=== PATIENT | female | born 1995 | race Caucasian/White ===

== ENCOUNTER 2018-05-04 13:16 | Emergency (ER) | payer OTHER ==
[2018-05-04 14:34] LABS: Urine Blood NEGATIVE (NEG); Urine Glucose NEGATIVE (NEG); Urine Protein 1+ (NEG); Urine Specific Gravity 1.025 (1.005-1.030); Urine pH 6.5 (5.0-7.0)
[2018-05-04] MEDS ORDERED: NA CHLORIDE 0.9% 1,000 ML ONE (14:55)
[2018-05-04 14:59] LABS: Absolute Lymphocytes (CBC) 1.6 K/uL (0.7-4.9); Absolute Monocytes 0.7 K/uL (0.1-1.3); Absolute Neutrophil 9.9 K/uL (1.8-8.0); Basophils % 0.6 % (0-1.3); Eosinophils % 0.7 % (0-4.4); Hematocrit 38.4 % (36.0-45.0); Lymphocytes % 12.6 % (15.3-44.8); MCH 29.3 pg (27.0-35.0); MCV 88.1 fL (80-100); MPV 8.3 fL (7.6-11.3); Monocytes % 5.6 % (3.3-12.3); RBC Red Blood Cell Count 4.36 M/uL (3.86-4.86)
[2018-05-04 15:01] LABS: Urine Amorphous Sediment 2+ /HPF (NONE SEEN); Urine Bacteria 20-50 /HPF (<20); Urine Culture Reflex Order REFLEXED; Urine RBC NONE SEEN /HPF (NONE SEEN)
[2018-05-04 15:26] LABS: BUN Blood Urea Nitrogen 9 mg/dL (7-18); Bicarbonate 26 mmol/L (21-32); Glucose Level 94 mg/dL (74-106); Potassium 3.6 mmol/L (3.5-5.1); Sodium Level 138 mmol/L (136-145)
[2018-05-04 15:34] LABS: HCG, Quantitative 31686 mIU/mL (1-3)
--- NOTE | 2018-05-04 16:30 | ER ---
Nurse's Notes [facility] Name: Maricel Nur Age: 22 yrs Sex: Female : 1995 Arrival Date: 05/04/2018 Time: 13:19 Bed 7 Private MD: None, None Diagnosis: Near syncope;Urinary tract infection, site not specified Presentation: 05/04 14:03 Presenting complaint: Patient states: Pt reports standing while at work, got jl7 lightheaded and ears started ringing, body got cold and clammy and "The next thing I knew I woke up on the floor.". Transition of care: patient was not received from another setting of care. Onset of symptoms was May 04, 2018 at 12:30. Risk Assessment: Do you want to hurt yourself or someone else? Patient reports no desire to harm self or others. Initial Sepsis Screen: Does the patient meet any 2 criteria? No. Patient's initial sepsis screen is negative. Does the patient have a suspected source of infection? No. Patient's initial sepsis screen is negative. Care prior to arrival: None. 14:03 Method Of Arrival: Ambulatory [facility] 14:03 Acuity: ALEXANDER 3 jl7 Triage Assessment: 14:08 General: Appears in no apparent distress. uncomfortable, Behavior is calm, cooperative, jl7 appropriate for age. Pain: Complains of pain in left lower quadrant Pain does not radiate. Pain currently is 3 out of 10 on a pain scale. Neuro: Level of Consciousness is awake, alert, obeys commands, Oriented to person, place, time, situation, Reports dizziness. 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 - Social history:: Smoking status: Patient/guardian denies using tobacco. - Ebola Screening: : No symptoms or risks identified at this time. Screenin:11 Abuse screen: Denies threats or abuse. Nutritional screening: No deficits noted. tw2 Tuberculosis screening: No symptoms or risk factors identified. Fall Risk None identified. Assessment: 15:01 General: Appears in no apparent distress. slender, Behavior is calm, cooperative, tw2 appropriate for age. Pain: Denies pain. Neuro: Level of Consciousness is awake, alert, obeys commands, Oriented to person, place, time, situation. Cardiovascular: Denies chest pain, shortness of breath, Heart tones S1 S2 Patient's skin is warm and dry. Respiratory: Airway is patent Respiratory effort is even, unlabored, Respiratory pattern is regular, symmetrical, Breath sounds are clear bilaterally. GI: No signs and/or symptoms were reported involving the gastrointestinal system. Abdomen is flat, Bowel sounds. : No signs and/or symptoms were reported regarding the genitourinary system. EENT: No signs and/or symptoms were reported regarding the EENT system. Derm: No signs and/or symptoms reported regarding the dermatologic system. Skin is intact, is healthy with good turgor, Skin temperature is warm. Musculoskeletal: Range of motion: intact in all extremities. 16:00 Reassessment: Patient appears in no apparent distress at this time. No changes from tw2 previously documented assessment. Patient and/or family updated on plan of care and expected duration. Pain level reassessed. Patient is alert, oriented x 3, equal unlabored respirations, skin warm/dry/pink. 16:52 Reassessment: Patient appears in no apparent distress at this time. No changes from tw2 previously documented assessment. Patient and/or family updated on plan of care and expected duration. Pain level reassessed. Patient is alert, oriented x 3, equal unlabored respirations, skin warm/dry/pink. 17:53 Reassessment: Patient appears in no apparent distress at this time. No changes from tw2 previously documented assessment. Patient and/or family updated on plan of care and expected duration. Pain level reassessed. Patient is alert, oriented x 3, equal unlabored respirations, skin warm/dry/pink. Vital Signs: 14:08 BP 106 / 71; Pulse 91; Resp 16 S; Temp 99.1(O); Pulse Ox 100% on R/A; Weight 56.25 kg jl7 (R); Height 5 ft. 5 in. (165.10 cm) (R); Pain 3/10; 15:36 BP 105 / 69 Supine; Pulse 70; Resp 17; tw2 15:36 BP 101 / 68 Sitting; Pulse 80; tw2 15:36 BP 103 / 63 Standing; Pulse 84; tw2 16:51 BP 105 / 71; Pulse 75; Resp 17; Pulse Ox 99% on R/A; tw2 17:53 BP 106 / 66; Pulse 63; Resp 17; Pulse Ox 98% on R/A; tw2 14:08 Body Mass Index 20.63 (56.25 kg, 165.10 cm) jl7 ED Course: 13:19 Patient arrived in ED. mr 13:19 None, None is Private Physician. mr 14:06 Triage completed. jl7 14:08 Arm band placed on right wrist. jl7 14:11 Bed in low position. Call light in reach. Pulse ox on. NIBP on. tw2 14:16 Thai Guillen NP is PHCP. pm1 14:16 Rudolph Jain MD is Attending Physician. pm1 14:40 Mona Lancaster RN is Primary Nurse. tw2 14:40 Missed attempt(s): 22 gauge in right antecubital area. blood collected and sent. tw2 Bleeding controlled, band aid applied, catheter tip intact. 14:53 EKG done, by certified pharmacy technician. reviewed by Thai Guillen NP. sm3 15:00 Missed attempt(s): 22 gauge in right antecubital area. Bleeding controlled, band aid tw2 applied, catheter tip intact. 15:27 US Transvaginal Ob In Process Unspecified. EDMS 15:35 EKG done, by certified pharmacy technician. reviewed by Thai Guillen NP. sm3 15:45 Inserted saline lock: 24 gauge in left antecubital area, using aseptic technique. tw2 15:45 No provider procedures requiring assistance completed. tw2 16:50 Awaiting: completion of IV fluids. tw2 17:27 Awaiting: completion of iv fluids, pt has 24 g, fluids placed on pump at this time. tw2 17:55 IV discontinued, intact, bleeding controlled, No redness/swelling at site. Pressure tw2 dressing applied. Administered Medications: 15:45 Drug: NS 0.9% 1000 ml Route: IV; Rate: 1000 ml; Site: left antecubital; hb 17:54 Follow up: Response: No adverse reaction; IV Status: Completed infusion; IV Intake: tw2 1000ml Intake: 17:54 IV: 1000ml; Total: 1000ml. tw2 Outcome: 16:30 Discharge ordered by . pm1 17:55 Discharged to home ambulatory. tw2 17:55 Condition: stable 17:55 Discharge instructions given to patient, Instructed on discharge instructions, follow up and referral plans. medication usage, Demonstrated understanding of instructions, follow-up care, medications, Prescriptions given X 1. 17:56 Patient left the ED. tw2 Signatures: Dispatcher [employer] [facility] OneilDonna mr GuillenThai, PARTS SALES COUNTERPERSON PARTS SALES COUNTERPERSON pm1 Beverly Pena, RN RN hb Mona Lancaster RN RN tw2 Tyrone Bañuelos RN RN jl7 Deysi Paniagua 3 Corrections: (The following items were deleted from the chart) 15:01 14:40 Missed attempt(s): 22 gauge in right antecubital area. Bleeding controlled, band tw2 aid applied, catheter tip intact. tw2 17:12 15:48 Inserted saline lock: 24 gauge in left antecubital area, using aseptic technique. tw2
--- NOTE | 2018-05-04 16:30 | EDPHYS ---
Physician Documentation [facility] Name: Maricel Nur Age: 22 yrs Sex: Female : 1995 Arrival Date: 05/04/2018 Time: 13:19 Bed 7 Private MD: None, None ED Physician Rudolph Jain HPI: 05/04 15:00 This 22 yrs old Female presents to ER via Ambulatory with complaints of 7 wks pm1 , Feeling faint and abdominal cramping. 15:00 The patient presents with Suprapubic cramping. Onset: The symptoms/episode pm1 began/occurred today. The symptoms do not radiate. Associated signs and symptoms: Pertinent positives: Feeling faint, Pertinent negatives: nausea and vomiting, chest pain, diarrhea, dysuria, fever, headache, shortness of breath, vaginal discharge. The symptoms are described as crampy. Modifying factors: The symptoms are alleviated by nothing, the symptoms are aggravated by nothing. The patient has not experienced similar symptoms in the past. Patient at work standing for a long period and started feeling faint. Patient did not pass out but felt like she was going to. Patient sat down and symptoms resolved. No chest pain or shortness of breath. Patient reports she is 7 weeks and has had some pelvic cramping today. No vaginal bleeding or discharge. 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 - Social history:: Smoking status: Patient/guardian denies using tobacco. - Ebola Screening: : No symptoms or risks identified at this time. ROS: 15:00 Constitutional: Negative for fever, chills, and weight loss, Eyes: Negative for injury, pm1 pain, redness, and discharge, ENT: Negative for injury, pain, and discharge, Neck: Negative for injury, pain, and swelling, Cardiovascular: Negative for chest pain, palpitations, and edema, Respiratory: Negative for shortness of breath, cough, wheezing, and pleuritic chest pain, Back: Negative for injury and pain, : Negative for injury, bleeding, discharge, and swelling, MS/Extremity: Negative for injury and deformity, Skin: Negative for injury, rash, and discoloration. 15:00 Abdomen/GI: Positive for abdominal cramps, of the suprapubic area. 15:00 Neuro: Positive for near syncope, Negative for headache, numbness, syncope, tingling, weakness. Exam: 15:00 Constitutional: This is a well developed, well nourished patient who is awake, alert, pm1 and in no acute distress. Head/Face: Normocephalic, atraumatic. Eyes: Pupils equal round and reactive to light, extra-ocular motions intact. Lids and lashes normal. Conjunctiva and sclera are non-icteric and not injected. Cornea within normal limits. Periorbital areas with no swelling, redness, or edema. ENT: Nares patent. No nasal discharge, no septal abnormalities noted. Tympanic membranes are normal and external auditory canals are clear. Oropharynx with no redness, swelling, or masses, exudates, or evidence of obstruction, uvula midline. Mucous membranes moist. Neck: Trachea midline, no thyromegaly or masses palpated, and no cervical lymphadenopathy. Supple, full range of motion without nuchal rigidity, or vertebral point tenderness. No Meningismus. Chest/axilla: Normal chest wall appearance and motion. Nontender with no deformity. No lesions are appreciated. Cardiovascular: Regular rate and rhythm with a normal S1 and S2. No gallops, murmurs, or rubs. Normal PMI, no JVD. No pulse deficits. Respiratory: Lungs have equal breath sounds bilaterally, clear to auscultation and percussion. No rales, rhonchi or wheezes noted. No increased work of breathing, no retractions or nasal flaring. Abdomen/GI: Soft, non-tender, with normal bowel sounds. No distension or tympany. No guarding or rebound. No evidence of tenderness throughout. Back: No spinal tenderness. No costovertebral tenderness. Full range of motion. Skin: Warm, dry with normal turgor. Normal color with no rashes, no lesions, and no evidence of cellulitis. MS/ Extremity: Pulses equal, no cyanosis. Neurovascular intact. Full, normal range of motion. Neuro: Awake and alert, GCS 15, oriented to person, place, time, and situation. Cranial nerves II-XII grossly intact. Motor strength 5/5 in all extremities. Sensory grossly intact. Cerebellar exam normal. Normal gait. Vital Signs: 14:08 BP 106 / 71; Pulse 91; Resp 16 S; Temp 99.1(O); Pulse Ox 100% on R/A; Weight 56.25 kg jl7 (R); Height 5 ft. 5 in. (165.10 cm) (R); Pain 3/10; 15:36 BP 105 / 69 Supine; Pulse 70; Resp 17; tw2 15:36 BP 101 / 68 Sitting; Pulse 80; tw2 15:36 BP 103 / 63 Standing; Pulse 84; tw2 16:51 BP 105 / 71; Pulse 75; Resp 17; Pulse Ox 99% on R/A; tw2 17:53 BP 106 / 66; Pulse 63; Resp 17; Pulse Ox 98% on R/A; tw2 14:08 Body Mass Index 20.63 (56.25 kg, 165.10 cm) 7 MDM: 14:25 Patient medically screened. pm1 15:27 Data reviewed: vital signs. Data interpreted: Pulse oximetry: on room air is 100 %. pm1 Interpretation: normal. 16:27 Counseling: I had a detailed discussion with the patient and/or guardian regarding: the pm1 historical points, exam findings, and any diagnostic results supporting the discharge/admit diagnosis, lab results, radiology results, the need for outpatient follow up, to return to the emergency department if symptoms worsen or persist or if there are any questions or concerns that arise at home. 05/04 14:31 Order name: Urine Dipstick--Ancillary (enter results); Complete Time: 14:42 bd 05/04 14:31 Order name: Urine --Ancillary (enter results); Complete Time: 14:42 bd 05/04 14:36 Order name: Quantitative Hcg; Complete Time: 16:25 pm1 05/04 14:36 Order name: Abo/rh Typing; Complete Time: 16:25 pm1 05/04 14:36 Order name: Basic Metabolic Panel; Complete Time: 16:25 pm05/04 14:36 Order name: CBC with Diff; Complete Time: 16:25 pm05/04 14:36 Order name: IV Saline Lock; Complete Time: 16:01 pm1 05/04 14:36 Order name: Labs collected and sent; Complete Time: 14:41 pm1 05/04 14:36 Order name: Urine Microscopic Only; Complete Time: 16:25 pm1 05/04 14:36 Order name: US Transvaginal Ob; Complete Time: 21:45 pm1 05/04 14:36 Order name: EKG; Complete Time: 14:36 pm1 05/04 15:03 Order name: Urine Culture [facility] 05/04 15:43 Order name: EKG Electrocardiogram; Complete Time: 15:56 EDAL 05/04 14:36 Order name: NPO; Complete Time: 14:41 pm1 05/04 14:36 Order name: EKG - Nurse/Tech; Complete Time: 15:56 pm1 05/04 14:42 Order name: Orthostatic Blood Pressure; Complete Time: 15:33 pm1 Administered Medications: 15:45 Drug: NS 0.9% 1000 ml Route: IV; Rate: 1000 ml; Site: left antecubital; hb 17:54 Follow up: Response: No adverse reaction; IV Status: Completed infusion; IV Intake: tw2 1000ml Disposition: 05/05 07:14 Co-signature as Attending Physician, Rudolph Jain MD. rn Disposition: 05/04/18 16:30 Discharged to Home. Impression: Near syncope, Urinary tract infection, site not specified. - Condition is Stable. - Discharge Instructions: Near-Syncope, and Urinary Tract Infection. - Prescriptions for Macrobid 100 mg Oral Capsule - take 1 capsule by ORAL route every 12 hours for 10 days; 20 capsule. - Medication Reconciliation Form, Thank You Letter, Antibiotic Education, Work release form form. - Follow up: Emergency Department; When: As needed; Reason: Worsening of condition. Follow up: Private Physician; When: 2 - 3 days; Reason: Recheck today's complaints, Continuance of care, Re-evaluation by your physician. - Problem is new. - Symptoms have improved. Signatures: Dispatcher [employer] [facility] Rudolph Jain MD MD rn Marinas, Patrick, NP DAMAGE PREVENTION COORDINATOR pm1 Beverly Pena RN RN Mona Reid RN RN tw2 Tyrone Bañuelos RN RN jl7 Corrections: (The following items were deleted from the chart) 05/04 16:31 16:30 05/04/2018 16:30 Discharged to Home. Impression: Near syncope. Condition is pm1 Stable. Forms are Medication Reconciliation Form, Thank You Letter, Antibiotic Education, Prescription Opioid Use. Follow up: Emergency Department; When: As needed; Reason: Worsening of condition. Follow up: Private Physician; When: 2 - 3 days; Reason: Recheck today's complaints, Continuance of care, Re-evaluation by your physician. Problem is new. Symptoms have improved. pm1 17:56 16:31 05/04/2018 16:30 Discharged to Home. Impression: Near syncope; Urinary tract tw2 infection, site not specified. Condition is Stable. Discharge Instructions: Near-Syncope. Forms are Medication Reconciliation Form, Thank You Letter, Antibiotic Education, Prescription Opioid Use. Follow up: Emergency Department; When: As needed; Reason: Worsening of condition. Follow up: Private Physician; When: 2 - 3 days; Reason: Recheck today's complaints, Continuance of care, Re-evaluation by your physician. Problem is new. Symptoms have improved. pm1
--- NOTE | 2018-05-04 18:07 | RAD REPORT ---
EXAM DESCRIPTION: US - Transvaginal OB - 05/04/2018 3:26 pm CLINICAL HISTORY: Abdominal cramping, COMPARISON: None. FINDINGS: Endovaginal sonography shows a long and closed cervical canal. No mass, hematoma or other abnormality of the cervical canal. Normal shaped gestational sac is present in the fundal portion of the endometrial cavity. Gestational sac and crown-rump length measurements correspond to 6 week 1 day age. Calculated GINA is 12/27/2018. Heart rate was 110 BPM. No hematoma or mass within the endometria l cavity. Left ovary contains a thin-walled anechoic 4.5 cm cyst. An anechoic 1.2 cm cyst present in the right ovary. No suspicious ovarian or adnexal finding. No free fluid collection. IMPRESSION: Single 6 week 1 day IUP. Heart rate is 110 BPM with GINA of 12/27/2018. No hematoma, mass or acute intrauterine finding. Large thin-walled 4.5 cm left ovarian cyst and 1.2 cm right ovarian cyst. No suspicious characteristi cs.
[2018-05-04 18:14] VITALS: TEMP 99.1
[2018-05-04 18:16] VITALS: BP 106/66; O2SAT 98
--- NOTE | 2018-05-04 18:48 | EKG ---
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
--- NOTE | 2018-05-04 18:48 | EKG ---
Test Date: 2018-05-04 Test Time: 14:44:46 Jewel Staker: INDRA MEASUREMENT RESULTS: Intervals: Rate: 72 KS: 120 QRSD: 82 QT: 376 QTc: 411 [place]: P: 74 KS: 120 QRS: 76 T: 65 INTERPRETIVE STATEMENTS: Normal sinus rhythm with sinus arrhythmia Biatrial enlargement Abnormal ECG Compared to ECG 08/24/2014 20:48:01 No significant changes Electronically Signed On 05-04-18 18:47:10 CDT by Pool Carlos
== END 2018-05-04 17:56 | disposition home or self-care (01) ==
LOC: ER 13:16
DX: O23.41 Unspecified infection of urinary tract in pregnancy, first trimester (principal); R55 Syncope and collapse; Z3A.01 Less than 8 weeks gestation of pregnancy; Z88.1 Allergy status to other antibiotic agents; Z88.8 Allergy status to other drugs, medicaments and biological substances
CPT/HCPCS: 36415; 76817; 80048; 81003; 81015; 81025; 84702; 85025; 86900; 86901; 87086; 87088; 93005; 96360; 96361; 99284; J7030

== ENCOUNTER 2018-05-13 09:00 | Emergency (ER) | payer OTHER ==
[2018-05-13] MEDS ORDERED: FAMOTIDINE 20 MG/2 ML VIAL IV ONE (09:42)
[2018-05-13] MEDS ORDERED: PROMETHAZINE 25 MG/ML VIAL ONE (09:42)
[2018-05-13 09:58] LABS: Urine Blood NEGATIVE (NEG); Urine Glucose NEGATIVE (NEG); Urine Protein NEGATIVE (NEG); Urine pH 8.5 (5.0-7.0)
[2018-05-13 10:10] LABS: Absolute Lymphocytes (CBC) 2.1 K/uL (0.7-4.9); Absolute Monocytes 0.7 K/uL (0.1-1.3); Absolute Neutrophil 8.7 K/uL (1.8-8.0); Basophils % 0.4 % (0-1.3); Eosinophils % 1.2 % (0-4.4); Hematocrit 37.9 % (36.0-45.0); MCH 29.9 pg (27.0-35.0); MCV 89.3 fL (80-100); MPV 8.2 fL (7.6-11.3); Monocytes % 6.3 % (3.3-12.3); RBC Red Blood Cell Count 4.25 M/uL (3.86-4.86)
[2018-05-13 10:19] LABS: ALT/SGPT 15 U/L (12-78); AST/SGOT 11 U/L (15-37); Albumin 3.6 g/dL (3.4-5.0); Alkaline Phosphatase 62 U/L (45-117); BUN Blood Urea Nitrogen 10 mg/dL (7-18); Bicarbonate 28 mmol/L (21-32); Bilirubin Direct < 0.1 mg/dL (0-0.2); Bilirubin Total 0.4 mg/dL (0.2-1.0); Glucose Level 87 mg/dL (74-106); Lipase 86 U/L (73-393); Protein, Total 7.8 g/dL (6.4-8.2); Sodium Level 137 mmol/L (136-145)
--- NOTE | 2018-05-13 11:50 | RAD REPORT ---
EXAM DESCRIPTION: US - Abdomen Exam Limited - 05/13/2018 11:11 am CLINICAL HISTORY: Abdominal pain Preliminary findings provided at the time of the study. COMPARISON: CT study June 2017 FINDINGS: Limited sonography of the right lower quadrant performed. No abdominal wall mass or hernia defects seen. Peristalsing bowel loops were seen. No free fluid or f ixed mass lesion identifiable. Appendix is not uniquely identifiable and cannot be further assessed. IMPRESSION: Limited right lower quadrant examination did not identify the appendix. Appendicitis can not be evaluated. No hernia defect, abdominal wall mass or focal right lower quadrant abnormality seen.
--- NOTE | 2018-05-13 13:25 | EDPHYS ---
Physician Documentation [facility] Name: Maricel Nur Age: 22 yrs Sex: Female : 1995 Arrival Date: 05/13/2018 Time: 09:06 Bed 19 Private MD: ED Physician Shad Mendoza HPI: 05/13 10:13 This 22 yrs old Female presents to ER via Ambulatory with complaints of kdr Nausea/Vomiting/Diarrhea. 10:13 The patient presents to the emergency department with nausea, that is mild, vomiting, kdr that is intermittent, diarrhea, that is intermittent. Onset: The symptoms/episode began/occurred gradually, 2 day(s) ago. Possible causes: unknown, . The symptoms are aggravated by nothing. food , The symptoms are alleviated by remaining still. Associated signs and symptoms: Pertinent positives: abdominal pain, diarrhea, GI bleeding, nausea, vomiting, can't keep any food down. Severity of symptoms: At their worst the symptoms were mild moderate just prior to arrival, in the emergency department the symptoms are unchanged. The patient has not experienced similar symptoms in the past. The patient has not recently seen a physician. 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 - Social history:: Smoking status: Patient/guardian denies using tobacco. - Ebola Screening: : Patient denies exposure to infectious person Patient denies travel to an Ebola-affected area in the 21 days before illness onset. ROS: 10:13 Constitutional: Negative for fever, chills, and weight loss, Eyes: Negative for injury, kdr pain, redness, and discharge, ENT: Negative for injury, pain, and discharge, Neck: Negative for injury, pain, and swelling, Cardiovascular: Negative for chest pain, palpitations, and edema, Respiratory: Negative for shortness of breath, cough, wheezing, and pleuritic chest pain, Back: Negative for injury and pain, : Negative for injury, bleeding, discharge, and swelling, MS/Extremity: Negative for injury and deformity, Skin: Negative for injury, rash, and discoloration, Neuro: Negative for headache, weakness, numbness, tingling, and seizure activity. Psych: Negative for depression, anxiety, suicide ideation, homicidal ideation, and hallucinations, Allergy/Immunology: Negative for hives, rash, and allergies, Endocrine: Negative for neck swelling, polydipsia, polyuria, polyphagia, and marked weight changes, Hematologic/Lymphatic: Negative for swollen nodes, abnormal bleeding, and unusual bruising. 10:13 Abdomen/GI: Positive for abdominal pain, nausea, vomiting, and diarrhea, rectal bleeding, Negative for constipation, abdominal cramps, abdominal distension, dysphagia, hematemesis, black/tarry stool, rectal pain. Exam: 10:13 Constitutional: This is a well developed, well nourished patient who is awake, alert, kdr and in no acute distress. Head/Face: Normocephalic, atraumatic. Eyes: Pupils equal round and reactive to light, extra-ocular motions intact. Lids and lashes normal. Conjunctiva and sclera are non-icteric and not injected. Cornea within normal limits. Periorbital areas with no swelling, redness, or edema. Neck: Trachea midline, no thyromegaly or masses palpated, and no cervical lymphadenopathy. Supple, full range of motion without nuchal rigidity, or vertebral point tenderness. No Meningismus. Chest/axilla: Normal chest wall appearance and motion. Nontender with no deformity. No lesions are appreciated. Cardiovascular: Regular rate and rhythm with a normal S1 and S2. No gallops, murmurs, or rubs. Normal PMI, no JVD. No pulse deficits. Respiratory: Lungs have equal breath sounds bilaterally, clear to auscultation and percussion. No rales, rhonchi or wheezes noted. No increased work of breathing, no retractions or nasal flaring. Back: No spinal tenderness. No costovertebral tenderness. Full range of motion. Skin: Warm, dry with normal turgor. Normal color with no rashes, no lesions, and no evidence of cellulitis. MS/ Extremity: Pulses equal, no cyanosis. Neurovascular intact. Full, normal range of motion. Neuro: Awake and alert, GCS 15, oriented to person, place, time, and situation. Cranial nerves II-XII grossly intact. Motor strength 5/5 in all extremities. Sensory grossly intact. Cerebellar exam normal. Normal gait. Psych: Awake, alert, with orientation to person, place and time. Behavior, mood, and affect are within normal limits. 10:13 Abdomen/GI: Inspection: abdomen appears normal, Bowel sounds: active, Palpation: soft, mild abdominal tenderness, in the right lower quadrant, mass, is not appreciated, rebound tenderness, is not appreciated, voluntary guarding, is not appreciated, involuntary guarding, is not appreciated. Vital Signs: 09:25 BP 106 / 70; Pulse 69; Resp 15; Temp 98.5(TE); Pulse Ox 100% on R/A; Weight 57.15 kg; ss Height 5 ft. 5 in. (165.10 cm); Pain 4/10; 10:30 BP 115 / 75; Pulse 54; Resp 16; Pulse Ox 99% on R/A; Pain 3/10; em 11:30 BP 109 / 82; Pulse 61; Resp 15; Pulse Ox 100% on R/A; ss 12:26 BP 116 / 67; Pulse 57; Resp 17; Pulse Ox 100% on R/A; Pain 4/10; ss 13:11 BP 110 / 55; Pulse 67; Resp 18; Temp 99.1(O); Pulse Ox 100% on R/A; Pain 4/10; em 09:25 Body Mass Index 20.97 (57.15 kg, 165.10 cm) MDM: 10:25 Data reviewed: vital signs, nurses notes. ED course: Reviewed US report from 05/04/2018 kdr - normal single IUP 6D2wk. 13:24 Patient medically screened. kdr 13:24 ED course: Given that the patient is having RLQ pain, low WBC count, n/v/d - will send [facility]. ED course: On re-evaluation, the patient continues to have RLQ pain but no rebound. N/v is improved.. 05/13 09:29 Order name: Basic Metabolic Panel; Complete Time: : kdr 05/13 09:29 Order name: CBC with Diff; Complete Time: 10: kdr 05/13 09:29 Order name: Creatinine for Radiology; Complete Time: : kdr 05/13 09:29 Order name: Hepatic Function; Complete Time: : kdr 05/13 09:29 Order name: Lipase; Complete Time: 10:28 kdr 05/13 09:29 Order name: IV Saline Lock; Complete Time: 10:45 kdr 05/13 09:29 Order name: Labs collected and sent; Complete Time: 10:46 kdr 05/13 09:29 Order name: Urine Dipstick-Ancillary (obtain specimen); Complete Time: 09:35 kdr 05/13 09:51 Order name: Urine Dipstick--Ancillary (enter results); Complete Time: 10:10 eb 05/13 09:51 Order name: Urine --Ancillary (enter results); Complete Time: 10:10 eb 05/13 10:28 Order name: US Abdomen Limited; Complete Time: 12:04 kdr Administered Medications: 10:00 Drug: Phenergan 12.5 mg Route: IVP; Site: left antecubital; ss 10:29 Follow up: Response: No adverse reaction; Nausea is decreased em 10:00 Drug: Pepcid 20 mg Route: IVP; Site: left antecubital; ss 10:29 Follow up: Response: No adverse reaction em Disposition: 05/13/18 13:24 Transfer ordered to [facility]. Diagnosis are Abdominal and pelvic pain, RLQ pain. - Reason for transfer: Higher level of care. - Accepting physician is Jailene Esposito. - Condition is Fair. - Problem is new. - Symptoms are unchanged. Signatures: Dispatcher [employer] EDRI Shad Mendoza MD MD kdr Ac Ly, LINE RIDER LINE RIDER em Matilde Taylor, RN RN ss Corrections: (The following items were deleted from the chart) 09:59 09:29 UA MICROSCOPIC+U.LAB.BRZ ordered. [facility] EDRI 13:52 13:24 05/13/2018 13:24 Transfer ordered to [facility]. Diagnosis is Abdominal and em pelvic pain; RLQ pain. Reason for transfer: Higher level of care. Accepting physician is Jailene Esposito. Condition is Fair. Problem is new. Symptoms are unchanged. kdr
--- NOTE | 2018-05-13 13:25 | ER ---
Nurse's Notes [facility] Name: Maricel Nur Age: 22 yrs Sex: Female : 1995 Arrival Date: 05/13/2018 Time: 09:06 Bed 19 Private MD: Diagnosis: Abdominal and pelvic pain;RLQ pain Presentation: 05/13 09:19 Presenting complaint: Patient states: N/V and blood tinged diarrhea that began ss yesterday. Pt reports she is 8 weeks and 2 days . Denies vaginal bleeding. Transition of care: patient was not received from another setting of care. Onset of symptoms was May 12, 2018. Risk Assessment: Do you want to hurt yourself or someone else? Patient reports no desire to harm self or others. Initial Sepsis Screen: Does the patient meet any 2 criteria? No. Patient's initial sepsis screen is negative. Does the patient have a suspected source of infection? No. Patient's initial sepsis screen is negative. Care prior to arrival: None. 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 - Social history:: Smoking status: Patient/guardian denies using tobacco. - Ebola Screening: : Patient denies exposure to infectious person Patient denies travel to an Ebola-affected area in the 21 days before illness onset. Screenin:22 Abuse screen: Denies threats or abuse. Nutritional screening: No deficits noted. em Tuberculosis screening: No symptoms or risk factors identified. Fall Risk None identified. Assessment: 09:30 General: Appears in no apparent distress. uncomfortable, Behavior is calm, cooperative, em Reports N/V/D since yesterday evening, vomited several times, c/o LRQ pain, states she is 8 weeks , denies pain with urination. Pain: Complains of pain in right lower quadrant. Neuro: Level of Consciousness is awake, alert, obeys commands, Oriented to person, place, time, situation. Cardiovascular: Denies chest pain, shortness of breath, Capillary refill < 3 seconds Patient's skin is warm and dry. Respiratory: Airway is patent Respiratory effort is even, unlabored, Respiratory pattern is regular, symmetrical. GI: Abdomen is flat, Bowel sounds present X 4 quads. Abd is soft X 4 quads Abdomen is tender to palpation in right lower quadrant Reports diarrhea, nausea, vomiting. : Urine is clear. EENT: No signs and/or symptoms were reported regarding the EENT system. Derm: Skin is intact, Skin is pink, warm \T\ dry. Musculoskeletal: Range of motion: intact in all extremities. 09:40 General: The previous assessment is accurate, call light remains within reach. . ss 10:30 Reassessment: Patient appears in no apparent distress at this time. Patient and/or em family updated on plan of care and expected duration. Pain level reassessed. Patient is alert, oriented x 3, equal unlabored respirations, skin warm/dry/pink. Patient states feeling better. 11:30 Reassessment: Patient appears in no apparent distress at this time. Patient and/or ss family updated on plan of care and expected duration. Pain level reassessed. Patient is alert, oriented x 3, equal unlabored respirations, skin warm/dry/pink. warm blanket given. 12:25 Reassessment: Patient appears in no apparent distress at this time. Patient and/or ss family updated on plan of care and expected duration. Pain level reassessed. Patient is alert, oriented x 3, equal unlabored respirations, skin warm/dry/pink. rates pain 4/10, currently doesn't want any medications Patient states feeling better. 13:21 Reassessment: Patient appears in no apparent distress at this time. Patient and/or em family updated on plan of care and expected duration. Pain level reassessed. Patient is alert, oriented x 3, equal unlabored respirations, skin warm/dry/pink. Patient states symptoms have improved. 13:25 Reassessment: Patient appears in no apparent distress at this time. report given to marco Connelly RN at [facility], pending EMS to transfer pt. 13:50 Reassessment: Patient appears in no apparent distress at this time. Patient and/or em family updated on plan of care and expected duration. Pain level reassessed. Patient is alert, oriented x 3, equal unlabored respirations, skin warm/dry/pink. report given to EMS, no further questions. Vital Signs: 09:25 BP 106 / 70; Pulse 69; Resp 15; Temp 98.5(TE); Pulse Ox 100% on R/A; Weight 57.15 kg; ss Height 5 ft. 5 in. (165.10 cm); Pain 4/10; 10:30 BP 115 / 75; Pulse 54; Resp 16; Pulse Ox 99% on R/A; Pain 3/10; em 11:30 BP 109 / 82; Pulse 61; Resp 15; Pulse Ox 100% on R/A; ss 12:26 BP 116 / 67; Pulse 57; Resp 17; Pulse Ox 100% on R/A; Pain 4/10; ss 13:11 BP 110 / 55; Pulse 67; Resp 18; Temp 99.1(O); Pulse Ox 100% on R/A; Pain 4/10; em 09:25 Body Mass Index 20.97 (57.15 kg, 165.10 cm) ED Course: 09:06 Patient arrived in ED. as 09:07 Shad Mendoza MD is Attending Physician. kdr 09:12 Ac Ly LVN is Primary Nurse. em 09:24 Triage completed. ss 09:25 Arm band placed on left wrist. ss 09:45 Initial lab(s) drawn, by me, sent to lab. Urine collected: clean catch specimen, clear. em Inserted saline lock: 20 gauge in left antecubital area, using aseptic technique. Blood collected. 10:22 Patient has correct armband on for positive identification. Bed in low position. Call em light in reach. Side rails up X2. 11:02 Ultrasound completed. Patient tolerated well. sg3 11:11 US Abdomen Limited In Process Unspecified. EDMS 13:05 \[id number] initiated transfer with Pop Barnett at the [facility] transfer Center.\T\[id number] eb Administrative Approval gishaistan by Pop. Dr. Bonny Lozano has accepted the patient in transfer she does not need to speak to our doctor for doc to doc at this time. Patient is to go to the ER. Report to be called to [phone]. 13:20 No provider procedures requiring assistance completed. em 13:43 Patient transferred, IV remains in place. em Administered Medications: 10:00 Drug: Phenergan 12.5 mg Route: IVP; Site: left antecubital; ss 10:29 Follow up: Response: No adverse reaction; Nausea is decreased em 10:00 Drug: Pepcid 20 mg Route: IVP; Site: left antecubital; ss 10:29 Follow up: Response: No adverse reaction em Outcome: 13:24 ER care complete, transfer ordered by . kdr 13:43 Transferred by ground EMS to [facility], Transfer form em completed. 13:43 Condition: good 13:43 Instructed on the need for transfer, Demonstrated understanding of instructions. 13:52 Patient left the ED. em Signatures: Dispatcher [employer] Shad Porras MD MD kdr Munoz, Edgar, ADJUNCT TRAINER ADJUNCT TRAINER Maame Iqbal Shelby, RN RN Jaylyn Luciano 3 Sharonda Porter
[2018-05-13 14:06] VITALS: O2SAT 100
[2018-05-13 14:08] VITALS: BP 110/55; TEMP 99.1
== END 2018-05-13 13:52 | disposition short-term general hospital (02) ==
LOC: ER 09:00
DX: R10.2 Pelvic and perineal pain (principal); R10.31 Right lower quadrant pain; R11.2 Nausea with vomiting, unspecified; R19.7 Diarrhea, unspecified; Z88.1 Allergy status to other antibiotic agents
CPT/HCPCS: 36415; 76705; 80048; 80076; 81003; 81025; 83690; 85025; 96374; 96375; 99285; J2550

== ENCOUNTER 2018-09-01 09:38 | Emergency (ER) | payer OTHER ==
--- NOTE | 2018-09-01 10:38 | RAD REPORT ---
EXAM DESCRIPTION: RAD - Chest Single View - 09/01/2018 10:30 am CLINICAL HISTORY: HEMOPTYSIS Chest pain. COMPARISON: Chest Pa And Lat (2 Views) dated 11/09/2016; CHEST SINGLE VIEW dated 08/24/2014; CHEST PA AND LAT 2 VIEW dated 01/20/2014 FINDINGS: Portable technique limits examination quality. The lungs are grossly clear. The heart is normal in size. No displaced fractures.Mild dextroscoliosis of the upper thoracic spine. IMPRESSION: No acute intrathoracic process suspected.
[2018-09-01 10:55] LABS: Absolute Lymphocytes (CBC) 1.9 K/uL (0.7-4.9); Absolute Monocytes 0.9 K/uL (0.1-1.3); Absolute Neutrophil 10.2 K/uL (1.8-8.0); Basophils % 0.4 % (0-1.3); Eosinophils % 0.9 % (0-4.4); Lymphocytes % 14.6 % (15.3-44.8); MCH 30.7 pg (27.0-35.0); MCV 90.7 fL (80-100); Monocytes % 6.9 % (3.3-12.3); RBC Red Blood Cell Count 3.75 M/uL (3.86-4.86)
[2018-09-01 10:58] LABS: BUN Blood Urea Nitrogen 10 mg/dL (7-18); Bicarbonate 20 mmol/L (21-32); Glucose Level 82 mg/dL (74-106); Potassium 3.9 mmol/L (3.5-5.1); Sodium Level 138 mmol/L (136-145)
--- NOTE | 2018-09-01 11:42 | ER ---
Nurse's Notes [facility] Name: Maricel Nur Age: 22 yrs Sex: Female : 1995 Arrival Date: 09/01/2018 Time: 09:42 Bed 20 Private MD: None, None Diagnosis: Epistaxis Presentation: 09/01 09:48 Presenting complaint: Patient states: I am occasionally get the urge to spit up and la1 there is blood clots when I do, I have also been having nose bleeds for the last week and my chest has been hurting. Transition of care: patient was not received from another setting of care. Onset of symptoms was September 01, 2018. Risk Assessment: Do you want to hurt yourself or someone else? Patient reports no desire to harm self or others. Initial Sepsis Screen: Does the patient meet any 2 criteria? No. Patient's initial sepsis screen is negative. Does the patient have a suspected source of infection? No. Patient's initial sepsis screen is negative. Care prior to arrival: None. 09:48 Method Of Arrival: Ambulatory la1 09:48 Acuity: ALEXANDER 3 la1 Historical: - Allergies: 09:49 Cefprozil; la1 09:49 Cefzil; la1 - PMHx: 09:49 Colitis; Ovarian cyst; Efrain Wai Syndrome; stickler syndrome; la1 - Immunization history:: Adult Immunizations up to date. - Social history:: Smoking status: Patient/guardian denies using tobacco. - Ebola Screening: : No symptoms or risks identified at this time. Screenin:07 Abuse screen: Denies threats or abuse. Nutritional screening: No deficits noted. em Tuberculosis screening: No symptoms or risk factors identified. Fall Risk None identified. Assessment: 10:18 General: Appears in no apparent distress. comfortable, Behavior is calm, cooperative, em Denies fever. Pain: Complains of pain in throat Pain currently is 4 out of 10 on a pain scale. Neuro: Level of Consciousness is awake, alert, obeys commands, Oriented to person, place, time, situation. Cardiovascular: Capillary refill < 3 seconds Patient's skin is warm and dry. Respiratory: Airway is patent Respiratory effort is even, unlabored, Breath sounds are clear bilaterally. Denies cough. GI: Abdomen is flat, Patient currently denies nausea, vomiting. : Urine is clear. EENT: Oral mucosa is moist. Throat is clear is pink Reports sore throat. Derm: Skin is intact, Skin is pink, warm \T\ dry. Musculoskeletal: Capillary refill < 3 seconds, Range of motion: intact in all extremities. 10:18 Reassessment: I agree with assessment completed by Ac Ly LVN . aa5 11:14 Reassessment: Patient appears in no apparent distress at this time. Patient and/or em family updated on plan of care and expected duration. Pain level reassessed. Patient is alert, oriented x 3, equal unlabored respirations, skin warm/dry/pink. Patient states feeling better. Vital Signs: 09:49 BP 113 / 74; Pulse 91; Resp 16; Temp 98.0; Pulse Ox 98% on R/A; Weight 63.5 kg; Height la1 5 ft. 5 in. (165.10 cm); 10:43 BP 105 / 64; Pulse 65; Resp 18; Pulse Ox 98% on R/A; Pain 4/10; em 11:51 BP 114 / 73; Pulse 75; Resp 18; Pulse Ox 99% on R/A; em 09:49 Body Mass Index 23.30 (63.50 kg, 165.10 cm) la1 ED Course: 09:42 Patient arrived in ED. sb2 09:43 None, None is Private Physician. sb2 09:49 Triage completed. la1 09:49 Arm band placed on right wrist. la1 09:51 Rk Batres PA is PHCP. jr8 09:51 Huey Cardona MD is Attending Physician. jr8 09:53 Ac Ly LVN is Primary Nurse. em 10:07 Patient has correct armband on for positive identification. Placed in gown. Bed in low em position. Call light in reach. 10:29 XRAY Chest (1 view) In Process Unspecified. EDMS 10:30 Initial lab(s) drawn, by me, sent to lab. Inserted saline lock: 22 gauge in left em antecubital area, using aseptic technique. Blood collected. 11:50 No provider procedures requiring assistance completed. IV discontinued, intact, em bleeding controlled, No redness/swelling at site. Pressure dressing applied. Administered Medications: No medications were administered Outcome: 11:42 Discharge ordered by MD. jr8 11:50 Discharged to home ambulatory. em 11:50 Condition: good 11:50 Discharge instructions given to patient, Instructed on discharge instructions, follow up and referral plans. Demonstrated understanding of instructions, follow-up care. 11:52 Patient left the ED. em Signatures: Dispatcher [employer] EDAc Gregory, JEWEL BEARING FACER JEWEL BEARING FACER em Shelby Ramirez, RN RN aa5 Rk Batres PA PA jr8 Girish Workman RN RN la1 Shobha Andrews 2
--- NOTE | 2018-09-01 11:43 | EDPHYS ---
Physician Documentation [facility] Name: Maricel Nur Age: 22 yrs Sex: Female : 1995 Arrival Date: 09/01/2018 Time: 09:42 Bed 20 Private MD: None, None ED Physician Huey Cardona HPI: 09/01 10:34 This 22 yrs old Female presents to ER via Ambulatory with complaints of jr8 Productive Cough - BLOOD. 10:34 Onset: The symptoms/episode began/occurred acutely. Severity of symptoms: At their jr8 worst the symptoms were mild. Modifying factors: The symptoms are alleviated by nothing, the symptoms are aggravated by nothing. Associated signs and symptoms: The patient has no apparent associated signs or symptoms. The patient has not experienced similar symptoms in the past. The patient has not recently seen a physician. Patient is 5 months . Stated that she is having frequent bloody noses, gum bleeding, and started to cough up blood over the past two weeks. Denies any recent illness . Historical: - Allergies: 09:49 Cefprozil; la1 09:49 Cefzil; la1 - PMHx: 09:49 Colitis; Ovarian cyst; Efrain Wai Syndrome; stickler syndrome; la1 - Immunization history:: Adult Immunizations up to date. - Social history:: Smoking status: Patient/guardian denies using tobacco. - Ebola Screening: : No symptoms or risks identified at this time. ROS: 10:34 Eyes: Negative for injury, pain, redness, and discharge, Neck: Negative for injury, jr8 pain, and swelling, Cardiovascular: Negative for chest pain, palpitations, and edema, Abdomen/GI: Negative for abdominal pain, nausea, vomiting, diarrhea, and constipation, Back: Negative for injury and pain, MS/Extremity: Negative for injury and deformity, Skin: Negative for injury, rash, and discoloration, Neuro: Negative for headache, weakness, numbness, tingling, and seizure. 10:34 ENT: Positive for nose bleed, sore throat, Negative for drainage from ear(s), ear pain, nasal discharge, sinus congestion, sinus pain, dental pain, difficulty swallowing, difficulty handling secretions. 10:34 Respiratory: Positive for cough, hemoptysis, Negative for dyspnea on exertion, shortness of breath, wheezing. Exam: 10:34 Head/Face: Normocephalic, atraumatic. Eyes: Pupils equal round and reactive to light, jr8 extra-ocular motions intact. Lids and lashes normal. Conjunctiva and sclera are non-icteric and not injected. Cornea within normal limits. Periorbital areas with no swelling, redness, or edema. ENT: Nares patent. No nasal discharge, no septal abnormalities noted. Tympanic membranes are normal and external auditory canals are clear. Oropharynx with no redness, swelling, or masses, exudates, or evidence of obstruction, uvula midline. Mucous membranes moist. Neck: Trachea midline, no thyromegaly or masses palpated, and no cervical lymphadenopathy. Supple, full range of motion without nuchal rigidity, or vertebral point tenderness. No Meningismus. Cardiovascular: Regular rate and rhythm with a normal S1 and S2. No gallops, murmurs, or rubs. Normal PMI, no JVD. No pulse deficits. Respiratory: Lungs have equal breath sounds bilaterally, clear to auscultation and percussion. No rales, rhonchi or wheezes noted. No increased work of breathing, no retractions or nasal flaring. Abdomen/GI: Soft, non-tender, with normal bowel sounds. No distension or tympany. No guarding or rebound. No evidence of tenderness throughout. Back: No spinal tenderness. No costovertebral tenderness. Full range of motion. Skin: Warm, dry with normal turgor. Normal color with no rashes, no lesions, and no evidence of cellulitis. MS/ Extremity: Pulses equal, no cyanosis. Neurovascular intact. Full, normal range of motion. Neuro: Awake and alert, GCS 15, oriented to person, place, time, and situation. Cranial nerves II-XII grossly intact. Motor strength 5/5 in all extremities. Sensory grossly intact. Cerebellar exam normal. Normal gait. Vital Signs: 09:49 BP 113 / 74; Pulse 91; Resp 16; Temp 98.0; Pulse Ox 98% on R/A; Weight 63.5 kg; Height la1 5 ft. 5 in. (165.10 cm); 10:43 BP 105 / 64; Pulse 65; Resp 18; Pulse Ox 98% on R/A; Pain 4/10; em 11:51 BP 114 / 73; Pulse 75; Resp 18; Pulse Ox 99% on R/A; em 09:49 Body Mass Index 23.30 (63.50 kg, 165.10 cm) la1 MDM: 09:51 Patient medically screened. jr8 11:41 Differential Diagnosis: Bronchitis Influenza Upper Respiratory Infection Sinusitis jr8 Pneumonia Other TB, related thrombocytopenia. Data reviewed: vital signs, nurses notes, lab test result(s), radiologic studies, plain films. Data interpreted: Pulse oximetry: on room air is 98 %. Interpretation: normal. Counseling: I had a detailed discussion with the patient and/or guardian regarding: the historical points, exam findings, and any diagnostic results supporting the discharge/admit diagnosis, lab results, radiology results, the need for outpatient follow up, a family practitioner, an OB/Gyne specialist, to return to the emergency department if symptoms worsen or persist or if there are any questions or concerns that arise at home. 09/01 10:05 Order name: CBC with Diff; Complete Time: 11:33 [facility] 09/01 10:05 Order name: Basic Metabolic Panel; Complete Time: 11:33 [facility] 09/01 10:35 Order name: Strep; Complete Time: 11:33 09/01 11:08 Order name: Throat Culture [facility] 09/01 10:05 Order name: IV; Complete Time: 10:34 [facility] 09/01 10:05 Order name: XRAY Chest (1 view); Complete Time: 10:42 [facility] 09/01 10:05 Order name: Urine Dipstick-Ancillary (obtain specimen); Complete Time: 10:11 jr8 Administered Medications: No medications were administered Disposition: 09/02 09:57 Co-signature as Attending Physician, Huey Cardona MD. Disposition: 09/01/18 11:42 Discharged to Home. Impression: Epistaxis. - Condition is Stable. - Discharge Instructions: Nosebleed, Adult. - Medication Reconciliation Form, Thank You Letter, Antibiotic Education, Prescription Opioid Use form. - Follow up: Private Physician; When: 1 week; Reason: If symptoms return, Recheck today's complaints, Continuance of care, Re-evaluation by your physician. - Problem is new. - Symptoms have improved. Signatures: Dispatcher [facility], SCHOOL NURSE SCHOOL NURSE em Rk Batres, ELY PA jr8 Girish Workman RN RN la1 Huey Cardona MD MD gs Corrections: (The following items were deleted from the chart) 09/01 11:52 11:42 09/01/2018 11:42 Discharged to Home. Impression: Epistaxis. Condition is Stable. em Forms are Medication Reconciliation Form, Thank You Letter, Antibiotic Education, Prescription Opioid Use. Follow up: Private Physician; When: 1 week; Reason: If symptoms return, Recheck today's complaints, Continuance of care, Re-evaluation by your physician. Problem is new. Symptoms have improved. jr8
[2018-09-01 12:01] VITALS: TEMP 98
[2018-09-01 12:03] VITALS: BP 114/73; O2SAT 99
== END 2018-09-01 11:52 | disposition home or self-care (01) ==
LOC: ER 09:38
DX: R04.0 Epistaxis (principal)
CPT/HCPCS: 36415; 71045; 80048; 85025; 87070; 87081; 99283

== ENCOUNTER 2020-09-21 06:48 | Emergency (ER) | payer OTHER ==
--- OUTSIDE RECORDS SUMMARY | 2020-09-21 06:50 | XMS REPORT | Continuity of Care Document ---
:1995 Author Organization [facility] t Address [address] [place] [address] Care Team Providers Name Role Phone Marcello Pinedo Attending Clinician Carl PRITCHARD C Attending Clinician Tanner Carballo MD Attending Clinician Verito Davis MD Attending Clinician Doctor Unassigned, Name Attending Clinician Unavailable Jose PEREZ Attending Clinician Tanner Carballo MD Admitting Clinician Jose PEREZ Admitting Clinician Problems This patient has no known problems. Allergies, Adverse Reactions, Alerts This patient has no known allergies or adverse reactions. Medications This patient has no known medications. Procedures This patient has no known procedures. Encounters Start End Encounter Admission Attending Care Care Encounter Source Date/Time Date/Time Type Type Clinicians Facility Department ID 2020-09-07 2020-09-07 Routine SUSHMA Gil [id number] 10:06:40 10:21:40 Gianni Armendariz NATUROPATHIC PHYSICIAN [id number] Visit [facility]IONAL [id number] MATERNAL [id number] & CHILD [address] [place] [address] 2020-08-26 2020-08-26 Telephone SUSHMA Henry [id number] 00:00:00 00:00:00 Mally C NATUROPATHIC PHYSICIAN [id number] REG[facility]AL [id number] MATERNAL [id number] & CHILD 107 [facility] 2020-08-14 2020-08-16 Hospital Edel Carballo Tanner HOFF [id number] 03:09:00 12:55:00 Encounter Vonnie [place] 350. [id number] [id number] 2020-08-14 2020-08-14 Orders Doctor KAVYA [id number] 00:00:00 00:00:00 Only Unassigned, DILIP [id number] [place] [id number] 2020-08-10 2020-08-11 [facility] Maricel Garcia [facility] [id number] 23:10:00 01:00:00 Encounter Jovanny [id number] [place] [id number] [place] [id number] 2020-08-06 2020-08-06 Routine [facility], [facility] [id number] 13:48:55 14:59:03 Mally C NATUROPATHIC PHYSICIAN [id number] Visit [facility] [id number] MATERNAL [id number] & CHILD 107 [facility] 2020-08-03 2020-08-03 Telephone [facility] [id number] 00:00:00 00:00:00 Mally C NATUROPATHIC PHYSICIAN [id number] [facility] [id number] MATERNAL [id number] & CHILD 107 [facility] Results This patient has no known results.
--- OUTSIDE RECORDS SUMMARY | 2020-09-21 06:50 | XMS REPORT | Summary of Care ---
:1995 Author Organization [facility] Address [address] [place] [address] Care Team Providers Name Role Phone Tonie Henry [facility] Primary Care Provider Reason for Visit Reason Comments Care Encounter Details Date Type Department Care Team Description 06/26/2020 Routine [facility]- Carl, Georgiana vision of high risk , antepartum (Primary Dx); Visit [place] Mally Schilling [facility] Multiparity; [address] Histor y of miscarriage; [address] Heartburn during in third trim ar[place], [place] [address] [place], [place] [phone] Allergies Active Allergy Reactions Severity Noted Date Comments Cefprozil Hives 12/12/2007 documented as of this encounter (statuses as of 06/26/2020) Medications Medication Sig Dispensed Refills Start Date End Date Status proMETHazine 25 mg Take 1 tablet by 30 tablet 0 01/02/2020 Active tabletIndications: mouth every 6 Nausea and vomiting (six) hours as during needed for Nausea and Vomiting (N/V). SERTraline (ZOLOFT) 50 Take 1 tablet by 30 tablet 4 01/20/2020 Active mg tabletIndications: mouth daily. Generalized anxiety disorder, Recurrent major depressive disorder, remission status unspecified documented as of this encounter (statuses as of 06/26/2020) Active Problems Problem Noted Date Heartburn in 06/26/2020 epistaxis 04/28/2020 Supervision of high-risk 03/02/2020 Multiparity 03/02/2020 History of miscarriage 03/02/2020 Generalized anxiety disorder 01/17/2020 Depression during 01/17/2020 Nausea and vomiting during 01/17/2020 History of cleft palate 04/23/2018 Overview: 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 Estimated Date of Delivery Comments Yes 08/28/2020 Based on Ultrasound documented as of this encounter (statuses as of 06/26/2020) Resolved Problems Problem Noted Date Resolved Date Rubella non-immune status, antepartum 01/03/2020 Overview: Address pp Supervision of high-risk 01/02/202001/16 Well woman exam 01/29/2019 01/02/2020 Contraceptive management 01/29/2019 01/02/2020 Routine follow-up 01/07/2019 01/29/2019 (spontaneous vaginal delivery) 12/14/201801/07 Single liveborn infant 12/14/2018 01/07/2019 Labor and delivery, indication for care 12/14/2018 01/07/2019 Premature uterine contractions 12/13/2018 9 H/O maternal Chlamydia infection, currently , third 11/22/2018 01/07/2019 trimester Supervision of high-risk 11/09/201801/07 38 weeks gestation of 10/13/2018 01/08/20 19 Threatened labor, third trimester 10/13/2018 12/10/2018 Vaginal bleeding in , first trimester 06/27/2018 12/10/2018 Chlamydia infection affecting 04/24/2018 12/10/2018 Overview: Clarissa at next visit and at 36 weeks Rubella non-immune status, antepartum 04/24/2018 Overview: Address pp 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 01/17/2020 History of miscarriage 04/23/2018 01/07/2019 History of maternal Chlamydia infection, currently , 04/23/2018 12/10/2018 third trimester Pain pelvic 04/27/2017 01/17/2020 Leukorrhea, not specified as infective 04/27/2017 0 10/27/2017 Screen for STD (sexually transmitted disease) 04/08/2016 10/27/2017 Well woman exam 04/08/2016 10/27/2017 Pain pelvic 04/08/2016 04/27/2017 Dysmenorrhea 04/08/2016 01/17/2020 Breast pain, left 08/30/2015 04/08/2016 Contraceptive management 08/30/2015 04/23/2018 History of spontaneous 08/03/2015 04/08/20 16 Overview: x1 Simple ovarian cyst 07/10/2015 08/30/2015 Urinary tract infection, site not specified 12/16/2014 08/03/2015 Abdominal pain, other specified site 12/16/2014 Surveillance of previously prescribed contraceptive pill 03/201508/03/2015 Encounter for routine gynecological examination 11/21/2014 08/03/2015 Overview: ICD10 Diagnosis Term 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 Need for HPV vaccination 11/21/2014 08/03/2015 Underweight 11/21/2014 04/08/2016 Retinoschisis, Macular 05/06/2013 11/21/2014 Cataract, Right Eye 05/06/2013 11/21/2014 documented as of this encounter (statuses as of 06/26/2020) Immunizations Name Administration Dates Next Due HPV 05/06/2015, 01/02/2015, 11/06/2014 HPV9 12/14/2018 (Deferred: - pt completed 3 HPV vaccines.) Influenza Virus Vaccine Quad .5 mL 01/02/2020 IM 6+ MO Influenza Virus Vaccine Quad IM 08/20/2018 Multi-dose 6+ MO MMR 01/02/2015 TDAP 10/18/2018 Td 10/16/2008 documented as of this encounter Social History Tobacco Use Types Packs/Day Years Used Date Never Smoker Smokeless Tobacco: Never Used Alcohol Use Drinks/Week oz/Week Comments No 0 Standard drinks or equivalent 0.0 Estimated Date of Delivery Comments Yes 08/28/2020 Based on Ultrasound Sex Assigned at Date Recorded Not on file COVID-19 Exposure Response Date Recorded In the last month, have you been in contact with No / Unsure 06/26/2020 8:57 AM CDT someone who was confirmed or suspected to have Coronavirus / COVID-19? documented as of this encounter Last Filed Vital Signs Vital Sign Reading Time Taken Comments Blood Pressure 110/73 06/26/2020 8:58 AM CDT Pulse 99 06/26/2020 8:58 AM CDT Temperature 36.1 C (97 F) 06/26/2020 8:58 AM CDT Respiratory Rate 16 06/26/2020 8:58 AM CDT Oxygen Saturation - - Inhaled Oxygen Concentration - - Weight 74.1 kg (163 lb 5 oz) 06/26/2020 8:58 AM CDT Height 162.6 cm (5' 4") 06/26/2020 8:58 AM CDT Body Mass Index 28.03 06/26/2020 8:58 AM CDT documented in this encounter Progress Notes Mally Henry, WHCNP - 06/26/2020 9:00 AM CDT Chief complaint: Chief Complaint Patient presents with Care HPI CC: Follow Up Visit Maricel Nur is a 24 year old, , /White female. Patient's last menstrual period was 11/30/2019 (approximate). She is 31w0d with an intrauterine . Her estimated date of delivery is 08/28/2020, by Ultrasound. She has no complaints today. She reports +FM and denies contractions, LOF and bleeding today. Histories OB History Para Term AB Living 3 1 1 0 1 1 SAB TAB Ectopic Multiple Live Births 1 0 0 0 1 # Outcome Date GA Lbr Dontae/2nd Weight Sex Delivery Anes PTL Lv 3 Current 2 Term 12/14/18 38w4d 6 lb 5.9 oz (2.89 kg) M VAGINAL EPI SHAY 1 SAB 06/25/15 Past Medical History: Diagnosis Date Abnormal uterine bleeding 2019 Anemia 2019 with previous Anxiety ongoing, not currently seeing MD not currently on medication. 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 Depression not currently seeing MD, controlled by patient Menstrual disorder 2019 Sensorineural hearing loss Simple ovarian cyst STD (sexually transmitted disease) chlamydia Stickler's syndrome Visual impairment Family History Problem Relation Age of Onset Cancer Mother ovarian, cervical, and breast Cancer Maternal Grandmother throat cancer Hypertension Maternal Grandmother No Significant Medical Problems Sister Cancer Maternal Aunt breast cancer No Significant Medical Problems Maternal Uncle Cancer Maternal Aunt colon cancer Family Status Relation Name Status Mo MGMo Alive Fa Alive Sis Alive MAunt Alive MUnc Alive PAunt Alive PUnc Alive MGFa MAunt Alive Past Surgical History: Procedure Laterality Date BMT HARV/TRANSPL 28D PKG CLEFT PALATE REPAIR FLUID/AIR EXCHANGE 04/28/2011 Surgeon:JEFFERY COLBY; Location:[facility] MYRINGOTOMY PARS PLANA VITRECTOMY 04/28/2011 Surgeon:JEFFERY COLBY; Location:[facility] TONGUE TO LIP SURGERY 2008 TRACHEOSTOMY Social History Socioeconomic History Marital status: Single Spouse name: Not on file Number of children: 0 Years of education: Not on file Highest education level: Not on file Occupational History Not on file Social Needs Financial resource strain: Not on file Food insecurity Worry: Not on file Inability: Not on file Transportation needs Medical: Not on file Non-medical: Not on file Tobacco Use Smoking status: Never Smoker Smokeless tobacco: Never Used Substance and Sexual Activity Alcohol use: No Alcohol/week: 0.0 standard drinks Drug use: No Sexual activity: Yes Partners: Male control/protection: None Comment: last sexual intercourse 12/29/2019 Lifestyle Physical activity Days per week: Not on file Minutes per session: Not on file Stress: Not on file Relationships Social connections Talks on phone: Not on file Gets together: Not on file Attends zoroastrianism service: Not on file Active member of club or organization: Not on file Attends meetings of clubs or organizations: Not on file Relationship status: Not on file Intimate partner violence Fear of current or ex partner: Not on file Emotionally abused: Not on file Physically abused: Not on file Forced sexual activity: Not on file Other Topics Concern Service Not Asked Blood Transfusions No Caffeine Concern Not Asked Occupational Exposure Not Asked Hobby Hazards Not Asked Sleep Concern Not Asked Stress Concern Not Asked Weight Concern Not Asked Special Diet Not Asked Back Care Not Asked Exercise Not Asked Bike Helmet Not Asked Seat Belt Not Asked Self-Exams Not Asked Social History Narrative No domestic violence or abuse. Pt feels safe at home. Pt lives with boyfriend and child. Pt has 2 dogs in the home. Jainism preference Mandaen. Social History Substance and Sexual Activity Sexual Activity Yes Partners: Male control/protection: None Comment: last sexual intercourse 12/29/2019 Labs No new labs and Routine Visit on 06/12/2020 Component Date Value HIV 1/2 Ag-Ab with Reflex 06/12/2020 Negative HIV Semi-quantitative 06/12/2020 0.13 Syphilis IgG/IgM 06/12/2020 Non-reactive POCT U SP GRAV 06/12/2020 . POCT PH U 06/12/2020 . POCT U LEUK EST 06/12/2020 . POCT U NIT 06/12/2020 . POCT U PROT 06/12/2020 Trace POCT U GLU 06/12/2020 Neg POCT U KETONE 06/12/2020 . POCT U UROBILI 06/12/2020 . POCT U BILI 06/12/2020 . POCT U BLD 06/12/2020 . Transmitter Operator Visit on 06/01/2020 Component Date Value GLUC 1 HR 06/01/2020 109* WBC 06/01/2020 14.86* RBC 06/01/2020 3.84* HGB 06/01/2020 10.8* HCT 06/01/2020 33.7* MCV 06/01/2020 87.8 MCH 06/01/2020 28.1 MCHC 06/01/2020 32.0 RDW-SD 06/01/2020 41.2 RDW-CV 06/01/2020 13.0 PLT 06/01/2020 356 MPV 06/01/2020 10.3 NRBC/100 WBC 06/01/2020 0.0 NRBC x10^3 06/01/2020 <0.01 GRAN MAT (NEUT) % 06/01/2020 74.4 IMM GRAN % 06/01/2020 1.10 LYMPH % 06/01/2020 15.1 MONO % 06/01/2020 7.2 EOS % 06/01/2020 1.7 BASO % 06/01/2020 0.5 GRAN MAT x10^3(ANC) 06/01/2020 11.04* IMM GRAN x10^3 06/01/2020 0.17* LYMPH x10^3 06/01/2020 2.24 MONO x10^3 06/01/2020 1.07* EOS x10^3 06/01/2020 0.26 BASO x10^3 06/01/2020 0.08* Routine Visit on 05/28/2020 Component Date Value POCT U SP GRAV 05/28/2020 . POCT PH U 05/28/2020 . POCT U LEUK EST 05/28/2020 . POCT U NIT 05/28/2020 . POCT U PROT 05/28/2020 Trace POCT U GLU 05/28/2020 Neg POCT U KETONE 05/28/2020 . POCT U UROBILI 05/28/2020 . POCT U BILI 05/28/2020 . POCT U BLD 05/28/2020 . Routine Visit on 04/28/2020 Component Date Value POCT U SP GRAV 04/28/2020 . POCT PH U 04/28/2020 . POCT U LEUK EST 04/28/2020 . POCT U NIT 04/28/2020 . POCT U PROT 04/28/2020 Trace POCT U GLU 04/28/2020 Neg POCT U KETONE 04/28/2020 . POCT U UROBILI 04/28/2020 . POCT U BILI 04/28/2020 . POCT U BLD 04/28/2020 . Routine Visit on 03/31/2020 Component Date Value POCT U SP GRAV 03/31/2020 . POCT PH U 03/31/2020 . POCT U LEUK EST 03/31/2020 . POCT U NIT 03/31/2020 . POCT U PROT 03/31/2020 trace POCT U GLU 03/31/2020 negative POCT U KETONE 03/31/2020 . POCT U UROBILI 03/31/2020 . POCT U BILI 03/31/2020 . POCT U BLD 03/31/2020 . RACE 03/31/2020 WEIGHT 03/31/2020 149.5625 GEST. AGE 0603/31[birth year]2020 18,4 INS. DEP 03/31/2020 No US DATE 03/31/2020201933443404 METHOD 03/31/2020 US MULT GEST 03/31/2020 No NTD HX 03/31/2020 No INITAL OR REPEAT 03/31/2020 Initial Testing SMOKER 03/31/2020 No INHIBIN 03/31/2020 127.2 AFP-MS 03/31/2020 45.5 ESTRIOL 03/31/2020 2.21 BHCG DOWNS 03/31/2020 13,654.0 AFP-MS MoM 03/31/2020 1.05 BHCG MoM 03/31/2020 0.54 INHIBIN MoM 03/31/2020 0.79 E3 MoM 03/31/2020 1.35 EQ AGE RSK 03/31/2020 < 15.0 DS APR 03/31/2020 1:1020 DS INTERP 03/31/2020 See Note DS RSK 03/31/2020 < 1:61064 DS SCRN 03/31/2020 Negative TRISOMY 18 03/31/2020 See Note ES RSK 03/31/2020 1:68436 ES SCRN 03/31/2020 Negative OSB INTERP 03/31/2020 See Note OSB RSK 03/31/2020 1:20035 OSB SCRN 03/31/2020 Negative INTERPRETATION 03/31/2020 N Radiology No new radiology. Allergies Maricel is allergic to cefzil [cefprozil]. Medications Maricel has a current medication list which includes the following prescription(s): sertraline and promethazine. Review of Systems Constitutional: Negative. HENT: Negative. Eyes: Negative. Respiratory: Negative. Breasts: Negative. Cardiovascular: Negative. Gastrointestinal: Negative. Genitourinary: Negative. Musculoskeletal: Negative. Skin: Negative. Neurological: Negative. Psychiatric/Behavioral: Negative. Endocrine: Endocrine negative BP 110/73 (BP Location: Right arm, Patient Position: Sitting, BP CUFF SIZE: Adult Medium) | Pulse 99 | Temp 36.1 C (97 F) (Oral) | Resp 16 | Ht 5' 4" (1.626 m) | Wt 163 lb 5 oz (74.1 kg) | LMP 11/30/2019 (Approximate) | BMI 28.03 kg/m Pregravid BMI: Could not be calculated Physical Exam Vitals reviewed. Constitutional: She is oriented to person, place, and time. She appears well- developed and well-nourished. Cardiovascular: Regular rate and rhythm. No peripheral edema present. Pulmonary/Chest: Normal inspiratory effort. Abdominal: Abdomen is soft. No mass palpated. No tenderness present. There is no hepatosplenomegaly,splenomegaly or hepatomegaly. There is no rigidity and no guarding. No hernia palpated or inspected. Neuro/Psychiatric: She has a normal mood and affect. She is oriented to person, place, and time. Skin: Skin normal. PHYSICAL: General Exam: Neurological: Normal Abdomen: Normal gravid Extremities: Normal Assessment/Plan Return to clinic in 2 weeks. Denies zika virus risk, signs and symptoms such as fever,rash,joint pain, conjunctivitis (red eyes),muscle pain, headaches; outside [place] travel to areas affected by zika, and FOB exposure to zika. Educated on use of mosquito repellent. Supervision of high risk , antepartum (primary encounter diagnosis) Multiparity History of miscarriage Comment: routine , patient reports she was seen at [facility] on this past Monday during her work shift, she reports she was taken because she was experiencing contractions, she states she was given two shots of medication to help stop the contractions, she reports she is doing well today. Plan: POCT URINALYSIS W SPECIFIC GRAVITY Heartburn Comment: reports Plan: safe meds list discussed, patient verbalized understanding This visit did not involve counseling and coordination that comprised more than 50% of the visit time. documented in this encounter Plan of Treatment Health Maintenance Due Date Last Done Comments INFLUENZA VACCINE (#1) 2020 01/02/2020, 08/20/2018 Depression Screening 06/26/2021 06/26/2020 PAP SMEAR 01/29/2022 01/29/2019, 04/08/2016 DTaP,Tdap,and Td Vaccines (3 10/18/2028 10/18/2018, - Td) 10/16/2008 HPV VACCINES Completed 05/06/2015, 01/02/2015, 11/06/2014 PNEUMOCOCCAL 0-64 YEARS Aged Out No longe r eligible based COMBINED SERIES on patient's age to complete this to [facility] documented as of this encounter Procedures Procedure Name Priority Date/Time Associated Diagnosis Comme nts POCT URINALYSIS Routine 06/26/2020 9:01 AM Supervision of [facility] Results for this CDT risk , procedure ar e in antepartum the results section. documented in this encounter Results POCT URINALYSIS W SPECIFIC GRAVITY (06/26/2020 9:01 AM CDT) Pathologist Sig nature POCT U SP GRAV . 1.005 - 1.025 mg/dl POCT PH U . 5 - 8 mg/dl POCT U LEUK EST . Negative - Negative POCT U NIT . Negative - Negative POCT U PROT Trace Negative - Negative POCT U GLU Neg Negative - Negative POCT U KETONE . Negative - Negative POCT U UROBILI . 0.2 - 1 mg/dl POCT U BILI . Negative - Negative POCT U BLD . Negative - Negative POCT U COLOR POCT U APPEAR Specimen Urine - URINE, CLEAN CATCH documented in this encounter Visit Diagnoses Diagnosis Supervision of high risk , ante - Primary Multiparity History of miscarriage Personal history of other genital system and obstetric disorders Heartburn during in third trim arron documented in this encounter Insurance Payer Benefit Plan / Subscriber ID Effective Phone Address T e Group [facility] [id number] 2020-[address] Medic aid HEALTH CHOICE - HEALTH [place] [id number] 1 MANAGED MEDICAID [place], [place] [phone] [id number] documented as of this encounter Advance Directives Name Relationship Healthcare Agent Relationship Co mmunication Isidra Forbes Grandparent Health Care Agent Donovan Conroy Aunt [facility] Care [phone] Agent (Mobile)
--- OUTSIDE RECORDS SUMMARY | 2020-09-21 06:51 | XMS REPORT | Summary of Care ---
:1995 Author Organization [facility] Address [address] [place] [address] Care Team Providers Name Role Phone Tonie Henry [facility] Primary Care Provider Reason for Visit Reason Comments ROUTINE VISIT Encounter Details Date Type Department Care Team Description 07/10/2020 [facility]ine [facility]- [place], [place] vision of high risk , antepartum (Primary Dx); Visit [place] [facility]; [address] Histor y of miscarriage; Street ST Viral disease exposure [facility] A [address] [place], [place] [phone] [address] Allergies Active Allergy Reactions Severity Noted Date Comments Cefprozil Hives 12/12/2007 documented as of this encounter (statuses as of 07/10/2020) Medications Medication Sig Dispensed Refills Start Date [...] as of this encounter (statuses as of 07/10/2020) Active Problems Problem Noted Date Heartburn in 06/26/2020 epistaxis 04/28/2020 Supervision of high-risk 03/02/2020 Multiparity 03/02/2020 History of miscarriage 03/02/2020 Generalized anxiety disorder 01/17/2020 Depression during 01/17/2020 Nausea and vomiting during 01/17/2020 History of cleft palate 04/23/2018 Overview: 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 Estimated Date of Delivery Comments Yes 08/28/2020 Based on Ultrasound documented as of this encounter (statuses as of 07/10/2020) Resolved Problems Problem Noted Date Resolved Date Rubella non-immune status, antepartum 01/03/2020 Overview: Address pp Supervision of high-risk 01/02/202001/16 Well woman exam 01/29/2019 01/02/2020 Contraceptive management 01/29/2019 01/02/2020 Routine follow-up 01/07/2019 01/29/2019 (spontaneous vaginal delivery) 12/14/201801/07 Single liveborn 12/14/2018 01/07/2019 Labor and delivery, indication for [...] examination 11/21/2014 08/03/2015 Overview: ICD10 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 documented as of this encounter Last Filed Vital Signs Vital Sign Reading Time Taken Comments Blood Pressure 115/69 07/10/2020 11:09 AM CDT Pulse 81 07/10/2020 11:09 AM CDT Temperature 36.4 C (97.5 F) 07/10/2020 11:09 AM CDT Respiratory Rate 16 07/10/2020 11:09 AM CDT Oxygen Saturation - - Inhaled Oxygen Concentration - - Weight 76.9 kg (169 lb 8 oz) 07/10/2020 11:09 AM CDT Height 165.1 cm (5' 5") 07/10/2020 11:09 AM CDT Body Mass Index 28.21 07/10/2020 11:09 AM CDT documented in this encounter Progress Notes Mally Henry, WHCNP - 07/10/2020 11:00 AM CDT Chief complaint: Chief Complaint Patient presents with ROUTINE VISIT HPI CC: Follow Up Visit Maricel Nur is a 24 year old, , /White female. Patient's last menstrual period was 11/30/2019 (approximate). She is 33w0d with an intrauterine . Her estimated date of delivery is 08/28/2020, by Ultrasound. She has no complaints today. She reports +FM and denies contractions, LOF and bleeding today. OB History Para Term AB Living 3 1 1 0 1 1 SAB TAB Ectopic Multiple Live Births 1 0 0 0 1 # Outcome Date GA Lbr Dontae/2nd Weight Sex Delivery Anes PTL Lv 3 Current 2 Term 12/14/18 38w4d 6 lb 5.9 oz (2.89 kg) M VAGINAL EPI SHAY 1 SAB 06/25/15 Histories OB History Para Term AB Living [...] file Gets together: Not on file Attends bahai service: Not on file Active member of [...] Pt has 2 dogs in the home. Congregation preference Yazidism. Social History Substance and Sexual Activity Sexual Activity Yes Partners: Male control/protection: None Comment: last sexual intercourse 12/29/2019 Labs No new labs, Labs are pending. and Routine Visit on 06/26/2020 Component Date Value POCT U SP GRAV 06/26/2020 . POCT PH U 06/26/2020 . POCT U LEUK EST 06/26/2020 . POCT U NIT 06/26/2020 . POCT U PROT 06/26/2020 Trace POCT U GLU 06/26/2020 Neg POCT U KETONE 06/26/2020 . POCT U UROBILI 06/26/2020 . POCT U BILI 06/26/2020 . POCT U BLD 06/26/2020 . Routine Visit on 06/12/2020 Component Date Value [...] 06/12/2020 . POCT U BLD 06/12/2020 . 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 POCT U BLD 04/28/2020 . Radiology No new radiology. Allergies Maricel is allergic to cefzil [cefprozil]. Medications Maricel has a current medication list which includes the following prescription(s): sertraline and promethazine. Review of Systems Constitutional: Negative. HENT: Negative. Eyes: Negative. Respiratory: Negative. Breasts: Negative. Cardiovascular: Negative. Gastrointestinal: Negative. Genitourinary: Negative. Musculoskeletal: Negative. Skin: Negative. Neurological: Negative. Psychiatric/Behavioral: Negative. Endocrine: Endocrine negative BP 115/69 (BP Location: Right arm, Patient Position: Sitting, BP CUFF SIZE: Adult Medium) | Pulse 81 | Temp 36.4 C (97.5 F) (Oral) | Resp 16 | Ht 5' 5" (1.651 m) | Wt 169 lb 8 oz (76.9 kg) | LMP 11/30/2019 (Approximate) | BMI 28.21 kg/m Pregravid BMI: Could not be calculated Physical Exam PHYSICAL: General Exam: Neurological: Normal Abdomen: Normal gravid Extremities: Normal Pelvic Exam: Uterus: 34 Weeks Assessment/Plan Return to clinic in 2 weeks. Denies zika virus risk, signs and symptoms such as fever,rash,joint pain, conjunctivitis (red eyes),muscle pain, headaches; outside [place] travel to areas affected by zika, and FOB exposure to zika. Educated on use of mosquito repellent. Supervision of high risk , antepartum (primary encounter diagnosis) Multiparity History of miscarriage Comment: routine Plan: POCT URINALYSIS W SPECIFIC GRAVITY, CBC WITH DIFF, GC & CHLAMYDIA AMPLIFIED ASSAY, GROUP B STREPTOCOCCUS BY PCR Viral disease exposure Comment: as ordered future Plan: SARS-COV-2 IGG This visit did not involve counseling and coordination that comprised more than 50% of the visit time. FRANCHESKA Novak 07/10/2020 11:37 AM documented in this encounter Plan of Treatment Name Type Priority Associated Diagnoses Order S chedule CBC WITH DIFF LAB Routine Supervision of high risk Ex pected: 07/10/2020, , antepartum s: 07/10/2021 GC & CHLAMYDIA AMPLIFIED LAB Routine Supervision of h igh risk Expected: 07/10/2020, ASSAY , antepartum s: 07/10/2021 GROUP B STREPTOCOCCUS BY LAB Routine Supervision of h igh risk Expected: 07/10/2020, PCR , antepartum s: 07/10/2021 SARS-COV-2 IGG LAB Routine Viral disease exposure Exp ected: 07/10/2020, Expires: 2020 Health Maintenance Due Date Last Done Comments INFLUENZA VACCINE (#1) 2021 01/02/2020, Postponed from 06/16/2020 08/20/2018 (Refused) Depression Screening 06/26/2021 06/26/2020 PAP SMEAR 01/29/2022 01/29/2019, 04/08/2016 DTaP,Tdap,and Td Vaccines (3 10/18/2028 10/18/2018, - Td) 10/16/2008 HPV VACCINES Completed 05/06/2015, 01/02/2015, 11/06/2014 PNEUMOCOCCAL 0-64 YEARS Aged Out No longe r eligible based COMBINED SERIES on patient's age to complete this to [facility] documented as of this encounter Procedures Procedure Name Priority Date/Time Associated Diagnosis Comme nts POCT URINALYSIS Routine 07/10/2020 Supervision of high risk Results for this , antepartum proced ure are in the results section . documented in this encounter Results POCT URINALYSIS W SPECIFIC GRAVITY (07/10/2020) Pathologist Sig nature POCT U SP GRAV . 1.005 - 1.025 mg/dl POCT PH U . 5 - 8 mg/dl POCT U LEUK EST . Negative - Negative POCT U NIT . Negative - Negative POCT U PROT trace Negative - Negative POCT U GLU normal Negative - Negative POCT U KETONE . [...] of other genital system and obstetric disorders Viral disease exposure Contact with or exposure to other viral diseases documented in this encounter Insurance Payer Benefit Plan / Subscriber ID Effective Phone Address [facility] [id number] 2020-Prese P[address]O. BOX Medic aid HEALTH CHOICE - HEALTH CHOICE nt [id number] 1 MANAGED MEDICAID [place], [place]ID [phone] [id number] 1 documented as of this encounter Advance Directives Name Relationship Healthcare Agent Relationship Co mmunication Isidra Forbes Grandparent Health Care Agent Donovan Conroy Aunt First [facility] [phone] Agent (Mobile)
--- OUTSIDE RECORDS SUMMARY | 2020-09-21 06:51 | XMS REPORT | Summary of Care ---
:1995 Author Organization [facility] Address [address] [place] [address] Care Team Providers Name Role Phone Tonie Henry [facility] Primary Care Provider Reason for Visit Reason Comments ROUTINE VISIT Encounter Details Date Type Department Care Team Description 07/10/2020 Routine [facility]- Carl, [place] vision of high risk , antepartum (Primary Dx); Visit [place] [facility]; [address] Histor y of miscarriage; Street ST Viral disease exposure [facility] A [address] [place], [place] [phone] [address] Allergies Active Allergy Reactions Severity Noted [...] examination 11/21/2014 08/03/2015 Overview: ICD10 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 Synagogue preference [employer]ism. Social History Substance and Sexual Activity Sexual [...] 06/12/2020 . POCT U BLD 06/12/2020 . 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 documented as of this encounter Procedures [...] / Subscriber ID Effective Phone Address T [facility] [id number] 2020-Prese P.O. BOX Medic aid HEALTH CHOICE - HEALTH CHOICE nt [phone] 1 MANAGED MEDICAID [place] [phone] [id number] 1 documented as of this encounter Advance Directives Name Relationship Healthcare Agent Relationship Co mmunication Isidra Andrei Grandparent Health Care Agent Donovan Conroy Aunt First [facility] Care Agent (Mobile)
--- OUTSIDE RECORDS SUMMARY | 2020-09-21 06:51 | XMS REPORT | Summary of Care ---
:1995 Author Organization [facility] - Health Address [address] [place] [address] Care Team Providers Name Role Phone Tonie Henry Primary Care Provider Encounter Details Date Type Department Care Team Description 06/12/2020 Orders Only [facility] Doctor Unassigned, No [address] [facility] [place] [address] [address] [place] [address] Allergies Active Allergy Reactions Severity Noted Date Comments Cefprozil Hives 12/12/2007 documented as of this encounter (statuses as of 07/02/2020) Medications Medication Sig Dispensed Refills Start Date [...] as of this encounter (statuses as of 07/02/2020) Active Problems Problem Noted Date Heartburn in 06/26/2020 epistaxis 04/28/2020 Supervision of high-risk 03/02/2020 Multiparity 03/02/2020 History of miscarriage 03/02/2020 Generalized anxiety disorder 01/17/2020 Depression during 01/17/2020 Nausea and vomiting during 01/17/2020 History of cleft palate 04/23/2018 Overview: 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 Estimated Date of Delivery Comments Yes 08/28/2020 Based on Ultrasound documented as of this encounter (statuses as of 07/02/2020) Resolved Problems Problem Noted Date Resolved Date [...] examination 11/21/2014 08/03/2015 Overview: ICD10 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 Need for HPV vaccination 11/21/2014 08/03/2015 Underweight 11/21/2014 04/08/2016 Retinoschisis, Macular 05/06/2013 11/21/2014 Cataract, Right Eye 05/06/2013 11/21/2014 documented as of this encounter (statuses as of 07/02/2020) Immunizations Name Administration Dates Next Due HPV [...] of this encounter Last Filed Vital Signs Not on filedocumented in this encounter Plan of Treatment Date Type Specialty Care Team Description 07/10/2020 Routine Visit OB Satellites Cassandra Henry, CNP [address] [place], [place] [address] [phone] Health Maintenance Due Date Last Done Comments INFLUENZA VACCINE (#1) 2020 01/02/2020, 08/20/2018 Depression Screening 06/26/2021 06/26/2020 PAP SMEAR 01/29/2022 01/29/2019, 04/08/2016 DTaP,Tdap,and Td Vaccines (3 10/18/2028 10/18/2018, - Td) 10/16/2008 HPV VACCINES Completed 05/06/2015, 01/02/2015, 11/06/2014 PNEUMOCOCCAL 0-64 YEARS Aged Out No longe r eligible based COMBINED SERIES on patient's age to complete this to pic documented as of this encounter Procedures Procedure Name Priority Date/Time Associated Diagnosis Comme nts STERILIZATION CONSENT Routine 06/12/2020 12:01 AM FORM CDT documented in this encounter Results Not on filedocumented in this encounter Insurance Payer Benefit Plan / Subscriber ID Effective Phone Address T [facility] [id number] 2020-Prese P.O. BOX Medic aid HEALTH CHOICE - HEALTH CHOICE nt [id number] 1 MANAGED MEDICAID [place], [place] [phone] documented as of this encounter Advance Directives Name Relationship Healthcare Agent Relationship Co mmunication Isidra Forbes Grandparent Health Care Agent Donovan Rafiq Aunt First Alternate Health Care Agent (Mobile)
--- OUTSIDE RECORDS SUMMARY | 2020-09-21 06:52 | XMS REPORT | Summary of Care ---
:1995 Author Organization [facility] Address [address] [place] [address] Care Team Providers Name Role Phone Tonie Henry [facility] Primary Care Provider Reason for Visit Reason Comments ROUTINE VISIT Encounter Details Date Type Department Care Team Description 07/10/2020 Routine [facility]- Carl, [place] vision of high risk , antepartum (Primary Dx); Visit [place] [facility]; [address] Histor y of miscarriage; Street ST Viral disease exposure [facility] A [address] [place], [place] [phone] [address] Allergies Active Allergy Reactions Severity Noted [...] examination 11/21/2014 08/03/2015 Overview: ICD10 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 Quaker preference Synagogue. Social History Substance and Sexual Activity Sexual [...] 06/12/2020 . POCT U BLD 06/12/2020 . 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 BOX Medic aid HEALTH CHOICE - HEALTH CHOICE nt [phone] 1 MANAGED MEDICAID [place], [place] [phone] 1 documented as of this encounter Advance Directives Name Relationship Healthcare Agent Relationship Co mmunication Isidra Andrei Grandparent Health Care Agent Donovan Conroy Aunt First [facility] [phone] Agent (Mobile)
--- OUTSIDE RECORDS SUMMARY | 2020-09-21 06:52 | XMS REPORT | Summary of Care ---
:1995 Author Organization [facility] Address [address] [place] [address] Care Team Providers Name Role Phone Tonie Henry Primary Care Provider Reason for Visit Reason Comments Rx Concern/Question questions regarding delivery Encounter Details Date Type Department Care Team Description 07/22/2020 Telephone [facility]- Mally Henry Rx Concern/Question FRANCHESKA Cole (questions regarding [address] delivery) [place], [place] [phone] Allergies Active Allergy Reactions Severity Noted Date Comments Cefprozil Hives 12/12/2007 documented as of this encounter (statuses as of 07/22/2020) Medications Medication Sig Dispensed Refills Start Date [...] as of this encounter (statuses as of 07/22/2020) Active Problems Problem Noted Date Heartburn in 06/26/2020 epistaxis 04/28/2020 Supervision of high-risk 03/02/2020 Multiparity 03/02/2020 History of miscarriage 03/02/2020 Generalized anxiety disorder 01/17/2020 Depression during 01/17/2020 Nausea and vomiting during 01/17/2020 History of cleft palate 04/23/2018 Overview: 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 Estimated Date of Delivery Comments Yes 08/28/2020 Based on Ultrasound documented as of this encounter (statuses as of 07/22/2020) Resolved Problems Problem Noted Date Resolved Date [...] examination 11/21/2014 08/03/2015 Overview: ICD10 Diagnosis Term 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 Verbalized understanding. THOMPSON ALANIZ RN 07/22/2020 11:57 AM Telephone Encounter - Pavithra Hernández - 07/22/2020 11:53 AM Adam Marcello Nur is a 24 year old female Patient returning nurse call. elephone Encounter - Thompson Alaniz RN - 07/22/2020 11:41 AM CDTCalled patient, no answer. Left vm. THOMPSON ALANIZ RN 07/22/2020 11:41 AM Telephone Encounter - Monae Larson - 07/22/2020 10:21 AM Adam Marcello Nur is a 24 year old female Patient requesting to speak with nurse regarding questions for her delivery schedule induction on 08/28/20. Please call patient [phone] (home) documented in this encounter Plan of Treatment Date Type Specialty Care Team Description 07/24/2020 Routine [facility]ell[facility] [address], [place] [address] [phone] Health Maintenance Due Date Last Done Comments [...] to pic documented as of this encounter Results Not on filedocumented in this encounter Insurance Payer Benefit Plan / Subscriber ID Effective Phone Address T [facility] [id number] 2020-Wm P.OMira BOX Medic aid HEALTH CHOICE - HEALTH CHOICE nt [id number] 1 MANAGED MEDICAID [place], [place] [phone] documented as of this encounter Advance Directives Name Relationship Healthcare Agent Relationship Co mmunication Isidra Forbes Grandparent Health Care Agent Donovan Conroy Aunt First [facility] Care Agent (Mobile)
--- OUTSIDE RECORDS SUMMARY | 2020-09-21 06:52 | XMS REPORT | Summary of Care ---
:[address] [facility] Address [address] [place] [address] Care Team Providers Name Role Phone Tonie Henry [facility] Primary Care Provider Reason for Visit Reason Comments ROUTINE VISIT Encounter Details Date Type Department Care Team Description 07/10/2020 Routine [facility]- Carl, [place] vision of high risk , antepartum (Primary Dx); Visit [place] [facility]; [address] Histor y of miscarriage; Street ST Viral disease exposure [facility] A [address] [place], [place] [phone] [address] Allergies Active Allergy Reactions Severity Noted [...] examination 11/21/2014 08/03/2015 Overview: ICD10 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 Mor[employer] preference Synagogue. Social History Substance and Sexual [...] 06/12/2020 . POCT U BLD 06/12/2020 . 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 BOX Medic aid HEALTH CHOICE - HEALTH CHOICE nt [id number] 1 MANAGED MEDICAID [place] [phone] 1 documented as of this encounter Advance Directives Name Relationship Healthcare Agent Relationship Co mmunication Isidra Andrei Grandparent Health Care Agent Donovan Conroy Aunt First [facility] Care [phone] Agent (Mobile)
--- OUTSIDE RECORDS SUMMARY | 2020-09-21 06:53 | XMS REPORT | Summary of Care ---
:1995 Author Organization [facility] Address [address] [place] [address] Care Team Providers Name Role Phone Tonie Henry [facility] Primary Care Provider Reason for Visit Reason Comments Anemia Encounter Details Date Type Department Care Team Description 08/03/2020 [facility], Anemia [address] [place] [address] [phone] [place], [place] [address] Allergies Active Allergy Reactions Severity Noted Date Comments Cefprozil Hives 12/12/2007 documented as of this encounter (statuses as of 08/04/2020) Medications Medication Sig Dispensed Refills Start Date [...] Recurrent major depressive disorder, remission status unspecified ascorbic acid, vitamin Take 1 tablet by 90 tablet 2 08/03/2020 Active C, 500 mg mouth 3 (three) tabletIndications: times daily. Anemia of mother in , antepartum ferrous sulfate 325 mg Take 1 tablet by 60 tablet 3 08/03/2020 Active (65 mg iron) mouth 2 (two) tabletIndications: times daily. 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 Estimated Date of Delivery Comments Yes 08/28/2020 Based on Ultrasound documented as of this encounter (statuses as of 08/04/2020) Resolved Problems Problem Noted Date Resolved Date [...] examination 11/21/2014 08/03/2015 Overview: ICD10 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 documented as of this encounter Last Filed Vital Signs Not on filedocumented in this encounter Miscellaneous Notes Telephone Encounter - Carmen Light LVN - 08/04/2020 11:47 AM CDTMshannaian Nur is a 24 year old female Informed of results and new orders, verbalized understanding. elephone Encounter - Mally Henry WHCNP - 08/03/2020 4:45 PM CDTPlease notify the patient she is anemic iron and vitamin c have been sent to her pharmacy on file. She should continue taking her pnv. FRANCHESKA Novak 08/03/2020 4:46 PM documented in this encounter Plan of Treatment Date Type Specialty Care Team Description 08/06/2020 Routine Visit [facility]ell[facility] Cassandra Henry WHCNP [address] [place] [place], [place] [address] [phone] Health Maintenance Due Date Last Done Comments [...] Results Not on filedocumented in this encounter Visit Diagnoses Diagnosis Anemia of mother in , antepartu m - Primary Anemia, antepartum documented in this encounter Insurance Payer Benefit Plan / Subscriber ID Effective Phone Address T [facility] [id number] 2020-Wm [address] Medic aid HEALTH CHOICE - HEALTH CHOICE nt [id number] 1 MANAGED MEDICAID [place], [place] MED[place] [phone] documented as of this encounter Advance Directives Name Relationship Healthcare Agent Relationship Co mmunication Isidra Forbes Grandparent Health Care Agent Donovan Conroy Aunt [facility] Agent (Mobile)
--- OUTSIDE RECORDS SUMMARY | 2020-09-21 06:53 | XMS REPORT | Summary of Care ---
:1995 Author Organization [facility] Address [address] [place] [address] Care Team Providers Name Role Phone Tonie Henry [facility] Primary Care Provider Reason for Visit Reason Comments Anemia Encounter Details Date Type Department Care Team Description [facility] [address] [place] [address] [address] [phone] [place], [place] [address] Allergies Active Allergy Reactions Severity Noted Date Comments Cefprozil Hives 12/12/2007 documented as of this encounter (statuses as of 08/03/2020) Medications Medication Sig Dispensed Refills Start Date [...] as of this encounter (statuses as of 08/03/2020) Active Problems Problem Noted Date Anemia of [...] as of this encounter (statuses as of 08/03/2020) Resolved Problems Problem Noted Date Resolved Date [...] examination 11/21/2014 08/03/2015 Overview: ICD10 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 She should continue taking her pnv. FRANCHESKA Novak 08/03/2020 4:46 PM documented in this encounter Plan of Treatment Date Type Specialty Care Team Description 08/06/2020 Routine Visit [facility] Satellites Cassandra Henry WHCNP [address] [place], [place] [address] [phone] Health Maintenance Due Date Last Done Comments INFLUENZA VACCINE (#1) 2021 01/02/2020, Postponed from 06/16/2020 08/20/2018 (Refused) Depression Screening 06/26/2021 06/26/2020 PAP SMEAR 01/29/2022 01/29/2019, 04/08/2016 DTaP,Tdap,and Td Vaccines (3 10/18/2028 10/18/2018, - Td) 10/16/2008 HPV VACCINES Completed 05/06/2015, 01/02/2015, 11/06/2014 PNEUMOCOCCAL 0-64 YEARS Aged Out No longe r eligible based COMBINED SERIES on patient's age to complete this to [facility] documented as of this encounter Results Not on filedocumented in this encounter Visit Diagnoses Diagnosis Anemia of mother in , antepartu m - Primary Anemia, antepartum documented in this encounter Insurance Payer Benefit Plan / Subscriber ID Effective Phone Address T [facility] [id number] 2020-Prese [address] Medic aid HEALTH CHOICE - HEALTH CHOICE nt [id number] 1 MANAGED MEDICAID [place], [place] [phone] documented as of this encounter Advance Directives Name Relationship Healthcare Agent Relationship Co mmunication Isidra Forbes Grandparent Health Care Agent Donovan Conroy Aunt [facility] [phone] Agent (Mobile)
--- OUTSIDE RECORDS SUMMARY | 2020-09-21 06:53 | XMS REPORT | Summary of Care ---
:1995 Author Organization [facility] Address [address] [place] [address] Care Team Providers Name Role Phone Tonie Henry RAJEEV Primary Care Provider Reason for Visit Reason Comments ROUTINE VISIT Encounter Details Date Type Department Care Team Description 07/31/2020 Routine [facility]- Carl, [place] vision of high risk , antepartum (Primary Dx); Visit [place] [facility] Viral disease exposure; [address] Multip arity; Street History of miscarriage; [place], [place] History of cleft palate; [address] [place], [place] Depression during in third trimester [phone] Allergies Active Allergy Reactions Severity Noted Date Comments Cefprozil Hives 12/12/2007 documented as of this encounter (statuses as of 07/31/2020) Medications Medication Sig Dispensed Refills Start Date [...] as of this encounter (statuses as of 07/31/2020) Active Problems Problem Noted Date Heartburn in 06/26/2020 epistaxis 04/28/2020 Supervision of high-risk 03/02/2020 Multiparity 03/02/2020 History of miscarriage 03/02/2020 Generalized anxiety disorder 01/17/2020 Depression during 01/17/2020 Nausea and vomiting during 01/17/2020 History of cleft palate 04/23/2018 Overview: 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 Estimated Date of Delivery Comments Yes 08/28/2020 Based on Ultrasound documented as of this encounter (statuses as of 07/31/2020) Resolved Problems Problem Noted Date Resolved Date [...] examination 11/21/2014 08/03/2015 Overview: ICD10 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 Need for HPV vaccination 11/21/2014 08/03/2015 Underweight 11/21/2014 04/08/2016 Retinoschisis, Macular 05/06/2013 11/21/2014 Cataract, Right Eye 05/06/2013 11/21/2014 documented as of this encounter (statuses as of 07/31/2020) Immunizations Name Administration Dates Next Due HPV [...] Sign Reading Time Taken Comments Blood Pressure 108/68 07/31/2020 1:04 PM CDT Pulse 81 07/31/2020 1:04 PM CDT Temperature 37 C (98.6 F) 07/31/2020 1:04 PM CDT Respiratory Rate 16 07/31/2020 1:04 PM CDT Oxygen Saturation - - Inhaled Oxygen Concentration - - Weight 80.1 kg (176 lb 9.6 oz) 07/31/2020 1:04 PM CDT Height 165.1 cm (5' 5") 07/31/2020 1:04 PM CDT Body Mass Index 29.39 07/31/2020 1:04 PM CDT documented in this encounter Progress Notes Mally Henry, WHSHANNANP - 07/31/2020 1:00 PM CDT Chief complaint: Chief Complaint Patient presents with ROUTINE VISIT HPI CC: Follow Up Visit Maricel Nur is a 24 year old, , /White female. Patient's last menstrual period was 11/30/2019 (approximate). She is 36w0d with an intrauterine . Her estimated date [...] file Gets together: Not on file Attends gnosticism service: Not on file Active member of [...] Pt has 2 dogs in the home. [employer] preference Mos[employer]. Social History Substance and Sexual Activity Sexual Activity Yes Partners: Male control/protection: None Comment: last sexual intercourse 12/29/2019 Labs No new labs and Routine Visit on 07/24/2020 Component Date Value POCT U SP GRAV 07/24/2020 . POCT PH U 07/24/2020 . POCT U LEUK EST 07/24/2020 . POCT U NIT 07/24/2020 . POCT U PROT 07/24/2020 Trace POCT U GLU 07/24/2020 Neg POCT U KETONE 07/24/2020 . POCT U UROBILI 07/24/2020 . POCT U BILI 07/24/2020 . POCT U BLD 07/24/2020 . Routine Visit on 07/10/2020 Component Date Value POCT U SP GRAV 07/10/2020 . POCT PH U 07/10/2020 . POCT U LEUK EST 07/10/2020 . POCT U NIT 07/10/2020 . POCT U PROT 07/10/2020 trace POCT U GLU 07/10/2020 normal POCT U KETONE 07/10/2020 . POCT U UROBILI 07/10/2020 . POCT U BILI 07/10/2020 . POCT U BLD 07/10/2020 . Routine Visit on 06/26/2020 Component Date Value [...] 06/12/2020 . POCT U BLD 06/12/2020 . Resident Physician In Radiology Visit on 06/01/2020 Component Date Value GLUC [...] 05/28/2020 . POCT U BLD 05/28/2020 . Radiology No new radiology. Allergies Maricel is allergic to cefzil [cefprozil]. Medications Maricel has a current medication list which includes the following prescription(s): sertraline and promethazine. Review of Systems Constitutional: Negative. HENT: Negative. Eyes: Negative. Respiratory: Negative. Breasts: Negative. Cardiovascular: Negative. Gastrointestinal: Negative. Genitourinary: Negative. Musculoskeletal: Negative. Skin: Negative. Neurological: Negative. Psychiatric/Behavioral: Negative. Endocrine: Endocrine negative BP 108/68 (BP Location: Right arm, Patient Position: Sitting, BP CUFF SIZE: Adult Medium) | Pulse 81 | Temp 37 C (98.6 F) (Oral) | Resp 16 | Ht 5' 5" (1.651 m) | Wt 176 lb 9.6 oz (80.1 kg) | LMP 11/30/2019 (Approximate) | BMI 29.39 kg/m Pregravid BMI: Could not be calculated Physical Exam PHYSICAL: General Exam: Neurological: Normal Abdomen: Normal gravid Extremities: Normal Pelvic Exam: Uterus: 36 Weeks Assessment/Plan Return to clinic in 1 weeks. Denies zika virus risk, signs and symptoms such as fever,rash,joint pain, conjunctivitis (red eyes),muscle pain, headaches; outside [place] travel to areas affected by zika, and FOB exposure to zika. Educated on use of mosquito repellent. Supervision of high risk , antepartum (primary encounter diagnosis) Multiparity History of miscarriage History of cleft palate Comment: routine Plan: CBC WITH DIFF, GC & CHLAMYDIA AMPLIFIED ASSAY, GROUP B STREPTOCOCCUS BY PCR, POCT URINALYSIS W SPECIFIC GRAVITY Viral disease exposure Comment: as orderd Plan: SARS-COV-2 IGG Depression during in third trimester Comment: not on meds. Reports stable mood Plan: as needed mgmt This visit did not involve counseling and coordination that comprised more than 50% of the visit time. FRANCHESKA Novak 07/31/2020 1:30 PM documented in this encounter Plan of Treatment Date Type Specialty Care Team Description 08/06/2020 Routine Visit [facility]ell[facility] Cassandra Henry WHCNP [address], [place] [address] [phone] Name Type Priority Associated Diagnoses Date/Ti me CBC WITH DIFF LAB Routine Supervision of high risk 1:00 PM , antepartum CDT GC & CHLAMYDIA AMPLIFIED LAB Routine Supervision of h igh risk 07/31/2020 1:03 PM ASSAY , antepartum CDT GROUP B STREPTOCOCCUS BY LAB Routine Supervision of h igh risk 07/31/2020 1:03 PM PCR , antepartum CDT SARS-COV-2 IGG LAB Routine Viral disease exposure 1:00 PM CDT Health Maintenance Due Date Last Done Comments INFLUENZA VACCINE (#1) 2021 01/02/2020, Postponed from 06/16/2020 08/20/2018 (Refused) Depression Screening 06/26/2021 06/26/2020 PAP SMEAR 01/29/2022 01/29/2019, 04/08/2016 DTaP,Tdap,and Td Vaccines (3 10/18/2028 10/18/2018, - Td) 10/16/2008 HPV VACCINES Completed 05/06/2015, 01/02/2015, 11/06/2014 PNEUMOCOCCAL 0-64 YEARS Aged Out No longe r eligible based COMBINED SERIES on patient's age to complete this to [facility] documented as of this encounter Procedures Procedure Name Priority Date/Time Associated Diagnosis Comme nts POCT URINALYSIS Routine 07/31/2020 Supervision of high risk Results for this , antepartum proced ure are in the results section . documented in this encounter Results POCT URINALYSIS W SPECIFIC GRAVITY (07/31/2020) Pathologist Sig nature POCT U SP GRAV . 1.005 - 1.025 mg/dl POCT PH U . 5 - 8 mg/dl POCT U LEUK EST . Negative - Negative POCT U NIT . Negative - Negative POCT U PROT TRACE Negative - Negative POCT U GLU NEG Negative - Negative POCT U KETONE . Negative - Negative POCT U UROBILI . 0.2 - 1 mg/dl POCT U BILI . Negative - Negative POCT U BLD . Negative - Negative POCT U COLOR POCT U APPEAR Specimen Urine - URINE, CLEAN CATCH documented in this encounter Visit Diagnoses Diagnosis Supervision of high risk , ante - Primary Viral disease exposure Contact with or exposure to other viral diseases Multiparity History of miscarriage Personal history of other genital system and obstetric disorders History of cleft palate Personal history of (corrected) congenit al malformations of eye, ear, face and neck Depression during in third tri ольгаter documented in this encounter Insurance Payer Benefit Plan / Subscriber ID Effective Phone Address T ype Group Dates [facility] [id number] 2020-Prescl[address] Medic aid HEALTH CHOICE - HEALTH CHOICE nt [id number] 1 MANAGED MEDICAID [place], [place] MEDICAID [phone] [id number] 1 documented as of this encounter Advance Directives Name Relationship Healthcare Agent Relationship Co mmunication Isidra Forbes Grandparent Health Care Agent Donovan Conroy Aunt [facility] Health Care Agent (Mobile)
--- OUTSIDE RECORDS SUMMARY | 2020-09-21 06:53 | XMS REPORT | Summary of Care ---
:1995 Author Organization [facility] Address [address] [place] [address] Care Team Providers Name Role Phone Tonie Henry [facility] Primary Care Provider Reason for Visit Reason Comments Care Encounter Details Date Type Department Care Team Description 07/24/2020 Routine [facility]- Carl, [place] vision of high risk , antepartum (Primary Dx); Visit [place] [facility] Multiparity; [address] Histor y of miscarriage; Street ST Stickler syndrome [place], [place] [address] [place], [place] [phone] Allergies Active Allergy Reactions Severity Noted Date Comments Cefprozil Hives 12/12/2007 documented as of this encounter (statuses as of 07/24/2020) Medications Medication Sig Dispensed Refills Start Date [...] as of this encounter (statuses as of 07/24/2020) Active Problems Problem Noted Date Heartburn in 06/26/2020 epistaxis 04/28/2020 Supervision of high-risk 03/02/2020 Multiparity 03/02/2020 History of miscarriage 03/02/2020 Generalized anxiety disorder 01/17/2020 Depression during 01/17/2020 Nausea and vomiting during 01/17/2020 History of cleft palate 04/23/2018 Overview: 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 Estimated Date of Delivery Comments Yes 08/28/2020 Based on Ultrasound documented as of this encounter (statuses as of 07/24/2020) Resolved Problems Problem Noted Date Resolved Date [...] examination 11/21/2014 08/03/2015 Overview: 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 documented as of this encounter Last Filed Vital Signs Vital Sign Reading Time Taken Comments Blood Pressure 115/72 07/24/2020 9:32 AM CDT Pulse 104 07/24/2020 9:32 AM CDT Temperature 36.7 C (98.1 F) 07/24/2020 9:32 AM CDT Respiratory Rate 16 07/24/2020 9:32 AM CDT Oxygen Saturation - - Inhaled Oxygen Concentration - - Weight 79.2 kg (174 lb 8 oz) 07/24/2020 9:32 AM CDT Height 165.1 cm (5' 5") 07/24/2020 9:32 AM CDT Body Mass Index 29.04 07/24/2020 9:32 AM CDT documented in this encounter Progress Notes Mally Henry, WHCNP - 07/24/2020 9:30 AM CDT Chief complaint: Chief Complaint Patient presents with Care HPI CC: Follow Up Visit Maricel Nur is a 24 year old, , /White female. Patient's last menstrual period was 11/30/2019 (approximate). She is 35w0d with an intrauterine . Her estimated date [...] PALATE REPAIR FLUID/AIR EXCHANGE 04/28/2011 Surgeon:JEFFERY COLBY; Location:[facility] OR LOCATION MYRINGOTOMY PARS PLANA VITRECTOMY 04/28/2011 Surgeon:JEFFERY COLBY; [...] file Gets together: Not on file Attends hinduism service: Not on file Active member of [...] Pt has 2 dogs in the home. 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 Social History Substance and Sexual Activity Sexual Activity Yes Partners: Male control/protection: None Comment: last sexual intercourse 12/29/2019 Labs All labs are within normal limits., Labs are pending. and Routine Visit on 07/10/2020 Component Date Value [...] 06/12/2020 . POCT U BLD 06/12/2020 . Facing Baster Jumpbasting Visit on 06/01/2020 Component Date Value GLUC [...] Negative. Psychiatric/Behavioral: Negative. Endocrine: Endocrine negative BP 115/72 (BP Location: Right arm, Patient Position: Sitting, BP CUFF SIZE: Adult Medium) | Pulse 104 | Temp 36.7 C (98.1 F) (Oral) | Resp 16 | Ht 5' 5" (1.651 m) | Wt 174 lb 8 oz (79.2 kg) |LMP 11/30/2019 (Approximate) | BMI 29.04 kg/m Pregravid BMI: Could not be calculated Physical Exam PHYSICAL: General Exam: Neurological: Normal Abdomen: Normal gravid Extremities: Normal Pelvic Exam: Uterus: 35 Weeks Assessment/Plan Return to clinic in 1 weeks. Denies zika virus risk, signs and symptoms such as fever,rash,joint pain, conjunctivitis (red eyes),muscle pain, headaches; outside [place] travel to areas affected by zika, and FOB exposure to zika. Educated on use of mosquito repellent. Supervision of high risk , antepartum Multiparity History of miscarriage Stickler syndrome Comment: routine Plan: POCT URINALYSIS W SPECIFIC GRAVITY This visit did not involve counseling and coordination that comprised more than 50% of the visit time. FRANCHESKA Novak 07/24/2020 9:46 AM documented in this encounter Plan of [...] on patient's age to complete this to [facility] documented as of this encounter Procedures Procedure Name Priority Date/Time Associated Diagnosis Comme nts POCT URINALYSIS Routine 07/24/2020 9:33 AM Supervision of [facility] Results for this CDT risk , procedure ar e in antepartum the results section. documented in this encounter Results POCT URINALYSIS W SPECIFIC GRAVITY (07/24/2020 9:33 AM CDT) Pathologist Sig nature POCT U [...] of other genital system and obstetric disorders Stickler syndrome Other specified congenital anomalies documented in this encounter Insurance Payer Benefit Plan / Subscriber ID Effective Phone Address [facility] [id number] 2020-Prese [address] BOX Medic aid HEALTH CHOICE - HEALTH [employer] nt [id number] 1 MANAGED MEDICAID [place], [place] [phone] [id number] 1 documented as of this encounter Advance Directives Name Relationship Healthcare Agent Relationship Co mmunication Isidra Andrei Grandparent Health Care Agent Donovan Conroy Aunt [facility] Health Care Agent (Mobile)
--- OUTSIDE RECORDS SUMMARY | 2020-09-21 06:53 | XMS REPORT | Summary of Care ---
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 Need for HPV vaccination 11/21/2014 08/03/2015 [...] OB Satellites Cassandra Henry WHCNP [address] [place], [place] [address] [phone] Health Maintenance Due Date Last Done Comments INFLUENZA VACCINE (#1) 2021 01/02/2020, Postponed from 06/16/2020 08/20/2018 (Refused) Depression Screening 06/26/2021 06/26/2020 PAP SMEAR 01/29/2022 01/29/2019, 04/08/2016 DTaP,Tdap,and Td Vaccines (3 10/18/2028 10/18/2018, - Td) 10/16/2008 HPV VACCINES Completed 05/06/2015, 01/02/2015, 11/06/2014 PNEUMOCOCCAL 0-64 YEARS Aged Out No longe r eligible based COMBINED SERIES on patient's age to complete this to [facility] documented as of this encounter Results Not on filedocumented in this encounter Visit Diagnoses Diagnosis Anemia of mother in , antepartu m - Primary Anemia, antepartum documented in this encounter Insurance Payer Benefit Plan / Subscriber ID Effective Phone Address T [facility] [id number] 2020-Prese [address] BOX Medic aid HEALTH CHOICE - HEALTH CHOICE nt [id number] 1 MANAGED MEDICAID [place], [place] [phone] documented as of this encounter Advance Directives Name Relationship Healthcare Agent Relationship Co mmunication Isidra Forbes Grandparent Health Care Agent Donovan Conroy Aunt [facility] [phone] Agent (Mobile)
--- OUTSIDE RECORDS SUMMARY | 2020-09-21 06:54 | XMS REPORT | Summary of Care ---
:1995 Author Organization [facility] Address [address] [place] [address] Care Team Providers Name Role Phone Tonie Henry [facility] Primary Care Provider Reason for Visit Reason Comments Care NON-STRESS TEST Encounter Details Date Type Department Care Team Description [facility] Super vision of high risk , antepartum (Primary Dx); Visit [place] Mally Schilling [facility] Multiparity; [address] Histor y of miscarriage; [address] Stickler syndrome; [place], [place] NADER A History of cleft palate; [id number] [place], [place] Anemia of mother in pregnanc y, antepartum; [phone] [place] [place]'s contraction [phone] Allergies Active Allergy Reactions Severity Noted Date Comments Cefprozil Hives 12/12/2007 documented as of this encounter (statuses as of 08/06/2020) Medications Medication Sig Dispensed Refills Start Date [...] as of this encounter (statuses as of 08/06/2020) Active Problems Problem Noted Date Anemia of [...] as of this encounter (statuses as of 08/06/2020) Resolved Problems Problem Noted Date Resolved Date [...] examination 11/21/2014 08/03/2015 Overview: ICD10 Diagnosis Term Practice Representative Utility Need for HPV vaccination 11/21/2014 08/03/2015 Underweight 11/21/2014 04/08/2016 Retinoschisis, Macular 05/06/2013 11/21/2014 Cataract, Right Eye 05/06/2013 11/21/2014 documented as of this encounter (statuses as of 08/06/2020) Immunizations Name Administration Dates Next Due HPV [...] been in contact with No / Unsure 08/06/2020 2:04 PM CDT someone who was confirmed or suspected to have Coronavirus / COVID-19? documented as of this encounter Last Filed Vital Signs Vital Sign Reading Time Taken Comments Blood Pressure 119/72 08/06/2020 2:05 PM CDT Pulse 91 08/06/2020 2:05 PM CDT Temperature 36.7 C (98.1 F) 08/06/2020 2:05 PM CDT Respiratory Rate 16 08/06/2020 2:05 PM CDT Oxygen Saturation - - Inhaled Oxygen Concentration - - Weight 81.3 kg (179 lb 3 oz) 08/06/2020 2:05 PM CDT Height 165.1 cm (5' 5") 08/06/2020 2:05 PM CDT Body Mass Index 29.82 08/06/2020 2:05 PM CDT documented in this encounter Progress Notes Mally Henry, WHSHANNANP - 08/06/2020 2:00 PM CDT Chief complaint: Chief Complaint Patient presents with Care NON-STRESS TEST HPI CC: Follow Up Visit Maricel Nur is a 24 year old, , /White female. Patient's last menstrual period was 11/30/2019 (approximate). She is 36w6d with an intrauterine . Her estimated date of delivery is 08/28/2020, by Ultrasound. She complains today of: Contractions. She reports mild contractions occurring every 100 minutes, now off and on .. She reports +FM and denies contractions, LOF [...] Diagnosis Date Abnormal uterine bleeding 2019 Anemia 2018 with previous Anxiety ongoing, not currently seeing [...] file Gets together: Not on file Attends muslim service: Not on file Active member of [...] Pt has 2 dogs in the home. Jew preference Moravian. Social History Substance and Sexual Activity Sexual Activity Yes Partners: Male control/protection: None Comment: last sexual intercourse 12/29/2019 Labs No new labs, Routine Visit on 07/31/2020 Component Date Value WBC 07/31/2020 12.41* RBC 07/31/2020 3.76* HGB 07/31/2020 9.7* HCT 07/31/2020 32.1* MCV 07/31/2020 85.4 MCH 07/31/2020 25.8* MCHC 07/31/2020 30.2* RDW-SD 07/31/2020 41.7 RDW-CV 07/31/2020 13.5 PLT 07/31/2020 293 MPV 07/31/2020 10.8 NRBC/100 WBC 07/31/2020 0.0 NRBC x10^3 07/31/2020 <0.01 GRAN MAT (NEUT) % 07/31/2020 70.1 IMM GRAN % 07/31/2020 2.60 LYMPH % 07/31/2020 16.8 MONO % 07/31/2020 7.9 EOS % 07/31/2020 2.1 BASO % 07/31/2020 0.5 GRAN MAT x10^3(ANC) 07/31/2020 8.71* IMM GRAN x10^3 07/31/2020 0.32* LYMPH x10^3 07/31/2020 2.08 MONO x10^3 07/31/2020 0.98* EOS x10^3 07/31/2020 0.26 BASO x10^3 07/31/2020 0.06 C. trachomatis Nucleic A* 07/31/2020 Negative N. gonorrhoeae Nucleic A* 07/31/2020 Negative Group B Streptococcus by* 07/31/2020 Negative CoV-2 IgG 07/31/2020 Negative POCT U SP GRAV 07/31/2020 . POCT PH U 07/31/2020 . POCT U LEUK EST 07/31/2020 . POCT U NIT 07/31/2020 . POCT U PROT 07/31/2020 TRACE POCT U GLU 07/31/2020 NEG POCT U KETONE 07/31/2020 . POCT U UROBILI 07/31/2020 . POCT U BILI 07/31/2020 . POCT U BLD 07/31/2020 . Routine Visit on 07/24/2020 Component Date Value [...] 07/10/2020 . POCT U BLD 07/10/2020 . and Routine Visit on 07/31/2020 Component Date Value WBC 07/31/2020 12.41* RBC 07/31/2020 3.76* HGB 07/31/2020 9.7* HCT 07/31/2020 32.1* MCV 07/31/2020 85.4 MCH 07/31/2020 25.8* MCHC 07/31/2020 30.2* RDW-SD 07/31/2020 41.7 RDW-CV 07/31/2020 13.5 PLT 07/31/2020 293 MPV 07/31/2020 10.8 NRBC/100 WBC 07/31/2020 0.0 NRBC x10^3 07/31/2020 <0.01 GRAN MAT (NEUT) % 07/31/2020 70.1 IMM GRAN % 07/31/2020 2.60 LYMPH % 07/31/2020 16.8 MONO % 07/31/2020 7.9 EOS % 07/31/2020 2.1 BASO % 07/31/2020 0.5 GRAN MAT x10^3(ANC) 07/31/2020 8.71* IMM GRAN x10^3 07/31/2020 0.32* LYMPH x10^3 07/31/2020 2.08 MONO x10^3 07/31/2020 0.98* EOS x10^3 07/31/2020 0.26 BASO x10^3 07/31/2020 0.06 C. trachomatis Nucleic A* 07/31/2020 Negative N. gonorrhoeae Nucleic A* 07/31/2020 Negative Group B Streptococcus by* 07/31/2020 Negative CoV-2 IgG 07/31/2020 Negative POCT U SP GRAV 07/31/2020 . POCT PH U 07/31/2020 . POCT U LEUK EST 07/31/2020 . POCT U NIT 07/31/2020 . POCT U PROT 07/31/2020 TRACE POCT U GLU 07/31/2020 NEG POCT U KETONE 07/31/2020 . POCT U UROBILI 07/31/2020 . POCT U BILI 07/31/2020 . POCT U BLD 07/31/2020 . Routine Visit on 07/24/2020 Component Date Value [...] 06/12/2020 . POCT U BLD 06/12/2020 . Bow Maker Custom Visit on 06/01/2020 Component Date Value GLUC [...] medication list which includes the following prescription(s): ascorbic acid (vitamin c), ferrous sulfate, sertraline, and promethazine. Review of Systems Constitutional: Negative. HENT: Negative. Eyes: Negative. Respiratory: Negative. Breasts: Negative. Cardiovascular: Negative. Gastrointestinal: Negative. Genitourinary: Negative. Musculoskeletal: Negative. Skin: Negative. Neurological: Negative. Psychiatric/Behavioral: Negative. Endocrine: Endocrine negative BP 119/72 (BP Location: Right arm, Patient Position: Sitting, BP CUFF SIZE: Adult Medium) | Pulse 91 | Temp 36.7 C (98.1 F) (Oral) | Resp 16 | Ht 5' 5" (1.651 m) | Wt 179 lb 3 oz (81.3 kg) | LMP 11/30/2019 (Approximate) | BMI 29.82 kg/m Pregravid BMI: Could not be calculated Physical Exam PHYSICAL: General Exam: Neurological: Normal Abdomen: Normal gravid Extremities: Normal Assessment/Plan Return to clinic in 1 weeks. Denies zika virus risk, signs and symptoms such as fever,rash,joint pain, conjunctivitis (red eyes),muscle pain, headaches; outside [place] travel to areas affected by zika, and FOB exposure to zika. Educated on use of mosquito repellent. Supervision of high risk , antepartum (primary encounter diagnosis) Multiparity History of miscarriage Stickler syndrome History of cleft palate Comment: routine Plan: POCT URINALYSIS W SPECIFIC GRAVITY Anemia of mother in , antepartum Comment: continue iron, PNV and iron-rich foods Plan: monitor Contractions Comment: reports since last night and today about every 10min Plan: NST: cat 1, reactive/reassuring, no ctx, +accels, neg decls, moderate variability This visit did not involve counseling and coordination that comprised more than 50% of the visit time. FRANCHESKA Novak 08/06/2020 2:53 PM documented in this encounter Plan of Treatment Date Type Specialty Care Team Description 08/14/2020 Routine Visit [facility] Cassandra Henry WHCNP [address] [place], [place] [address] [phone] Health Maintenance Due Date Last Done Comments INFLUENZA VACCINE (#1) 2021 01/02/2020, Postponed from 06/16/2020 08/20/2018 (Refused) Depression Screening 08/06/2021 08/06/2020 PAP SMEAR 01/29/2022 01/29/2019, 04/08/2016 DTaP,Tdap,and Td Vaccines (3 10/18/2028 10/18/2018, - Td) 10/16/2008 HPV VACCINES Completed 05/06/2015, 01/02/2015, 11/06/2014 PNEUMOCOCCAL 0-64 YEARS Aged Out No longe r eligible based COMBINED SERIES on patient's age to complete this to [facility] documented as of this encounter Procedures Procedure Name Priority Date/Time Associated Diagnosis Comme nts NON-STRESS Routine 08/06/2020 2:54 Daljit Rivera's Resul ts for this TEST PM CDT contraction procedure are i n the results section. POCT URINALYSIS Routine 08/06/2020 2:06 Supervision of R elaine for this PM CDT risk , procedure ar e in antepartum the results section. documented in this encounter Results NON-STRESS TEST (08/06/2020 2:54 PM CDT) Specimen Narrative Performed At This result has an attachment that is no t available. NST: cat 1, reactive/reassuring, no ctx, +accels, neg decls, moderate PACS variability Performing Organization Address City/State/Zipcode Phone Number PACS POCT URINALYSIS W SPECIFIC GRAVITY (08/06/2020 2:06 PM CDT) Pathologist Sig nature POCT U SP [...] disorders Stickler syndrome Other specified congenital anomalies History of cleft palate Personal history of (corrected) congenit al malformations of eye, ear, face and neck Anemia of mother in , antepartu m Anemia, antepartum Thayer Hick's contraction Other threatened labor, unspecified as t o episode of care documented in this encounter Insurance Payer Benefit Plan / Subscriber ID Effective Phone Address T [facility] [id number] 2020-Prese [address] Medic aid HEALTH CHOICE - HEALTH [place] nt [id number] 1 MANAGED MEDICAID [place], [place] [phone] [id number] 1 documented as of this encounter Advance Directives Name Relationship Healthcare Agent Relationship Co mmunication Isidra Forbes Grandparent Health Care Agent Donovan Conroy Aunt First [facility] Health Care [phone] Agent (Mobile)
--- OUTSIDE RECORDS SUMMARY | 2020-09-21 06:54 | XMS REPORT | Summary of Care ---
:1995 Author Organization [facility] Address [address] [place] [address] Care Team Providers Name Role Phone Tonie Henry Primary Care Provider Reason for Visit Auth/Cert Status Reason Specialty Diagnoses / Procedures Referred By Tonie cano Referred To Contact Obstetrics [facility] Labor And Delivery [address] [place] [address] [phone] Phone: Fax: Encounter Details Date Type Department Care Team Description 08/10/2020 - Hospital Encounter [facility] Labor and Delivery Maricel Garcia MD 08/11/2020 [address] [facility] [address] [facility] [address] [place] [address] [place], [place] [phone] Allergies Active Allergy Reactions Severity Noted Date Comments Cefprozil Hives 12/12/2007 documented as of this encounter (statuses as of 08/11/2020) Medications Medication Sig Dispensed Refills Start Date [...] as of this encounter (statuses as of 08/11/2020) Active Problems Problem Noted Date Anemia of [...] as of this encounter (statuses as of 08/11/2020) Resolved Problems Problem Noted Date Resolved Date [...] examination 11/21/2014 08/03/2015 Overview: ICD10 Diagnosis Term 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 Need for HPV vaccination 11/21/2014 08/03/2015 Underweight 11/21/2014 04/08/2016 Retinoschisis, Macular 05/06/2013 11/21/2014 Cataract, Right Eye 05/06/2013 11/21/2014 documented as of this encounter (statuses as of 08/11/2020) Immunizations Name Administration Dates Next Due HPV [...] Sign Reading Time Taken Comments Blood Pressure 113/78 08/10/2020 11:39 PM CDT Pulse 83 08/11/2020 12:30 AM CDT Temperature 36.8 C (98.3 F) 08/10/2020 11:39 PM CDT Respiratory Rate 16 08/10/2020 11:39 PM CDT Oxygen Saturation 98% 08/10/2020 11:45 PM CDT Inhaled Oxygen Concentration - - Weight 83.5 kg (184 lb) 08/10/2020 11:39 PM CDT Height 165.1 cm (5' 5") 08/10/2020 11:39 PM CDT Body Mass Index 30.62 08/10/2020 11:39 PM CDT documented in this encounter Discharge Instructions Brii Gtz RN - 08/11/2020Term Labor (37+ weeks): Return to Labor and Delivery/ Center if: 1. Your contractions become more regular, at least every 5-6 minutes apart for one hour after walking and drinking a large glass of water. 2. Your bag of water starts leaking or you have a gush of water from your vagina. 3. If you are not sure if your water has broken: 1. Go to the bathroom and empty your bladder. 2. Put on a pad. If it is wet within hour, you may be leaking from your bag of water. You should come to the hospital to be checked right away. 3. Note the color and odor of the fluid. 4. Your babys movements have decreased or if your baby is not moving. 5. You have vaginal bleeding as heavy as a period. Decreased Movement: 1. Your baby should move at least 10 times in 2 hrs. 2. Keep a record of your babys movements on the Kick Count sheet provided 3. If you feel your baby is not moving as much as usual, do the followin. Drink a large glass of water. 2. Make sure you have eaten a meal recently. 3. Lie on your left side and count the babys movements. 4. If you do not have at least 10 movements in 2 hours, you should be seen as soon as possible in Labor and Delivery, or call your clinic, whichever is closer. 5. IF YOUR BABYS MOVEMENTS ARE MUCH SLOWER THAN NORMAL, OR ABSENT, AND YOU ARE WORRIED, DO NOT WAIT AN ENTIRE DAY. IT IS BETTER TO BE REASSURED THAN TO FIND A PROBLEM WITH YOUR BABY THAT COULD HAVE BEEN AVOIDED! Urinary Tract Infections: 1. Drink plenty of fluids, at least 10-12 glasses of water daily. 2. Have your prescription filled today. 3. Take all of the medication prescribed, even if you are feeling better. 4. Empty your bladder often at least every 2 hours. 5. Be sure to wipe from front to back after urinating. 6. Call your clinic if: 1. You have a fever of 100.4 F by mouth after taking your temperature twice, 4 hours apart. 2. You see blood in your urine. 3. You are unable to urinate. 4. You have severe pain when you urinate. 7. Avoid alcohol, soft drinks and drinks with caffeine such as teas and coffee during this treatment. Bleedin. It is normal to have some red, pink, or brown spotting after a vaginal exam. 2. [place], light red and brownish spotting is not unusual, especially later in the . 3. However, if heavy bleeding is present: a. Note the amount with the number of pads saturated. b. Note the color of the bleeding. c. Note any pain associated with the bleeding. d. Call Labor and Delivery or your clinic immediately. Fever: 1. Call your clinic if you have a fever of 100.4 F by mouth after taking your temperature twice, 4 hours apart. 2. Do not take any [id number]-ddvjczp medications for an illness unless you have been instructed to doso by your physician or nurse. You should only take medicines on the list of safe medicines given to you at your clinic. Do not take more than the recommended doses. High Blood Pressure: Return to Labor and Delivery if you have: 1. Swelling in your face, puffiness around your eyes, more than slight swelling of your hands, or excessive or sudden swelling of your feet or ankles. 2. Sudden weight gain (more than 4 pounds in a week). 3. Throbbing headaches that wont go away, even after taking opww-krw-fazyopb medicines as instructed by your care provider. 4. Changes in vision, including blurry vision, a sensation of flashing lights or spots, or temporaryloss of vision. 5. Severe pain or tenderness in your upper stomach area. This may include nausea and vomiting. 6. documented in this encounter Plan of Treatment Date Type Specialty Care Team Description 08/14/2020 [facility]ine [facility] [address] [id number] [phone] Health Maintenance Due Date Last Done Comments [...] / Subscriber ID Effective Phone Address T [facility] [id number] 2020-Prese [address] Medic aid HEALTH CHOICE - HEALTH CHOICE nt [id number] 1 MANAGED MEDICAID [place], [place]ID [id number] 1 documented as of this encounter Advance Directives Name Relationship Healthcare Agent Relationship Co mmunication Isidra Forbes Grandparent Health Care Agent Donovan Conroy Aunt First [facility] Health Care Agent (Mobile)
--- OUTSIDE RECORDS SUMMARY | 2020-09-21 06:55 | XMS REPORT | Summary of Care ---
:1995 Author Organization [facility] Address [address] [place] [address] Care Team Providers Name Role Phone Tonie Henry Primary Care Provider Reason for Referral (Routine) Status Reason Specialty Diagnoses / Referred By Referred To Procedures Contact Contact New Request [facility]G-OBSTETRICS & Diagnoses (spontaneous vaginal delivery) Sarah Le, GYNECOLOGY Procedures Discharge Follow-Up: Specialty Service [facility]G-OBSTETRICS & GYNECOLOGY; [address] [address] Reason for Visit Auth/Cert Status Reason Specialty Diagnoses / Procedures Referred By Tonie cano Referred To Contact Obstetrics [facility] Labor And Delivery [address] [place], [place] [address] Phone: Fax: Encounter Details Date Type Department Care Team Description 08/14/2020 - Hospital Encounter Mother Baby Unit Edel Carballo MD [address] [place] [address] [place] [address] (spontaneous 08/16/2020 (J8C) Vonnie Kearney MD [address] [place] [address] [id number] [place], [place] [id number] vaginal delivery) [address] [place] [address] [phone] Allergies Active Allergy Reactions Severity Noted Date Comments Cefprozil Hives 12/12/2007 documented as of this encounter (statuses as of 08/16/2020) Medications Medication Sig Dispensed Refills Start Date End Date Status SERTraline (ZOLOFT) Take 1 tablet 30 tablet 4 01/20/2020 Active 50 mg by mouth tabletIndications: daily. Generalized anxiety disorder, Recurrent major depressive disorder, remission status unspecified acetaminophen 325 Take 2 tablets 30 tablet 1 08/16/2020 Active mg by mouth every 1 tabletIndications: 6 (six) hours (spontaneous as needed for vaginal delivery) Pain (scale 1-3). docusate calcium Take 1 capsule 30 capsule 1 08/16/2020 Active 240 mg by mouth once capsuleIndications: daily as (spontaneous needed for vaginal delivery) Constipation. ibuprofen 600 mg Take 1 tablet 30 tablet 1 08/16/2020 Active tabletIndications: by mouth every (spontaneous 6 (six) hours vaginal delivery) as needed for Pain (scale 4-6). vitamin Take 1 tablet 60 tablet 1 08/17/2020 Active w/FA by mouth tabletIndications: daily. (spontaneous vaginal delivery) vitamin Take 1 tablet 100 tablet 3 08/16/2020 Active w/FA by mouth tabletIndications: daily. (spontaneous vaginal delivery) docusate calcium Take 1 capsule 60 capsule 1 08/16/2020 Active 240 mg by mouth once capsuleIndications: daily as (spontaneous needed for vaginal delivery) Constipation. ferrous sulfate 325 Take 1 tablet 60 tablet 2 08/16/2020 Active mg (65 mg iron) by mouth 2 tabletIndications: (two) times (spontaneous daily. vaginal delivery) ibuprofen 600 mg Take 1 tablet 60 tablet 1 08/16/2020 Active tabletIndications: by mouth every (spontaneous 6 (six) hours vaginal delivery) as needed (Pain). Take with food or milk. measles, mumps + inject 0.5 mL 0.5 mL 0 08/16/2020 08/16/20 2 Active rubella vac under the skin 0 1,000-12,500 once now for 1 TCID50/0.5 mL dose. injectionIndication s: Rubella non-immune status, antepartum proMETHazine 25 mg Take 1 tablet 30 tablet 0 01/02/2020 Discontinued tabletIndications: by mouth every 0 Nausea and vomiting 6 (six) hours during as needed for Nausea and Vomiting (N/V). ascorbic acid, Take 1 tablet 90 tablet 2 08/03/2020 Discontinued vitamin C, 500 mg by mouth 3 0 tabletIndications: (three) times Anemia of mother in daily. , antepartum ferrous sulfate 325 Take 1 tablet 60 tablet 3 08/03/202008/16 Discontinued mg (65 mg iron) by mouth 2 0 tabletIndications: (two) times Anemia of mother in daily. , antepartum documented as of this encounter (statuses as of 08/16/2020) Active Problems Problem Noted Date S/P tubal ligation 08/16/2020 ROM (rupture of membranes), premature 08/14/2020 Obesity (BMI 30-39.9) 08/14/2020 Anemia of mother in , antepartum 08/03/2020 Heartburn in 06/26/2020 epistaxis 04/28/2020 Supervision of high-risk 03/02/2020 Multiparity 03/02/2020 History of miscarriage 03/02/2020 Generalized anxiety disorder 01/17/2020 Depression during 01/17/2020 Nausea and vomiting during 01/17/2020 Rubella non-immune status, antepartum 01/03/2020 Overview: Address pp (spontaneous vaginal delivery) 12/14/2018 Single live 12/14/2018 38 weeks gestation of 10/13/2018 History of cleft palate 04/23/2018 Overview: Repaired Stickler's syndrome 04/23/2018 Comments Yes documented as of this encounter (statuses as of 08/16/2020) Resolved Problems Problem Noted Date Resolved Date Supervision of high-risk 01/02/202001/16 Well woman exam 01/29/2019 01/02/2020 Contraceptive management 01/29/2019 01/02/2020 Routine follow-up 01/07/2019 01/29/2019 Labor and delivery, indication for care 12/14/2018 01/07/2019 Premature uterine contractions 12/13/2018 9 H/O maternal Chlamydia infection, currently , third 11/22/2018 01/07/2019 trimester Supervision of high-risk 11/09/201801/07 Threatened labor, third trimester 10/13/2018 12/10/2018 Vaginal [...] examination 11/21/2014 08/03/2015 Overview: ICD10 Diagnosis Term 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 Utility Need for HPV vaccination 11/21/2014 08/03/2015 Underweight 11/21/2014 04/08/2016 Retinoschisis, Macular 05/06/2013 11/21/2014 Cataract, Right Eye 05/06/2013 11/21/2014 documented as of this encounter (statuses as of 08/16/2020) Immunizations Name Administration Dates Next Due HPV 05/06/2015, 01/02/2015, 11/06/2014 HPV9 12/14/2018 (Deferred: - pt completed 3 HPV vaccines.) Influenza Virus Vaccine Quad .5 mL 01/02/2020 IM 6+ MO Influenza Virus Vaccine Quad IM 08/20/2018 Multi-dose 6+ MO MMR 08/16/2020, 01/02/2015 TDAP 10/18/2018 Td 10/16/2008 documented as of this encounter Social History Tobacco Use Types Packs/Day Years Used Date Never Smoker Smokeless Tobacco: Never Used Alcohol Use Drinks/Week oz/Week Comments No 0 Standard drinks or equivalent 0.0 Education Answer Date Recorded What is the highest level of school you have completed or 11 th grade 08/14/2020 the highest degree you have received? Financial Resource Strain Answer Date Recorded How hard is it for you to pay for the very basics like Not v marily hard 08/14/2020 food, housing, medical care, and heating? Comments Yes Sex Assigned at Date Recorded Not on file COVID-19 Exposure Response Date Recorded In the last month, have you been in contact with No / Unsure 08/14/2020 5:27 AM CDT someone who was confirmed or suspected to have Coronavirus / COVID-19? documented as of this encounter Last Filed Vital Signs Vital Sign Reading Time Taken Comments Blood Pressure 125/85 08/16/2020 7:55 AM JUMPBASTING FACING BASTER Pulse 73 08/16/2020 7:55 AM JUMPBASTING FACING BASTER Temperature 37 C (98.6 F) 08/16/2020 7:55 AM JUMPBASTING FACING BASTER Respiratory Rate 17 08/16/2020 7:55 AM JUMPBASTING FACING BASTER Oxygen Saturation 97% 08/16/2020 7:55 AM JUMPBASTING FACING BASTER Inhaled Oxygen Concentration - - Weight 83.7 kg (184 lb 8 oz) 08/14/2020 10:45 AM CDT Height 165.1 cm (5' 5") 08/14/2020 10:45 AM CDT Body Mass Index 30.7 08/14/2020 10:45 AM CDT documented in this encounter Discharge Instructions Marie Painter RN - 08/16/2020Multidisciplinary Discharge Instructions (may include diet, dressing changes, activity limits, written materials given to patient: DIET: Eat a well balanced diet; drink 6-8 glasses of fluids daily; eat fruits and green, leafy vegetables. DAILY ACTIVITIES: 1. As much as you feel able to do. Rest when you are tired. 2. Limitations: Specify; No heavy lifting other than your baby for 4 weeks if you had surgery. TREATMENT AT HOME 1. Use a well-fitting bra to prevent breast engorgement 2. Resume intercourse as instructed by your physician. 3. Do not use douches or tampons for four weeks. 4. To help prevent urinary tract infection; after each urination and bowel movement, wipe and dry from front to back and change camille pad. 5. Follow discharge instructions regarding baby care. 6. Follow family planning instructions. IMMEDIATE TREATMENT - Call Clinic or Your Physician 1. Increase in pain and tenderness of uterus. 2. Increased vaginal bleeding (bright red blood which soaks 2 pads in 1 hour or pass large clots). 3. Foul smelling vaginal discharge. 4. Burning in the tube that empties the urine from the bladder. 5. Painful breast engorgement or cracked nipples. 6. Pain, discharges, or gaping incision. 7. Temperature greater than 38.0C or 100.4F 8. Pain and tenderness of calf or thigh muscles. 9. No bowel movements in 4 days. For Problems or Questions Call: OB Clinic Family Planning [phone] or Emergency: Go to the closest emergency room or call 911 AttachmentsThe following attachments cannot be sent through Care Everywhere. Vaginal , After a (Bolivian) Depression, Understanding (Bolivian) Breast, (Bolivian), Breast Care After (Bolivian)Bottle-feed, How to (Bolivian)documented in this encounter Progress Notes Melanie Walker, ELIZABETH - 08/15/2020 7:27 AM CDT PROGRESS NOTE Subjective: Patient is a 24 year old , S/P , post day 1. She complains of cramps. Patient denies sob, vertigo, or palpitations. Patient reports voiding without difficulty with good urine output. Patient reports ambulating unassisted without difficulty. Tolerating diet, passing flatus. NPO past midnight for BTL this AM. Breast/bottlefeeding. No evidence of depression. Changes since previous day: Delivered Objective: Vital Signs: BP: (95-138)/(34-85) Temp: [36.6 C (97.8 F)-36.8 C (98.2 F)] Temp source: Oral (08/15 0000) Pulse: [69-108] Resp: [16-20] SpO2: [95 %-100 %] Height: [165.1 cm (5' 5")] Weight: [83.7 kg (184 lb 8 oz)] BMI (calculated): [30.7] Physical Exam: General: No apparent distress Happy with new baby. Affect appropriate Heart: regular rate and rhythm. S1, S2 present. No murmur/ rubs/gallops Lungs: good inspiratory effort to inspections, lungs clear to auscultation bilaterally. No wheeze/stridor/ crackles bilaterally. Breast: soft Abdomen: soft non-tender Fundus: firm at umbilicus Perineum: intact, no edema, hematoma or abcess Lochia: scant rubra, no clots Extremities: no clubbing, cyanosis, or edema bilaterally. No calf tenderness/ NEG Lester's Current Medications: Current Facility-Administered Medications Medication Dose Route Frequency Last Rate Last Dose acetaminophen (TYLENOL) tablet 650 mg 650 mg Oral Q6HPRN 650 mg at 08/15/20 0435 benzocaine-menthol (DERMOPLAST) 20-0.5 % topical spray Topical PRN diphenhydrAMINE (BENADRYL) tablet 25 mg 25 mg Oral Q6HPRN diphenhydrAMINE-0.9 % sod.chlr (BENADRYL) 25 mg/50 mL piggyback 25 mg 25 mg IV Piggyback Q6HPRN docusate calcium (SURFAK) capsule 240 mg 240 mg Oral QDAILYPRN ibuprofen (IBU) tablet 600 mg 600 mg Oral Q6HPRN LR 1000 mL + oxytocin 20 units IV Solution IV Infusion CONTINUOUS magnesium hydroxide (MILK OF MAGNESIA) 400 mg/5 mL suspension 30 mL 30 mL Oral QDAILYPRN ondansetron (ZOFRAN (PF)) injection 4 mg 4 mg Slow IV Push Q8HPRN vitamin w/FA (PRENATABS RX) tablet 1 tablet 1 tablet Oral DAILY rho(D) immune globulin (RHOGAM) syringe 300 mcg 300 mcg Intramuscular ONCE simethicone (GAS RELIEF (SIMETHICONE)) chewable tablet 160 mg 160 mg Oral PC+HSPRN Labs: CBC BMP MAGNESIUM WBC x10^3 (/uL) Date Value 01/06/2015 11.2 (H) WBC (10*3/L) Date Value 08/15/2020 17.29 (H) NA (mmol/L) Date Value 05/13/2018 137 No results found for: MG PLT x10^3 (/uL) Date Value 01/06/2015 404 (H) PLT (10*3/L) Date Value 08/15/2020 246 K (mmol/L) Date Value 05/13/2018 4.7 HGB Date Value 08/15/2020 10.4 g/dL (L) 01/06/2015 13.3 G/DL CALCIUM (mg/dL) Date Value 05/13/2018 9.2 HCT (%) Date Value 08/15/2020 32.9 (L) 01/06/2015 40.2 CL (mmol/L) Date Value 05/13/2018 101 TYPE & RH BUN (mg/dL) Date Value 05/13/2018 11 ABO & RH (no units) Date Value 08/14/2020 O Positive CREATININE (mg/dL) Date Value 12/10/2018 0.60 Type & Screen Rubella Varicella ABO & RH (no units) Date Value 08/14/2020 O Positive RUBELLA (no units) Date Value 11/06/2014 Equivoc (A) Rubella screen IgG (no units) Date Value 01/02/2020 Equivocal No results found for: VZVG No results found for: TSABINT Hep B HIV Syphilis No results found for: HBS HIV 1/2 Ab (no units) Date Value 11/06/2014 NEGATIVE SYPH IgG/IgM (no units) Date Value 11/06/2014 Non Reac Group B Strep Chlamydia No results found for: CGBS Chlamydia Amplified Assay (no units) Date Value 11/06/2014 NEGATIVE C. trachomatis Nucleic Acid (no units) Date Value 07/31/2020 Negative Assessment/Plan: COVID-19 screening at admission is negative Denies travel to known Covid-19 affected areas. Denies close contact with someone suspected of having the Covid-19. Denies any s/s of Covid-19. Reviewed with patient plan of care if she should learn of exposure to Covid-19 or develop s/s of Covid-19. This patient is considered low risk for COVID-19 infection Principal Problem: (spontaneous vaginal delivery) (12/14/2018) POA: Yes Assessment: Delivered Plan: Routine course Active Problems: 38 weeks gestation of (10/13/2018) POA: Unknown Single live (12/14/2018) POA: Yes ROM (rupture of membranes), premature (08/14/2020) POA: Yes Assessment: 3410g with 9/9 Apgars Plan: in care of pediatricians Stickler's syndrome (04/23/2018) POA: Unknown Assessment: patient with Stickler syndrome/Efrain-Wai syndrome Plan: Routine PP care Generalized anxiety disorder (01/17/2020) POA: Yes Depression during (01/17/2020) POA: Yes Assessment: denies signs or symptoms of depression, no SI/HI , mood is stable Plan: Reassess pt for depression at 3 week PP visit. BMI 30-39.9 (08/14/2020) POA: Unknown Assessment: Assessment: see BMI Plan: healthy life style changes, pelvic rest x 6 weeks ASSESSMENT 24 y/o S/p on 08/14/2020 at 07:43 PM complicated by none. Patient is recovering well: hemodynamically stable, good UOP, pain well-controlled, vitals within normal limits. PLAN 1. Review: - Admitted for: IOL at 38 weeks d/t PROM - Estimated blood loss: 200 ml - Laceration: None - Vaginal delivery Complications: None - Predelivery H/H: 9.8/31.7 - Postdelivery H/H:10.4/32.9 2. care: - Diet: Regular diet - Fluid: Encourage oral intake - Activity: Encourage ambulation - Pain: [place] and Ibuprofen - DVT prophylaxis: Encourage ambulation 3. Discharge Planning: - Contraception: BTL this AM - Vaccines: Rb prior to discharge - Follow Up: follow-up in 3 weeks at clinic - Anticipate discharge tomorrow 4. Baby Status - at bedside ELIZABETH Em Pati Cabello MD - 08/14/2020 12:56 PM JOSEFA COUNSELING NOTE "I counseled the patient regarding incentives, risks, benefits and alternatives of Bilateral Tubal Ligation including: risk of infection, bleeding, need for transfusion of blood/blood products, injury to ureter, bladder, bowel with possible further surgery, stint, catheterization or colostomy to repair. The permanence of this procedure and risk of regret in 1 in 3 women were discussed. tubal ligation failure rate is 0.75% and higher in women younger than 30 years old. There is an increased risk for ectopic and the need to seek medical attention should failure of tubal ligation occur. Alternatives discussed include: Oral Contraceptive Agents, Intrauterine Device, Depo Provera, Ring, Patch, Condoms/foam, interval bilateral tubal ligation, or vasectomy of partner. Allquestions answered, and patient expressed her desire to proceed with bilateral tubal ligation surgery." Previous abdominal surgery: none Weight: 184 lb Consent signed on: 06/12/20 Pati Snider MD documented in this encounter H&P Notes Pati Snider MD - 08/14/2020 10:25 AM CDT TRIAGE/L&D HISTORY & PHYSICAL IDENTIFYING DATA Maricel Nur is 24 year old, /White, 38w0d, female with GINA 08/28/2020, by Ultrasound. : 1995 Primary Care Physician: Mally Henry CHIEF COMPLAINT transfer HISTORY OF PRESENT ILLNESS Maricel Nur is a 24 year old at 38w0d who presents as a transfer for labor/ROM in the setting of maternal genetic syndrome. Patient denies vaginal bleeding, admits leakage of fluid, denies contractions. Patient denies headache, denies nausea/vomiting, denies RUQ pain, denies visual abnormalities. Endorses normal movement. PAST OBSTETRIC HISTORY OB History Para Term AB Living 3 1 1 0 1 1 SAB TAB Ectopic Multiple Live Births 1 0 0 0 1 # Outcome Date GA Lbr Dontae/2nd Weight Sex Delivery Anes PTL Lv 3 Current 2 Term 12/14/18 38w4d 2890 g M VAGINAL EPI SHAY 1 SAB 06/25/15 PAST MEDICAL HISTORY Problem list: Patient Active Problem List Diagnosis Date Noted ROM (rupture of membranes), premature 08/14/2020 Obesity (BMI 30-39.9) 08/14/2020 Anemia of mother in , antepartum 08/03/2020 Heartburn in 06/26/2020 epistaxis 04/28/2020 Supervision of high-risk 03/02/2020 Multiparity 03/02/2020 History of miscarriage 03/02/2020 Generalized anxiety disorder 01/17/2020 Depression during 01/17/2020 Nausea and vomiting during 01/17/2020 38 weeks gestation of 10/13/2018 History of cleft palate 04/23/2018 Stickler's syndrome 04/23/2018 Operations: Past Surgical History: Procedure Laterality Date BMT HARV/TRANSPL 28D PKG CLEFT PALATE REPAIR FLUID/AIR EXCHANGE 04/28/2011 Surgeon:JEFFERY COLBY; Location:[facility] OR LOCATION MYRINGOTOMY PARS PLANA VITRECTOMY 04/28/2011 Surgeon:JEFFERY COLBY; Location:[facility] OR LUPILLO TONGUE TO LIP SURGERY 2008 TRACHEOSTOMY Past Medical History: Diagnosis Date Abnormal uterine bleeding 2019 Anemia 2019 with previous Anxiety ongoing, not currently seeing MD not currently on medication. 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 Depression not currently seeing MD, controlled by patient Menstrual disorder 2019 Sensorineural hearing loss Simple ovarian cyst STD (sexually transmitted disease) chlamydia Stickler's syndrome Visual impairment CURRENT HEALTH STATUS Medications: Current Facility-Administered Medications Medication Dose Route Frequency Last Rate Last Dose D5W-LR IV infusion 1,000 mL 1,000 mL IV Infusion CONTINUOUS 125 mL/hr at 08/14/20 0526 1,000 mLat 08/14/20 0526 FENTanyl PF (SUBLIMAZE (PF)) injection 100 mcg 100 mcg Slow IV Push Q1HPRN 100 mcg at 08/14/20 0617 lactated ringers IV infusion 500 mL 500 mL IV Infusion PRN - SEE INSTRUCTIONS lidocaine 1% (PF) (XYLOCAINE) injection 0.3 mL 0.3 mL Infiltration PRN - SEE INSTRUCTIONS lidocaine 1% (XYLOCAINE) 10 mg/mL (1 %) injection 30 mL 30 mL Infiltration PRN - SEE INSTRUCTIONS LR 1000 mL + oxytocin 20 units IV Solution 2-40 jp-units/min IV Infusion TITRATE Stopped at 08/14/20 0740 proMETHazine (PHENERGAN) 25 mg in NaCl 0.9% (NS) 50 mL piggyback 25 mg IV Piggyback Q4HPRN 25mg at 08/14/20 0618 sodium citrate-citric acid (BICITRA) 500-334 mg/5 mL solution 30 mL 30 mL Oral PRE-PROCEDURE ONCE sodium citrate-citric acid (BICITRA) 500-334 mg/5 mL solution 30 mL 30 mL Oral PRE-PROCEDURE ONCE Allergies and drug reactions: Cefzil [cefprozil] HOME MEDICATIONS Medications Prior to Admission Medication Sig Dispense Refill Last Dose ferrous sulfate 325 mg (65 mg iron) tablet Take 1 tablet by mouth 2 (two) times daily. 60 tablet3 08/13/2020 ascorbic acid, vitamin C, 500 mg tablet Take 1 tablet by mouth 3 (three) times daily. 90 tablet 2 SERTraline (ZOLOFT) 50 mg tablet Take 1 tablet by mouth daily. 30 tablet 4 proMETHazine 25 mg tablet Take 1 tablet by mouth every 6 (six) hours as needed for Nausea and Vomiting (N/V). 30 tablet 0 SOCIAL HISTORY Tobacco History: Social History Tobacco Use Smoking Status Never Smoker Smokeless Tobacco Never Used Drug History: Social History Substance and Sexual Activity Drug Use No Alcohol History: Social History Substance and Sexual Activity Alcohol Use No Alcohol/week: 0.0 standard drinks FAMILY HISTORY Family History Problem Relation Age of Onset Cancer Mother ovarian, cervical, and breast Cancer Maternal Grandmother throat cancer Hypertension Maternal Grandmother No Significant Medical Problems Sister Cancer Maternal Aunt breast cancer No Significant Medical Problems Maternal Uncle Cancer Maternal Aunt colon cancer REVIEW OF SYSTEMS General: negative Skin: negative HEENT: negative Neck: negative HEME: negative Resp: negative Cardio: negative GI: negative : negative Endo: negative Neuro: negative Back: negative LATISHA: negative Psych: negative VITAL SIGNS BP: (98-129)/(52-85) Temp: [36.7 C (98 F)-37.2 C (98.9 F)] Temp source: Oral (08/14 0800) Pulse: [75-114] Resp: [17-18] SpO2: [97 %-100 %] Height: [165.1 cm (5' 5")] Weight: [83.7 kg (184 lb 8 oz)] BMI (calculated): [30.7] PHYSICAL EXAMINATIONS General: patient alert and in no acute distress HEENT: symmetric, negative for masses Lungs: unlabored breathing Cardiology: peripheral pulses intact and regular Abdomen: soft, non-tender, non-distended, no liver, spleen or abnormal masses palpated and Gravid Extremities: no clubbing, cyanosis, or edema Neuro: patient moving all extremities, no facial droop : SVE 50/-3 REVIEW OF LABORATORY, PATHOLOGY, AND RADIOLOGY DATA Lab results: Type & Screen Lab Results Component Value Date/Time IABORH O Positive 08/14/2020 05:20 AM IAT Negative 08/14/2020 05:20 AM Serologies Lab Results Component Value Date/Time VZVIGG Positive 01/02/2020 10:59 AM HIVMULTIPLEX Non-reactive 10/18/2018 03:38 PM RUBG Equivocal 01/02/2020 10:59 AM RUBG Equivoc (A) 11/06/2014 02:12 PM SYPIGG Non-reactive 06/12/2020 10:25 AM SYPIGG Nonreactive 04/23/2018 03:41 PM HBSAG Negative 01/02/2020 10:59 AM HBSAG 0.05 01/02/2020 10:59 AM Chlamydia Lab Results Component Value Date/Time VCAA Negative 07/31/2020 01:03 PM VCAA NEGATIVE 11/06/2014 02:12 PM Group B Strep Lab Results Component Value Date/Time CGB Negative 07/31/2020 01:03 PM GTT Lab Results Component Value Date/Time [id number] 109 (L) 06/01/2020 09:50 AM CBC Lab Results Component Value Date/Time HGB 9.8 (L) 08/14/2020 05:24 AM HGB 13.3 01/06/2015 05:05 PM HCT 31.7 (L) 08/14/2020 05:24 AM HCT 40.2 01/06/2015 05:05 PM PLT 285 08/14/2020 05:24 AM PLT 404 (H) 01/06/2015 05:05 PM Active Hospital Problems Diagnosis Date Noted ROM (rupture of membranes), premature 08/14/2020 Obesity (BMI 30-39.9) 08/14/2020 Anemia of mother in , antepartum 08/03/2020 Depression during 01/17/2020 Generalized anxiety disorder 01/17/2020 38 weeks gestation of 10/13/2018 Stickler's syndrome 04/23/2018 Resolved Hospital Problems No resolved problems to display. Present on Admission: ROM (rupture of membranes), premature Anemia of mother in , antepartum Depression during Generalized anxiety disorder ASSESSMENT AND PLAN Maricel Nur is a 24 year old at 38w0d by u(8) who presents as a transfer for PROM in the setting of maternal genetic syndrome. PROM - Dx at OSH - SVE on admission /-3 - Plan: Will start pitocin. Pt desires epidural Stickler syndrome - S/p cleft palate correction - Echo 06/2018: LVEF 55-60%, trace mitral regurgitation - S/p genetic counseling - Has one son affected by Stickler syndrome - Normal detailed US and echo - Has been evaluated by anesthesia MPDPS - Consents signed 06/12 - Desires, see separate counseling note Anxiety/depression - Not on meds - Reports mood stable, denies SI/HI COVID-19 SCREEN: Lab Results Component Value Date/Time COVID19 Not Detected 08/14/2020 04:21 AM Antepartum course reviewed - 1 h 109, sero negative, Req, VZVimmune, O positive/IAT negative, GBS negative, Pap NILM 01/2019 - H/H, plt: 9.8 / 31.7, 285 on 08/14 - [facility] Fetus - Presentation on admission: cephalic - Posterior placenta - EFW: 3485 g by BSUS - FHT reactive and reassuring - Normal anatomy scan D/w Dr. Trey Snider MD Associated attestation - Vonnie Kearney MD - 08/15/2020 7:33 AM CDT Present and participated in the decision making and admission assessment and plan for delivery. Agree with the resident note. 38 weeks Active labor Stickler Edel Gonzalez MD - 08/14/2020 7:45 AM CDT TRIAGE HISTORY & PHYSICAL IDENTIFYING DATA Maricel Nur is 24 year old, /White, 38w0d, female with GINA 08/28/2020, by Ultrasound. : 1995 Primary Care Physician: Mally Henry CHIEF COMPLAINT LOF HISTORY OF PRESENT ILLNESS Maricel Nur is a 24 year old female @ 38w0d presented for LOF. +FM. No VB or CTX. No pre-eclampsia sx or other complaints. PAST OBSTETRIC HISTORY OB History Para Term AB Living 3 1 1 0 1 1 SAB TAB Ectopic Multiple Live Births 1 0 0 0 1 # Outcome Date GA Lbr Dontae/2nd Weight Sex Delivery Anes PTL Lv 3 Current 2 Term 12/14/18 38w4d 2890 g M VAGINAL EPI SHAY 1 SAB 06/25/15 PAST MEDICAL HISTORY Problem list: Patient Active Problem List Diagnosis Date Noted ROM (rupture of membranes), premature 08/14/2020 Anemia of mother in , antepartum 08/03/2020 Heartburn in 06/26/2020 epistaxis 04/28/2020 Supervision of high-risk 03/02/2020 Multiparity 03/02/2020 History of miscarriage 03/02/2020 Generalized anxiety disorder 01/17/2020 Depression during 01/17/2020 Nausea and vomiting during 01/17/2020 History of cleft palate 04/23/2018 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 Depression not currently seeing MD, controlled by patient Menstrual disorder 2019 Sensorineural hearing loss Simple ovarian cyst STD (sexually transmitted disease) chlamydia Stickler's syndrome Visual impairment CURRENT HEALTH STATUS Medications: Current Facility-Administered Medications Medication Dose Route Frequency Last Rate Last Dose D5W-LR IV infusion 1,000 mL 1,000 mL IV Infusion CONTINUOUS 125 mL/hr at 08/14/20 0526 1,000 mLat 08/14/20 0526 FENTanyl PF (SUBLIMAZE (PF)) injection 100 mcg 100 mcg Slow IV Push Q1HPRN 100 mcg at 08/14/20 0617 lactated ringers IV infusion 500 mL 500 mL IV Infusion PRN - SEE INSTRUCTIONS lidocaine 1% (PF) (XYLOCAINE) injection 0.3 mL 0.3 mL Infiltration PRN - SEE INSTRUCTIONS lidocaine 1% (XYLOCAINE) 10 mg/mL (1 %) injection 30 mL 30 mL Infiltration PRN - SEE INSTRUCTIONS LR 1000 mL + oxytocin 20 units IV Solution 2-40 jp-units/min IV Infusion TITRATE 12 mL/hr at1 0630 4 jp-units/min at 08/14/20 0630 proMETHazine (PHENERGAN) 25 mg in NaCl 0.9% (NS) 50 mL piggyback 25 mg IV Piggyback Q4HPRN 25mg at 08/14/20 0618 sodium citrate-citric acid (BICITRA) 500-334 mg/5 mL solution 30 mL 30 mL Oral PRE-PROCEDURE ONCE sodium citrate-citric acid (BICITRA) 500-334 mg/5 mL solution 30 mL 30 mL Oral PRE-PROCEDURE ONCE Allergies and drug reactions: Cefzil [cefprozil] HOME MEDICATIONS Medications Prior to Admission Medication Sig Dispense Refill Last Dose ferrous sulfate 325 mg (65 mg iron) tablet Take 1 tablet by mouth 2 (two) times daily. 60 tablet3 08/13/2020 ascorbic acid, vitamin C, 500 mg tablet Take 1 tablet by mouth 3 (three) times daily. 90 tablet 2 SERTraline (ZOLOFT) 50 mg tablet Take 1 tablet by mouth daily. 30 tablet 4 proMETHazine 25 mg tablet Take 1 tablet by mouth every 6 (six) hours as needed for Nausea and Vomiting (N/V). 30 tablet 0 SOCIAL HISTORY Tobacco History: Social History Tobacco Use Smoking Status Never Smoker Smokeless Tobacco Never Used Drug History: Social History Substance and Sexual Activity Drug Use No Alcohol History: Social History Substance and Sexual Activity Alcohol Use No Alcohol/week: 0.0 standard drinks FAMILY HISTORY Family History Problem Relation Age of Onset Cancer Mother ovarian, cervical, and breast Cancer Maternal Grandmother throat cancer Hypertension Maternal Grandmother No Significant Medical Problems Sister Cancer Maternal Aunt breast cancer No Significant Medical Problems Maternal Uncle Cancer Maternal Aunt colon cancer REVIEW OF SYSTEMS General: negative Constitutional: negative Eyes: negative ENT/Mouth: negative Cardiovascular: negative Respiratory: negative Gastrointestinal:negative Genitourinary: negative Musculoskeletal: negative Skin/breast: negative Neurological: negative Psychiatric: negative Endocrine: negative Hemat/Lymph: negative Allergic/Immuno:none VITAL SIGNS BP: (98-124)/(59-77) Temp: [36.7 C (98 F)-37.2 C (98.9 F)] Temp source: Oral (08/14 0700) Pulse: [75-114] Resp: [17-18] SpO2: [97 %-100 %] Height: [165.1 cm (5' 5")] Weight: [83.7 kg (184 lb 8 oz)] BMI (calculated): [30.7] PHYSICAL EXAMINATIONS Gen: alert and oriented, well appearing, no distress CV: RRR, normal S1/S2, no m/r/g Resp: normal work of breathing, lungs CTAB Abd: gravid, soft, NTTP Ext: no calf tenderness or edema : SVE /3 REVIEW OF LABORATORY, PATHOLOGY, AND RADIOLOGY DATA Lab results: Type & Screen HIV Hep B Syphilis Chlamydia ABO & RH Date Value Ref Range Status 08/14/2020 O Positive Final Comment: Performed at [facility] Laboratory [facility] [address] [place] [address] Toll Free: [phone] CLIA No. [id number] HIV Ag-Ab Multiplex Date Value Ref Range Status 10/18/2018 Non-reactive Non-reactive Final No components found for: HBSHBSAG Syphilis IgG/IgM Date Value Ref Range Status 06/12/2020 Non-reactive Non-reactive Final C. trachomatis Nucleic Acid Date Value Ref Range Status 07/31/2020 Negative Negative Final IAT Date Value Ref Range Status 08/14/2020 Negative Final Comment: Performed at [facility] [address] [place], [place] [id number] Toll Free: [phone] CLIA No. [id number] Varicella Rubella Glucose Group B Strep CBC VZV IgG antibody Date Value Ref Range Status 01/02/2020 Positive Negative Final Rubella screen IgG Date Value Ref Range Status 01/02/2020 Equivocal Negative Final GLUC 1 HR Date Value Ref Range Status 06/01/2020 109 (L) 120 - 170 mg/dL Final No results found for: CGBS HGB Date Value Ref Range Status 08/14/2020 9.8 (L) 11.6 - 15.0 g/dL Final HCT Date Value Ref Range Status 08/14/2020 31.7 (L) 35.7 - 45.2 % Final PLT Date Value Ref Range Status 08/14/2020 285 166 - 358 10*3/L Final Active Hospital Problems Diagnosis Date Noted ROM (rupture of membranes), premature 08/14/2020 Resolved Hospital Problems No resolved problems to display. Present on Admission: ROM (rupture of membranes), premature ASSESSMENT AND PLAN Maricel Nur is a 24 year old at 38w0d who presents for LOF. PROM - SVE 50/-3. Strip reactive and reassuring. - Will give a dose of terb for transfer Genetic conditions - strong family history of genetic disorder - patient with Stickler syndrome/Efrain-Wai syndrome --> discuss with patient again that she is high risk and should be delivered at a tertiary care center. Patient agrees with the transfer. Spoke with Dr. Estela Sellers, L&D faculty, who has accepted the transfer. - normal anatomy and echo by MFM US - baby to be evaluated by Pedi for possible genetic syndromes care with [facility], see EMR for more details Edel Carballo MD 08/14/2020 8:12 AM documented in this encounter Miscellaneous Notes Note - Tamia Boland RN - 08/16/2020 10:50 AM CST This note was copied from a baby's chart. Assessment (most recent) Assessment - 08/16/20 1050 General Information Visit Follow-up all formula fed. follow up for pumping questions Infant Oral Assessment Infant location Mother Baby Unit ENT consult recommended -- explained to Mom if feeding difficulties diiscuss with machine rigger or contact [facility] Program Therapist Observation Pumping No. Mom reports did not pump last night due to being alone and having pain. Has Medela breastpump at home. Follow up WIC;[facility] warmline Recommended Feeding Plan Recommended feeding plan Pump 8-12 times/24 hours including at night. to protect supply if intention is to breastfeed or give breastmilk to baby. Tamia Boland RN, IBCLC are Plan - Marie Handley RN - 08/16/2020 10:16 AM JUMPBASTING FACING BASTER Problem: Intrapartum process (including labor pain) Goal: Absence of or reduction of complications of labor Outcome: Adequate for discharge Goal: Able to cope with pain Outcome: Adequate for discharge Goal: Adequate to move to next level of care Outcome: Adequate for discharge Goal: Reduction in pain sensation Outcome: Adequate for discharge Problem: Discharge Planning - Goal: Absence of venous thromboembolism Outcome: Adequate for discharge Goal: Adequate for discharge Outcome: Adequate for discharge Goal: Mood stable Outcome: Adequate for discharge Problem: Pain Goal: Control of pain at or below patient's documented comfort goal Outcome: Adequate for discharge Goal: Reduction in pain sensation Outcome: Adequate for discharge actation Note - Tamia Boland RN - 08/15/2020 3:15 PM CDT This note was copied from a baby's chart. Assessment (most recent) Assessment - 08/15/20 1515 General Information Visit Initial Mom's age (years) 24 years Ocean Forwarder Used N/A Gestational age 38 weeks 3 Parity 2 Living Children 2 Feeding plan Breast and Formula Breastfeed previously No Reports 1st baby had problem with tongue and did not breastfeed. Used pump previously Yes Duration (weeks) 4 weeks plans Undecided Breast Pump Has Breast Pump Electric Medela Delivery method Infant Oral Assessment Oral assessment New assessment Date of 08/14/20 Time of 194 location Mother Baby Unit Chin Recessed chin slightly Palate assessment Normal Tongue assessment Sublingual frenulum;Elastic;Thin Restricted tongue motion observed Able to strip gloved finger;Able to cup finger breasks suction suckling on gloved finger Upper lip assessment Normal;Can flange Breast Assessment Breast Assessment Initial Symmetry Symmetrical Size M (B-C) Shape Rounded Other Soft Nipple & Areola Assessment Left Areola Pliable Right Areola Pliable Left Nipple Colostrum visible;Intact;Everted Right Nipple Colostrum visible;Intact;Everted Literature Resources Resources Understanding Mother and Baby Care;[place] channel Education Benefits of breastmilk;Hand expression;Pump frequency;Storage of expressed breastmilk;Cleaning of pump parts;Lactogenesis Program Therapist Observation Pumping Yes initiated at this time -- Mom reports would like to try to breastfeed. Baby just finished formula feeding. Instructed to pump if baby is not latching and desire is to breastfeed. Interventions Pump start (massage, compression, expression) Follow up Follow up in hospital Recommended Feeding Plan Recommended feeding plan On-demand , 8-12 times in 24 hours not to exceed 6 hours between feeds;Mother choosing to supplement with formula after breastfeeds Tamia Boland RN, IBCLC perative Note - Julisa Rivera MD - 08/15/2020 8:50 AM CDTPOSTPARTUM TUBAL LIGATION Date of Service: 08/15/2020 I counseled the patient regarding incentives, risks, benefits and alternatives of Bilateral Tubal Ligation including: risk of infection, bleeding, need for transfusion of blood/blood products, injury to ureter, bladder, bowel with possible further surgery, stint, catheterization or colostomy to repair. The permanence of this procedure and risk of regret in 1 in 3 women were discussed. tubal ligation failure rate is 0.75% and higher in women younger than 30 years old. There is an increased risk for ectopic and the need to seek medical attention should failure of tubal ligation occur. Alternatives discussed include: Oral Contraceptive Agents, Intrauterine Device, Depo Provera, Ring, Patch, Condoms/foam, interval bilateral tubal ligation, or vasectomy of partner. All questions answered, and patient expressed her desire to proceed with bilateral tubal ligation surgery. The patient was taken to the operating room for tubal ligation. Primary indication - Patient desires permanent sterilization Surgeon: Julisa Rivera MD Concession Supervisor Surgeon (1): Maricel Clark MD OB Faculty: Shraddha Osuna MD Specimens Sent to Pathology: Bilateral tubal segments Complications: none Estimated Blood Loss: 10 mL Patient Status: Patient in stable condition and taken to recovery room Description of Findings: Normal uterine contour, normal bilateral fallopian tubes, normal bilateralovaries After arrival to the operating room, she was placed in supine position after administration of spinal anesthesia. Two Allis clamps were used to grasp the skin and a transverse infraumbilical incisionwas made through the skin with a #10 scalpel. The incision extended sharply with scapel with assistance of Allis clamps through the subcutaneous tissue to level of fascia. The fascia was grasped withEllis clamps and entered into with #10 scalpel. The incision through the fascia was extended with scalpel. The peritoneum was entered with fascia incision. The skin incision was retracted with Appendicle retractor and a a digit was used to sweep the omentum and/to bowel out of field. The right fallopian tube was visualized after retrieved out of skin incision with rip machine operator's finger. The fallopian tube was grasped with [place] forceps and followed out To distal end until the fimbria was visualized. A Toby forcep was replaced at midportion of fallopian tube. The fallopian tube was ligated a nd resected with Modified [place] technique - [place] clamp was placed on fallopian tube and placed on gentle traction to create a loop. Two 0-plan gut sutures were used to ligate this loop and metzenbaum scissor was used to perforate the mesosalpinx bluntly. Each ligated portion of the tube was then transected individually. The transected ends of fallopian tube were examined to insuring the presence of fallopian lumen and good hemeostasis. The fallopian tube was replaced into abdomen. The left fallopian tube was visualized after retrieved out of skin incision with rip machine operator's finger. The fallopian tube was grasped with [place] forceps and followed out to distal end until the fimbria was visualized. A [place] forcep was placed at midportion of fallopian tube. The fallopian tube was ligated with 0-plain gut sutures times two with Modified [place] technique - [place] clamp was placed on fallopian tube and placed on gentle traction to create a loop. Two 0-plan gut sutures were used to ligate this loop and metzenbaum scissor was used to perforate the mesosalpinx bluntly. Each ligated portion of the tube was then transected individually. After insuring good hemeostasis of the tr ansected ends and the presence of fallopian lumen, the fallopian tube was replaced in the abdomen. The fascia was re approximated with running 0-vicryl sutures with CT-1 needle. The skin was re approximated with running subcutaneous 2-0 vicryl sutures with PS-1 needle. Steri strips dressing was placed. Condition of Patient after Surgery: Patient tolerated the procedure well and was taken to the operating room in good condition. Other Procedure(s) Performed: None Julisa Rivera MD Associated attestation - Shraddha Osuna MD - 08/15/2020 1:46 PM CDTPost- sterilization procedure performed under my supervision. Both fallopian tubes were identified and bilateral tubal interruption performed using modified bomeroy's technique. I was present in the OR.Care Plan - Marsha Watt RN - 08/14/2020 5:05 PM CDT Problem: Intrapartum process (including labor pain) Goal: Absence of or reduction of complications of labor Outcome: Progressing as expected Goal: Able to cope with pain Outcome: Progressing as expected Goal: Adequate to move to next level of care Outcome: Progressing as expected Goal: Reduction in pain sensation Outcome: Progressing as expected Intrapartum - Pati Snider MD - 08/14/2020 4:26 PM CDTIntrapartum Progress Note 08/14/2020 4:26 PM Subjective: Patient has no complaints Objective: Vitals last 24 hours: Temp: [36.6 C (97.8 F)-37.2 C (98.9 F)] 36.6 C (97.8 F) Pulse: [69-114] 86 Resp: [16-18] 17 BP: (95-131)/(34-89) 118/67 Intake/Output : No intake/output data recorded. No intake/output data recorded. Assessment Active movement: Yes Mode: EFM Uterine Activity: Mode: [place] Contractions (number / 10 minute): adj Contraction duration (seconds): 90 Resting tone: Soft;Palpation Membrane Status Membrane status: Spontaneous Rupture date: 08/14/20 Rupture time: 0200 Amniotic fluid color: Clear;Bloody Cervical Exam 4 / 50 % / -3 Assessment/Plan: Maricel Nur is a 24 year old at 38w0d OB Assessment: IOL, CHRISTIANNES OB Plan: Pit@__ Additional Comments/Detail: IUPC and FSE placed Pati Snider MD documented in this encounter Plan of Treatment Date Type Specialty Care Team Description 09/07/2020 Routine Visit OB Satellites Marcello Gil, DIRECTOR OF RESPIRATORY THERAPY [address] [id number] [phone] Name Type Priority Associated Diagnoses Date/Ti me LAB ONLY COVID LAB Routine 08/14/2020 4 :21 AM INTERPRETATION CDT SURGICAL PATHOLOGY EXAM LAB STAT 07/18 9:13 AM CDT Name Type Priority Associated Diagnoses Order S chedule LAB ONLY COVID LAB Routine ONCE for 1 Oc currences INTERPRETATION starting 07/18 until 0 SURGICAL PATHOLOGY EXAM LAB Routine Rele ase Upon Ordering for 1 Occurrenc es starting 2019 Health Maintenance Due Date Last Done Comments [...] Name Priority Date/Time Associated Diagnosis Comme nts CBC WITH DIFF Routine 08/15/2020 4:11 AM Results for this CDT procedure are i n the results section. VENOUS CORD GAS VEENA 08/14/2020 7:55 PM Resul ts for this CDT procedure are i n the results section. ARTERIAL CORD GAS VEENA 08/14/2020 7:55 PM Res ults for this CDT procedure are i n the results section. HIV 1/2 AG-AB WITH STAT 08/14/2020 5:24 AM Re sults for this REFLEX CDT procedure are i n the results section. ADC OR ISA ONLY VEENA 08/14/2020 5:24 AM R esults for this - RPR CDT procedure are i n the results section. HEPATITIS B SURFACE VEENA 08/14/2020 5:24 AM R esults for this ANTIGEN CDT procedure are i n the results section. CBC WITH DIFF VEENA 08/14/2020 5:24 AM Results for this CDT procedure are i n the results section. RHO (D) IMMUNE Routine 08/14/2020 5:20 AM Result s for this GLOBULIN CDT procedure are i n the results section. HB ABO GROUPING VEENA 08/14/2020 5:20 AM Resul ts for this CDT procedure are i n the results section. COVID-19 (ID NOW Routine 08/14/2020 4:21 AM Resu lts for this RAPID TESTING) CDT procedure are in the results section. ADC ONLY - FERN STAT 08/14/2020 4:05 AM Resul ts for this TEST CDT procedure are i n the results section. documented in this encounter Results CBC with Differential (08/15/2020 4:11 AM CDT) Pathologist Sig nature WBC 17.29 (H) 4.30 - 11.10 [facility] 10*3/L SERVICES RBC 3.98 3.93 - 5.25 [facility] 10*6/L SERVICES HGB 10.4 (L) 11.6 - 15.0 [facility] g/dL SERVICES HCT 32.9 (L) 35.7 - 45.2 % [facility] MCV 82.7 80.6 - 95.5 fL [facility] MCH 26.1 25.9 - 32.8 pg [facility] MCHC 31.6 31.6 - 35.1 [facility] g/dL SERVICES RDW-SD 42.4 39.0 - 49.9 fL [facility] RDW-CV 14.8 12.0 - 15.5 % [facility] PLT 246 166 - 358 [facility] 10*3/L SERVICES MPV 11.0 9.5 - 12.9 fL [facility] SERVICES NRBC/100 WBC 0.0 0.0 - 10.0 /100 [facility] WBCs SERVICES NRBC x10^3 <0.01 10*3/L [facility] SERVICES GRAN MAT (NEUT) % 76.2 % [facility] IMM GRAN % 1.30 % [facility] LYMPH % 13.2 % [facility] MONO % 8.2 % [facility] EOS % 0.8 % [facility] BASO % 0.3 % [facility] GRAN MAT x10^3(ANC) 13.18 (H) 1.88 - 7.09 [facility] 10*3/uL SERVICES IMM GRAN x10^3 0.23 (H) 0.00 - 0.06 [facility] 10*3/uL SERVICES LYMPH x10^3 2.28 1.32 - 3.29 [facility] 10*3/uL SERVICES MONO x10^3 1.42 (H) 0.33 - 0.92 [facility] 10*3/uL SERVICES EOS x10^3 0.13 0.03 - 0.39 [facility] 10*3/uL SERVICES BASO x10^3 0.05 0.01 - 0.07 [facility] 10*3/uL SERVICES Specimen Blood - ARM, LEFT Performing Organization Address City/[facility]/Zipcode Phone Number [facility] CLIA: [id number] [place] [address] [place] [address] ARTERIAL CORD GAS (08/14/2020 7:55 PM CDT) Pathologist Sig nature BASE EXCESS, CORD -2.9 mEq/L [facility] AC PH, CORD (BEAKER) 7.30 7.18 - 7.38 [facility] PC02, CORD 50 32 - 66 mmHg [facility] PO2, CORD 21 10 - 30 mmHg [facility] BICARBONATE, CORD 24 17 - 27 mEq/L [facility] Specimen Blood - VENOUS Performing Organization Address City/[facility] Phone Number [facility] CLIA: [id number] [place] [address] [place] [address] VENOUS CORD GAS (08/14/2020 7:55 PM CDT) VENOUS BASE -1.9 mEq/L [facility] EXCESS, CORD SERVICES VENOUS PH, CORD 7.36 7.25 - 7.45 [facility] VENOUS PC02, CORD 43 27 - 49 mmHg [facility] VENOUS PO2, CORD 27 17 - 41 mmHg [facility] VENOUS 24Comment: 12 - 29 mEq/L [facility] BICARBONATE, CORD QUES SERVICES Specimen Blood - VENOUS Performing Organization Address City/[facility] Phone Number [facility] CLIA: [id number] [place] [address] [place] [address] HIV 1/2 AG-AB WITH REFLEX (08/14/2020 5:24 AM CDT) Pathologist Sig nature HIV 1/2 Ag-Ab with Negative Negative [facility] Reflex HOSPITAL LABORATORY HIV Semi-quantitative 0.15 [facility] Specimen Blood - ARM, RIGHT Narrative Performed At Non-reactive for HIV-1 antigen and HIV-1/HIV-2 [facility]OR[facility]ORY antibodies. No laboratory evidence of HIV infection. Repeat in 2-4 weeks if acute HIV infection is suspected. Performing Organization Address City/State/Zipcode Phone Number [facility] CLIA: [id number] [place] [address] CBC with Differential (08/14/2020 5:24 AM CDT) Pathologist Sig nature WBC 16.86 (H) 4.30 - 11.10 [facility] 10*3/L [facility] RBC 3.85 (L) 3.93 - 5.25 [facility] 10*6/L [facility] HGB 9.8 (L) 11.6 - 15.0 [facility] g/dL [facility] HCT 31.7 (L) 35.7 - 45.2 % [facility] MCV 82.3 80.6 - 95.5 fL [facility] MCH 25.5 (L) 25.9 - 32.8 pg [facility] MCHC 30.9 (L) 31.6 - 35.1 [facility] g/dL [facility] RDW-SD 41.6 39.0 - 49.9 fL [facility] RDW-CV 14.6 12.0 - 15.5 % [facility]OR[facility] PLT 285 166 - 358 [facility] 10*3/L [facility] MPV 10.6 9.5 - 12.9 fL [facility] NRBC/100 WBC 0.0 0.0 - 10.0 /100 [facility] WBCs [facility] NRBC x10^3 <0.01 10*3/L [facility] GRAN MAT (NEUT) % 73.3 % [facility] IMM GRAN % 2.20 % [facility] LYMPH % 15.2 % [facility] MONO % 7.6 % [facility] EOS % 1.2 % [facility] BASO % 0.5 % [facility] GRAN MAT x10^3(ANC) 12.36 (H) 1.88 - 7.09 [facility] 10*3/uL [facility] IMM GRAN x10^3 0.37 (H) 0.00 - 0.06 [facility] 10*3/uL [facility]OSPITAL LABORATORY LYMPH x10^3 2.57 1.32 - 3.29 [facility] 10*3/uL [facility] MONO x10^3 1.28 (H) 0.33 - 0.92 [facility] 10*3/uL [facility] EOS x10^3 0.20 0.03 - 0.39 [facility] 103/uL [facility] BASO x10^3 0.08 (H) 0.01 - 0.[address]3/uL [facility] Specimen Blood - ARM, RIGHT Performing Organization Address City/[facility]/Zipcode Phone Number [facility] CLIA: [id number] [place] [address] [place] [address] ADC OR ISA ONLY - RPR (08/14/2020 5:24 AM CDT) Pathologist Sig nature RPR (Qualitative) Nonreactive Nonreactive [facility] LABORATORY Specimen Blood - ARM, RIGHT Performing Organization Address [facility] Phone Number [facility] CLIA: [id number] [place], [place] [address] LABORATORY [address] [facility] Hepatitis B Surface Antigen (08/14/2020 5:24 AM CDT) Pathologist Sig nature HBsAg Negative Negative [facility] LABORATORY SERVICES HBsAg 0.05 [facility] LABORATORY Semi-Quantitative SERVICES Specimen Blood - ARM, RIGHT Performing Organization Address City/[facility]/Zipcode Phone Number [facility]ORATORY SERVICES CLIA: [id number] [place], [place] [id number] [address] [place] [address] RHO (D) IMMUNE GLOBULIN (08/14/2020 5:20 AM CDT) Pathologist Sig nature RHIG CANDIDATE? No- see comment LAB Comment: Patient is not a candidate for RhIg- Patient is Rh Pos itive. Performed at [facility] [address] [place] [address] Toll Free: [phone] CLIA No. [id number] Specimen Blood - VENOUS Performing Organization Address City/State/Zipcode Phone Number [facility] LAB Type and Screen - ONCE VEENA (08/14/2020 5:20 AM CDT) Pathologist Sig nature ABO & RH O Positive LAB Comment: Performed at [facility] [address] [address] Toll Free: [phone] CLIA No. [id number] IAT Negative LAB Comment: Performed at [facility] [address] [address] Toll Free: [phone] CLIA No. [id number] Specimen Blood - VENOUS Performing Organization Address [facility] Centercode Phone Number BLD LAB COVID-19 (ID NOW RAPID TESTING) (08/14/2020 4:21 AM CDT) SARS-CoV-2 Rapid ID Not Detected Not Detected [facility] LABOR[facility] Specimen Swab - NASOPHARYNGEAL SWAB Narrative Performed At [facility] COVID-19 Assay is an isothermal nucleic [facility] acid amplification test intended for the qualitative detection of nucleic acid from SARS-CoV-2 viral RNA in nasopharyngeal (FRAME TRIMMER) specimens. It is used under Emergency Use Authorization (EUA) by FDA. The limit of detection (LOD) of the assay is 125 Genome Equivalents/mL. A positive result is indicative of the presence of SARS-CoV-2 RNA. Clinical correlation with patient history and other diagnostic information is necessary to determine patient infection status. A negative (Not Detected) result does not preclude SARS-CoV-2 infection. In patients with clinical symptoms and other tests that are consistent with SARS-CoV-2 infection, negative results should be treated as presumptive negative and a new specimen should be tested with alternative PCR molecular test. Invalid: Please collect a new specimen for repeat patient testing if clinically indicated. Performing Organization Address [facility]/Zipcode Phone Number [facility] CLIA: [id number] [place] [address] ADC ONLY - FERN TEST (08/14/2020 4:05 AM CDT) Pathologist Sig nature Fern Test Positive [facility] LABOR[facility] Specimen Fluid - VAGINA Performing Organization Address City/State/Zipcode Phone Number [facility] CLIA: [id number] [place] [address] LABORATORY [address] [facility] documented in this encounter Visit Diagnoses Diagnosis (spontaneous vaginal delivery) - [facility] Normal delivery Rubella non-immune status, antepartum Other specified complication, antepartum Obesity (BMI 30-39.9) Obesity, unspecified Anemia of mother in , antepartu m Anemia, antepartum Depression during Generalized anxiety disorder Stickler's syndrome Other specified congenital anomalies 38 weeks gestation of state, incidental Single live Outcome of delivery, single liveborn S/P tubal ligation Tubal ligation status documented in this encounter Administered Medications Medication Order MAR Action Action Date Dose Rate Site acetaminophen (TYLENOL) tablet Given 08/15/2020 4:35 AM CDT 650 mg 650 mg 650 mg, Oral, Q6HPRN, Starting Mon08/14/20 at 2212, Until Discontinued, Routine, Pain (scale 1-3) docusate calcium (SURFAK) capsule 240 mg Given 08/16/2020 7:34 AM JUMPBASTING FACING BASTER 240 mg 240 mg, Oral, QDAILYPRN, Starting 08/14/20 at 2212, Until Discontinued, Routine, Constipation HYDROcodone-acetaminophen (NORCO 5) 5-325 Given 2019 10:06 PM CDT 2 tablets mg tablet 2 tablet 2 tablet, Oral, Q6HPRN, Starting 08/15/20 at 0950, Until Discontinued, Routine, Pain (scale 7-10) Given 08/15/2020 12:14 PM CDT 2 tablets ibuprofen (IBU) tablet 600 mg Given 08/16/2020 7:34 AM JUMPBASTING FACING BASTER 600 mg 600 mg, Oral, Q6HPRN, Starting Mon08/14/20 at 2212, Until Discontinued, Routine, Pain (scale 4-6) Given 08/15/2020 10:06 PM CDT 600 mg Given 08/15/2020 4:09 PM CDT 600 mg ondansetron (ZOFRAN (PF)) injection 4 mg Given 08/15/2020 9:10 AM CDT 4 mg 4 mg, Slow IV Push, Q8HPRN, Starting Mon08/14/20 at 2212, Until Discontinued, Routine, Nausea and Vomiting (N/V) vitamin w/FA (PRENATABS RX) Given 08/16/2020 7:[address] 1 tablet tablet 1 tablet 1 tablet, Oral, DAILY, First dose on 08/15/20 at 0900, Until Discontinued, Routine Given 08/15/2020 4:08 PM CDT 1 tablet simethicone (GAS RELIEF (SIMETHICONE)) Given 08/15/2020 4:09 PM CDT 160 mg chewable tablet 160 mg 160 mg, Oral, PC+HSPRN, Starting Mon08/14/20 at 2212, Until Discontinued, Routine, Gas Given 08/15/2020 12:14 PM CDT 160 mg Medication Order MAR Action Action Date Dose Rate Site D5W-LR IV infusion 1,000 mL New Bag 08/14/2020 5:26 AM CDT 1,000 mL 125 mL/hr at 125 mL/hr, IV Infusion, CONTINUOUS, Starting Mon08/14/20 at 0500, Until Mon08/14/20 at 2212, Routine diphenhydrAMINE (BENADRYL) injection 25 mg Given 08/14/2020 6:38 PM CDT 25 mg 25 mg, Slow IV Push, ONCE, 1 dose, Mon08/14/20 at 1845, Routine FENTanyl PF (SUBLIMAZE (PF)) injection 100 Given 08/14 6:17 AM CDT 100 mcg mcg 100 mcg, Slow IV Push, Q1HPRN, Starting Mon08/14/20 at 0458, Until Mon08/14/20 at 2212, Routine, Pain (scale 4-6), Pain (scale 7-10) lactated ringers IV infusion 500 New Bag 08/14/2020 1:31 PM C DT 500 mL 999 mL/hr mL at 999 mL/hr, 500 mL, IV Infusion, PRN - SEE INSTRUCTIONS, 1 dose, Starting Mon08/14/20 at 1255, Until Mon08/14/20 at 1331, Routine lactated ringers IV infusion New Bag 08/15/2020 4:56 PM CDT 1,000 mL Righ t Arm IV Infusion, CONTINUOUS PRN, Starting 10/31/20 at 0842, Until 08/15/20 at 1829, Routine, Intra-op New Bag 08/15/2020 8:42 AM CDT LR 1000 mL + oxytocin Rate Change 08/14/2020 5:55 PM 6 jp-unit s/min 18 mL/hr 20 units IV Solution CDT at 6-120 mL/hr, IV Infusion, TITRATE, Starting Mon08/14/20 at 0445, Until Mon08/14/20 at 2212, VEENA Rate Change 08/14/2020 4:30 PM CDT 4 jp-units/min 12 mL/hr New Bag 08/14/2020 3:26 PM CDT 2 jp-units/min 6 mL/hr measles, mumps + rubella Given 08/16/2020 10:57 AM JUMPBASTING FACING BASTER 0.5 mL Right Upper Arm-SC vac (M-M-R II) 1,000-12,500 TCID50/0.5 mL injection 0.5 mL 0.5 mL, Subcutaneous, ONCE, 1 dose, 08/16/20 at 1200, Routine proMETHazine (PHENERGAN) 25 mg in NaCl 0.9% Given 08/14/2020 6:18 AM CDT 25 mg (NS) 50 mL piggyback 25 mg, IV Piggyback, Q4HPRN, Starting Mon08/14/20 at 0458, Until Mon08/14/20 at 2212, 50 mL sodium citrate-citric acid (BICITRA) 500-334 Given 1:31 PM CDT 30 mL mg/5 mL solution 30 mL 30 mL, Oral, PRE-PROCEDURE ONCE, 1 dose, Starting Mon08/14/20 at 1255, Until Mon08/14/20 at 1331, Routine, Surgery/Procedure sodium citrate-citric acid (BICITRA) 500-334 Given 8:32 AM CDT 30 mL mg/5 mL solution 30 mL 30 mL, Oral, ONCE, 1 dose, 08/15/20 at 0830, Routine terbutaline (BRETHINE) Given 08/14/2020 8:11 AM CDT 0.25 mg Left Upper Arm-SC injection 0.25 mg 0.25 mg, Subcutaneous, ONCE, 1 dose, 08/14/20 at 0815, Routine documented in this encounter Additional Health Concerns Infection Onset Date Last Indicated Resolved Time COVID-19 Rule Out 08/14/2020 08/14/2020 08/14/2020 4: 59 AM CDT documented as of this encounter Insurance Payer Benefit Plan / Subscriber ID Effective Phone Address T ype Group Dates [facility] [id number] 2020-Prese [address] Medic aid HEALTH CHOICE - HEALTH CHOICE nt [id number] 1 MANAGED MEDICAID [place], [place] MED[place]ID [phone] [id number] documented as of this encounter Advance Directives Name Relationship Healthcare Agent Relationship Co mmunication Isidra Forbes Grandparent Health Care Agent Donovan Conroy Aunt First [facility] Care Agent (Mobile)
--- OUTSIDE RECORDS SUMMARY | 2020-09-21 06:55 | XMS REPORT | Summary of Care ---
:1995 Author Organization [facility] Address [address] [place] [address] Care Team Providers Name Role Phone Tonie Henry [facility] Primary Care Provider Reason for Visit Reason Comments Rx Concern/Question Encounter Details Date Type Department Care Team Description 08/26/2020 Telephone [facility] Mally Henry, Rx Concern/Question [facility] [address] [facility] [address] [place] [address] [address] [place] [address] [phone] Allergies Active Allergy Reactions Severity Noted Date Comments Cefprozil Hives 12/12/2007 documented as of this encounter (statuses as of 08/26/2020) Medications Medication Sig Dispensed Refills Start Date End Date Status SERTraline (ZOLOFT) 50 Take 1 tablet by 30 tablet 4 01/20/2020 Active mg tabletIndications: mouth daily. Generalized anxiety disorder, Recurrent major depressive disorder, remission status unspecified ferrous sulfate 325 mg Take 1 tablet by 60 tablet 2 08/16/2020 Active (65 mg iron) mouth 2 (two) tabletIndications: times daily. (spontaneous vaginal delivery) acetaminophen 325 mg Take 2 tablets 30 tablet 1 08/17/2020 Active tabletIndications: by mouth every 6 (spontaneous vaginal (six) hours as delivery) needed for Pain (scale 1-3). docusate calcium 240 mg Take 1 capsule 30 capsule 1 08/17/2020 Active capsuleIndications: by mouth once (spontaneous vaginal daily as needed delivery) for Constipation. vitamin w/FA Take 1 tablet by 60 tablet 1 08/17/2020 Active tabletIndications: mouth daily. (spontaneous vaginal delivery) ibuprofen 600 mg Take 1 tablet by 30 tablet 1 08/17/2020 Active tabletIndications: mouth every 6 (spontaneous vaginal (six) hours as delivery) needed for Pain (scale 4-6). 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 Sex Assigned at Date Recorded Not on [...] Telephone Encounter - Thompson Alaniz RN - 08/26/2020 1:16 PM CSTPatient called, requesting release to go back to work. Letter provided. THOMPSON ALANIZ RN 08/26/2020 1:18 PM HOUSE DELIVERY MANAGER Telephone Encounter - Monae Larson - 08/26/2020 10:20 AM CSTMaricel Nur is a 24 year old female Patient requesting to speak with nurse/ provider, have some questions regarding her return to work. Please call patient [phone] (home) HOUSE DELIVERY MANAGER documented in this encounter Plan of Treatment Date Type Specialty Care Team Description 09/07/2020 Routine Visit OB Satellites Marcello Gil, WORKFORCE ADVISOR [address] [address] [phone] Health Maintenance Due Date Last Done Comments [...] / Subscriber ID Effective Phone Address [facility] [id number] 2020-Prese [address]. BOX Medic aid HEALTH CHOICE - HEALTH CHOICE nt [id number] 1 MANAGED MED[place]ID [place] [phone] documented as of this encounter Advance Directives Name Relationship Healthcare Agent Relationship Co mmunication Isidra Forbes Grandparent Health Care Agent Donovan Conroy Aunt First [facility] Health Care Agent (Mobile)
--- OUTSIDE RECORDS SUMMARY | 2020-09-21 06:55 | XMS REPORT | Summary of Care ---
:1995 Author Organization [facility] - Health Address [address] [place] [address] Care Team Providers Name Role Phone Tonie Henry Primary Care Provider Encounter Details Date Type Department Care Team Description 08/14/2020 Orders Only [facility] Doctor Unassigned, No [address] [facility] [place] [address] [address] [place] [address] Allergies Active Allergy Reactions Severity Noted Date Comments Cefprozil Hives 12/12/2007 documented as of this encounter (statuses as of 08/17/2020) Medications Medication Sig Dispensed Refills Start Date [...] as of this encounter (statuses as of 08/17/2020) Active Problems Problem Noted Date S/P tubal [...] as of this encounter (statuses as of 08/17/2020) Resolved Problems Problem Noted Date Resolved Date [...] examination 11/21/2014 08/03/2015 Overview: ICD10 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 Need for HPV vaccination 11/21/2014 08/03/2015 Underweight 11/21/2014 04/08/2016 Retinoschisis, Macular 05/06/2013 11/21/2014 Cataract, Right Eye 05/06/2013 11/21/2014 documented as of this encounter (statuses as of 08/17/2020) Immunizations Name Administration Dates Next Due HPV [...] Description 09/07/2020 Routine Visit OB Satellites Marcello Gil R, NIGHT MANAGER [address] [address] [phone] Health Maintenance Due Date Last Done Comments INFLUENZA VACCINE (#1) 2021 01/02/2020, Postponed from 06/16/2020 08/20/2018 (Refused) Depression Screening 08/06/2021 08/06/2020 PAP SMEAR 01/29/2022 01/29/2019, 04/08/2016 DTaP,Tdap,and Td Vaccines (3 10/18/2028 10/18/2018, - Td) 10/16/2008 HPV VACCINES Completed 05/06/2015, 01/02/2015, 11/06/2014 PNEUMOCOCCAL 0-64 YEARS Aged Out No longe r eligible based COMBINED SERIES on patient's age to complete this to [facility] documented as of this encounter Procedures Procedure Name Priority Date/Time Associated Diagnosis Comme nts L&D VISIT Routine 08/14/2020 12:01 AM CDT (NON-DELIVERED) documented in this encounter Results Not on filedocumented in this encounter Additional Health Concerns Infection Onset Date Last Indicated Resolved Time COVID-19 Rule Out 08/14/2020 08/14/2020 08/14/2020 4: 59 AM CDT documented as of this encounter Insurance Payer Benefit Plan / Subscriber ID Effective Phone Address T e Group [facility] [id number] 2020-Prese [address]O. BOX Medic aid HEALTH CHOICE - HEALTH CHOICE nt [id number] 1 MANAGED MEDICAID [place], [place] [phone] documented as of this encounter Advance Directives Name Relationship Healthcare Agent Relationship Co mmunication Isidra Forbes Grandparent Health Care Agent Donovan Rafiq Aunt First [facility] Health Care Agent (Mobile)
--- OUTSIDE RECORDS SUMMARY | 2020-09-21 06:56 | XMS REPORT | Summary of Care ---
:1995 Author Organization [facility] Address [address] [place] [address] Care Team Providers Name Role Phone Tonie Henry Primary Care Provider Reason for Visit Reason Comments Care (Routine) Status Reason Specialty Diagnoses / Referred By Referred To Procedures Contact Contact New Request OG-OBSTETRICS & Diagnoses (spontaneous vaginal delivery) Sarah Le, GYNECOLOGY / OB Procedures Discharge Follow-Up: Specialty Service OG-OBSTETRICS & GYNECOLOGY; 3 Weeks [facility] [address] [address] Encounter Details Date Type Department Care Team Description 09/07/2020 Routine [facility] RMP- Gianni Gil ostpartum care and Visit Jovanny R, DRY KILN BURNER examination [address] [place] [address] [place] delivery (Primary [facility], [place] Dx) [id number] [phone] Allergies Active Allergy Reactions Severity Noted Date Comments Cefprozil Hives 12/12/2007 documented as of this encounter (statuses as of 09/07/2020) Medications Medication Sig Dispensed Refills Start Date [...] as of this encounter (statuses as of 09/07/2020) Active Problems Problem Noted Date S/P tubal [...] as of this encounter (statuses as of 09/07/2020) Resolved Problems Problem Noted Date Resolved Date [...] examination 11/21/2014 08/03/2015 Overview: ICD10 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 documented as of this encounter Last Filed Vital Signs Vital Sign Reading Time Taken Comments Blood Pressure 103/67 09/07/2020 10:25 AM REVENUE AUDIT CLERK Pulse 61 09/07/2020 10:25 AM REVENUE AUDIT CLERK Temperature 36.8 C (98.3 F) 09/07/2020 10:25 AM REVENUE AUDIT CLERK Respiratory Rate 16 09/07/2020 10:25 AM REVENUE AUDIT CLERK Oxygen Saturation - - Inhaled Oxygen Concentration - - Weight 74.3 kg (163 lb 12.8 oz) 09/07/2020 10:25 AM REVENUE AUDIT CLERK Height 165.1 cm (5' 5") 09/07/2020 10:25 AM REVENUE AUDIT CLERK Body Mass Index 27.26 09/07/2020 10:25 AM REVENUE AUDIT CLERK documented in this encounter Progress Notes Gianni Gil, ELIZABETH - 09/07/2020 10:15 AM CST Chief complaint: Chief Complaint Patient presents with Care HPI The patient is here for a routine PP visit. Patient delivered male infant via on 08/14/2020.She has no complaints today. She states that she is formula feeding her infant, is bonding well, andcoping well with less sleep. She reports that she has no pain, small lochia, and denies all s/s of PP depression. She had BTL for PP contraception. Histories OB History Para Term AB Living 3 2 2 0 1 2 SAB TAB Ectopic Multiple Live Births 1 0 0 0 2 # Outcome Date GA Lbr Dontae/2nd Weight Sex Delivery Anes PTL Lv 3 Term 08/14/20 38w0d 7 lb 8.3 oz (3.41 kg) M NORMAL SPONT EPI N SHAY 2 Term 12/14/18 38w4d 6 lb 5.9 oz (2.89 kg) M VAGINAL EPI SHAY 1 SAB 06/25/15 Past Medical History: Diagnosis Date Abnormal uterine bleeding 2019 Anemia 2019 with previous Anxiety ongoing, not currently seeing MD not currently on medication. 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 Hindu preference Spiritism. Social History Substance and Sexual Activity Sexual Activity Yes Partners: Male control/protection: None Comment: last sexual intercourse 12/29/2019 Labs No new labs Radiology No new radiology. Allergies Maricel is allergic to cefzil [cefprozil]. Medications Maricel has a current medication list which includes the following prescription(s): acetaminophen, docusate calcium, ibuprofen, vitamin w/fa, ferrous sulfate, and sertraline. Review of Systems Constitutional: Negative for activity change, appetite change, fatigue, unexpected weight change, weight gain and weight loss. HENT: Negative for sore throat. Eyes: Negative for visual disturbance. Respiratory: Negative for cough and shortness of breath. Breasts: Negative for discharge, mass, pain and unequal size. Cardiovascular: Negative for chest pain, palpitations and leg swelling. Gastrointestinal: Negative. Negative for abdominal pain, anal bleeding, blood in stool, constipation, diarrhea, nausea, rectal pain and vomiting. Genitourinary: Negative for bladder incontinence, dysuria, urgency, flank pain, vaginal bleeding, vaginal discharge, genital sores, vaginal pain and pelvic pain. Skin: Negative for color change and rash. Neurological: Negative. Negative for dizziness, syncope and headaches. Psychiatric/Behavioral: Negative for confusion, self-injury and sleep disturbance. The patient is not nervous/anxious. Hematological: Negative for cold intolerance and heat intolerance. Endocrine: Negative for hair loss, cold intolerance, heat intolerance, weight gain and weight loss. BP 103/67 (BP Location: Right arm, Patient Position: Sitting, BP CUFF SIZE: Adult Medium) | Pulse 61 | Temp 36.8 C (98.3 F) (Oral) | Resp 16 | Ht 5' 5" (1.651 m) | Wt 163 lb 12.8 oz (74.3 kg)| LMP 11/30/2019 (Approximate) | BMI 27.26 kg/m Pregravid BMI: Could not be calculated Physical Exam Vitals reviewed. Constitutional: She is oriented to person, place, and time. She appears well- developed and well-nourished. Her body habitus is normal. Cardiovascular: Regular rate and rhythm. No peripheral edema present. Pulmonary/Chest: Normal inspiratory effort. Neuro/Psychiatric: Inappropriate mood and affect. She is oriented to person, place, and time. Skin: Skin normal. No lesion, no rash and no ulceration present. Umbilicus incision due to BTL, incision dry and healed Breast: Normal left breast and normal right breast Rectal: normal rectum External genitalia: Normal external genitalia appropriate for age. 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 Covid x12 screening done, screening results are negative. Return to clinic in 3 weeks. Discussed treatment options. Medications as ordered. Reviewed patient instructions and provided printed copy. This visit did not involve counseling and coordination that comprised more than 50% of the visit time. ELIZABETH Peterson 09/07/2020 10:33 AM NUE AUDIT CLERK Ruthann Sifuentes 09/07/2020 10:15 AM CSTPt in clinic today for 3 wk pp visit. 1) Delivery method Vaginal 2) Patient delivered on 08/14/2020 at [place] 3) Patient is currently bottlefeeding 4) Desired BCM: BTL 5) Patient denies pp depression documented in this encounter Plan of Treatment [...] on patient's age to complete this to [facility] documented as of this encounter Results Not on filedocumented in this encounter Visit Diagnoses Diagnosis care and examination immediat kia after delivery - Primary documented in this encounter Insurance Payer Benefit Plan / Subscriber ID Effective Phone Address T e Group Dates [facility] [id number] 2020-Prese [address] Medic aid HEALTH CHOICE - HEALTH CHOICE nt [id number] 1 MANAGED MEDICAID [place], [place] [id number] [id number] 1 documented as of this encounter Advance Directives Name Relationship Healthcare Agent Relationship Co mmunication Isidra Ochoair Grandparent Health Care Agent Donovan Conroy Aunt First Alternate Health Care Agent (Mobile)
[2020-09-21] MEDS ORDERED: MORPHINE 4 MG/ML SYR ONE (07:24)
[2020-09-21] MEDS ORDERED: NA CHLORIDE 0.9% 1,000 ML ONE (07:25)
[2020-09-21] MEDS ORDERED: ONDANSETRON 4 MG/2 ML VIAL ONE (07:25)
[2020-09-21 07:26] LABS: Absolute Lymphocytes (CBC) 2.8 K/uL (0.7-4.9); Basophils % 0.6 % (0-1.3); Lymphocytes % 21.7 % (15.3-44.8); MPV 7.8 fL (7.6-11.3); RBC Red Blood Cell Count 4.99 M/uL (3.86-4.86)
[2020-09-21 07:42] LABS: ALT/SGPT 13 U/L (12-78); AST/SGOT 8 U/L (15-37); Albumin 3.8 g/dL (3.4-5.0); Alkaline Phosphatase 117 U/L (45-117); BUN Blood Urea Nitrogen 14 mg/dL (7-18); Bicarbonate 25 mmol/L (21-32); Bilirubin Direct < 0.1 mg/dL (0-0.2); Bilirubin Total 0.3 mg/dL (0.2-1.0); Glucose Level 123 mg/dL (74-106); Lipase 74 U/L (73-393); Potassium 3.4 mmol/L (3.5-5.1); Protein, Total 7.9 g/dL (6.4-8.2); Sodium Level 141 mmol/L (136-145)
[2020-09-21] MEDS ORDERED: MEPERIDINE HCL 50 MG/ML ONE (08:07)
[2020-09-21] MEDS ORDERED: PROMETHAZINE INJ 25 MG/ML AMP ONE (08:07)
--- NOTE | 2020-09-21 08:23 | RAD REPORT ---
EXAM DESCRIPTION: US - Abdomen Exam Limited - 09/21/2020 7:45 am CLINICAL HISTORY: ABD PAIN COMPARISON: Abdomen Exam Limited dated 05/13/2018 FINDINGS: The gallbladder demonstrates no gallstones. No pericholecystic fluid or gallbladder wall t hickening. The common bile duct is normal measuring 3 mm. The liver demonstrates no findings of intrahepatic biliary dilatation. IMPRESSION: Unremarkable examination.
--- NOTE | 2020-09-21 08:28 | RAD REPORT ---
EXAM DESCRIPTION: CT - Stone Protocol - 09/21/2020 7:30 am CLINICAL HISTORY: Flank pain. ABD PAIN COMPARISON: Abdomen Pelvis W Contrast dated 06/24/2017 TECHNIQUE: Axial images were obtained without oral or IV contrast. Lack of contrast limits solid org an and vascular assessment. The [id number] spans the entirety of the system partially obscuring uppermost abdomen and lung bases. Coronal reformatted images were obtained and reviewed. All CT scans are performed using dose optimization technique as appropriate and may include automated exposure control or mA/KV adjustment according to patient size. FINDINGS: The lower lung rocha are clear. Imaged portions of the liver and spleen show no suspicious findings on non-contrast imaging. The panc reas and adrenal glands are normal. No pathologic lymphadenopathy in the abdomen or pelvis. 5 mm stone is noted distal right ureter resulting mild right hydronephrosis. No left-sided stone or h ydronephrosis seen. No bowel obstruction, free air, free fluid or abscess. Normal appendix noted.5.9 cm left ovarian cyst present, mildly larger than on the comparative 2017 study. No significant bony abnormality. IMPRESSION: 5 mm stone distal right ureter resulting in mild right hydronephrosis. 5.9 cm left ovarian cyst.
[2020-09-21] MEDS ORDERED: TAMSULOSIN 0.4 MG SR CAP ONE (09:04)
[2020-09-21] MEDS ORDERED: MAGNESIUM SULFATE 1 gm IVPB 1 GM/100 ML BAG IV ONE (09:04)
[2020-09-21] MEDS ORDERED: MEPERIDINE HCL 25 MG/ML SYR ONE (09:48)
--- NOTE | 2020-09-21 10:05 | ER ---
Nurse's Notes [facility] Name: Maricel Nur Age: 25 yrs Sex: Female : 1995 Arrival Date: 09/21/2020 Time: 06:51 Bed 13 Private MD: Diagnosis: Calculus of lower urinary tract Presentation: 09/21 07:08 Chief complaint: Patient states: I and having pain where my gallbladder is. It started jb4 last night. Coronavirus screen: Client denies travel out of the [place] in the last 14 days. At this time, the client does not indicate any symptoms associated with coronavirus-19. Ebola Screen: No symptoms or risks identified at this time. Initial Sepsis Screen: Does the patient meet any 2 criteria? No. Patient's initial sepsis screen is negative. Does the patient have a suspected source of infection? No. Patient's initial sepsis screen is negative. Risk Assessment: Do you want to hurt yourself or someone else? Patient reports no desire to harm self or others. Onset of symptoms was September 20, 2020. Transition of care: patient was not received from another setting of care. 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 - Social history:: Smoking status: Patient denies any tobacco usage or history of. Patient/guardian denies using alcohol, street drugs. - Family history:: not pertinent. - Hospitalizations: : No recent hospitalization is reported. Screenin:39 Abuse screen: Denies threats or abuse. Nutritional screening: No deficits noted. tw2 Tuberculosis screening: No symptoms or risk factors identified. Fall Risk None identified. Assessment: 07:08 Reassessment: provider at bedside at this time. tw2 07:15 General: Appears uncomfortable, Behavior is anxious, pt states "just give me a minute, tw2 pt pacing the room in pain at this time, pt encouraged to sit where we can start her iv at this time. 07:17 Pain: Complains of pain in abdomen. Neuro: Level of Consciousness is awake, alert, tw2 obeys commands, Oriented to person, place, time, situation. Cardiovascular: Heart tones S1 S2 Patient's skin is warm and dry. Respiratory: Airway is patent Respiratory effort is even, unlabored, Respiratory pattern is regular, symmetrical, Breath sounds are clear bilaterally. GI: Abdomen is flat, Bowel sounds present X 4 quads. Abd is soft X 4 quads Reports lower abdominal pain, upper abdominal pain, nausea. : No signs and/or symptoms were reported regarding the genitourinary system. EENT: No signs and/or symptoms were reported regarding the EENT system. Derm: No signs and/or symptoms reported regarding the dermatologic system. Musculoskeletal: Range of motion: intact in all extremities. 07:18 Reassessment: pt states "i urinated on myself when i threw up this last time", linens tw2 changed and pt placed in a gown, warm blankets given at this time. 08:33 Reassessment: Patient appears in no apparent distress at this time. Patient and/or tw2 family updated on plan of care and expected duration. Pain level reassessed. Patient is alert, oriented x 3, equal unlabored respirations, skin warm/dry/pink. Patient states feeling better. Patient states symptoms have improved. 09:27 Reassessment: Patient appears in no apparent distress at this time. Patient and/or tw2 family updated on plan of care and expected duration. Pain level reassessed. Patient is alert, oriented x 3, equal unlabored respirations, skin warm/dry/pink. provider at bedside at this time. 10:21 Reassessment: Patient appears in no apparent distress at this time. Patient and/or tw2 family updated on plan of care and expected duration. Pain level reassessed. Patient is alert, oriented x 3, equal unlabored respirations, skin warm/dry/pink. Patient states feeling better. 10:26 Reassessment: Patient appears in no apparent distress at this time. pt states "my tw2 should be here soon with my clothes". Vital Signs: 07:08 BP 131 / 79; Pulse 63; Resp 16; Temp 97.4(TE); Pulse Ox 100% on R/A; Weight 72.57 kg jb4 (R); Height 5 ft. 5 in. (165.10 cm) (R); Pain 10/10; 08:15 BP 137 / 85; Pulse 62; Resp 17; Pulse Ox 96% on R/A; tw2 08:33 BP 104 / 55; Pulse 54; Resp 17; Pulse Ox 99% on R/A; tw2 09:28 BP 121 / 83; Pulse 62; Resp 17; Pulse Ox 100% on R/A; tw2 10:21 BP 99 / 82; Pulse 81; Resp 17; Pulse Ox 97% on R/A; Pain 5/10; tw2 07:08 Body Mass Index 26.63 (72.57 kg, 165.10 cm) jb4 ED Course: 06:51 Patient arrived in ED. ag3 07:05 Rudolph Jain MD is Attending Physician. rn 07:08 Mona Lancaster RN is Primary Nurse. tw2 07:09 Triage completed. jb4 07:10 Arm band placed on right wrist. jb4 07:18 Placed in gown. Bed in low position. Pulse ox on. NIBP on. Warm blanket given. tw2 07:18 Inserted saline lock: 20 gauge in left antecubital area, using aseptic technique. tw2 ,using aseptic technique. by DYLLAN, [facility] Blood collected. 07:27 CT completed. Patient tolerated procedure well. Patient moved to CT via wheelchair. sj Patient taken to ultrasound. 07:31 CT Stone Protocol In Process Unspecified. EDMS 07:45 US Abdomen Limited In Process Unspecified. EDMS 10:25 No provider procedures requiring assistance completed. IV discontinued, intact, tw2 bleeding controlled, No redness/swelling at site. Pressure dressing applied. Administered Medications: 07:19 Drug: Zofran (Ondansetron) 4 mg Route: IVP; Site: left antecubital; tw2 07:50 Follow up: Response: No adverse reaction; Nausea unchanged; Nausea unchanged, provider tw2 notified. 07:21 Drug: morphine 4 mg {Note: RASS 0.} Route: IVP; Site: left antecubital; tw2 07:50 Follow up: Response: No adverse reaction; Pain is unchanged, physician notified; RASS: tw2 Alert and Calm (0) 07:56 Drug: Phenergan 12.5 mg Route: IVP; Site: left antecubital; tw2 08:32 Follow up: Response: No adverse reaction; Nausea is decreased tw2 07:58 Drug: Demerol 50 mg {Note: RASS 0.} Route: IVP; Site: left antecubital; tw2 08:32 Follow up: Response: No adverse reaction; Pain is decreased; RASS: Drowsy (-1) tw2 08:52 Drug: Flomax 0.4 mg Route: PO; tw2 09:33 Follow up: Response: No adverse reaction tw2 08:52 Drug: Magnesium Sulfate 1 grams Route: IVPB; Infused Over: 1 hrs; Site: left tw2 antecubital; 10:04 Follow up: Response: No adverse reaction; IV Status: Completed infusion; IV Intake: tw2 100ml 09:40 Drug: Demerol 25 mg {Note: RASS 0.} Route: IVP; Site: left antecubital; tw2 10:21 Follow up: Response: No adverse reaction; Pain is decreased; RASS: Alert and Calm (0) tw2 Intake: 10:04 IV: 100ml; Total: 100ml. tw2 Outcome: 10:04 Discharge ordered by . rn 10:26 Discharged to home ambulatory. tw2 10:26 Condition: stable 10:26 Discharge instructions given to patient, Instructed on discharge instructions, follow up and referral plans. no drinking with medication, no driving heavy equipment, medication usage, Demonstrated understanding of instructions, follow-up care, medications, Prescriptions given X 3. 10:26 Patient left the ED. tw2 Signatures: Dispatcher [employer] Hamida Andujar Roman, MD MD rn Wise, Tara, RN RN tw2 Leonel Salazar RN RN 4 Sravanthi Rodgers ag3 Corrections: (The following items were deleted from the chart) 07:11 07:10 Arm band placed on jb4 jb4 07:38 07:17 General: Appears uncomfortable, Behavior is anxious, pt states "just give me a tw2 minute, pt pacing the room in pain at this time, pt encouraged to sit where we can start her iv at this time. tw2
[2020-09-21 10:07] LABS: Urine Blood 3+ (NEG); Urine Glucose NEGATIVE (NEG); Urine Protein NEGATIVE (NEG); Urine Specific Gravity 1.015 (1.005-1.030); Urine pH 7.5 (5.0-7.0)
--- NOTE | 2020-09-21 10:08 | EDPHYS ---
Physician Documentation [facility] Name: Maricel Nur Age: 25 yrs Sex: Female : 1995 Arrival Date: 09/21/2020 Time: 06:51 Bed 13 Private MD: ED Physician Rudolph Jain HPI: 09/21 09:23 This 25 yrs old Female presents to ER via Ambulatory with complaints of rn Abdominal Pain. 09:23 The patient presents with abdominal pain in the right upper quadrant, right lower rn quadrant. Onset: The symptoms/episode began/occurred this morning. The symptoms do not radiate. Associated signs and symptoms: Pertinent positives: nausea, Pertinent negatives: blood in stools, chest pain, constipation, diarrhea, dysuria, fever. The symptoms are described as intermittent, sharp. Modifying factors: The symptoms are alleviated by nothing, the symptoms are aggravated by nothing. Severity of pain: At its worst the pain was moderate in the emergency department the pain is unchanged. The patient has not experienced similar symptoms in the past. The patient has not recently seen a physician. Reports recently had a baby, + right sided abd pain assoc with nausea/vomiting. No fever. No trauma. No hx of kidney stones. . 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 - Social history:: Smoking status: Patient denies any tobacco usage or history of. Patient/guardian denies using alcohol, street drugs. - Family history:: not pertinent. - Hospitalizations: : No recent hospitalization is reported. ROS: 09:23 Constitutional: Negative for fever, chills, and weight loss, Neck: Negative for injury, rn pain, and swelling, Cardiovascular: Negative for chest pain, palpitations, and edema, Respiratory: Negative for shortness of breath, cough, wheezing, and pleuritic chest pain, Abdomen/GI: Negative for diarrhea, and constipation, Back: Negative for injury and pain, : Negative for injury, bleeding, discharge, and swelling, MS/Extremity: Negative for injury and deformity, Skin: Negative for injury, rash, and discoloration, Neuro: Negative for headache, weakness, numbness, tingling, and seizure. Exam: 09:23 Constitutional: This is a well developed, well nourished patient who is awake, alert, rn appears uncomfortable, standing, pacing in room Head/Face: Normocephalic, atraumatic. Cardiovascular: Regular rate and rhythm. No pulse deficits. Respiratory: No increased work of breathing, no retractions or nasal flaring. Abdomen/GI: soft, + tender RUQ and RLQ, no rebound, neg acharya Skin: Warm, dry MS/ Extremity: Pulses equal, no cyanosis. Neuro: Awake and alert, GCS 15 Vital Signs: 07:08 BP 131 / 79; Pulse 63; Resp 16; Temp 97.4(TE); Pulse Ox 100% on R/A; Weight 72.57 kg jb4 (R); Height 5 ft. 5 in. (165.10 cm) (R); Pain 10/10; 08:15 BP 137 / 85; Pulse 62; Resp 17; Pulse Ox 96% on R/A; tw2 08:33 BP 104 / 55; Pulse 54; Resp 17; Pulse Ox 99% on R/A; tw2 09:28 BP 121 / 83; Pulse 62; Resp 17; Pulse Ox 100% on R/A; tw2 10:21 BP 99 / 82; Pulse 81; Resp 17; Pulse Ox 97% on R/A; Pain 5/10; tw2 07:08 Body Mass Index 26.63 (72.57 kg, 165.10 cm) jb4 MDM: 07:05 Patient medically screened. rn 10:03 Differential diagnosis: appendicitis, cholecystitis, Cholelithiasis, non-specific abd rn pain, Ureterolithiasis, urinary tract infection. Data reviewed: vital signs, nurses notes, lab test result(s), radiologic studies, CT scan, ultrasound, and as a result, I will discharge patient. Counseling: I had a detailed discussion with the patient and/or guardian regarding: the historical points, exam findings, and any diagnostic results supporting the discharge/admit diagnosis, lab results, radiology results, the need for outpatient follow up, to return to the emergency department if symptoms worsen or persist or if there are any questions or concerns that arise at home. Response to treatment: the patient's symptoms have markedly improved after treatment, sleeping comfortably, and as a result, I will discharge patient. Special discussion: Based on the patient's Hx, exam, and Dx evaluation, there is no indication for emergent surgery or inpatient Tx. It is understood by the patient/guardian that if the Sx's persist or worsen they need to return immediately for re-evaluation. I discussed with the patient/guardian in detail that at this point there is no indication for admission to the hospital. It is understood, however, that if the symptoms persist or worsen the patient needs to return immediately for re-evaluation. 09/21 07:10 Order name: Basic Metabolic Panel; Complete Time: 07:57 rn 09/21 07:10 Order name: CBC with Diff; Complete Time: 07:57 rn 09/21 07:10 Order name: Hepatic Function; Complete Time: 07:57 rn 09/21 07:10 Order name: Lipase; Complete Time: 07:57 rn 09/21 09:30 Order name: Urine Microscopic Only 09/21 09:55 Order name: Urine Dipstick--Ancillary (enter results) 09/21 07:10 Order name: CT Stone Protocol; Complete Time: 08:40 rn 09/21 07:10 Order name: US Abdomen Limited; Complete Time: 08:40 rn 09/21 09:55 Order name: Urine --Ancillary (enter results) bd 09/21 07:10 Order name: IV Saline Lock; Complete Time: 07:22 rn 09/21 07:10 Order name: Labs collected and sent; Complete Time: 07:22 rn 09/21 09:30 Order name: Urine Test (obtain specimen); Complete Time: 09:43 rn 09/21 09:30 Order name: Urine Dipstick-Ancillary (obtain specimen); Complete Time: 09:43 rn Administered Medications: 07:19 Drug: Zofran (Ondansetron) 4 mg Route: IVP; Site: left antecubital; tw2 07:50 Follow up: Response: No adverse reaction; Nausea unchanged; Nausea unchanged, provider tw2 notified. 07:21 Drug: morphine 4 mg {Note: RASS 0.} Route: IVP; Site: left antecubital; tw2 07:50 Follow up: Response: No adverse reaction; Pain is unchanged, physician notified; RASS: tw2 Alert and Calm (0) 07:56 Drug: Phenergan 12.5 mg Route: IVP; Site: left antecubital; tw2 08:32 Follow up: Response: No adverse reaction; Nausea is decreased tw2 07:58 Drug: Demerol 50 mg {Note: RASS 0.} Route: IVP; Site: left antecubital; tw2 08:32 Follow up: Response: No adverse reaction; Pain is decreased; RASS: Drowsy (-1) tw2 08:52 Drug: Flomax 0.4 mg Route: PO; tw2 09:33 Follow up: Response: No adverse reaction tw2 08:52 Drug: Magnesium Sulfate 1 grams Route: IVPB; Infused Over: 1 hrs; Site: left tw2 antecubital; 10:04 Follow up: Response: No adverse reaction; IV Status: Completed infusion; IV Intake: tw2 100ml 09:40 Drug: Demerol 25 mg {Note: RASS 0.} Route: IVP; Site: left antecubital; tw2 10:21 Follow up: Response: No adverse reaction; Pain is decreased; RASS: Alert and Calm (0) tw2 Disposition: 09/21/20 10:04 Discharged to Home. Impression: Calculus of lower urinary tract. - Condition is Stable. - Discharge Instructions: Kidney Stones. - Prescriptions for Zofran ODT 4 mg Oral tablet,disintegrating - place 1 tablet by TRANSLINGUAL route every 8 hours As needed; 20 tablet. Tylenol- Codeine #3 300-30 mg Oral Tablet - take 1 tablet by ORAL route every 6 hours As needed; 15 tablet. Cipro 500 mg Oral Tablet - take 1 tablet by ORAL route every 12 hours for 7 days; 14 tablet. - Medication Reconciliation Form, Thank You Letter, Antibiotic Education, Prescription Opioid Use, Work release form form. - Follow up: Private Physician; When: As needed; Reason: Recheck today's complaints, Re-evaluation by your physician. - Problem is new. - Symptoms have improved. Signatures: Dispatcher [employer] EDRudolph Kendrick MD MD rn Wise, Tara, RN RN tw2 Leonel Salazar RN RN jb4 Corrections: (The following items were deleted from the chart) 09:25 09:23 Constitutional: Negative for fever, chills, and weight loss, Neck: Negative for rn injury, pain, and swelling, Cardiovascular: Negative for chest pain, palpitations, and edema, Respiratory: Negative for shortness of breath, cough, wheezing, and pleuritic chest pain, Abdomen/GI: Negative for diarrhea, and constipation, MS/Extremity: Negative for injury and deformity, Skin: Negative for injury, rash, and discoloration, Neuro: Negative for headache, weakness, numbness, tingling, and seizure, rn 10:26 10:04 09/21/2020 10:04 Discharged to Home. Impression: Calculus of lower urinary tract. tw2 Condition is Stable. Forms are Work release form, Medication Reconciliation Form, Thank You Letter, Antibiotic Education, Prescription Opioid Use. Follow up: Private Physician; When: As needed; Reason: Recheck today's complaints, Re-evaluation by your physician. Problem is new. Symptoms have improved. rn
[2020-09-21 10:11] LABS: Urine Bacteria <20 /HPF (<20); Urine RBC 20-50 /HPF (NONE SEEN)
[2020-09-24 19:13] VITALS: TEMP 97.4
[2020-09-24 19:18] VITALS: BP 99/82; O2SAT 97
== END 2020-09-21 10:26 | disposition home or self-care (01) ==
LOC: ER 06:48
DX: N21.9 Calculus of lower urinary tract, unspecified (principal); Z88.1 Allergy status to other antibiotic agents
CPT/HCPCS: 96365; 85025; 80048; 36415; 81025; 80076; 83690; 76377; 74176; 76705; 96375; 99284; J2550; J3475; J2175 ×2; J7030; J2405; 81003; 81015

== ENCOUNTER 2021-01-28 21:01 | Emergency (ER) | payer OTHER ==
--- OUTSIDE RECORDS SUMMARY | 2021-01-28 21:04 | XMS REPORT | Continuity of Care Document ---
:1995 Author Organization [facility] t Address [address] [place] [address] Care Team Providers Name Role Phone Marcello [...] ID 2020-09-07 2020-09-07 Routine SUSHMA Gil [id number] [id number] 10:06:40 10:21:40 Gianni Armendariz CONTINUOUS PILLOWCASE CUTTER [id number] Visit REGIONAL [id number] MATERNAL [id number] & CHILD [address] [place] [address] 2020-08-26 2020-08-26 Telephone SUSHMA Henry [id number] 00:00:00 00:00:00 Mally C CONTINUOUS PILLOWCASE CUTTER [id number] REGIONAL [id number] MATERNAL [id number] & CHILD [address] [facility] 2020-08-14 2020-08-16 Hospital Edel Carballo [id number] 03:09:00 12:55:00 Encounter Verito LawleranahyVonnie morris 350. 1.13.10 [place] [id number] 2020-08-14 2020-08-14 Orders Doctor KAVYA [id number] 00:00:00 00:00:00 Only Unassigned, DILIP [id number] [place] [facility] [id number] 2020-08-10 2020-08-11 Hospital Juan Francisco Garcia [facility] [id number] 23:10:00 01:00:00 Encounter Jovanny [id number] [place] [id number] [place] [id number] [id number] 2020-08-06 2020-08-06 Routine [facility] [id number] 13:48:55 14:59:03 Mally C CONTINUOUS PILLOWCASE CUTTER [id number] Visit [facility] [id number] MATERNAL [id number] & CHILD [address] [facility] 2020-08-03 2020-08-03 Telephone [facility] [id number] 00:00:00 00:00:00 Mally C CONTINUOUS PILLOWCASE CUTTER [id number] REG[facility]AL [id number] MATERNAL [id number] & CHILD 107 [facility] Results This patient has no known results.
--- NOTE | 2021-01-28 23:37 | EDPHYS ---
Physician Documentation [facility] Name: Maricel Nur Age: 25 yrs Sex: Female : 1995 Arrival Date: 01/28/2021 Time: 21:03 Bed 16 Private MD: ED Physician Rudoplh Jain HPI: 01/28 23:34 This 25 yrs old Female presents to ER via Ambulatory with complaints of Sore jmm Throat, Cough. 23:34 The patient presents with sore throat. Onset: The symptoms/episode began/occurred jmm gradually, today. Modifying factors: The symptoms are alleviated by nothing, the symptoms are aggravated by nothing. Associated signs and symptoms: Pertinent positives: sinus congestion. It is unknown whether or not the patient has had similar symptoms in the past. Historical: - Allergies: 21:14 Cefzil; ll1 21:14 Cefprozil; ll1 - Home Meds: 23:21 hydroxyzine HCl 25 mg Oral tab 1 tab 3 times per day [Active]; sf - PMHx: 21:14 Colitis; Ovarian cyst; Efrain Wai Syndrome; stickler syndrome; ll1 23:21 Anxiety; sf - PSHx: 21:14 eye, ear, tongue, tubal ligation; trach with reversal; ll1 - Immunization history:: Client reports having NOT received the Covid vaccine. Flu vaccine is not up to date. - Social history:: Smoking status: Patient denies any tobacco usage or history of. ROS: 23:34 Constitutional: Negative for fever, chills, and weight loss, Cardiovascular: Negative jmm for chest pain, palpitations, and edema, Respiratory: Negative for shortness of breath, cough, wheezing, and pleuritic chest pain. 23:34 ENT: Positive for sinus congestion, sore throat. 23:34 All other systems are negative. Exam: 23:34 Constitutional: This is a well developed, well nourished patient who is awake, alert, jmm and in no acute distress. Head/Face: atraumatic. Eyes: EOMI, no conjunctival erythema appreciated 23:34 Neck: Trachea midline, Supple Chest/axilla: Normal chest wall appearance and motion. Cardiovascular: Regular rate and rhythm. No edema appreciated Respiratory: Normal respirations, no respiratory distress appreciated Abdomen/GI: Non distended, soft Back: Normal ROM Skin: General appearance color normal MS/ Extremity: Moves all extremities, no obvious deformities appreciated, no edema noted to the lower extremities Neuro: Awake and alert, normal gait Psych: Behavior is normal, Mood is normal, Patient is cooperative and pleasant 23:34 ENT: Posterior pharynx: Airway: normal, erythema, that is mild. Vital Signs: 21:09 BP 125 / 80; Pulse 81; Resp 17; Temp 98.8; Pulse Ox 100% ; Weight 74.84 kg; Height 5 ll1 ft. 5 in. (165.10 cm); Pain 4/10; 23:03 BP 108 / 70; Pulse 66; Resp 16; Pulse Ox 98% ; sf 21:09 Body Mass Index 27.46 (74.84 kg, 165.10 cm) ll1 MDM: 23:02 Patient medically screened. [facility] 23:36 Data reviewed: vital signs, nurses notes. Counseling: I had a detailed discussion with janell the patient and/or guardian regarding: the historical points, exam findings, and any diagnostic results supporting the discharge/admit diagnosis, the need for outpatient follow up, to return to the emergency department if symptoms worsen or persist or if there are any questions or concerns that arise at home. ED course: Patient is alert and non toxic in appearance in the ED. No signs of resp distress. Patient is advised to follow up with pcp and otherwise given strict return precautions. patient understood and agrees with the plan of care. . 01/28 23:05 Order name: Flu [facility] 01/28 23:05 Order name: Strep [facility] 01/28 23:05 Order name: COVID-19 : Document "Date of Symptom Onset" if Symptomatic. [facility] 01/28 23:27 Order name: CORONAVIRUS [facility] 01/28 23:28 Order name: Influenza Screen (A [facility] Administered Medications: No medications were administered Disposition: 01/29 04:47 Co-signature as Attending Physician, Rudolph Jain MD. rn Disposition: 01/28/21 23:37 Discharged to Home. Impression: Acute pharyngitis. - Condition is Stable. - Discharge Instructions: Pharyngitis. - Medication Reconciliation Form, Thank You Letter, Antibiotic Education, Prescription Opioid Use form. - Work release form (01/28/21 23:44). mw2 - Follow up: Private Physician; When: 2 - 3 days; Reason: Recheck today's complaints, Continuance of care, Re-evaluation by your physician. Signatures: Dispatcher [employer] EDMS Clemente Justice PA PA jmm Nieto, Roman, MD MD rn Lewis, Lynsay, RN RN ll1 Carter George RN RN Pattie Bowles mw2 Corrections: (The following items were deleted from the chart) 01/28 23:42 23:37 01/28/2021 23:37 Discharged to Home. Impression: Acute pharyngitis. Condition is sf Stable. Forms are Medication Reconciliation Form, Thank You Letter, Antibiotic Education, Prescription Opioid Use. Follow up: Private Physician; When: 2 - 3 days; Reason: Recheck today's complaints, Continuance of care, Re-evaluation by your physician. janell
--- NOTE | 2021-01-28 23:37 | ER ---
Nurse's Notes [facility] Name: Maricel Nur Age: 25 yrs Sex: Female : 1995 Arrival Date: 01/28/2021 Time: 21:03 Bed 16 Private MD: Diagnosis: Acute pharyngitis Presentation: 01/28 21:09 Chief complaint: Patient states: Sore throat, runny nose with burning nasal area for 1 ll1 day while at work. Chest hurts deep breathe. No fever. No N/V/D. Coronavirus screen: Client denies travel out of the [place] in the last 14 days. congestion, difficulty breathing, headache, muscle pain, runny nose, shortness of breath, sore throat, Client presents with at least one sign or symptom that may indicate coronavirus-19. Standard/surgical mask placed on the client. Ebola Screen: Patient denies travel to an Ebola-affected area in the 21 days before illness onset. Initial Sepsis Screen: Does the patient meet any 2 criteria? No. Patient's initial sepsis screen is negative. Does the patient have a suspected source of infection? Yes: Other: sore throat. Risk Assessment: Do you want to hurt yourself or someone else? Patient reports no desire to harm self or others. Onset of symptoms was January 28, 2021. 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 Flu vaccine is not up to date. - Social history:: Smoking status: Patient denies any tobacco usage or history of. Screenin:00 Abuse screen: Denies threats or abuse. Denies injuries from another. Nutritional sf screening: No deficits noted. Tuberculosis screening: No symptoms or risk factors identified. Fall Risk None identified. Total Cardenas Fall Scale indicates No Risk (0-24 pts). Assessment: 23:00 General: Appears in no apparent distress. comfortable, Behavior is calm, cooperative. sf Pain: Complains of pain in face and throat. Neuro: No deficits noted. Level of Consciousness is awake, alert, Oriented to person, place, time, situation. Cardiovascular: No deficits noted. Patient's skin is warm and dry. Respiratory: Airway is patent Respiratory effort is even, unlabored, Respiratory pattern is regular, symmetrical. GI: No deficits noted. No signs and/or symptoms were reported involving the gastrointestinal system. : No deficits noted. No signs and/or symptoms were reported regarding the genitourinary system. EENT: Throat is clear with gag reflex present, Reports. Derm: No deficits noted. No signs and/or symptoms reported regarding the dermatologic system. Musculoskeletal: No deficits noted. No signs and/or symptoms reported regarding the musculoskeletal system. Vital Signs: 21:09 BP 125 / 80; Pulse 81; Resp 17; Temp 98.8; Pulse Ox 100% ; Weight 74.84 kg; Height 5 ll1 ft. 5 in. (165.10 cm); Pain 4/10; 23:03 BP 108 / 70; Pulse 66; Resp 16; Pulse Ox 98% ; sf 21:09 Body Mass Index 27.46 (74.84 kg, 165.10 cm) ll1 ED Course: 21:03 Patient arrived in ED. cl3 21:13 Triage completed. ll1 21:14 Arm band placed on. ll1 22:43 Carter George, BRAYAN is Primary Nurse. sf 22:44 Clemente Justice PA is PHCP. [facility] 22:44 Rudolph Jain MD is Attending Physician. [facility] 23:00 Patient has correct armband on for positive identification. Bed in low position. Call sf light in reach. Side rails up X 1. Pulse ox on. NIBP on. Door closed. Noise minimized. Visitors limited. Lights dimmed. Verbal reassurance given. 23:05 COVID swab sent to lab. Flu and/or RSV swab sent to lab. Strep swab sent to lab. sf 23:42 No provider procedures requiring assistance completed. Patient did not have IV access sf during this emergency room visit. Administered Medications: No medications were administered Outcome: 23:37 Discharge ordered by MD. maciel 23:42 Discharged to home ambulatory. sf 23:42 Condition: stable 23:42 Discharge instructions given to patient, Instructed on discharge instructions, follow up and referral plans. Demonstrated understanding of instructions, follow-up care. 23:42 Patient left the ED. sf Signatures: Clemente Justice PA PA jmm Lewis, Charde cl3 Lizeth Jhaveri RN RN 1 Carter George RN RN
[2021-01-28 23:50] VITALS: TEMP 98.8
[2021-01-28 23:51] VITALS: BP 108/70; O2SAT 98
[2021-01-29 00:30] LABS: SARS-COV-2 RT PCR NEGATIVE (NEGATIVE)
== END 2021-01-28 23:42 | disposition home or self-care (01) ==
LOC: ER 21:01
DX: J02.9 Acute pharyngitis, unspecified (principal); Z20.822 Contact with and (suspected) exposure to COVID-19; Z88.8 Allergy status to other drugs, medicaments and biological substances
CPT/HCPCS: 87070; 87081; 0240U; 99283

== ENCOUNTER 2021-03-18 16:23 | Emergency (ER) | payer OTHER ==
--- OUTSIDE RECORDS SUMMARY | 2021-03-18 16:27 | XMS REPORT | Continuity of Care Document ---
:1995 Author Organization [facility] t Address [address] [place] [address] Care Team Providers Name Role Phone Marcello [...] ID 2020-09-07 2020-09-07 Routine SUSHMA Gil 1.2.840.114 [id number] 10:06:40 10:21:40 Gianni Armendariz SOLARIS ADMINISTRATOR [id number] Visit REGIONAL [id number] MATERNAL [id number] & CHILD [address] [place] [id number] 2020-08-26 2020-08-26 Telephone SUSHMA Henry 1.2.840.114 [id number] 00:00:00 00:00:00 Mally C SOLARIS ADMINISTRATOR [id number] REGIONAL [id number] MATERNAL [id number] & CHILD [address] [facility] 2020-08-14 2020-08-16 Hospital Edel Carballo 1.2.840.114 [id number] 03:09:00 12:55:00 Encounter Verito LawleranahyVonnie morris 350. 1.13.10 [place] [id number] 2020-08-14 2020-08-14 Orders Doctor KAVYA 1.2.840.114 [id number] 00:00:00 00:00:00 Only Unassigned, DILIP 350.1.13.10 [place] [facility] [id number] [id number] 2020-08-10 2020-08-11 Hospital Juan Francisco Garcia [facility] 1.2.840.114 [id number] 23:10:00 01:00:00 Encounter Jovanny 350.1.13.10 [place] 4.2.7.2.686 [place] [id number] 2020-08-06 2020-08-06 Routine [facility] [id number] 13:48:55 14:59:03 Mally C SOLARIS ADMINISTRATOR 350.1.13.10 Visit [facility] [id number] MATERNAL [id number] & CHILD [address] [facility] 2020-08-03 2020-08-03 Telephone [facility] 1.2.840.114 [id number] 00:00:00 00:00:00 Mally C SOLARIS ADMINISTRATOR [id number] REGIONAL [id number] MATERNAL [id number] & CHILD [address] [facility] Results This patient has no known results.
[2021-03-18] MEDS ORDERED: ACETAMINOPHEN 500 MG TAB ONE (18:23)
[2021-03-18 18:40] LABS: SARS-COV-2 RT PCR NEGATIVE (NEGATIVE)
--- NOTE | 2021-03-18 18:59 | EDPHYS ---
Physician Documentation [facility] Name: Maricel Nur Age: 25 yrs Sex: Female : 1995 Arrival Date: 03/18/2021 Time: 16:25 Bed 23 Private MD: ED Physician Shad Mendoza HPI: 03/18 17:15 This 25 yrs old Female presents to ER via Ambulatory with complaints of cp Fever, bodyaches, Breathing Difficulty, Headache. 17:15 The patient reports fever, with an emergency department temperature of 98.8 degrees cp Fahrenheit. 17:15 Onset: The symptoms/episode began/occurred yesterday. Associated signs and symptoms: cp Pertinent positives: headache, sinus drainage, sore throat, body aches, Pertinent negatives: diarrhea, vomiting. Patient reports receiving first dose of Moderna vaccination for COVID-19 yesterday with symptoms starting after receiving vaccination. Patient also concerned sore throat may be due to strep as son was recently diagnosed with strep infection. 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 - Social history:: Smoking status: Patient denies any tobacco usage or history of. ROS: 17:20 Constitutional: Positive for body aches, Negative for fever. cp 17:20 Eyes: Negative for injury, pain, redness, and discharge. cp 17:20 ENT: Positive for rhinorrhea, sore throat, Negative for ear pain, difficulty swallowing, difficulty handling secretions. 17:20 Cardiovascular: Negative for chest pain. 17:20 Respiratory: Positive for cough, Negative for shortness of breath, wheezing. 17:20 Abdomen/GI: Negative for abdominal pain, nausea, vomiting, and diarrhea. 17:20 Skin: Negative for rash. 17:20 Neuro: Positive for headache, Negative for altered mental status, weakness. 17:20 All other systems are negative. Exam: 17:25 Constitutional: The patient appears in no acute distress, alert, awake, non-toxic, well cp developed, well nourished. 17:25 Head/Face: Normocephalic, atraumatic. cp 17:25 Eyes: Periorbital structures: appear normal, Conjunctiva: normal, no exudate, no injection, Lids and lashes: appear normal, bilaterally. 17:25 ENT: External ear(s): are unremarkable, Ear canal(s): are normal, clear, TM's: dullness, bilaterally, Nose: is normal, Mouth: Lips: moist, Oral mucosa: moist, Posterior pharynx: Airway: no evidence of obstruction, patent, Tonsils: no enlargement, no exudate, erythema, that is mild, exudate, is not appreciated. 17:25 Neck: ROM/movement: is normal, is supple, no meningismus, no nuchal rigidity, Lymph nodes: no appreciated lymphadenopathy. 17:25 Chest/axilla: Inspection: normal. 17:25 Cardiovascular: Rate: tachycardic, Rhythm: regular. 17:25 Respiratory: the patient does not display signs of respiratory distress, Respirations: normal, no use of accessory muscles, no retractions, labored breathing, is not present, Breath sounds: are clear throughout, no decreased breath sounds. 17:25 Abdomen/GI: Exam negative for discomfort, distension, guarding, Inspection: abdomen appears normal. 17:25 Skin: no rash present. 17:25 Neuro: Orientation: to person, place \T\ time. Mentation: is normal, Motor: moves all fours, strength is normal, Gait: is steady. Vital Signs: 16:47 BP 118 / 71; Pulse 104; Resp 17; Temp 98.8; Pulse Ox 99% ; Weight 69.85 kg; Height 5 jl7 ft. 5 in. (165.10 cm); Pain 8/10; 16:47 Body Mass Index 25.63 (69.85 kg, 165.10 cm) jl7 MDM: 17:08 Patient medically screened. cp 18:00 Differential diagnosis: URI, bronchitis, UTI, side effects of vaccination, strep cp throat, influenza. 18:55 Data reviewed: vital signs, nurses notes, lab test result(s), and as a result, I will cp discharge patient. 18:57 Counseling: I had a detailed discussion with the patient and/or guardian regarding: the cp historical points, exam findings, and any diagnostic results supporting the discharge/admit diagnosis, lab results, to return to the emergency department if symptoms worsen or persist or if there are any questions or concerns that arise at home. 18:57 Response to treatment: the patient's symptoms have mildly improved after treatment, and cp as a result, I will discharge patient. 03/18 16:56 Order name: Strep jl7 03/18 18:40 Order name: COVID-19/FLU A+B; Complete Time: 18:46 EDMS 03/18 18:53 Order name: Throat Culture EDMS Administered Medications: 18:04 Drug: Tylenol 1000 mg Route: PO; ss 19:07 Follow up: Response: No adverse reaction ss Disposition: 03/19 07:51 Co-signature as Attending Physician, Shad Mendoza MD I agree with the assessment and kdr plan of care. Disposition: 03/18/21 18:58 Discharged to Home. Impression: Adverse effect of other viral vaccines. - Condition is Stable. - Discharge Instructions: Fever, Adult. - Medication Reconciliation Form, Thank You Letter, Antibiotic Education, Prescription Opioid Use form. - Follow up: Private Physician; When: 2 - 3 days; Reason: Worsening of condition. - Problem is new. - Symptoms have improved. Signatures: Dispatcher [employer] [facility] Shad Mendoza MD MD [facility] Matilde Taylor RN RN ss Nael Gaines PA PA cp Tyrone Bañuelos, RN RN jl7 Corrections: (The following items were deleted from the chart) 03/18 17:53 16:56 CORONAVIRUS+MR.LAB.BRZ ordered. [facility] 17:54 16:56 Influenza Screen (A \T\ B)+BA.LAB.BRZ ordered. [facility] EDAZ 19:07 18:58 03/18/2021 18:58 Discharged to Home. Impression: Adverse effect of other viral ss vaccines. Condition is Stable. Forms are Medication Reconciliation Form, Thank You Letter, Antibiotic Education, Prescription Opioid Use. Follow up: Private Physician; When: 2 - 3 days; Reason: Worsening of condition. Problem is new. Symptoms have improved. cp
--- NOTE | 2021-03-18 18:59 | ER ---
Nurse's Notes [facility] Name: Maricel Nur Age: 25 yrs Sex: Female : 1995 Arrival Date: 03/18/2021 Time: 16:25 Bed 23 Private MD: Diagnosis: Adverse effect of other viral vaccines Presentation: 03/18 16:47 Chief complaint: Patient states: Had first COVID shot on Monday and a couple hours jl7 aj started having sore throat, body aches, MONTOYA, and fever. My son has strep so I might have strep. Coronavirus screen: Client denies travel out of the [place] in the last 14 days. fever, headache, muscle pain, runny nose, sore throat, Client presents with at least one sign or symptom that may indicate coronavirus-19. Standard/surgical mask placed on the client. Provider contacted for isolation considerations. Ebola Screen: No symptoms or risks identified at this time. Initial Sepsis Screen: Does the patient meet any 2 criteria? No. Patient's initial sepsis screen is negative. Does the patient have a suspected source of infection? No. Patient's initial sepsis screen is negative. Risk Assessment: Do you want to hurt yourself or someone else? Patient reports no desire to harm self or others. Onset of symptoms was March 17, 2021. Care prior to arrival: None. 16:47 Method Of Arrival: Ambulatory [facility] 16:47 Acuity: ALEXANDER 4 jl7 Triage Assessment: 16:50 General: Appears in no apparent distress. uncomfortable, Behavior is calm, cooperative, jl7 appropriate for age. Pain: Complains of pain in MONTOYA and sore throat Pain currently is 8 out of 10 on a pain scale. EENT: Throat is reddened. Neuro: Level of Consciousness is awake, alert, obeys commands, Oriented to person, place, time, situation. Cardiovascular: Patient's skin is warm and dry. Respiratory: Reports cough that is Onset: The symptoms/episode began/occurred. Respiratory: Airway is patent Respiratory effort is even, unlabored, Respiratory pattern is regular, symmetrical, the patient has mild shortness of breath. Derm: Skin is pink, warm \T\ dry. 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 - Social history:: Smoking status: Patient denies any tobacco usage or history of. Screenin:05 Abuse screen: Denies threats or abuse. Denies injuries from another. Nutritional ss screening: No deficits noted. Tuberculosis screening: Never had TB. Fall Risk None identified. Assessment: 17:45 General: Appears in no apparent distress. comfortable, Behavior is calm, cooperative. ss General: Reports feeling ill for Since Monday. Also c/o sore throat/ body aches. Neuro: Level of Consciousness is awake, alert, obeys commands, Oriented to person, place, time, situation. Respiratory: Airway is patent Respiratory effort is even, unlabored, Respiratory pattern is regular, symmetrical, Denies cough. GI: Patient currently denies abdominal pain, diarrhea, vomiting. Derm: Skin is pink, warm \T\ dry. 18:05 Reassessment: Patient appears in no apparent distress at this time. Patient and/or ss family updated on plan of care and expected duration. Pain level reassessed. Pt c/o headache. ELY Spangler notified. Tylenol given as ordered. Pt is grateful. Awaiting swab results. Call light remains within reach. Vital Signs: 16:47 BP 118 / 71; Pulse 104; Resp 17; Temp 98.8; Pulse Ox 99% ; Weight 69.85 kg; Height 5 jl7 ft. 5 in. (165.10 cm); Pain 8/10; 16:47 Body Mass Index 25.63 (69.85 kg, 165.10 cm) jl7 ED Course: 16:25 Patient arrived in ED. am2 16:49 Triage completed. jl7 16:50 Arm band placed on right wrist. jl7 16:56 Tyrone Bañuelos RN is Primary Nurse. 7 17:00 Nael Gaines PA is PHCP. cp 17:00 Shad Mendoza MD is Attending Physician. cp 18:05 Patient has correct armband on for positive identification. Bed in low position. Call ss light in reach. Side rails up X 1. 19:06 No provider procedures requiring assistance completed. Patient did not have IV access ss during this emergency room visit. Administered Medications: 18:04 Drug: Tylenol 1000 mg Route: PO; ss 19:07 Follow up: Response: No adverse reaction ss Outcome: 18:58 Discharge ordered by . cp 19:06 Discharged to home ambulatory. ss 19:06 Condition: good 19:06 Discharge instructions given to patient, Instructed on discharge instructions, follow up and referral plans. Demonstrated understanding of instructions, follow-up care. 19:07 Patient left the ED. Signatures: Matilde Taylor RN RN Nael Gaines PA PA cp Leal, Jahala RN RN jl7 Marie Costa am2
[2021-03-18 19:12] VITALS: BP 118/71; TEMP 98.8; O2SAT 99
== END 2021-03-18 19:07 | disposition home or self-care (01) ==
LOC: ER 16:23
DX: R50.9 Fever, unspecified (principal); T50.B95A Adverse effect of other viral vaccines, initial encounter; Z20.822 Contact with and (suspected) exposure to COVID-19; Z88.8 Allergy status to other drugs, medicaments and biological substances
CPT/HCPCS: 87070; 87081; 0240U; 99283

== ENCOUNTER 2022-03-28 18:31 | Emergency (ER) | payer OTHER ==
--- OUTSIDE RECORDS SUMMARY | 2022-03-28 18:39 | XMS REPORT | Continuity of Care Document ---
:1995 Author Organization [facility] t Address [address] [place] [address] Care Team Providers Name Role Phone Marcello DURAN Attending Clinician Unavailable Marcello Pinedo Attending Clinician Akinsikat WHCNP, C Attending Clinician Tanner Carballo MD Attending Clinician Verito Davis MD Attending Clinician AKINBENTLEY C Attending Clinician Unavailable Doctor Unassigned, Name Attending Clinician Unavailable Jose PEREZ Attending Clinician Lab Attending Clinician Unavailable Ultrasound Attending Clinician Unavailable Jero PEREZ Attending Clinician Clint PEREZ, W Attending Clinician Owen PEREZ Attending Clinician Vaibhav Attending Clinician Unavailable Saima Bartlett MD Attending Clinician Penny Attending Clinician Unavailable Allan PEREZ, F Attending Clinician Saima BARTLETT Attending Clinician Unavailable Saima BARTLETT Attending Clinician Unavailable Faculty, [facility] Attending Clinician Unavailable JOSE Admitting Clinician Unavailable Tanner Carballo MD Admitting Clinician Jose PEREZ Admitting Clinician Payers Payer Name Policy Type Policy Number Effective Date Expiration Date [facility] [id number] 2020 CHOICE MEDICAID 00:00:00 MEDICAID [facility] [id number] 2019 00:00:00 Problems Condition Condition Condition Status Onset Resolution Last Treating Co mments Source Name Details Category Date Date Treatment Clinician Date S/P tubal S/P tubal Disease Active 2019-10 Uni vers ligation ligation - ity of 00:00: [place] [id number] Medical Branch ROM ROM Disease Active 2020- Univers (rupture (rupture 0-30 ity of of of 00:00: [place] membranes) membranes) 00 Al dical , , Branch premature premature Obesity Obesity Disease Active 2019-10 Univers (BMI (BMI 0-30 ity of 30-39.9) 30-39.9) 00:00: [place] 00 Medical Branch Anemia of Anemia of Disease Active 2019-10 Uni vers mother in mother in 0-19 ity of , , 00:00[place] antepartum antepartum 00 Al dical Branch Heartburn Heartburn Disease Active 2020- Uni vers in in 9-11 [place] [facility] [place] Disease Active 2020-0 Uni vers epistaxis epistaxis 7-14 ity of 00:00: [place] 00 Medical Branch Supervisio Supervisio Disease Active 2020-0 U nivers n of n of 5-18 ity of high-risk high-risk 00:[place] [facility] Multiparit Multiparit Disease Active 2020-0 U nivers y y 5-18 ity of 00:00: [place] 00 Medical Branch History of History of Disease Active 2020-0 U nivers miscarriag miscarriag 5-18 it y of e e 00:00: [place] [facility] Depression Depression Disease Active 2020-0 U nivers during during 4-03 [place] [facility] [place] Generalize Generalize Disease Active 2020-0 U nivers d anxiety d anxiety 4-03 ity of disorder disorder 00:00: [place] [facility] Major Major Disease Active 2020-0 Univers depressive depressive 4-03 it y of disorder disorder 00:00: [place] [facility] Nausea and Nausea and Disease Active 2020-0 U nivers vomiting vomiting 4-03 ity of during during 00:00: [place] 00 [facility] Rubella Rubella Disease Active 2020-0 Overview: Univ ers non-immune non-immune 3-20 Address i ty of status, status, 00:00: pp [place] antepartum antepartum 00 [facility] Supervisio Supervisio Disease Active 2020-0 U nivers n of n of 3-19 ity of high-risk high-risk 00:[place] [facility] Contracept Contracept Disease Active U nivers kelle kelle 4-16 ity of management management [place]:00: [place] [facility] Disease Active 2019 Univers (spontaneo (spontaneo 3- it y of [place] vaginal us vaginal 00:[place] delivery[place] delivery[place] 00 [facility] Single Single Disease Active 2019 Univers live live 3- it y of 00:00: [place] 00 [facility] 38 weeks 38 weeks Disease Active 2017-10 Unive rs gestation gestation 2-29 ity of of of 00:00: [place] 00 [facility] Rubella Rubella Disease Active 2018 Overview: Univ ers non-immune non-immune 7- Address i ty of status, status, 00:00: pp [place] antepartum antepartum 00 [facility] History of History of Disease Active 2018 Overview : Univers 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 00:00: [place] 00 Medical Branch 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 7- ity of 00:00: [place] 00 Medical Branch Efrain Efrain Disease Active 2018 Univers Wai's Wai's 7- ity of syndrome syndrome 00:00: [place] 00 Medical Branch Pain Pain Disease Active 2017- Univers pelvic pelvic 7-13 ity of 00:00: [place] 00 Medical Branch Dysmenorrh Dysmenorrh Disease Active 2016-0 U nivers ea ea 6-24 ity of 00:00: [place] 00 Medical Branch Allergies, Adverse Reactions, Alerts Allergy Allergy Status Severity Reaction(s) Onset Inactive Treating Comm ents Source Name Type Date Date Clinician CEFPROZI DRUG Active Hives 2007- Univers L INGREDI 2-27 ity of 00:00: [place] 00 Medical Branch Cefprozi Propensi Active Hives 2007- Univer s l ty to 2-27 ity of adverse 00:00: [place] reaction 00 Medical s Branch Social History Social Habit Start Date Stop Date Quantity Comments Source ASSERTION 2019-12-06 University of 00:00:00 [facility] Branch Exposure to Not sure University of SARS-CoV-2 [facility] (event) Branch Sex Assigned At Universit y of [facility] Branch Tobacco use and 2020-08-16 2020-08-16 Never used Universit y of exposure 00:00:00 00:00:00 [facility] Alcohol intake 2020-08-16 2020-08-16 Current [facility] 00:00:00 00:00:00 non-drinker of [facility] alcohol Branch (finding) History [facility] 2020-08-14 2020-08-14 11 University o f Education 00:00:00 00:00:00 [facility] Branch History [facility] 2020-08-14 2020-08-14 4 University o f Financial 00:00:00 00:00:00 [facility] Branch Smoking Status Start Date Stop Date Source Never smoker [facility] Medications Ordered Filled Start Stop Current Ordering Indication Dosage Frequency Signature Comments Components Source Medication Medication Date Date Medication? Clinician (SIG) Name Name 2019-10 Yes [id number] 1{tbl} Take 1 Univers vitamin 1-02 tablet by ity of w/FA tablet 00:00: mouth [place] 00 daily. Medical Branch acetaminoph 2019-10 Yes [id number] 650mg Take 2 Univers en 325 mg 1-02 tablets by ity of tablet 00:00: mouth [place] 00 every 6 Medical (six) Branch hours as needed for Pain (scale 1-3). docusate 2019-10 Yes [id number] 240mg Take 1 U nivers calcium 240 1-02 capsule by it y of mg capsule 00:00: mouth once [place] 00 daily as Medical needed for Branch Constipati on. 2019-10 Yes [id number] 1{tbl} Take 1 Univers vitamin 1-02 tablet by ity of w/FA tablet 00:00: mouth [place] 00 daily. Medical Branch ibuprofen 2019-10 Yes [id number] 600mg Take 1 Univers 600 mg 1-02 tablet by ity of tablet 00:00: mouth [place] 00 every 6 Medical (six) Branch hours as needed for Pain (scale 4-6). acetaminoph 2019-10 Yes [id number] 650mg Take 2 Univers en 325 mg 1-02 tablets by ity of tablet 00:00: mouth [place] 00 every 6 Medical (six) Branch hours as needed for Pain (scale 1-3). docusate 2019-10 Yes [id number] 240mg Take 1 U nivers calcium 240 1-02 capsule by it y of mg capsule 00:00: mouth once [place] 00 daily as Medical needed for Branch Constipati on. 2019-10 Yes [id number] 1{tbl} Take 1 Univers vitamin 1-02 tablet by ity of w/FA tablet 00:00: mouth [place] 00 daily. Medical Branch ibuprofen 2019-10 Yes [id number] 600mg Take 1 Univers 600 mg 1-02 tablet by ity of tablet 00:00: mouth [place] 00 every 6 Medical (six) Branch hours as needed for Pain (scale 4-6). acetaminoph 2019-10 Yes [id number] 650mg Take 2 Univers en 325 mg 1-02 tablets by ity of tablet 00:00: mouth [place] 00 every 6 Medical (six) Branch hours as needed for Pain (scale 1-3). docusate 2019-10 Yes [id number] 240mg Take 1 U nivers calcium 240 1-02 capsule by it y of mg capsule 00:00: mouth once [place] 00 daily as Medical needed for Branch Constipati on. 2019-10 Yes [id number] 1{tbl} Take 1 Univers vitamin 1-02 tablet by ity of w/FA tablet 00:00: mouth [place] 00 daily. Medical Branch ibuprofen 2019-10 Yes [id number] 600mg Take 1 Univers 600 mg 1-02 tablet by ity of tablet 00:00: mouth [place] 00 every 6 Medical (six) Branch hours as needed for Pain (scale 4-6). measles, 2019-10 2020- No .5mL 0.5 mL, Unive rs mumps + -08-16 Subcutaneo ity o f rubella vac 18:00: 16:57 us, ONCE, [place] (M-M-R II) 00 :00 1 dose, Medica l 1,000-12,50 Sun Branch 0 08/16/20 at TCID50/0.5 1200, mL Routine injection 0.5 mL docusate 2019-10 Yes [id number] 240mg Take 1 U nivers calcium 240 -01 capsule by it y of mg capsule 00:00: mouth once [place] 00 daily as Medical needed for Branch Constipati on. ibuprofen 2019-10 Yes [id number] 600mg Take 1 Univers 600 mg 1-01 tablet by ity of tablet 00:00: mouth [place] 00 every 6 Medical (six) Branch hours as needed for Pain (scale 4-6). 2019-10 Yes [id number] 1{tbl} Take 1 Univers vitamin 1-01 tablet by ity of w/FA tablet 00:00: mouth [place] 00 daily. Medical Branch docusate 2019-10 Yes [id number] 240mg Take 1 U nivers calcium 240 1-01 capsule by it y of mg capsule 00:00: mouth once [place] 00 daily as Medical needed for Branch Constipati on. ferrous 2019-10 Yes [id number] 325mg Take 1 Un [place] sulfate 325 1-01 tablet by ity of mg (65 mg 00:00: mouth 2 [place] iron) 00 (two) Medical tablet times Branch daily. ibuprofen 2019-10 Yes [id number] 600mg Take 1 Univers 600 mg 1-01 tablet by ity of tablet 00:00: mouth [place] 00 every 6 Medical (six) Branch hours as needed (Pain). Take with food or milk. ferrous 2019-10 Yes [id number] 325mg Take 1 Un [place] sulfate 325 1-01 tablet by ity of mg (65 mg 00:00: mouth 2 [place] iron) 00 (two) Medical tablet times Branch daily. ferrous 2019-10 Yes [id number] 325mg Take 1 Un [place] sulfate 325 1-01 tablet by ity of mg (65 mg 00:00: mouth 2 [place] iron) 00 (two) Medical tablet times Branch daily. ferrous 2019-10 Yes [id number] 325mg Take 1 Un [place] sulfate 325 1-01 tablet by ity of mg (65 mg 00:00: mouth 2 [place] iron) 00 (two) Medical tablet times Branch daily. acetaminoph 2019-10- No [id number] 650mg Take 2 Univers en 325 mg - 11-02 tablets by ity of tablet 00:00: 04:59 mouth [place] 00 :00 every 6 Medical (six) Branch hours as needed for Pain (scale 1-3). measles, 2019-10- No [id number] .5mL inject 0.5 Univers mumps + 10-16 11-02 mL under ity of rubella vac 00:00: 05:59 the skin [place] 1,000-12,50 00 :00 once now Medi kavon 0 for 1 Branch TCID50/0.5 dose. mL injection HYDROcodone 2019-10 Yes 2{tbl} 2 tablet, Univers -acetaminop 0 Oral, ity of hen (NORCO 14:50: Q6HPRN, [place] 5) 5-325 mg 03 Starting Medi kavon tablet 2 Sat Branch tablet 08/15/20 at 0950, Until Discontinu ed, Routine, Pain (scale 7-10) lactated 2019-10 2020- No IV Univers ringers IV 008-15 Infusion, ity of infusion 13:42: 23:29 CONTINUOUS [place] 00 :23 PRN, Medical Starting Branch 08/15/20 at 0842, Until Discontinu ed, Routine, Intra-op sodium 2019-10 2020- No 30mL 30 mL, Univers citrate-cit 008-15 Oral, ity of lana acid 13:15: 13:32 ONCE, 1 [place] (BICITRA) 00 :00 dose, Sat Medic al 500-334 08/15/20 Branch mg/5 mL at 0830, solution 30 Routine mL rho(D) 2019-10 Yes 300ug 300 mcg, Univer s immune 0-31 Intramuscu ity of globulin 03:12: lar, ONCE, [place] (RHOGAM) 24 For 1 Medical syringe 300 dose, Branch mcg Conditiona l, Routine ibuprofen 2019-10 Yes 600mg 600 mg, Univ ers (IBU) 0 Oral, ity of tablet 600 03:12: Q6HPRN, [place] mg 19 Starting Medical Fri Branch 08/14/20 at 2212, Until Discontinu ed, Routine, Pain (scale 4-6) diphenhydrA 2019-10 Yes 25mg 25 mg, IV U nivers MINE-0.9 % 0 Piggyback, ity of sod.chlr 03:12: Q6HPRN, [place] (BENADRYL) 19 Starting Medic al 25 mg/50 mL Fri Branch piggyback 08/14/20 25 mg at 2212, Until Discontinu ed, 50 mL ondansetron 2019-10 Yes 4mg 4 mg, Slow Univers (ZOFRAN 031 IV Push, ity of (PF)) 03:12: Q8HPRN, [place] injection 4 19 Starting Medi kavon mg Fri Branch 08/14/20 at 2212, Until Discontinu ed, Routine, Nausea and Vomiting (N/V) simethicone 2019-10 Yes 160mg 160 mg, Un [place] (GAS RELIEF 0-31 Oral, ity of (SIMETHICON 03:12: PC+HSPRN, [place] E)) 19 Starting Medical chewable Fri Branch tablet 160 20 mg at 2211, Until Discontinu ed, Routine, Gas docusate 2019-10 Yes 240mg 240 mg, Unive rs calcium 0-31 Oral, ity of (SURFAK) 03:12: QDAILYPRN, [place] capsule 240 19 Starting Medi kavon mg Fri Branch 08/14/20 at 2211, Until Discontinu ed, Routine, Constipati on magnesium 2019-10 Yes 30mL 30 mL, Univer s hydroxide 0-31 Oral, ity of (MILK OF 03:12: QDAILYPRN, [place] MAGNESIA) 19 Starting Medica l 400 mg/5 mL Fri Branch suspension 08/14/20 30 mL at 2211, Until Discontinu ed, Routine, Constipati on acetaminoph 2019-10 Yes 650mg 650 mg, Un [place] en 0-31 Oral, ity of (TYLENOL) 03:12: Q6HPRN, [place] tablet 650 18 Starting Medic al mg Fri Branch 08/14/20 at 2211, Until Discontinu ed, Routine, Pain (scale 1-3) diphenhydrA 2019-10 Yes 25mg 25 mg, Univ ers MINE 0-31 Oral, ity of (BENADRYL) 03:12: Q6HPRN, [place] tablet 25 18 Starting Medica l mg Fri Branch 08/14/20 at 2211, Until Discontinu ed, Routine, Sleep, Itching benzocaine- 2019-10 Yes Topical, Un [place] menthol 0-31 PRN, ity of (DERMOPLAST 03:12: Starting [place] ) 20-0.5 % 18 Mon Medical topical 08/14/20 Branch spray at 2211, Until Discontinu ed, Routine, Perineum discomfort diphenhydrA 2019-10 2020- No 25mg 25 mg, Uni vers MINE 0-30 10-30 Slow IV ity of (BENADRYL) 23:30: 23:38 Push, [place] injection 00 :00 ONCE, 1 Medical 25 mg dose, Fri Branch 08/14/20 at 1845, Routine sodium 2019-10 2020- No 30mL 30 mL, Univers citrate-cit 0-30 10-30 Oral, ity of lana acid 17:55: 18:31 PRE-PROCED [place] (BICITRA) 09 :00 URE ONCE, Medic al 500-334 1 dose, Branch mg/5 mL Starting solution 30 Fri mL 08/14/20 at 1255, Until 08/14/20 at 1331, Routine, Surgery/Pr ocedure lactated 2019-10- No 500mL at 999 Unive rs ringers IV 0-30 10-30 mL/hr, 500 it y of infusion 17:55: 18:31 mL, IV [place] 500 mL 09 :00 Infusion, Medical PRN - SEE Branch INSTRUCTIO NS, 1 dose, Starting 08/14/20 at 1255, Until Mon08/14/20 at 1331, Routine terbutaline 2019-10- No .25mg 0.25 mg, Univers (BRETHINE) 0-30 10-30 Subcutaneo it y of injection 13:09: 13:11 , ONCE, [place] 0.25 mg 00 :00 1 dose, Medical Fri Branch 08/14/20 at 0815, Routine D5W-LR IV 2019-10- No 1000mL at 125 Uni vers infusion 0-30 10-31 mL/hr, IV ity o f 1,000 mL 10:00: 03:12 Infusion, [place] 00 :25 CONTINUOUS Medical , Starting Branch 08/14/20 at 0500, Until Mon08/14/20 at 2212, Routine proMETHazin 2019-10- No 25mg 25 mg, IV Univers e 0 10-31 Piggyback, ity of (PHENERGAN) 09:58: 03:12 Q4HPRN, [place] 25 mg in 29 :25 Starting Medical NaCl 0.9% Fri Branch (NS) 50 mL 08/14/20 piggyback at 0458, Until Mon08/14/20 at 2212, 50 mL FENTanyl PF 2019-10- No 100ug 100 mcg, Univers (SUBLIMAZE 0- 10-31 Slow IV ity o f (PF)) 09:58: 03:12 Push, [place] injection 14 :25 Q1HPRN, Medical 100 mcg Starting Branch 10/30/20 at 0458, Until Mon08/14/20 at 2212, Routine, Pain (scale 4-6), Pain (scale 7-10) LR 1000 mL 2019-10 2020- No 2mU/min at 6-120 Univers + oxytocin 0-30 10-31 mL/hr, IV ity of 20 units IV 09:45: 03:12 Infusion, [place] Solution 00 :25 TITRATE, Medical Starting Branch Mon08/14/20 at 0445, Until Mon08/14/20 at 2212, VEENA ascorbic 2019-10 Yes [id number] 500mg Take 1 U nivers acid, 0-19 tablet by ity of vitamin C, 00:00: mouth 3 [place] 500 mg 00 (three) Medical tablet times Branch daily. ferrous 2019-10 Yes [id number] 325mg Take 1 Un [place] sulfate 325 0-19 tablet by ity of mg (65 mg 00:00: mouth 2 [place] iron) 00 (two) Medical tablet times Branch daily. ascorbic 2019-10 Yes [id number] 500mg Take 1 U nivers acid, 0-19 tablet by ity of vitamin C, 00:00: mouth 3 [place] 500 mg 00 (three) Medical tablet times Branch daily. ferrous 2019-10 Yes [id number] 325mg Take 1 Un [place] sulfate 325 0-19 tablet by ity of mg (65 mg 00:00: mouth 2 [place] iron) 00 (two) Medical tablet times Branch daily. ascorbic 2019-10 Yes [id number] 500mg Take 1 U nivers acid, 0-19 tablet by ity of vitamin C, 00:00: mouth 3 [place] 500 mg 00 (three) Medical tablet times Branch daily. ferrous 2019-10 Yes [id number] 325mg Take 1 Un [place] sulfate 325 0-19 tablet by ity of mg (65 mg 00:00: mouth 2 [place] iron) 00 (two) Medical tablet times Branch daily. ascorbic 2019-10 Yes [id number] 500mg Take 1 U nivers acid, 0-19 tablet by ity of vitamin C, 00:00: mouth 3 [place] 500 mg 00 (three) Medical tablet times Branch daily. ferrous 2019-10 Yes [id number] 325mg Take 1 Un [place] sulfate 325 0-19 tablet by ity of mg (65 mg 00:00: mouth 2 [place] iron) 00 (two) Medical tablet times Branch daily. ascorbic 2020- Yes [id number] 500mg Take 1 U nivers acid, 0-19 tablet by ity of vitamin C, 00:00: mouth 3 [place] 500 mg 00 (three) Medical tablet times Branch daily. ferrous 2020- Yes [id number] 325mg Take 1 Un [place] sulfate 325 0-19 tablet by ity of mg (65 mg 00:00: mouth 2 [place] iron) 00 (two) Medical tablet times Branch daily. ascorbic 2019-10 2020- No [id number] 500mg Take 1 Univers acid, 0-19 - tablet by ity of vitamin C, 00:00: 00:00 mouth 3 [place] 500 mg 00 :00 (three) Medical tablet times Branch daily. ferrous 2019-10 2020- No [id number] 325mg Take 1 U nivers sulfate 325 0-19 - tablet by it y of mg (65 mg 00:00: 00:00 mouth 2 [place] iron) 00 :00 (two) Medical tablet times Branch daily. SERTraline 2020-0 Yes [id number] 50mg Take 1 U nivers (ZOLOFT) 50 4-06 tablet by ity of mg tablet 00:00: mouth [place] 00 daily. Medical Branch SERTraline 2020-0 Yes [id number] 50mg Take 1 U nivers (ZOLOFT) 50 4-06 tablet by ity of mg tablet 00:00: mouth [place] 00 daily. Medical Branch SERTraline 2020-0 Yes [id number] 50mg Take 1 U nivers (ZOLOFT) 50 4-06 tablet by ity of mg tablet 00:00: mouth [place] 00 daily. Medical Branch SERTraline 2020-0 Yes [id number] 50mg Take 1 U nivers (ZOLOFT) 50 4-06 tablet by ity of mg tablet 00:00: mouth [place] 00 daily. Medical Branch SERTraline 2020-0 Yes [id number] 50mg Take 1 U nivers (ZOLOFT) 50 4-06 tablet by ity of mg tablet 00:00: mouth [place] 00 daily. Medical Branch SERTraline 2020-0 Yes [id number] 50mg Take 1 U nivers (ZOLOFT) 50 4-06 tablet by ity of mg tablet 00:00: mouth [place] 00 daily. Medical Branch SERTraline 2020-0 Yes [id number] 50mg Take 1 U nivers (ZOLOFT) 50 4-06 tablet by ity of mg tablet 00:00: mouth [place] 00 daily. Medical Branch SERTraline 2020-0 Yes [id number] 50mg Take 1 U nivers (ZOLOFT) 50 4-06 tablet by ity of mg tablet 00:00: mouth [place] 00 daily. Medical Branch SERTraline 2020-0 Yes [id number] 50mg Take 1 U nivers (ZOLOFT) 50 4-06 tablet by ity of mg tablet 00:00: mouth [place] 00 daily. Medical Branch SERTraline 2019-0 Yes [id number] 50mg Take 1 U nivers (ZOLOFT) 50 4-06 tablet by ity of mg tablet 00:00: mouth [place] 00 daily. Medical Branch SERTraline 2019-0 Yes [id number] 50mg Take 1 U nivers (ZOLOFT) 50 4-06 tablet by ity of mg tablet 00:00: mouth [place] 00 daily. Medical Branch SERTraline 2019-0 Yes [id number] 50mg Take 1 U nivers (ZOLOFT) 50 4-06 tablet by ity of mg tablet 00:00: mouth [place] 00 daily. Medical Branch SERTraline 2019-0 Yes [id number] 50mg Take 1 U nivers (ZOLOFT) 50 4-06 tablet by ity of mg tablet 00:00: mouth [place] 00 daily. Medical Branch SERTraline 2019-0 Yes [id number] 50mg Take 1 U nivers (ZOLOFT) 50 4-06 tablet by ity of mg tablet 00:00: mouth [place] 00 daily. Medical Branch SERTraline 2020-0 Yes [id number] 50mg Take 1 U nivers (ZOLOFT) 50 4-06 tablet by ity of mg tablet 00:00: mouth [place] 00 daily. Medical Branch SERTraline 2019-0 Yes [id number] 50mg Take 1 U nivers (ZOLOFT) 50 4-06 tablet by ity of mg tablet 00:00: mouth [place] 00 daily. Medical Branch SERTraline 2020-0 Yes [id number] 50mg Take 1 U nivers (ZOLOFT) 50 4-06 tablet by ity of mg tablet 00:00: mouth [place] 00 daily. Medical Branch SERTraline 2020-0 Yes [id number] 50mg Take 1 U nivers (ZOLOFT) 50 4-06 tablet by ity of mg tablet 00:00: mouth [place] 00 daily. Medical Branch SERTraline 2020-0 Yes [id number] 50mg Take 1 U nivers (ZOLOFT) 50 4-06 tablet by ity of mg tablet 00:00: mouth [place] 00 daily. Medical Branch SERTraline 2020-0 Yes [id number] 50mg Take 1 U nivers (ZOLOFT) 50 4-06 tablet by ity of mg tablet 00:00: mouth [place] 00 daily. Medical Branch SERTraline 2020-0 Yes [id number] 50mg Take 1 U nivers (ZOLOFT) 50 4-06 tablet by ity of mg tablet 00:00: mouth [place] 00 daily. Medical Branch SERTraline 2019-0 Yes [id number] 50mg Take 1 U nivers (ZOLOFT) 50 4-06 tablet by ity of mg tablet 00:00: mouth [place] 00 daily. Medical Branch SERTraline 2020-0 Yes [id number] 50mg Take 1 U nivers (ZOLOFT) 50 4-06 tablet by ity of mg tablet 00:00: mouth [place] 00 daily. Medical Branch SERTraline 2020-0 Yes [id number] 50mg Take 1 U nivers (ZOLOFT) 50 4-06 tablet by ity of mg tablet 00:00: mouth [place] 00 daily. Medical Branch SERTraline 2019-0 Yes [id number] 50mg Take 1 U nivers (ZOLOFT) 50 4-06 tablet by ity of mg tablet 00:00: mouth [place] 00 daily. Medical Branch SERTraline 2020-0 Yes [id number] 50mg Take 1 U nivers (ZOLOFT) 50 4-06 tablet by ity of mg tablet 00:00: mouth [place] 00 daily. Medical Branch SERTraline 2020-0 Yes [id number] 50mg Take 1 U nivers (ZOLOFT) 50 4-06 tablet by ity of mg tablet 00:00: mouth [place] 00 daily. Medical Branch SERTraline 2020-0 Yes [id number] 50mg Take 1 U nivers (ZOLOFT) 50 4-06 tablet by ity of mg tablet 00:00: mouth [place] 00 daily. [facility] Branch SERTraline 2020-0 Yes [id number] 50mg Take 1 U nivers (ZOLOFT) 50 4-06 tablet by ity of mg tablet 00:00: mouth [place] 00 daily. Medical Branch SERTraline 2020-0 Yes [id number] 50mg Take 1 U nivers (ZOLOFT) 50 4-06 tablet by ity of mg tablet 00:00: mouth [place] 00 daily. Medical Branch SERTraline 2019-0 Yes [id number] 50mg Take 1 U nivers (ZOLOFT) 50 4-06 tablet by ity of mg tablet 00:00: mouth [place] 00 daily. Medical Branch SERTraline 2019-0 Yes [id number] 50mg Take 1 U nivers (ZOLOFT) 50 4-06 tablet by ity of mg tablet 00:00: mouth [place] 00 daily. [facility] Branch SERTraline 2019-0 Yes [id number] 50mg Take 1 U nivers (ZOLOFT) 50 4-06 tablet by ity of mg tablet 00:00: mouth [place] 00 daily. [facility] Branch SERTraline 2019-0 Yes [id number] 50mg Take 1 U nivers (ZOLOFT) 50 4-06 tablet by ity of mg tablet 00:00: mouth [place] 00 daily. [facility] Branch SERTraline 2019-0 Yes [id number] 50mg Take 1 U nivers (ZOLOFT) 50 4-06 tablet by ity of mg tablet 00:00: mouth [place] 00 daily. [facility] Branch SERTraline 2019-0 Yes [id number] 50mg Take 1 U nivers (ZOLOFT) 50 4-06 tablet by ity of mg tablet 00:00: mouth [place] 00 daily. [facility] Branch SERTraline 2019-0 Yes [id number] 50mg Take 1 U nivers (ZOLOFT) 50 4-06 tablet by ity of mg tablet 00:00: mouth [place] 00 daily. [facility] Branch SERTraline 2019-0 Yes [id number] 50mg Take 1 U nivers (ZOLOFT) 50 4-06 tablet by ity of mg tablet 00:00: mouth [place] 00 daily. [facility] Branch SERTraline 2019-0 Yes [id number] 50mg Take 1 U nivers (ZOLOFT) 50 4-06 tablet by ity of mg tablet 00:00: mouth [place] 00 daily. [facility] Branch SERTraline 2019-0 Yes [id number] 50mg Take 1 U nivers (ZOLOFT) 50 4-06 tablet by ity of mg tablet 00:00: mouth [place] 00 daily. [facility] Branch SERTraline 2019-0 Yes [id number] 50mg Take 1 U nivers (ZOLOFT) 50 4-06 tablet by ity of mg tablet 00:00: mouth [place] 00 daily. Medical Branch SERTraline 2020-0 Yes [id number] 50mg Take 1 U nivers (ZOLOFT) 50 4-06 tablet by ity of mg tablet 00:00: mouth [place] 00 daily. Medical Branch SERTraline 2020-0 Yes [id number] 50mg Take 1 U nivers (ZOLOFT) 50 4-06 tablet by ity of mg tablet 00:00: mouth [place] 00 daily. Medical Branch SERTraline 2020-0 Yes [id number] 50mg Take 1 U nivers (ZOLOFT) 50 4-06 tablet by ity of mg tablet 00:00: mouth [place] 00 daily. [facility] Branch SERTraline 2020-0 Yes [id number] 50mg Take 1 U nivers (ZOLOFT) 50 4-06 tablet by ity of mg tablet 00:00: mouth [place] 00 daily. Medical Branch SERTraline 2020-0 Yes [id number] 50mg Take 1 U nivers (ZOLOFT) 50 4-06 tablet by ity of mg tablet 00:00: mouth [place] 00 daily. Medical Branch SERTraline 2020-0 Yes [id number] 50mg Take 1 [facility] nivers (ZOLOFT) 50 4-06 tablet by ity of mg tablet 00:00: mouth [place] 00 daily. [facility] Branch SERTraline 2020-0 Yes [id number] 50mg Take 1 [facility]ivers (ZOLOFT) 50 4-06 tablet by ity of mg tablet 00:00: mouth [place] 00 daily. Medical Branch proMETHazin 2020-0 Yes [id number] 25mg Take 1 [facility] 25 mg 3-19 tablet by ity of tablet 00:00: mouth [place] 00 every 6 Medical (six) Branch hours as needed for Nausea and Vomiting (N/V). proMETHazin 2020-0 Yes [id number] 25mg Take 1 [facility] e 25 mg 3-19 tablet by ity of tablet 00:00: mouth [place] 00 every 6 Medical (six) Branch hours as needed for Nausea and Vomiting (N/V). proMETHazin 2020-0 Yes [id number] 25mg Take 1 [facility] e 25 mg 3-19 tablet by ity of tablet 00:00: mouth [place] 00 every 6 Medical (six) Branch hours as needed for Nausea and Vomiting (N/V). proMETHazin 2020-0 Yes [id number] 25mg Take 1 [facility] e 25 mg 3-19 tablet by ity of tablet 00:00: mouth [place] 00 every 6 Medical (six) Branch hours as needed for Nausea and Vomiting (N/V). proMETHazin 2020-0 Yes [id number] 25mg Take 1 [facility] 25 mg 3-19 tablet by ity of tablet 00:00: mouth [place] 00 every 6 Medical (six) Branch hours as needed for Nausea and Vomiting (N/V). proMETHazin 2020-0 Yes [id number] 25mg Take 1 [facility] e 25 mg 3-19 tablet by ity of tablet 00:00: mouth [place] 00 every 6 Medical (six) Branch hours as needed for Nausea and Vomiting (N/V). proMETHazin 2020-0 Yes [id number] 25mg Take 1 [facility] 25 mg 3-19 tablet by ity of tablet 00:00: mouth [place] 00 every 6 Medical (six) Branch hours as needed for Nausea and Vomiting (N/V). proMETHazin 2020-0 Yes [id number] 25mg Take 1 [facility] e 25 mg 3-19 tablet by ity of tablet 00:00: mouth [place] 00 every 6 Medical (six) Branch hours as needed for Nausea and Vomiting (N/V). proMETHazin 2020-0 Yes [id number] 25mg Take 1 [facility] 25 mg 3-19 tablet by ity of tablet 00:00: mouth [place] 00 every 6 Medical (six) Branch hours as needed for Nausea and Vomiting (N/V). proMETHazin 2020-0 Yes [id number] 25mg Take 1 [facility] 25 mg 3-19 tablet by ity of tablet 00:00: mouth [place] 00 every 6 Medical (six) Branch hours as needed for Nausea and Vomiting (N/V). proMETHazin 2020-0 Yes [id number] 25mg Take 1 [facility] 25 mg 3-19 tablet by ity of tablet 00:00: mouth [place] 00 every 6 Medical (six) Branch hours as needed for Nausea and Vomiting (N/V). proMETHazin 2020-0 Yes [id number] 25mg Take 1 [facility] e 25 mg 3-19 tablet by ity of tablet 00:00: mouth [place] 00 every 6 Medical (six) Branch hours as needed for Nausea and Vomiting (N/V). proMETHazin 2020-0 Yes [id number] 25mg Take 1 [facility] e 25 mg 3-19 tablet by ity of tablet 00:00: mouth [place] 00 every 6 Medical (six) Branch hours as needed for Nausea and Vomiting (N/V). proMETHazin 2020-0 Yes [id number] 25mg Take 1 [facility] e 25 mg 3-19 tablet by ity of tablet 00:00: mouth [place] 00 every 6 Medical (six) Branch hours as needed for Nausea and Vomiting (N/V). proMETHazin 2020-0 Yes [id number] 25mg Take 1 [facility] e 25 mg 3-19 tablet by ity of tablet 00:00: mouth [place] 00 every 6 Medical (six) Branch hours as needed for Nausea and Vomiting (N/V). proMETHazin 2020-0 Yes [id number] 25mg Take 1 [facility] 25 mg 3-19 tablet by ity of tablet 00:00: mouth [place] 00 every 6 Medical (six) Branch hours as needed for Nausea and Vomiting (N/V). proMETHazin 2020-0 Yes [id number] 25mg Take 1 [facility] e 25 mg 3-19 tablet by ity of tablet 00:00: mouth [place] 00 every 6 Medical (six) Branch hours as needed for Nausea and Vomiting (N/V). proMETHazin 2020-0 Yes [id number] 25mg Take 1 [facility] e 25 mg 3-19 tablet by ity of tablet 00:00: mouth [place] 00 every 6 Medical (six) Branch hours as needed for Nausea and Vomiting (N/V). proMETHazin 2020-0 Yes [id number] 25mg Take 1 [facility] e 25 mg 3-19 tablet by ity of tablet 00:00: mouth [place] 00 every 6 Medical (six) Branch hours as needed for Nausea and Vomiting (N/V). proMETHazin 2020-0 Yes [id number] 25mg Take 1 [facility] e 25 mg 3-19 tablet by ity of tablet 00:00: mouth [place] 00 every 6 Medical (six) Branch hours as needed for Nausea and Vomiting (N/V). proMETHazin 2020-0 Yes [id number] 25mg Take 1 [facility] e 25 mg 3-19 tablet by ity of tablet 00:00: mouth [place] 00 every 6 Medical (six) Branch hours as needed for Nausea and Vomiting (N/V). proMETHazin 2020-0 Yes [id number] 25mg Take 1 [facility] e 25 mg 3-19 tablet by ity of tablet 00:00: mouth [place] 00 every 6 Medical (six) Branch hours as needed for Nausea and Vomiting (N/V). proMETHazin 2020-0 Yes [id number] 25mg Take 1 [facility] e 25 mg 3-19 tablet by ity of tablet 00:00: mouth [place] 00 every 6 Medical (six) Branch hours as needed for Nausea and Vomiting (N/V). proMETHazin 2020-0 Yes [id number] 25mg Take 1 [facility] 25 mg 3-19 tablet by ity of tablet 00:00: mouth [place] 00 every 6 Medical (six) Branch hours as needed for Nausea and Vomiting (N/V). proMETHazin 2020-0 Yes [id number] 25mg Take 1 [facility] 25 mg 3-19 tablet by ity of tablet 00:00: mouth [place] 00 every 6 Medical (six) Branch hours as needed for Nausea and Vomiting (N/V). proMETHazin 2020-0 Yes [id number] 25mg Take 1 [facility] e 25 mg 3-19 tablet by ity of tablet 00:00: mouth [place] 00 every 6 Medical (six) Branch hours as needed for Nausea and Vomiting (N/V). proMETHazin 2020-0 Yes [id number] 25mg Take 1 [facility] e 25 mg 3-19 tablet by ity of tablet 00:00: mouth [place] 00 every 6 Medical (six) Branch hours as needed for Nausea and Vomiting (N/V). proMETHazin 2020-0 Yes [id number] 25mg Take 1 [facility] e 25 mg 3-19 tablet by ity of tablet 00:00: mouth [place] 00 every 6 Medical (six) Branch hours as needed for Nausea and Vomiting (N/V). proMETHazin 2020-0 Yes [id number] 25mg Take 1 [facility] e 25 mg 3-19 tablet by ity of tablet 00:00: mouth [place] 00 every 6 Medical (six) Branch hours as needed for Nausea and Vomiting (N/V). proMETHazin 2020-0 Yes [id number] 25mg Take 1 [facility] e 25 mg 3-19 tablet by ity of tablet 00:00: mouth [place] 00 every 6 Medical (six) Branch hours as needed for Nausea and Vomiting (N/V). proMETHazin 2020-0 Yes [id number] 25mg Take 1 [facility] e 25 mg 3-19 tablet by ity of tablet 00:00: mouth [place] 00 every 6 Medical (six) Branch hours as needed for Nausea and Vomiting (N/V). proMETHazin 2020-0 Yes [id number] 25mg Take 1 [facility] e 25 mg 3-19 tablet by ity of tablet 00:00: mouth [place] 00 every 6 Medical (six) Branch hours as needed for Nausea and Vomiting (N/V). proMETHazin 2020-0 Yes [id number] 25mg Take 1 [facility] e 25 mg 3-19 tablet by ity of tablet 00:00: mouth [place] 00 every 6 Medical (six) Branch hours as needed for Nausea and Vomiting (N/V). proMETHazin 2020-0 Yes [id number] 25mg Take 1 [facility] e 25 mg 3-19 tablet by ity of tablet 00:00: mouth [place] 00 every 6 Medical (six) Branch hours as needed for Nausea and Vomiting (N/V). proMETHazin 2020-0 Yes [id number] 25mg Take 1 [facility] e 25 mg 3-19 tablet by ity of tablet 00:00: mouth [place] 00 every 6 Medical (six) Branch hours as needed for Nausea and Vomiting (N/V). proMETHazin 2020-0 Yes [id number] 25mg Take 1 [facility] e 25 mg 3-19 tablet by ity of tablet 00:00: mouth [place] 00 every 6 Medical (six) Branch hours as needed for Nausea and Vomiting (N/V). proMETHazin 2020-0 Yes [id number] 25mg Take 1 [facility] e 25 mg 3-19 tablet by ity of tablet 00:00: mouth [place] 00 every 6 Medical (six) Branch hours as needed for Nausea and Vomiting (N/V). proMETHazin 2020-0 Yes [id number] 25mg Take 1 [facility] e 25 mg 3-19 tablet by ity of tablet 00:00: mouth [place] 00 every 6 Medical (six) Branch hours as needed for Nausea and Vomiting (N/V). proMETHazin 2020-0 Yes [id number] 25mg Take 1 [facility] e 25 mg 3-19 tablet by ity of tablet 00:00: mouth [place] 00 every 6 Medical (six) Branch hours as needed for Nausea and Vomiting (N/V). proMETHazin 2020-0 Yes [id number] 25mg Take 1 [facility] e 25 mg 3-19 tablet by ity of tablet 00:00: mouth [place] 00 every 6 Medical (six) Branch hours as needed for Nausea and Vomiting (N/V). proMETHazin 2020-0 Yes [id number] 25mg Take 1 [facility] e 25 mg 3-19 tablet by ity of tablet 00:00: mouth [place] 00 every 6 Medical (six) Branch hours as needed for Nausea and Vomiting (N/V). proMETHazin 2020-0 Yes [id number] 25mg Take 1 [facility] e 25 mg 3-19 tablet by ity of tablet 00:00: mouth [place] 00 every 6 Medical (six) Branch hours as needed for Nausea and Vomiting (N/V). proMETHazin 2020-0 Yes [id number] 25mg Take 1 [facility] e 25 mg 3-19 tablet by ity of tablet 00:00: mouth [place] 00 every 6 Medical (six) Branch hours as needed for Nausea and Vomiting (N/V). proMETHazin 2020-0 Yes [id number] 25mg Take 1 [facility] e 25 mg 3-19 tablet by ity of tablet 00:00: mouth [place] 00 every 6 Medical (six) Branch hours as needed for Nausea and Vomiting (N/V). proMETHazin 2020-0 Yes [id number] 25mg Take 1 [facility] e 25 mg 3-19 tablet by ity of tablet 00:00: mouth [place] 00 every 6 Medical (six) Branch hours as needed for Nausea and Vomiting (N/V). proMETHazin 2020-0 2020- No [id number] 25mg Take 1 [facility] e 25 mg 3-19 - tablet by ity of tablet 00:00: 00:00 mouth [place] 00 :00 every 6 Medical (six) Branch hours as needed for Nausea and Vomiting (N/V). No known No Univers medications ity of [facility] Immunizations Ordered Filled Immunization Date Status Comments [facility] e Immunization Name Name MMR 2020-08-16 Completed University 00:00:00 [facility] MMR 2020-08-16 Completed University 00:00:00 [facility] MMR 2020-08-16 Completed University 00:00:00 [facility] Influenza Virus 2020-01-02 Completed Universit y of [facility] .5 mL 00:00:00 [facility] 6+ MO [place] Influenza Virus 2020-01-02 Completed Universit y of Vaccine [facility] .5 mL 00:00:00 [facility] 6+ MO Branch Influenza Virus 2020-01-02 Completed Universit y of Vaccine [facility] .5 mL 00:00:00 [facility] 6+ MO Branch Influenza Virus 2020-01-02 Completed Universit y of Vacc[facility] .5 mL 00:00:00 [place] [facility] 6+ MO Branch Influenza Virus 2020-01-02 Completed Universit y of Vacc[facility] .5 mL 00:00:00 [place] [facility] IM 6+ MO Branch Influenza Virus 2020-01-02 Completed Universit y of Vacc[facility] .5 mL 00:00:00 [place] [facility] IM 6+ MO Branch Influenza Virus 2020-01-02 Completed Universit y of Vacc[facility] .5 mL 00:00:00 [place] [facility] IM 6+ MO Branch Influenza Virus 2020-01-02 Completed Universit y of Vacc[facility] .5 mL 00:00:00 [place] [facility] IM 6+ MO Branch Influenza Virus 2020-01-02 Completed Universit y of Vacc[facility] .5 mL 00:00:00 [place] [facility] IM 6+ MO Branch Influenza Virus 2020-01-02 Completed Universit y of [facility] .5 mL 00:00:00 [place] [facility] IM 6+ MO Branch Influenza Virus 2020-01-02 Completed Universit y of Vacc[facility] .5 mL 00:00:00 [place] [facility] IM 6+ MO Branch Influenza Virus 2020-01-02 Completed Universit y of [facility] .5 mL 00:00:00 [place] [facility] IM 6+ MO Branch Influenza Virus 2020-01-02 Completed Universit y of [facility] .5 mL 00:00:00 [place] [facility] IM 6+ MO Branch Influenza Virus 2020-01-02 Completed Universit y of Vacc[facility] .5 mL 00:00:00 [place] [facility] IM 6+ MO Branch Influenza Virus 2020-01-02 Completed Universit y of Vaccine [facility] .5 mL 00:00:00 [place] [facility] IM 6+ MO Branch Influenza Virus 2020-01-02 Completed Universit y of Vacc[facility] .5 mL 00:00:00 [place] [facility] IM 6+ MO Branch Influenza Virus 2020-01-02 Completed Universit y of Vaccine [facility] .5 mL 00:00:00 [place] [facility] IM 6+ MO Branch Influenza Virus 2020-01-02 Completed Universit y of Vaccine [facility] .5 mL 00:00:00 [place] [facility] IM 6+ MO Branch Influenza Virus 2020-01-02 Completed Universit y of Vaccine [facility] .5 mL 00:00:00 [place] [facility] IM 6+ MO Branch Influenza Virus 2020-01-02 Completed Universit y of Vacc[facility] .5 mL 00:00:00 [place] [facility] IM 6+ MO Branch Influenza Virus 2020-01-02 Completed Universit y of Vaccine [facility] .5 mL 00:00:00 [place] [facility] IM 6+ MO Branch Influenza Virus 2020-01-02 Completed Universit y of Vaccine [facility] .5 mL 00:00:00 [place] [facility] IM 6+ MO Branch Influenza Virus 2020-01-02 Completed Universit y of Vacc[facility] .5 mL 00:00:00 [place] [facility] IM 6+ MO Branch Influenza Virus 2020-01-02 Completed Universit y of Vacc[facility] .5 mL 00:00:00 [place] [facility] IM 6+ MO Branch Influenza Virus 2020-01-02 Completed Universit y of [facility] .5 mL 00:00:00 [place] [facility] IM 6+ MO Branch Influenza Virus 2020-01-02 Completed [facility]it y of [facility] .5 mL 00:00:00 [place] [facility] IM 6+ MO Branch Influenza Virus 2020-01-02 Completed Universit y of Vacc[facility] .5 mL 00:00:00 [place] [facility] IM 6+ MO Branch Influenza Virus 2020-01-02 Completed Universit y of Vacc[facility] .5 mL 00:00:00 [place] [facility] IM 6+ MO Branch Influenza Virus 2020-01-02 Completed [facility]it y of Vacc[facility] .5 mL 00:00:00 [place] [facility] IM 6+ MO Branch Influenza Virus 2020-01-02 Completed Universit y of Vaccine [facility] .5 mL 00:00:00 [place] [facility] IM 6+ MO Branch Influenza Virus 2020-01-02 Completed Universit y of Vaccine [facility] .5 mL 00:00:00 [place] [facility] IM 6+ MO Branch Influenza Virus 2020-01-02 Completed Universit y of Vaccine [facility] .5 mL 00:00:00 [place] [facility] IM 6+ MO Branch Influenza Virus 2020-01-02 Completed Universit y of Vaccine [facility] .5 mL 00:00:00 [place] [facility] IM 6+ MO Branch Influenza Virus 2020-01-02 Completed Universit y of Vaccine [facility] .5 mL 00:00:00 [place] [facility] IM 6+ MO Branch Influenza Virus 2020-01-02 Completed Universit y of Vaccine [facility] .5 mL 00:00:00 [place] [facility] IM 6+ MO Branch Influenza Virus 2020-01-02 Completed Universit y of [facility] .5 mL 00:00:00 [place] [facility] IM 6+ MO Branch Influenza Virus 2020-01-02 Completed Universit y of [facility] .5 mL 00:00:00 [place] [facility] IM 6+ MO Branch Influenza Virus 2020-01-02 Completed Universit y of Vaccine [facility] .5 mL 00:00:00 [place] [facility] IM 6+ MO Branch Influenza Virus 2020-01-02 Completed Universit y of Vaccine [facility] .5 mL 00:00:00 [place] [facility] IM 6+ MO Branch Influenza Virus 2020-01-02 Completed Universit y of Vaccine [facility] .5 mL 00:00:00 [place] [facility] IM 6+ MO Branch Influenza Virus 2020-01-02 Completed Universit y of Vaccine [facility] .5 mL 00:00:00 [place] [facility] IM 6+ MO Branch Influenza Virus 2020-01-02 Completed Universit y of Vaccine [facility] .5 mL 00:00:00 [place] [facility] IM 6+ MO Branch Influenza Virus 2020-01-02 Completed Universit y of Vaccine [facility] .5 mL 00:00:00 [place] [facility] IM 6+ MO Branch Influenza Virus 2020-01-02 Completed Universit y of Vaccine [facility] .5 mL 00:00:00 [place] [facility] IM 6+ MO Branch Influenza Virus 2020-01-02 Completed Universit y of Vaccine [facility] .5 mL 00:00:00 [place] [facility] IM 6+ MO Branch Influenza Virus 2020-01-02 Completed Universit y of Vaccine [facility] .5 mL 00:00:00 [place] [facility] IM 6+ MO Branch Influenza Virus 2020-01-02 Completed Universit y of [facility] .5 mL 00:00:00 [place] [facility] IM 6+ MO Branch Influenza Virus 2020-01-02 Completed Universit y of Vacc[facility] .5 mL 00:00:00 [place] [facility] IM 6+ MO Branch Influenza Virus 2020-01-02 Completed Universit y of [facility] .5 mL 00:00:00 [place] [facility] 6+ MO Branch Tdap 2018-10-18 Completed University of 00:00:00 [place] [facility] [place] Tdap 2018-10-18 Completed University of 00:00:00 [place] [facility] [place] Tdap 2018-10-18 Completed University of 00:00:00 [place] [facility] [place] Tdap 2018-10-18 Completed University of 00:00:00 [place] [facility] Tdap 2018-10-18 Completed University of 00:00:00 [place] [facility] Tdap 2018-10-18 Completed University of 00:00:00 [place] [facility] [place] Tdap 2018-10-18 Completed University of 00:00:00 [facility] Tdap 2018-10-18 Completed University of 00:00:00 [facility] Tdap 2018-10-18 Completed University of 00:00:00 [place] [facility] [place] Tdap 2018-10-18 Completed University of 00:00:00 [place] [facility] Tdap 2018-10-18 Completed University of 00:00:00 [place] [facility] Tdap 2018-10-18 Completed University of 00:00:00 [place] [facility] Tdap 2018-10-18 Completed University of 00:00:00 [place] [facility] Tdap 2018-10-18 Completed University of 00:00:00 [place] [facility] Tdap 2018-10-18 Completed University of 00:00:00 [place] [facility] Tdap 2018-10-18 Completed University of 00:00:00 [place] [facility] TDAP 2018-10-18 Completed University of 00:00:00 [place] [facility] TDAP 2018-10-18 Completed University of 00:00:00 [place] [facility] TDAP 2018-10-18 Completed University of 00:00:00 [place] [facility] TDAP 2018-10-18 Completed University of 00:00:00 [place] [facility] TDAP 2018-10-18 Completed University of 00:00:00 [place] [facility] Tdap 2018-10-18 Completed University of 00:00:00 [place] [facility] TDAP 2018-10-18 Completed University of 00:00:00 [place] [facility] TDAP 2018-10-18 Completed University of 00:00:00 [place] [facility] TDAP 2018-10-18 Completed University of 00:00:00 [place] [facility] TDAP 2018-10-18 Completed University of 00:00:00 [place] [facility] TDAP 2018-10-18 Completed University of 00:00:00 [place] [facility] TDAP 2018-10-18 Completed University of 00:00:00 [place] [facility] TDAP 2018-10-18 Completed University of 00:00:00 [place] [facility] TDAP 2018-10-18 Completed University of 00:00:00 [place] [facility] TDAP 2018-10-18 Completed University of 00:00:00 [place] [facility] TDAP 2018-10-18 Completed University of 00:00:00 [place] [facility] TDAP 2018-10-18 Completed University of 00:00:00 [place] [facility] TDAP 2018-10-18 Completed University of 00:00:00 [place] [facility] TDAP 2018-10-18 Completed University of 00:00:00 [place] [facility] TDAP 2018-10-18 Completed University of 00:00:00 [place] [facility] TDAP 2018-10-18 Completed University of 00:00:00 [place] [facility] TDAP 2018-10-18 Completed University of 00:00:00 [facility] TDAP 2018-10-18 Completed University of 00:00:00 [place] [facility] TDAP 2018-10-18 Completed University of 00:00:00 [place] [facility] TDAP 2018-10-18 Completed University of 00:00:00 [place] [facility] Tdap 2018-10-18 Completed University of 00:00:00 [facility] TDAP 2018-10-18 Completed University of 00:00:00 [place] [facility] TDAP 2018-10-18 Completed University of 00:00:00 [place] [facility] TDAP 2018-10-18 Completed University of 00:00:00 [facility] TDAP 2018-10-18 Completed University of 00:00:00 [facility] Tdap 2018-10-18 Completed University of 00:00:00 [facility] TDAP 2018-10-18 Completed University of 00:00:00 [facility] TDAP 2018-10-18 Completed University of 00:00:00 [facility] TDAP 2018-10-18 Completed University of 00:00:00 [facility] Influenza Virus 2018-08-20 Completed Universit y of Vaccine [facility] IM 00:00:00 [place] [facility] 6+ MO Branch Influenza Virus 2018-08-20 Completed Universit y of [facility] IM 00:00:00 [place] [facility] Multi-dose 6+ MO Branch Influenza Virus 2018-08-20 Completed Universit y of Vaccine [facility] IM 00:00:00 [place] [facility] Multi-dose 6+ MO Branch Influenza Virus 2018-08-20 Completed Universit y of Vaccine [facility] IM 00:00:00 [place] [facility] Multi-dose 6+ MO Branch Influenza Virus 2018-08-20 Completed Universit y of Vaccine [facility] IM 00:00:00 [place] [facility] Multi-dose 6+ MO Branch Influenza Virus 2018-08-20 Completed Universit y of Vaccine [facility] IM 00:00:00 [place] [facility] Multi-dose 6+ MO Branch Influenza Virus 2018-08-20 Completed Universit y of [facility] IM 00:00:00 [place] [facility] Multi-dose 6+ MO Branch Influenza Virus 2018-08-20 Completed Universit y of Vaccine [facility] IM 00:00:00 [place] [facility] Multi-dose 6+ MO Branch Influenza Virus 2018-08-20 Completed Universit y of Vaccine [facility] IM 00:00:00 [place] [facility] Multi-dose 6+ MO Branch Influenza Virus 2018-08-20 Completed Universit y of [facility]ine [facility] IM 00:00:00 [place] [facility] Multi-dose 6+ MO Branch Influenza Virus 2018-08-20 Completed Universit y of Vaccine [facility] IM 00:00:00 [place] [facility] Multi-dose 6+ MO Branch Influenza Virus 2018-08-20 Completed Universit y of Vaccine [facility] IM 00:00:00 [place] [facility] Multi-dose 6+ MO Branch Influenza Virus 2018-08-20 Completed Universit y of Vaccine [facility] IM 00:00:00 [place] [facility] Multi-dose 6+ MO Branch Influenza Virus 2018-08-20 Completed Universit y of [facility]ine [facility] IM 00:00:00 [place] [facility] Multi-dose 6+ MO Branch Influenza Virus 2018-08-20 Completed Universit y of [facility] IM 00:00:00 [place] [facility] Multi-dose 6+ MO Branch Influenza Virus 2018-08-20 Completed [facility]it y of Vaccine [facility] IM 00:00:00 [place] [facility] Multi-dose 6+ MO Branch Influenza Virus 2018-08-20 Completed Universit y of [facility] IM 00:00:00 [place] [facility] Multi-dose 6+ MO Branch Influenza Virus 2018-08-20 Completed [facility]it y of [facility] IM 00:00:00 [place] [facility] Multi-dose 6+ MO Branch Influenza Virus 2018-08-20 Completed Universit y of [facility] IM 00:00:00 [place] [facility] Multi-dose 6+ MO Branch Influenza Virus 2018-08-20 Completed Universit y of [facility] IM 00:00:00 [place] [facility] Multi-dose 6+ MO Branch Influenza Virus 2018-08-20 Completed Universit y of Vaccine [facility] IM 00:00:00 [place] [facility] Multi-dose 6+ MO Branch Influenza Virus 2018-08-20 Completed Universit y of [facility] IM 00:00:00 [place] [facility] Multi-dose 6+ MO Branch Influenza Virus 2018-08-20 Completed Universit y of [facility]ine [facility] IM 00:00:00 [place] [facility] Multi-dose 6+ MO Branch Influenza Virus 2018-08-20 Completed Universit y of [facility] IM 00:00:00 [place] [facility] Multi-dose 6+ MO Branch Influenza Virus 2018-08-20 Completed Universit y of Vaccine [facility] IM 00:00:00 [place] [facility] Multi-dose 6+ MO Branch Influenza Virus 2018-08-20 Completed Universit y of [facility]ine [facility] IM 00:00:00 [place] [facility] Multi-dose 6+ MO Branch Influenza Virus 2018-08-20 Completed Universit y of [facility]ine [facility] IM 00:00:00 [place] [facility] Multi-dose 6+ MO Branch Influenza Virus 2018-08-20 Completed Universit y of [facility]ine [facility] IM 00:00:00 [place] [facility] Multi-dose 6+ MO Branch Influenza Virus 2018-08-20 Completed Universit y of [facility] IM 00:00:00 [place] [facility] Multi-dose 6+ MO Branch Influenza Virus 2018-08-20 Completed Universit y of [facility]ine [facility] IM 00:00:00 [place] [facility] Multi-dose 6+ MO Branch Influenza Virus 2018-08-20 Completed Universit y of [facility] IM 00:00:00 [place] [facility] Multi-dose 6+ MO Branch Influenza Virus 2018-08-20 Completed Universit y of Vaccine [facility] IM 00:00:00 [place] [facility] Multi-dose 6+ MO Branch Influenza Virus 2018-08-20 Completed Universit y of [facility]ine [facility] IM 00:00:00 [place] [facility] Multi-dose 6+ MO Branch Influenza Virus 2018-08-20 Completed Universit y of [facility]ine [facility] IM 00:00:00 [place] [facility] Multi-dose 6+ MO Branch Influenza Virus 2018-08-20 Completed Universit y of Vaccine [facility] IM 00:00:00 [place] [facility] Multi-dose 6+ MO Branch Influenza Virus 2018-08-20 Completed Universit y of Vaccine [facility] IM 00:00:00 [place] [facility] Multi-dose 6+ MO Branch Influenza Virus 2018-08-20 Completed Universit y of Vaccine [facility] IM 00:00:00 [place] [facility] Multi-dose 6+ MO Branch Influenza Virus 2018-08-20 Completed Universit y of Vaccine [facility] IM 00:00:00 [place] [facility] Multi-dose 6+ MO Branch Influenza Virus 2018-08-20 Completed Universit y of Vaccine [facility] IM 00:00:00 [place] [facility] Multi-dose 6+ MO Branch Influenza Virus 2018-08-20 Completed Universit y of Vaccine [facility] IM 00:00:00 [place] [facility] Multi-dose 6+ MO Branch Influenza Virus 2018-08-20 Completed Universit y of Vaccine [facility] IM 00:00:00 [place] [facility] Multi-dose 6+ MO Branch Influenza Virus 2018-08-20 Completed Universit y of Vaccine [facility] IM 00:00:00 [place] [facility] Multi-dose 6+ MO Branch Influenza Virus 2018-08-20 Completed Universit y of Vaccine [facility] IM 00:00:00 [place] [facility] Multi-dose 6+ MO Branch Influenza Virus 2018-08-20 Completed Universit y of Vaccine [facility] IM 00:00:00 [place] [facility] Multi-dose 6+ MO Branch Influenza Virus 2018-08-20 Completed Universit y of Vaccine [facility] IM 00:00:00 [place] [facility] Multi-dose 6+ MO Branch Influenza Virus 2018-08-20 Completed Universit y of Vaccine [facility] IM 00:00:00 [place] [facility] Multi-dose 6+ MO Branch Influenza Virus 2018-08-20 Completed Universit y of Vaccine [facility] IM 00:00:00 [place] [facility] Multi-dose 6+ MO Branch Influenza Virus 2018-08-20 Completed Universit y of Vaccine [facility] IM 00:00:00 [place] [facility] Multi-dose 6+ MO Branch Influenza Virus 2018-08-20 Completed Universit y of Vaccine [facility] IM 00:00:00 [place] [facility] Multi-dose 6+ MO Branch Influenza Virus 2018-08-20 Completed Universit [facility] HPV 2015-05-06 Completed [facility] 00:00:00 [facility] HPV 2015-05-06 Completed [facility] 00:00:00 [facility] HPV 2015-05-06 Completed [facility] 00:00:00 [facility] HPV 2015-05-06 Completed [facility] 00[facility]00:00 [facility] HPV 2015-05-06 Completed [facility] 00:00:00 [facility] HPV 2015-05-06 Completed [facility] 00:00:00 [facility] HPV 2015-05-06 Completed [facility] 00:00:00 [facility] HPV 2015-05-06 Completed [facility] 00:00:00 [facility] HPV 2015-05-06 Completed [facility] 00:00:00 [facility] HPV 2015-05-06 Completed [facility] 00:00:00 [facility] HPV 2015-05-06 Completed [facility] 00:00:00 [facility] HPV 2015-05-06 Completed [facility] 00:00:00 [facility] HPV 2015-05-06 Completed [facility] 00:00:00 [facility] HPV 2015-05-06 Completed [facility] 00:00:00 [facility] HPV 2015-05-06 Completed [facility] 00:00:00 [facility] HPV 2015-05-06 Completed [facility] 00:00:00 [facility] HPV 2015-05-06 Completed [facility] 00:00:00 [facility] HPV 2015-05-06 Completed [facility] 00:00:00 [facility] HPV 2015-05-06 Completed [facility] 00:00:00 [facility] HPV 2015-05-06 Completed [facility] 00:00:00 [facility] HPV 2015-05-06 Completed [facility] 00:00:00 [facility] HPV 2015-05-06 Completed [facility] 00:00:00 [facility] HPV 2015-05-06 Completed [facility] 00:00:00 [facility] HPV 2015-05-06 Completed [facility] 00:00:00 [facility] HPV 2015-05-06 Completed [facility] 00:00:00 [facility] HPV 2015-05-06 Completed [facility] 00:00:00 [facility] HPV 2015-05-06 Completed [facility] 00:00:00 [facility] HPV 2015-05-06 Completed [facility] 00:00:00 [facility] HPV 2015-05-06 Completed [facility] 00:00:00 [facility] HPV 2015-05-06 Completed [facility] 00:00:00 [facility] HPV 2015-05-06 Completed [facility] 00:00:00 [facility] HPV 2015-05-06 Completed [facility] 00:00:00 [facility] HPV 2015-05-06 Completed [facility] 00:00:00 [facility] HPV 2015-05-06 Completed [facility] 00:00:00 [facility] HPV 2015-05-06 Completed [facility] 00:00:00 [facility] HPV 2015-05-06 Completed [facility] 00:00:00 [facility] HPV 2015-05-06 Completed [facility] 00:00:00 [facility] HPV 2015-05-06 Completed [facility] 00:00:00 [facility] HPV 2015-05-06 Completed [facility] 00:00:00 [facility] HPV 2015-05-06 Completed [facility] 00:00:00 [facility] HPV 2015-05-06 Completed [facility] 00:00:00 [facility] HPV 2015-05-06 Completed [facility] 00:00:00 [facility] HPV 2015-05-06 Completed [facility] 00:00:00 [facility] HPV 2015-05-06 Completed [facility] 00:00:00 [facility] HPV 2015-05-06 Completed [facility] 00:00:00 [facility] HPV 2015-05-06 Completed [facility] 00:00:00 [facility] HPV 2015-05-06 Completed [facility] 00:00:00 [facility] HPV 2015-05-06 Completed [facility] 00:00:00 [facility] HPV 2015-05-06 Completed [facility] 00:00:00 [facility] HPV 2015-05-06 Completed [facility] 00:00:00 [facility] HPV 2015-01-02 Completed [facility] 00:00:00 [facility] MMR 2015-01-02 Completed [facility] 00:00:00 [facility] HPV 2015-01-02 Completed [facility] 00:00:00 [facility] MMR 2015-01-02 Completed [facility] 00:00:00 [facility] HPV 2015-01-02 Completed [facility] 00:00:00 [facility] MMR 2015-01-02 Completed [facility] 00:00:00 [facility] HPV 2015-01-02 Completed [facility] 00:00:00 [facility] MMR 2015-01-02 Completed [facility] 00:00:00 [facility] HPV 2015-01-02 Completed [facility] 00:00:00 [facility] MMR 2015-01-02 Completed [facility] 00:00:00 [facility] HPV 2015-01-02 Completed [facility] 00:00:00 [facility] MMR 2015-01-02 Completed [facility] 00:00:00 [facility] HPV 2015-01-02 Completed [facility] 00:00:00 [facility] HPV 2015-01-02 Completed [facility] 00:00:00 [facility] MMR 2015-01-02 Completed [facility] 00:00:00 [facility] MMR 2015-01-02 Completed [facility] 00:00:00 [facility] HPV 2015-01-02 Completed [facility] 00:00:00 [facility] MMR 2015-01-02 Completed [facility] 00:00:00 [facility] HPV 2015-01-02 Completed [facility] 00:00:00 [facility] MMR 2015-01-02 Completed [facility] 00:00:00 [facility] HPV 2015-01-02 Completed [facility] 00:00:00 [facility] MMR 2015-01-02 Completed [facility] 00:00:00 [facility] HPV 2015-01-02 Completed [facility] 00:00:00 [facility] MMR 2015-01-02 Completed [facility] 00:00:00 [facility] HPV 2015-01-02 Completed [facility] 00:00:00 [facility] MMR 2015-01-02 Completed [facility] 00:00:00 [facility] HPV 2015-01-02 Completed [facility] 00:00:00 [facility] MMR 2015-01-02 Completed [facility] 00:00:00 [facility] HPV 2015-01-02 Completed [facility] 00:00:00 [facility] MMR 2015-01-02 Completed [facility] 00:00:00 [facility] HPV 2015-01-02 Completed [facility] 00:00:00 [facility] MMR 2015-01-02 Completed [facility] 00:00:00 [facility] HPV 2015-01-02 Completed [facility] 00:00:00 [facility] MMR 2015-01-02 Completed [facility] 00:00:00 [facility] HPV 2015-01-02 Completed [facility] 00:00:00 [facility] MMR 2015-01-02 Completed [facility] 00:00:00 [facility] HPV 2015-01-02 Completed [facility] 00:00:00 [facility] MMR 2015-01-02 Completed [facility] 00:00:00 [facility] HPV 2015-01-02 Completed [facility] 00:00:00 [facility] HPV 2015-01-02 Completed [facility] 00:00:00 [facility] MMR 2015-01-02 Completed [facility] 00:00:00 [facility] MMR 2015-01-02 Completed [facility] 00:00:00 [facility] HPV 2015-01-02 Completed [facility] 00:00:00 [facility] MMR 2015-01-02 Completed [facility] 00:00:00 [facility] HPV 2015-01-02 Completed [facility] 00:00:00 [facility] MMR 2015-01-02 Completed [facility] 00:00:00 [facility] HPV 2015-01-02 Completed [facility] 00:00:00 [facility] MMR 2015-01-02 Completed [facility] 00:00:00 [facility] HPV 2015-01-02 Completed [facility] 00:00:00 [facility] MMR 2015-01-02 Completed [facility] 00:00:00 [facility] HPV 2015-01-02 Completed [facility] 00:00:00 [facility] MMR 2015-01-02 Completed [facility] 00:00:00 [facility] HPV 2015-01-02 Completed [facility] 00:00:00 [facility] MMR 2015-01-02 Completed [facility] 00:00:00 [facility] HPV 2015-01-02 Completed [facility] 00:00:00 [facility] MMR 2015-01-02 Completed [facility] 00:00:00 [facility] HPV 2015-01-02 Completed [facility] 00:00:00 [facility] MMR 2015-01-02 Completed [facility] 00:00:00 [facility] HPV 2015-01-02 Completed [facility] 00:00:00 [facility] MMR 2015-01-02 Completed [facility] 00:00:00 [facility] HPV 2015-01-02 Completed [facility] 00:00:00 [facility] MMR 2015-01-02 Completed [facility] 00:00:00 [facility] HPV 2015-01-02 Completed [facility] 00:00:00 [facility] MMR 2015-01-02 Completed [facility] 00:00:00 [facility] HPV 2015-01-02 Completed [facility] 00:00:00 [facility] MMR 2015-01-02 Completed [facility] 00:00:00 [facility] HPV 2015-01-02 Completed [facility] 00:00:00 [facility] MMR 2015-01-02 Completed [facility] 00:00:00 [facility] HPV 2015-01-02 Completed [facility] 00:00:00 [facility] MMR 2015-01-02 Completed [facility] 00:00:00 [facility] HPV 2015-01-02 Completed [facility] 00:00:00 [facility] MMR 2015-01-02 Completed [facility] 00:00:00 [facility] HPV 2015-01-02 Completed [facility] 00:00:00 [facility] MMR 2015-01-02 Completed [facility] 00:00:00 [facility] HPV 2015-01-02 Completed [facility] 00:00:00 [facility] MMR 2015-01-02 Completed [facility] 00:00:00 [facility] HPV 2015-01-02 Completed [facility] 00:00:00 [facility] MMR 2015-01-02 Completed [facility] 00:00:00 [facility] HPV 2015-01-02 Completed [facility] 00:00:00 [facility] MMR 2015-01-02 Completed [facility] 00:00:00 [facility] HPV 2015-01-02 Completed [facility] 00:00:00 [facility] MMR 2015-01-02 Completed [facility] 00:00:00 [facility] HPV 2015-01-02 Completed [facility] 00:00:00 [facility] MMR 2015-01-02 Completed [facility] 00:00:00 [facility] HPV 2015-01-02 Completed [facility] 00:00:00 [facility] MMR 2015-01-02 Completed [facility] 00:00:00 [facility] HPV 2015-01-02 Completed [facility] 00:00:00 [facility] MMR 2015-01-02 Completed [facility] 00:00:00 [facility] HPV 2015-01-02 Completed [facility] 00:00:00 [facility] MMR 2015-01-02 Completed [facility] 00:00:00 [facility] HPV 2015-01-02 Completed [facility] 00:00:00 [facility] HPV 2015-01-02 Completed [facility] 00:00:00 [facility] MMR 2015-01-02 Completed [facility] 00:00:00 [facility] MMR 2015-01-02 Completed [facility] 00:00:00 [facility] HPV 2015-01-02 Completed [facility] 00:00:00 [facility] MMR 2015-01-02 Completed [facility] 00:00:00 [facility] HPV 2015-01-02 Completed [facility] 00:00:00 [facility] MMR 2015-01-02 Completed [facility] 00:00:00 [facility] HPV 2015-01-02 Completed [facility] 00:00:00 [facility] MMR 2015-01-02 Completed [facility] 00:00:00 [facility] HPV 2014-11-06 Completed [facility] 00:00:00 [facility] HPV 2014-11-06 Completed [facility] 00:00:00 [facility] HPV 2014-11-06 Completed [facility] 00:00:00 [facility] HPV 2014-11-06 Completed [facility] 00:00:00 [facility] HPV 2014-11-06 Completed [facility] 00:00:00 [facility] HPV 2014-11-06 Completed [facility] 00:00:00 [facility] HPV 2014-11-06 Completed [facility] 00:00:00 [facility] HPV 2014-11-06 Completed [facility] 00:00:00 [facility] HPV 2014-11-06 Completed [facility] 00:00:00 [facility] HPV 2014-11-06 Completed [facility] 00:00:00 [facility] HPV 2014-11-06 Completed [facility] 00:00:00 [facility] HPV 2014-11-06 Completed [facility] 00:00:00 [facility] HPV 2014-11-06 Completed [facility] 00:00:00 [facility] HPV 2014-11-06 Completed [facility] 00:00:00 [facility] HPV 2014-11-06 Completed [facility] 00:00:00 [facility] HPV 2014-11-06 Completed [facility] 00:00:00 [facility] HPV 2014-11-06 Completed [facility] 00:00:00 [facility] HPV 2014-11-06 Completed [facility] 00:00:00 [facility] HPV 2014-11-06 Completed [facility] 00:00:00 [facility] HPV 2014-11-06 Completed [facility] 00:00:00 [facility] HPV 2014-11-06 Completed [facility] 00:00:00 [facility] HPV 2014-11-06 Completed [facility] 00:00:00 [facility] HPV 2014-11-06 Completed [facility] 00:00:00 [facility] HPV 2014-11-06 Completed [facility] 00:00:00 [facility] HPV 2014-11-06 Completed [facility] 00:00:00 [facility] HPV 2014-11-06 Completed [facility] 00:00:00 [facility] HPV 2014-11-06 Completed [facility] 00:00:00 [facility] HPV 2014-11-06 Completed [facility] 00:00:00 [facility] HPV 2014-11-06 Completed [facility] 00:00:00 [facility] HPV 2014-11-06 Completed [facility] 00:00:00 [facility] HPV 2014-11-06 Completed [facility] 00:00:00 [facility] HPV 2014-11-06 Completed [facility] 00:00:00 [facility] HPV 2014-11-06 Completed [facility] 00:00:00 [facility] HPV 2014-11-06 Completed [facility] 00:00:00 [facility] HPV 2014-11-06 Completed [facility] 00:00:00 [facility] HPV 2014-11-06 Completed [facility] 00:00:00 [facility] HPV 2014-11-06 Completed [facility] 00:00:00 [facility] HPV 2014-11-06 Completed [facility] 00:00:00 [facility] HPV 2014-11-06 Completed [facility] 00:00:00 [facility] HPV 2014-11-06 Completed [facility] 00:00:00 [facility] HPV 2014-11-06 Completed [facility] 00:00:00 [facility] HPV 2014-11-06 Completed [facility] 00:00:00 [facility] HPV 2014-11-06 Completed [facility] 00:00:00 [facility] HPV 2014-11-06 Completed [facility] 00:00:00 [facility] HPV 2014-11-06 Completed [facility] 00:00:00 [facility] HPV 2014-11-06 Completed [facility] 00:00:00 [facility] HPV 2014-11-06 Completed [facility] 00:00:00 [facility] HPV 2014-11-06 Completed [facility] 00:00:00 [facility] HPV 2014-11-06 Completed [facility] 00:00:00 [facility] HPV 2014-11-06 Completed [facility] 00:00:00 [facility] Td 2008-10-16 Completed [facility] 00:00:00 [facility] Td 2008-10-16 Completed [facility] 00:00:00 [facility] Td 2008-10-16 Completed [facility] 00:00:00 [facility] Td 2008-10-16 Completed [facility] 00:00:00 [facility] Td 2008-10-16 Completed [facility] 00:00:00 [facility] Td 2008-10-16 Completed [facility] 00:00:00 [facility] Td 2008-10-16 Completed [facility] 00:00:00 [facility] Td 2008-10-16 Completed [facility] 00:00:00 [facility] Td 2008-10-16 Completed [facility] 00:00:00 [facility] Td 2008-10-16 Completed [facility] 00:00:00 [facility] Td 2008-10-16 Completed [facility] 00:00:00 [facility] Td 2008-10-16 Completed [facility] 00:00:00 [facility] Td 2008-10-16 Completed [facility] 00:00:00 [facility] Td 2008-10-16 Completed [facility] 00:00:00 [facility] Td 2008-10-16 Completed [facility] 00:00:00 [facility] Td 2008-10-16 Completed [facility] 00:00:00 [facility] Td 2008-10-16 Completed [facility] 00:00:00 [facility] Td 2008-10-16 Completed [facility] 00:00:00 [facility] Td 2008-10-16 Completed [facility] 00:00:00 [facility] Td 2008-10-16 Completed [facility] 00:00:00 [facility] Td 2008-10-16 Completed [facility] 00:00:00 [facility] Td 2008-10-16 Completed [facility] 00:00:00 [facility] Td 2008-10-16 Completed [facility] 00:00:00 [facility] Td 2008-10-16 Completed [facility] 00:00:00 [facility] Td 2008-10-16 Completed [facility] 00:00:00 [facility] Td 2008-10-16 Completed [facility] 00:00:00 [facility] Td 2008-10-16 Completed [facility] 00:00:00 [facility] Td 2008-10-16 Completed [facility] 00:00:00 [facility] Td 2008-10-16 Completed [facility] 00:00:00 [facility] Td 2008-10-16 Completed [facility] 00:00:00 [facility] Td 2008-10-16 Completed [facility] 00:00:00 [facility] Td 2008-10-16 Completed [facility] 00:00:00 [facility] Td 2008-10-16 Completed [facility] 00:00:00 [facility] Td 2008-10-16 Completed [facility] 00:00:00 [facility] Td 2008-10-16 Completed [facility] 00:00:00 [facility] Td 2008-10-16 Completed [facility] 00:00:00 [facility] Td 2008-10-16 Completed [facility] 00:00:00 [facility] Td 2008-10-16 Completed [facility] 00:00:00 [facility] Td 2008-10-16 Completed [facility] 00:00:00 [facility] Td 2008-10-16 Completed [facility] 00:00:00 [facility] Td 2008-10-16 Completed [facility] 00:00:00 [facility] Td 2008-10-16 Completed [facility] 00:00:00 [facility] Td 2008-10-16 Completed [facility] 00:00:00 [facility] Td 2008-10-16 Completed [facility] 00:00:00 [facility] Td 2008-10-16 Completed [facility] 00:00:00 [facility] Td 2008-10-16 Completed [facility] 00:00:00 [facility] Td 2008-10-16 Completed [facility] 00:00:00 [facility] Td 2008-10-16 Completed [facility] 00:00:00 [facility] Td 2008-10-16 Completed [facility] 00:00:00 [facility] Td 2008-10-16 Completed [facility] 00:00:00 [facility] Vital Signs Vital Name Observation Time Observation Value Comments Source Systolic blood 2020-09-07 16:25:00 103 mm[Hg] Univer sity of pressure [facility] Diastolic blood 2020-09-07 16:25:00 67 mm[Hg] Unive rsity of pressure [facility] Heart rate 2020-09-07 16:25:00 61 /min [facility] Body temperature 2020-09-07 16:25:00 36.83 [place] [facility] Respiratory rate 2020-09-07 16:25:00 16 /min Univ ersity of [facility] Body height 2020-09-07 16:25:00 165.1 cm [facility]i ty of [facility] Body weight 2020-09-07 16:25:00 74.299 kg [facility] BMI 2020-09-07 16:25:00 27.26 kg/m2 [facility] of [facility] Systolic blood 2020-09-07 16:25:00 103 mm[Hg] Univer sity of pressure [facility] Diastolic blood 2020-09-07 16:25:00 67 mm[Hg] Unive rsity of pressure [facility] Heart rate 2020-09-07 16:25:00 61 /min [facility] Body temperature 2020-09-07 16:25:00 36.83 [place] [facility] Respiratory rate 2020-09-07 16:25:00 16 /min Univ ersity of [facility] Body height 2020-09-07 16:25:00 165.1 cm [facility] Body weight 2020-09-07 16:25:00 74.299 kg [facility] BMI 2020-09-07 16:25:00 27.26 kg/m2 [facility] Systolic blood 2020-08-16 13:55:00 125 mm[Hg] Univer sity of pressure [facility] Diastolic blood 2020-08-16 13:55:00 85 mm[Hg] Unive rsity of pressure [facility] Heart rate 2020-08-16 13:55:00 73 /min [facility]i ty of [facility] Body temperature 2020-08-16 13:55:00 37 [place] [facility] Respiratory rate 2020-08-16 13:55:00 17 /min Univ ers[facility] of [facility] Oxygen saturation in 2020-08-16 13:55:00 97 /min [facility] of Arterial blood by [facility] kavon Pulse oximetry Branch Body height 2020-08-14 15:45:00 165.1 cm [facility] Body weight 2020-08-14 15:45:00 83.689 kg [facility] BMI 2020-08-14 15:45:00 30.70 kg/m2 [facility] Systolic blood 2020-08-16 13:55:00 125 mm[Hg] Univer sity of pressure [facility] Diastolic blood 2020-08-16 13:55:00 85 mm[Hg] Unive rsity of pressure [facility] Heart rate 2020-08-16 13:55:00 73 /min [facility] Body temperature 2020-08-16 13:55:00 37 [place] [facility] Respiratory rate 2020-08-16 13:55:00 17 /min Univ ers[facility] of [facility] Oxygen saturation in 2020-08-16 13:55:00 97 /min [facility] of Arterial blood by [facility] Pulse oximetry Branch Body height 2020-08-14 15:45:00 165.1 cm [facility] Body weight 2020-08-14 15:45:00 83.689 kg [facility] BMI 2020-08-14 15:45:00 30.70 kg/m2 [facility] Heart rate 2020-08-11 05:30:00 83 /min [facility] Oxygen saturation in 2020-08-11 04:45:00 98 /min [facility] of Arterial blood by [facility] kavon Pulse oximetry Branch Systolic blood 2020-08-11 04:39:00 113 mm[Hg] Univer sity of pressure [facility] Diastolic blood 2020-08-11 04:39:00 78 mm[Hg] Unive rsity of pressure [facility] Body temperature 2020-08-11 04:39:00 36.83 [place] [facility] Respiratory rate 2020-08-11 04:39:00 16 /min [facility] Body height 2020-08-11 04:39:00 165.1 cm [facility] Body weight 2020-08-11 04:39:00 83.462 kg Universi ty of [facility] BMI 2020-08-11 04:39:00 30.62 kg/m2 [facility] of [facility] Heart rate 2020-08-11 05:30:00 83 /min [facility] of [facility] Oxygen saturation in 2020-08-11 04:45:00 98 /min [facility] of Arterial blood by [facility] Pulse oximetry Branch Systolic blood 2020-08-11 04:39:00 113 mm[Hg] Univer sity of pressure [facility] Diastolic blood 2020-08-11 04:39:00 78 mm[Hg] Unive rsity of pressure [facility] Body temperature 2020-08-11 04:39:00 36.83 [place] [facility] Respiratory rate 2020-08-11 04:39:00 16 /min Univ ersity of [facility] Body height 2020-08-11 04:39:00 165.1 cm [facility] Body weight 2020-08-11 04:39:00 83.462 kg [facility] of [facility] BMI 2020-08-11 04:39:00 30.62 kg/m2 [facility] Systolic blood 2020-08-06 19:05:00 119 mm[Hg] Univer sity of pressure [facility] Diastolic blood 2020-08-06 19:05:00 72 mm[Hg] Unive rsity of pressure [facility] Heart rate 2020-08-06 19:05:00 91 /min [facility] Body temperature 2020-08-06 19:05:00 36.72 [place] [facility] Respiratory rate 2020-08-06 19:05:00 16 /min Univ ersity of [facility] Body height 2020-08-06 19:05:00 165.1 cm [facility] Body weight 2020-08-06 19:05:00 81.279 kg [facility] of [facility] BMI 2020-08-06 19:05:00 29.82 kg/m2 [facility] Systolic blood 2020-08-06 19:05:00 119 mm[Hg] Univer sity of pressure [facility] Diastolic blood 2020-08-06 19:05:00 72 mm[Hg] Unive rsity of pressure [facility] Heart rate 2020-08-06 19:05:00 91 /min [facility] Body temperature 2020-08-06 19:05:00 36.72 [place] [facility] Respiratory rate 2020-08-06 19:05:00 16 /min Univ [facility] Body height 2020-08-06 19:05:00 165.1 cm [facility] Body weight 2020-08-06 19:05:00 81.279 kg [facility] BMI 2020-08-06 19:05:00 29.82 kg/m2 [facility] Systolic blood 2020-07-31 18:04:00 108 mm[Hg] Univer sity of pressure [facility] Diastolic blood 2020-07-31 18:04:00 68 mm[Hg] Unive rsity of pressure [facility] Heart rate 2020-07-31 18:04:00 81 /min [facility] Body temperature 2020-07-31 18:04:00 37 [place] [facility] Respiratory rate 2020-07-31 18:04:00 16 /min [facility] Body height 2020-07-31 18:04:00 165.1 cm [facility] Body weight 2020-07-31 18:04:00 80.105 kg [facility] BMI 2020-07-31 18:04:00 29.39 kg/m2 [facility] Systolic blood 2020-07-24 14:32:00 115 mm[Hg] [facility] Diastolic blood 2020-07-24 14:32:00 72 mm[Hg] [facility] Heart rate 2020-07-24 14:32:00 104 /min [facility] [place] [facility] Body temperature 2020-07-24 14:32:00 36.72 Delma [facility] Respiratory rate 2020-07-24 14:32:00 16 /min [facility] Body height 2020-07-24 14:32:00 165.1 cm [facility] Body weight 2020-07-24 14:32:00 79.153 kg [facility] BMI 2020-07-24 14:32:00 29.04 kg/m2 [facility] Systolic blood 2020-07-10 16:09:00 115 mm[Hg] [facility] Diastolic blood 2020-07-10 16:09:00 69 mm[Hg] [facility] Heart rate 2020-07-10 16:09:00 81 /min [facility] Body temperature 2020-07-10 16:09:00 36.39 Delma [facility] Respiratory rate 2020-07-10 16:09:00 16 /min [facility] Body height 2020-07-10 16:09:00 165.1 cm [facility] Body weight 2020-07-10 16:09:00 76.885 kg [facility] BMI 2020-07-10 16:09:00 28.21 kg/m2 [facility] Systolic blood 2020-06-26 13:58:00 110 mm[Hg] [facility] Diastolic blood 2020-06-26 13:58:00 73 mm[Hg] [facility] Heart rate 2020-06-26 13:58:00 99 /min [facility] Body temperature 2020-06-26 13:58:00 36.11 Delma [facility] Respiratory rate 2020-06-26 13:58:00 16 /min [facility] Body height 2020-06-26 13:58:00 162.6 cm [facility] Body weight 2020-06-26 13:58:00 74.078 kg [facility] BMI 2020-06-26 13:58:00 28.03 kg/m2 [facility] Systolic blood 2020-06-12 15:31:00 108 mm[Hg] [facility] Diastolic blood 2020-06-12 15:31:00 69 mm[Hg] [facility] Heart rate 2020-06-12 15:31:00 97 /min [facility] Body temperature 2020-06-12 15:31:00 36.11 Del[place] [facility] Respiratory rate 2020-06-12 15:31:00 16 /min [facility] Body height 2020-06-12 15:31:00 162.6 cm [facility] Body weight 2020-06-12 15:31:00 72.689 kg [facility] BMI 2020-06-12 15:31:00 27.51 kg/m2 [facility] Systolic blood 2020-05-28 16:20:00 114 mm[Hg] [facility] Diastolic blood 2020-05-28 16:20:00 69 mm[Hg] [facility] Heart rate 2020-05-28 16:20:00 85 /min [facility] Body temperature 2020-05-28 16:20:00 36.11 Del[place] [facility] Respiratory rate 2020-05-28 16:20:00 16 /min [facility] Body height 2020-05-28 16:20:00 162.6 cm [facility] Body weight 2020-05-28 16:20:00 70.988 kg [facility] BMI 2020-05-28 16:20:00 26.86 kg/m2 [facility] Systolic blood 2020-04-28 15:52:00 114 mm[Hg] [facility] Diastolic blood 2020-04-28 15:52:00 73 mm[Hg] [facility] Heart rate 2020-04-28 15:52:00 87 /min [facility] Body temperature 2020-04-28 15:52:00 36.22 Del[place] [facility] Respiratory rate 2020-04-28 15:52:00 16 /min [facility] Body height 2020-04-28 15:52:00 162.6 cm [facility] Body weight 2020-04-28 15:52:00 68.266 kg [facility] BMI 2020-04-28 15:52:00 25.83 kg/m2 [facility] Systolic blood 2020-03-31 15:19:00 97 mm[Hg] [facility] Diastolic blood 2020-03-31 15:19:00 63 mm[Hg] [facility] Heart rate 2020-03-31 15:19:00 69 /min [facility] Body temperature 2020-03-31 15:19:00 36.39 Delma [facility] Respiratory rate 2020-03-31 15:19:00 16 /min [facility] Body height 2020-03-31 15:19:00 162.6 cm [facility] Body weight 2020-03-31 15:19:00 67.841 kg [facility] BMI 2020-03-31 15:19:00 25.67 kg/m2 [facility] Body weight 2020-02-14 18:17:00 63.504 kg [facility] BMI 2020-02-14 18:17:00 23.30 kg/m2 [facility] Systolic blood 2020-02-04 16:13:00 115 mm[Hg] [facility] Diastolic blood 2020-02-04 16:13:00 70 mm[Hg] [facility] Heart rate 2020-02-04 16:13:00 79 /min [facility] Body temperature 2020-02-04 16:13:00 36.17 Delma [facility] Respiratory rate 2020-02-04 16:13:00 16 /min Univ [facility] of [facility] Body height 2020-02-04 16:13:00 165.1 cm [facility] Body weight 2020-02-04 16:13:00 63.645 kg [facility] BMI 2020-02-04 16:13:00 23.35 kg/m2 [facility] Systolic blood 2020-01-02 14:54:00 105 mm[Hg] [facility] Diastolic blood 2020-01-02 14:54:00 64 mm[Hg] [facility] Heart rate 2020-01-02 14:54:00 83 /min [facility] Body temperature 2020-01-02 14:54:00 37 Delma [facility] Respiratory rate 2020-01-02 14:54:00 16 /min [facility] Body height 2020-01-02 14:54:00 165.1 cm [facility] Body weight 2020-01-02 14:54:00 62.171 kg [facility] BMI 2020-01-02 14:54:00 22.81 kg/m2 [facility] Procedures Procedure Date / Time Performing Clinician Source Performed CBC WITH DIFF 2020-08-15 09:11:00 Felecia Villavicencio [facility] VENOUS CORD GAS 2020-08-15 00:55:00 Verito Davis [facility] CBC WITH DIFF 2020-08-14 10:24:00 Edel Carballo [facility] HEPATITIS B SURFACE 2020-08-14 10:24:00 Edel Carballo [facility] ADC OR ISA ONLY - RPR 2020-08-14 10:24:00 Edel Carballo [facility] HIV 1/2 AG-AB WITH REFLEX 2020-08-14 [facility] ABO GROUPING 2020-08-14 10:20:00 Edel Carballo [facility] RHO (D) IMMUNE GLOBULIN 2020-08-14 10:20:00 Felecia Villavicencio [facility] COVID-19 (ID NOW RAPID 2020-08-14 09:21:00 Edel Carballo [facility] TESTING) [facility] ADC ONLY - FERN TEST 2020-08-14 09:05:00 Edel Carballo [facility] L&D VISIT (NON-DELIVERED) 2020-08-14 05:01:00 Doctor Unassigned, [facility] NON-STRESS TEST 2020-08-06 19:54:52 Mally Henry U [facility] POCT URINALYSIS 2020-08-06 19:06:00 Mally Henry [facility] POCT URINALYSIS 2020-07-31 00:00:[address] [facility] POCT URINALYSIS 2020-07-24 14:33:[address] [facility] POCT URINALYSIS 2020-07-10 00:00:00 Mally Henry Univers y [facility] POCT URINALYSIS 2020-06-26 14:01:[address] [facility] POCT URINALYSIS 2020-06-12 15:33:00 Mally Henry [facility] STERILIZATION CONSENT 2020-06-12 05:01:00 Doctor Unassigned, [facility] [place] [facility] [place] [facility] POCT URINALYSIS 2020-05-28 16:24:00 Mally Henry [facility] POCT URINALYSIS 2020-04-28 15:54:00 Mally Henry [facility] POCT URINALYSIS 2020-03-31 15:20:00 Mally Henry [facility] POCT URINALYSIS 2020-02-04 19:05:00 Mally Henry [facility] PATIENT CORRESPONDENCE 2020-02-04 05:01:00 Doctor Unassigned, [facility] [place] (LETTERS, USPS [place] [facility] DOCUMENTATION) FLU VACC ([id number]), 6+ 2020-01-02 15:11:35 Mally Henry [facility] MONTHS, IM, QUAD [facility] POCT TEST 2020-01-02 14:49:00 Mally Henry Uni versity [facility] POCT URINALYSIS W/O 2020-01-02 14:49:00 Mally Henry Uni versity [facility] SPECIFIC GRAVITY [facility] NOTICE OF PRIVACY 2020-01-02 14:17:14 Doctor Unassigned, [facility] PRACTICES [facility] [place] Encounters Start End Encounter Admission Attending Care Care Encounter Source Date/Time Date/Time Type Type Clinicians Facility Department ID 2021-08-14 Outpatient P [facility] [id number] Univers 01:11:54 ity [facility] 2021-08-14 Emergency [facility] [id number] [facility]-08-14 Outpatient P [facility] [id number] Univers 01:11: ity of [facility] 2020-09-28 2020-09-28 Outpatient R RENEE [facility] [id number] Univers 10:30:00 10:30:00 YEHUDA [id number] ity o f [facility] 2020-09-28 2020-09-28 Outpatient R RENEE [facility] [id number] Univers 10:30:00 10:30:00 EUGENIENDA ity o f [facility] 2020-09-07 2020-09-07 [facility] 1.2.840.114 [id number] 10:06:40 10:21:40 Rosmaminda R CHURN TENDER 350.1.13.10 Visit REGIONAL 4.2.7.2.686 MATERNAL [id number] & CHILD [address] [place] [address] 2020-09-07 2020-09-07 Routine Renee [facility] 1.2.840.114 [id number] Univers 10:06:40 10:21:40 Rosmaminda R CHURN TENDER 350.1.13.10 ity of Visit REGIONAL 4.2.7.2.686 [place] as MATERNAL [id number] Med ical & CHILD [address] [place] [address] 2020-09-07 2020-09-07 Outpatient R RENEE [facility] [id number] Univers 10:15:00 10:15:00 EUGENIENDA ity o [facility] 2020-08-26 2020-08-26 Telephone [facility] 1.2.840.114 [id number] 00:00:00 00:00:00 Mally C CHURN TENDER 350.1.13.10 REGIONAL 4.2.7.2.686 MATERNAL [id number] & CHILD [address] [place] [address] 2020-08-26 2020-08-26 [facility] 1.2.840.114 [id number] Univers 00:00:00 00:00:00 Mally C CHURN TENDER 350.1.13.10 ity of REGIONAL 4.2.7.2.686 [place] as MATERNAL [id number] [facility] ical & CHILD [address] [place] [address] 2020-08-14 2020-08-16 [facility] Edel Carballo 1.2.840.114 [id number] [facility] 03:09:00 12:55:00 Encounter Vonnie [place] 350. 1.13.10 ity of [facility] 4.2.7.2.686 [place] as [id number] [place] [id number] [place] 2020-08-14 2020-08-16 [facility] Edel Carballo 1.2.840.114 [id number] 03:09:00 12:55:00 Encounter Vonnie Kearney 350. 1.13.10 [facility] 4.2.7.2.686 [id number] [facility] 2020-08-14 2020-08-14 [facility] [id number] Univers 08:00:00 08:00:00 MALLY [id number] josé luisy o f [facility] 2020-08-14 2020-08-14 [facility] [id number] Univers 08:00:00 08:00:00 MALLY serna o f [facility] 2020-08-14 2020-08-14 Orders Doctor HOFF 1.2.840.114 [id number] Univers 00:00:00 00:00:00 Only Unassigned, DILIP 350.1.13.10 ity of [place] [facility] 4.2.7.2.686 [place] as [id number] [facility] 009 [place] 2020-08-14 2020-08-14 Orders Doctor HOFF 1.2.840.114 [id number] 00:00:00 00:00:00 Only Unassigned, DILIP 350.1.13.10 [place] [facility] 4.2.7.2.686 [id number] 2020-08-10 2020-08-11 [facility] Bob Garcian [facility] 1.2.840.114 [id number] [facility] 23:10:00 01:00:00 Encounter [place] 350.1.13.10 ity of [place].7.2.[place] [id number] [facility] 083 [place] 2020-08-10 2020-08-11 [facility] Juan Francisco Garcia [facility] 1.2.840.114 [id number] 23:10:00 01:00:00 Encounter [place] 350.1.13.10 [place] 4.2.7.2.686 [place] [id number] 2020-08-06 2020-08-06 Routine Akinsipe, [facility] 1.2.173.153 [id number] [facility] 13:48:55 14:59:03 Mally C CHURN TENDER 350.1.13.10 ity of Visit REGIONAL 4.2.7.2.686 [place] as MATERNAL [id number] Med ical & CHILD [address] [place] [address] 2020-08-06 2020-08-06 [facility] 1.2.095.614 [id number] 13:48:55 14:59:03 Mally C CHURN TENDER 350.1.13.10 Visit REGIONAL 4.2.7.2.686 MATERNAL [id number] & CHILD [address] [place] [address] 2020-08-06 2020-08-06 Outpatient R AKINSIPE, [facility] [id number] Univers 14:00:00 14:00:00 MALLY [id number] ity o f [facility] 2020-08-06 2020-08-06 Outpatient R AKINSIPE, [facility] [id number] Univers 14:00:00 14:00:00 MALLY ity o f [facility] 2020-08-03 2020-08-03 Telephone [facility] 1.2.840.114 [id number] Univers 00:00:00 00:00:00 Mally C CHURN TENDER 350.1.13.10 ity of REGIONAL 4.2.7.2.686 [place] as MATERNAL [id number] Med ical & CHILD [address] [place] [address] 2020-08-03 2020-08-03 [facility] 1.2.840.114 [id number] 00:00:00 00:00:00 Mally C CHURN TENDER 350.1.13.10 REGIONAL 4.2.7.2.686 MATERNAL [id number] & CHILD [address] [place] [address] 2020-07-31 2020-07-31 Routine Akinsipe, [facility] 1.2.677.429 [id number] Univers 12:50:31 13:29:28 Mally C CHURN TENDER 350.1.13.10 ity of Visit REGIONAL 4.2.7.2.686 [place] as MATERNAL [id number] [facility] ical & CHILD [address] [place] [address] 2020-07-31 2020-07-31 Outpatient R AKINSIPE, [facility] [id number] Univers 13:00:00 13:00:00 MALLY [id number] ity o [facility] 2020-07-31 2020-07-31 Outpatient R AKINSIPE, [facility] [id number] Univers 13:00:00 13:00:00 MALLY ity o [facility] 2020-07-24 2020-07-24 Routine Akinsipe, [facility] [id number] Univers 09:28:35 09:47:20 Mally C CHURN TENDER 350.1.13.10 ity of Visit REGIONAL 4.2.7.2.686 [place] as MATERNAL [id number] [facility] & [address] 2020-07-24 2020-07-24 Outpatient R AKINSIPE, [facility] [id number] Univers 09:30:00 09:30:00 MALLY ity o [facility] 2020-07-24 2020-07-24 Outpatient R AKINSIPE, [facility] [id number] Univers 09:30:00 09:30:00 MALLY ity o [facility] 2020-07-22 2020-07-22 Telephone [place], [facility] 1.2.840.114 [id number] Univers 00:00:00 00:00:00 Mally C CHURN TENDER 350.1.13.10 ity of REGIONAL 4.2.7.2.686 [place] as MATERNAL [id number] [facility] & CHILD [address] [place] [address] 2020-07-10 2020-07-10 Routine Akins[place], [facility] 1.2.542.994 [id number] Univers 11:02:49 11:38:13 Mally C CHURN TENDER 350.1.13.10 ity of Visit REGIONAL 4.2.7.2.686 [place] as MATERNAL [id number] [facility] & CHILD [address] [place] [address] 2020-07-10 2020-07-10 Outpatient R AKINSIPE, [facility] [id number] Univers 11:00:00 11:00:00 MALLY [id number] ity o f [facility] 2020-07-10 2020-07-10 Outpatient R AKINS[place], [facility] [id number] Univers 11:00:00 11:00:00 MALLY ity o f [facility] 2020-06-26 2020-06-26 Routine Akins[place], [facility] [id number] Univers 08:50:42 09:05:42 Mally C CHURN TENDER 350.1.13.10 ity of Visit REGIONAL 4.2.7.2.686 [place] as MATERNAL [id number] [facility] & [address] 2020-06-26 2020-06-26 Outpatient R AKINS[place], [facility] [id number] Univers 09:00:00 09:00:00 MALLY [id number] ity o f [facility] 2020-06-26 2020-06-26 Outpatient R [place], [facility] [id number] Univers 09:00:00 09:00:00 MALLY ity o f [facility] 2020-06-16 2020-06-16 Outpatient R [place], [facility] [id number] Univers 09:30:00 09:30:00 MALLY [id number] ity o f [facility] 2020-06-16 2020-06-16 Outpatient R [place], [facility] [id number] Univers 09:30:00 09:30:00 MALLY ity o [facility] 2020-06-12 2020-06-12 Routine A[place], [facility] [id number] Univers 09:41:23 10:59:00 Mally C CHURN TENDER 350.1.13.10 ity of Visit REGIONAL 4.2.7.2.686 [place] as MATERNAL [id number] [facility] & CHILD [address] [place] [address] 2020-06-12 2020-06-12 Outpatient R CARL, [facility] [id number] Univers 10:30:00 10:30:00 MALLY [id number] ity o [facility] 2020-06-12 2020-06-12 Outpatient R CARL, [facility] [id number] Univers 10:30:00 10:30:00 MALLY ity o [facility] 2020-06-12 2020-06-12 Outpatient R CARL, [facility] [id number] Univers 09:30:00 09:30:00 MALLY ordonezjennifer o [facility] 2020-06-12 2020-06-12 Orders Doctor KAVYA 1.2.840.114 [id number] Univers 00:00:00 00:00:00 Only Unassigned, DILIP 350.1.13.10 ity of [facility] 4.2.7.2.686 [place] as [id number] [address] 2020-06-11 2020-06-11 Outpatient R CARL, [facility] [id number] Univers 10:30:00 10:30:00 MALLY [id number] josé luisy o [facility] 2020-06-11 2020-06-11 Outpatient R CARL, [facility] [id number] Univers 10:30:00 10:30:00 MALLY serna o [facility] 2020-06-01 2020-06-01 [facility], Ang-Rm[facility] 1.2.840. 114 [id number] Univers 08:45:01 08:51:02 Visit Mally Henry CHURN TENDER 350.1.13. 10 ity [facility] 4.2.7.2.686 [place] as MATERNAL [id number] Med ical & CHILD [address] [place] [address] 2020-06-01 2020-06-01 Outpatient R [facility] [id number] Univers 08:30:00 08:30:00 [id number] ity [facility] 2020-06-01 2020-06-01 Outpatient R CARL, [facility] [id number] Univers 08:30:00 08:30:00 MALLY serna o [facility] 2020-05-29 2020-05-29 Outpatient R [facility] [id number] Univers 08:30:00 08:30:00 [id number] ity [facility] 2020-05-29 2020-05-29 Outpatient R [facility] [id number] Univers 08:30:00 08:30:00 ity [facility] 2020-05-28 2020-05-28 Routine A[place], [facility] [id number] [id number] Univers 11:03:28 11:33:11 Mally C CHURN TENDER 350.1.13.10 ity of Visit REGIONAL 4.2.7.2.686 [place] as MATERNAL [id number] [facility] & CHILD [address] [place] [address] 2020-05-28 2020-05-28 Outpatient R AKINSIPE, [facility] [id number] Univers 11:00:00 11:00:00 MALLY [id number] josé luisy o [facility] 2020-05-28 2020-05-28 Outpatient R AKINS[place], [facility] [id number] Univers 11:00:00 11:00:00 MALLY ordonezy o [facility] 2020-05-26 2020-05-26 Outpatient R AKINS[place], [facility] [id number] Univers 12:45:00 12:45:00 MALLY [id number] ity o [facility] 2020-05-26 2020-05-26 Outpatient R AKINS[place], [facility] [id number] Univers 12:45:00 12:45:00 MALLY ordonezy o [facility] 2020-04-28 2020-04-28 Routine Akinsipe, [facility] [id number] Univers 10:43:31 11:38:20 Mally C CHURN TENDER 350.1.13.10 ity of Visit REGIONAL 4.2.7.2.686 [place] as MATERNAL [id number] [facility] & CHILD [address] [place] [address] 2020-04-28 2020-04-28 Outpatient R AKINSIPE, [facility] [id number] Univers 10:45:00 10:45:00 MALLY [id number] josé luisy o [facility] 2020-04-28 2020-04-28 Outpatient R AKINSIPE, [facility] [id number] Univers 10:45:00 10:45:00 MALLY ity o f [facility] 2020-04-13 2020-04-13 [facility] 1.2 .840.114 [id number] Univers 08:04:15 09:19:15 Visit Joanne Nogueira CHURN TENDER 350.1.13.10 ity of REGIONAL 4.2.7.2.686 [place] as MATERNAL [id number] [facility] ical & CHILD [address] [facility] 2020-04-13 2020-04-13 Outpatient R [facility] [id number] Univers 08:00:00 08:00:00 [id number] ity of [facility] 2020-04-13 2020-04-13 Outpatient P [facility] [id number] Univers 08:00:00 08:00:00 ity of [facility] 2020-04-13 2020-04-13 Telephone [facility] 1.2.840.114 [id number] Univers 00:00:00 00:00:00 Mally C CHURN TENDER 350.1.13.10 ity of REGIONAL 4.2.7.2.686 [place] as MATERNAL [id number] [facility] & CHILD [address] [place] [address] 2020-04-13 2020-04-13 Abstract [facility] 1.2.840.114 [id number] Univers 00:00:00 00:00:00 Mally C CHURN TENDER 350.1.13.10 ity of REGIONAL 4.2.7.2.686 [place] as MATERNAL [id number] [facility] & CHILD [address] [place] [address] 2020-03-31 2020-03-31 Routine [facility] [id number] Univers 10:05:38 10:46:23 Mally C CHURN TENDER 350.1.13.10 ity of Visit REGIONAL 4.2.7.2.686 [place] as MATERNAL [id number] [facility] ical & CHILD [address] [place] [address] 2020-03-31 2020-03-31 [facility] [id number] Univers 10:00:00 10:00:00 MALLY [id number] kareem o f [facility] 2020-03-31 2020-03-31 Outpatient R CARL [facility] [id number] Univers 10:00:00 10:00:00 MALLY serna o [facility] 2020-03-30 2020-03-30 Telephone ClintOlivier [facility] 1.2.840.11 [id number] Univers 00:00:00 00:00:00 [facility] 350.1.13.10 i ty of CL[place]2.7.2.[place] [id number] [address] 2020-03-03 2020-03-03 [facility]of [facility], [facility] 1.2.840. 114 [id number] Univers 09:41:40 10:18:30 Visit Mally Henry CHURN TENDER 350.1.13. 10 ity of REGIONAL 4.2.7.2.686 [place] as MATERNAL [id number] Med ical & CHILD [address] [place] [address] 2020-03-03 2020-03-03 Outpatient R [facility] [id number] Univers 10:15:00 10:15:00 [id number] [facility] 2020-03-03 2020-03-03 Outpatient R CARL [facility] [id number] Univers 10:15:00 10:15:00 MALLY weems [facility] 2020-03-02 2020-03-02 Telemedici [facility] 1.2.840.114 [id number] Univers 08:01:18 09:13:00 ne Visit Mally Schilling CHURN TENDER 350.1.13.10 ity of [facility] 4.2.7.2.686 [place] as MATERNAL [phone] [facility] ica & CHILD [address] [place] [address] 2020-03-02 2020-03-02 Outpatient R CARL [facility] [id number] Univers 08:30:00 08:30:00 MALLY [id number] kareem o [facility] 2020-03-02 2020-03-02 Outpatient R CARL [facility] [id number] Univers 08:30:00 08:30:00 MALLY weems [facility] 2020-03-02 2020-03-02 Joseph Weaver, UNIVERSIT 1.2.722.974 [id number] Univers 00:00:00 00:00:00 Management [facility] 350.1.13.10 ity of CL[place] [phone] [facility] [address] 2020-02-28 2020-02-28 Outpatient R [facility] [id number] -[id number] Univers 13:00:00 13:00:00 [id number] ity of [facility] 2020-02-28 2020-02-28 Outpatient R AKINSIPE, [facility] [id number] Univers 13:00:00 13:00:00 MALLY portillo [facility] 2020-02-27 2020-02-27 Joseph Weaver, UNIVERSIT 1.2.529.332 [id number] Univers 00:00:00 00:00:00 Management [facility] 350.1.13.10 it[place] [phone] [facility] [address] 2020-02-14 2020-02-14 Outpatient R [facility] [id number] -[id number] Univers 10:30:00 10:30:00 [id number] ity of [facility] 2020-02-14 2020-02-14 Outpatient P [facility] [id number] Univers 10:30:00 10:30:00 ity of [facility] 2020-02-14 2020-02-14 Telemedici Estela Esposito UNIVERSIT 1.2.840.114 [id number] Univers 08:09:28 08:54:28 ne Visit Olivier Jaramillo [facility] 350.1.13.10 ity [place] CL[place] [id number] [facility] [address] 2020-02-14 2020-02-14 Telephone Johnnykat [facility] 1.2.840.114 [id number] Univers 00:00:00 00:00:00 Mally Schilling CHURN TENDER 350.1.13.10 ity of REGIONAL 4.2.7.2.686 [place] as MATERNAL [phone] Med ical & CHILD [address] [place] [address] 2020-02-13 2020-02-13 Telephone TAM Bartlett 1.2.840.114 [id number] Univers 00:00:00 00:00:00 Mariann Saima Jennifer HEALTH 350.1.13.10 it[place] CL[place] [phone] [facility] [address] 2020-02-07 2020-02-07 Telephone [facility] 1.2.840.114 [id number] Univers 00:00:00 00:00:00 Mally C CHURN TENDER 350.1.13.10 ity of REGIONAL 4.2.7.2.686 [place] as MATERNAL [phone] Med ical & CHILD [address] [place] [address] 2020-02-04 2020-02-04 Routine [facility] [id number] Univers 10:45:23 11:51:13 Mally C CHURN TENDER 350.1.13.10 ity of Visit REGIONAL 4.2.7.2.686 [place] as MATERNAL [phone] Med ical & CHILD [address] [place] [address] 2020-02-04 2020-02-04 Outpatient R [facility], [facility] [id number] Univers 11:00:00 11:00:00 MALLY [id number] ity o f [facility] 2020-02-04 2020-02-04 [facility] [id number] Univers 11:00:00 11:00:00 MALLY ordonezy o f [facility] 2020-02-04 2020-02-04 Orders Doctor HOFF 1..840.114 [id number] Univers 00:00:00 00:00:00 Only Unassigned, DILIP 350.1.13.10 ity of [place] [facility] 4.2.7.2.686 [place] as [phone] [facility] [address] 2020-01-24 2020-01-24 [facility] 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 Ultrasound, [facility] 1.2 .840.114 [id number] Univers 11:32:42 12:02:42 Visit Last Lemus CHURN TENDER 350.1.13.10 ity of REGIONAL 4.2.7.2.686 [place] as MATERNAL [phone] [facility] ical & CHILD [address] [facility] 2020-01-21 2020-01-21 Outpatient R [facility] [id number] -[id number] Univers 11:30:00 11:30:00 ity [facility] 2020-01-21 2020-01-21 Outpatient P [facility] [id number] Univers 11:30:00 11:30:00 ity [facility] 2020-01-20 2020-01-20 Outpatient R [facility] [id number] -[id number] Univers 09:30:00 09:30:[address] [facility] 2020-01-20 2020-01-20 Outpatient R MARIANN BARTLETT [facility] [id number] Univers 09:30:00 09:30:[address] [facility] 2020-01-20 2020-01-20 Routine Faculty, [facility] 1.2 .840.114 [id number] Univers 08:11:20 08:41:20 Mariann Bartlett CHURN TENDER 350.1.13.10 ity of Visit REGIONAL 4.2.7.2.686 [place] as MATERNAL [phone] [facility] & CHILD [address] [place] [address] 2020-01-02 2020-01-02 [facility] 1.2.054.168 [id number] Univers 09:46:25 10:35:48 Mally Schilling CHURN TENDER 350.1.13.10 ity of Visit REGIONAL 4.2.7.2.686 [place] as MATERNAL [phone] [facility] & CHILD [address] [place] [address] 2020-01-02 2020-01-02 Outpatient R CARL [facility] [id number] Univers 10:00:00 10:00:00 MALLY ity o f [facility] 2020-01-02 2020-01-02 Outpatient R RENEE [facility] [id number] -[id number] Univers 09:45:00 09:45:00 YEHUDA [id number] ity o f [facility] 2020-01-02 2020-01-02 Orders Doctor KAVYA 1.2.840.114 [id number] Univers 00:00:00 00:00:00 Only Unassigned, DILIP 350.1.13.10 ity of [place] [facility] 4.2.7.2.686 [place] as [phone] [address] 2020-01-01 2020-01-01 Outpatient R [facility] [id number] -20 Univers 08:00:00 08:00:00 [id number] ity of [facility] 2019-02-05 2019-02-05 Outpatient R CARL, [facility] [id number] Univers 13:30:00 13:38:17 MALLY ity o f [facility] Results Test Description Test Time Test Comments Results Result Comments Source CBC with Differential 2020-08-15 09:58:00 Test Item Value Reference Range Interpretation Comme nts WBC (test code = 6690-2) See_Comment H [A utomated message] The system which ge nerated this result transmit daniel reference range: 4.30 - 1 1.10 10*3/?L. The reference r carlene was not used to interpr et this result as normal/abnor mal. RBC (test code = 789-8) See_Comment [Au tomated message] The system which [employer] nerated this result transmit daniel reference range: 3.93 - 5 .25 10*6/?L. The reference r carlene was not used to interpr et this result as normal/abnor mal. HGB (test code = 718-7) 10.4 g/dL 11.6-15 L HCT (test code = 4544-3) 32.9 % 35.7-45.2 L MCV (test code = 787-2) 82.7 fL 80.6-95.5 MCH (test code = 785-6) 26.1 pg 25.9-32.8 MCHC (test code = 786-4) 31.6 g/dL 31.6-35.1 RDW-SD (test code = 06006-4) 42.4 fL 39-49.9 RDW-CV (test code = 788-0) 14.8 % 12-15.5 PLT (test code = 777-3) See_Comment [Au tomated message] The system which ge nerated this result transmit daniel reference range: 166 - 35 8 10*3/?L. The reference range was not used to interpret th is result as normal/abnormal . MPV (test code = 07379-0) 11.0 fL 9.5-12.9 NRBC/100 WBC (test code = See_Comment [ Automated message] The 1540646704) system which ge nerated this result transmit daniel reference range: 0.0 - 10 .0 /100 WBCs. The reference r carlene was not used to interpr et this result as normal/abnor mal. NRBC x10^3 (test code = <0.01 See_Comment [Au tomated message] The 4502582581) system which ge nerated this result transmit daniel reference range: 10*3/?L. The reference range was not u sed to interpret this result as normal/abnormal . GRAN MAT (NEUT) % (test code 76.2 % = 770-8) IMM GRAN % (test code = 1.30 % [id number]) LYMPH % (test code = 736-9) 13.2 % MONO % (test code = 5905-5) 8.2 % EOS % (test code = 713-8) 0.8 % BASO % (test code = 706-2) 0.3 % GRAN MAT x10^3(ANC) (test 13.18 10*3/uL 1.88-7.09 H code = 2144603727) IMM GRAN x10^3 (test code = 0.23 10*3/uL 0-0.06 H 3985793327) LYMPH x10^3 (test code = 2.28 10*3/uL 1.32-3.29 731-0) MONO x10^3 (test code = 1.42 10*3/uL 0.33-0.92 H 742-7) EOS x10^3 (test code = 0.13 10*3/uL 0.03-0.39 711-2) BASO x10^3 (test code = 0.05 10*3/uL 0.01-0.07 704-7) Lab Interpretation (test Abnormal code = 84016-5) [facility] - [id number] 08:55:00 Test Item Value Reference Range Interpretation Comments RPR (Qualitative) (test code = Nonreactive Nonreactive 60317-7) Lab Interpretation (test code = Normal 55878-4) [facility]D) IMMUNE [id number] 06:27:46 Test Item Value Reference Range Interpretation Comments RHIG CANDIDATE? No- see comment Patient i s not a (test code = candidate for R hIg- 5055) Patient is Rh Positive.Perfor med at [facility] Laboratory Services - [facility] Blood [address] [place] [phone] Free: [phone] A No. [id number] [facility] CORD [id number] 01:12:00 Test Item Value Reference Range Interpretation Comments BASE EXCESS, CORD mEq/L (test code = 4256649706) AC PH, CORD (BEAKER) 7.18-7.38 (test code = 8328237286) PC02, CORD (test code See_Comment [Auto mated message] The = 0030751642) system which g enerated this result transmit daniel reference range : 32 - 66 mmHg. The refer ence range was not used to interpret this result as normal/abnormal . PO2, CORD (test code See_Comment [Autom ated message] The = 9379367300) system which g enerated this result transmit daniel reference range : 10 - 30 mmHg. The refer ence range was not used to interpret this result as normal/abnormal . BICARBONATE, CORD See_Comment [Automate d message] The (test code = system which ge nerated this 5855864877) result transmit daniel reference range : 17 - 27 mEq/L. The refe rence range was not used to interpret this result as normal/abnormal . [facility] CORD [id number] 01:08:00 Test Item Value Reference Range Interpretation Comments VENOUS BASE EXCESS, mEq/L CORD (test code = 9700135409) VENOUS PH, CORD (test 7.25-7.45 code = 7537495399) VENOUS PC02, CORD See_Comment [Automate d message] The (test code = system which ge nerated 2795068307) this result tra nsmitted reference range : 27 - 49 mmHg. The refer ence range was not used to interpret this result as normal/abnormal . VENOUS PO2, CORD (test See_Comment [Aut omated message] The code = 7481218270) system wh ich generated this result tra nsmitted reference range : 17 - 41 mmHg. The refer ence range was not used to interpret this result as normal/abnormal . VENOUS BICARBONATE, See_Comment QUES [Au tomated message] CORD (test code = The system which generated 5879007560) this result tra nsmitted reference range : 12 - 29 mEq/L. The refe rence range was not used to interpret this result as normal/abnormal . [facility] Hospital[facility]atitis B Surface [id number] 16:14:00 Test Item Value Reference Range Interpretation Comments HBsAg Semi-Quantitative (test code = Negative Negative 5195-3) [facility] Screen - ONCE [id number] 12:25:45 Test Item Value Reference Range Interpretation Comments ABO & RH (test code O Positive Performe d at [facility] = 20) Laboratory Serv [facility] Blood Bank1 [address] [place], [place] [address]Toll Free: [phone] A No. [id number] IAT (test code = Negative Performed a t [facility] 1185) Laboratory [facility] Blood Bank1 [address] [place], [place] [address]Toll Free: [phone] A No. [id number] [facility] HospitalHIV 1/2 AG-AB WITH [id number] 12:19:00 Test Item Value Reference Range Interpretation Comments HIV Negative Negative Semi-quantitative (test code = 33494-7) COLLEEN (test code = Non-reactive for HIV-1 COLLEEN) antigen and HIV-1/HIV-2 antibodies. ?No laboratory evidence of HIV infection. ?Repeat in 2-4 weeks if acute HIV infection is suspected. [facility] HospitalCBC with [id number] 11:28:00 Test Item Value Reference Range Interpretation Comments WBC (test code = See_Comment H [Automated 6690-2) message] The system which generated this result transmit daniel reference range : 4.30 - 11.10 10*3/?L. The reference range was not used to interpret this result as normal/abnormal . RBC (test code = See_Comment L [Automated 789-8) message] The system which generated this result transmit daniel reference range : 3.93 - 5.25 10*6/?L. The reference range was not used to interpret this result as normal/abnormal . HGB (test code = 9.8 g/dL 11.6-15 L 718-7) HCT (test code = 31.7 % 35.7-45.2 L 4544-3) MCV (test code = 82.3 fL 80.6-95.5 787-2) MCH (test code = 25.5 pg 25.9-32.8 L 785-6) MCHC (test code = 30.9 g/dL 31.6-35.1 L 786-4) RDW-SD (test code = 41.6 fL 39-49.9 05269-7) RDW-CV (test code = 14.6 % 12-15.5 788-0) PLT (test code = See_Comment [Automated 777-3) message] The system which generated this result transmit daniel reference range : 166 - 358 10*3/ ?L. The reference range was not u sed to interpret th is result as normal/abnormal . MPV (test code = 10.6 fL 9.5-12.9 01837-3) NRBC/100 WBC (test See_Comment [Automat ed code = 9045725329) message] The system which generated this result transmit daniel reference range : 0.0 - 10.0 /100 WBCs. The reference range was not used to interpret this result as normal/abnormal . NRBC x10^3 (test code <0.01 See_Comment [Auto mated = 0951945169) message] The system which generated this result transmit daniel reference range : 10*3/?L. The reference range was not used to interpret this result as normal/abnormal . GRAN MAT (NEUT) % 73.3 % (test code = 770-8) IMM GRAN % (test code 2.20 % = 7903257875) LYMPH % (test code = 15.2 % 736-9) MONO % (test code = 7.6 % 5905-5) EOS % (test code = 1.2 % 713-8) BASO % (test code = 0.5 % 706-2) GRAN MAT x10^3(ANC) 12.36 10*3/uL 1.88-7.09 H (test code = 3302127085) IMM GRAN x10^3 (test 0.37 10*3/uL 0-0.06 H code = 2789743751) LYMPH x10^3 (test code 2.57 10*3/uL 1.32-3.29 = 731-0) MONO x10^3 (test code 1.28 10*3/uL 0.33-0.92 H = 742-7) EOS x10^3 (test code = 0.20 10*3/uL 0.03-0.39 711-2) BASO x10^3 (test code 0.08 10*3/uL 0.01-0.07 H = 704-7) Lab Interpretation Abnormal (test code = 11088-6) [facility] (ID NOW RAPID TESTING)2020-08-14 09:59:00 Test Item Value Reference Range Interpretation Comments SARS-CoV-2 Rapid ID NOW Not Detected Not Detected (test code = 57983-5) COLLEEN (test code = COLLEEN) ID NOW COVID-19 Assay is an isothermal nucleic acid amplification test intended for the qualitative detection of nucleic acid from SARS-CoV-2 viral RNA in nasopharyngeal (MAGNETIC PROSPECTING OPERATOR) specimens. It is used under Emergency Use Authorization (EUA) by FDA. The limit of detection (LOD) of the assay is 125 Genome Equivalents/mL. A positive result is indicative of the presence of SARS-CoV-2 RNA. ?Clinical correlation with patient history and other diagnostic [...] for repeat patient testing if clinically indicated. Lab Interpretation Normal (test code = 74168-0) [facility] ONLY - FERN [id number] 09:34:00 Test Item Value Reference Range Interpretation Comments Fern Test (test code = 0831307758) Positive [facility] HospitalFETAL NON-STRESS [id number] 19:55:33NST: cat 1, reactive/reassuring, no ctx, +accels, neg decls, moderate variability [facility] URINALYSIS W SPECIFIC [id number] 19:06:00 Test Item Value Reference Range Interpretation Comments POCT U SP GRAV (test code = 3255) . 1.005-1.025 POCT PH U (test code = 3254) . 5-8 POCT U LEUK EST (test code = 3263) . Negative - Negative POCT U NIT (test code = 3262) . Negative - Negative POCT U PROT (test code = 3259) Trace Negative - Negative POCT U GLU (test code = 3256) Neg Negative - Negative POCT U KETONE (test code = 3258) . Negative - Negative POCT U UROBILI (test code = 3260) . 0.2-1 POCT U BILI (test code = 3261) . Negative - Negative POCT U BLD (test code = 3257) . Negative - Negative POCT U COLOR (test code = 3266) POCT U APPEAR (test code = 3267) [facility] URINALYSIS W SPECIFIC [id number] 18:05:00 Test Item Value Reference Range Interpretation Comments POCT U SP GRAV (test code = 3255) . 1.005-1.025 POCT PH U (test code = 3254) . 5-8 POCT U LEUK EST (test code = 3263) . Negative - Negative POCT U NIT (test code = 3262) . Negative - Negative POCT U PROT (test code = 3259) TRACE Negative - Negative POCT U GLU (test code = 3256) NEG Negative - Negative POCT U KETONE (test code = 3258) . Negative - Negative POCT U UROBILI (test code = 3260) . 0.2-1 POCT U BILI (test code = 3261) . Negative - Negative POCT U BLD (test code = 3257) . Negative - Negative POCT U COLOR (test code = 3266) POCT U APPEAR (test code = 3267) [facility] URINALYSIS W SPECIFIC [id number] 14:33:00 Test Item Value Reference Range Interpretation Comments POCT U SP GRAV (test code = 3255) . 1.005-1.025 POCT PH U (test code = 3254) . 5-8 POCT U LEUK EST (test code = 3263) . Negative - Negative POCT U NIT (test code = 3262) . Negative - Negative POCT U PROT (test code = 3259) Trace Negative - Negative POCT U GLU (test code = 3256) Neg Negative - Negative POCT U KETONE (test code = 3258) . Negative - Negative POCT U UROBILI (test code = 3260) . 0.2-1 POCT U BILI (test code = 3261) . Negative - Negative POCT U BLD (test code = 3257) . Negative - Negative POCT U COLOR (test code = 3266) POCT U APPEAR (test code = 3267) [facility] URINALYSIS W SPECIFIC [id number] 16:11:00 Test Item Value Reference Range Interpretation Comments POCT U SP GRAV (test code = 3255) . 1.005-1.025 POCT PH U (test code = 3254) . 5-8 POCT U LEUK EST (test code = 3263) . Negative - Negative POCT U NIT (test code = 3262) . Negative - Negative POCT U PROT (test code = 3259) trace Negative - Negative POCT U GLU (test code = 3256) normal Negative - Negative POCT U KETONE (test code = 3258) . Negative - Negative POCT U UROBILI (test code = 3260) . 0.2-1 POCT U BILI (test code = 3261) . Negative - Negative POCT U BLD (test code = 3257) . Negative - Negative POCT U COLOR (test code = 3266) POCT U APPEAR (test code = 3267) [facility] URINALYSIS W SPECIFIC [id number] 16:11:00 Test Item Value Reference Range Interpretation Comments POCT U SP GRAV (test code = 3255) . 1.005-1.025 POCT PH U (test code = 3254) . 5-8 POCT U LEUK EST (test code = 3263) . Negative - Negative POCT U NIT (test code = 3262) . Negative - Negative POCT U PROT (test code = 3259) trace Negative - Negative POCT U GLU (test code = 3256) normal Negative - Negative POCT U KETONE (test code = 3258) . Negative - Negative POCT U UROBILI (test code = 3260) . 0.2-1 POCT U BILI (test code = 3261) . Negative - Negative POCT U BLD (test code = 3257) . Negative - Negative POCT U COLOR (test code = 3266) POCT U APPEAR (test code = 3267) [facility] URINALYSIS W SPECIFIC [id number] 16:11:00 Test Item Value Reference Range Interpretation Comments POCT U SP GRAV (test code = 3255) . 1.005-1.025 POCT PH U (test code = 3254) . 5-8 POCT U LEUK EST (test code = 3263) . Negative - Negative POCT U NIT (test code = 3262) . Negative - Negative POCT U PROT (test code = 3259) trace Negative - Negative POCT U GLU (test code = 3256) normal Negative - Negative POCT U KETONE (test code = 3258) . Negative - Negative POCT U UROBILI (test code = 3260) . 0.2-1 POCT U BILI (test code = 3261) . Negative - Negative POCT U BLD (test code = 3257) . Negative - Negative POCT U COLOR (test code = 3266) POCT U APPEAR (test code = 3267) [facility] URINALYSIS W SPECIFIC [id number] 16:11:00 Test Item Value Reference Range Interpretation Comments POCT U SP GRAV (test code = 3255) . 1.005-1.025 POCT PH U (test code = 3254) . 5-8 POCT U LEUK EST (test code = 3263) . Negative - Negative POCT U NIT (test code = 3262) . Negative - Negative POCT U PROT (test code = 3259) trace Negative - Negative POCT U GLU (test code = 3256) normal Negative - Negative POCT U KETONE (test code = 3258) . Negative - Negative POCT U UROBILI (test code = 3260) . 0.2-1 POCT U BILI (test code = 3261) . Negative - Negative POCT U BLD (test code = 3257) . Negative - Negative POCT U COLOR (test code = 3266) POCT U APPEAR (test code = 3267) [facility] URINALYSIS W SPECIFIC [id number] 14:01:00 Test Item Value Reference Range Interpretation Comments POCT U SP GRAV (test code = 3255) . 1.005-1.025 POCT PH U (test code = 3254) . 5-8 POCT U LEUK EST (test code = 3263) . Negative - Negative POCT U NIT (test code = 3262) . Negative - Negative POCT U PROT (test code = 3259) Trace Negative - Negative POCT U GLU (test code = 3256) Neg Negative - Negative POCT U KETONE (test code = 3258) . Negative - Negative POCT U UROBILI (test code = 3260) . 0.2-1 POCT U BILI (test code = 3261) . Negative - Negative POCT U BLD (test code = 3257) . Negative - Negative POCT U COLOR (test code = 3266) POCT U APPEAR (test code = 3267) [facility] URINALYSIS W SPECIFIC [id number] 15:33:00 Test Item Value Reference Range Interpretation Comments POCT U SP GRAV (test code = 3255) . 1.005-1.025 POCT PH U (test code = 3254) . 5-8 POCT U LEUK EST (test code = 3263) . Negative - Negative POCT U NIT (test code = 3262) . Negative - Negative POCT U PROT (test code = 3259) Trace Negative - Negative POCT U GLU (test code = 3256) Neg Negative - Negative POCT U KETONE (test code = 3258) . Negative - Negative POCT U UROBILI (test code = 3260) . 0.2-1 POCT U BILI (test code = 3261) . Negative - Negative POCT U BLD (test code = 3257) . Negative - Negative POCT U COLOR (test code = 3266) POCT U APPEAR (test code = 3267) [facility] URINALYSIS W SPECIFIC [id number] 15:33:00 Test Item Value Reference Range Interpretation Comments POCT U SP GRAV (test code = 3255) . 1.005-1.025 POCT PH U (test code = 3254) . 5-8 POCT U LEUK EST (test code = 3263) . Negative - Negative POCT U NIT (test code = 3262) . Negative - Negative POCT U PROT (test code = 3259) Trace Negative - Negative POCT U GLU (test code = 3256) Neg Negative - Negative POCT U KETONE (test code = 3258) . Negative - Negative POCT U UROBILI (test code = 3260) . 0.2-1 POCT U BILI (test code = 3261) . Negative - Negative POCT U BLD (test code = 3257) . Negative - Negative POCT U COLOR (test code = 3266) POCT U APPEAR (test code = 3267) [facility] URINALYSIS W SPECIFIC [id number] 15:33:00 Test Item Value Reference Range Interpretation Comments POCT U SP GRAV (test code = 3255) . 1.005-1.025 POCT PH U (test code = 3254) . 5-8 POCT U LEUK EST (test code = 3263) . Negative - Negative POCT U NIT (test code = 3262) . Negative - Negative POCT U PROT (test code = 3259) Trace Negative - Negative POCT U GLU (test code = 3256) Neg Negative - Negative POCT U KETONE (test code = 3258) . Negative - Negative POCT U UROBILI (test code = 3260) . 0.2-1 POCT U BILI (test code = 3261) . Negative - Negative POCT U BLD (test code = 3257) . Negative - Negative POCT U COLOR (test code = 3266) POCT U APPEAR (test code = 3267) [facility] URINALYSIS W SPECIFIC [id number] 16:24:00 Test Item Value Reference Range Interpretation Comments POCT U SP GRAV (test code = 3255) . 1.005-1.025 POCT PH U (test code = 3254) . 5-8 POCT U LEUK EST (test code = 3263) . Negative - Negative POCT U NIT (test code = 3262) . Negative - Negative POCT U PROT (test code = 3259) Trace Negative - Negative POCT U GLU (test code = 3256) Neg Negative - Negative POCT U KETONE (test code = 3258) . Negative - Negative POCT U UROBILI (test code = 3260) . 0.2-1 POCT U BILI (test code = 3261) . Negative - Negative POCT U BLD (test code = 3257) . Negative - Negative POCT U COLOR (test code = 3266) POCT U APPEAR (test code = 3267) [facility] URINALYSIS W SPECIFIC [id number] 15:54:00 Test Item Value Reference Range Interpretation Comments POCT U SP GRAV (test code = 3255) . 1.005-1.025 POCT PH U (test code = 3254) . 5-8 POCT U LEUK EST (test code = 3263) . Negative - Negative POCT U NIT (test code = 3262) . Negative - Negative POCT U PROT (test code = 3259) Trace Negative - Negative POCT U GLU (test code = 3256) Neg Negative - Negative POCT U KETONE (test code = 3258) . Negative - Negative POCT U UROBILI (test code = 3260) . 0.2-1 POCT U BILI (test code = 3261) . Negative - Negative POCT U BLD (test code = 3257) . Negative - Negative POCT U COLOR (test code = 3266) POCT U APPEAR (test code = 3267) [facility] URINALYSIS W SPECIFIC [id number] 15:54:00 Test Item Value Reference Range Interpretation Comments POCT U SP GRAV (test code = 3255) . 1.005-1.025 POCT PH U (test code = 3254) . 5-8 POCT U LEUK EST (test code = 3263) . Negative - Negative POCT U NIT (test code = 3262) . Negative - Negative POCT U PROT (test code = 3259) Trace Negative - Negative POCT U GLU (test code = 3256) Neg Negative - Negative POCT U KETONE (test code = 3258) . Negative - Negative POCT U UROBILI (test code = 3260) . 0.2-1 POCT U BILI (test code = 3261) . Negative - Negative POCT U BLD (test code = 3257) . Negative - Negative POCT U COLOR (test code = 3266) POCT U APPEAR (test code = 3267) [facility] URINALYSIS W SPECIFIC [id number] 15:54:00 Test Item Value Reference Range Interpretation Comments POCT U SP GRAV (test code = 3255) . 1.005-1.025 POCT PH U (test code = 3254) . 5-8 POCT U LEUK EST (test code = 3263) . Negative - Negative POCT U NIT (test code = 3262) . Negative - Negative POCT U PROT (test code = 3259) Trace Negative - Negative POCT U GLU (test code = 3256) Neg Negative - Negative POCT U KETONE (test code = 3258) . Negative - Negative POCT U UROBILI (test code = 3260) . 0.2-1 POCT U BILI (test code = 3261) . Negative - Negative POCT U BLD (test code = 3257) . Negative - Negative POCT U COLOR (test code = 3266) POCT U APPEAR (test code = 3267) [facility] URINALYSIS W SPECIFIC [id number] 15:20:00 Test Item Value Reference Range Interpretation Comments POCT U SP GRAV (test code = . 1.005-1.025 3255) POCT PH U (test code = 3254) . 5-8 POCT U LEUK EST (test code = . Negative - Negative 3263) POCT U NIT (test code = 3262) . Negative - Negative POCT U PROT (test code = 3259) trace Negative - Negative POCT U GLU (test code = 3256) negative Negative - Negative POCT U KETONE (test code = 3258) . Negative - Negative POCT U UROBILI (test code = . 0.2-1 3260) POCT U BILI (test code = 3261) . Negative - Negative POCT U BLD (test code = 3257) . Negative - Negative POCT U COLOR (test code = 3266) POCT U APPEAR (test code = 3267) [facility] URINALYSIS W SPECIFIC [id number] 19:05:00 Test Item Value Reference Range Interpretation Comments POCT U SP GRAV (test code = 3255) . 1.005-1.025 POCT PH U (test code = 3254) . 5-8 POCT U LEUK EST (test code = 3263) . Negative - Negative POCT U NIT (test code = 3262) . Negative - Negative POCT U PROT (test code = 3259) Trace Negative - Negative POCT U GLU (test code = 3256) Neg. Negative - Negative POCT U KETONE (test code = 3258) . Negative - Negative POCT U UROBILI (test code = 3260) . 0.2-1 POCT U BILI (test code = 3261) . Negative - Negative POCT U BLD (test code = 3257) . Negative - Negative POCT U COLOR (test code = 3266) POCT U APPEAR (test code = 3267) [facility] URINALYSIS W SPECIFIC [id number] 19:05:00 Test Item Value Reference Range Interpretation Comments POCT U SP GRAV (test code = 3255) . 1.005-1.025 POCT PH U (test code = 3254) . 5-8 POCT U LEUK EST (test code = 3263) . Negative - Negative POCT U NIT (test code = 3262) . Negative - Negative POCT U PROT (test code = 3259) Trace Negative - Negative POCT U GLU (test code = 3256) Neg. Negative - Negative POCT U KETONE (test code = 3258) . Negative - Negative POCT U UROBILI (test code = 3260) . 0.2-1 POCT U BILI (test code = 3261) . Negative - Negative POCT U BLD (test code = 3257) . Negative - Negative POCT U COLOR (test code = 3266) POCT U APPEAR (test code = 3267) [facility] [id number] 14:49:00 Test Item Value Reference Range Interpretation Comments POCT PREG (test code = 1605) Positive On board controls acceptable with C Yes Line (test code = 3579) POCT PREG LOT # (test code = 4376) POCT [facility]REG TEST DATE (test code = 3576) [facility] [id number] 14:49:00 Test Item Value Reference Range Interpretation Comments POCT PH U (test code = 3254) 6 mg/dl 5-8 POCT U LEUK EST (test code = 1+ Negative - Negative 3263) POCT U NIT (test code = 3262) Neg Negative - Negative POCT U PROT (test code = 3259) 1+ Negative - Negative POCT U GLU (test code = 3256) Neg Negative - Negative POCT U KETONE (test code = 3258) None Negative - Negative POCT U BLD (test code = 3257) Neg Negative - Negative [facility]
--- NOTE | 2022-03-28 22:26 | ER ---
Nurse's Notes [facility] Name: Maricel Nur Age: 26 yrs Sex: Female : 1995 Arrival Date: 03/28/2022 Time: 18:33 Bed 12 Private MD: Diagnosis: Acute bronchitis, unspecified Presentation: 03/28 19:49 Chief complaint: Patient states: she has COVID symptoms, cough, congestion, sore bb throat, headache for several days. Coronavirus screen: congestion, cough unrelated to allergies, runny nose. Ebola Screen: No symptoms or risks identified at this time. Resp Distress? No respiratory distress is noted at this time. Initial Sepsis Screen: Does the patient meet any 2 criteria? No. Patient's initial sepsis screen is negative. Does the patient have a suspected source of infection? No. Patient's initial sepsis screen is negative. Risk Assessment: Do you want to hurt yourself or someone else? Patient reports no desire to harm self or others. Onset of symptoms was March 26, 2022. 19:49 Method Of Arrival: Ambulatory 19:49 Acuity: ALEXANDER 3 bb Triage Assessment: 19:51 General: Appears in no apparent distress. uncomfortable, Behavior is calm, cooperative. bb Pain: Complains of pain in left ear and sore throat. Neuro: Level of Consciousness is awake, alert, obeys commands, Oriented to person, place, time, situation. Cardiovascular: Capillary refill < 3 seconds Patient's skin is warm and dry. Respiratory: Respiratory effort is even, unlabored, Respiratory pattern is regular, Breath sounds are clear bilaterally. GI: No signs and/or symptoms were reported involving the gastrointestinal system. Derm: Skin is pink, warm \\T\\ dry. Musculoskeletal: Circulation, motion, and sensation intact. PSYCHOLOGY TECH: 19:51 LMP 03/16/2022 bb Historical: - Allergies: 19:51 cefprozil; bb 19:51 Cefzil; bb - Home Meds: 19:51 None [Active]; bb - PMHx: 19:51 Anxiety; Colitis; Ovarian cyst; Efrain Wai Syndrome; stickler syndrome; bb - Immunization history:: Moderna x 2. - Social history:: Smoking status: Patient denies any tobacco usage or history of. Screenin:00 Abuse screen: Denies threats or abuse. Nutritional screening: No deficits noted. vc1 Tuberculosis screening: No symptoms or risk factors identified. Fall Risk None identified. Assessment: 21:00 Reassessment: See triage assessment. vc1 22:00 Reassessment: Patient and/or family updated on plan of care and expected duration. Pain vc1 level reassessed. Patient is alert, oriented x 3, equal unlabored respirations, skin warm/dry/pink. Vital Signs: 19:49 BP 119 / 91; Pulse 86; Resp 16 S; Temp 97.7(TE); Pulse Ox 100% on R/A; Weight 65.77 kg bb (R); Height 5 ft. 5 in. (165.10 cm) (R); Pain 6/10; 19:49 Body Mass Index 24.13 (65.77 kg, 165.10 cm) bb ED Course: 18:33 Patient arrived in ED. mr 19:51 Triage completed. bb 19:51 Arm band placed on Patient placed in waiting room, Patient notified of wait time. bb 19:53 Nael Gaines PA is PHCP. cp 19:53 Nael Moore MD is Attending Physician. cp 20:51 COVID swab sent to lab. Flu and/or RSV swab sent to lab. Strep swab sent to lab. wm 20:52 Influenza Screen (a \\T\\ B) Sent. 20:52 Strep Sent. 20:52 COVID-19 SARS RT PCR (Document "Date of Onset" if Symptomatic) Sent. 22:30 Patient has correct armband on for positive identification. Bed in low position. vc1 22:35 No provider procedures requiring assistance completed. Patient did not have IV access vc1 during this emergency room visit. Administered Medications: No medications were administered Medication: 22:30 VIS not applicable for this client. vc1 Outcome: 22:26 Discharge ordered by . cp 22:30 Discharged to home ambulatory. vc1 22:30 Condition: good 22:30 Discharge instructions given to patient, Instructed on discharge instructions, follow up and referral plans. medication usage, Demonstrated understanding of instructions, follow-up care, medications, Prescriptions given X 2. 22:39 Patient left the ED. bb Signatures: Oumou Riggs mr Hafsa Frias RN RN bb Nael Gaines PA PA cp Marsh, Wendy Calcote, Giovanna, RN RN vc1
--- NOTE | 2022-03-28 22:26 | EDPHYS ---
Physician Documentation [facility] Name: Maricel Nur Age: 26 yrs Sex: Female : 1995 Arrival Date: 03/28/2022 Time: 18:33 Bed 12 Private MD: ED Physician Nael Moore HPI: 03/28 20:00 This 26 yrs old Female presents to ER via Ambulatory with complaints of Cough, cp Congestion, Ear Pain. 20:00 The patient or guardian reports cough, that is intermittent, with productive sputum, cp that is purulent. 20:00 Onset: The symptoms/episode began/occurred 3 day(s) ago. cp 20:00 Severity of symptoms: in the emergency department the symptoms are unchanged, despite cp home interventions. Associated signs and symptoms: Pertinent positives: earache, sore throat, Pertinent negatives: diarrhea, fever, vomiting. 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 - Social history:: Smoking status: Patient denies any tobacco usage or history of. ROS: 20:05 Constitutional: Positive for body aches, Negative for fever, poor PO intake. cp 20:05 Eyes: Negative for injury, pain, redness, and discharge. cp 20:05 ENT: Positive for ear pain, sore throat, Negative for drainage from ear(s), difficulty swallowing, difficulty handling secretions. 20:05 Cardiovascular: Negative for chest pain. 20:05 Respiratory: Positive for cough, Negative for wheezing. 20:05 Abdomen/GI: Negative for abdominal pain, vomiting, diarrhea, constipation. 20:05 Neuro: Positive for headache, Negative for altered mental status, weakness. 20:05 All other systems are negative. Exam: 20:10 Constitutional: The patient appears in no acute distress, alert, awake, non-toxic, well cp developed, well nourished. 20:10 Head/Face: Normocephalic, atraumatic. cp 20:10 Eyes: Periorbital structures: appear normal, Conjunctiva: normal, no exudate, no injection, Sclera: no appreciated abnormality, Lids and lashes: appear normal, bilaterally. 20:10 ENT: External ear(s): are unremarkable, Ear canal(s): cerumen impaction, that is moderate, occluding the left ear canal, TM's: dullness, on the right, erythema, is not appreciated, on the right, Nose: is normal, Mouth: Lips: moist, Oral mucosa: moist, Posterior pharynx: Airway: no evidence of obstruction, patent, Tonsils: with erythema, no enlargement, no exudate, erythema, that is mild, exudate, is not appreciated, Voice: is normal. 20:10 Neck: ROM/movement: is normal, is supple, without pain, no range of motions limitations, no meningismus, Lymph nodes: no appreciated lymphadenopathy. 20:10 Chest/axilla: Inspection: normal, Palpation: is normal, no crepitus, no tenderness. 20:10 Cardiovascular: Rate: normal, Rhythm: regular. 20:10 Respiratory: the patient does not display signs of respiratory distress, Respirations: normal, no use of accessory muscles, no retractions, labored breathing, is not present, Breath sounds: decreased breath sounds, are not appreciated, + upper airway congestion. wheezing: is not appreciated. 20:10 Abdomen/GI: Inspection: abdomen appears normal, Palpation: abdomen is soft and non-tender, in all quadrants. Vital Signs: 19:49 BP 119 / 91; Pulse 86; Resp 16 S; Temp 97.7(TE); Pulse Ox 100% on R/A; Weight 65.77 kg bb (R); Height 5 ft. 5 in. (165.10 cm) (R); Pain 6/10; 19:49 Body Mass Index 24.13 (65.77 kg, 165.10 cm) bb MDM: 20:40 Patient medically screened. cp 22:25 Data reviewed: vital signs, nurses notes, lab test result(s). cp 22:25 Differential Diagnosis: Bronchitis Influenza Sinusitis Otitis Media Pneumonia. cp Counseling: I had a detailed discussion with the patient and/or guardian regarding: the historical points, exam findings, and any diagnostic results supporting the discharge/admit diagnosis, lab results, to return to the emergency department if symptoms worsen or persist or if there are any questions or concerns that arise at home. 03/28 19:54 Order name: COVID-19 SARS RT PCR (Document "Date of Onset" if Symptomatic); Complete cp Time: :03/28 19:54 Order name: Strep; Complete Time: : cp 03/28 19:54 Order name: Influenza Screen (a \\T\\ B); Complete Time: 22:22 cp 03/28 21:21 Order name: Throat Culture EDMS Administered Medications: No medications were administered Disposition Summary: 03/28/22 22:26 Discharge Ordered Location: Home cp Problem: new cp Symptoms: have improved cp Condition: Stable cp Diagnosis - Acute bronchitis, unspecified cp Followup: cp - With: Private Physician - When: 2 - 3 days - Reason: Worsening of condition Discharge Instructions: - Discharge Summary Sheet cp - Acute Bronchitis, Adult cp Forms: - Medication Reconciliation Form cp - Thank You Letter cp - Antibiotic Education cp - Prescription Opioid Use cp Prescriptions: - Bromfed DM 2-30-10 mg/5 mL Oral syrup - take 10 milliliter by ORAL route every 6 hours; 180 milliliter; Refills: 0, cp Product Selection Permitted - Zithromax Z-Cameron 250 mg Oral Tablet - take 1 tablet by ORAL route as directed for 5 days Day 1 - take two (2) tablets cp one time. Day 2, 3, 4 , 5 take one (1) tablet once daily.; 6 tablet; Refills: 0, Product Selection Permitted Signatures: Dispatcher [employer] Hafsa Medina RN RN Nael Luevano PA PA cp
[2022-03-28 23:03] VITALS: BP 119/91; TEMP 97.7; O2SAT 100
== END 2022-03-28 22:39 | disposition home or self-care (01) ==
LOC: ER 18:31
DX: J20.9 Acute bronchitis, unspecified (principal); Z88.8 Allergy status to other drugs, medicaments and biological substances; F41.9 Anxiety disorder, unspecified; Q87.0 Congenital malformation syndromes predominantly affecting facial appearance; Q89.8 Other specified congenital malformations; Z20.822 Contact with and (suspected) exposure to COVID-19
CPT/HCPCS: 87070; 87081; 87804 ×2; 99283; U0003

== ENCOUNTER 2022-10-02 08:38 | Emergency (ER) | payer OTHER ==
--- OUTSIDE RECORDS SUMMARY | 2022-10-02 08:48 | XMS REPORT | Continuity of Care Document ---
:1995 Author Organization [facility] t Address [address] [place] [address] Care Team Providers Name Role Phone GIANNI DURAN Attending Clinician Unavailable Gianni Pinedo Attending Clinician Akindorothy SHANNANPMally Attending Clinician [phone] Edel Carballo MD Attending Clinician Verito Davis MD, Vonnie Attending Clinician [phone] MALLY HENRY Attending Clinician Unavailable Doctor Unassigned, [place] Attending Clinician Unavailable Juan Francisco Garcia MD Attending Clinician LabFlako Attending Clinician Unavailable Ultrasound, Ashlyn Attending Clinician Unavailable Joanne Nogueira MD Attending Clinician Olivier Jaramillo MD Attending Clinician Ange Weaver MD Attending Clinician Estela Esposito Attending Clinician Unavailable Amy Bartlett MD Attending Clinician Emma Francis Attending Clinician Unavailable Last Lemus MD Attending Clinician AMY BARTLETT Attending Clinician Unavailable AMY BARTLETT Attending Clinician Unavailable Faculty, Bonilla Latif Attending Clinician Unavailable JUAN FRANCISCO GARCIA Admitting Clinician Unavailable Haris PEREZ, Edel Hart Admitting Clinician Juan Francisco Garcia MD Admitting Clinician Payers Payer Name Policy Type Policy Number Effective Date Expiration Date Molina terry [facility] [id number] 2020 CHOICE MEDICAID 00:00:00 MEDICAID [facility] [id number] 2019 00:00:00 Problems Condition Condition Condition Status Onset Resolution Last Treating Co mments Source Name Details Category Date Date Treatment Clinician Date S/P tubal S/P tubal Disease Active 2019- Uni vers ligation ligation 1- ity of 00:00: [place] [id number] Medical Branch ROM ROM Disease Active 2020- Univers (rupture (rupture 0-30 ity of of of 00:00: [place] membranes) membranes) 00 [facility] , , Branch premature premature Obesity Obesity Disease Active 2019- Univers (BMI (BMI 0-30 ity of 30-39.9) 30-39.9) 00:00: [place] [address] Medical Branch Anemia of Anemia of Disease Active 2019-10 Uni vers mother in mother in 0-19 ity of , , [place] antepartum antepartum 00 [place] [facility] Heartburn Heartburn Disease Active 2020-0 Uni vers in in 9-11 [place] [facility] Disease Active 2020-0 Uni vers epistaxis epistaxis 7-14 ity of 00:00: [place] 00 Medical Branch Supervisio Supervisio Disease Active 2020-0 U nivers n of n of 5-18 ity of high-risk high-risk 00:[place] [facility] Multiparit Multiparit Disease Active 2020-0 U nivers y y 5-18 ity of 00:00: [place] [address] Medical Branch History of History of Disease Active 2020-0 U nivers miscarriag miscarriag 5-18 it y of e e 00:00: [address] Branch Depression Depression Disease Active 2020-0 U nivers during during 4-03 [place] [facility] Generalize Generalize Disease Active 2020-0 U nivers d anxiety d anxiety 4-03 ity of disorder disorder 00:00: [place] [address] Medical Branch Major Major Disease Active 2020-0 Univers depressive depressive 4-03 it y of disorder disorder 00:00: [place] 00 Medical Branch Nausea and Nausea and Disease Active 2020- U nivers vomiting vomiting 4-03 ity of during during 00:00: [place] 00 [facility] Rubella Rubella Disease Active Overview: Univ ers non-immune non-immune 3-20 Address i ty of status, status, 00:00: pp [place] antepartum antepartum 00 [facility] Supervisio Supervisio Disease Active U nivers n of n of 3-19 ity of high-risk high-risk 00:[place] [facility] Contracept Contracept Disease Active U nivers kelle kelle 4-16 ity [place] management [place] [address] [facility] Disease Active Univers (spontaneo (spontaneo 3-01 it y of us vaginal us vaginal 00:00: [place] delivery) delivery[place] 00 [facility] Single Single Disease Active Univers live live 3-01 it y of 00:00: [place] [address] 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 7- ity of 00:00: [place] 00 Medical Branch Efrain Efrain Disease Active 2018 Univers Wai's Wai's 7-09 ity of syndrome syndrome 00:00: [place] 00 Medical Branch Pain Pain Disease Active 2017- Univers pelvic pelvic 7-13 ity of 00:00: [place] 00 Medical Branch Dysmenorrh Dysmenorrh Disease Active 2016 U nivers ea ea 6-24 ity of 00:00: [place] 00 Medical Branch Allergies, Adverse Reactions, Alerts Allergy Allergy Status Severity Reaction(s) Onset Inactive Treating Comm ents Source Name Type Date Date Clinician CEFPROZI DRUG Active Hives Univers L INGREDI 2- ity of 00:00: [place] 00 Medical Branch Cefprozi Propensi Active Hives Univer s l ty to 12-12 ity of adverse 00:00: [place] reaction 00 Medical s Branch Social History Social Habit Start Date Stop Date Quantity Comments Source ASSERTION 2019-12-06 University of 00:00:00 [facility] Exposure to Not sure [facility] SARS-CoV-2 [facility] (event) [place] Sex Assigned At Universit y of [facility] Tobacco use and 2020-08-16 2020-08-16 Never used Universit y of exposure 00:00:00 00:00:00 [facility] Alcohol intake 2020-08-16 2020-08-16 Current [facility] 00:00:00 00:00:00 non-drinker of [facility] alcohol [place] (finding) History [facility] 2020-08-14 2020-08-14 11 University o f Education 00:00:00 00:00:00 [facility] History [facility] 2020-08-14 2020-08-14 4 University o f Financial 00:00:00 00:00:00 [facility] Smoking Status Start Date Stop Date Source Never smoker [facility] Medications Ordered Filled Start Stop Current Ordering Indication Dosage Frequency Signature Comments Components Source Medication Medication Date Date Medication? Clinician (SIG) Name Name 2019-10 Yes [id number] 1{tbl} Take 1 Univers vitamin 1-02 tablet by ity of w/FA tablet 00:00: mouth [place] 00 daily. Medical Branch acetaminoph 2019-10 Yes [id number] 650mg Take 2 Univers en 325 mg 1-02 tablets by ity of tablet 00:00: mouth [place] 00 every 6 Medical (six) Branch hours as needed for Pain (scale 1-3). docusate 2019-10 Yes [id number] 240mg Take 1 U nivers calcium 240 1-02 capsule by it y of mg capsule 00:00: mouth [place] 00 daily as Medical needed for Branch Constipati on. 2019-10 Yes [id number] 1{tbl} Take 1 Univers vitamin 1-02 tablet by ity of w/FA tablet 00:00: mouth [place] 00 daily. Medical Branch ibuprofen 2019-10 Yes [id number] 600mg Take 1 Univers 600 mg 1-02 tablet by ity of tablet 00:00: mouth [place] 00 every 6 Medical (six) Branch hours as needed for Pain (scale 4-6). acetaminoph 2019-10 Yes [id number] 650mg Take 2 Univers en 325 mg 1-02 tablets by ity of tablet 00:00: mouth [place] 00 every 6 Medical (six) Branch hours as needed for Pain (scale 1-3). docusate 2019-10 Yes [id number] 240mg Take 1 U nivers calcium 240 1-02 capsule by it y of mg capsule 00:00: mouth once [place] 00 daily as Medical needed for Branch Constipati on. 2019-10 Yes [id number] 1{tbl} Take 1 Univers vitamin 1-02 tablet by ity of w/FA tablet 00:00: mouth [place] 00 daily. Medical Branch ibuprofen 2019-10 Yes [id number] 600mg Take 1 Univers 600 mg 1-02 tablet by ity of tablet 00:00: mouth [place] 00 every 6 Medical (six) Branch hours as needed for Pain (scale 4-6). acetaminoph 2019-10 Yes [id number] 650mg Take 2 Univers en 325 mg 1-02 tablets by ity of tablet 00:00: mouth [place] 00 every 6 Medical (six) Branch hours as needed for Pain (scale 1-3). docusate 2019-10 Yes [id number] 240mg Take 1 U nivers calcium 240 1-02 capsule by it y of mg capsule 00:00: mouth once [place] 00 daily as Medical needed for Branch Constipati on. 2019-10 Yes [id number] 1{tbl} Take 1 Univers vitamin 1-02 tablet by ity of w/FA tablet 00:00: mouth [place] 00 daily. Medical Branch ibuprofen 2019-10 Yes [id number] 600mg Take 1 Univers 600 mg 1-02 tablet by ity of tablet 00:00: mouth [place] 00 every 6 Medical (six) Branch hours as needed for Pain (scale 4-6). measles, 2019-10 2020- No .5mL 0.5 mL, Unive rs mumps + 10-16 Subcutaneo ity o f rubella vac 18:00: 16:57 , ONCE, [place] (-M-R II) 00 :00 1 dose, Medica l 1,000-12,50 [place] 0 08/16/20 at TCID50/0.5 1200, mL Routine injection 0.5 mL docusate 2019-10 Yes [id number] 240mg Take 1 U nivers calcium 240 1-01 capsule by it y of mg capsule 00:00: mouth once [place] 00 daily as Medical needed for Branch Constipati on. ibuprofen 2019-10 Yes [id number] 600mg Take 1 Univers 600 mg 1-01 tablet by ity of tablet 00:00: mouth [place] 00 every 6 Medical (six) Branch hours as needed for Pain (scale 4-6). 2019-10 Yes [id number] 1{tbl} Take 1 Univers vitamin 1-01 tablet by ity of w/FA tablet 00:00: mouth [place] 00 daily. Medical Branch docusate 2019-10 Yes [id number] 240mg Take 1 U nivers calcium 240 1-01 capsule by it y of mg capsule 00:00: mouth [place] 00 daily as Medical needed for Branch Constipati on. ferrous 2019-10 Yes [id number] 325mg Take 1 Un [place] sulfate 325 1-01 tablet by ity of mg (65 mg 00:00: mouth 2 [place] iron) 00 (two) Medical tablet times Branch daily. ibuprofen 2019-10 Yes [id number] 600mg Take 1 Univers 600 mg 1-01 tablet by ity of tablet 00:00: mouth [place] 00 every 6 Medical (six) Branch hours as needed (Pain). Take with food or milk. ferrous 2019-10 Yes [id number] 325mg Take 1 Un [place] sulfate 325 1-01 tablet by ity of mg (65 mg 00:00: mouth 2 [place] iron) 00 (two) Medical tablet times Branch daily. ferrous 2019-10 Yes [id number] 325mg Take 1 Un [place] sulfate 325 1-01 tablet by ity of mg (65 mg 00:00: mouth 2 [place] iron) 00 (two) Medical tablet times Branch daily. ferrous 2019-10 Yes [id number] 325mg Take 1 Un [place] sulfate 325 1-01 tablet by ity of mg (65 mg 00:00: mouth 2 [place] iron) 00 (two) Medical tablet times Branch daily. acetaminoph 2019-10- No [id number] 650mg Take 2 Univers en 325 mg 1-10 26-02 tablets by ity of tablet 00:00: 04:59 mouth [place] 00 :00 every 6 Medical (six) Branch hours as needed for Pain (scale 1-3). measles, 2019-10 2020- No [id number] .5mL inject 0.5 Univers mumps + - 11-02 mL under ity of rubella vac [...] Discontinu ed, Routine, Pain (scale 7-10) lactated 2019-10- No IV Univers ringers IV 008-15 Infusion, ity of infusion 13:42: 23:29 CONTINUOUS [place] 00 :23 PRN, Medical Starting Branch 08/15/20 at 0842, Until Discontinu ed, Routine, Intra-op sodium 2019-10- No 30mL 30 mL, Univers citrate-cit 008-15 Oral, ity of lana acid 13:15: 13:32 ONCE, 1 [place] (BICITRA) 00 :00 dose, Sat Medic al 500-334 08/15/20 Branch mg/5 mL at 0830, solution 30 Routine mL rho(D) 2019-10 Yes 300ug 300 mcg, Univer s immune 0 Intramuscu ity of globulin 03:12: lar, ONCE, [...] 0 Piggyback, ity of sod.chlr 03:12: Q6HPRN, [place] (BENADRYL) 19 Starting Medic al 25 mg/50 mL Fri Branch piggyback 08/14/20 25 mg at 2212, Until Discontinu ed, 50 mL ondansetron 2019-10 Yes 4mg 4 mg, Slow Univers (ZOFRAN 0-31 IV Push, ity of (PF)) 03:12: Q8HPRN, [place] injection 4 19 Starting Medi kavon mg Fri Branch 08/14/20 at 2211, Until Discontinu ed, Routine, Nausea and Vomiting (N/V) simethicone 2019-10 Yes 160mg 160 mg, Un [place] (GAS RELIEF 0-31 Oral, ity of (SIMETHICON 03:12: PC+HSPRN, [place] E)) 19 Starting Medical chewable Fri Branch tablet 160 08/14/20 mg at 2211, Until Discontinu ed, Routine, [...] 0-31 Oral, ity of (TYLENOL) 03:12: Q6HPRN, [place] tablet 650 18 Starting Medic al mg [...] Mon Medical topical 08/14/20 Branch spray at 2212, Until Discontinu ed, Routine, Perineum discomfort diphenhydrA 2019-10- No 25mg 25 mg, Uni vers MINE 0-30 10-30 Slow IV ity of (BENADRYL) 23:30: 23:38 Push, [place] injection 00 :00 ONCE, 1 Medical 25 mg dose, Fri Branch 08/14/20 at 1845, Routine sodium 2019-10- No 30mL 30 mL, Univers citrate-cit 0-30 [...] 1 dose, Starting 08/14/20 at 1255, Until 08/14/20 at 1331, Routine terbutaline 2019-10 No .25mg 0.25 mg, Univers (BRETHINE) 0-30 [...] , Starting Branch 08/14/20 at 0500, Until 08/14/20 at 2212, Routine proMETHazin 2019-10- No 25mg 25 mg, IV Univers e 0-30 10-31 Piggyback, ity of (PHENERGAN) 09:58: 03:12 Q4HPRN, [place] 25 mg in 29 :25 Starting Medical NaCl 0.9% Fri Branch (NS) 50 mL 08/14/20 piggyback at 0458, Until Mon08/14/20 at 2212, 50 mL FENTanyl PF 2019-10- No 100ug 100 mcg, Univers (SUBLIMAZE 0-30 10-31 Slow IV ity o f (PF)) 09:58: 03:12 Push, [place] injection 14 :25 Q1HPRN, Medical 100 mcg Starting Branch Mon08/14/20 at 0458, Until Mon08/14/20 at 2212, Routine, Pain (scale 4-6), Pain (scale 7-10) LR 1000 mL 2019-10- No 2mU/min at 6-120 Univers + oxytocin 0-30 10-31 mL/hr, IV ity of 20 units IV 09:45: 03:12 Infusion, [place] Solution 00 :25 TITRATE, Medical Starting Branch Mon08/14/20 at 0445, Until Mon08/14/20 at 2212, VEENA ascorbic 2019-10 Yes [id number] 500mg Take 1 U nivers acid, 0-19 tablet by ity of vitamin C, 00:00: mouth 3 [place] 500 mg 00 (three) Medical tablet times Branch daily. ferrous 2019-10 Yes [id number] 325mg Take 1 Un [place] sulfate 325 0-19 tablet by ity of mg (65 mg 00:00: mouth 2 [place] iron) 00 (two) Medical tablet times Branch daily. ascorbic 2019-10 Yes [id number] 500mg Take 1 U nivers acid, 0-19 tablet by ity of vitamin C, 00:00: mouth 3 [place] 500 mg 00 (three) Medical tablet times Branch daily. ferrous 2019-10 Yes [id number] 325mg Take 1 Un [place] sulfate 325 0-19 tablet by ity of mg (65 mg 00:00: mouth 2 [place] iron) 00 (two) Medical tablet times Branch daily. ascorbic 2019-10 Yes [id number] 500mg Take 1 U nivers acid, 0-19 tablet by ity of vitamin C, 00:00: mouth 3 [place] 500 mg 00 (three) Medical tablet times Branch daily. ferrous 2019- Yes [id number] 325mg Take 1 Un [place] sulfate 325 0-19 tablet by ity of mg (65 mg 00:00: mouth 2 [place] iron) 00 (two) Medical tablet times Branch daily. ascorbic 2019-10 Yes [id number] 500mg Take 1 U nivers acid, 0-19 tablet by ity of vitamin C, 00:00: mouth 3 [place] 500 mg 00 (three) Medical tablet times Branch daily. ferrous 2020- Yes [id number] 325mg Take 1 Un [place] sulfate 325 0-19 tablet by ity of mg (65 mg 00:00: mouth 2 [place] iron) 00 (two) Medical tablet times Branch daily. ascorbic 2019- Yes [id number] 500mg Take 1 U nivers acid, 0-19 tablet by ity of vitamin C, 00:00: mouth 3 [place] 500 mg 00 (three) Medical tablet times Branch daily. ferrous 2019- Yes [id number] 325mg Take 1 Un [place] sulfate 325 0-19 tablet by ity of mg (65 mg 00:00: mouth 2 [place] iron) 00 (two) Medical tablet times Branch daily. ascorbic 2019-10 2020- No [id number] 500mg Take 1 Univers acid, 0-19 11- tablet by ity of vitamin C, 00:00: 00:00 mouth 3 [place] 500 mg 00 :00 (three) Medical tablet times Branch daily. ferrous 2019-10 2020- No [id number] 325mg Take 1 U nivers sulfate 325 0-19 - tablet by it y of mg (65 mg 00:00: 00:00 mouth 2 [place] iron) 00 :00 (two) Medical tablet times Branch daily. SERTraline 2020-0 Yes [id number] 50mg Take 1 U nivers (ZOLOFT) 50 4-06 tablet by ity of mg tablet 00:00: mouth [place] 00 daily. Medical Branch SERTraline 2020-0 Yes [id number] 50mg Take 1 U nivers (ZOLOFT) 50 4-06 tablet by ity of mg tablet 00:00: mouth [place] 00 daily. Medical Branch SERTraline 2020-0 Yes [id number] 50mg Take 1 U nivers (ZOLOFT) 50 4-06 tablet by ity of mg tablet 00:00: mouth [place] 00 daily. Medical Branch SERTraline 2020-0 Yes [id number] 50mg Take 1 U nivers (ZOLOFT) 50 4-06 tablet by ity of mg tablet 00:00: mouth [place] 00 daily. Medical Branch SERTraline 2020-0 Yes [id number] 50mg Take 1 U nivers (ZOLOFT) 50 4-06 tablet by ity of mg tablet 00:00: mouth [place] 00 daily. Medical Branch SERTraline 2020-0 Yes [id number] 50mg Take 1 U nivers (ZOLOFT) 50 4-06 tablet by ity of mg tablet 00:00: mouth [place] 00 daily. Medical Branch SERTraline 2020-0 Yes [id number] 50mg Take 1 U nivers (ZOLOFT) 50 4-06 tablet by ity of mg tablet 00:00: mouth [place] 00 daily. Medical Branch SERTraline 2019-0 Yes [id number] 50mg Take 1 U nivers (ZOLOFT) 50 4-06 tablet by ity of mg tablet 00:00: mouth [place] 00 daily. Medical Branch SERTraline 2019-0 Yes [id number] 50mg Take 1 U nivers (ZOLOFT) 50 4-06 tablet by ity of mg tablet 00:00: mouth [place] 00 daily. Medical Branch SERTraline 2019-0 Yes [id number] 50mg Take 1 U nivers (ZOLOFT) 50 4-06 tablet by ity of mg tablet 00:00: mouth [place] 00 daily. Medical Branch SERTraline 2019-0 Yes [id number] 50mg Take 1 U nivers (ZOLOFT) 50 4-06 tablet by ity of mg tablet 00:00: mouth [place] 00 daily. Medical Branch SERTraline 2019-0 Yes [id number] 50mg Take 1 U nivers (ZOLOFT) 50 4-06 tablet by ity of mg tablet 00:00: mouth [place] 00 daily. Medical Branch SERTraline 2019-0 Yes [id number] 50mg Take 1 U nivers (ZOLOFT) 50 4-06 tablet by ity of mg tablet 00:00: mouth [place] 00 daily. Medical Branch SERTraline 2020-0 Yes [id number] 50mg Take 1 U nivers (ZOLOFT) 50 4-06 tablet by ity of mg tablet 00:00: mouth [place] 00 daily. Medical Branch SERTraline 2020-0 Yes [id number] 50mg Take 1 U nivers (ZOLOFT) 50 4-06 tablet by ity of mg tablet 00:00: mouth [place] 00 daily. Medical Branch SERTraline 2020-0 Yes [id number] 50mg Take 1 U nivers (ZOLOFT) 50 4-06 tablet by ity of mg tablet 00:00: mouth [place] 00 daily. Medical Branch SERTraline 2020-0 Yes [id number] 50mg Take 1 U nivers (ZOLOFT) 50 4-06 tablet by ity of mg tablet 00:00: mouth [place] 00 daily. Medical Branch SERTraline 2020-0 Yes [id number] 50mg Take 1 U nivers (ZOLOFT) 50 4-06 tablet by ity of mg tablet 00:00: mouth [place] 00 daily. Medical Branch SERTraline 2020-0 Yes [id number] 50mg Take 1 U nivers (ZOLOFT) 50 4-06 tablet by ity of mg tablet 00:00: mouth [place] 00 daily. Medical Branch SERTraline 2019-0 Yes [id number] 50mg Take 1 U nivers (ZOLOFT) 50 4-06 tablet by ity of mg tablet 00:00: mouth [place] 00 daily. Medical Branch SERTraline 2019-0 Yes [id number] 50mg Take 1 U nivers (ZOLOFT) 50 4-06 tablet by ity of mg tablet 00:00: mouth [place] 00 daily. Medical Branch SERTraline 2019-0 Yes [id number] 50mg Take 1 U nivers (ZOLOFT) 50 4-06 tablet by ity of mg tablet 00:00: mouth [place] 00 daily. Medical Branch SERTraline 2019-0 Yes [id number] 50mg Take 1 U nivers (ZOLOFT) 50 4-06 tablet by ity of mg tablet 00:00: mouth [place] 00 daily. Medical Branch SERTraline 2019-0 Yes [id number] 50mg Take 1 U nivers (ZOLOFT) 50 4-06 tablet by ity of mg tablet 00:00: mouth [place] 00 daily. Medical Branch SERTraline 2020-0 Yes [id number] 50mg Take 1 U nivers (ZOLOFT) 50 4-06 tablet by ity of mg tablet 00:00: mouth [place] 00 daily. Medical Branch SERTraline 2020-0 Yes [id number] 50mg Take 1 U nivers (ZOLOFT) 50 4-06 tablet by ity of mg tablet 00:00: mouth [place] 00 daily. [facility] SERTraline 2020-0 Yes [id number] 50mg Take 1 U nivers (ZOLOFT) 50 4-06 tablet by ity of mg tablet 00:00: mouth [place] 00 daily. [facility] SERTraline 2020-0 Yes [id number] 50mg Take 1 U nivers (ZOLOFT) 50 4-06 tablet by ity of mg tablet 00:00: mouth [place] 00 daily. Medical Branch SERTraline 2020-0 Yes [id number] 50mg Take 1 U nivers (ZOLOFT) 50 4-06 tablet by ity of mg tablet 00:00: mouth [place] 00 daily. Medical Branch SERTraline 2020-0 Yes [id number] 50mg Take 1 U nivers (ZOLOFT) 50 4-06 tablet by ity of mg tablet 00:00: mouth [place] 00 daily. [facility] SERTraline 2020-0 Yes [id number] 50mg Take 1 U nivers (ZOLOFT) 50 4-06 tablet by ity of mg tablet 00:00: mouth [place] 00 daily. [facility] SERTraline 2019-0 Yes [id number] 50mg Take 1 U nivers (ZOLOFT) 50 4-06 tablet by ity of mg tablet 00:00: mouth [place] 00 daily. [facility] SERTraline 2020-0 Yes [id number] 50mg Take 1 U nivers (ZOLOFT) 50 4-06 tablet by ity of mg tablet 00:00: mouth [place] 00 daily. [facility] SERTraline 2019-0 Yes [id number] 50mg Take 1 U nivers (ZOLOFT) 50 4-06 tablet by ity of mg tablet 00:00: mouth [place] 00 daily. [facility] SERTraline 2020-0 Yes [id number] 50mg Take 1 U nivers (ZOLOFT) 50 4-06 tablet by ity of mg tablet 00:00: mouth [place] 00 daily. [facility] SERTraline 2020-0 Yes [id number] 50mg Take 1 U nivers (ZOLOFT) 50 4-06 tablet by ity of mg tablet 00:00: mouth [place] 00 daily. [facility] SERTraline 2020-0 Yes [id number] 50mg Take 1 U nivers (ZOLOFT) 50 4-06 tablet by ity of mg tablet 00:00: mouth [place] 00 daily. [facility] SERTraline 2020-0 Yes [id number] 50mg Take 1 U nivers (ZOLOFT) 50 4-06 tablet by ity of mg tablet 00:00: mouth [place] 00 daily. [facility] SERTraline 2020-0 Yes [id number] 50mg Take 1 U nivers (ZOLOFT) 50 4-06 tablet by ity of mg tablet 00:00: mouth [place] 00 daily. Medical Branch SERTraline 2020-0 Yes [id number] 50mg Take 1 U nivers (ZOLOFT) 50 4-06 tablet by ity of mg tablet 00:00: mouth [place] 00 daily. Medical Branch SERTraline 2020-0 Yes [id number] 50mg Take 1 U nivers (ZOLOFT) 50 4-06 tablet by ity of mg tablet 00:00: mouth [place] 00 daily. Medical Branch SERTraline 2020-0 Yes [id number] 50mg Take 1 U nivers (ZOLOFT) 50 4-06 tablet by ity of mg tablet 00:00: mouth [place] 00 daily. Medical Branch SERTraline 2020-0 Yes [id number] 50mg Take 1 U nivers (ZOLOFT) 50 4-06 tablet by ity of mg tablet 00:00: mouth [place] 00 daily. Medical Branch SERTraline 2020-0 Yes [id number] 50mg Take 1 U nivers (ZOLOFT) 50 4-06 tablet by ity of mg tablet 00:00: mouth [place] 00 daily. Medical Branch SERTraline 2020-0 Yes [id number] 50mg Take 1 U nivers (ZOLOFT) 50 4-06 tablet by ity of mg tablet 00:00: mouth [place] 00 daily. Medical Branch SERTraline 2020-0 Yes [id number] 50mg Take 1 U nivers (ZOLOFT) 50 4-06 tablet by ity of mg tablet 00:00: mouth [place] 00 daily. Medical Branch SERTraline 2020-0 Yes [id number] 50mg Take 1 U nivers (ZOLOFT) 50 4-06 tablet by ity of mg tablet 00:00: mouth [place] 00 daily. Medical Branch SERTraline 2020-0 Yes [id number] 50mg Take 1 U nivers (ZOLOFT) 50 4-06 tablet by ity of mg tablet 00:00: mouth [place] 00 daily. Medical Branch proMETHazin 2020-0 Yes [id number] 25mg Take 1 Univers e 25 mg 3-19 tablet by ity of tablet 00:00: mouth [place] 00 every 6 Medical (six) Branch hours as needed for Nausea and Vomiting (N/V). proMETHazin 2020-0 Yes [id number] 25mg Take 1 Univers e 25 mg 3-19 tablet by ity of tablet 00:00: mouth [place] 00 every 6 Medical (six) Branch hours as needed for Nausea and Vomiting (N/V). proMETHazin 2020-0 Yes [id number] 25mg Take 1 Univers e 25 mg 3-19 tablet by ity of tablet 00:00: mouth [place] 00 every 6 Medical (six) Branch hours as needed for Nausea and Vomiting (N/V). proMETHazin 2020-0 Yes [id number] 25mg Take 1 Univers e 25 mg 3-19 tablet by ity of tablet 00:00: mouth [place] 00 every 6 Medical (six) Branch hours as needed for Nausea and Vomiting (N/V). proMETHazin 2020-0 Yes [id number] 25mg Take 1 Univers e 25 mg 3-19 tablet by ity of tablet 00:00: mouth [place] 00 every 6 Medical (six) Branch hours as needed for Nausea and Vomiting (N/V). proMETHazin 2020-0 Yes [id number] 25mg Take 1 Univers e 25 mg 3-19 tablet by ity of tablet 00:00: mouth [place] 00 every 6 Medical (six) Branch hours as needed for Nausea and Vomiting (N/V). proMETHazin 2020-0 Yes [id number] 25mg Take 1 Univers e 25 mg 3-19 tablet by ity of tablet 00:00: mouth [place] 00 every 6 Medical (six) Branch hours as needed for Nausea and Vomiting (N/V). proMETHazin 2020-0 Yes [id number] 25mg Take 1 Univers e 25 mg 3-19 tablet by ity of tablet 00:00: mouth [place] 00 every 6 Medical (six) Branch hours as needed for Nausea and Vomiting (N/V). proMETHazin 2020-0 Yes [id number] 25mg Take 1 Univers e 25 mg 3-19 tablet by ity of tablet 00:00: mouth [place] 00 every 6 Medical (six) Branch hours as needed for Nausea and Vomiting (N/V). proMETHazin 2020-0 Yes [id number] 25mg Take 1 Univers e 25 mg 3-19 tablet by ity of tablet 00:00: mouth [place] 00 every 6 Medical (six) Branch hours as needed for Nausea and Vomiting (N/V). proMETHazin 2020-0 Yes [id number] 25mg Take 1 Univers e 25 mg 3-19 tablet by ity of tablet 00:00: mouth [place] 00 every 6 Medical (six) Branch hours as needed for Nausea and Vomiting (N/V). proMETHazin 2020-0 Yes [id number] 25mg Take 1 [facility] e 25 mg 3-19 tablet by ity of tablet 00:00: mouth [place] 00 every 6 Medical (six) Branch hours as needed for Nausea and Vomiting (N/V). proMETHazin 2020-0 Yes [id number] 25mg Take 1 [facility] e 25 mg 3-19 tablet by ity of tablet 00:00: mouth [place] 00 every 6 Medical (six) Branch hours as needed for Nausea and Vomiting (N/V). proMETHazin 2020-0 Yes [id number] 25mg Take 1 [facility] e 25 mg 3-19 tablet by ity of tablet 00:00: mouth [place] 00 every 6 Medical (six) Branch hours as needed for Nausea and Vomiting (N/V). proMETHazin 2020-0 Yes [id number] 25mg Take 1 [facility] e 25 mg 3-19 tablet by ity of tablet 00:00: mouth [place] 00 every 6 Medical (six) Branch hours as needed for Nausea and Vomiting (N/V). proMETHazin 2020-0 Yes [id number] 25mg Take 1 [facility] e 25 mg 3-19 tablet by ity of tablet 00:00: mouth [place] 00 every 6 Medical (six) Branch hours as needed for Nausea and Vomiting (N/V). proMETHazin 2020-0 Yes [id number] 25mg Take 1 [facility] e 25 mg 3-19 tablet by ity of tablet 00:00: mouth [place] 00 every 6 Medical (six) Branch hours as needed for Nausea and Vomiting (N/V). proMETHazin 2020-0 Yes [id number] 25mg Take 1 [facility] e 25 mg 3-19 tablet by ity of tablet 00:00: mouth [place] 00 every 6 Medical (six) Branch hours as needed for Nausea and Vomiting (N/V). proMETHazin 2020-0 Yes [id number] 25mg Take 1 [facility] e 25 mg 3-19 tablet by ity of tablet 00:00: mouth [place] 00 every 6 Medical (six) Branch hours as needed for Nausea and Vomiting (N/V). proMETHazin 2020-0 Yes [id number] 25mg Take 1 [facility] e 25 mg 3-19 tablet by ity of tablet 00:00: mouth [place] 00 every 6 Medical (six) Branch hours as needed for Nausea and Vomiting (N/V). proMETHazin 2020-0 Yes [id number] 25mg Take 1 [facility] e 25 mg 3-19 tablet by ity of tablet 00:00: mouth [place] 00 every 6 Medical (six) Branch hours as needed for Nausea and Vomiting (N/V). proMETHazin 2020-0 Yes [id number] 25mg Take 1 [facility] e 25 mg 3-19 tablet by ity of tablet 00:00: mouth [place] 00 every 6 Medical (six) Branch hours as needed for Nausea and Vomiting (N/V). proMETHazin 2020-0 Yes [id number] 25mg Take 1 [facility] e 25 mg 3-19 tablet by ity of tablet 00:00: mouth [place] 00 every 6 Medical (six) Branch hours as needed for Nausea and Vomiting (N/V). proMETHazin 2020-0 Yes [id number] 25mg Take 1 [facility] 25 mg 3-19 tablet by ity of tablet 00:00: mouth [place] 00 every 6 Medical (six) Branch hours as needed for Nausea and Vomiting (N/V). proMETHazin 2020-0 Yes [id number] 25mg Take 1 [facility] e 25 mg 3-19 tablet by ity of tablet 00:00: mouth [place] 00 every 6 Medical (six) Branch hours as needed for Nausea and Vomiting (N/V). proMETHazin 2020-0 Yes [id number] 25mg Take 1 [facility] e 25 mg 3-19 tablet by ity of tablet 00:00: mouth [place] 00 every 6 Medical (six) Branch hours as needed for Nausea and Vomiting (N/V). proMETHazin 2020-0 Yes [id number] 25mg Take 1 [facility] e 25 mg 3-19 tablet by ity of tablet 00:00: mouth [place] 00 every 6 Medical (six) Branch hours as needed for Nausea and Vomiting (N/V). proMETHazin 2020-0 Yes [id number] 25mg Take 1 [facility] e 25 mg 3-19 tablet by ity of tablet 00:00: mouth [place] 00 every 6 Medical (six) Branch hours as needed for Nausea and Vomiting (N/V). proMETHazin 2020-0 Yes [id number] 25mg Take 1 [facility] e 25 mg 3-19 tablet by ity of tablet 00:00: mouth [place] 00 every 6 Medical (six) Branch hours as needed for Nausea and Vomiting (N/V). proMETHazin 2020-0 Yes [id number] 25mg Take 1 [facility] e 25 mg 3-19 tablet by ity of tablet 00:00: mouth [place] 00 every 6 Medical (six) Branch hours as needed for Nausea and Vomiting (N/V). proMETHazin 2020-0 Yes [id number] 25mg Take 1 [facility] e 25 mg 3-19 tablet by ity of tablet 00:00: mouth [place] 00 every 6 Medical (six) Branch hours as needed for Nausea and Vomiting (N/V). proMETHazin 2020-0 Yes [id number] 25mg Take 1 [facility] e 25 mg 3-19 tablet by ity of tablet 00:00: mouth [place] 00 every 6 Medical (six) Branch hours as needed for Nausea and Vomiting (N/V). proMETHazin 2020-0 Yes [id number] 25mg Take 1 [facility] e 25 mg 3-19 tablet by ity of tablet 00:00: mouth [place] 00 every 6 Medical (six) Branch hours as needed for Nausea and Vomiting (N/V). proMETHazin 2020-0 Yes [id number] 25mg Take 1 [facility] e 25 mg 3-19 tablet by ity of tablet 00:00: mouth [place] 00 every 6 Medical (six) Branch hours as needed for Nausea and Vomiting (N/V). proMETHazin 2020-0 Yes [id number] 25mg Take 1 [facility] e 25 mg 3-19 tablet by ity of tablet 00:00: mouth [place] 00 every 6 Medical (six) Branch hours as needed for Nausea and Vomiting (N/V). proMETHazin 2020-0 Yes [id number] 25mg Take 1 [facility] e 25 mg 3-19 tablet by ity of tablet 00:00: mouth [place] 00 every 6 Medical (six) Branch hours as needed for Nausea and Vomiting (N/V). proMETHazin 2020-0 Yes [id number] 25mg Take 1 [facility] e 25 mg 3-19 tablet by ity of tablet 00:00: mouth [place] 00 every 6 Medical (six) Branch hours as needed for Nausea and Vomiting (N/V). proMETHazin 2020-0 Yes [id number] 25mg Take 1 [facility] e 25 mg 3-19 tablet by ity of tablet 00:00: mouth [place] 00 every 6 Medical (six) Branch hours as needed for Nausea and Vomiting (N/V). proMETHazin 2020-0 Yes [id number] 25mg Take 1 [facility] e 25 mg 3-19 tablet by ity of tablet 00:00: mouth [place] 00 every 6 Medical (six) Branch hours as needed for Nausea and Vomiting (N/V). proMETHazin 2020-0 Yes [id number] 25mg Take 1 [facility] e 25 mg 3-19 tablet by ity of tablet 00:00: mouth [place] 00 every 6 Medical (six) Branch hours as needed for Nausea and Vomiting (N/V). proMETHazin 2020-0 Yes [id number] 25mg Take 1 [facility] e 25 mg 3-19 tablet by ity of tablet 00:00: mouth [place] 00 every 6 Medical (six) Branch hours as needed for Nausea and Vomiting (N/V). proMETHazin 2020-0 Yes [id number] 25mg Take 1 [facility] e 25 mg 3-19 tablet by ity of tablet 00:00: mouth [place] 00 every 6 Medical (six) Branch hours as needed for Nausea and Vomiting (N/V). proMETHazin 2020-0 Yes [id number] 25mg Take 1 [facility] e 25 mg 3-19 tablet by ity of tablet 00:00: mouth [place] 00 every 6 Medical (six) Branch hours as needed for Nausea and Vomiting (N/V). proMETHazin 2020-0 Yes [id number] 25mg Take 1 [facility] e 25 mg 3-19 tablet by ity of tablet 00:00: mouth [place] 00 every 6 Medical (six) Branch hours as needed for Nausea and Vomiting (N/V). proMETHazin 2020-0 Yes [id number] 25mg Take 1 [facility] e 25 mg 3-19 tablet by ity of tablet 00:00: mouth [place] 00 every 6 Medical (six) Branch hours as needed for Nausea and Vomiting (N/V). proMETHazin 2020-0 2020- No [id number] 25mg Take 1 Univers e 25 mg 3-19 08-16 tablet by ity of tablet 00:00: 00:00 mouth [place] 00 :00 every 6 Medical (six) Branch hours as needed for Nausea and Vomiting (N/V). No known No Univers medications ity of [facility] Immunizations Ordered Filled Immunization Date Status Comments [facility] e Immunization Name Name MMR 2020-08-16 Completed University of 00:00:00 [facility] MMR 2020-08-16 Completed University 00:00:00 [facility] MMR 2020-08-16 Completed University 00:00:00 [facility] Influenza Virus 2020-01-02 Completed Universit y of [...] y of Vaccine Quad .5 mL 00:00:00 [place] [facility] 6+ MO Branch Tdap 2018-10-18 Completed University of 00:00:00 [facility] Tdap 2018-10-18 Completed University of 00:00:00 [facility] Tdap 2018-10-18 Completed University of 00:00:00 [facility] TDAP 2018-10-18 Completed University of 00:00:00 [facility] TDAP 2018-10-18 Completed University of 00:00:00 [facility] TDAP 2018-10-18 Completed University of 00:00:00 [facility] TDAP 2018-10-18 Completed University of 00:00:00 [place] [facility] TDAP 2018-10-18 Completed University of 00:00:00 [place] [facility] Tdap 2018-10-18 Completed University of 00:00:00 [place] [facility] TDAP 2018-10-18 Completed University of 00:00:00 [place] [facility] TDAP 2018-10-18 Completed University of 00:00:00 [place] [facility] TDAP 2018-10-18 Completed University of 00:00:00 [place] [facility] TDAP 2018-10-18 Completed University of 00:00:00 [place] [facility] TDAP 2018-10-18 Completed University of 00:00:00 [place] [facility] TDAP 2018-10-18 Completed University of 00:00:00 [place] [facility] TDAP 2018-10-18 Completed University of 00:00:00 [place] [facility] TDAP 2018-10-18 Completed University of 00:00:00 [place] [facility] TDAP 2018-10-18 Completed University of 00:00:00 [place] [facility] TDAP 2018-10-18 Completed University of 00:00:00 [place] [facility] TDAP 2018-10-18 Completed University of 00:00:00 [place] [facility] TDAP 2018-10-18 Completed University of 00:00:00 [place] [facility] TDAP 2018-10-18 Completed University of 00:00:00 [place] [facility] TDAP 2018-10-18 Completed University of 00:00:00 [place] [facility] TDAP 2018-10-18 Completed University of 00:00:00 [place] [facility] TDAP 2018-10-18 Completed University of 00:00:00 [place] [facility] TDAP 2018-10-18 Completed University of 00:00:00 [place] [facility] TDAP 2018-10-18 Completed University of 00:00:00 [place] [facility] TDAP 2018-10-18 Completed University of 00:00:00 [place] [facility] Tdap 2018-10-18 Completed University of 00:00:00 [place] [facility] TDAP 2018-10-18 Completed University of 00:00:00 [place] [facility] TDAP 2018-10-18 Completed University of 00:00:00 [place] [facility] TDAP 2018-10-18 Completed University of 00:00:00 [place] [facility] TDAP 2018-10-18 Completed University of 00:00:00 [place] [facility] Tdap 2018-10-18 Completed University of 00:00:00 [facility] Branch TDAP 2018-10-18 Completed University of 00:00:00 [place] [facility] TDAP 2018-10-18 Completed University of 00:00:00 [place] [facility] TDAP 2018-10-18 Completed University of 00:00:00 [place] [facility] Tdap 2018-10-18 Completed University of 00:00:00 [facility] Tdap 2018-10-18 Completed University of 00:00:00 [place] [facility] Tdap 2018-10-18 Completed University of 00:00:00 [place] [facility] Tdap 2018-10-18 Completed University of 00:00:00 [facility] Branch Tdap 2018-10-18 Completed University of 00:00:00 [place] [facility] Tdap 2018-10-18 Completed University of 00:00:00 [place] [facility] Tdap 2018-10-18 Completed University of 00:00:00 [facility] Branch Tdap 2018-10-18 Completed University of 00:00:00 [facility] Tdap 2018-10-18 Completed University of 00:00:00 [facility] Tdap 2018-10-18 Completed University of 00:00:00 [facility] Tdap 2018-10-18 Completed University of 00:00:00 [facility] Tdap 2018-10-18 Completed University of 00:00:00 [facility] Tdap 2018-10-18 Completed University of 00:00:00 [facility] Influenza Virus 2018-08-20 Completed Universit y of Vaccine Quad IM 00:00:00 [place] [facility] Multi-dose 6+ MO Branch Influenza Virus 2018-08-20 Completed Universit y of Vaccine Quad IM 00:00:00 [place] [facility] Multi-dose 6+ MO Branch Influenza [...] Universit y of Vaccine Quad IM 00:00:00 [place] [facility] Multi-dose 6+ MO Branch Influenza [...] Universit y of Vaccine [facility] IM 00:00:00 [place] [facility] Multi-dose 6+ MO Branch Influenza Virus 2018-08-20 Completed Universit y of Vaccine [facility] IM 00:00:00 [place] [facility] Multi-dose 6+ MO Branch Influenza Virus 2018-08-20 Completed Universit y of Vaccine [facility] IM 00:00:00 [place] [facility] Multi-dose 6+ MO Branch Influenza Virus 2018-08-20 Completed Universit y of Vaccine [facility] IM 00:00:00 [place] [facility] Multi-dose 6+ MO Branch Influenza Virus 2018-08-20 Completed Universit y of Vaccine [facility] IM 00:00:00 [place] [facility] Multi-dose 6+ MO Branch HPV 2015-05-06 Completed University of 00:00:00 [facility] HPV 2015-05-06 Completed University of 00:00:00 [facility] HPV 2015-05-06 Completed University of 00:00:00 [facility] HPV 2015-05-06 Completed University of 00:00:00 [facility] HPV 2015-05-06 Completed University of 00:00:00 [facility] HPV 2015-05-06 Completed University of 00:00:00 [facility] HPV 2015-05-06 Completed University of 00:00:00 [facility] HPV 2015-05-06 Completed University of 00:00:00 [facility] HPV 2015-05-06 Completed University of 00:00:00 [facility] HPV 2015-05-06 Completed University of 00:00:00 [place] [...] Branch Td 2008-10-16 Completed University of 00:00:00 [place] [facility] Td 2008-10-16 Completed University of 00:00:00 [facility] Td 2008-10-16 Completed University of 00:00:00 [facility] Td 2008-10-16 Completed University of 00:00:00 [facility] Td 2008-10-16 Completed University of 00:00:00 [facility] Td 2008-10-16 Completed University of 00:00:00 [facility] Td 2008-10-16 Completed University of 00:00:00 [place] [facility] Td 2008-10-16 Completed University of 00:00:00 [facility] Td 2008-10-16 Completed University of 00:00:00 [facility] Td 2008-10-16 Completed University of 00:00:00 [facility] Td 2008-10-16 Completed University of 00:00:00 [facility] Td 2008-10-16 Completed University of 00:00:00 [facility] Td 2008-10-16 Completed University of 00:00:00 [facility] Td 2008-10-16 Completed University of 00:00:00 [facility] Td 2008-10-16 Completed University of 00:00:00 [facility] Td 2008-10-16 Completed University of 00:00:00 [facility] Td 2008-10-16 Completed University of 00:00:00 [facility] Td 2008-10-16 Completed University of 00:00:00 [facility] Td 2008-10-16 Completed University of 00:00:00 [facility] Td 2008-10-16 Completed University of 00:00:00 [facility] Td 2008-10-16 Completed University of 00:00:00 [facility] Td 2008-10-16 Completed University of 00:00:00 [facility] Td 2008-10-16 Completed University of 00:00:00 [facility] Td 2008-10-16 Completed University of 00:00:00 [facility] Td 2008-10-16 Completed University of 00:00:00 [facility] Td 2008-10-16 Completed University of 00:00:00 [facility] Td 2008-10-16 Completed University of 00:00:00 [facility] Td 2008-10-16 Completed University of 00:00:00 [facility] Td 2008-10-16 Completed University of 00:00:00 [facility] Td 2008-10-16 Completed University of 00:00:00 [facility] Td 2008-10-16 Completed University of 00:00:00 [facility] Td 2008-10-16 Completed University of 00:00:00 [facility] Td 2008-10-16 Completed University of 00:00:00 [place] [facility] Td 2008-10-16 Completed University of 00:00:00 [facility] Td 2008-10-16 Completed University of 00:00:00 [place] [facility] Td 2008-10-16 Completed University of 00:00:00 [facility] Branch Vital Signs Vital Name Observation Time Observation Value Comments Source Systolic blood 2020-09-07 16:25:00 103 mm[Hg] Univer sity of pressure [place] [facility] Diastolic blood 2020-09-07 16:25:00 67 mm[Hg] Unive rsity of pressure [facility] Heart rate 2020-09-07 16:25:00 61 /min Universi ty of [place] [facility] Body temperature 2020-09-07 16:25:00 36.83 [place] Univ ersity of [place] [facility] Respiratory rate 2020-09-07 16:25:00 16 /min Univ ersity of [facility] Branch Body height 2020-09-07 16:25:00 165.1 cm Universi ty of [place] [facility] Body weight 2020-09-07 16:25:00 74.299 kg Universi ty of [place] [facility] BMI 2020-09-07 16:25:00 27.26 kg/m2 Universi ty of [place] [facility] Systolic blood 2020-09-07 16:25:00 103 mm[Hg] Univer sity of pressure [facility] Diastolic blood 2020-09-07 16:25:00 67 mm[Hg] Unive rsity of pressure [facility] Heart rate 2020-09-07 16:25:00 61 /min Universi ty of [place] [facility] Body temperature 2020-09-07 16:25:00 36.83 [place] [facility] ers[facility] of [place] [facility] Respiratory rate 2020-09-07 16:25:00 16 /min Univ ersity of [facility] Body height 2020-09-07 16:25:00 165.1 cm Universi ty of [place] [facility] Body weight 2020-09-07 16:25:00 74.299 kg Universi ty of [place] [facility] BMI 2020-09-07 16:25:00 27.26 kg/m2 Universi ty of [place] [facility] Systolic blood 2020-08-16 13:55:00 125 mm[Hg] Univer sity of pressure [facility] Diastolic blood 2020-08-16 13:55:00 85 mm[Hg] Unive rsity of pressure [facility] Heart rate 2020-08-16 13:55:00 73 /min Universi ty of [place] [facility] Body temperature 2020-08-16 13:55:00 37 [place] [facility] ersity of [place] [facility] Respiratory rate 2020-08-16 13:55:00 17 /min Univ ersity of [place] [facility] Oxygen saturation in 2020-08-16 13:55:00 97 /min University of Arterial blood by [place] [facility]xim[facility] Body height 2020-08-14 15:45:00 165.1 cm Universi ty of [place] [facility] Body weight 2020-08-14 15:45:00 83.689 kg Universi ty of [facility] BMI 2020-08-14 15:45:00 30.70 kg/m2 Universi ty of [facility] Systolic blood 2020-08-16 13:55:00 125 mm[Hg] Univer sity of pressure [facility] Diastolic blood 2020-08-16 13:55:00 85 mm[Hg] Unive rsity of pressure [facility] Heart rate 2020-08-16 13:55:00 73 /min Universi ty of [facility] Body temperature 2020-08-16 13:55:00 37 [place] [facility] ersity of [place] [facility] Respiratory rate 2020-08-16 13:55:00 17 /min Univ ersity of [facility] Oxygen saturation in 2020-08-16 13:55:00 97 /min University of Arterial blood by [place] [facility] Pulse oximetry [facility] Body height 2020-08-14 15:45:00 165.1 cm Universi ty of [facility] Body weight 2020-08-14 15:45:00 83.689 kg Universi ty of [facility] BMI 2020-08-14 15:45:00 30.70 kg/m2 Universi ty of [facility] Heart rate 2020-08-11 05:30:00 83 /min [facility]i ty of [facility] Oxygen saturation in 2020-08-11 04:45:00 98 /min University of Arterial blood by [place] [facility] P[facility]xim[facility] Systolic blood 2020-08-11 04:39:00 113 mm[Hg] Univer sity of pressure [facility] Diastolic blood 2020-08-11 04:39:00 78 mm[Hg] Unive rsity of pressure [facility] Body temperature 2020-08-11 04:39:00 36.83 [place] [facility] ersity of [facility] Respiratory rate 2020-08-11 04:39:00 16 /min Univ ersity of [facility] Body height 2020-08-11 04:39:00 165.1 cm Universi ty of [facility] Body weight 2020-08-11 04:39:00 83.462 kg Universi ty of [facility] BMI 2020-08-11 04:39:00 30.62 kg/m2 Universi ty of [facility] Heart rate 2020-08-11 05:30:00 83 /min Universi ty of [facility] Oxygen saturation in 2020-08-11 04:45:00 98 /min University Arterial blood by [facility] Pulse oximetry Branch Systolic blood 2020-08-11 04:39:00 113 mm[Hg] Univer sity of pressure [facility] Diastolic blood 2020-08-11 04:39:00 78 mm[Hg] Unive rsity of pressure [facility] Body temperature 2020-08-11 04:39:00 36.83 [place] [facility] ersity of [facility] Respiratory rate 2020-08-11 04:39:00 16 /min Univ ersity of [facility] Body height 2020-08-11 04:39:00 165.1 cm Universi ty of [facility] Body weight 2020-08-11 04:39:00 83.462 kg Universi ty of [facility] BMI 2020-08-11 04:39:00 30.62 kg/m2 Universi ty of [facility] Systolic blood 2020-08-06 19:05:00 119 mm[Hg] Univer sity of pressure [facility] Branch Diastolic blood 2020-08-06 19:05:00 72 mm[Hg] Unive rsity of pressure [facility] Heart rate 2020-08-06 19:05:00 91 /min Universi ty of [facility] Body temperature 2020-08-06 19:05:00 36.72 [place] [facility] ersity of [facility] Respiratory rate 2020-08-06 19:05:00 16 /min Univ ersity of [facility] Body height 2020-08-06 19:05:00 165.1 cm Universi ty of [facility] Body weight 2020-08-06 19:05:00 81.279 kg Universi ty of [facility] BMI 2020-08-06 19:05:00 29.82 kg/m2 Universi ty of [facility] Systolic blood 2020-08-06 19:05:00 119 mm[Hg] Univer sity of pressure [facility] Diastolic blood 2020-08-06 19:05:00 72 mm[Hg] Unive rsity of pressure [facility] Heart rate 2020-08-06 19:05:00 91 /min Universi ty of [facility] Body temperature 2020-08-06 19:05:00 36.72 [place] [facility] ersity of [facility] Respiratory rate 2020-08-06 19:05:00 16 /min Univ ersity of [facility] Body height 2020-08-06 19:05:00 165.1 cm [facility]i ty of [facility] Body weight 2020-08-06 19:05:00 81.279 kg [facility]i ty of [facility] BMI 2020-08-06 19:05:00 29.82 kg/m2 [facility] ty of [facility] Systolic blood 2020-07-31 18:04:00 108 mm[Hg] Univer sity of pressure [facility] Diastolic blood 2020-07-31 18:04:00 68 mm[Hg] Unive rsity of pressure [facility] Heart rate 2020-07-31 18:04:00 81 /min Universi ty of [facility] Body temperature 2020-07-31 18:04:00 37 [place] [facility] ers[facility] of [facility] Respiratory rate 2020-07-31 18:04:00 16 /min Univ ersity of [facility] Body height 2020-07-31 18:04:00 165.1 cm [facility]i ty of [facility] Body weight 2020-07-31 18:04:00 80.105 kg [facility]i ty of [facility] BMI 2020-07-31 18:04:00 29.39 kg/m2 [facility] ty of [facility] Systolic blood 2020-07-24 14:32:00 115 mm[Hg] Univer sity of pressure [facility] Diastolic blood 2020-07-24 14:32:00 72 mm[Hg] Unive rsity of pressure [facility] Heart rate 2020-07-24 14:32:00 104 /min [facility]i ty of [facility] Body temperature 2020-07-24 14:32:00 36.72 [place] [facility] Respiratory rate 2020-07-24 14:32:00 16 /min Univ ersity of [facility] Body height 2020-07-24 14:32:00 165.1 cm [facility]i ty [facility] Body weight 2020-07-24 14:32:00 79.153 kg [facility]i ty of [facility] BMI 2020-07-24 14:32:00 29.04 kg/m2 [facility] ty of [facility] Systolic blood 2020-07-10 16:09:00 115 mm[Hg] Univer sity of pressure [facility] Diastolic blood 2020-07-10 16:09:00 69 mm[Hg] Unive rsity of pressure [facility] Heart rate 2020-07-10 16:09:00 81 /min [facility]i ty of [facility] Body temperature 2020-07-10 16:09:00 36.39 [place] [facility] Respiratory rate 2020-07-10 16:09:00 16 /min Univ ersity of [facility] Body height 2020-07-10 16:09:00 165.1 cm [facility] ty [facility] Body weight 2020-07-10 16:09:00 76.885 kg [facility]i ty of [facility] BMI 2020-07-10 16:09:00 28.21 kg/m2 [facility] ty [facility] Systolic blood 2020-06-26 13:58:00 110 mm[Hg] Univer sity of pressure [facility] Diastolic blood 2020-06-26 13:58:00 73 mm[Hg] Unive rsity of pressure [facility] Heart rate 2020-06-26 13:58:00 99 /min Universi ty of [facility] Body temperature 2020-06-26 13:58:00 36.11 [place] [facility] Respiratory rate 2020-06-26 13:58:00 16 /min Univ ersity of [facility] Body height 2020-06-26 13:58:00 162.6 cm [facility] Body weight 2020-06-26 13:58:00 74.078 kg [facility] BMI 2020-06-26 13:58:00 28.03 kg/m2 [facility] Systolic blood 2020-06-12 15:31:00 108 mm[Hg] [facility] Diastolic blood 2020-06-12 15:31:00 69 mm[Hg] [facility] Heart rate 2020-06-12 15:31:00 97 /min [facility] Body temperature 2020-06-12 15:31:00 36.11 Delma [facility] Respiratory rate 2020-06-12 15:31:00 16 /min [facility] Body height 2020-06-12 15:31:00 162.6 cm [facility] Body weight 2020-06-12 15:31:00 72.689 kg [facility] BMI 2020-06-12 15:31:00 27.51 kg/m2 [facility] Systolic blood 2020-05-28 16:20:00 114 mm[Hg] [facility] Diastolic blood 2020-05-28 16:20:00 69 mm[Hg] [facility] Heart rate 2020-05-28 16:20:00 85 /min [facility] Body temperature 2020-05-28 16:20:00 36.11 [facility] Respiratory rate 2020-05-28 16:20:00 16 /min [facility] Body height 2020-05-28 16:20:00 162.6 cm [facility] Body weight 2020-05-28 16:20:00 70.988 kg [facility] BMI 2020-05-28 16:20:00 26.86 kg/m2 [facility] Systolic blood 2020-04-28 15:52:00 114 mm[Hg] [facility] Diastolic blood 2020-04-28 15:52:00 73 mm[Hg] [facility] Heart rate 2020-04-28 15:52:00 87 /min [facility] Body temperature 2020-04-28 15:52:00 36.22 [facility] Respiratory rate 2020-04-28 15:52:00 16 /min [facility] Body height 2020-04-28 15:52:00 162.6 cm [facility] Body weight 2020-04-28 15:52:00 68.266 kg [facility] BMI 2020-04-28 15:52:00 25.83 kg/m2 [facility] Systolic blood 2020-03-31 15:19:00 97 mm[Hg] [facility] Diastolic blood 2020-03-31 15:19:00 63 mm[Hg] [facility] Heart rate 2020-03-31 15:19:00 69 /min [facility] Body temperature 2020-03-31 15:19:00 36.39 [facility] Respiratory rate 2020-03-31 15:19:00 16 /min [facility] Body height 2020-03-31 15:19:00 162.6 cm [facility] Body weight 2020-03-31 15:19:00 67.841 kg [facility] BMI 2020-03-31 15:19:00 25.67 kg/m2 [facility] Body weight 2020-02-14 18:17:00 63.504 kg [facility] BMI 2020-02-14 18:17:00 23.30 kg/m2 [facility] Systolic blood 2020-02-04 16:13:00 115 mm[Hg] [facility] Diastolic blood 2020-02-04 16:13:00 70 mm[Hg] [facility] Heart rate 2020-02-04 16:13:00 79 /min [facility] Body temperature 2020-02-04 16:13:00 36.17 [facility] Respiratory rate 2020-02-04 16:13:00 16 /min [facility] Body height 2020-02-04 16:13:00 165.1 cm [facility] Body weight 2020-02-04 16:13:00 63.645 kg [facility] BMI 2020-02-04 16:13:00 23.35 kg/m2 [facility] Systolic blood 2020-01-02 14:54:00 105 mm[Hg] Univer sity of pressure [facility] Diastolic blood 2020-01-02 14:54:00 64 mm[Hg] Unive rsity of pressure [facility] Heart rate 2020-01-02 14:54:00 83 /min [facility] Body temperature 2020-01-02 14:54:00 37 [facility] Respiratory rate 2020-01-02 14:54:00 16 /min [facility] Body height 2020-01-02 14:54:00 165.1 cm [facility] Body weight 2020-01-02 14:54:00 62.171 kg [facility] BMI 2020-01-02 14:54:00 22.81 kg/m2 [facility] Procedures Procedure Date / Time Performing Clinician Source Performed CBC WITH DIFF 2020-08-15 09:11:00 Felecia Villavicencio [facility] VENOUS CORD GAS 2020-08-15 00:55:00 Verito Davis [facility] CBC WITH DIFF 2020-08-14 10:24:00 Edel Carballo [facility] HEPATITIS B SURFACE 2020-08-14 10:24:00 Edel Carballo [facility] ANTIGEN [facility] ADC OR ISA ONLY - RPR 2020-08-14 10:24:00 Edel aCrballo Un [facility] HIV 1/2 AG-AB WITH REFLEX 2020-08-14 10:24:00 Edel Carballo Un [facility] HB ABO GROUPING 2020-08-14 10:20:00 Edel Carballo [facility] RHO (D) IMMUNE GLOBULIN 2020-08-14 10:20:00 Felecia Villavicencio [facility] COVID-19 (ID NOW RAPID 2020-08-14 09:21:00 Edel Carballo [facility] TESTING) [facility] ADC ONLY - FERN TEST 2020-08-14 09:05:00 Edel Carballo [facility] L&D VISIT (NON-DELIVERED) 2020-08-14 05:01:00 Doctor Unassigned, [facility] [place] [facility] NON-STRESS TEST 2020-08-06 19:54:52 [facility] 2020-08-06 19:06:00 Mally [facility] POCT URINALYSIS 2020-07-31 00:00:00 Mally Henry [facility] POCT URINALYSIS 2020-07-24 14:33:00 Mally Henry [facility] POCT URINALYSIS 2020-07-10 00:00:00 Mally Henry [facility] POCT URINALYSIS 2020-06-26 14:01:00 Mally Henry [facility] POCT URINALYSIS 2020-06-12 15:33:00 Mally Henry [facility] STERILIZATION CONSENT 2020-06-12 05:01:00 Doctor Unassigned, [facility] FORM [place] [facility] POCT URINALYSIS 2020-05-28 16:24:00 Mally Henry [facility] POCT URINALYSIS 2020-04-28 15:54:00 Mally Henry [facility] POCT URINALYSIS 2020-03-31 15:20:00 Mally Henry [facility] 2020-02-04 19:05:00 Mally Henry [facility] PATIENT CORRESPONDENCE 2020-02-04 05:01:00 Doctor Unassigned, [facility] [place] (LETTERS, USPS [place] [facility] DOCUMENTATION) FLU VACC ([id number]), 6+ 2020-01-02 15:11:35 Mally Henry [facility] MONTHS, IM, QUAD [facility] POCT TEST 2020-01-02 14:49:00 Mally Henry [facility] POCT URINALYSIS W/O 2020-01-02 14:49:00 Mally Henry [facility] SPECIFIC GRAVITY [facility] NOTICE OF PRIVACY 2020-01-02 14:17:14 Doctor Unassigned, [facility] PRACTICES [place] [facility] Encounters Start End Encounter Admission Attending Care Care Encounter Source Date/Time Date/Time Type Type Clinicians Facility Department ID 2021-08-14 Outpatient P [facility] AUGUSTIN [id number] [facility]54 [facility] 2021-08-14 Emergency [facility] [id number] [facility] 01:11:26 [facility] 2021-08-14 Outpatient P [facility] AUGUSTIN [id number] Univers 01:11:26 [facility] 2020-09-28 2020-09-28 Outpatient R RENEE [facility] [id number] Univers 10:30:00 10:30:00 ROSMOONNDA ity o f [facility] 2020-09-07 2020-09-07 [facility] 1.2.840.114 [id number] 10:06:40 10:21:40 Rosmoonnda R SURVEYING TECHNICIAN 350.1.13.10 Visit REGIONAL 4.2.7.2.686 MATERNAL [id number] & CHILD [address] [place] [address] 2020-09-07 2020-09-07 Routine [facility] 1.2.840.114 [id number] Univers 10:06:40 10:21:40 Roshunda R SURVEYING TECHNICIAN 350.1.13.10 ity of Visit REGIONAL 4.2.7.2.686 [place] as MATERNAL [id number] Med ical & CHILD [address] [place] [address] 2020-09-07 2020-09-07 Outpatient [facility] [id number] Univers 10:15:00 10:15:00 ROSHUNDA ity o f [facility] 2020-08-26 2020-08-26 [facility] 1.2.840.114 [id number] 00:00:00 00:00:00 Mally C SURVEYING TECHNICIAN 350.1.13.10 REGIONAL 4.2.7.2.686 MATERNAL [id number] & CHILD [address] [place] [address] 2020-08-26 2020-08-26 [facility], [facility] 1.2.840.114 [id number] Univers 00:00:00 00:00:00 Mally C SURVEYING TECHNICIAN 350.1.13.10 ity of [facility] 4.2.7.2.686 [place] as MATERNAL [id number] Med ical & CHILD [address] [place] [address] 2020-08-14 2020-08-16 [facility] Edel Carballo 1.2.840.114 [id number] [facility] 03:09:00 12:55:00 Encounter Verito LinoricardoVonnie morris 350. 1.13.10 ity of [facility] 42.7.2.686 [place] as [id number] [place] [id number] [place] 2020-08-14 2020-08-16 [facility] Edel Carballo 1.2.840.114 [id number] 03:09:00 12:55:00 Encounter Verito LinoricardoVonnie morris 350. 1.13.10 [facility] 42.7.2.686 [id number] [facility] 2020-08-14 2020-08-14 Outpatient R CARL [facility] [id number] Univers 08:00:00 08:00:00 MALLY serna o f [facility] 2020-08-14 2020-08-14 Orders Doctor HOFF 1.2.840.114 [id number] Univers 00:00:00 00:00:00 Only Unassigned, DILIP 350.1.13.10 ity of [place] [facility] 4.2.7.2.686 [place] as [id number] [facility] 009 [place] 2020-08-14 2020-08-14 Orders Doctor HOFF 1.2.840.114 [id number] 00:00:00 00:00:00 Only Unassigned, DILIP 350.1.13.10 [place] [facility] 4.2.7.2.686 [id number] 2020-08-10 2020-08-11 [facility] Jose Juan Francisco [facility] 1.2.840.114 [id number] [facility] 23:10:00 01:00:00 Encounter Jovanny 350.1.13.10 ity of [place] 4.2.7.2.686 [facility] [id number] [place] [id number] [place] 2020-08-10 2020-08-11 [facility] Juan Francisco Garcia [facility] 1.2.840.114 [id number] 23:10:00 01:00:00 Encounter [place] 350.1.13.10 [place] 4.2.7.2.686 [place] [id number] 083 2020-08-06 2020-08-06 Routine Akinsipe, [facility] 1.2.767.561 [id number] [facility] 13:48:55 14:59:03 Mally C SURVEYING TECHNICIAN 350.1.13.10 ity of Visit REGIONAL 4.2.7.2.686 [place] as MATERNAL [id number] Med ical & CHILD [address] [place] [address] 2020-08-06 2020-08-06 Routine Akinsipe, [facility] 1.2.217.613 [id number] 13:48:55 14:59:03 Mally C SURVEYING TECHNICIAN 350.1.13.10 Visit REGIONAL 4.2.7.2.686 MATERNAL [id number] & CHILD [address] [place] [address] 2020-08-06 2020-08-06 Outpatient R CARL, [facility] [id number] [facility] 14:00:00 14:00:00 MALLY ity o f [facility] 2020-08-03 2020-08-03 Telephone [facility], [facility] 1.2.840.114 [id number] [facility] 00:00:00 00:00:00 Mally C SURVEYING TECHNICIAN 350.1.13.10 ity of REGIONAL 4.2.7.2.686 [place] as MATERNAL [id number] [facility] & CHILD [address] [place] [address] 2020-08-03 2020-08-03 [facility], [facility] 1.2.840.114 [id number] 00:00:00 00:00:00 Mally C SURVEYING TECHNICIAN 350.1.13.10 REGIONAL 4.2.7.2.686 MATERNAL [id number] & CHILD [address] [place] [address] 2020-07-31 2020-07-31 Routine Akinsipe, [facility] 1.2.548.254 [id number] [facility] 12:50:31 13:29:28 Mally C SURVEYING TECHNICIAN 350.1.13.10 ity of Visit REGIONAL 4.2.7.2.686 [place] as MATERNAL [id number] [facility] ical & CHILD [address] [place] [address] 2020-07-31 2020-07-31 Outpatient R AKINSIPE, [facility] [id number] Univers 13:00:00 13:00:00 MALLY ity o f [facility] 2020-07-24 2020-07-24 Routine Akinsipe, [facility] 1.2.720.630 [id number] Univers 09:28:35 09:47:20 Mally C SURVEYING TECHNICIAN 350.1.13.10 ity of Visit REGIONAL 4.2.7.2.686 [place] as MATERNAL [id number] Med ical & CHILD [address] [place] [address] 2020-07-24 2020-07-24 Outpatient R AKINSIPE, [facility] [id number] Univers 09:30:00 09:30:00 MALLY ity o f [facility] 2020-07-22 2020-07-22 Telephone Akinsipe, [facility] 1.2.840.114 [id number] Univers 00:00:00 00:00:00 Mally C SURVEYING TECHNICIAN 350.1.13.10 ity of REGIONAL 4.2.7.2.686 [place] as MATERNAL [id number] [facility] ical & CHILD [address] [place] [address] 2020-07-10 2020-07-10 Routine Akinsipe, [facility] [id number] Univers 11:02:49 11:38:13 Mally C SURVEYING TECHNICIAN 350.1.13.10 ity of Visit REGIONAL 4.2.7.2.686 [place] as MATERNAL [id number] [facility] ical & CHILD [address] [place] [address] 2020-07-10 2020-07-10 Outpatient R AKINSIPE, [facility] [id number] Univers 11:00:00 11:00:00 MALLY ity o f [facility] 2020-06-26 2020-06-26 Routine Akinsipe, [facility] [id number] Univers 08:50:42 09:05:42 Mally C SURVEYING TECHNICIAN 350.1.13.10 ity of Visit REGIONAL 4.2.7.2.686 [place] as MATERNAL [id number] [facility] ical & CHILD [address] [place] [address] 2020-06-26 2020-06-26 Outpatient R AKINLYNPE, [facility] [id number] Univers 09:00:00 09:00:00 MALLY ordonezy o f [facility] 2020-06-16 2020-06-16 Outpatient R WINGPE, [facility] [id number] Univers 09:30:00 09:30:00 MALLY ity o f [facility] 2020-06-12 2020-06-12 Routine [facility], [facility] 1.2.515.574 [id number] Univers 09:41:23 10:59:00 Mally C SURVEYING TECHNICIAN 350.1.13.10 ity of Visit REGIONAL 4.2.7.2.686 [place] as MATERNAL [id number] [facility] & [address] 2020-06-12 2020-06-12 Outpatient R AKINLYNPE, [facility] [id number] Univers 10:30:00 10:30:00 MALLY serna o bandar [facility] 2020-06-12 2020-06-12 Outpatient R WINGPE, [facility] [id number] Univers 09:30:00 09:30:00 MALLY serna o bandar [facility] 2020-06-12 2020-06-12 Orders Doctor KAVYA 1.2.840.114 [id number] Univers 00:00:00 00:00:00 Only Unassigned, DILIP 350.1.13.10 ity of [place] [facility] 4.2.7.2.686 [place] as [id number] [address] 2020-06-11 2020-06-11 Outpatient R AKINSIPE, [facility] [id number] Univers 10:30:00 10:30:00 MALLY itjennifer o f [facility] 2020-06-01 2020-06-01 Delivery Department Supervisor Lab, Ang-Rmchp [facility] 1.2.840. 114 [id number] Univers 08:45:01 08:51:02 Visit JohnnyFord de la cruzilola C SURVEYING TECHNICIAN 350.1.13. 10 ity of REGIONAL 4.2.7.2.686 [place] as MATERNAL [id number] [facility] ical & CHILD [address] [place] [address] 2020-06-01 2020-06-01 Outpatient R AKINSIPE, [facility] [id number] Univers 08:30:00 08:30:00 MALLY ity o f [facility] 2020-05-29 2020-05-29 Outpatient R [facility] [id number] Univers 08:30:00 08:30:00 ity of [facility] 2020-05-28 2020-05-28 Routine Akinsipe, [facility] [id number] Univers 11:03:28 11:33:11 Mally C SURVEYING TECHNICIAN 350.1.13.10 ity of Visit REGIONAL 4.2.7.2.686 [place] as MATERNAL [id number] [facility] & [address] 2020-05-28 2020-05-28 Outpatient R AKINSIPE, [facility] [id number] Univers 11:00:00 11:00:00 MALLY ordonezy o f [facility] 2020-05-26 2020-05-26 Outpatient R AKINSIPE, [facility] [id number] Univers 12:45:00 12:45:00 MALLY ordonezy o [facility] 2020-04-28 2020-04-28 Routine Akinsipe, [facility] [id number] Univers 10:43:31 11:38:20 Mally C SURVEYING TECHNICIAN 350.1.13.10 ity of Visit REGIONAL 4.2.7.2.686 [place] as MATERNAL [id number] [facility] & [address] 2020-04-28 2020-04-28 Outpatient R AKINSIPE, [facility] [id number] Univers 10:45:00 10:45:00 MALLY ity o [facility] 2020-04-13 2020-04-13 Delivery Department Supervisor Ultrasound, Ang-Mfm [facility] 1.2 .840.114 [id number] Univers 08:04:15 09:19:15 Visit Jonane Nogueira SURVEYING TECHNICIAN 350.1.13.10 ity of REGIONAL 4.2.7.2.686 [place] as MATERNAL [id number] [facility] & CHILD [address] [facility] 2020-04-13 2020-04-13 Outpatient P [facility] [id number] Univers 08:00:00 08:00:00 ity of [facility] 2020-04-13 2020-04-13 Telephone [facility] 1.2.840.114 [id number] Univers 00:00:00 00:00:00 Mally C SURVEYING TECHNICIAN 350.1.13.10 ity of REGIONAL 4.2.7.2.686 [place] as MATERNAL [id number] [facility] & [address] 2020-04-13 2020-04-13 Abstract [facility] 1.2.840.114 [id number] Univers 00:00:00 00:00:00 Mally C SURVEYING TECHNICIAN 350.1.13.10 ity of REGIONAL 4.2.7.2.686 [place] as MATERNAL [id number] [address] 2020-03-31 2020-03-31 Routine [facility] 1.2.519.902 [id number] Univers 10:05:38 10:46:23 Mally C SURVEYING TECHNICIAN 350.1.13.10 ity of Visit REGIONAL 4.2.7.2.686 [place] as MATERNAL [id number] [address] 2020-03-31 2020-03-31 Outpatient R CARL [facility] [id number] Univers 10:00:00 10:00:00 MALLY serna o f [facility] 2020-03-30 2020-03-30 Telephone Olivier Jaramillo 1.2.840.11 [id number] Univers 00:00:00 00:00:00 W HEALTH 350.1.13.10 i ty of [place]2.[place] [id number] [address] 2020-03-03 2020-03-03 Delivery Department Supervisor Lab, Ang-Rmchp [facility] 1.2.840. 114 [id number] Univers 09:41:40 10:18:30 Visit Johnnydorothy Mally Schilling SURVEYING TECHNICIAN 350.1.13. 10 ity of REGIONAL 4.2.7.2.686 [place] as MATERNAL [id number] [facility] & CHILD [address] [place] [address] 2020-03-03 2020-03-03 Outpatient R CARL, [facility] [id number] Univers 10:15:00 10:15:00 MALLY burns [facility] 2020-03-02 2020-03-02 Telemedici [facility] 1.2.840.114 [id number] Univers 08:18 09:13:00 ne Visit Mally Schilling SURVEYING TECHNICIAN 350.1.13.10 ity of REGIONAL 4.2.7.2.686 [place] as MATERNAL [id number] Med ical & CHILD [address] [place] [address] 2020-03-02 2020-03-02 Outpatient R CARL, [facility] [id number] Univers 08:30:00 08:30:00 MALLY burns [facility] 2020-03-02 2020-03-02 Joseph Owen, UNIVERSIT [id number] Univers 00:00:00 00:00:00 Management [facility] [address] 350.1.13.10 ity of [place] [id number] [facility] [address] [place] 2020-02-28 2020-02-28 Outpatient R CARL, [facility] [id number] Univers 13:00:00 13:00:00 MALLY burns [facility] 2020-02-27 2020-02-27 Joseph Weaver, UN[facility]ERS[facility] 1.2.572.457 [id number] Univers 00:00:00 00:00:00 Management [facility] [address] 350.1.13.10 ity of [place] [id number] [facility] 161 [place] 2020-02-14 2020-02-14 Outpatient P [facility] [id number] Univers 10:30:00 10:30:00 ity of [facility] 2020-02-14 2020-02-14 Telemedici Estela Esposito [facility] 1.2.840.114 [id number] Univers 08:09:28 08:54:28 ne Visit ClintOlivier HEALTH 350.1.13.10 ity of [place] [id number] [facility] [address] [place] 2020-02-14 2020-02-14 Telephone [facility] 1.2.840.114 [id number] Univers 00:00:00 00:00:00 Mally Tonie SURVEYING TECHNICIAN 350.1.13.10 ity of REGIONAL 4.2.7.2.686 [place] as MATERNAL [id number] [facility] & CHILD [address] [place] [address] 2020-02-13 2020-02-13 Telephone TAM Bartlett 1.2.840.114 [id number] Univers 00:00:00 00:00:[address] [facility] 350.1.13.10 ity of [place] [id number] [facility] 104 [place] 2020-02-07 2020-02-07 Telephone [facility] 1.2.840.114 [id number] Univers 00:00:00 00:00:00 Mally Schilling SURVEYING TECHNICIAN 350.1.13.10 ity of REGIONAL 4.2.7.2.686 [place] as MATERNAL [id number] [facility] & CHILD [address] [place] [address] 2020-02-04 2020-02-04 Routine [facility] 1.2.022.972 [id number] Univers 10:45:23 11:51:13 Mally Schilling SURVEYING TECHNICIAN 350.1.13.10 ity of Visit REGIONAL 4.2.7.2.686 [place] as MATERNAL [id number] [address] 2020-02-04 2020-02-04 Outpatient R CARL [facility] [id number] Univers 11:00:00 11:00:00 MALLY ity o f [facility] 2020-02-04 2020-02-04 Orders Doctor KAVYA 1.2.840.114 [id number] Univers 00:00:00 00:00:00 Only Unassigned, DILIP 350.1.13.10 ity of [place] [facility] 4.2.7.2.686 Dale as [phone] [facility] 009 [place] 2020-01-24 2020-01-24 Telephone [facility] 1.2.286.298 [id number] Univers 00:00:00 00:00:00 Emma PRIMARY 350.1.13.10 it y of C[place].7.2.[place] JOJO [id number] Il dical [address] [place] [address] 2020-01-21 2020-01-21 Delivery Department Supervisor [facility]trasound, [facility] 1.2 .840.114 [id number] Univers 11:32:42 12:02:42 Visit Allan Last F SURVEYING TECHNICIAN 350.1.13.10 ity of REGIONAL 4.2.7.2.686 [place] as MATERNAL [id number] [facility] ical & CHILD [address] [facility] 2020-01-21 2020-01-21 Outpatient P [facility] [id number] Univers 11:30:00 11:30:00 ity of [facility] 2020-01-20 2020-01-20 Outpatient R AMY BARTLETT [facility] [id number] Univers 09:30:00 09:30:00 AMY BARTLETT [facility] 2020-01-20 2020-01-20 [facility] [id number] Univers 08:11:20 08:41:20 Amy Bartlett SURVEYING TECHNICIAN [id number] ity of Visit REGIONAL [id number] Dale as MATERNAL [phone] [facility] & [address] 2020-01-02 2020-01-02 [facility] [id number] Univers 09:46:25 10:35:48 Mally Schilling SURVEYING TECHNICIAN [id number] ity of Visit [facility] [id number] Dale as MATERNAL [phone] [facility] & CHILD [address] [place] [address] 2020-01-02 2020-01-02 Outpatient R CARL [facility] [id number] Univers 10:00:00 10:00:00 MALLY bruns [facility] 2020-01-02 2020-01-02 Orders Doctor HOFF [id number] Univers 00:00:00 00:00:00 Only Unassigned, DILIP [id number] ity of [place] [facility] [id number] [place] as [phone] [place] [address] [place] 2019-02-05 2019-02-05 Outpatient R [facility] [id number] Univers 13:30:00 13:38:17 MALLYARISTEO burns [facility] Results Test Description Test Time Test Comments [...] 31.6 g/dL 31.6-35.1 RDW-SD (test code = 00237-8) 42.4 fL 39-49.9 RDW-CV (test code = 788-0) 14.8 % 12-15.5 PLT (test code = 777-3) See_Comment [Au tomated message] The system which ge nerated this result transmit daniel reference range: 166 - 35 8 10*3/?L. The reference range was not used to interpret th is result as normal/abnormal . MPV (test code = 60731-0) 11.0 fL 9.5-12.9 NRBC/100 WBC (test code = See_Comment [ Automated message] The 0690505394) system which ge nerated this result transmit daniel reference range: 0.0 - 10 .0 /100 WBCs. The reference r carlene was not used to interpr et this result as normal/abnor mal. NRBC x10^3 (test code = <0.01 See_Comment [Au tomated message] The 5752481710) system which ge nerated this result transmit daniel reference range: 10*3/?L. The reference range was not u sed to interpret this result as normal/abnormal . GRAN MAT (NEUT) % (test code 76.2 % = 770-8) IMM GRAN % (test code = 1.30 % 2286831634) LYMPH % (test code = 736-9) 13.2 % MONO % (test code = 5905-5) 8.2 % EOS % (test code = 713-8) 0.8 % BASO % (test code = 706-2) 0.3 % GRAN MAT x10^3(ANC) (test 13.18 10*3/uL 1.88-7.09 H code = 2718303927) IMM GRAN x10^3 (test code = 0.23 10*3/uL 0-0.06 H 0470453747) LYMPH x10^3 (test code = 2.28 10*3/uL 1.32-3.29 731-0) MONO x10^3 (test code = 1.42 10*3/uL 0.33-0.92 H 742-7) EOS x10^3 (test code = 0.13 10*3/uL 0.03-0.39 711-2) BASO x10^3 (test code = 0.05 10*3/uL 0.01-0.07 704-7) Lab Interpretation (test Abnormal code = 31575-4) [facility] OR ISA ONLY - [id number] 08:55:00 Test Item Value Reference Range Interpretation Comments RPR (Qualitative) (test code = Nonreactive Nonreactive 69647-4) Lab Interpretation (test code = Normal 02660-2) [facility] IMMUNE [id number] 06:27:46 Test Item Value Reference Range Interpretation Comments RHIG CANDIDATE? No- see comment Patient i s not a (test code = candidate for R hIg- 5055) Patient is Rh Positive.Perfor med at [facility] Laboratory Services - [facility] Blood [address] [place], [place] [address]Hxau Free: [phone] A No. [id number] [facility] [id number] 01:12:00 Test Item Value Reference Range Interpretation Comments BASE EXCESS, CORD mEq/L (test code = 4679385081) AC PH, CORD (BEAKER) 7.18-7.38 (test code = 1774446997) PC02, CORD (test code See_Comment [Auto mated message] The = 8771332144) system which g enerated this result transmit daniel reference range : 32 - 66 mmHg. The refer ence range was not used to interpret this result as normal/abnormal . PO2, CORD (test code See_Comment [Autom ated message] The = 5146016065) system which g enerated this result transmit daniel reference range : 10 - 30 mmHg. The refer ence range was not used to interpret this result as normal/abnormal . BICARBONATE, CORD See_Comment [Automate d message] The (test code = system which ge nerated this 8458452628) result transmit daniel reference range : 17 - 27 mEq/L. The refe rence range was not used to interpret this result as normal/abnormal . [facility] [id number] 01:08:00 Test Item Value Reference Range Interpretation Comments VENOUS BASE EXCESS, mEq/L CORD (test code = 4977909733) VENOUS PH, CORD (test 7.25-7.45 code = 1658701863) VENOUS PC02, CORD See_Comment [Automate d message] The (test code = system which ge nerated 0223886734) this result tra nsmitted reference range : 27 - 49 mmHg. The refer ence range was not used to interpret this result as normal/abnormal . VENOUS PO2, CORD (test See_Comment [Aut omated message] The code = 3250853381) system wh ich generated this result tra nsmitted reference range : 17 - 41 mmHg. The refer ence range was not used to interpret this result as normal/abnormal . VENOUS BICARBONATE, See_Comment QUES [Au tomated message] CORD (test code = The system which generated 9900035644) this result tra nsmitted reference range : 12 - 29 mEq/L. The refe rence range was not used to interpret this result as normal/abnormal . [facility] DallasHepatitis B Surface [id number] 16:14:00 Test Item Value Reference Range Interpretation Comments HBsAg Semi-Quantitative (test code = Negative Negative 5195-3) [facility] Dallas[facility] and Screen - ONCE [id number] 12:25:45 Test Item Value Reference Range Interpretation Comments ABO & RH (test code O Positive Performe d at [facility] = 20) Laboratory Serv [facility] Blood [facility] [place], [place] [id number] Free: [phone] A No. [id number] IAT (test code = Negative Performed a t [facility] 1185) Laboratory Serv [facility] [place], [place] [address]Toll Free: [phone] A No. [id number] [facility] DallasHIV 1/2 AG-AB WITH [id number] 12:19:00 Test Item Value Reference Range Interpretation Comments HIV Negative Negative Semi-quantitative (test code = 80205-1) COLLEEN (test code = Non-reactive for HIV-1 COLLEEN) antigen and HIV-1/HIV-2 antibodies. ?No laboratory evidence of HIV infection. ?Repeat in 2-4 weeks if acute HIV infection is suspected. [facility] DallasCBC with [id number] 11:28:00 Test Item Value Reference Range Interpretation Comments WBC (test code = See_Comment H [Automated 8251-2) message] The system which generated this result transmit daniel reference range : 4.30 - 11.10 10*3/?L. The reference range was not used to interpret this result as normal/abnormal . RBC (test code = See_Comment L [Automated 889-8) message] The system which generated this result [...] RDW-SD (test code = 41.6 fL 39-49.9 68919-7) RDW-CV (test code = 14.6 % 12-15.5 788-0) PLT (test code = See_Comment [Automated 777-3) message] The system which generated this result transmit daniel reference range : 166 - 358 10*3/ ?L. The reference range was not u sed to interpret th is result as normal/abnormal . MPV (test code = 10.6 fL 9.5-12.9 41917-5) NRBC/100 WBC (test See_Comment [Automat ed code = 0215587571) message] The system which generated this result transmit daniel reference range : 0.0 - 10.0 /100 WBCs. The reference range was not used to interpret this result as normal/abnormal . NRBC x10^3 (test code <0.01 See_Comment [Auto mated = 3966291729) message] The system which generated this result transmit daniel reference range : 10*3/?L. The reference range was not used to interpret this result as normal/abnormal . GRAN MAT (NEUT) % 73.3 % (test code = 770-8) IMM GRAN % (test code 2.20 % = 4593516898) LYMPH % (test code = 15.2 % 736-9) MONO % (test code = 7.6 % 5905-5) EOS % (test code = 1.2 % 713-8) BASO % (test code = 0.5 % 706-2) GRAN MAT x10^3(ANC) 12.36 10*3/uL 1.88-7.09 H (test code = 7994389622) IMM GRAN x10^3 (test 0.37 10*3/uL 0-0.06 H code = 7644171391) LYMPH x10^3 (test code 2.57 10*3/uL 1.32-3.29 = 731-0) MONO x10^3 (test code 1.28 10*3/uL 0.33-0.92 H = 742-7) EOS x10^3 (test code = 0.20 10*3/uL 0.03-0.39 711-2) BASO x10^3 (test code 0.08 10*3/uL 0.01-0.07 H = 704-7) Lab Interpretation Abnormal (test code = 93044-3) [facility]OVID-19 (ID NOW RAPID TESTING)2020-08-14 09:59:00 Test Item Value Reference Range Interpretation Comments SARS-CoV-2 Rapid ID NOW Not Detected Not Detected (test code = 26185-1) COLLEEN (test code = COLLEEN) ID NOW COVID-19 Assay is an isothermal nucleic acid amplification test intended for the qualitative detection of nucleic acid from SARS-CoV-2 viral RNA in nasopharyngeal ([employer]OCK ASS[employer]IATE) specimens. It is used under Emergency Use [...] indicated. Lab Interpretation Normal (test code = 70549-0) [facility] ONLY - FERN [id number] 09:34:00 Test Item Value Reference Range Interpretation Comments Fern Test (test code = 2160975948) Positive [facility] DallasFETAL NON-STRESS [id number] 19:55:33NST: cat 1, reactive/reassuring, no ctx, +accels, neg decls, moderate variability [facility] DallasPODC URINALYSIS W SPECIFIC [id number] 19:06:00 Test Item Value Reference Range Interpretation [...] POCT U APPEAR (test code = 3267) [facility] URINALYSIS W SPECIFIC [id number] 18:05:00 Test Item Value Reference Range Interpretation [...] POCT U APPEAR (test code = 3267) [facility] URINALYSIS W SPECIFIC [id number] 14:33:00 Test Item Value Reference Range Interpretation [...] POCT U APPEAR (test code = 3267) [facility] URINALYSIS W SPECIFIC [id number] 16:11:00 Test Item Value Reference Range Interpretation [...] POCT U APPEAR (test code = 3267) [facility] URINALYSIS W SPECIFIC [id number] 16:11:00 Test Item Value Reference Range Interpretation [...] POCT U APPEAR (test code = 3267) [facility] URINALYSIS W SPECIFIC [id number] 16:11:00 Test Item Value Reference Range Interpretation [...] POCT U APPEAR (test code = 3267) [facility] URINALYSIS W SPECIFIC [id number] 16:11:00 Test Item Value Reference Range Interpretation [...] POCT U APPEAR (test code = 3267) [facility] URINALYSIS W SPECIFIC [id number] 14:01:00 Test Item Value Reference Range Interpretation [...] POCT U APPEAR (test code = 3267) [facility] URINALYSIS W SPECIFIC [id number] 15:33:00 Test Item Value Reference Range Interpretation [...] POCT U APPEAR (test code = 3267) [facility] URINALYSIS W SPECIFIC [id number] 15:33:00 Test Item Value Reference Range Interpretation [...] POCT U APPEAR (test code = 3267) [facility] URINALYSIS W SPECIFIC [id number] 15:33:00 Test Item Value Reference Range Interpretation [...] POCT U APPEAR (test code = 3267) [facility] URINALYSIS W SPECIFIC [id number] 16:24:00 Test Item Value Reference Range Interpretation [...] POCT U APPEAR (test code = 3267) [facility] URINALYSIS W SPECIFIC [id number] 15:54:00 Test Item Value Reference Range Interpretation [...] POCT U APPEAR (test code = 3267) [facility] URINALYSIS W SPECIFIC [id number] 15:54:00 Test Item Value Reference Range Interpretation [...] POCT U APPEAR (test code = 3267) [facility] URINALYSIS W SPECIFIC [id number] 15:54:00 Test Item Value Reference Range Interpretation [...] POCT U APPEAR (test code = 3267) [facility] URINALYSIS W SPECIFIC [id number] 15:20:00 Test Item Value Reference Range Interpretation [...] POCT U APPEAR (test code = 3267) [facility] URINALYSIS W SPECIFIC [id number] 19:05:00 Test Item Value Reference Range Interpretation [...] POCT U APPEAR (test code = 3267) [facility] URINALYSIS W SPECIFIC [id number] 19:05:00 Test Item Value Reference Range Interpretation [...] POCT U APPEAR (test code = 3267) [facility] [id number] 14:49:00 Test Item Value Reference Range Interpretation Comments POCT PREG (test code = 1605) Positive On board controls acceptable with C Yes Line (test code = 3574) POCT PREG LOT # (test code = 3575) POCT PREG TEST DATE (test code = 3576) [facility] URINALYSIS W/O SPECIFIC [id number] 14:49:00 Test Item Value Reference Range Interpretation [...] code = 3257) Neg Negative - Negative [facility]
[2022-10-02 08:54] LABS: Urine Blood Negative (Negative); Urine Glucose Negative (Negative); Urine Protein Negative (Negative); Urine Specific Gravity >=1.030 (1.005-1.030)
[2022-10-02 10:06] LABS: SARS-COV-2 RT PCR NEGATIVE (NEGATIVE)
--- NOTE | 2022-10-02 10:16 | RAD REPORT ---
EXAM DESCRIPTION: CT - Chest For Pe Angio - 10/02/2022 9:59 am CLINICAL HISTORY: chest pain, hemoptysis COMPARISON: Chest For Pe Angio dated 11/09/2016 TECHNIQUE: Dynamically enhanced 3 mm thick images of the chest were obtained during administration o f approximately 150mL Isovue 370 IV contrast. Coronal and oblique MIP reconstruction images were gene rated and reviewed. Exam utilizes a protocol to evaluate the pulmonary arterial tree. All CT scans are performed using dose optimization technique as appropriate and may include automated exposure control or mA/KV adjustment according to patient size. FINDINGS: No pulmonary emboli are identified. The aorta as imaged shows no acute or suspicious finding. No pericardial thickening or effusion. No infiltrate or mass in the lung parenchyma. No pleural effusion or pleural thickening. Minimal herminia unt of each posterior gutter was not imaged. No mediastinal or hilar suspicious masses. No chest wall masses or abnormal axillary lymphadenopathy. No acute bone finding. Scoliosis is present in the thoracic spine. IMPRESSION: No pulmonary emboli identified. No other significant or suspicious findings.
--- NOTE | 2022-10-02 10:23 | ER ---
Nurse's Notes [facility] Name: Maricel Nur Age: 27 yrs Sex: Female : 1995 Arrival Date: 10/02/2022 Time: 08:41 Bed 14 Private MD: Diagnosis: Acute pharyngitis, unspecified Presentation: 10/02 08:50 Chief complaint: Patient states: she has been having chest pain, spitting up blood, had kc6 no voice, and body aches beginning yesterday. Coronavirus screen: Vaccine status: Patient reports receiving the 2nd dose of the covid vaccine. At this time, the client does not indicate any symptoms associated with coronavirus-19. Ebola Screen: No symptoms or risks identified at this time. Initial Sepsis Screen: Does the patient meet any 2 criteria? No. Patient's initial sepsis screen is negative. Does the patient have a suspected source of infection? No. Patient's initial sepsis screen is negative. Risk Assessment: Do you want to hurt yourself or someone else? Patient reports no desire to harm self or others. Onset of symptoms was October 01, 2022. 08:50 Method Of Arrival: Ambulatory kc6 08:50 Acuity: ALEXANDER 3 kc6 Triage Assessment: 08:53 General: Appears in no apparent distress. comfortable, Behavior is calm, cooperative, kc6 appropriate for age. Pain: Complains of pain in chest Pain does not radiate. Pain currently is 8 out of 10 on a pain scale. Quality of pain is described as sharp, Pain began 1 day ago. Is continuous, Alleviated by nothing. Aggravated by taking a deep breath Also complains of shortness of breath. EENT: No signs and/or symptoms were reported regarding the EENT system. EENT:. Neuro: Roberts Agitation-Sedation Scale (RASS): 0 - Alert and Calm Level of Consciousness is awake, alert, obeys commands, Oriented to person, place, time, situation, Appropriate for age. Cardiovascular: Reports chest pain, shortness of breath, Heart tones S1 S2 present Capillary refill < 3 seconds. Respiratory: Airway is patent Trachea midline Respiratory effort is even, unlabored, Respiratory pattern is regular, symmetrical, Breath sounds are clear bilaterally. GI: Reports spitting up blood Patient currently denies diarrhea, nausea, vomiting. : No signs and/or symptoms were reported regarding the genitourinary system. Derm: No signs and/or symptoms reported regarding the dermatologic system. Skin is intact, Skin is pink, warm \T\ dry. Musculoskeletal: No signs and/or symptoms reported regarding the musculoskeletal system. Circulation, motion, and sensation intact. Capillary refill < 3 seconds, Range of motion: intact in all extremities. 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 - Social history:: Smoking status: Patient denies any tobacco usage or history of. Screenin:57 [facility] ED Fall Risk Assessment (Adult) History of falling in the last 3 months, kc6 including since admission No falls in past 3 months (0 pts) Confusion or Disorientation No (0 pts) Intoxicated or Sedated No (0 pts) Impaired Gait No (0 pts) Mobility Assist Device Used No (0 pt) Altered Elimination No (0 pt) Score/Fall Risk Level 0 - 2 = Low Risk. Abuse screen: Denies threats or abuse. Denies injuries from another. Nutritional screening: No deficits noted. Tuberculosis screening: No symptoms or risk factors identified. Assessment: 08:56 Reassessment: please see triage assessment. Pain: Complains of pain in chest Pain does kc6 not radiate. Pain currently is 8 out of 10 on a pain scale. Quality of pain is described as sharp, Pain began 1 day ago. Is continuous, Alleviated by nothing. Aggravated by taking a deep breath Also complains of shortness of breath. 09:56 Reassessment: Patient appears in no apparent distress at this time. No changes from kc6 previously documented assessment. Patient and/or family updated on plan of care and expected duration. Pain level reassessed. Patient is alert, oriented x 3, equal unlabored respirations, skin warm/dry/pink. Vital Signs: 08:50 BP 124 / 80; Pulse 77; Resp 18 S; Temp 98.6(O); Pulse Ox 100% on R/A; Weight 61.23 kg kc6 (R); Height 5 ft. 5 in. (165.10 cm) (R); Pain 8/10; 08:54 BP 124 / 80; Pulse 90; Resp 16; Temp 98.6(O); Pulse Ox 100% on R/A; Weight 61.23 kg; mm9 Height 5 ft. 5 in. (165.10 cm); 10:06 BP 119 / 81; Pulse 73; Resp 18 S; Pulse Ox 100% on R/A; kc6 08:54 Body Mass Index 22.46 (61.23 kg, 165.10 cm) mm9 ED Course: 08:41 Patient arrived in ED. rg4 08:43 Regina Hopper, BRAYAN is Primary Nurse. kc6 08:43 Clemente Justice PA is PHCP. jmm 08:43 Anali Caceres MD is Attending Physician. m 08:52 Triage completed. kc6 08:55 Patient has correct armband on for positive identification. Placed in gown. Bed in low mm9 position. Call light in reach. Warm blanket given. Pulse ox on. NIBP on. 08:58 No provider procedures requiring assistance completed. Patient maintains SpO2 kc6 saturation greater than 95% on room air. 09:19 Strep Sent. kc6 09:19 COVID-19/FLU A+B Sent. kc6 09:38 Radiology exam delayed due to IV insertion attempt and/or patient not having mw3 appropriate IV at this time. 09:40 Inserted saline lock: 22 gauge in left antecubital area, using aseptic technique. Blood kc6 collected. 10:01 CT Chest For PE Angio In Process Unspecified. EDMS 10:32 Arm band placed on. kc6 10:32 IV discontinued, intact, bleeding controlled, No redness/swelling at site. Pressure kc6 dressing applied. Administered Medications: 10:32 Drug: Decadron (dexamethasone) 10 mg Route: IM; Site: right deltoid; kc6 Medication: 10:32 VIS not applicable for this client. kc6 Outcome: 10:23 Discharge ordered by . jm 10:32 Discharged to home ambulatory, with significant other. kc6 10:32 Condition: stable 10:32 Discharge instructions given to patient, Instructed on discharge instructions, follow up and referral plans. medication usage, Demonstrated understanding of instructions, follow-up care, medications, Prescriptions given X 1. 10:33 Patient left the ED. kc6 Signatures: Dispatcher [employer] EDMS Clemente Justice PA PA jmm Garcia, Rubi rg4 Hazel Nicholson mw3 Regina Hopper RN RN kc6 Donna Fields mm9 Corrections: (The following items were deleted from the chart) 10:06 08:56 Pain: Complains of pain in chest kc6 kc6
--- NOTE | 2022-10-02 10:23 | EDPHYS ---
Physician Documentation [facility] Name: Maricel Nur Age: 27 yrs Sex: Female : 1995 Arrival Date: 10/02/2022 Time: 08:41 Bed 14 Private MD: ED Physician Anali Caceres HPI: 10/02 09:14 This 27 yrs old Female presents to ER via Ambulatory with complaints of Chest Pain, jmm Spitting Up Blood. 09:14 Onset: The symptoms/episode began/occurred gradually, 1 day(s) ago. Modifying factors: jmm The symptoms are alleviated by nothing. the symptoms are aggravated by nothing. This is a 27 year old female with a history of eulalio wai syndrome, stickler syndrome which presents to the ED with complaints of laryngitis, sore throat, cough, body aches beginning yesterday. Complains of body aches but did not take her temp. Denies vomiting. . 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 - Social history:: Smoking status: Patient denies any tobacco usage or history of. ROS: 09:14 Constitutional: Negative for fever, chills, and weight loss. jmm 09:14 Cardiovascular: Positive for chest pain. 09:14 All other systems are negative. Exam: 09:14 Constitutional: This is a well developed, well nourished patient who is awake, alert, jmm and in no acute distress. 09:14 Neck: Trachea midline, Supple Chest/axilla: Normal chest wall appearance and motion. Cardiovascular: Regular rate and rhythm. No edema appreciated Respiratory: Normal respirations, no respiratory distress appreciated Abdomen/GI: Non distended Back: Normal ROM Skin: General appearance color normal MS/ Extremity: Moves all extremities, no obvious deformities appreciated, no edema noted to the lower extremities Neuro: Awake and alert Psych: Behavior is normal, Mood is normal, Patient is cooperative and pleasant 09:14 ENT: Exam is negative for 09:14 ENT: Posterior pharynx: erythema, that is mild. Vital Signs: 08:50 BP 124 / 80; Pulse 77; Resp 18 S; Temp 98.6(O); Pulse Ox 100% on R/A; Weight 61.23 kg kc6 (R); Height 5 ft. 5 in. (165.10 cm) (R); Pain 8/10; 08:54 BP 124 / 80; Pulse 90; Resp 16; Temp 98.6(O); Pulse Ox 100% on R/A; Weight 61.23 kg; mm9 Height 5 ft. 5 in. (165.10 cm); 10:06 BP 119 / 81; Pulse 73; Resp 18 S; Pulse Ox 100% on R/A; kc6 08:54 Body Mass Index 22.46 (61.23 kg, 165.10 cm) mm9 MDM: 09:04 Patient medically screened. [facility] 10:18 Data reviewed: vital signs, nurses notes. Counseling: I had a detailed discussion with janell the patient and/or guardian regarding: the historical points, exam findings, and any diagnostic results supporting the discharge/admit diagnosis, lab results, radiology results, the need for outpatient follow up, to return to the emergency department if symptoms worsen or persist or if there are any questions or concerns that arise at home. ED course: Patient is alert and non toxic in appearance in the ED. CTA is negative. Hemoptysis most likely due to pharyngitis. Patient advised to follow up with pcp and otherwise given strict return precautions. patient understood and agrees with the plan of care. . 10/02 08:54 Order name: Urine Dipstick-Ancillary; Complete Time: 09:05 [facility] 10/02 09:00 Order name: Urine --Ancillary (enter results); Complete Time: 09:27 eb 10/02 09:05 Order name: COVID-19/FLU A+B; Complete Time: 10:09 [facility] 10/02 09:05 Order name: Strep; Complete Time: 10:01 [facility] 10/02 09:59 Order name: Throat Culture [facility] 10/02 09:19 Order name: EKG - Nurse/Tech; Complete Time: 09:19 [facility] [place] 10/02 09:29 Order name: CT Chest For PE Angio; Complete Time: 10:17 jm Administered Medications: 10:32 Drug: Decadron (dexamethasone) 10 mg Route: IM; Site: right deltoid; kc6 Disposition: 10:22 Chart complete. [facility] Disposition Summary: 10/02/22 10:23 Discharge Ordered Location: Home [facility] Condition: Stable [facility] Diagnosis - Acute pharyngitis, unspecified [facility] Followup: [facility] - With: Private Physician - When: 2 - 3 days - Reason: Recheck today's complaints, Continuance of care, Re-evaluation by your physician Discharge Instructions: - Discharge Summary Sheet [facility] - Pharyngitis [facility] Forms: - Medication Reconciliation Form [facility] - Thank You Letter [facility] - Antibiotic Education [facility] - Prescription Opioid Use [facility] Prescriptions: - Zithromax Z-Cameron 250 mg Oral Tablet - take 1 tablet by ORAL route as directed for 5 days Day 1 - take two (2) tablets [facility] one time. Day 2, 3, 4 , 5 take one (1) tablet once daily.; 6 tablet; Refills: 0, Product Selection Permitted Signatures: Dispatcher [employer] EDMS Clemente Justice PA PA jmm Campbell, Kaitlyn, RN RN kc6 Corrections: (The following items were deleted from the chart) 09:33 09:09 Chest Single View+[email or web address] ordered. [facility] EDMS
[2022-10-02] MEDS ORDERED: dexAMETHasone 10 MG/ML VIAL ONE (10:24)
[2022-10-02 10:57] VITALS: TEMP 98.6; O2SAT 100
[2022-10-02 10:59] VITALS: BP 119/81
== END 2022-10-02 10:33 | disposition home or self-care (01) ==
LOC: ER 08:38
DX: J02.9 Acute pharyngitis, unspecified (principal); R07.9 Chest pain, unspecified; R05.9 Cough, unspecified; Z20.822 Contact with and (suspected) exposure to COVID-19; Z88.8 Allergy status to other drugs, medicaments and biological substances
CPT/HCPCS: 87070; 81025; 82565; 87081; 81003; 0240U; 71275; 96372; 99284; Q9967; J1100

== ENCOUNTER 2022-11-30 22:06 | Emergency (ER) | payer OTHER ==
--- OUTSIDE RECORDS SUMMARY | 2022-11-30 22:15 | XMS REPORT | Continuity of Care Document ---
:1995 Author Organization [facility] t Address [address] [place] [address] Care Team Providers Name Role Phone MALLY HENRY Primary Care Physician Unavailable MALLY HENRY Attending Clinician Unavailable Hafsa Smart CNM Attending Clinician HAFSA SMART Attending Clinician Unavailable Provider, Flako Temp Attending Clinician Unavailable Doctor Unassigned, [place] Attending Clinician Unavailable GIANNI DURAN Attending Clinician Unavailable Gianni Pinedo Attending Clinician Carl Mally BOO Attending Clinician [phone] Edel Carballo MD Attending Clinician Verito Davis MD, Vonnie Attending Clinician [phone] Juan Francisco Garcia MD Attending Clinician Lab, AngErrolRmchp Attending Clinician Unavailable Ultrasound, Ang-Mfm Attending Clinician Unavailable Jero PEREZ, Joanne Attending Clinician Olivier Jaramillo MD Attending Clinician Owen PEREZ, Ange Attending Clinician Estela Esposito Attending Clinician Unavailable Amy Bartlett MD Attending Clinician Emma Francis Attending Clinician Unavailable Last Lemus MD Attending Clinician AMY BARTLETT Attending Clinician Unavailable AMY BARTLETT Attending Clinician Unavailable Faculty, [facility] Attending Clinician Unavailable JUAN FRANCISCO GARCIA Admitting Clinician Unavailable Edel Carballo MD Admitting Clinician Juan Francisco Garcia MD Admitting Clinician Payers Payer Name Policy Type Policy Number Effective Date Expiration Date [facility] [id number] 2020 CHOICE MEDICAID 00:00:00 MEDICAID [facility] [id number] 2019 00:00:00 Problems Condition Condition Condition Status Onset Resolution Last Treating Co mments Source Name Details Category Date Date Treatment Clinician Date Bleeding Bleeding Disease Active Unive rs after after 11-15 ity of [place] 00 Medical Branch Family Family Disease Active Univers history of history of 11-15 it y of breast breast 00:00: [place] cancer cancer 00 Medical gene gene Branch mutation mutation in first in first degree degree relative relative Family Family Disease Active Univers history of history of 11-15 it y of breast breast 00:00: [place] cancer in cancer in 00 [facility] kavon first first Branch degree degree relative relative S/P tubal S/P tubal Disease Active 2019-10 Uni vers ligation ligation - ity of 00:00: [place] 00 Medical Branch ROM ROM Disease Active 2019-10 Univers (rupture (rupture 0-30 ity of of of 00:00: [place] membranes) membranes) 00 Id dical , , Branch premature premature Obesity Obesity Disease Active 2019-10 Univers (BMI (BMI 0-30 ity of 30-39.9) 30-39.9) 00:00: [place] 00 Medical Branch Anemia of Anemia of Disease Active 2019-10 Uni vers mother in mother in 0-19 ity of , , [place] antepartum antepartum 00 Id dical Branch Heartburn Heartburn Disease Active Uni vers in in 9-11 [place] of [place] Disease Active Uni vers epistaxis epistaxis 7-14 ity of 00:00: [place] 00 Medical Branch Disease Active 2020-0 Uni vers epistaxis epistaxis 7-14 ity of 00:00: [place] 00 Medical Branch Supervisio Supervisio Disease Active 2020-0 U nivers n of n of 5-18 ity of high-risk high-risk 00:[place] [facility] Multiparit Multiparit Disease Active 2020-0 U nivers y y 5-18 ity of 00:00: [place] [address] Medical Branch History of History of Disease Active 2020-0 U nivers miscarriag miscarriag 5-18 it y of e e 00:00: [place] 00 Medical Branch Depression Depression Disease Active 2020-0 U nivers during during 4-03 [place] Generalize Generalize Disease Active 2020-0 U nivers d anxiety d anxiety 4-03 ity of disorder disorder 00:00: [place] [facility] Major Major Disease Active 2020-0 Univers depressive depressive 4-03 it y of disorder disorder 00:00: [place] [address] Medical Branch Nausea and Nausea and Disease Active 2020-0 U nivers vomiting vomiting 4-03 ity of during during 00:00: [place] 00 [facility] Rubella Rubella Disease Active 2020-0 Overview: Univ ers non-immune non-immune 3-20 Formattin ity of status, status, 00:00: g of this [place] antepartum antepartum 00 note Me dical might be Branch different from the original. Address pp Supervisio Supervisio Disease Active 2020-0 U nivers n of n of 3-19 ity of high-risk high-risk 00:[place] [facility] Contracept Contracept Disease Active 2019-0 U nivers kelle kelle 4-16 ity of management management 00:[place] 00 [facility] Disease Active 2019-0 Univers (spontaneo (spontaneo 3-01 it y of us vaginal us vaginal 00:00: [place] delivery) delivery[place] 00 [facility] Single Single Disease Active 2019-0 Univers live live 3-01 it y of 00:00: [place] [facility] 38 weeks 38 weeks Disease Active 2018- Unive rs gestation gestation 2-29 ity of of of 00:00: [place] 00 [facility] Rubella Rubella Disease Active 2018- Overview: Univ ers non-immune non-immune 04-24 Address i ty of status, status, 00:00: pp [place] antepartum antepartum 00 Me dical Branch History of History of Disease Active Overview : Univers 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 04-23 ity of 00:00: [place] 00 Medical Branch Efrain Efrain Disease Active Univers Wai's Wai's 04-23 ity of syndrome syndrome 00:00: [place] 00 Medical Branch Pain Pain Disease Active Univers pelvic pelvic 7-13 ity of 00:00: [place] [facility] Dysmenorrh Dysmenorrh Disease Active U nivers ea ea 6-24 ity of 00:00: [place] 00 Medical Branch Allergies, Adverse Reactions, Alerts Allergy Allergy Status Severity Reaction(s) Onset Inactive Treating Comm ents Source Name Type Date Date Clinician CEFPROZI DRUG Active Hives Univers L INGREDI 2-27 ity of 00:00: [place] 00 Medical Branch Cefprozi Propensi Active Hives Univer s l ty to 2-27 ity of adverse 00:00: [place] reaction 00 Medical s Branch Social History Social Habit Start Date Stop Date Quantity Comments Source ASSERTION 2019-12-06 [place] of 00:00:00 [facility] Exposure to 2022-11-05 2022-11-15 Not sure [facility] SARS-CoV-2 00:00:00 08:25:00 [facility] (event) Branch Alcohol Comment 2022-11-15 2022-11-15 rarely for cans Univ ersity of 00:00:00 00:00:00 of beer , once a [facility] dical month for wine Branch Tobacco use and 2022-11-15 2022-11-15 Smokeless tobacco Un iversity of exposure 00:00:00 00:00:00 non-user [facility] Alcohol intake 2022-11-15 2022-11-15 .14 /d [facility] 00:00:00 00:00:00 [facility] Education 2020-08-14 2020-08-14 11 [facility] 00:00:00 00:00:00 [facility] History SDOH 2020-08-14 2020-08-14 4 University o f Financial 00:00:00 00:00:00 [facility] Sex Ass[birth year] At [birth year] Universit y of 00:00:00 00:00:00 [facility] Smoking Status Start Date Stop Date Source Never smoked tobacco [facility] Medications Ordered Filled Start Stop Current Ordering Indication Dosage Frequency Signature Comments Components Source Medication Medication Date Date Medication? Clinician (SIG) Name Name metroNIDAZO 2022- Yes [id number] 500mg Take 1 Univers LE 500 mg 2-10 tablet by ity of tablet 00:00: 05:59 mouth in [place] 00 :00 the Medical morning Branch and 1 tablet in the evening. Do all this for 7 days. PARoxetine Yes [id number] 40mg Take 40 mg Univers 40 mg 1-31 by mouth ity of tablet 08:46: in the [place] [address] morning. Medical Branch PARoxetine Yes [id number] 40mg Take 40 mg Univers 40 mg 1-31 by mouth ity of tablet 08:46: in the [place] [address] morning. Medical Branch PARoxetine Yes [id number] 40mg Take 40 mg Univers 40 mg 1-31 by mouth ity of tablet 08:46: in the [place] [address] morning. Medical Branch amoxicillin 2022- No 1{capsu Take 1 Univers 500 mg 10-26 le} capsule by ity of capsule 00:00: 00:00 mouth in [place] 00 :00 the Medical morning. Branch amoxicillin 2022- No 1{capsu Take 1 Univers 500 mg 10-26 le} capsule by ity of capsule 00:00: 00:00 mouth in [place] 00 :00 the Medical morning. Branch acetaminoph 2019-10 Yes [id number] 650mg Take 2 Univers en 325 mg 1-02 tablets by ity of tablet 00:00: mouth [place] 00 every 6 Medical (six) Branch hours as needed for Pain (scale 1-3). docusate 2019-10 Yes [id number] 240mg Take 1 U nivers calcium 240 1-02 capsule by it y of mg capsule 00:00: mouth [place] 00 daily as Medical needed for Branch Constipati on. 2019-10 Yes [id number] 1{tbl} Take 1 Univers vitamin 1-02 tablet by ity of w/FA tablet 00:00: mouth [place] 00 daily. Medical Branch ibuprofen 2019-10 Yes [id number] 600mg Take 1 Univers 600 mg 1-02 tablet by ity of tablet 00:00: mouth [place] 00 every 6 Medical (six) Branch hours as needed for Pain (scale 4-6). 2019-10 Yes [id number] 1{tbl} Take 1 Univers vitamin 1-02 tablet by ity of w/FA tablet 00:00: mouth [place] 00 daily. Medical Branch acetaminoph 2019-10 Yes [id number] 650mg Take 2 Univers en 325 mg 1-02 tablets by ity of tablet 00:00: mouth [place] 00 every 6 Medical (six) Branch hours as needed for Pain (scale 1-3). docusate 2019-10 Yes [id number] 240mg Take 1 U nivers calcium 240 1-02 capsule by it y of mg capsule 00:00: mouth [place] 00 daily as Medical needed for Branch Constipati on. 2019-10 Yes [id number] 1{tbl} Take 1 Univers vitamin 1-02 tablet by ity of w/FA tablet 00:00: mouth [place] 00 daily. Medical Branch ibuprofen 2019-10 Yes [id number] 600mg Take 1 Univers 600 mg 1-02 tablet by ity of tablet 00:00: mouth [place] 00 every 6 Medical (six) Branch hours as needed for Pain (scale 4-6). acetaminoph 2019-10 Yes [id number] 650mg Take 2 Univers en 325 mg 1-02 tablets by ity of tablet 00:00: mouth [place] 00 every 6 Medical (six) Branch hours as needed for Pain (scale 1-3). docusate 2019-10 Yes [id number] 240mg Take 1 U nivers calcium 240 1-02 capsule by it y of mg capsule 00:00: mouth once [place] 00 daily as Medical needed for Branch Constipati on. 2019-10 Yes [id number] 1{tbl} Take 1 Univers vitamin 1-02 tablet by ity of w/FA tablet 00:00: mouth [place] 00 daily. Medical Branch ibuprofen 2019-10 Yes [id number] 600mg Take 1 Univers 600 mg 1-02 tablet by ity of tablet 00:00: mouth [place] 00 every 6 Medical (six) Branch hours as needed for Pain (scale 4-6). acetaminoph 2019-10 Yes [id number] 650mg Take 2 Univers en 325 mg 1-02 tablets by ity of tablet 00:00: mouth [place] 00 every 6 Medical (six) Branch hours as needed for Pain (scale 1-3). docusate 2019-10 Yes [id number] 240mg Take 1 U nivers calcium 240 1-02 capsule by it y of mg capsule 00:00: mouth [place] 00 daily as Medical needed for Branch Constipati on. 2019-10 Yes [id number] 1{tbl} Take 1 Univers vitamin 1-02 tablet by ity of w/FA tablet 00:00: mouth [place] 00 daily. Medical Branch ibuprofen 2019-10 Yes [id number] 600mg Take 1 Univers 600 mg 1-02 tablet by ity of tablet 00:00: mouth [place] 00 every 6 Medical (six) Branch hours as needed for Pain (scale 4-6). acetaminoph 2019-10- No [id number] 650mg Take 2 Univers en 325 mg -11 16-31 tablets by ity of tablet 00:00: 00:00 mouth [place] 00 :00 every 6 Medical (six) Branch hours as needed for Pain (scale 1-3). docusate 2019-10- No [id number] 240mg Take 1 Univers calcium 240 -11 16- capsule by i ty of mg capsule 00:00: 00:00 mouth once [place] 00 :00 daily as Medical needed for Branch Constipati on. 2019-10- No [id number] 1{tbl} Take 1 Univers vitamin 1-02 -31 tablet by ity of w/FA tablet 00:00: 00:00 [place] :[place] daily. Medical Branch ibuprofen 2019-10- No [id number] 600mg Take 1 Univers 600 mg -02 -31 tablet by ity of tablet 00:00: 00:00 mouth [place] 00 :00 every 6 Medical (six) Branch hours as needed for Pain (scale 4-6). acetaminoph 2019-10- No [id number] 650mg Take 2 Univers en 325 mg 1-02 -31 tablets by ity of tablet 00:00: 00:00 mouth [place] 00 :00 every 6 Medical (six) Branch hours as needed for Pain (scale 1-3). docusate 2019-10- No [id number] 240mg Take 1 Univers calcium 240 10-17 capsule by i ty of mg capsule 00:00: 00:00 mouth once [place] 00 :00 daily as Medical needed for Branch Constipati on. 2019-10- No [id number] 1{tbl} Take 1 Univers vitamin 10-17 tablet by ity of w/FA tablet 00:00: 00:00 [place] 00 :00 daily. Medical Branch ibuprofen 2019-10- No [id number] 600mg Take 1 Univers 600 mg 10-17 tablet by ity of tablet 00:00: 00:00 mouth [place] 00 :00 every 6 Medical (six) Branch hours as needed for Pain (scale 4-6). measles, 2019-10- No .5mL 0.5 mL, Unive rs mumps + 10-16 Subcutaneo ity o f rubella vac 18:00: 16:57 us, ONCE, [place] (M-M-R II) 00 :00 1 dose, Medica l 1,000-12,50 Sun Branch 0 08/16/20 at TCID50/0.5 1200, mL Routine injection 0.5 mL ferrous 2019-10 Yes [id number] 325mg Take 1 Un clayton sulfate 325 10-16 tablet by ity of mg (65 mg 00:00: mouth 2 [place] iron) 00 (two) Medical tablet times Branch daily. docusate 2019-10 Yes [id number] 240mg Take 1 U nivers calcium 240 10-16 capsule by it y of mg capsule 00:00: mouth [place] 00 daily as Medical needed for Branch Constipati on. ibuprofen 2019-10 Yes [id number] 600mg Take 1 Univers 600 mg 10-16 tablet by ity of tablet 00:00: mouth [place] 00 every 6 Medical (six) Branch hours as needed for Pain (scale 4-6). 2019-10 Yes [id number] 1{tbl} Take 1 Univers vitamin -01 tablet by ity of w/FA tablet 00:00: mouth [place] 00 daily. Medical Branch docusate 2019-10 Yes [id number] 240mg Take 1 U nivers calcium 240 - capsule by it y of mg capsule 00:00: mouth once [place] 00 daily as Medical needed for Branch Constipati on. ferrous 2019-10 Yes [id number] 325mg Take 1 Un clay[place] sulfate 325 -01 tablet by ity of mg (65 mg 00:00: mouth 2 [place] iron) 00 (two) Medical tablet times Branch daily. ibuprofen 2019-10 Yes [id number] 600mg Take 1 Univers 600 mg -01 tablet by ity of tablet 00:00: mouth [place] 00 every 6 Medical (six) Branch hours as needed (Pain). Take with food or milk. ferrous 2019-10 Yes [id number] 325mg Take 1 Un clay[place] sulfate 325 -01 tablet by ity of mg (65 mg 00:00: mouth 2 [place] iron) 00 (two) Medical tablet times Branch daily. ferrous 2019-10 Yes [id number] 325mg Take 1 Un clay[place] sulfate 325 -01 tablet by ity of mg (65 mg 00:00: mouth 2 [place] iron) 00 (two) Medical tablet times Branch daily. ferrous 2019-10 Yes [id number] 325mg Take 1 Un clay[place] sulfate 325 - tablet by ity of mg (65 mg 00:00: mouth 2 [place] iron) 00 (two) Medical tablet times Branch daily. ferrous 2019-10- No [id number] 325mg Take 1 U nivers sulfate 325 10-16 tablet by it y of mg (65 mg 00:00: 00:00 mouth 2 [place] iron) 00 :00 (two) Medical tablet times Branch daily. ferrous 2019-10- No [id number] 325mg Take 1 U nivers sulfate 325 10-16 tablet by it y of mg (65 mg 00:00: 00:00 mouth 2 [place] iron) 00 :00 (two) Medical tablet times Branch daily. acetaminoph 2019-10- No [id number] 650mg Take 2 Univers en 325 mg 10-16 tablets by ity of tablet 00:00: 04:59 mouth [place] 00 :00 every 6 Medical (six) Branch hours as needed for Pain (scale 1-3). measles, 2019-10- No [id number] .5mL inject 0.5 Univers mumps + 10-16 mL under ity of rubella vac 00:00: 05:59 the skin [place] 1,000-12,50 00 :00 once now Medi kavon 0 for 1 Branch TCID50/0.5 dose. mL injection HYDROcodone 2019-10 Yes 2{tbl} 2 tablet, Univers -acetaminop 0- Oral, ity of hen (NORCO 14:50: Q6HPRN, [...] of lana acid 13:15: 13:32 ONCE, 1 [place] (BICITRA) 00 :00 dose, Sat Medic al [...] 0 Piggyback, ity of sod.chlr 03:12: Q6HPRN, [place] (BENADRYL) 19 Starting Medic al 25 mg/50 mL Fri Branch piggyback 08/14/20 25 mg at 2212, Until Discontinu ed, 50 mL ondansetron 2019-10 Yes 4mg 4 mg, Slow Univers (ZOFRAN 0-31 IV Push, ity of (PF)) 03:12: Q8HPRN, [place] injection 4 19 Starting Medi kavon mg [...] tablet 25 18 Starting Medica l mg Mon Branch 08/14/20 at 2211, Until Discontinu ed, [...] 1255, Until Mon08/14/20 at 1331, Routine terbutaline 2019-10 No .25mg [...] No 25mg 25 mg, IV Univers e 0-31 Piggyback, ity of (PHENERGAN) 09:58: 03:12 Q4HPRN, [place] 25 mg in 29 :25 Starting Medical NaCl 0.9% Fri Branch (NS) 50 mL 08/14/20 piggyback at 0458, Until Mon08/14/20 at 2212, 50 mL FENTanyl PF 2019-10- No 100ug 100 mcg, Univers (SUBLIMAZE 0-14 08-31 Slow IV ity o f (PF)) 09:58: 03:12 Push, [place] injection 14 :25 Q1HPRN, Medical 100 mcg Starting Branch 08/14/20 at 0458, Until Mon08/14/20 at 2212, Routine, Pain (scale 4-6), Pain (scale 7-10) LR 1000 mL 2019- 2020- No 2mU/min at 6-120 Univers + oxytocin 0-30 10-31 mL/hr, IV ity of 20 units IV 09:45: 03:12 Infusion, [place] Solution 00 :25 TITRATE, Medical Starting Branch Mon08/14/20 at 0445, Until Mon08/14/20 at 2212, VEENA ascorbic 2019-10 Yes [id number] 500mg Take 1 U nivers acid, 0-19 tablet by ity of vitamin C, 00:00: mouth 3 [place] 500 mg 00 (three) Medical tablet times Branch daily. ferrous 2019-10 Yes [id number] 325mg Take 1 Un clay[place] sulfate 325 0-19 tablet by ity of mg (65 mg 00:00: mouth 2 [place] iron) 00 (two) Medical tablet times Branch daily. ascorbic 2019-10 Yes [id number] 500mg Take 1 U nivers acid, 0-19 tablet by ity of vitamin C, 00:00: mouth 3 [place] 500 mg 00 (three) Medical tablet times Branch daily. ferrous 2019-10 Yes [id number] 325mg Take 1 Un clay[place] sulfate 325 0-19 tablet by ity of mg (65 mg 00:00: mouth 2 [place] iron) 00 (two) Medical tablet times Branch daily. ascorbic 2019-10 Yes [id number] 500mg Take 1 U nivers acid, 0-19 tablet by ity of vitamin C, 00:00: mouth 3 [place] 500 mg 00 (three) Medical tablet times Branch daily. ferrous 2019-10 Yes [id number] 325mg Take 1 Un clay[place] sulfate 325 0-19 tablet by ity of mg (65 mg 00:00: mouth 2 [place] iron) 00 (two) Medical tablet times Branch daily. ascorbic 2019-10 Yes [id number] 500mg Take 1 U nivers acid, 0-19 tablet by ity of vitamin C, 00:00: mouth 3 [place] 500 mg 00 (three) Medical tablet times Branch daily. ferrous 2019-10 Yes [id number] 325mg Take 1 Un clay[place] sulfate 325 0-19 tablet by ity of mg (65 mg 00:00: mouth 2 [place] iron) 00 (two) Medical tablet times Branch daily. ascorbic 2019- Yes [id number] 500mg Take 1 U nivers acid, 0-19 tablet by ity of vitamin C, 00:00: mouth 3 [place] 500 mg 00 (three) Medical tablet times Branch daily. ferrous 2020- Yes [id number] 325mg Take 1 Un clay[place] sulfate 325 0-19 tablet by ity of mg (65 mg 00:00: mouth 2 [place] iron) 00 (two) Medical tablet times Branch daily. ascorbic 2019-10 2020- No [id number] 500mg Take 1 Univers acid, 0-19 - tablet by ity of vitamin C, 00:00: 00:00 mouth 3 [place] 500 mg 00 :00 (three) Medical tablet times Branch daily. ferrous 2019- 2020- No [id number] 325mg Take 1 U nivers sulfate 325 0-19 - tablet by it y of mg (65 mg 00:00: 00:00 mouth 2 [place] iron) 00 :00 (two) Medical tablet times Branch daily. SERTraline 2019-0 Yes [id number] 50mg Take 1 U nivers (ZOLOFT) 50 4-06 tablet by ity of mg tablet 00:00: mouth [place] 00 daily. Medical Branch SERTraline 2019-0 Yes [id number] 50mg Take 1 U nivers (ZOLOFT) 50 4-06 tablet by ity of mg tablet 00:00: mouth [place] 00 daily. Medical Branch SERTraline 2019-0 Yes [id number] 50mg Take 1 U nivers (ZOLOFT) 50 4-06 tablet by ity of mg tablet 00:00: mouth [place] 00 daily. Medical Branch SERTraline 2019-0 Yes [id number] 50mg Take 1 U nivers (ZOLOFT) 50 4-06 tablet by ity of mg tablet 00:00: mouth [place] 00 daily. Medical Branch SERTraline 2019-0 Yes [id number] 50mg Take 1 U nivers (ZOLOFT) 50 4-06 tablet by ity of mg tablet 00:00: mouth [place] 00 daily. Medical Branch SERTraline 2019-0 Yes [id number] 50mg Take 1 U nivers (ZOLOFT) 50 4-06 tablet by ity of mg tablet 00:00: mouth [place] 00 daily. Medical Branch SERTraline 2019-0 Yes [id number] 50mg Take 1 U nivers (ZOLOFT) 50 4-06 tablet by ity of mg tablet 00:00: mouth [place] 00 daily. Medical Branch SERTraline 2020-0 Yes [id number] 50mg Take 1 U nivers (ZOLOFT) 50 4-06 tablet by ity of mg tablet 00:00: mouth [place] 00 daily. Medical Branch SERTraline 2020-0 Yes [id number] 50mg Take 1 U nivers (ZOLOFT) 50 4-06 tablet by ity of mg tablet 00:00: mouth [place] 00 daily. Medical Branch SERTraline 2020-0 Yes [id number] 50mg Take 1 U nivers (ZOLOFT) 50 4-06 tablet by ity of mg tablet 00:00: mouth [place] 00 daily. Medical Branch SERTraline 2019-0 Yes [id number] 50mg Take 1 U nivers (ZOLOFT) 50 4-06 tablet by ity of mg tablet 00:00: mouth [place] 00 daily. Medical Branch SERTraline 2020-0 Yes [id number] 50mg Take 1 U nivers (ZOLOFT) 50 4-06 tablet by ity of mg tablet 00:00: mouth [place] 00 daily. Medical Branch SERTraline 2019-0 Yes [id number] 50mg Take 1 U nivers (ZOLOFT) 50 4-06 tablet by ity of mg tablet 00:00: mouth [place] 00 daily. Medical Branch SERTraline 2020-0 Yes [id number] 50mg Take 1 U nivers (ZOLOFT) 50 4-06 tablet by ity of mg tablet 00:00: mouth [place] 00 daily. Medical Branch SERTraline 2020-0 Yes [id number] 50mg Take 1 U nivers (ZOLOFT) 50 4-06 tablet by ity of mg tablet 00:00: mouth [place] 00 daily. Medical Branch SERTraline 2020-0 Yes [id number] 50mg Take 1 U nivers (ZOLOFT) 50 4-06 tablet by ity of mg tablet 00:00: mouth [place] 00 daily. Medical Branch SERTraline 2020-0 Yes [id number] 50mg Take 1 U nivers (ZOLOFT) 50 4-06 tablet by ity of mg tablet 00:00: mouth [place] 00 daily. [facility] Branch SERTraline 2020-0 Yes [id number] 50mg Take 1 U nivers (ZOLOFT) 50 4-06 tablet by ity of mg tablet 00:00: mouth [place] 00 daily. Medical Branch SERTraline 2020-0 Yes [id number] 50mg Take 1 U nivers (ZOLOFT) 50 4-06 tablet by ity of mg tablet 00:00: mouth [place] 00 daily. Medical Branch SERTraline 2020-0 Yes [id number] 50mg Take 1 U nivers (ZOLOFT) 50 4-06 tablet by ity of mg tablet 00:00: mouth [place] 00 daily. Medical Branch SERTraline 2020-0 Yes [id number] 50mg Take 1 U nivers (ZOLOFT) 50 4-06 tablet by ity of mg tablet 00:00: mouth [place] 00 daily. Medical Branch SERTraline 2019-0 Yes [id number] 50mg Take 1 U nivers (ZOLOFT) 50 4-06 tablet by ity of mg tablet 00:00: mouth [place] 00 daily. Medical Branch SERTraline 2019-0 Yes [id number] 50mg Take 1 U nivers (ZOLOFT) 50 4-06 tablet by ity of mg tablet 00:00: mouth [place] 00 daily. Medical Branch SERTraline 2020-0 Yes [id number] 50mg Take 1 U nivers (ZOLOFT) 50 4-06 tablet by ity of mg tablet 00:00: mouth [place] 00 daily. Medical Branch SERTraline 2020-0 Yes [id number] 50mg Take 1 U nivers (ZOLOFT) 50 4-06 tablet by ity of mg tablet 00:00: mouth [place] 00 daily. Medical Branch SERTraline 2020-0 Yes [id number] 50mg Take 1 U nivers (ZOLOFT) 50 4-06 tablet by ity of mg tablet 00:00: mouth [place] 00 daily. Medical Branch SERTraline 2020-0 Yes [id number] 50mg Take 1 U nivers (ZOLOFT) 50 4-06 tablet by ity of mg tablet 00:00: mouth [place] 00 daily. Medical Branch SERTraline 2020-0 Yes [id number] 50mg Take 1 U nivers (ZOLOFT) 50 4-06 tablet by ity of mg tablet 00:00: mouth [place] 00 daily. [facility] Branch SERTraline 2020-0 Yes [id number] 50mg Take 1 U nivers (ZOLOFT) 50 4-06 tablet by ity of mg tablet 00:00: mouth [place] 00 daily. Medical Branch SERTraline 2020-0 Yes [id number] 50mg Take 1 U nivers (ZOLOFT) 50 4-06 tablet by ity of mg tablet 00:00: mouth [place] 00 daily. Medical Branch SERTraline 2020-0 Yes [id number] 50mg Take 1 U nivers (ZOLOFT) 50 4-06 tablet by ity of mg tablet 00:00: mouth [place] 00 daily. Medical Branch SERTraline 2020-0 Yes [id number] 50mg Take 1 U nivers (ZOLOFT) 50 4-06 tablet by ity of mg tablet 00:00: mouth [place] 00 daily. Medical Branch SERTraline 2019-0 Yes [id number] 50mg Take 1 U nivers (ZOLOFT) 50 4-06 tablet by ity of mg tablet 00:00: mouth [place] 00 daily. Medical Branch SERTraline 2019-0 Yes [id number] 50mg Take 1 U nivers (ZOLOFT) 50 4-06 tablet by ity of mg tablet 00:00: mouth [place] 00 daily. Medical Branch SERTraline 2019-0 Yes [id number] 50mg Take 1 U nivers (ZOLOFT) 50 4-06 tablet by ity of mg tablet 00:00: mouth [place] 00 daily. Medical Branch SERTraline 2019-0 Yes [id number] 50mg Take 1 U nivers (ZOLOFT) 50 4-06 tablet by ity of mg tablet 00:00: mouth [place] 00 daily. Medical Branch SERTraline 2019-0 Yes [id number] 50mg Take 1 [facility] nivers (ZOLOFT) 50 4-06 tablet by ity of mg tablet 00:00: mouth [place] 00 daily. Medical Branch SERTraline 2019-0 Yes [id number] 50mg Take 1 [facility] (ZOLOFT) 50 4-06 tablet by ity of mg tablet 00:00: mouth [place] 00 daily. Medical Branch SERTraline 2020-0 Yes [id number] 50mg Take 1 [facility]ivers (ZOLOFT) 50 4-06 tablet by ity of mg tablet 00:00: mouth [place] 00 daily. [facility] Branch SERTraline 2020-0 Yes [id number] 50mg Take 1 [facility]ivers (ZOLOFT) 50 4-06 tablet by ity of mg tablet 00:00: mouth [place] 00 daily. [facility] Branch SERTraline 2020-0 Yes [id number] 50mg Take 1 [facility]ivers (ZOLOFT) 50 4-06 tablet by ity of mg tablet 00:00: mouth [place] 00 daily. Medical Branch SERTraline 2019-0 Yes [id number] 50mg Take 1 [facility]ivers (ZOLOFT) 50 4-06 tablet by ity of mg tablet 00:00: mouth [place] 00 daily. [facility] Branch SERTraline 2019-0 Yes [id number] 50mg Take 1 [facility]ivers (ZOLOFT) 50 4-06 tablet by ity of mg tablet 00:00: mouth [place] 00 daily. [facility] Branch SERTraline 0 Yes [id number] 50mg Take 1 [facility]ivers (ZOLOFT) 50 4-06 tablet by ity of mg tablet 00:00: mouth [place] 00 daily. [facility] Branch SERTraline Yes [id number] 50mg Take 1 [facility]ivers (ZOLOFT) 50 4-06 tablet by ity of mg tablet 00:00: mouth [place] 00 daily. [facility] Branch SERTraline 0 Yes [id number] 50mg Take 1 [facility] nivers (ZOLOFT) 50 4-06 tablet by ity of mg tablet 00:00: mouth [place] 00 daily. [facility] Branch SERTraline 0 Yes [id number] 50mg Take 1 [facility]ivers (ZOLOFT) 50 4-06 tablet by ity of mg tablet 00:00: mouth [place] 00 daily. [facility] Branch SERTraline 0 Yes [id number] 50mg Take 1 [facility] nivers (ZOLOFT) 50 4-06 tablet by ity of mg tablet 00:00: mouth [place] 00 daily. [facility] Branch SERTraline 0 Yes [id number] 50mg Take 1 [facility] nivers (ZOLOFT) 50 4-06 tablet by ity of mg tablet 00:00: mouth [place] 00 daily. [facility] Branch SERTraline 0 2022- No [id number] 50mg Take 1 Univers (ZOLOFT) 50 4-03 16-31 tablet by it y of mg tablet 00:00: 00:00 mouth [place] 00 :00 daily. [facility] Branch SERTraline 0 2022- No [id number] 50mg Take 1 Univers (ZOLOFT) 50 4-06 -31 tablet by it y of mg tablet 00:00: 00:00 mouth [place] 00 :00 daily. [facility] Branch proMETHazin 2019-0 Yes [id number] 25mg Take 1 Univers e 25 mg 3-19 tablet by ity of tablet 00:00: mouth [place] 00 every 6 Medical (six) Branch hours as needed for Nausea and Vomiting (N/V). proMETHazin 2020-0 Yes [id number] 25mg Take 1 Univers e 25 mg 3-19 tablet by ity of tablet 00:00: mouth [place] 00 every 6 Medical (six) Branch hours as needed for Nausea and Vomiting (N/V). proMETHazin 2020-0 Yes [id number] 25mg Take 1 Univers e 25 mg 3-19 tablet by ity of tablet 00:00: mouth [place] 00 every 6 Medical (six) Branch hours as needed for Nausea and Vomiting (N/V). proMETHazin 2020-0 Yes [id number] 25mg Take 1 Univers e 25 mg 3-19 tablet by ity of tablet 00:00: mouth [place] 00 every 6 Medical (six) Branch hours as needed for Nausea and Vomiting (N/V). proMETHazin 2020-0 Yes [id number] 25mg Take 1 Univers e 25 mg 3-19 tablet by ity of tablet 00:00: mouth [place] 00 every 6 Medical (six) Branch hours as needed for Nausea and Vomiting (N/V). proMETHazin 2020-0 Yes [id number] 25mg Take 1 Univers e 25 mg 3-19 tablet by ity of tablet 00:00: mouth [place] 00 every 6 Medical (six) Branch hours as needed for Nausea and Vomiting (N/V). proMETHazin 2020-0 Yes [id number] 25mg Take 1 Univers e 25 mg 3-19 tablet by ity of tablet 00:00: mouth [place] 00 every 6 Medical (six) Branch hours as needed for Nausea and Vomiting (N/V). proMETHazin 2020-0 Yes [id number] 25mg Take 1 Univers e 25 mg 3-19 tablet by ity of tablet 00:00: mouth [place] 00 every 6 Medical (six) Branch hours as needed for Nausea and Vomiting (N/V). proMETHazin 2020-0 Yes [id number] 25mg Take 1 Univers e 25 mg 3-19 tablet by ity of tablet 00:00: mouth [place] 00 every 6 Medical (six) Branch hours as needed for Nausea and Vomiting (N/V). proMETHazin 2020-0 Yes [id number] 25mg Take 1 Univers e 25 mg 3-19 tablet by ity of tablet 00:00: mouth [place] 00 every 6 Medical (six) Branch hours as needed for Nausea and Vomiting (N/V). proMETHazin 2020-0 Yes [id number] 25mg Take 1 Univers e 25 mg 3-19 tablet by ity of tablet 00:00: mouth [place] 00 every 6 Medical (six) Branch hours as needed for Nausea and Vomiting (N/V). proMETHazin 2020-0 Yes [id number] 25mg Take 1 Univers e 25 mg 3-19 tablet by ity of tablet 00:00: mouth [place] 00 every 6 Medical (six) Branch hours as needed for Nausea and Vomiting (N/V). proMETHazin 2020-0 Yes [id number] 25mg Take 1 Univers e 25 mg 3-19 tablet by ity of tablet 00:00: mouth [place] 00 every 6 Medical (six) Branch hours as needed for Nausea and Vomiting (N/V). proMETHazin 2020-0 Yes [id number] 25mg Take 1 Univers e 25 mg 3-19 tablet by ity of tablet 00:00: mouth [place] 00 every 6 Medical (six) Branch hours as needed for Nausea and Vomiting (N/V). proMETHazin 2020-0 Yes [id number] 25mg Take 1 Univers e 25 mg 3-19 tablet by ity of tablet 00:00: mouth [place] 00 every 6 Medical (six) Branch hours as needed for Nausea and Vomiting (N/V). proMETHazin 2020-0 Yes [id number] 25mg Take 1 Univers e 25 mg 3-19 tablet by ity of tablet 00:00: mouth [place] 00 every 6 Medical (six) Branch hours as needed for Nausea and Vomiting (N/V). proMETHazin 2020-0 Yes [id number] 25mg Take 1 Univers e 25 mg 3-19 tablet by ity of tablet 00:00: mouth [place] 00 every 6 Medical (six) Branch hours as needed for Nausea and Vomiting (N/V). proMETHazin 2020-0 Yes [id number] 25mg Take 1 Univers e 25 mg 3-19 tablet by ity of tablet 00:00: mouth [place] 00 every 6 Medical (six) Branch hours as needed for Nausea and Vomiting (N/V). proMETHazin 2020-0 Yes [id number] 25mg Take 1 Univers e 25 mg 3-19 tablet by ity of tablet 00:00: mouth [place] 00 every 6 Medical (six) Branch hours as needed for Nausea and Vomiting (N/V). proMETHazin 2020-0 Yes [id number] 25mg Take 1 Univers e 25 mg 3-19 tablet by ity of tablet 00:00: mouth [place] 00 every 6 Medical (six) Branch hours as needed for Nausea and Vomiting (N/V). proMETHazin 2020-0 Yes [id number] 25mg Take 1 Univers e 25 mg 3-19 tablet by ity of tablet 00:00: mouth [place] 00 every 6 Medical (six) Branch hours as needed for Nausea and Vomiting (N/V). proMETHazin 2020-0 Yes [id number] 25mg Take 1 Univers e 25 mg 3-19 tablet by ity of tablet 00:00: mouth [place] 00 every 6 Medical (six) Branch hours as needed for Nausea and Vomiting (N/V). proMETHazin 2020-0 Yes [id number] 25mg Take 1 Univers e 25 mg 3-19 tablet by ity of tablet 00:00: mouth [place] 00 every 6 Medical (six) Branch hours as needed for Nausea and Vomiting (N/V). proMETHazin 2020-0 Yes [id number] 25mg Take 1 Univers e 25 mg 3-19 tablet by ity of tablet 00:00: mouth [place] 00 every 6 Medical (six) Branch hours as needed for Nausea and Vomiting (N/V). proMETHazin 2020-0 Yes [id number] 25mg Take 1 Univers e 25 mg 3-19 tablet by ity of tablet 00:00: mouth [place] 00 every 6 Medical (six) Branch hours as needed for Nausea and Vomiting (N/V). proMETHazin 2020-0 Yes [id number] 25mg Take 1 Univers e 25 mg 3-19 tablet by ity of tablet 00:00: mouth [place] 00 every 6 Medical (six) Branch hours as needed for Nausea and Vomiting (N/V). proMETHazin 2020-0 Yes [id number] 25mg Take 1 Univers e 25 mg 3-19 tablet by ity of tablet 00:00: mouth [place] 00 every 6 Medical (six) Branch hours as needed for Nausea and Vomiting (N/V). proMETHazin 2020-0 Yes [id number] 25mg Take 1 Univers e 25 mg 3-19 tablet by ity of tablet 00:00: mouth [place] 00 every 6 Medical (six) Branch hours as needed for Nausea and Vomiting (N/V). proMETHazin 2020-0 Yes [id number] 25mg Take 1 Univers e 25 mg 3-19 tablet by ity of tablet 00:00: mouth [place] 00 every 6 Medical (six) Branch hours as needed for Nausea and Vomiting (N/V). proMETHazin 2020-0 Yes [id number] 25mg Take 1 Univers e 25 mg 3-19 tablet by ity of tablet 00:00: mouth [place] 00 every 6 Medical (six) Branch hours as needed for Nausea and Vomiting (N/V). proMETHazin 2020-0 Yes [id number] 25mg Take 1 Univers e 25 mg 3-19 tablet by ity of tablet 00:00: mouth [place] 00 every 6 Medical (six) Branch hours as needed for Nausea and Vomiting (N/V). proMETHazin 2020-0 Yes [id number] 25mg Take 1 Univers e 25 mg 3-19 tablet by ity of tablet 00:00: mouth [place] 00 every 6 Medical (six) Branch hours as needed for Nausea and Vomiting (N/V). proMETHazin 2020-0 Yes [id number] 25mg Take 1 Univers e 25 mg 3-19 tablet by ity of tablet 00:00: mouth [place] 00 every 6 Medical (six) Branch hours as needed for Nausea and Vomiting (N/V). proMETHazin 2020-0 Yes [id number] 25mg Take 1 Univers e 25 mg 3-19 tablet by ity of tablet 00:00: mouth [place] 00 every 6 Medical (six) Branch hours as needed for Nausea and Vomiting (N/V). proMETHazin 2020-0 Yes [id number] 25mg Take 1 Univers e 25 mg 3-19 tablet by ity of tablet 00:00: mouth [place] 00 every 6 Medical (six) Branch hours as needed for Nausea and Vomiting (N/V). proMETHazin 2020-0 Yes [id number] 25mg Take 1 Univers e 25 mg 3-19 tablet by ity of tablet 00:00: mouth [place] 00 every 6 Medical (six) Branch hours as needed for Nausea and Vomiting (N/V). proMETHazin 2020-0 Yes [id number] 25mg Take 1 Univers e 25 mg 3-19 tablet by ity of tablet 00:00: mouth [place] 00 every 6 Medical (six) Branch hours as needed for Nausea and Vomiting (N/V). proMETHazin 2020-0 Yes [id number] 25mg Take 1 Univers e 25 mg 3-19 tablet by ity of tablet 00:00: mouth [place] 00 every 6 Medical (six) Branch hours as needed for Nausea and Vomiting (N/V). proMETHazin 2020-0 Yes [id number] 25mg Take 1 Univers e 25 mg 3-19 tablet by ity of tablet 00:00: mouth [place] 00 every 6 Medical (six) Branch hours as needed for Nausea and Vomiting (N/V). proMETHazin 2020-0 Yes [id number] 25mg Take 1 Univers e 25 mg 3-19 tablet by ity of tablet 00:00: mouth [place] 00 every 6 Medical (six) Branch hours as needed for Nausea and Vomiting (N/V). proMETHazin 2020-0 Yes [id number] 25mg Take 1 [facility] e 25 mg 3-19 tablet by ity of tablet 00:00: mouth [place] 00 every 6 Medical (six) Branch hours as needed for Nausea and Vomiting (N/V). proMETHazin 2020-0 Yes [id number] 25mg Take 1 Univers e 25 mg 3-19 tablet by ity of tablet 00:00: mouth [place] 00 every 6 Medical (six) Branch hours as needed for Nausea and Vomiting (N/V). proMETHazin 2020-0 Yes [id number] 25mg Take 1 Univers e 25 mg 3-19 tablet by ity of tablet 00:00: mouth [place] 00 every 6 Medical (six) Branch hours as needed for Nausea and Vomiting (N/V). proMETHazin 2020-0 Yes [id number] 25mg Take 1 Univers e 25 mg 3-19 tablet by ity of tablet 00:00: mouth [place] 00 every 6 Medical (six) Branch hours as needed for Nausea and Vomiting (N/V). proMETHazin 2020-0 Yes [id number] 25mg Take 1 [facility] e 25 mg 3-19 tablet by ity of tablet 00:00: mouth [place] 00 every 6 Medical (six) Branch hours as needed for Nausea and Vomiting (N/V). proMETHazin 2020-0 2020- No [id number] 25mg Take 1 Univers e 25 mg 3-19 11- tablet by ity of tablet 00:00: 00:00 mouth [place] 00 :00 every 6 Medical (six) Branch hours as needed for Nausea and Vomiting (N/V). No known No [facility] medications [facility] [place] [facility] Immunizations Ordered Filled Immunization Date Status Comments [facility] e Immunization Name Name SARS-COV-2 COVID-19 2021-04-14 Completed Unive rsity of VACCINE - (MODERNA) 00:00:00 [facility] SARS-COV-2 COVID-19 2021-04-14 Completed Unive rsity of VACCINE - (MODERNA) 00:00:00 [facility] SARS-COV-2 COVID-19 2021-04-14 Completed Unive rsity of VACCINE - (MODERNA) 00:00:00 [facility] SARS-COV-2 COVID-19 2021-03-17 Completed Unive rsity of VACCINE - (MODERNA) 00:00:00 [facility] SARS-COV-2 COVID-19 2021-03-17 Completed Unive rsity of VACCINE - (MODERNA) 00:00:00 [facility] SARS-COV-2 COVID-19 2021-03-17 Completed Unive rsity of VACCINE - (MODERNA) 00:00:00 [facility] MMR 2020-08-16 Completed University of 00:00:00 [facility] MMR 2020-08-16 Completed University of 00:00:00 [facility] MMR 2020-08-16 Completed University of 00[facility]00:00 [facility] MMR 2020-08-16 Completed University of 00:00:00 [facility] MMR 2020-08-16 Completed University of 00[facility]00:00 [facility] MMR 2020-08-16 Completed University of 00:00:00 [facility] MMR 2020-08-16 Completed University of 00:00:00 [facility] Influenza Virus 2020-01-02 Completed Universit y of [facility] .5 mL 00:00:00 [facility] IM 6+ MO Branch Influenza Virus 2020-01-02 Completed Universit y of [facility] .5 mL 00:00:00 [facility] IM 6+ MO Branch Influenza Virus 2020-01-02 Completed Universit y of [facility] .5 mL 00:00:00 [facility] IM 6+ MO Branch Influenza Virus 2020-01-02 Completed Universit y of [facility] .5 mL 00:00:00 [facility] IM 6+ MO Branch Influenza Virus 2020-01-02 Completed Universit y of [facility] .5 mL 00:00:00 [facility] IM 6+ MO Branch Influenza Virus 2020-01-02 [...] 00:00:00 [place] [facility] IM 6+ MO Branch Tdap 2018-10-18 Completed University of 00:00:00 [place] [facility] TDAP 2018-10-18 Completed University of 00:00:00 [place] [facility] TDAP 2018-10-18 Completed [facility] of 00:00:00 [place] [facility] TDAP 2018-10-18 Completed University of 00:00:00 [facility] TDAP 2018-10-18 Completed University of 00:00:00 [facility] Tdap 2018-10-18 Completed University of 00:00:00 [facility] Tdap 2018-10-18 Completed University of 00:00:00 [facility] Tdap 2018-10-18 Completed University of 00:00:00 [place] [facility] Tdap 2018-10-18 Completed University of 00:00:00 [place] [facility] Tdap 2018-10-18 Completed University of 00:00:00 [place] [facility] Tdap 2018-10-18 Completed University of 00:00:00 [place] [facility] Tdap 2018-10-18 Completed University of 00:00:00 [place] [facility] Tdap 2018-10-18 Completed University of 00:00:00 [place] [facility] Tdap 2018-10-18 Completed University of 00:00:00 [place] [facility] Tdap 2018-10-18 Completed University of 00:00:00 [place] [facility] Tdap 2018-10-18 Completed University of 00:00:00 [place] [facility] Tdap 2018-10-18 Completed University of 00:00:00 [place] [facility] Tdap 2018-10-18 Completed University of 00:00:00 [place] [facility] Tdap 2018-10-18 Completed University of 00:00:00 [place] [facility] Tdap 2018-10-18 Completed University of 00:00:00 [place] [facility] TDAP 2018-10-18 Completed University of 00:00:00 [place] [facility] TDAP 2018-10-18 Completed University of 00:00:00 [place] [facility] TDAP 2018-10-18 Completed University of 00:00:00 [place] [facility] TDAP 2018-10-18 Completed University of 00:00:00 [place] [facility] TDAP 2018-10-18 Completed University of 00:00:00 [place] [facility] Tdap 2018-10-18 Completed University of 00:00:00 [place] [facility] TDAP 2018-10-18 Completed University of 00:00:00 [place] [facility] TDAP 2018-10-18 Completed University of 00:00:00 [place] [facility] TDAP 2018-10-18 Completed University of 00:00:00 [place] [facility] TDAP 2018-10-18 Completed [facility] of 00:00:00 [place] [facility] TDAP 2018-10-18 Completed [facility] of 00:00:00 [place] [facility] TDAP 2018-10-18 Completed University of 00:00:00 [place] [facility] TDAP 2018-10-18 Completed University of 00:00:00 [place] [facility] TDAP 2018-10-18 Completed University of 00:00:00 [place] [facility] TDAP 2018-10-18 Completed University of 00:00:00 [place] [facility] TDAP 2018-10-18 Completed University of 00:00:00 [facility] Branch TDAP 2018-10-18 Completed University of 00:00:00 [place] [facility] TDAP 2018-10-18 Completed University of 00:00:00 [place] [facility] TDAP 2018-10-18 Completed University of 00:00:00 [place] [facility] TDAP 2018-10-18 Completed University of 00:00:00 [place] [facility] TDAP 2018-10-18 Completed University of 00:00:00 [place] [facility] TDAP 2018-10-18 Completed University of 00:00:00 [place] [facility] TDAP 2018-10-18 Completed University of 00:00:00 [facility] Branch TDAP 2018-10-18 Completed University of 00:00:00 [facility] Branch TDAP 2018-10-18 Completed University of 00:00:00 [facility] Branch Tdap 2018-10-18 Completed University of 00:00:00 [facility] Branch TDAP 2018-10-18 Completed University of 00:00:00 [facility] Branch TDAP 2018-10-18 Completed University of 00:00:00 [facility] Branch TDAP 2018-10-18 Completed University of 00:00:00 [facility] Branch TDAP 2018-10-18 Completed University of 00:00:00 [facility] Branch Tdap 2018-10-18 Completed University of 00:00:00 [facility] Branch TDAP 2018-10-18 Completed University of 00:00:00 [facility] Branch TDAP 2018-10-18 Completed University of 00:00:00 [facility] TDAP 2018-10-18 Completed University of 00:00:00 [facility] Influenza Virus 2018-08-20 Completed Universit y of Vaccine [facility] IM 00:00:00 [place] [facility] Multi-dose 6+ MO Branch Influenza [...] [facility]it y of Vaccine [facility] IM 00:00:00 [place] [facility] Multi-dose 6+ MO Branch Influenza [...] Branch HPV 2015-05-06 Completed University of 00:00:00 [facility] Branch HPV 2015-05-06 Completed University of 00:00:00 [facility] Branch HPV 2015-05-06 Completed University of 00:00:00 [facility] Branch HPV 2015-05-06 Completed University of 00:00:00 [facility] Branch HPV 2015-05-06 Completed University of 00:00:00 [facility] Branch HPV 2015-05-06 Completed University of 00:00:00 [facility] Branch HPV 2015-05-06 Completed University of 00:00:00 [facility] Branch HPV 2015-05-06 Completed University of 00:00:00 [facility] Branch HPV 2015-05-06 Completed University of 00:00:00 [facility] Branch HPV 2015-05-06 Completed University of 00:00:00 [facility] Branch HPV 2015-05-06 Completed University of 00:00:00 [facility] Branch HPV 2015-05-06 Completed University of 00:00:00 [facility] Branch HPV 2015-05-06 Completed University of 00:00:00 [facility] Branch HPV 2015-05-06 Completed University of 00:00:00 [facility] Branch HPV 2015-05-06 Completed University of 00:00:00 [facility] Branch HPV 2015-05-06 Completed University of 00:00:00 [facility] Branch HPV 2015-05-06 Completed University of 00:00:00 [facility] Branch HPV 2015-05-06 Completed University of 00:00:00 [facility] Branch HPV 2015-05-06 Completed University of 00:00:00 [facility] Branch HPV 2015-05-06 Completed University of 00:00:00 [facility] Branch HPV 2015-05-06 Completed University of 00:00:00 [facility] Branch HPV 2015-05-06 Completed University of 00:00:00 [facility] Branch HPV 2015-05-06 Completed University of 00:00:00 [facility] Branch HPV 2015-05-06 Completed University of 00:00:00 [facility] Branch HPV 2015-05-06 Completed University of 00:00:00 [facility] Branch HPV 2015-05-06 Completed University of 00:00:00 [facility] Branch HPV 2015-05-06 Completed University of 00:00:00 [facility] Branch HPV 2015-05-06 Completed University of 00:00:00 [facility] Branch HPV 2015-05-06 Completed University of 00:00:00 [facility] Branch HPV 2015-05-06 Completed University of 00:00:00 [...] Branch HPV 2014-11-06 Completed University of 00:00:00 [place] [facility] Td 2008-10-16 Completed University of 00:00:00 [facility] Branch TD, NOS 2008-10-16 Completed University of 00:00:00 [place] [facility] TD, NOS 2008-10-16 Completed University of 00:00:00 [place] [facility] TD, NOS 2008-10-16 Completed University of 00:00:00 [place] [facility] Td 2008-10-16 Completed [facility] of 00:00:00 [place] [facility] TD, NOS 2008-10-16 Completed [facility] of 00:00:00 [place] [facility] [...] Branch Td 2008-10-16 Completed University of 00:00:00 [place] [facility] Td 2008-10-16 Completed [facility] of 00:00:00 [place] [facility] Td 2008-10-16 Completed [facility] of 00:00:00 [place] [facility] Td 2008-10-16 Completed [facility] of 00:00:00 [place] [facility] Td 2008-10-16 Completed [facility] of 00:00:00 [place] [facility] Td 2008-10-16 Completed [facility] of 00:00:00 [place] [facility] Td 2008-10-16 Completed [facility] of 00:00:00 [place] [facility] Td 2008-10-16 Completed [facility] of 00:00:00 [place] [facility] Td 2008-10-16 Completed [facility] of 00:00:00 [place] [facility] Td 2008-10-16 Completed [facility] of 00:00:00 [place] [facility] Td 2008-10-16 Completed [facility] of 00:00:00 [place] [facility] Td 2008-10-16 Completed University of 00:00:00 [place] [facility] Td 2008-10-16 Completed University of 00:00:00 [facility] Td 2008-10-16 Completed University of 00:00:00 [place] [facility] Td 2008-10-16 Completed [facility] of 00:00:00 [place] [facility] Td 2008-10-16 Completed [facility] of 00:00:00 [place] [facility] Td 2008-10-16 Completed [facility] of 00:00:00 [place] [facility] Td 2008-10-16 Completed [facility] of 00:00:00 [place] [facility] Td 2008-10-16 Completed University of 00:00:00 [facility] Td 2008-10-16 Completed [facility] of 00:00:00 [place] [facility] Td 2008-10-16 Completed [facility] of 00:00:00 [place] [facility] Td 2008-10-16 Completed [facility] of 00:00:00 [place] [facility] Td 2008-10-16 Completed [facility] of 00:00:00 [place] [facility] Td 2008-10-16 Completed [facility] of 00:00:00 [place] [facility] Td 2008-10-16 Completed [facility] of 00:00:00 [place] [facility] Td 2008-10-16 Completed [facility] of 00:00:00 [place] [facility] Td 2008-10-16 Completed [facility] of 00:00:00 [place] [facility] Td 2008-10-16 Completed [facility] of 00:00:00 [place] [facility] Td 2008-10-16 Completed [facility] of 00:00:00 [place] [facility] Td 2008-10-16 Completed [facility] of 00:00:00 [place] [facility] Td 2008-10-16 Completed [facility] of 00:00:00 [place] [facility] Td 2008-10-16 Completed [facility] of 00:00:00 [place] [facility] Td 2008-10-16 Completed [facility] of 00:00:00 [place] [facility] Td 2008-10-16 Completed [facility] of 00:00:00 [place] [facility] Td 2008-10-16 Completed [facility] of 00:00:00 [place] [facility] Td 2008-10-16 Completed [facility] of 00:00:00 [place] [facility] Vital Signs Vital Name Observation Time Observation Value Comments Source Systolic blood 2022-11-15 14:28:00 104 mm[Hg] Univer sity of pressure [facility] Diastolic blood 2022-11-15 14:28:00 54 mm[Hg] Unive rsity of pressure [facility] Heart rate 2022-11-15 14:28:00 81 /min [facility] [place] [facility] Body temperature 2022-11-15 14:28:00 37.39 [facility] Respiratory rate 2022-11-15 14:28:00 18 /min [facility] Body height 2022-11-15 14:28:00 165.1 cm [facility] Body weight 2022-11-15 14:28:00 60.691 kg [facility] BMI 2022-11-15 14:28:00 22.27 kg/m2 [facility] Systolic blood 2020-09-07 16:25:00 103 mm[Hg] [facility] Diastolic blood 2020-09-07 16:25:00 67 mm[Hg] [facility] Heart rate 2020-09-07 16:25:00 61 /min [facility] Body temperature 2020-09-07 16:25:00 36.83 [place] [facility] Respiratory rate 2020-09-07 16:25:00 16 /min [facility] Body height 2020-09-07 16:25:00 165.1 cm [facility] Body weight 2020-09-07 16:25:00 74.299 kg [facility] BMI 2020-09-07 16:25:00 27.26 kg/m2 [facility] Systolic blood 2020-09-07 16:25:00 103 mm[Hg] [facility] Diastolic blood 2020-09-07 16:25:00 67 mm[Hg] [facility] Heart rate 2020-09-07 16:25:00 61 /min [facility] Body temperature 2020-09-07 16:25:00 36.83 Del[place] [facility] Respiratory rate 2020-09-07 16:25:00 16 /min [facility] Body height 2020-09-07 16:25:00 165.1 cm [facility] Body weight 2020-09-07 16:25:00 74.299 kg [facility] BMI 2020-09-07 16:25:00 27.26 kg/m2 [facility] Systolic blood 2020-08-16 13:55:00 125 mm[Hg] Univer sity of [facility] Diastolic blood 2020-08-16 13:55:00 85 mm[Hg] Unive rsity of pressure [facility] Heart rate 2020-08-16 13:55:00 73 /min [facility] Body temperature 2020-08-16 13:55:00 37 [place] [facility] Respiratory rate 2020-08-16 13:55:00 17 /min [facility] Oxygen saturation in 2020-08-16 13:55:00 97 /min [facility] of Arterial blood by [facility] Pulse oximetry Branch Body height 2020-08-14 15:45:00 165.1 cm [facility] Body weight 2020-08-14 15:45:00 83.689 kg [facility] BMI 2020-08-14 15:45:00 30.70 kg/m2 [facility] Systolic blood 2020-08-16 13:55:00 125 mm[Hg] Univer [facility]ity [facility] Diastolic blood 2020-08-16 13:55:00 85 mm[Hg] Unive rsity of [facility] Heart rate 2020-08-16 13:55:00 73 /min [facility]i [facility] Body temperature 2020-08-16 13:55:00 37 [place] [facility] Respiratory rate 2020-08-16 13:55:00 17 /min [facility] Oxygen saturation in 2020-08-16 13:55:00 97 /min [facility] Arterial blood by [facility] Pulse oximetry Branch Body height 2020-08-14 15:45:00 165.1 cm [facility] Body weight 2020-08-14 15:45:00 83.689 kg [facility] BMI 2020-08-14 15:45:00 30.70 kg/m2 [facility] Heart rate 2020-08-11 05:30:00 83 /min [facility] Oxygen saturation in 2020-08-11 04:45:00 98 /min [facility] Arterial blood by [facility] Pulse oximetry Branch Systolic blood 2020-08-11 04:39:00 113 mm[Hg] [facility] Diastolic blood 2020-08-11 04:39:00 78 mm[Hg] [facility] Body temperature 2020-08-11 04:39:00 36.83 [place] [facility] Respiratory rate 2020-08-11 04:39:00 16 /min [facility] Body height 2020-08-11 04:39:00 165.1 cm [facility] Body weight 2020-08-11 04:39:00 83.462 kg [facility] BMI 2020-08-11 04:39:00 30.62 kg/m2 [facility] Heart rate 2020-08-11 05:30:00 83 /min [facility] Oxygen saturation in 2020-08-11 04:45:00 98 /min [facility] Arterial blood by [facility] Pulse oximetry Branch Systolic blood 2020-08-11 04:39:00 113 mm[Hg] [facility] Diastolic blood 2020-08-11 04:39:00 78 mm[Hg] [facility] Body temperature 2020-08-11 04:39:00 36.83 [place] [facility] Respiratory rate 2020-08-11 04:39:00 16 /min [facility] Body height 2020-08-11 04:39:00 165.1 cm [facility] Body weight 2020-08-11 04:39:00 83.462 kg [facility] BMI 2020-08-11 04:39:00 30.62 kg/m2 [facility] Systolic blood 2020-08-06 19:05:00 119 mm[Hg] [facility] Diastolic blood 2020-08-06 19:05:00 72 mm[Hg] [facility] Heart rate 2020-08-06 19:05:00 91 /min [facility] Body temperature 2020-08-06 19:05:00 36.72 [place] [facility] Respiratory rate 2020-08-06 19:05:00 16 /min [facility] Body height 2020-08-06 19:05:00 165.1 cm [facility] Body weight 2020-08-06 19:05:00 81.279 kg [facility] BMI 2020-08-06 19:05:00 29.82 kg/m2 [facility] Systolic blood 2020-08-06 19:05:00 119 mm[Hg] [facility] Diastolic blood 2020-08-06 19:05:00 72 mm[Hg] [facility] Heart rate 2020-08-06 19:05:00 91 /min [facility] Body temperature 2020-08-06 19:05:00 36.72 [place] [facility] Respiratory rate 2020-08-06 19:05:00 16 /min [facility] Body height 2020-08-06 19:05:00 165.1 cm [facility] Body weight 2020-08-06 19:05:00 81.279 kg [facility] BMI 2020-08-06 19:05:00 29.82 kg/m2 [facility] Systolic blood 2020-07-31 18:04:00 108 mm[Hg] [facility] Diastolic blood 2020-07-31 18:04:00 68 mm[Hg] [facility] Heart rate 2020-07-31 18:04:00 81 /min [facility] Body temperature 2020-07-31 18:04:00 37 [place] [facility] Respiratory rate 2020-07-31 18:04:00 16 /min [facility] Body height 2020-07-31 18:04:00 165.1 cm [facility] Body weight 2020-07-31 18:04:00 80.105 kg [facility] BMI 2020-07-31 18:04:00 29.39 kg/m2 [facility] Systolic blood 2020-07-24 14:32:00 115 mm[Hg] [facility] Diastolic blood 2020-07-24 14:32:00 72 mm[Hg] [facility] Heart rate 2020-07-24 14:32:00 104 /min [facility] Body temperature 2020-07-24 14:32:00 36.72 [place] [facility] Respiratory rate 2020-07-24 14:32:00 16 /min [facility] Body height 2020-07-24 14:32:00 165.1 cm [facility] Body weight 2020-07-24 14:32:00 79.153 kg [facility] BMI 2020-07-24 14:32:00 29.04 kg/m2 [facility] Systolic blood 2020-07-10 16:09:00 115 mm[Hg] [facility] Diastolic blood 2020-07-10 16:09:00 69 mm[Hg] [facility] Heart rate 2020-07-10 16:09:00 81 /min [facility] Body temperature 2020-07-10 16:09:00 36.39 [place] [facility] Respiratory rate 2020-07-10 16:09:00 16 /min [facility] Body height 2020-07-10 16:09:00 165.1 cm [facility] Body weight 2020-07-10 16:09:00 76.885 kg [facility] BMI 2020-07-10 16:09:00 28.21 kg/m2 [facility] Systolic blood 2020-06-26 13:58:00 110 mm[Hg] [facility] Diastolic blood 2020-06-26 13:58:00 73 mm[Hg] [facility] Heart rate 2020-06-26 13:58:00 99 /min [facility] Body temperature 2020-06-26 13:58:00 36.11 [place] [facility] Respiratory rate 2020-06-26 13:58:00 16 /min [facility] Body height 2020-06-26 13:58:00 162.6 cm [facility] Body weight 2020-06-26 13:58:00 74.078 kg [facility] BMI 2020-06-26 13:58:00 28.03 kg/m2 [facility] Systolic blood 2020-06-12 15:31:00 108 mm[Hg] [facility] Diastolic blood 2020-06-12 15:31:00 69 mm[Hg] [facility] Heart rate 2020-06-12 15:31:00 97 /min [facility] Body temperature 2020-06-12 15:31:00 36.11 [place] [facility] Respiratory rate 2020-06-12 15:31:00 16 /min [facility] Body height 2020-06-12 15:31:00 162.6 cm [facility] Body weight 2020-06-12 15:31:00 72.689 kg [facility] BMI 2020-06-12 15:31:00 27.51 kg/m2 [facility] Systolic blood 2020-05-28 16:20:00 114 mm[Hg] [facility] Diastolic blood 2020-05-28 16:20:00 69 mm[Hg] [facility] Heart rate 2020-05-28 16:20:00 85 /min [facility] Body temperature 2020-05-28 16:20:00 36.11 [place] [facility] Respiratory rate 2020-05-28 16:20:00 16 /min [facility] Body height 2020-05-28 16:20:00 162.6 cm [facility] Body weight 2020-05-28 16:20:00 70.988 kg [facility] BMI 2020-05-28 16:20:00 26.86 kg/m2 [facility] Systolic blood 2020-04-28 15:52:00 114 mm[Hg] [facility] Diastolic blood 2020-04-28 15:52:00 73 mm[Hg] [facility] Heart rate 2020-04-28 15:52:00 87 /min [facility] Body temperature 2020-04-28 15:52:00 36.22 [place] [facility] Respiratory rate 2020-04-28 15:52:00 16 /min [facility] Body height 2020-04-28 15:52:00 162.6 cm [facility] Body weight 2020-04-28 15:52:00 68.266 kg [facility] BMI 2020-04-28 15:52:00 25.83 kg/m2 [facility] Systolic blood 2020-03-31 15:19:00 97 mm[Hg] [facility] Diastolic blood 2020-03-31 15:19:00 63 mm[Hg] [facility] Heart rate 2020-03-31 15:19:00 69 /min [facility] Body temperature 2020-03-31 15:19:00 36.39 [place] [facility] Respiratory rate 2020-03-31 15:19:00 16 /min [facility] Body height 2020-03-31 15:19:00 162.6 cm [facility] Body weight 2020-03-31 15:19:00 67.841 kg [facility] BMI 2020-03-31 15:19:00 25.67 kg/m2 [facility] Body weight 2020-02-14 18:17:00 63.504 kg [facility] BMI 2020-02-14 18:17:00 23.30 kg/m2 [facility] Systolic blood 2020-02-04 16:13:00 115 mm[Hg] Univer [facility]ity of [facility] Diastolic blood 2020-02-04 16:13:00 70 mm[Hg] Unive rsity of pressure [facility] Heart rate 2020-02-04 16:13:00 79 /min [facility]i [facility] Body temperature 2020-02-04 16:13:00 36.17 [place] [facility] Respiratory rate 2020-02-04 16:13:00 16 /min [facility] Body height 2020-02-04 16:13:00 165.1 cm [facility] Body weight 2020-02-04 16:13:00 63.645 kg [facility] BMI 2020-02-04 16:13:00 23.35 kg/m2 [facility] Systolic blood 2020-01-02 14:54:00 105 mm[Hg] Univer sity of pressure [facility] Diastolic blood 2020-01-02 14:54:00 64 mm[Hg] Unive rsity of pressure [facility] Heart rate 2020-01-02 14:54:00 83 /min [facility]i [facility] Body temperature 2020-01-02 14:54:00 37 [place] [facility] Respiratory rate 2020-01-02 14:54:00 16 /min [facility] Body height 2020-01-02 14:54:00 165.1 cm [facility] Body weight 2020-01-02 14:54:00 62.171 kg [facility] BMI 2020-01-02 14:54:00 22.81 kg/m2 [facility] Procedures Procedure Date / Time Performing Clinician Source Performed CONSENT/REFUSAL FOR 2022-11-15 14:10:32 Doctor Unassigned, Unive [facility] DIAGNOSIS AND TREATMENT [facility] ASSIGNMENT OF BENEFITS 2022-11-15 14:10:13 Doctor Unassigned, [facility] CBC WITH DIFF 2020-08-15 09:11:00 Saud [facility] o f [facility] VENOUS CORD GAS 2020-08-15 00:55:00 Verito Davis, [facility] CBC WITH DIFF 2020-08-14 10:24:00 Edel Carballo Fonda o f [facility] HEPATITIS B SURFACE 2020-08-14 10:24:00 Edel Carballo [facility] ANTIGEN [facility] ADC OR ISA ONLY - RPR 2020-08-14 10:24:00 Edel Carballo [facility] HIV 1/2 AG-AB WITH REFLEX 2020-08-14 10:24:00 Edel Carballo [facility] HB ABO GROUPING 2020-08-14 10:20:00 Edel Carballo Fonda o [facility] RHO (D) IMMUNE GLOBULIN 2020-08-14 10:20:00 Felecia Villavicencio [facility] COVID-19 (ID NOW RAPID 2020-08-14 09:21:00 Edel Carballo [facility] TESTING) [facility] ADC ONLY - FERN TEST 2020-08-14 09:05:00 Edel Carballo [facility] L&D VISIT (NON-DELIVERED) 2020-08-14 05:01:00 Doctor Unassigned, [facility] Name [facility] NON-STRESS TEST 2020-08-06 19:54:52 Mally Henry U [facility] POCT URINALYSIS 2020-08-06 19:06:00 Carl Mally C [facility] POCT URINALYSIS 2020-07-31 00:00:00 Ford Henryilola C [facility] POCT URINALYSIS 2020-07-24 14:33:00 Akinsipe Mally C [facility] POCT URINALYSIS 2020-07-10 00:00:00 Akinsipe Mally C Univers [facility] POCT URINALYSIS 2020-06-26 14:01:00 Akinsipe Mally C [facility] POCT URINALYSIS 2020-06-12 15:33:00 Akinsirené Mally C [facility] STERILIZATION CONSENT 2020-06-12 05:01:00 Doctor Unassigned, [facility] POCT URINALYSIS 2020-05-28 16:24:00 Mally [facility] 2020-04-28 15:54:00 Mally Henry [facility] POCT URINALYSIS 2020-03-31 15:20:00 Mally Henry [facility] POCT URINALYSIS 2020-02-04 19:05:00 Mally Henry [facility] PATIENT CORRESPONDENCE 2020-02-04 05:01:00 [facility]PS [place] [facility] DOCUMENTATION) FLU VACC ([id number]), 6+ 2020-01-02 15:11:35 Mally Henry [facility] MONTHS, IM, QUAD [facility] POCT TEST 2020-01-02 14:49:00 Mally Henry Uni versity [facility] POCT URINALYSIS W/O 2020-01-02 14:49:00 Mally Henry Uni versity [facility] SPECIFIC GRAVITY [facility] NOTICE OF PRIVACY 2020-01-02 14:17:14 Doctor Unassigned, [facility] PRACTICES [place] [facility] Encounters Start End Encounter Admission Attending Care Care Encounter Source Date/Time Date/Time Type Type Clinicians Facility Department ID 2021-08-14 Outpatient P [facility] [id number] Univers 01:11:54 ity of [facility] 2021-08-14 Emergency [facility] [id number] Univers 01:11:26 ity of [facility] 2021-08-14 Outpatient P [facility] [id number] Univers 01:11:26 ity of [facility] 2022-11-17 2022-11-17 Joseph Smart IDPK [id number] Univers 00:00:00 00:00:00 Management Hafsa Lenz [employer] [id number] ity [facility] [id number] [place] as MATERNAL [id number] Med ical & CHILD [address] [place] [address] 2022-11-15 2022-11-15 [id number] Univers 08:15:00 10:03:13 HAFSA ity of [facility] 2022-11-15 2022-11-15 Office Provider, Flako Benites [facility] 1 [id number] Univers 08:15:00 10:03:13 Visit CarHafsa avendano Yoanna [employer] WORK[employer] [id number] [id number] ity of REGIONAL [id number] [place] as MATERNAL [id number] Med ical & CHILD [address] [place] [address] 2022-11-15 2022-11-15 Orders Doctor KAVYA [id number] Univers 00:00:00 00:00:00 Only Unassigned, DILIP [id number] ity of [place] [facility] [id number] Dale as [id number] [address] 2020-09-28 2020-09-28 Outpatient [facility] [id number] Univers 10:30:00 10:30:00 ROSMOONNDA ity o f [facility] 2020-09-07 2020-09-07 Routine [facility] [id number] 10:06:40 10:21:40 Roshunda R [employer] [id number] Visit REGIONAL [id number] MATERNAL [id number] & CHILD [address] [place] [address] 2020-09-07 2020-09-07 [facility] 1.2.840.114 [id number] Univers 10:06:40 10:21:40 Roshunda R [employer] SK[employer] WORK[employer] [id number] [facility] [id number] [place] as MATERNAL [id number] Med ica & CHILD [address] [place] [address] 2020-09-07 2020-09-07 Outpatient [facility] [id number] Univers 10:15:00 10:15:00 ROSHUNDA ity o f [facility] 2020-08-26 2020-08-26 Telephone [facility] 1.2.840.114 [id number] 00:00:00 00:00:00 Mally Schilling [employer] WORK[employer] [id number] REGIONAL [id number] MATERNAL [id number] & CHILD [address] [place] [address] 2020-08-26 2020-08-26 Telephone Carl [facility] 1.2.840.114 [id number] Univers 00:00:00 00:00:00 Mally Schilling [employer] WORK[employer] [id number] ity of REGIONAL [id number] [place] as MATERNAL [id number] [facility] ical & CHILD [address] [place] [address] 2020-08-14 2020-08-16 [facility] Edel Carballo KAVYA [id number] [facility] 03:09:00 12:55:00 Encounter Sellers LeeannVonnie morris DILIP 350. [id number] ity of [facility] [id number] [facility] [address] [place] 2020-08-14 2020-08-16 [facility] Edel Carballo KAVYA 1.2.840.114 [id number] 03:09:00 12:55:00 Encounter Sellers LeeannVonnie morris DILIP 350. [id number] HOSPITAL [id number] [id number] 2020-08-14 2020-08-14 Outpatient R [facility] [id number] Univers 08:00:00 08:00:00 MALLY serna o f [facility] 2020-08-14 2020-08-14 Orders Doctor HOFF 1.2.840.114 [id number] Univers 00:00:00 00:00:00 Only Unassigned, DILIP [id number] [facility]y [facility] [place] [facility] [id number] [facility] [address] [place] 2020-08-14 2020-08-14 Orders Doctor HOFF 1.2.840.114 [id number] 00:00:00 00:00:00 Only Unassigned, DILIP [id number] [facility] [id number] [id number] 2020-08-10 2020-08-11 [facility] Juan Francisco Garcia [facility] 1.2.840.114 [id number] [facility] 23:10:00 01:00:00 Encounter [place] [id number] ity of [id number] [place] [id number] [address] 2020-08-10 2020-08-11 [facility] Juan Francisco Garcia [facility] 1.2.840.114 [id number] 23:10:00 01:00:00 Encounter [place] [id number] Odd [id number] [place] [id number] [facility] 2020-08-06 2020-08-06 [facility] [id number] Univers 13:48:55 14:59:03 Mally C [employer] [id number] ity of Visit REGIONAL [id number] [place] as MATERNAL [id number] [facility] ical & CHILD [address] [place] [address] 2020-08-06 2020-08-06 Routine [facility] [id number] 13:48:55 14:59:03 Mally C [employer] [id number] Visit REGIONAL [id number] MATERNAL [id number] & CHILD [address] [place] [address] 2020-08-06 2020-08-06 Outpatient R WING, [facility] [id number] Univers 14:00:00 14:00:00 MALLY ity o f [facility] 2020-08-03 2020-08-03 Telephone [facility] 1.2.840.114 [id number] Univers 00:00:00 00:00:00 Mally C [employer] [id number] ity of REGIONAL [id number] [place] as MATERNAL [id number] [facility] ical & CHILD [address] [place] [address] 2020-08-03 2020-08-03 Telephone [facility] 1.2.840.114 [id number] 00:00:00 00:00:00 Mally C [employer] WORK[employer] [id number] REGIONAL [id number] MATERNAL [id number] & CHILD [address] [facility] 2020-07-31 2020-07-31 Routine Akinsipe, [facility] [id number] Univers 12:50:31 13:29:28 Mally C [employer] WORK[employer] [id number] ity of Visit REGIONAL [id number] [place] as MATERNAL [id number] [facility] & [address] 2020-07-31 2020-07-31 Outpatient R AKINSIPE, [facility] [id number] Univers 13:00:00 13:00:00 MALLY ity o f [facility] 2020-07-24 2020-07-24 Routine Akinsipe, [facility] [id number] Univers 09:28:35 09:47:20 Mally C [employer] [id number] ity of Visit REGIONAL [id number] [place] as MATERNAL [id number] [facility] & [address] 2020-07-24 2020-07-24 Outpatient R AKINSIPE, [facility] [id number] Univers 09:30:00 09:30:00 MALLY ity o [facility] 2020-07-22 2020-07-22 Telephone [facility] 1.2.840.114 [id number] Univers 00:00:00 00:00:00 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 4.2.7.2.686 [place] as MATERNAL [phone] [facility] ical & CHILD 107 [facility] 2020-06-26 2020-06-26 Outpatient R AKINSIPE, [facility] [id number] Univers 09:00:00 09:00:00 MALLY ity o f [facility] 2020-06-16 2020-06-16 Outpatient R AKINSIPE, [facility] [id number] Univers 09:30:00 09:30:00 MALLY ity o f 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 4.2.7.2.686 [place] as MATERNAL [id number] [facility] CHILD [address] [place] [address] 2020-06-12 2020-06-12 Outpatient R AKINSIPE, [facility] [id number] Univers 10:30:00 10:30:00 MALLY ity o [facility] 2020-06-12 2020-06-12 Outpatient R AKINSIPE, [facility] [id number] Univers 09:30:00 09:30:00 MALLY ity o [facility] 2020-06-12 2020-06-12 Orders Doctor HOFF 1.2.840.114 [id number] Univers 00:00:00 00:00:00 Only Unassigned, DILIP 350.1.13.10 [place] of [place] [facility] 4.2.7.2.686 Dale as [id number] [address] 2020-06-11 2020-06-11 Outpatient R AKINSIPE, [facility] [id number] Univers 10:30:00 10:30:00 MALLY ity o [facility] 2020-06-01 2020-06-01 Acid Adjuster Lab, [facility] 1.2.840. 114 [id number] Univers 08:45:01 08:51:02 Visit AkinsipeFordMally C LIFE SKILLS WORKER 350.1.13. 10 ity of REGIONAL 4.2.7.2.686 [place] as MATERNAL [phone] [facility] & [address] 2020-06-01 2020-06-01 Outpatient R AKINSIPE, [facility] [id number] Univers 08:30:00 08:30:00 MALLY ity o f [facility] 2020-05-29 2020-05-29 Outpatient R [facility] [id number] Univers 08:30:00 08:30:00 ity of 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 2020-05-26 2020-05-26 Outpatient R AKINSIPE, [facility] [id number] Univers 12:45:00 12:45:00 MALLY ity o f 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 2020-04-13 2020-04-13 Acid Adjuster Ultrasound, [facility] 1.2 .840.114 [id number] Univers 08:04:15 09:19:15 Visit Joanne Nogueira LIFE SKILLS WORKER 350.1.13.10 ity of REGIONAL 4.2.7.2.686 [place] as MATERNAL [phone] [facility] ical & CHILD 369 [facility] 2020-04-13 2020-04-13 Outpatient P [facility] [id number] Univers 08:00:00 08:00:00 ity of 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 2020-03-30 2020-03-30 Telephone Olivier Jaramillo 1.2.840.11 [id number] Univers 00:00:00 00:00:00 [facility] HEALTH 350.1.13.10 i ty of CL[place] [id number] [address] 2020-03-03 2020-03-03 Acid Adjuster Lab, [facility] 1.2.840. 114 [id number] Univers 09:41:40 10:18:30 Visit Ana MariabentleyFordMally C LIFE SKILLS WORKER 350.1.13. 10 ity of REGIONAL 4.2.7.2.686 [place] as MATERNAL [phone] Med ical & CHILD [address] [place] [address] 2020-03-03 2020-03-03 Outpatient R AKINSIRENÉ, [facility] [id number] Univers 10:15:00 10:15:00 MALLY ity o f [facility] 2020-03-02 2020-03-02 Telemedici [facility] 1.2.840.114 [id number] Univers 08:01:18 09:13:00 ne Visit Mally Schilling LIFE SKILLS WORKER 350.1.13.[address] [facility] 4.2.7.2.686 [place] as MATERNAL [phone] [facility] & [address] 2020-03-02 2020-03-02 Outpatient R AKINBENTLEY, [facility] [id number] Univers 08:30:00 08:30:00 MALLY ity o f [facility] 2020-03-02 2020-03-02 Case Owen, [facility] 1.2.479.005 [id number] Univers 00:00:00 00:00:00 Management Aneg Y HEALTH 350.1.13.10 ity of CL[place] [id number] [address] 2020-02-28 2020-02-28 Outpatient R AKINSIPE, [facility] [id number] Univers 13:00:00 13:00:00 MALLY ity o f [facility] 2020-02-27 2020-02-27 Case Owen, [facility] 1.2.949.385 [id number] Univers 00:00:00 00:00:00 Management Ange Y HEALTH 350.1.13.10 ity of [place] [id number] [address] 2020-02-14 2020-02-14 Outpatient P [facility] [id number] Univers 10:30:00 10:30:00 ity of [facility] 2020-02-14 2020-02-14 Telemedici Estela Esposito 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 WORKER 350.1.13.10 ity of REGIONAL 4.2.7.2.686 [place] as MATERNAL [id number] [facility] & [address] 2020-02-13 2020-02-13 Telephone Derek SANTAREESE 1.2.840.114 [id number] Univers 00:00:00 00:00:00 [facility] 350.1.13.10 ity of CLIN[place] [id number] [address] 2020-02-07 2020-02-07 Telephone [facility] 1.2.840.114 [id number] Univers 00:00:00 00:00:00 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 2020-02-04 2020-02-04 Orders Doctor HOFF 1.2.840.114 [id number] Univers 00:00:00 00:00:00 Only Unassigned, DILIP 350.1.13.10 [place] [facility] 4.2.7.2.[phone] 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 4.2.7.2.686 [place] as MATERNAL [id number] Med ical & CHILD 369 [facility] 2020-01-21 2020-01-21 Outpatient P [facility] [id number] Univers 11:30:00 11:30:00 ity [facility] 2020-01-20 2020-01-20 Outpatient R AMY BARTLETT [facility] [id number] Univers 09:30:00 09:30:00 [facility] 2020-01-20 Routine Faculty, [facility] 1.2 .840.114 [id number] Univers 08:11:20 08:41:20 Amy Bartlett LIFE SKILLS WORKER 350.1.13.[address] [facility] 4.2.7.2.686 [place] as MATERNAL [phone] Med ical & CHILD [address] [place] [address] 2020-01-02 2020-01-02 Initial [facility] 1.2.870.470 [id number] Univers 09:46:25 10:35:48 Mally Schilling LIFE SKILLS WORKER 350.1.13.[address] [facility] 4.2.7.2.686 [place] as MATERNAL [id number] [facility] ical & CHILD [address] [place] [address] 2020-01-02 2020-01-02 Outpatient R CARL [facility] [id number] Univers 10:00:00 10:00:00 MALLY serna o f [facility] 2020-01-02 2020-01-02 Orders Doctor KAVYA 1.2.840.114 [id number] Univers 00:00:00 00:00:00 Only Unassigned, DILIP 350.1.13.10 [place] of [place] [facility] 4.2.7.2.686 Dale as [phone] [place] [address] [place] 2019-02-05 2019-02-05 Outpatient R CARL, [facility] [id number] Univers 13:30:00 13:38:17 MALLY portillo [facility] Results Test Description Test Time Test Comments [...] 31.6 g/dL 31.6-35.1 RDW-SD (test code = 35849-1) 42.4 fL 39-49.9 RDW-CV (test code = 788-0) 14.8 % 12-15.5 PLT (test code = 777-3) See_Comment [Au tomated message] The system which ge nerated this result transmit daniel reference range: 166 - 35 8 10*3/?L. The reference range was not used to interpret th is result as normal/abnormal . MPV (test code = 14574-9) 11.0 fL 9.5-12.9 NRBC/100 WBC (test code = See_Comment [ Automated message] The 1284708796) system which ge nerated this result transmit daniel reference range: 0.0 - 10 .0 /100 WBCs. The reference r carlene was not used to interpr et this result as normal/abnor mal. NRBC x10^3 (test code = <0.01 See_Comment [Au tomated message] The 0114582655) system which ge nerated this result transmit daniel reference range: 10*3/?L. The reference range was not u sed to interpret this result as normal/abnormal . GRAN MAT (NEUT) % (test code 76.2 % = 770-8) IMM GRAN % (test code = 1.30 % 6621190705) LYMPH % (test code = 736-9) 13.2 % MONO % (test code = 5905-5) 8.2 % EOS % (test code = 713-8) 0.8 % BASO % (test code = 706-2) 0.3 % GRAN MAT x10^3(ANC) (test 13.18 10*3/uL 1.88-7.09 H code = 0622072577) IMM GRAN x10^3 (test code = 0.23 10*3/uL 0-0.06 H 4503412053) LYMPH x10^3 (test code = 2.28 10*3/uL 1.32-3.29 731-0) MONO x10^3 (test code = 1.42 10*3/uL 0.33-0.92 H 742-7) EOS x10^3 (test code = 0.13 10*3/uL 0.03-0.39 711-2) BASO x10^3 (test code = 0.05 10*3/uL 0.01-0.07 704-7) Lab Interpretation (test Abnormal code = 73027-3) [facility] CYRUS MERLOS - [id number] 08:55:00 Test Item Value Reference Range Interpretation Comments RPR (Qualitative) (test code = Nonreactive Nonreactive 96366-0) Lab Interpretation (test code = Normal 56671-3) [facility] IMMUNE [id number] 06:27:46 Test Item Value Reference Range Interpretation Comments RHIG CANDIDATE? No- see comment Patient i s not a (test code = candidate for R hIg- 5055) Patient is Rh Positive.Perfor med at [facility] Laboratory Services - [facility] Blood [address] [place] [address]Pvdb Free: [phone] A No. [id number] [facility] CenterARTERIAL CORD [id number] 01:12:00 Test Item Value Reference Range Interpretation Comments BASE EXCESS, CORD mEq/L (test code = 0984779292) AC PH, CORD (BEAKER) 7.18-7.38 (test code = 8107698153) PC02, CORD (test code See_Comment [Auto mated message] The = 6119312425) system which g enerated this result transmit daniel reference range : 32 - 66 mmHg. The refer ence range was not used to interpret this result as normal/abnormal . PO2, CORD (test code See_Comment [Autom ated message] The = 4868580502) system which g enerated this result transmit daniel reference range : 10 - 30 mmHg. The refer ence range was not used to interpret this result as normal/abnormal . BICARBONATE, CORD See_Comment [Automate d message] The (test code = system which ge nerated this 9221383871) result transmit daniel reference range : 17 - 27 mEq/L. The refe rence range was not used to interpret this result as normal/abnormal . [facility] [id number] 01:08:00 Test Item Value Reference Range Interpretation Comments VENOUS BASE EXCESS, mEq/L CORD (test code = 1817186670) VENOUS PH, CORD (test 7.25-7.45 code = 2527652676) VENOUS PC02, CORD See_Comment [Automate d message] The (test code = system which ge nerated 7045021387) this result tra nsmitted reference range : 27 - 49 mmHg. The refer ence range was not used to interpret this result as normal/abnormal . VENOUS PO2, CORD (test See_Comment [Aut omated message] The code = 2700683542) system wh ich generated this result tra nsmitted reference range : 17 - 41 mmHg. The refer ence range was not used to interpret this result as normal/abnormal . VENOUS BICARBONATE, See_Comment QUES [Au tomated message] CORD (test code = The system which generated 1622803764) this result tra nsmitted reference range : 12 - 29 mEq/L. The refe rence range was not used to interpret this result as normal/abnormal . [facility] CenterHepatitis B Surface [id number] 16:14:00 Test Item Value Reference Range Interpretation Comments HBsAg Semi-Quantitative (test code = Negative Negative 5195-3) [facility] CenterType and Screen - ONCE [id number] 12:25:45 Test Item Value Reference Range Interpretation Comments ABO & RH (test code O Positive Performe d at [facility] = 20) Laboratory Serv [facility] Blood Bank1 [address] [place] [address] Free: [phone] A No. [id number] IAT (test code = Negative Performed a t [facility] 1185) Laboratory Serv [facility] Blood [facility]1 [address] [place], [place] [address]Toll Free: [phone] A No. [id number] [facility] CenterHIV 1/2 AG-AB WITH [id number] 12:19:00 Test Item Value Reference Range Interpretation Comments HIV Negative Negative Semi-quantitative (test code = 97779-5) COLLEEN (test code = Non-reactive for HIV-1 COLLEEN) antigen and HIV-1/HIV-2 antibodies. ?No laboratory evidence of HIV infection. ?Repeat in 2-4 weeks if acute HIV infection is suspected. [facility] CenterCBC with [id number] 11:28:00 Test Item Value Reference Range Interpretation Comments WBC (test code = See_Comment H [Automated 0949-2) message] The system which generated this result [...] RDW-SD (test code = 41.6 fL 39-49.9 71957-1) RDW-CV (test code = 14.6 % 12-15.5 788-0) PLT (test code = See_Comment [Automated 777-3) message] The system which generated this result transmit daniel reference range : 166 - 358 10*3/ ?L. The reference range was not u sed to interpret th is result as normal/abnormal . MPV (test code = 10.6 fL 9.5-12.9 02336-8) NRBC/100 WBC (test See_Comment [Automat ed code = 1306890719) message] The system which generated this result transmit daniel reference range : 0.0 - 10.0 /100 WBCs. The reference range was not used to interpret this result as normal/abnormal . NRBC x10^3 (test code <0.01 See_Comment [Auto mated = 3754688024) message] The system which generated this result transmit daniel reference range : 10*3/?L. The reference range was not used to interpret this result as normal/abnormal . GRAN MAT (NEUT) % 73.3 % (test code = 770-8) IMM GRAN % (test code 2.20 % = 2312952803) LYMPH % (test code = 15.2 % 736-9) MONO % (test code = 7.6 % 5905-5) EOS % (test code = 1.2 % 713-8) BASO % (test code = 0.5 % 706-2) GRAN MAT x10^3(ANC) 12.36 10*3/uL 1.88-7.09 H (test code = 7880234877) IMM GRAN x10^3 (test 0.37 10*3/uL 0-0.06 H code = 2448875559) LYMPH x10^3 (test code 2.57 10*3/uL 1.32-3.29 = 731-0) MONO x10^3 (test code 1.28 10*3/uL 0.33-0.92 H = 742-7) EOS x10^3 (test code = 0.20 10*3/uL 0.03-0.39 711-2) BASO x10^3 (test code 0.08 10*3/uL 0.01-0.07 H = 704-7) Lab Interpretation Abnormal (test code = 94910-8) [facility] CenterCOVID-19 (ID NOW RAPID TESTING)2020-08-14 09:59:00 Test Item Value Reference Range Interpretation Comments SARS-CoV-2 Rapid ID NOW Not Detected Not Detected (test code = 96706-3) COLLEEN (test code = CLOLEEN) ID NOW COVID-19 Assay is an isothermal nucleic acid amplification test intended for the qualitative detection of nucleic acid from SARS-CoV-2 viral RNA in nasopharyngeal (PRINTING MACHINE MECHANIC) specimens. It is used under Emergency Use [...] indicated. Lab Interpretation Normal (test code = 21016-7) [facility] CenterAD ONLY - FERN [id number] 09:34:00 Test Item Value Reference Range Interpretation Comments Fern Test (test code = 3907924687) Positive [facility] CenterFETAL NON-STRESS [id number] 19:55:33NST: cat 1, reactive/reassuring, no ctx, +accels, neg decls, moderate variability [facility] URINALYSIS W SPECIFIC [id number] 19:06:00 Test Item Value Reference Range Interpretation [...] POCT U APPEAR (test code = 3267) [facility] URINALYSIS W SPECIFIC [id number] 18:05:00 Test Item Value Reference Range Interpretation [...] POCT U APPEAR (test code = 3267) [facility] URINALYSIS W SPECIFIC [id number] 14:33:00 Test Item Value Reference Range Interpretation [...] POCT U APPEAR (test code = 3267) [facility] URINALYSIS W SPECIFIC [id number] 16:11:00 Test Item Value Reference Range Interpretation [...] POCT U APPEAR (test code = 3267) [facility] URINALYSIS W SPECIFIC [id number] 16:11:00 Test Item Value Reference Range Interpretation [...] POCT U APPEAR (test code = 3267) [facility] URINALYSIS W SPECIFIC [id number] 16:11:00 Test Item Value Reference Range Interpretation [...] POCT U APPEAR (test code = 3267) [facility] URINALYSIS W SPECIFIC [id number] 16:11:00 Test Item Value Reference Range Interpretation [...] POCT U APPEAR (test code = 3267) [facility] URINALYSIS W SPECIFIC [id number] 14:01:00 Test Item Value Reference Range Interpretation [...] POCT U APPEAR (test code = 3267) [facility] URINALYSIS W SPECIFIC [id number] 15:33:00 Test Item Value Reference Range Interpretation [...] POCT U APPEAR (test code = 3267) [facility] URINALYSIS W SPECIFIC [id number] 15:33:00 Test Item Value Reference Range Interpretation [...] POCT U APPEAR (test code = 3267) [facility] URINALYSIS W SPECIFIC [id number] 15:33:00 Test Item Value Reference Range Interpretation [...] POCT U APPEAR (test code = 3267) [facility] URINALYSIS W SPECIFIC [id number] 16:24:00 Test Item Value Reference Range Interpretation [...] POCT U APPEAR (test code = 3267) [facility] URINALYSIS W SPECIFIC [id number] 15:54:00 Test Item Value Reference Range Interpretation [...] POCT U APPEAR (test code = 3267) [facility] URINALYSIS W SPECIFIC [id number] 15:54:00 Test Item Value Reference Range Interpretation [...] POCT U APPEAR (test code = 3267) [facility] URINALYSIS W SPECIFIC [id number] 15:54:00 Test Item Value Reference Range Interpretation [...] POCT U APPEAR (test code = 3267) [facility] URINALYSIS W SPECIFIC [id number] 15:20:00 Test Item Value Reference Range Interpretation [...] POCT U APPEAR (test code = 3267) [facility] URINALYSIS W SPECIFIC [id number] 19:05:00 Test Item Value Reference Range Interpretation [...] POCT U APPEAR (test code = 3267) [facility] URINALYSIS W SPECIFIC [id number] 19:05:00 Test Item Value Reference Range Interpretation [...] POCT U APPEAR (test code = 3267) [facility] [id number] 14:49:00 Test Item Value Reference Range Interpretation Comments POCT PREG (test code = 1605) Positive On board controls acceptable with C Yes Line (test code = 3574) POCT PREG LOT # (test code = 3575) POCT PREG TEST DATE (test code = 3576) [facility] URINALYSIS W/O SPECIFIC [id number] 14:49:00 Test Item Value Reference Range Interpretation [...] code = 3257) Neg Negative - Negative [facility]
--- NOTE | 2022-11-30 23:18 | ER ---
Nurse's Notes [facility] Name: Maricel Nur Age: 27 yrs Sex: Female : 1995 Arrival Date: 11/30/2022 Time: 22:12 Bed Waiting Private MD: Diagnosis: ED Course: 11/30 22:12 Patient arrived in ED. ja2 22:16 Nael Gaines PA is PHCP. cp 22:16 Shad Mendoza MD is Attending Physician. cp 23:16 Patient's name was called from ER Flaviar. No response. Unable to locate patient. Will bb disposition as left without being seen by a provider. Administered Medications: No medications were administered Outcome: 23:17 Patient left the ED. bb Signatures: Hafsa Frias RN RN bb Nael Gaines PA PA cp Alexander, Jessica jaThu
== END 2022-11-30 23:17 | disposition left against medical advice (07) ==
LOC: ER 22:06
DX: Z02.9 Encounter for administrative examinations, unspecified (principal)

== ENCOUNTER 2023-07-01 21:13 | Emergency (ER) | payer OTHER, SELFPAY ==
--- OUTSIDE RECORDS SUMMARY | 2023-07-01 21:20 | XMS REPORT | Continuity of Care Document ---
:1995 Author Organization [facility] t Address [address] [place] [address] Care Team Providers Name Role Phone MALLY HENRY Primary Care Physician Unavailable MALLY HENRY Attending Clinician Unavailable HAFSA SMART Attending Clinician Unavailable Provider, Flako Temp Attending Clinician Unavailable Hafsa Smart CNM Attending Clinician Doctor Unassigned, [place] Attending Clinician Unavailable GIANNI DURAN Attending Clinician Unavailable Gianni Pinedo Attending Clinician Carl Mally BOO Attending Clinician [phone] Hairs PEREZ, Edel Hart Attending Clinician Verito Davis MD, Vonnie Attending Clinician [phone] Juan Francisco Garcia MD Attending Clinician Lab, [facility] Attending Clinician Unavailable Ultrasound, [facility] Attending Clinician Unavailable Jero PEREZ, Joanne Attending Clinician Olivier Jaramillo MD Attending Clinician Ange Weaver MD Attending Clinician Estela Esposito Attending Clinician Unavailable Amy Bartlett MD Attending Clinician Emma Francis Attending Clinician Unavailable Last Lemus MD Attending Clinician AMY BARTLETT Attending Clinician Unavailable AMY BARTLETT Attending Clinician Unavailable [facility], [facility] Attending Clinician Unavailable JUAN FRANCISCO GARCIA Admitting Clinician Unavailable Edel Carballo MD Admitting Clinician Juan Francisco Garcia MD Admitting Clinician Payers Payer Name Policy Type Policy Number Effective Date Expiration Date [facility] [id number] 2020 CHOICE MEDICAID 00:00:00 MEDICAID [facility] [id number] 2019 00:00:00 Problems Condition Condition Condition Status Onset Resolution Last Treating Co mments Source Name Details Category Date Date Treatment Clinician Date Bleeding Bleeding Disease Active Unive rs after after 11-15 ity of [place] e [place] 00 Medical Branch Family Family Disease Active Univers history of history of 11-15 it y of breast breast 00:00: [place] cancer cancer 00 Medical gene gene Branch mutation mutation in first in first degree degree relative relative Family Family Disease Active Univers history of history of 11-15 it y of breast breast 00:00: [place] cancer in cancer in 00 [facility] kavon first first Branch degree degree relative relative S/P tubal S/P tubal Disease Active 2019-10 Uni vers ligation ligation 1- ity of 00:00: [place] [facility] ROM ROM Disease Active 2019-10 Univers (rupture (rupture 0-30 ity of of of 00:00: [place] membranes) membranes) 00 Ks dical , , Branch premature premature Obesity Obesity Disease Active 2019-10 Univers (BMI (BMI 0-30 ity of 30-39.9) 30-39.9) 00:00: [place] 00 Medical Branch Anemia of Anemia of Disease Active 2019-10 Uni vers mother in mother in 0-19 ity of , , 00:[place] antepartum antepartum 00 Ks dical Branch Heartburn Heartburn Disease Active Uni vers in in 9-11 [place] Disease Active Uni vers epistaxis epistaxis 7-14 ity of 00:00: [place] 00 Medical Branch Disease Active 2020-0 Uni vers epistaxis epistaxis 7-14 ity of 00:00: [place] 00 Medical Branch Supervisio Supervisio Disease Active 2020-0 U nivers n of n of 5-18 ity of high-risk high-risk 00:[place] [facility] Multiparit Multiparit Disease Active 2020-0 U nivers y y 5-18 ity of 00:00: [place] 00 Medical Branch History of History of Disease Active 2020-0 U nivers miscarriag miscarriag 5-18 it y of e e 00:00: [place] 00 Medical Branch Depression Depression Disease Active 2020-0 U nivers during during 4-03 it[place] of [place] Generalize Generalize Disease Active 2020-0 U nivers d anxiety d anxiety 4-03 ity of disorder disorder 00:00: [place] 00 Medical Branch Major Major Disease Active 2020-0 Univers depressive depressive 4-03 it y of disorder disorder 00:00: [place] 00 Medical Branch Nausea and Nausea and Disease Active 2020-0 U nivers vomiting vomiting 4-03 ity of during during 00:00: [place] 00 [facility] Rubella Rubella Disease Active 2020-0 Overview: Univ ers non-immune non-immune 3-20 Formattin ity of status, status, 00:00: g of this [place] antepartum antepartum 00 note Me dical might be Branch different from the original. Address pp Supervisio Supervisio Disease Active 2020-0 U nivers n of n of 3-19 ity of high-risk high-risk 00:[place] [facility] Contracept Contracept Disease Active 2019-0 U nivers kelle kelle 4-16 ity of management [place] [address] [facility] Disease Active 2019-0 Univers (spontaneo (spontaneo 3-01 it y of us vaginal us vaginal 00:00: [place] delivery) delivery[place] 00 [facility] Single Single Disease Active 2019-0 Univers live live 3-01 it y of 00:00: [place] [address] 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 04-23 ity of 00:00: [place] [facility] Efrain Efrain Disease Active Univers Wai's Wai's 04-23 ity of syndrome syndrome 00:00: [place] 00 Medical Branch Pain Pain Disease Active Univers pelvic pelvic 7- ity of 00:00: 00 Medical Branch Dysmenorrh Dysmenorrh Disease Active U [...] Stop Date Quantity Comments Source ASSERTION 2019-12-06 [facility] 00:00:00 [facility] Exposure to 2022-12-31 2023-01-10 Not sure [facility] SARS-CoV-2 00:00:00 14:55:00 [facility] (event) Branch Alcohol intake 2023-01-10 2023-01-10 .14 /d [facility] 00:00:00 00:00:00 [facility] Alcohol Comment 2022-11-15 2022-11-15 rarely for cans Univ ersity of 00:00:00 00:00:00 of beer , once a [facility] dical month for wine Branch Tobacco use and 2022-11-15 2022-11-15 Smokeless tobacco Un iversity of exposure 00:00:00 00:00:00 non-user [facility] Education 2020-08-14 2020-08-14 11 University of 00:00:00 00:00:00 [facility] History SDOH 2020-08-14 2020-08-14 4 University o f Financial 00:00:00 00:00:00 [facility] Sex [birth year] At [birth year] Universit y of 00:00:00 00:00:00 [facility] Smoking Status Start Date Stop Date Source Never smoked tobacco [facility] Medications Ordered Filled Start Stop Current Ordering Indication Dosage Frequency Signature Comments Components Source Medication Medication Date Date Medication? Clinician (SIG) Name Name metroNIDAZO 2023- No [id number] 500mg Take 1 Univers LE 500 mg 11-17 tablet by ity of tablet 00:00: 05:59 mouth in [place] 00 :00 the Medical morning Branch and 1 tablet in the evening. Do all this for 7 days. PARoxetine Yes [id number] 40mg Take 40 mg Univers 40 mg 1-31 by mouth ity of tablet 08:46: in the [place] [address] morning. Medical Branch PARoxetine 2022-0 Yes [id number] 40mg Take 40 mg Univers 40 mg 1-31 by mouth ity of tablet 08:46: in the [place] [address] morning. Medical Branch PARoxetine 2022-0 Yes [id number] 40mg Take 40 mg Univers 40 mg 1-31 by mouth ity of tablet 08:46: in the [place] [address] morning. Medical Branch PARoxetine 2022-0 Yes [id number] 40mg Take 40 mg Univers 40 mg 1-31 by mouth ity of tablet 08:46: in the [place] [address] morning. Medical Branch PARoxetine 2022-0 Yes [id number] 40mg Take 40 mg Univers 40 mg 1-31 by mouth ity of tablet 08:46: in the [place] [address] morning. Medical Branch PARoxetine 2022-0 Yes [id number] 40mg Take 40 mg Univers 40 mg 1-31 by mouth ity of tablet 08:46: in the [place] [address] morning. Medical Branch amoxicillin 2022-2022- No 1{capsu Take 1 Univers 500 mg 10-26 le} capsule by ity of capsule 00:00: 00:00 mouth in [place] 00 :00 the Medical morning. Branch amoxicillin 2022-2022- No 1{capsu Take 1 Univers 500 mg 10-26 le} capsule by ity of capsule 00:00: 00:00 mouth in [place] 00 :00 the Medical morning. Branch acetaminoph 2019-10 Yes [id number] 650mg Take 2 Univers en 325 mg 1-02 tablets by ity of tablet 00:00: mouth [place] 00 every 6 Medical (six) Branch hours as needed for Pain (scale 1-3). docusate 2019-10 Yes [id number] 240mg Take 1 U nivers calcium 240 1-02 capsule by it y of mg capsule 00:00: mouth [place] 00 daily as Medical needed for Branch Constipati on. 2019-10 Yes [id number] 1{tbl} Take 1 Univers vitamin 1-02 tablet by ity of w/FA tablet 00:00: mouth [place] 00 daily. Medical Branch ibuprofen 2019-10 Yes [id number] 600mg Take 1 Univers 600 mg 1-02 tablet by ity of tablet 00:00: mouth [place] 00 every 6 Medical (six) Branch hours as needed for Pain (scale 4-6). 2019-10 Yes [id number] 1{tbl} Take 1 Univers vitamin 1-02 tablet by ity of w/FA tablet 00:00: mouth [place] 00 daily. Medical Branch acetaminoph 2019-10 Yes [id number] 650mg Take 2 Univers en 325 mg 1-02 tablets by ity of tablet 00:00: mouth [place] 00 every 6 Medical (six) Branch hours as needed for Pain (scale 1-3). docusate 2019-10 Yes [id number] 240mg Take 1 U nivers calcium 240 1-02 capsule by it y of mg capsule 00:00: mouth [place] 00 daily as Medical needed for Branch Constipati on. 2019-10 Yes [id number] 1{tbl} Take 1 Univers vitamin 1-02 tablet by ity of w/FA tablet 00:00: mouth [place] 00 daily. Medical Branch ibuprofen 2019-10 Yes [id number] 600mg Take 1 Univers 600 mg 1-02 tablet by ity of tablet 00:00: mouth [place] 00 every 6 Medical (six) Branch hours as needed for Pain (scale 4-6). acetaminoph 2019-10 Yes [id number] 650mg Take 2 Univers en 325 mg 1-02 tablets by ity of tablet 00:00: mouth [place] 00 every 6 Medical (six) Branch hours as needed for Pain (scale 1-3). docusate 2019-10 Yes [id number] 240mg Take 1 U nivers calcium 240 1-02 capsule by it y of mg capsule 00:00: mouth [place] 00 daily as Medical needed for Branch Constipati on. 2019-10 Yes [id number] 1{tbl} Take 1 Univers vitamin 1-02 tablet by ity of w/FA tablet 00:00: mouth [place] 00 daily. Medical Branch ibuprofen 2019-10 Yes [id number] 600mg Take 1 Univers 600 mg 1-02 tablet by ity of tablet 00:00: mouth [place] 00 every 6 Medical (six) Branch hours as needed for Pain (scale 4-6). acetaminoph 2019-10 Yes [id number] 650mg Take 2 Univers en 325 mg 1-02 tablets by ity of tablet 00:00: mouth [place] 00 every 6 Medical (six) Branch hours as needed for Pain (scale 1-3). docusate 2019-10 Yes [id number] 240mg Take 1 U nivers calcium 240 1-02 capsule by it y of mg capsule 00:00: mouth [place] 00 daily as Medical needed for Branch Constipati on. 2019-10 Yes [id number] 1{tbl} Take 1 Univers vitamin 1-02 tablet by ity of w/FA tablet 00:00: mouth [place] 00 daily. Medical Branch ibuprofen 2019-10 Yes [id number] 600mg Take 1 Univers 600 mg 1-02 tablet by ity of tablet 00:00: mouth [place] 00 every 6 Medical (six) Branch hours as needed for Pain (scale 4-6). acetaminoph 2019-10 No [id number] 650mg Take 2 Univers en 325 mg 1-02 -31 tablets by ity of tablet 00:00: 00:00 mouth [place] 00 :00 every 6 Medical (six) Branch hours as needed for Pain (scale 1-3). docusate 2019-10- No [id number] 240mg Take 1 Univers calcium 240 1-02 -31 capsule by i ty of mg capsule 00:00: 00:00 mouth once [place] 00 :00 daily as Medical needed for Branch Constipati on. 2019-10- No [id number] 1{tbl} Take 1 Univers vitamin 1-02 -31 tablet by ity of w/FA tablet 00:00: 00:00 [place] :00 daily. Medical Branch ibuprofen 2019-10- No [id number] 600mg Take 1 Univers 600 mg 10-17 tablet by ity of tablet 00:00: 00:00 mouth [place] 00 :00 every 6 Medical (six) Branch hours as needed for Pain (scale 4-6). acetaminoph 2019-10- No [id number] 650mg Take 2 Univers en 325 mg 10-17 tablets by ity of tablet 00:00: 00:00 mouth [place] 00 :00 every 6 Medical (six) Branch hours as needed for Pain (scale 1-3). docusate 2019-10- No [id number] 240mg Take 1 Univers calcium 240 10-17 capsule by i ty of mg capsule 00:00: 00:00 mouth once [place] 00 :00 daily as Medical needed for Branch Constipati on. 2019-10- No [id number] 1{tbl} Take 1 Univers vitamin 10-17 tablet by ity of w/FA tablet 00:00: 00:00 [place] 00 :00 daily. Medical Branch ibuprofen 2019-10- No [id number] 600mg Take 1 Univers 600 mg 10-17 tablet by ity of tablet 00:00: 00:00 mouth [place] 00 :00 every 6 Medical (six) Branch hours as needed for Pain (scale 4-6). measles, 2019-10- No .5mL 0.5 mL, Unive rs mumps + 10-16 Subcutaneo ity o f rubella vac 18:00: 16:57 us, ONCE, [place] (M-M-R II) 00 :00 1 dose, Medica l 1,000-12,50 Sun Branch 0 08/16/20 at TCID50/0.5 1200, mL Routine injection 0.5 mL ferrous 2019-10 Yes [id number] 325mg Take 1 Un clay[place] sulfate 325 10-16 tablet by ity of mg (65 mg 00:00: mouth 2 [place] iron) 00 (two) Medical tablet times Branch daily. docusate 2019-10 Yes [id number] 240mg Take 1 U nivers calcium 240 10-16 capsule by it y of mg capsule 00:00: mouth [place] 00 daily as Medical needed for Branch Constipati on. ibuprofen 2019-10 Yes [id number] 600mg Take 1 Univers 600 mg 1-01 tablet by ity of tablet 00:00: mouth [place] 00 every 6 Medical (six) Branch hours as needed for Pain (scale 4-6). 2019-10 Yes [id number] 1{tbl} Take 1 Univers vitamin 1-01 tablet by ity of w/FA tablet 00:00: mouth [place] 00 daily. Medical Branch docusate 2019-10 Yes [id number] 240mg Take 1 U nivers calcium 240 1-01 capsule by it y of mg capsule 00:00: mouth once [place] 00 daily as Medical needed for Branch Constipati on. ferrous 2019-10 Yes [id number] 325mg Take 1 Un clay[place] sulfate 325 1-01 tablet by ity of mg (65 mg 00:00: mouth 2 [place] iron) 00 (two) Medical tablet times Branch daily. ibuprofen 2019-10 Yes [id number] 600mg Take 1 Univers 600 mg 1-01 tablet by ity of tablet 00:00: mouth [place] 00 every 6 Medical (six) Branch hours as needed (Pain). Take with food or milk. ferrous 2019-10 Yes [id number] 325mg Take 1 Un clay[place] sulfate 325 1-01 tablet by ity of mg (65 mg 00:00: mouth 2 [place] iron) 00 (two) Medical tablet times Branch daily. ferrous 2019-10 Yes [id number] 325mg Take 1 Un clay[place] sulfate 325 1-01 tablet by ity of mg (65 mg 00:00: mouth 2 [place] iron) 00 (two) Medical tablet times Branch daily. ferrous 2019-10 Yes [id number] 325mg Take 1 Un [place] sulfate 325 1-01 tablet by ity of mg (65 mg 00:00: mouth 2 [place] iron) 00 (two) Medical tablet times Branch daily. ferrous 2019-10- No [id number] 325mg Take 1 U nivers sulfate 325 -01 -31 tablet by it y of mg (65 mg 00:00: 00:00 mouth 2 [place] iron) 00 :00 (two) Medical tablet times Branch daily. ferrous 2019-10 No [id number] 325mg Take 1 U nivers sulfate 325 1-01 -31 tablet by it y of mg (65 mg 00:00: 00:00 mouth 2 [place] iron) 00 :00 (two) Medical tablet times Branch daily. acetaminoph 2019-10- No [id number] 650mg Take 2 Univers en 325 mg 10-16 tablets by ity of tablet 00:00: 04:59 mouth [place] 00 :00 every 6 Medical (six) Branch hours as needed for Pain (scale 1-3). measles, 2019-10 2020- No [id number] .5mL inject 0.5 Univers mumps + 10-16 [...] of lana acid 13:15: 13:32 ONCE, 1 [place] (BICITRA) 00 :00 dose, Sat Medic al [...] 25 mg, IV U nivers MINE-0.9 % 0-31 Piggyback, ity of sod.chlr 03:12: Q6HPRN, [place] (BENADRYL) 19 Starting Medic al 25 mg/50 mL Fri Branch piggyback 08/14/20 25 mg at 2211, Until Discontinu ed, 50 mL ondansetron 2019-10 Yes 4mg 4 mg, Slow Univers (ZOFRAN 0-31 IV Push, ity of (PF)) 03:12: Q8HPRN, [place] injection 4 19 Starting Medi kavon mg [...] Yes 240mg 240 mg, Unive rs calcium 0- Oral, ity of (SURFAK) 03:12: QDAILYPRN, [place] [...] 0-31 Oral, ity of (TYLENOL) 03:12: Q6HPRN, [place] tablet 650 18 Starting Medic al mg [...] 30 Fri mL 08/14/20 at 1255, Until Mon08/14/20 at 1331, Routine, Surgery/Pr ocedure lactated 2019-10- No 500mL at 999 Unive rs ringers IV 0-30 10-30 mL/hr, 500 it y of infusion 17:55: 18:31 mL, IV [place] 500 mL 09 :00 Infusion, Medical PRN - SEE Branch INSTRUCTIO NS, 1 dose, Starting 08/14/20 at 1255, Until 08/14/20 at 1331, Routine terbutaline 2019-10- No .25mg 0.25 mg, Univers (BRETHINE) 0-30 10-30 Subcutaneo it y of injection 13:09: 13:11 , ONCE, [place] 0.25 mg 00 :00 1 dose, Medical Fri Branch 08/14/20 at 0815, Routine D5W-LR IV 2019-10 2020- No 1000mL at 125 Uni vers infusion [...] Mon08/14/20 at 2212, VEENA ascorbic 2019-10 Yes [id number] 500mg Take 1 U nivers acid, 0-19 tablet by ity of vitamin C, 00:00: mouth 3 [place] 500 mg 00 (three) Medical tablet times Branch daily. ferrous 2019-10 Yes [id number] 325mg Take 1 Un clay[place] sulfate 325 0-19 tablet by ity of mg (65 mg 00:00: mouth 2 [place] iron) 00 (two) Medical tablet times Branch daily. ascorbic 2019-10 Yes [id number] 500mg Take 1 U nivers acid, 0-19 tablet by ity of vitamin C, 00:00: mouth 3 [place] 500 mg 00 (three) Medical tablet times Branch daily. ferrous 2019-10 Yes [id number] 325mg Take 1 Un [place] sulfate 325 0-19 tablet by ity of mg (65 mg 00:00: mouth 2 [place] iron) 00 (two) Medical tablet times Branch daily. ascorbic 2019-10 Yes [id number] 500mg Take 1 U nivers acid, 0-19 tablet by ity of vitamin C, 00:00: mouth 3 [place] 500 mg 00 (three) Medical tablet times Branch daily. ferrous 2019-10 Yes [id number] 325mg Take 1 Un [place] sulfate 325 0-19 tablet by ity of mg (65 mg 00:00: mouth 2 [place] iron) 00 (two) Medical tablet times Branch daily. ascorbic 2019- Yes [id number] 500mg Take 1 U nivers acid, 0-19 tablet by ity of vitamin C, 00:00: mouth 3 [place] 500 mg 00 (three) Medical tablet times Branch daily. ferrous 2019- Yes [id number] 325mg Take 1 Un [place] sulfate 325 0-19 tablet by ity of mg (65 mg 00:00: mouth 2 [place] iron) 00 (two) Medical tablet times Branch daily. ascorbic 2019- Yes [id number] 500mg Take 1 U nivers acid, 0-19 tablet by ity of vitamin C, 00:00: mouth 3 [place] 500 mg 00 (three) Medical tablet times Branch daily. ferrous 2019- Yes [id number] 325mg Take 1 Un [place] sulfate 325 0-19 tablet by ity of mg (65 mg 00:00: mouth 2 [place] iron) 00 (two) Medical tablet times Branch daily. ascorbic 2019-10 2020- No [id number] 500mg Take 1 Univers acid, 0-19 - tablet by ity of vitamin C, 00:00: 00:00 mouth 3 [place] 500 mg 00 :00 (three) Medical tablet times Branch daily. ferrous 2019-10 2020- No [id number] 325mg Take 1 U nivers sulfate 325 0-19 11-01 tablet by it y of mg (65 mg 00:00: 00:00 mouth 2 [place] iron) 00 :00 (two) Medical tablet times Branch daily. SERTraline 2020-0 Yes [id number] 50mg Take 1 U nivers (ZOLOFT) 50 4-06 tablet by ity of mg tablet 00:00: mouth [place] 00 daily. Medical Branch SERTraline 2020-0 Yes [id number] 50mg Take 1 U nivers (ZOLOFT) 50 4-06 tablet by ity of mg tablet 00:00: mouth [place] 00 daily. Medical Branch SERTraline 2020-0 Yes [id number] 50mg Take 1 U nivers (ZOLOFT) 50 4-06 tablet by ity of mg tablet 00:00: mouth [place] 00 daily. Medical Branch SERTraline 2020-0 Yes [id number] 50mg Take 1 U nivers (ZOLOFT) 50 4-06 tablet by ity of mg tablet 00:00: mouth [place] 00 daily. Medical Branch SERTraline 2020-0 Yes [id number] 50mg Take 1 U nivers (ZOLOFT) 50 4-06 tablet by ity of mg tablet 00:00: mouth [place] 00 daily. Medical Branch SERTraline 2020-0 Yes [id number] 50mg Take 1 U nivers (ZOLOFT) 50 4-06 tablet by ity of mg tablet 00:00: mouth [place] 00 daily. Medical Branch SERTraline 2020-0 Yes [id number] 50mg Take 1 U nivers (ZOLOFT) 50 4-06 tablet by ity of mg tablet 00:00: mouth [place] 00 daily. Medical Branch SERTraline 2019-0 Yes [id number] 50mg Take 1 U nivers (ZOLOFT) 50 4-06 tablet by ity of mg tablet 00:00: mouth [place] 00 daily. Medical Branch SERTraline 2020-0 Yes [id number] 50mg Take 1 U nivers (ZOLOFT) 50 4-06 tablet by ity of mg tablet 00:00: mouth [place] 00 daily. Medical Branch SERTraline 2020-0 Yes [id number] 50mg Take 1 U nivers (ZOLOFT) 50 4-06 tablet by ity of mg tablet 00:00: mouth [place] 00 daily. Medical Branch SERTraline 2019-0 Yes [id number] 50mg Take 1 U nivers (ZOLOFT) 50 4-06 tablet by ity of mg tablet 00:00: mouth [place] 00 daily. Medical Branch SERTraline 2020-0 Yes [id number] 50mg Take 1 U nivers (ZOLOFT) 50 4-06 tablet by ity of mg tablet 00:00: mouth [place] 00 daily. Medical Branch SERTraline 2020-0 Yes [id number] 50mg Take 1 U nivers (ZOLOFT) 50 4-06 tablet by ity of mg tablet 00:00: mouth [place] 00 daily. [facility] Branch SERTraline 2020-0 Yes [id number] 50mg Take 1 U nivers (ZOLOFT) 50 4-06 tablet by ity of mg tablet 00:00: mouth [place] 00 daily. [facility] Branch SERTraline 2020-0 Yes [id number] 50mg Take 1 U nivers (ZOLOFT) 50 4-06 tablet by ity of mg tablet 00:00: mouth [place] 00 daily. Medical Branch SERTraline 2020-0 Yes [id number] 50mg Take 1 U nivers (ZOLOFT) 50 4-06 tablet by ity of mg tablet 00:00: mouth [place] 00 daily. Medical Branch SERTraline 2020-0 Yes [id number] 50mg Take 1 U nivers (ZOLOFT) 50 4-06 tablet by ity of mg tablet 00:00: mouth [place] 00 daily. Medical Branch SERTraline 2020-0 Yes [id number] 50mg Take 1 U nivers (ZOLOFT) 50 4-06 tablet by ity of mg tablet 00:00: mouth [place] 00 daily. Medical Branch SERTraline 2020-0 Yes [id number] 50mg Take 1 U nivers (ZOLOFT) 50 4-06 tablet by ity of mg tablet 00:00: mouth [place] 00 daily. Medical Branch SERTraline 2019-0 Yes [id number] 50mg Take 1 U nivers (ZOLOFT) 50 4-06 tablet by ity of mg tablet 00:00: mouth [place] 00 daily. Medical Branch SERTraline 2020-0 Yes [id number] 50mg Take 1 U nivers (ZOLOFT) 50 4-06 tablet by ity of mg tablet 00:00: mouth [place] 00 daily. Medical Branch SERTraline 2019-0 Yes [id number] 50mg Take 1 U nivers (ZOLOFT) 50 4-06 tablet by ity of mg tablet 00:00: mouth [place] 00 daily. Medical Branch SERTraline 2019-0 Yes [id number] 50mg Take 1 U nivers (ZOLOFT) 50 4-06 tablet by ity of mg tablet 00:00: mouth [place] 00 daily. Medical Branch SERTraline 2020-0 Yes [id number] 50mg Take 1 U nivers (ZOLOFT) 50 4-06 tablet by ity of mg tablet 00:00: mouth [place] 00 daily. Medical Branch SERTraline 2020-0 Yes [id number] 50mg Take 1 U nivers (ZOLOFT) 50 4-06 tablet by ity of mg tablet 00:00: mouth [place] 00 daily. [facility] Branch SERTraline 2020-0 Yes [id number] 50mg Take 1 U nivers (ZOLOFT) 50 4-06 tablet by ity of mg tablet 00:00: mouth [place] 00 daily. Medical Branch SERTraline 2020-0 Yes [id number] 50mg Take 1 U nivers (ZOLOFT) 50 4-06 tablet by ity of mg tablet 00:00: mouth [place] 00 daily. Medical Branch SERTraline 2020-0 Yes [id number] 50mg Take 1 U nivers (ZOLOFT) 50 4-06 tablet by ity of mg tablet 00:00: mouth [place] 00 daily. Medical Branch SERTraline 2020-0 Yes [id number] 50mg Take 1 U nivers (ZOLOFT) 50 4-06 tablet by ity of mg tablet 00:00: mouth [place] 00 daily. Medical Branch SERTraline 2019-0 Yes [id number] 50mg Take 1 U nivers (ZOLOFT) 50 4-06 tablet by ity of mg tablet 00:00: mouth [place] 00 daily. Medical Branch SERTraline 2019-0 Yes [id number] 50mg Take 1 U nivers (ZOLOFT) 50 4-06 tablet by ity of mg tablet 00:00: mouth [place] 00 daily. Medical Branch SERTraline 2019-0 Yes [id number] 50mg Take 1 U nivers (ZOLOFT) 50 4-06 tablet by ity of mg tablet 00:00: mouth [place] 00 daily. Medical Branch SERTraline 2019-0 Yes [id number] 50mg Take 1 U nivers (ZOLOFT) 50 4-06 tablet by ity of mg tablet 00:00: mouth [place] 00 daily. Medical Branch SERTraline 2019-0 Yes [id number] 50mg Take 1 U nivers (ZOLOFT) 50 4-06 tablet by ity of mg tablet 00:00: mouth [place] 00 daily. Medical Branch SERTraline 2020-0 Yes [id number] 50mg Take 1 U nivers (ZOLOFT) 50 4-06 tablet by ity of mg tablet 00:00: mouth [place] 00 daily. Medical Branch SERTraline 2019-0 Yes [id number] 50mg Take 1 U nivers (ZOLOFT) 50 4-06 tablet by ity of mg tablet 00:00: mouth [place] 00 daily. Medical Branch SERTraline 2020-0 Yes [id number] 50mg Take 1 U nivers (ZOLOFT) 50 4-06 tablet by ity of mg tablet 00:00: mouth [place] 00 daily. Medical Branch SERTraline 2020-0 Yes [id number] 50mg Take 1 U nivers (ZOLOFT) 50 4-06 tablet by ity of mg tablet 00:00: mouth [place] 00 daily. Medical Branch SERTraline 2020-0 Yes [id number] 50mg Take 1 U nivers (ZOLOFT) 50 4-06 tablet by ity of mg tablet 00:00: mouth [place] 00 daily. Medical Branch SERTraline 2020-0 Yes [id number] 50mg Take 1 [facility] (ZOLOFT) 50 4-06 tablet by ity of mg tablet 00:00: mouth [place] 00 daily. [facility] SERTraline 2020-0 Yes [id number] 50mg Take 1 [facility] (ZOLOFT) 50 4-06 tablet by ity of mg tablet 00:00: mouth [place] 00 daily. [facility] SERTraline 2020-0 Yes [id number] 50mg Take 1 [facility] (ZOLOFT) 50 4-06 tablet by ity of mg tablet 00:00: mouth [place] 00 daily. [facility] SERTraline 2020-0 Yes [id number] 50mg Take 1 [facility] (ZOLOFT) 50 4-06 tablet by ity of mg tablet 00:00: mouth [place] 00 daily. [facility] SERTraline 2020-0 Yes [id number] 50mg Take 1 [facility] (ZOLOFT) 50 4-06 tablet by ity of mg tablet 00:00: mouth [place] 00 daily. [facility] SERTraline 2019-0 Yes [id number] 50mg Take 1 [facility] (ZOLOFT) 50 4-06 tablet by ity of mg tablet 00:00: mouth [place] 00 daily. [facility] SERTraline 2020-0 Yes [id number] 50mg Take 1 [facility] (ZOLOFT) 50 4-06 tablet by ity of mg tablet 00:00: mouth [place] 00 daily. [facility] SERTraline 2020-0 Yes [id number] 50mg Take 1 [facility] ([facility]OLOFT) 50 4-06 tablet by ity of mg tablet 00:00: mouth [place] 00 daily. [facility] SERTraline 2020-0 Yes [id number] 50mg Take 1 [facility] (ZOLOFT) 50 4-06 tablet by ity of mg tablet 00:00: mouth [place] 00 daily. [facility] SERTraline 2020-0 Yes [id number] 50mg Take 1 [facility] (ZOLOFT) 50 4-06 tablet by ity of mg tablet 00:00: mouth [place] 00 daily. [facility] SERTraline 2020-0 2023- No [id number] 50mg Take 1 [facility] (ZOLOFT) 50 431 tablet by it y of mg tablet 00:00: 00:00 mouth [place] 00 :00 daily. [facility] SERTraline 2022- No [id number] 50mg Take 1 [facility] (ZOLOFT) 50 431 tablet by it y of mg tablet 00:00: 00:00 mouth [place] 00 :00 daily. [facility] proMETHazin 2020-0 Yes [id number] 25mg Take 1 [facility] e 25 mg 3-19 tablet by ity of tablet 00:00: mouth [place] 00 every 6 Medical (six) Branch hours as needed for Nausea and Vomiting (N/V). proMETHazin 2020-0 Yes [id number] 25mg Take 1 [facility] e 25 mg 3-19 tablet by ity of tablet 00:00: mouth [place] 00 every 6 Medical (six) Branch hours as needed for Nausea and Vomiting (N/V). proMETHazin 2020-0 Yes [id number] 25mg Take 1 [facility] e 25 mg 3-19 tablet by ity of tablet 00:00: mouth [place] 00 every 6 Medical (six) Branch hours as needed for Nausea and Vomiting (N/V). proMETHazin 2020-0 Yes [id number] 25mg Take 1 [facility] e 25 mg 3-19 tablet by ity of tablet 00:00: mouth [place] 00 every 6 Medical (six) Branch hours as needed for Nausea and Vomiting (N/V). proMETHazin 2020-0 Yes [id number] 25mg Take 1 [facility] e 25 mg 3-19 tablet by ity of tablet 00:00: mouth [place] 00 every 6 Medical (six) Branch hours as needed for Nausea and Vomiting (N/V). proMETHazin 2020-0 Yes [id number] 25mg Take 1 [facility] e 25 mg 3-19 tablet by ity of tablet 00:00: mouth [place] 00 every 6 Medical (six) Branch hours as needed for Nausea and Vomiting (N/V). proMETHazin 2020-0 Yes [id number] 25mg Take 1 [facility] e 25 mg 3-19 tablet by ity of tablet 00:00: mouth [place] 00 every 6 Medical (six) Branch hours as needed for Nausea and Vomiting (N/V). proMETHazin 2020-0 Yes [id number] 25mg Take 1 [facility] e 25 mg 3-19 tablet by ity of tablet 00:00: mouth [place] 00 every 6 Medical (six) Branch hours as needed for Nausea and Vomiting (N/V). proMETHazin 2020-0 Yes [id number] 25mg Take 1 [facility] e 25 mg 3-19 tablet by ity of tablet 00:00: mouth [place] 00 every 6 Medical (six) Branch hours as needed for Nausea and Vomiting (N/V). proMETHazin 2020-0 Yes [id number] 25mg Take 1 [facility] 25 mg 3-19 tablet by ity of tablet 00:00: mouth [place] 00 every 6 Medical (six) Branch hours as needed for Nausea and Vomiting (N/V). proMETHazin 2020-0 Yes [id number] 25mg Take 1 [facility] e 25 mg 3-19 tablet by ity of tablet 00:00: mouth [place] 00 every 6 Medical (six) Branch hours as needed for Nausea and Vomiting (N/V). proMETHazin 2020-0 Yes [id number] 25mg Take 1 [facility] 25 mg 3-19 tablet by ity of tablet 00:00: mouth [place] 00 every 6 Medical (six) Branch hours as needed for Nausea and Vomiting (N/V). proMETHazin 2020-0 Yes [id number] 25mg Take 1 [facility] e 25 mg 3-19 tablet by ity of tablet 00:00: mouth [place] 00 every 6 Medical (six) Branch hours as needed for Nausea and Vomiting (N/V). proMETHazin 2020-0 Yes [id number] 25mg Take 1 [facility] 25 mg 3-19 tablet by ity of tablet 00:00: mouth [place] 00 every 6 Medical (six) Branch hours as needed for Nausea and Vomiting (N/V). proMETHazin 2020-0 Yes [id number] 25mg Take 1 [facility] e 25 mg 3-19 tablet by ity of tablet 00:00: mouth [place] 00 every 6 Medical (six) Branch hours as needed for Nausea and Vomiting (N/V). proMETHazin 2020-0 Yes [id number] 25mg Take 1 [facility] 25 mg 3-19 tablet by ity of tablet 00:00: mouth [place] 00 every 6 Medical (six) Branch hours as needed for Nausea and Vomiting (N/V). proMETHazin 2020-0 Yes [id number] 25mg Take 1 [facility] 25 mg 3-19 tablet by ity of tablet 00:00: mouth [place] 00 every 6 Medical (six) Branch hours as needed for Nausea and Vomiting (N/V). proMETHazin 2020-0 Yes [id number] 25mg Take 1 [facility] 25 mg 3-19 tablet by ity of tablet 00:00: mouth [place] 00 every 6 Medical (six) Branch hours as needed for Nausea and Vomiting (N/V). proMETHazin 2020-0 Yes [id number] 25mg Take 1 [facility] 25 mg 3-19 tablet by ity of tablet 00:00: mouth [place] 00 every 6 Medical (six) Branch hours as needed for Nausea and Vomiting (N/V). proMETHazin 2020-0 Yes [id number] 25mg Take 1 [facility] 25 mg 3-19 tablet by ity of tablet 00:00: mouth [place] 00 every 6 Medical (six) Branch hours as needed for Nausea and Vomiting (N/V). proMETHazin 2020-0 Yes [id number] 25mg Take 1 [facility] e 25 mg 3-19 tablet by ity of tablet 00:00: mouth [place] 00 every 6 Medical (six) Branch hours as needed for Nausea and Vomiting (N/V). proMETHazin 2020-0 Yes [id number] 25mg Take 1 [facility] e 25 mg 3-19 tablet by ity of tablet 00:00: mouth [place] 00 every 6 Medical (six) Branch hours as needed for Nausea and Vomiting (N/V). proMETHazin 2020-0 Yes [id number] 25mg Take 1 [facility] 25 mg 3-19 tablet by ity of tablet 00:00: mouth [place] 00 every 6 Medical (six) Branch hours as needed for Nausea and Vomiting (N/V). proMETHazin 2020-0 Yes [id number] 25mg Take 1 [facility] e 25 mg 3-19 tablet by ity of tablet 00:00: mouth [place] 00 every 6 Medical (six) Branch hours as needed for Nausea and Vomiting (N/V). proMETHazin 2020-0 Yes [id number] 25mg Take 1 [facility] e 25 mg 3-19 tablet by ity of tablet 00:00: mouth [place] 00 every 6 Medical (six) Branch hours as needed for Nausea and Vomiting (N/V). proMETHazin 2020-0 Yes [id number] 25mg Take 1 [facility] e 25 mg 3-19 tablet by ity of tablet 00:00: mouth [place] 00 every 6 Medical (six) Branch hours as needed for Nausea and Vomiting (N/V). proMETHazin 2020-0 Yes [id number] 25mg Take 1 [facility] 25 mg 3-19 tablet by ity of tablet 00:00: mouth [place] 00 every 6 Medical (six) Branch hours as needed for Nausea and Vomiting (N/V). proMETHazin 2020-0 Yes [id number] 25mg Take 1 [facility] e 25 mg 3-19 tablet by ity of tablet 00:00: mouth [place] 00 every 6 Medical (six) Branch hours as needed for Nausea and Vomiting (N/V). proMETHazin 2020-0 Yes [id number] 25mg Take 1 [facility] e 25 mg 3-19 tablet by ity of tablet 00:00: mouth [place] 00 every 6 Medical (six) Branch hours as needed for Nausea and Vomiting (N/V). proMETHazin 2020-0 Yes [id number] 25mg Take 1 [facility] e 25 mg 3-19 tablet by ity of tablet 00:00: mouth [place] 00 every 6 Medical (six) Branch hours as needed for Nausea and Vomiting (N/V). proMETHazin 2020-0 Yes [id number] 25mg Take 1 [facility] e 25 mg 3-19 tablet by ity of tablet 00:00: mouth [place] 00 every 6 Medical (six) Branch hours as needed for Nausea and Vomiting (N/V). proMETHazin 2020-0 Yes [id number] 25mg Take 1 [facility] e 25 mg 3-19 tablet by ity of tablet 00:00: mouth [place] 00 every 6 Medical (six) Branch hours as needed for Nausea and Vomiting (N/V). proMETHazin 2020-0 Yes [id number] 25mg Take 1 [facility] e 25 mg 3-19 tablet by ity of tablet 00:00: mouth [place] 00 every 6 Medical (six) Branch hours as needed for Nausea and Vomiting (N/V). proMETHazin 2020-0 Yes [id number] 25mg Take 1 [facility] e 25 mg 3-19 tablet by ity of tablet 00:00: mouth [place] 00 every 6 Medical (six) Branch hours as needed for Nausea and Vomiting (N/V). proMETHazin 2020-0 Yes [id number] 25mg Take 1 [facility] e 25 mg 3-19 tablet by ity of tablet 00:00: mouth [place] 00 every 6 Medical (six) Branch hours as needed for Nausea and Vomiting (N/V). proMETHazin 2020-0 Yes [id number] 25mg Take 1 [facility] e 25 mg 3-19 tablet by ity of tablet 00:00: mouth [place] 00 every 6 Medical (six) Branch hours as needed for Nausea and Vomiting (N/V). proMETHazin 2020-0 Yes [id number] 25mg Take 1 [facility] e 25 mg 3-19 tablet by ity of tablet 00:00: mouth [place] 00 every 6 Medical (six) Branch hours as needed for Nausea and Vomiting (N/V). proMETHazin 2020-0 Yes [id number] 25mg Take 1 [facility] e 25 mg 3-19 tablet by ity of tablet 00:00: mouth [place] 00 every 6 Medical (six) Branch hours as needed for Nausea and Vomiting (N/V). proMETHazin 2020-0 Yes [id number] 25mg Take 1 Univers e 25 mg 3-19 tablet by ity of tablet 00:00: mouth [place] 00 every 6 Medical (six) Branch hours as needed for Nausea and Vomiting (N/V). proMETHazin 2020-0 Yes [id number] 25mg Take 1 [facility] e 25 mg 3-19 tablet by ity of tablet 00:00: mouth [place] 00 every 6 Medical (six) Branch hours as needed for Nausea and Vomiting (N/V). proMETHazin 2020-0 Yes [id number] 25mg Take 1 [facility] e 25 mg 3-19 tablet by ity of tablet 00:00: mouth [place] 00 every 6 Medical (six) Branch hours as needed for Nausea and Vomiting (N/V). proMETHazin 2020-0 Yes [id number] 25mg Take 1 [facility] e 25 mg 3-19 tablet by ity of tablet 00:00: mouth [place] 00 every 6 Medical (six) Branch hours as needed for Nausea and Vomiting (N/V). proMETHazin 2020-0 Yes [id number] 25mg Take 1 [facility] e 25 mg 3-19 tablet by ity of tablet 00:00: mouth [place] 00 every 6 Medical (six) Branch hours as needed for Nausea and Vomiting (N/V). proMETHazin 2020-0 Yes [id number] 25mg Take 1 [facility] e 25 mg 3-19 tablet by ity of tablet 00:00: mouth [place] 00 every 6 Medical (six) Branch hours as needed for Nausea and Vomiting (N/V). proMETHazin 2020-0 Yes [id number] 25mg Take 1 [facility] e 25 mg 3-19 tablet by ity of tablet 00:00: mouth [place] 00 every 6 Medical (six) Branch hours as needed for Nausea and Vomiting (N/V). proMETHazin 2020- No [id number] 25mg Take 1 Univers e 25 mg 3-19 08-16 tablet by ity of tablet 00:00: 00:00 mouth [place] 00 :00 every 6 Medical (six) Branch hours as needed for Nausea and Vomiting (N/V). No known No [facility] medications ity of [facility] Immunizations Ordered Filled Immunization Date Status Comments [facility] e Immunization Name Name SARS-COV-2 COVID-19 2021-04-14 Completed Unive rsity of VACCINE - (MODERNA) 00:00:00 [facility] SARS-COV-2 COVID-19 2021-04-14 Completed Unive rsity of VACCINE - (MODERNA) 00:00:00 [facility] SARS-COV-2 COVID-19 2021-04-14 Completed Unive rsity of VACCINE - (MODERNA) 00:00:00 [facility] SARS-COV-2 COVID-19 2021-04-14 Completed Unive rsity of VACCINE - (MODERNA) 00:00:00 [facility] SARS-COV-2 COVID-19 2021-04-14 Completed Unive rsity of VACCINE - (MODERNA) 00:00:00 [facility] SARS-COV-2 COVID-19 2021-04-14 Completed Unive rsity of VACCINE - (MODERNA) 00:00:00 [facility] SARS-COV-2 COVID-19 2021-03-17 Completed Unive rsity of VACCINE - (MODERNA) 00:00:00 [facility] SARS-COV-2 COVID-19 2021-03-17 Completed Unive rsity of VACCINE - (MODERNA) 00:00:00 [facility] SARS-COV-2 COVID-19 2021-03-17 Completed Unive rsity of VACCINE - (MODERNA) 00:00:00 [facility] SARS-COV-2 COVID-19 2021-03-17 Completed Unive rsity of VACCINE - (MODERNA) 00:00:00 [facility] SARS-COV-2 COVID-19 2021-03-17 Completed Unive rsity of VACCINE - (MODERNA) 00:00:00 [facility] SARS-COV-2 COVID-19 2021-03-17 Completed Unive rsity of VACCINE - (MODERNA) 00:00:00 [facility] MMR 2020-08-16 Completed University of 00:00:00 [facility] MMR 2020-08-16 Completed University of 00:00:00 [facility] MMR 2020-08-16 Completed University of 00:00:00 [facility] MMR 2020-08-16 Completed University of 00:00:00 [facility] MMR 2020-08-16 Completed University of 00:00:00 [facility] MMR 2020-08-16 Completed University of 00:00:00 [facility] MMR 2020-08-16 Completed University of 00:00:00 [facility] MMR 2020-08-16 Completed University of 00:00:00 [facility] MMR 2020-08-16 Completed University of 00:00:00 [facility] MMR 2020-08-16 Completed University of 00:00:00 [facility] Influenza Virus 2020-01-02 Completed Universit y of [facility] .5 mL 00:00:00 [place] [facility] 6+ MO Branch Influenza Virus 2020-01-02 Completed Universit y of [facility] .5 mL 00:00:00 [place] [facility] 6+ MO Branch Influenza Virus 2020-01-02 Completed Universit y of [facility] .5 mL 00:00:00 [place] [facility] IM 6+ MO Branch Influenza Virus 2020-01-02 Completed Universit y of [facility] .5 mL 00:00:00 [place] [facility] IM 6+ MO Branch Influenza Virus [...] y of [facility] .5 mL 00:00:00 [place] [facility] IM 6+ MO Branch Influenza Virus [...] y of [facility] .5 mL 00:00:00 [place] [facility] 6+ MO Branch Tdap 2018-10-18 Completed University of 00:00:00 [place] [facility] [place] TDAP 2018-10-18 Completed University of 00:00:00 [place] [facility] TDAP 2018-10-18 Completed University of 00:00:00 [place] [facility] TDAP 2018-10-18 Completed University of 00:00:00 [place] [facility] TDAP 2018-10-18 Completed University of 00:00:00 [place] [facility] TDAP 2018-10-18 Completed University of 00:00:00 [place] [facility] TDAP 2018-10-18 Completed University of 00:00:00 [place] [facility] [place] Tdap 2018-10-18 Completed University of 00:00:00 [facility] [place] TDAP 2018-10-18 Completed University of 00:00:00 [facility] Tdap 2018-10-18 Completed University of 00:00:00 [place] [facility] Tdap 2018-10-18 Completed University of 00:00:00 [place] [facility] Tdap 2018-10-18 Completed University of 00:00:00 [place] [facility] Tdap 2018-10-18 Completed University of 00:00:00 [place] [facility] Tdap 2018-10-18 Completed University of 00:00:00 [place] [facility] Tdap 2018-10-18 Completed University of 00:00:00 [place] [facility] Tdap 2018-10-18 Completed University of 00:00:00 [place] [facility] Tdap 2018-10-18 Completed University of 00:00:00 [place] [facility] Tdap 2018-10-18 Completed University of 00:00:00 [place] [facility] Tdap 2018-10-18 Completed University of 00:00:00 [place] [facility] Tdap 2018-10-18 Completed University of 00:00:00 [place] [facility] Tdap 2018-10-18 Completed University of 00:00:00 [place] [facility] Tdap 2018-10-18 Completed University of 00:00:00 [place] [facility] Tdap 2018-10-18 Completed University of 00:00:00 [place] [facility] TDAP 2018-10-18 Completed University of 00:00:00 [place] [facility] TDAP 2018-10-18 Completed University of 00:00:00 [place] [facility] TDAP 2018-10-18 Completed University of 00:00:00 [place] [facility] TDAP 2018-10-18 Completed University of 00:00:00 [place] [facility] TDAP 2018-10-18 Completed University of 00:00:00 [place] [facility] Tdap 2018-10-18 Completed University of 00:00:00 [place] [facility] TDAP 2018-10-18 Completed University of 00:00:00 [place] [facility] TDAP 2018-10-18 Completed University of 00:00:00 [place] [facility] TDAP 2018-10-18 Completed University of 00:00:00 [place] [facility] TDAP 2018-10-18 Completed University of 00:00:00 [place] [facility] TDAP 2018-10-18 Completed University of 00:00:00 [place] [facility] TDAP 2018-10-18 Completed University of 00:00:00 [place] [facility] TDAP 2018-10-18 Completed University of 00:00:00 [place] [facility] TDAP 2018-10-18 Completed University of 00:00:00 [place] [facility] TDAP 2018-10-18 Completed University of 00:00:00 [place] [facility] TDAP 2018-10-18 Completed University of 00:00:00 [place] [facility] TDAP 2018-10-18 Completed University of 00:00:00 [place] [facility] TDAP 2018-10-18 Completed University of 00:00:00 [facility] TDAP 2018-10-18 Completed University of 00:00:00 [facility] Branch TDAP 2018-10-18 Completed University of 00:00:00 [place] [facility] TDAP 2018-10-18 Completed University of 00:00:00 [facility] Branch TDAP 2018-10-18 Completed University of 00:00:00 [facility] Branch TDAP 2018-10-18 Completed University of 00:00:00 [place] [facility] TDAP 2018-10-18 Completed University of 00:00:00 [facility] TDAP 2018-10-18 Completed University of 00:00:00 [facility] Tdap 2018-10-18 Completed University of 00:00:00 [facility] TDAP 2018-10-18 Completed University of 00:00:00 [facility] TDAP 2018-10-18 Completed University of 00:00:00 [facility] TDAP 2018-10-18 Completed University of 00:00:00 [facility] TDAP 2018-10-18 Completed University of 00:00:00 [facility] Branch Tdap 2018-10-18 Completed University of 00:00:00 [facility] TDAP 2018-10-18 Completed University of 00:00:00 [facility] TDAP 2018-10-18 Completed University of 00:00:00 [facility] TDAP 2018-10-18 Completed University of 00:00:00 [facility] Influenza Virus 2018-08-20 Completed Universit y of [facility] IM 00:00:00 [place] [facility] Multi-dose 6+ MO Branch Influenza Virus 2018-08-20 Completed Universit y of [facility] IM 00:00:00 [place] [facility] Multi-dose 6+ MO Branch Influenza Virus 2018-08-20 Completed Universit y of [facility] IM 00:00:00 [place] [facility] Multi-dose 6+ MO Branch Influenza Virus 2018-08-20 Completed Universit y of [facility] IM 00:00:00 [place] [facility] Multi-dose 6+ MO Branch Influenza [...] Universit y of [facility] IM 00:00:00 [place] [facility] Multi-dose 6+ MO Branch Influenza Virus 2018-08-20 Completed Universit y of [facility] IM 00:00:00 [place] [facility] Multi-dose 6+ MO Branch Influenza Virus 2018-08-20 Completed Universit y of [facility] IM 00:00:00 [place] [facility] Multi-dose 6+ MO Branch HPV 2015-05-06 Completed University of 00:00:00 [facility] Branch HPV 2015-05-06 Completed University of 00:00:00 [facility] Branch HPV 2015-05-06 Completed University of 00:00:00 [place] [facility] HPV 2015-05-06 Completed University of 00:00:00 [facility] Branch HPV 2015-05-06 Completed University of 00:00:00 [facility] Branch HPV 2015-05-06 Completed University of 00:00:00 [place] [facility] HPV 2015-05-06 Completed University of 00:00:00 [place] [facility] HPV 2015-05-06 Completed University of 00:00:00 [place] [facility] HPV 2015-05-06 Completed University of 00:00:00 [place] [facility] HPV 2015-05-06 Completed University of 00:00:00 [place] [facility] HPV 2015-05-06 Completed University of 00:00:00 [facility] Branch HPV 2015-05-06 Completed University of 00:00:00 [facility] Branch HPV 2015-05-06 Completed University of 00:00:00 [place] [facility] HPV 2015-05-06 Completed University of 00:00:00 [place] [facility] HPV 2015-05-06 Completed University of 00:00:00 [facility] Branch HPV 2015-05-06 Completed University of 00:00:00 [place] [facility] HPV 2015-05-06 Completed [facility] of 00:00:00 [place] [facility] HPV 2015-05-06 Completed University of 00:00:00 [facility] HPV 2015-05-06 Completed University of 00:00:00 [place] [facility] HPV 2015-05-06 Completed University of [...] Branch Td 2008-10-16 Completed University of 00:00:00 [place] [facility] Td 2008-10-16 Completed University of 00:00:00 [place] [facility] Td 2008-10-16 Completed University of 00:00:00 [place] [facility] Td 2008-10-16 Completed University of 00:00:00 [place] [facility] Td 2008-10-16 Completed University of 00:00:00 [place] [facility] Td 2008-10-16 Completed University of 00:00:00 [place] [facility] Td 2008-10-16 Completed University of 00:00:00 [place] [facility] Td 2008-10-16 Completed University of 00:00:00 [place] [facility] Td 2008-10-16 Completed University of 00:00:00 [place] [facility] Td 2008-10-16 Completed University of 00:00:00 [place] [facility] Td 2008-10-16 Completed University of 00:00:00 [place] [facility] Td 2008-10-16 Completed University of 00:00:00 [place] [facility] Td 2008-10-16 Completed University of 00:00:00 [facility] Branch Td 2008-10-16 Completed University of 00:00:00 [place] [facility] Td 2008-10-16 Completed University of 00:00:00 [place] [facility] Td 2008-10-16 Completed University of 00:00:00 [place] [facility] Td 2008-10-16 Completed University of 00:00:00 [place] [facility] Td 2008-10-16 Completed University of 00:00:00 [place] [facility] Td 2008-10-16 Completed University of 00:00:00 [facility] Branch Td 2008-10-16 Completed University of 00:00:00 [place] [facility] Td 2008-10-16 Completed University of 00:00:00 [place] [facility] Td 2008-10-16 Completed University of 00:00:00 [facility] Td 2008-10-16 Completed University of 00:00:00 [place] [facility] Td 2008-10-16 Completed University of 00:00:00 [place] [facility] Td 2008-10-16 Completed University of 00:00:00 [facility] Td 2008-10-16 Completed University of 00:00:00 [facility] Td 2008-10-16 Completed University of 00:00:00 [place] [facility] Td 2008-10-16 Completed University of 00:00:00 [facility] Td 2008-10-16 Completed University of 00:00:00 [facility] Vital Signs Vital Name Observation Time Observation Value Comments Source Systolic blood 2023-01-10 20:24:00 118 mm[Hg] Univer sity of pressure [place] [facility] Diastolic blood 2023-01-10 20:24:00 95 mm[Hg] Unive rsity of pressure [place] [facility] Heart rate 2023-01-10 20:24:00 72 /min [facility] [place] [facility] Body temperature 2023-01-10 20:24:00 36.61 [place] [facility] [place] [facility] Respiratory rate 2023-01-10 20:24:00 18 /min [facility] [place] [facility] Body height 2023-01-10 20:24:00 165.1 cm [facility] [place] [facility] Body weight 2023-01-10 20:24:00 61.054 kg [facility] [place] [facility] BMI 2023-01-10 20:24:00 22.40 kg/m2 [facility] [place] [facility] Systolic blood 2022-11-15 14:28:00 104 mm[Hg] Univer sity of pressure [facility] Diastolic blood 2022-11-15 14:28:00 54 mm[Hg] Unive rsity of pressure [facility] Heart rate 2022-11-15 14:28:00 81 /min [facility] [place] [facility] Body temperature 2022-11-15 14:28:00 37.39 [facility] [place] [facility] Respiratory rate 2022-11-15 14:28:00 18 /min Univ [facility] of [place] [facility] Body height 2022-11-15 14:28:00 165.1 cm [facility] [place] [facility] Body weight 2022-11-15 14:28:00 60.691 kg [facility] [place] [facility] BMI 2022-11-15 14:28:00 22.27 kg/m2 [facility] Systolic blood 2020-09-07 16:25:00 103 mm[Hg] Univer sity of pressure [place] [facility] Diastolic blood 2020-09-07 16:25:00 67 mm[Hg] Unive rsity of pressure [place] [facility] Heart rate 2020-09-07 16:25:00 61 /min [facility] [place] [facility] Body temperature 2020-09-07 16:25:00 36.83 [place] [facility] [place] [facility] Respiratory rate 2020-09-07 16:25:00 16 /min [facility] [place] [facility] Body height 2020-09-07 16:25:00 165.1 cm [facility] [place] Body weight 2020-09-07 16:25:00 74.299 kg [facility] BMI 2020-09-07 16:25:00 27.26 kg/m2 [facility] Systolic blood 2020-09-07 16:25:00 103 mm[Hg] Univer sity of pressure [facility] Diastolic blood 2020-09-07 16:25:00 67 mm[Hg] Unive rsity of pressure [facility] Heart rate 2020-09-07 16:25:00 61 /min [facility] Body temperature 2020-09-07 16:25:00 36.83 [place] Univ ersity of [facility] Respiratory rate 2020-09-07 16:25:00 16 /min Univ ersity of [facility] Body height 2020-09-07 16:25:00 165.1 cm [facility]i [facility] Body weight 2020-09-07 16:25:00 74.299 kg [facility] BMI 2020-09-07 16:25:00 27.26 kg/m2 [facility] of [facility] Systolic blood 2020-08-16 13:55:00 125 mm[Hg] Univer sity of pressure [facility] Diastolic blood 2020-08-16 13:55:00 85 mm[Hg] Unive rsity of pressure [facility] Heart rate 2020-08-16 13:55:00 73 /min [facility]i [facility] of [facility] Body temperature 2020-08-16 13:55:00 37 [place] Univ ers[facility] of [facility] Respiratory rate 2020-08-16 13:55:00 17 /min Univ ersity of [facility] Oxygen saturation in 2020-08-16 13:55:00 97 /min University of Arterial blood by [facility] Pulse oximetry Branch Body height 2020-08-14 15:45:00 165.1 cm [facility] Body weight 2020-08-14 15:45:00 83.689 kg [facility] BMI 2020-08-14 15:45:00 30.70 kg/m2 [facility] Systolic blood 2020-08-16 13:55:00 125 mm[Hg] [facility] Diastolic blood 2020-08-16 13:55:00 85 mm[Hg] Unive [facility]ity [facility] Heart rate 2020-08-16 13:55:00 73 /min [facility] Body temperature 2020-08-16 13:55:00 37 [place] [facility] Respiratory rate 2020-08-16 13:55:00 17 /min [facility] Oxygen saturation in 2020-08-16 13:55:00 97 /min University of Arterial blood by [employer] kavon Pulse oximetry Branch Body height 2020-08-14 15:45:00 165.1 cm [facility] Body weight 2020-08-14 15:45:00 83.689 kg [facility] BMI 2020-08-14 15:45:00 30.70 kg/m2 [facility] Heart rate 2020-08-11 05:30:00 83 /min [facility] Oxygen saturation in 2020-08-11 04:45:00 98 /min University of Arterial blood by [employer] kavon Pulse oximetry Branch Systolic blood 2020-08-11 04:39:00 113 mm[Hg] [facility] Diastolic blood 2020-08-11 04:39:00 78 mm[Hg] [facility]ive [facility] Body temperature 2020-08-11 04:39:00 36.83 [place] [facility] Respiratory rate 2020-08-11 04:39:00 16 /min [facility] Body height 2020-08-11 04:39:00 165.1 cm [facility] Body weight 2020-08-11 04:39:00 83.462 kg [facility] BMI 2020-08-11 04:39:00 30.62 kg/m2 [facility] Heart rate 2020-08-11 05:30:00 83 /min [facility] Oxygen saturation in 2020-08-11 04:45:00 98 /min University of Arterial blood by [employer] k[employer] Pulse oximetry Branch Systolic blood 2020-08-11 04:39:00 113 mm[Hg] Univer [facility]ity of [facility] Diastolic blood 2020-08-11 04:39:00 78 mm[Hg] Unive rsity of [facility] Body temperature 2020-08-11 04:39:00 36.83 [place] [facility] Respiratory rate 2020-08-11 04:39:00 16 /min [facility] Body height 2020-08-11 04:39:00 165.1 cm [facility] Body weight 2020-08-11 04:39:00 83.462 kg [facility] BMI 2020-08-11 04:39:00 30.62 kg/m2 [facility] Systolic blood 2020-08-06 19:05:00 119 mm[Hg] [facility]iver [facility]ity [facility] Diastolic blood 2020-08-06 19:05:00 72 mm[Hg] [facility]ive [facility] Heart rate 2020-08-06 19:05:00 91 /min [facility] Body temperature 2020-08-06 19:05:00 36.72 [place] [facility] Respiratory rate 2020-08-06 19:05:00 16 /min [facility] Body height 2020-08-06 19:05:00 165.1 cm [facility] Body weight 2020-08-06 19:05:00 81.279 kg [facility] BMI 2020-08-06 19:05:00 29.82 kg/m2 [facility] Systolic blood 2020-08-06 19:05:00 119 mm[Hg] [facility] Diastolic blood 2020-08-06 19:05:00 72 mm[Hg] Unive rsity of [facility] Heart rate 2020-08-06 19:05:00 91 /min [facility] Body temperature 2020-08-06 19:05:00 36.72 [place] [facility] Respiratory rate 2020-08-06 19:05:00 16 /min [facility] Body height 2020-08-06 19:05:00 165.1 cm [facility] Body weight 2020-08-06 19:05:00 81.279 kg [facility] BMI 2020-08-06 19:05:00 29.82 kg/m2 [facility] Systolic blood 2020-07-31 18:04:00 108 mm[Hg] [facility] Diastolic blood 2020-07-31 18:04:00 68 mm[Hg] [facility]ive [facility] Heart rate 2020-07-31 18:04:00 81 /min [facility] Body temperature 2020-07-31 18:04:00 37 [place] [facility] Respiratory rate 2020-07-31 18:04:00 16 /min [facility] Body height 2020-07-31 18:04:00 165.1 cm [facility] Body weight 2020-07-31 18:04:00 80.105 kg [facility] BMI 2020-07-31 18:04:00 29.39 kg/m2 [facility] Systolic blood 2020-07-24 14:32:00 115 mm[Hg] [facility] Diastolic blood 2020-07-24 14:32:00 72 mm[Hg] [facility]ive [facility] Heart rate 2020-07-24 14:32:00 104 /min [facility] Body temperature 2020-07-24 14:32:00 36.72 [place] [facility] Respiratory rate 2020-07-24 14:32:00 16 /min [facility] Body height 2020-07-24 14:32:00 165.1 cm [facility] Body weight 2020-07-24 14:32:00 79.153 kg [facility] BMI 2020-07-24 14:32:00 29.04 kg/m2 [facility] Systolic blood 2020-07-10 16:09:00 115 mm[Hg] [facility] Diastolic blood 2020-07-10 16:09:00 69 mm[Hg] [facility]ive [facility] Heart rate 2020-07-10 16:09:00 81 /min [facility] Body temperature 2020-07-10 16:09:00 36.39 [place] [facility] Respiratory rate 2020-07-10 16:09:00 16 /min [facility] Body height 2020-07-10 16:09:00 165.1 cm [facility] Body weight 2020-07-10 16:09:00 76.885 kg [facility] BMI 2020-07-10 16:09:00 28.21 kg/m2 [facility] Systolic blood 2020-06-26 13:58:00 110 mm[Hg] [facility] Diastolic blood 2020-06-26 13:58:00 73 mm[Hg] Unive [facility]ity of [facility] Heart rate 2020-06-26 13:58:00 99 /min [facility] Body temperature 2020-06-26 13:58:00 36.11 [place] [facility] Respiratory rate 2020-06-26 13:58:00 16 /min [facility] Body height 2020-06-26 13:58:00 162.6 cm [facility] Body weight 2020-06-26 13:58:00 74.078 kg [facility] BMI 2020-06-26 13:58:00 28.03 kg/m2 [facility] Systolic blood 2020-06-12 15:31:00 108 mm[Hg] [facility] Diastolic blood 2020-06-12 15:31:00 69 mm[Hg] [facility]ive [facility] Heart rate 2020-06-12 15:31:00 97 /min [facility] Body temperature 2020-06-12 15:31:00 36.11 [place] [facility] Respiratory rate 2020-06-12 15:31:00 16 /min [facility] Body height 2020-06-12 15:31:00 162.6 cm [facility] Body weight 2020-06-12 15:31:00 72.689 kg [facility] BMI 2020-06-12 15:31:00 27.51 kg/m2 [facility] Systolic blood 2020-05-28 16:20:00 114 mm[Hg] [facility] Diastolic blood 2020-05-28 16:20:00 69 mm[Hg] [facility]ive [facility] Heart rate 2020-05-28 16:20:00 85 /min [facility] Body temperature 2020-05-28 16:20:00 36.11 [place] [facility] Respiratory rate 2020-05-28 16:20:00 16 /min [facility] Body height 2020-05-28 16:20:00 162.6 cm [facility] Body weight 2020-05-28 16:20:00 70.988 kg [facility] BMI 2020-05-28 16:20:00 26.86 kg/m2 [facility] Systolic blood 2020-04-28 15:52:00 114 mm[Hg] [facility] Diastolic blood 2020-04-28 15:52:00 73 mm[Hg] [facility]ive [facility] Heart rate 2020-04-28 15:52:00 87 /min [facility] Body temperature 2020-04-28 15:52:00 36.22 [place] [facility] Respiratory rate 2020-04-28 15:52:00 16 /min [facility] Body height 2020-04-28 15:52:00 162.6 cm [facility] Body weight 2020-04-28 15:52:00 68.266 kg [facility] BMI 2020-04-28 15:52:00 25.83 kg/m2 [facility] Systolic blood 2020-03-31 15:19:00 97 mm[Hg] [facility] Diastolic blood 2020-03-31 15:19:00 63 mm[Hg] [facility]ive [facility] Heart rate 2020-03-31 15:19:00 69 /min [facility] Body temperature 2020-03-31 15:19:00 36.39 [place] [facility] Respiratory rate 2020-03-31 15:19:00 16 /min [facility] Body height 2020-03-31 15:19:00 162.6 cm [facility] Body weight 2020-03-31 15:19:00 67.841 kg Universi ty of [facility] BMI 2020-03-31 15:19:00 25.67 kg/m2 [facility] Body weight 2020-02-14 18:17:00 63.504 kg [facility] ty [facility] BMI 2020-02-14 18:17:00 23.30 kg/m2 [facility] Systolic blood 2020-02-04 16:13:00 115 mm[Hg] Univer sity of pressure [facility] Diastolic blood 2020-02-04 16:13:00 70 mm[Hg] Unive rsity of pressure [facility] Heart rate 2020-02-04 16:13:00 79 /min [facility] ty [facility] Body temperature 2020-02-04 16:13:00 36.17 [place] Univ [facility] Respiratory rate 2020-02-04 16:13:00 16 /min Univ ersity of [facility] Body height 2020-02-04 16:13:00 165.1 cm [facility] Body weight 2020-02-04 16:13:00 63.645 kg [facility] BMI 2020-02-04 16:13:00 23.35 kg/m2 [facility] Systolic blood 2020-01-02 14:54:00 105 mm[Hg] Univer sity of pressure [facility] Diastolic blood 2020-01-02 14:54:00 64 mm[Hg] Unive rsity of pressure [facility] Heart rate 2020-01-02 14:54:00 83 /min [facility] Body temperature 2020-01-02 14:54:00 37 [place] Univ [facility] Respiratory rate 2020-01-02 14:54:00 16 /min Univ ersity of [facility] Body height 2020-01-02 14:54:00 165.1 cm [facility] Body weight 2020-01-02 14:54:00 62.171 kg [facility] BMI 2020-01-02 14:54:00 22.81 kg/m2 [facility] Procedures Procedure Date / Time Performing Clinician Source Performed HCV ANTIBODY 2023-01-10 21:00:00 Hafsa Smart [facility] HIV 1/2 AG-AB WITH REFLEX 2023-01-10 21:00:00 Hafsa Smart [facility] SYPHILIS IGG/IGM 2023-01-10 21:00:00 Hafsa Smart [facility] PATIENT FINANCIAL 2023-01-10 19:57:03 Doctor Unassigned, Un [facility] POLICY [facility] CONSENT/REFUSAL FOR 2022-11-15 14:10:32 Doctor Unacandice, [facility] DIAGNOSIS AND TREATMENT [facility] ASSIGNMENT OF BENEFITS 2022-11-15 14:10:13 Doctor Unassigned, Un [facility] CBC WITH DIFF 2020-08-15 09:11:00 Felecia Villavicencio [facility] VENOUS CORD GAS 2020-08-15 00:55:00 Verito Davis [facility] Shankar [facility] CBC WITH DIFF 2020-08-14 10:24:00 Edel Carballo [facility] HEPATITIS B SURFACE 2020-08-14 10:24:[address] [facility] [address]TIGEN [facility] ADC OR ISA ONLY - RPR 2020-08-14 10:24:00 [facility] HIV 1/2 AG-AB WITH REFLEX 2020-08-14 10:24:00 [facility] HB ABO GROUPING 2020-08-14 10:20:00 [facility] RHO (D) IMMUNE GLOBULIN 2020-08-14 10:20:00 Felecia Villavicencio [facility] COVID-19 (ID NOW RAPID 2020-08-14 09:21:00 Edel Carballo [facility] TESTING) [facility] ADC ONLY - FERN TEST 2020-08-14 09:05:00 Edel Carballo [facility] L&D VISIT (NON-DELIVERED) 2020-08-14 05:01:00 Doctor Loreta, [facility] NON-STRESS TEST 2020-08-06 19:54:52 Mally Henry [facility] POCT URINALYSIS 2020-08-06 19:06:00 Mally Henry Univers ity [facility] POCT URINALYSIS 2020-07-31 00:00:00 Mally Henry Univers it[facility] POCT URINALYSIS 2020-07-24 14:33:00 Tamara Henryola Tonie Univers ity [facility] POCT URINALYSIS 2020-07-10 00:00:00 Mally Henry Univers it[facility] POCT URINALYSIS 2020-06-26 14:01:00 Mally Henry Univers [facility] POCT URINALYSIS 2020-06-12 15:33:00 Mally Henry Univers ity [facility] STERILIZATION CONSENT 2020-06-12 05:01:00 [facility] [place] [facility] POCT URINALYSIS 2020-05-28 16:24:00 Mally Henry Univers ity [facility] POCT URINALYSIS 2020-04-28 15:54:00 Mally Henry Univers [facility] POCT URINALYSIS 2020-03-31 15:20:00 Mally Henry Univers [facility] POCT URINALYSIS 2020-02-04 19:05:00 Mally Henry Univers [facility] PATIENT CORRESPONDENCE 2020-02-04 05:01:00 Doctor [facility], [facility], USPS [place] [facility] DOCUMENTATION) FLU VACC ([id number]), 6+ 2020-01-02 15:11:35 Mally Henry [facility] MONTHS, IM, QUAD Medical Branch POCT TEST 2020-01-02 14:49:00 Mally Henry [facility] POCT URINALYSIS W/O 2020-01-02 14:49:00 Mally Henry [facility] [place] SPECIFIC GRAVITY [facility] NOTICE OF PRIVACY 2020-01-02 14:17:14 [facility]ass[facility], [facility] [place] [facility] Encounters Start End Encounter Admission Attending Care Care Encounter Source Date/Time Date/Time Type Type Clinicians Facility Department ID 2021-08-14 Outpatient P [facility] [id number] Univers 01:11:54 ity of [facility] 2021-08-[address] [facility] [id number] Univers 01:11:26 ity of [facility] 2021-08-14 Outpatient P [facility] [id number] Univers 01:11:26 ity of [facility] 2023-01-10 2023-01-[address] [facility] [id number] Univers 15:30:00 16:00:41 HAFSA ity [facility] 2023-01-10 2023-01-10 Office Provider, Flako Benites [facility] 1 .2.840.114 [id number] Univers 15:30:00 16:00:41 Visit Hafsa Smart COLLEGE PROFESSOR [id number] 0 ity of [facility] 4.2.7.2.686 [place] as MATERNAL [id number] Med ical & CHILD [address] [place] [address] 2023-01-10 2023-01-10 Orders Doctor KAVYA 1.2.840.114 [id number] Univers 00:00:00 00:00:00 Only Unassigned, DILIP [id number] ity of [place] [facility] 4.2.7.2.686 [place] as [id number] [address] 2022-11-17 2022-11-17 [facility] 1.2.840.114 [id number] Univers 00:00:00 00:00:00 Management Hafsa Lenz COLLEGE PROFESSOR [id number] ity of [facility] 4.2.7.2.686 [place] as MATERNAL [phone] [facility] ical & CHILD [address] [place] [address] 2022-11-15 2022-11-[address] [facility] [id number] Univers 08:15:00 10:03:13 HAFSA serna [facility] 2022-11-15 2022-11-15 Office Provider, Flako Benites [facility] 1 .2.840.114 [id number] Univers 08:15:00 10:03:13 Visit Hafsa Smart COLLEGE PROFESSOR 350.1.13.1 0 ity of REGIONAL [id number] [place] as MATERNAL [id number] Med ical & CHILD [address] [place] [address] 2022-11-15 2022-11-15 Orders Doctor KAVYA 1.2.840.114 [id number] Univers 00:00:00 00:00:00 Only Unassigned, DILIP 350.1.13.10 ity of [place] [facility] 4.2.7.2.686 [place] as [phone] [address] 2020-09-28 2020-09-[address] [facility] [id number] Univers 10:30:00 10:30:00 ROSMOONNDA ity o f [facility] 2020-09-07 2020-09-07 Routine [facility] [place] 1.2.840.114 [id number] 10:06:40 10:21:40 Rosmoonnda R COLLEGE PROFESSOR [id number] Visit [facility] 4.2.7.2.686 MATERNAL [phone] & CHILD [address] [place] [address] 2020-09-07 2020-09-07 Routine [facility] 1.2.840.114 [id number] Univers 10:06:40 10:21:40 Roshunda R COLLEGE PROFESSOR [id number] ity of Visit REGIONAL 4.2.7.2.686 [place] as MATERNAL [id number] Med ical & CHILD [address] [place] [address] 2020-09-07 2020-09-07 [id number] Univers 10:15:00 10:15:00 ROSMOONNDA ity o f [facility] 2020-08-26 2020-08-26 Telephone [facility] 1.2.840.114 [id number] 00:00:00 00:00:00 Mally Schilling COLLEGE PROFESSOR [id number] REGIONAL 4.2.7.2.686 MATERNAL [id number] & CHILD [address] [place] [address] 2020-08-26 2020-08-[address] [facility] 1.2.840.114 [id number] Univers 00:00:00 00:00:00 Mally Schilling COLLEGE PROFESSOR [id number] ity of [facility] 4.2.7.2.686 [place] as MATERNAL [id number] Med ical & CHILD [address] [place] [address] 2020-08-14 2020-08-16 [facility] Edel Carballo 1.2.840.114 [id number] Univers 03:09:00 12:55:00 Encounter Verito LawleranahyVonnie morris DILIP 350. 1.13.10 ity of [facility] 4.2.7.2.686 [place] as [phone] [place] 096503 [place] 2020-08-14 2020-08-16 [facility] Edel Carballo 1.2.840.114 [id number] 03:09:00 12:55:00 Encounter Verito LawleranahyVonnie morris DILIP 350. 1.13.10 [facility] 4.2.7.2.686 [id number] 2020-08-14 2020-08-[address] [facility] [id number] Univers 08:00:00 08:00:00 MALLY serna o f [facility] 2020-08-14 2020-08-14 Orders Doctor HOFF 1.2.840.114 [id number] Univers 00:00:00 00:00:00 Only Unassigned, DILIP 350.1.13.10 ity of [place] [facility] 4.2.7.2.686 [place] as [phone] [facility] 009 [place] 2020-08-14 2020-08-14 Orders Doctor HOFF 1.2.840.114 [id number] 00:00:00 00:00:00 Only Unassigned, DILIP 350.1.13.10 [place] [facility] 4.2.7.2.686 [id number] 2020-08-10 2020-08-11 [facility] Jose [place] Francisco [facility] 1.2.840.114 [id number] Univers 23:10:00 01:00:00 Encounter [place] 350.1.13.10 ity of [place] 4.2.7.2.686 [place] [facility] [id number] [facility] 083 [place] 2020-08-10 2020-08-11 [facility] 1.2.840.114 [id number] 23:10:00 01:00:00 Encounter [place] 350.1.13.10 [place] 4.2.7.2.686 [place] [id number] [id number] 2020-08-06 2020-08-06 Routine Akinsipe, [facility] [id number] [id number] [facility] 13:48:55 14:59:03 Mally C COLLEGE PROFESSOR 350.1.13.10 ity of Visit REGIONAL 4.2.7.2.686 [place] as MATERNAL [id number] Med ical & CHILD [address] [place] [address] 2020-08-06 2020-08-[address] [id number] 13:48:55 14:59:03 Mally C COLLEGE PROFESSOR 350.1.13.10 Visit [facility] 4.2.7.2.686 MATERNAL [id number] & CHILD [address] [place] [address] 2020-08-06 2020-08-06 Outpatient R WING, [facility] [id number] [facility] 14:00:00 14:00:00 MALLY ity o f [facility] 2020-08-03 2020-08-03 Telephone [facility] 1.2.840.114 [id number] [facility] 00:00:00 00:00:00 Mally C COLLEGE PROFESSOR [id number] ity of REGIONAL 4.2.7.2.686 [place] as MATERNAL [id number] [facility] & CHILD [address] [place] [address] 2020-08-03 2020-08-03 Telephone [facility] 1.2.840.114 [id number] 00:00:00 00:00:00 Mally C COLLEGE PROFESSOR 350.1.13.10 REGIONAL 4.2.7.2.686 MATERNAL [id number] & CHILD [address] [place] [address] 2020-07-31 2020-07-31 Routine [place], [facility] [id number] Univers 12:50:31 13:29:28 Mally C COLLEGE PROFESSOR 350.1.13.10 ity of Visit REGIONAL 4.2.7.2.686 [place] as MATERNAL [phone] [facility] ical & CHILD [address] [place] [address] 2020-07-31 2020-07-31 Outpatient R AKINSIPE, [facility] [id number] Univers 13:00:00 13:00:00 MALLY ity o f [facility] 2020-07-24 2020-07-24 Routine [place], [facility] [id number] Univers 09:28:35 09:47:20 Mally C COLLEGE PROFESSOR 350.1.13.10 ity of Visit REGIONAL 4.2.7.2.686 [place] as MATERNAL [id number] [facility] & CHILD [address] [place] [address] 2020-07-24 2020-07-24 Outpatient R AKINSIPE, [facility] [id number] Univers 09:30:00 09:30:00 MALLY ity o f [facility] 2020-07-22 2020-07-[address] [facility] 1.2.840.114 [id number] Univers 00:00:00 00:00:00 Mally C COLLEGE PROFESSOR 350.1.13.10 ity of REGIONAL 4.2.7.2.686 [place] as MATERNAL [phone] [facility] & [address] 2020-07-10 2020-07-10 Routine Akins[place], [facility] [id number] Univers 11:02:49 11:38:13 Mally C COLLEGE PROFESSOR 350.1.13.10 ity of Visit REGIONAL 4.2.7.2.686 [place] as MATERNAL [id number] [facility] & CHILD [address] [place] [address] 2020-07-10 2020-07-10 Outpatient R AKINSIPE, [facility] [id number] Univers 11:00:00 11:00:00 MALLY ity o f [facility] 2020-06-26 2020-06-26 Routine Akinsipe, [facility] 1.2.481.991 [id number] Univers 08:50:42 09:05:42 Mally C COLLEGE PROFESSOR 350.1.13.10 ity of Visit REGIONAL 4.2.7.2.686 [place] as MATERNAL [phone] [facility] & CHILD [address] [place] [address] 2020-06-26 2020-06-26 Outpatient R AKINSIPE, [facility] [id number] Univers 09:00:00 09:00:00 MALLY ordonezy o f [facility] 2020-06-16 2020-06-16 Outpatient R AKINSIPE, [facility] [id number] Univers 09:30:00 09:30:00 MALLY ity o f [facility] 2020-06-12 2020-06-12 Routine Akinsipe, [facility] [id number] Univers 09:41:23 10:59:00 Mally C COLLEGE PROFESSOR 350.1.13.10 ity of Visit REGIONAL 4.2.7.2.686 [place] as MATERNAL [phone] [facility] & [address] 2020-06-12 2020-06-12 Outpatient R AKINSIPE, [facility] [id number] Univers 10:30:00 10:30:00 MALLY ordonezy o f [facility] 2020-06-12 2020-06-12 Outpatient R AKINSIPE, [facility] [id number] Univers 09:30:00 09:30:00 MALLY serna o f [facility] 2020-06-12 2020-06-12 Orders Doctor KAVYA 1.2.840.114 [id number] Univers 00:00:00 00:00:00 Only Unassigned, DILIP 350.1.13.10 ity of [facility] 4.2.7.2.686 Dale as [phone] [address] 2020-06-11 2020-06-11 Outpatient R AKINSIPE, [facility] [id number] Univers 10:30:00 10:30:00 MALLY ity o f [facility] 2020-06-01 2020-06-01 Spindle Tester Lab, [facility] 1.2.840. 114 [id number] Univers 08:45:01 08:51:02 Visit Johnnybentley Mally Schilling COLLEGE PROFESSOR 350.1.13. 10 ity of REGIONAL 4.2.7.2.686 [place] as MATERNAL [phone] [facility] & [address] 2020-06-01 2020-06-01 Outpatient R AKINSIPE, [facility] [id number] Univers 08:30:00 08:30:00 MALLY ity o f [facility] 2020-05-29 2020-05-[address] [facility] [id number] Univers 08:30:00 08:30:00 ity of [facility] 2020-05-28 2020-05-28 Routine Akinsipe, [facility] 1.2.084.810 [id number] Univers 11:03:28 11:33:11 Mally C COLLEGE PROFESSOR 350.1.13.10 ity of Visit REGIONAL 4.2.7.2.686 [place] as MATERNAL [phone] [facility] & [address] 2020-05-28 2020-05-28 Outpatient R AKINSIPE, [facility] [id number] Univers 11:00:00 11:00:00 MALLY ity o [facility] 2020-05-26 2020-05-26 Outpatient R AKINSIPE, [facility] [id number] Univers 12:45:00 12:45:00 MALLY ity o f [facility] 2020-04-28 2020-04-28 Routine Akinsipe, [facility] 1.2.699.898 [id number] Univers 10:43:31 11:38:20 Mally C COLLEGE PROFESSOR 350.1.13.10 ity of Visit REGIONAL 4.2.7.2.686 [place] as MATERNAL [id number] [facility] & [address] 2020-04-28 2020-04-28 Outpatient R AKINSIPE, [facility] [id number] Univers 10:45:00 10:45:00 MALLY ity o f [facility] 2020-04-13 2020-04-13 Spindle Tester Ultrasound, [facility] 1.2 .840.114 [id number] Univers 08:04:15 09:19:15 Visit Joanne Nogueira COLLEGE PROFESSOR 350.1.13.10 ity of REGIONAL 4.2.7.2.686 [place] as MATERNAL [phone] [facility] & CHILD [address] [facility] 2020-04-13 2020-04-[address] [facility] [id number] Univers 08:00:00 08:00:00 ity of [facility] 2020-04-13 2020-04-13 Telephone Carl [facility] 1.2.840.114 [id number] Univers 00:00:00 00:00:00 Mally C COLLEGE PROFESSOR 350.1.13.10 ity of REGIONAL 4.2.7.2.686 [place] as MATERNAL [phone] Med ical & CHILD [address] [place] [address] 2020-04-13 2020-04-13 [facility] 1.2.840.114 [id number] Univers 00:00:00 00:00:00 Mally C COLLEGE PROFESSOR 350.1.13.10 ity of REGIONAL 4.2.7.2.686 [place] as MATERNAL [id number] [facility] & CHILD [address] [place] [address] 2020-03-31 2020-03-31 [facility] 1.2.591.319 [id number] Univers 10:05:38 10:46:23 Mally C COLLEGE PROFESSOR 350.1.13.10 ity of Visit REGIONAL 4.2.7.2.686 [place] as MATERNAL [id number] [facility] & [address] 2020-03-31 2020-03-[address] [facility] [id number] Univers 10:00:00 10:00:00 MALLY ity o f [facility] 2020-03-30 2020-03-30 Telephone Olivier Jaramillo ..840.11 [id number] Univers 00:00:00 00:00:00 [facility] 350.1.13.10 i ty of [place] [phone] [address] 2020-03-03 2020-03-03 Spindle Tester Lab, Ang-Rmchp [facility] 1.2.840. 114 [id number] Univers 09:41:40 10:18:30 Visit Carl Mally C COLLEGE PROFESSOR 350.1.13. 10 ity of REGIONAL 4.2.7.2.686 [place] as MATERNAL [phone] Med ical & CHILD [address] [place] [address] 2020-03-03 2020-03-03 Outpatient R CARL, [facility] [id number] Univers 10:15:00 10:15:00 MALLY portillo [facility] 2020-03-02 2020-03-02 [facility]ici [facility] [place] 1.2.840.114 [id number] Univers 08::18 09:13:00 ne Visit Mally Tonie COLLEGE PROFESSOR 350.1.13.10 ity of REGIONAL 4.2.7.2.686 [place] as MATERNAL [id number] [facility] & CHILD [address] [place] [address] 2020-03-02 2020-03-02 Outpatient R CARL, [facility] [id number] Univers 08:30:00 08:30:00 MALLY portillo [facility] 2020-03-02 2020-03-02 Case Owen, [facility] 1.2.586.071 [id number] Univers 00:00:00 00:00:00 Management [facility] 350.1.13.10 ity of CL[place] [id number] [address] 2020-02-28 2020-02-28 Outpatient R AKINBENTLEY, [facility] [id number] Univers 13:00:00 13:00:00 MALLY portillo [facility] 2020-02-27 2020-02-27 Joseph Weaver, [facility] 1.2.805.338 [id number] Univers 00:00:00 00:00:00 Management [facility] 350.1.13.10 ity of [place] [id number] [address] 2020-02-14 2020-02-[address] [facility] [id number] Univers 10:30:00 10:30:00 ity of [facility] 2020-02-14 2020-02-14 Archanaedici Estela Esposito [facility] 1.2.840.114 [id number] Univers 08:09:28 08:54:28 ne Visit Olivier Jaramillo [facility] 350.1.13.10 ity of CL[place] [id number] [address] 2020-02-14 2020-02-14 Telephone [facility] 1.2.840.114 [id number] Univers 00:00:00 00:00:00 Mally Schilling COLLEGE PROFESSOR 350.1.13.10 ity of REGIONAL 4.2.7.2.686 [place] as MATERNAL [phone] [facility] & CHILD [address] [place] [address] 2020-02-13 2020-02-13 Telephone TAM Bartlett 1.2.840.114 [id number] Univers 00:00:00 00:00:00 [facility] 350.1.13.10 ity of CL[place] [phone] [address] 2020-02-07 2020-02-07 Telephone [facility] 1.2.840.114 [id number] Univers 00:00:00 00:00:00 Mally Schilling COLLEGE PROFESSOR 350.1.13.10 ity of REGIONAL 4.2.7.2.686 [place] as MATERNAL [id number] [facility] & CHILD [address] [place] [address] 2020-02-04 2020-02-04 Routine [facility] 1.2.171.202 [id number] Univers 10:45:23 11:51:13 Mally Schilling COLLEGE PROFESSOR 350.1.13.10 ity of Visit REGIONAL 4.2.7.2.686 [place] as MATERNAL [id number] [facility] & CHILD [address] [place] [address] 2020-02-04 2020-02-[address] [facility] [id number] Univers 11:00:00 11:00:00 MALLY ordonezy o f [facility] 2020-02-04 2020-02-04 Orders Doctor KAVYA 1.2.840.114 [id number] Univers 00:00:00 00:00:00 Only Unassigned, DILIP 350.1.13.10 ity of [place] [facility] 4.2.7.2.686 Dale as [id number] [address] 2020-01-24 2020-01-24 [facility]phone [facility] 1.2.580.919 [id number] Univers 00:00:00 00:00:00 Emma PRIMARY 350.1.13.10 it y of CARE 4.2.7.2.686 Marilia URIBE [id number] [address] 2020-01-21 2020-01-21 Spindle Tester Ultrasound[facility] 1.2 .840.114 [id number] Univers 11:32:42 12:02:42 Visit Last Lemus COLLEGE PROFESSOR 350.1.13.10 ity of REGIONAL 4.2.7.2.686 [place] as MATERNAL [phone] [facility] ical & CHILD [address] [facility] 2020-01-21 2020-01-[address] [facility] [id number] Univers 11:30:00 11:30:00 ity of [facility] 2020-01-20 2020-01-20 Outpatient R AMY BARTLETT [facility] [id number] Univers 09:30:00 09:30:00 AMY BARTLETT ity [facility] 2020-01-20 2020-01-20 Routine Faculty, [facility] 1.2 .840.114 [id number] Univers 08:11:20 08:41:20 Amy Bartlett COLLEGE PROFESSOR 350.1.13.10 ity of Visit REGIONAL 4.2.7.2.686 [place] as MATERNAL [phone] [facility] & CHILD [address] [place] [address] 2020-01-02 2020-01-02 Initial [facility] 1.2.314.843 [id number] Univers 09:46:25 10:35:48 Mally Schilling COLLEGE PROFESSOR 350.1.13.10 ity of Visit REGIONAL 4.2.7.2.686 [place] as MATERNAL [phone] [facility] & CHILD [address] [place] [address] 2020-01-02 2020-01-[address] [facility] [id number] Univers 10:00:00 10:00:00 MALLY ity o f [facility] 2020-01-02 2020-01-02 Orders Doctor HOFF 1.2.840.114 [id number] Univers 00:00:00 00:00:00 Only Unassigned, DILIP 350.1.13.10 ity of [place] [facility] 4.2.7.2.686 [place] as [id number] [address] 2019-02-05 2019-02-05 Outpatient R CARL, [facility] [id number] Univers 13:30:00 13:38:17 MALLY portillo [facility] Results Test Description Test Time Test Comments Results Result Comments Source GALV ONLY - SYPHILIS IGG/IGM 2023-01-11 16:14:26 Test Item Value Reference Range Interpretation Comme nts Syphilis IgG/IgM (test code = Non-reactive Non-reactive 34227-8) COLLEEN (test code = COLLEEN) Non-reactive - No serologic evidence of T. pallidum infection. Cannot exclude incubating or early syphilis. Submit a second specimen in 2-4 weeks if syphilis is clinically suspected. Equivocal - Further testing to follow. Reactive - Further testing to follow. Lab Interpretation (test code = Normal 13358-9) [facility] [place] [id number] 16:14:26 Test Item Value Reference Range Interpretation Comments Syphilis IgG/IgM (test Non-reactive Non-reactive code = 27890-7) COLLEEN (test code = COLLEEN) Non-reactive - No serologic evidence of T. pallidum infection. Cannot exclude incubating or early syphilis. Submit a second specimen in 2-4 weeks if syphilis is clinically suspected. Equivocal - Further testing to follow. Reactive - Further testing to follow. Lab Interpretation (test Normal code = 13406-4) [facility] [id number] 09:47:12 Test Item Value Reference Range Interpretation Comments HCV Ab (test code = 93027-2) Negative HCV Semi-Quantitative (test code = 0.04 10851-5) [facility] [id number] 09:47:12 Test Item Value Reference Range Interpretation Comments HCV Ab (test code = 17907-5) Negative HCV Semi-Quantitative (test code = 0.04 58717-8) [facility] AG-AB WITH [id number] 06:05:30 Test Item Value Reference Range Interpretation Comments HIV 0.09 Negative Semi-quantitative (test code = 68630-7) COLLEEN (test code = Non-reactive for HIV-1 COLLEEN) antigen and HIV-1/HIV-2 antibodies. ?No laboratory evidence of HIV infection. ?Repeat in 2-4 weeks if acute HIV infection is suspected. [facility]-AB WITH [id number] 06:05:30 Test Item Value Reference Range Interpretation Comments HIV 0.09 Negative Semi-quantitative (test code = 18910-5) COLLEEN (test code = Non-reactive for HIV-1 COLLEEN) antigen and HIV-1/HIV-2 antibodies. ?No laboratory evidence of HIV infection. ?Repeat in 2-4 weeks if acute HIV infection is suspected. [facility] with [id number] 09:58:00 Test Item Value Reference Range Interpretation Comments WBC (test code = See_Comment H [Automated 3090-2) message] The system which generated this result transmit daniel reference range : 4.30 - 11.10 10*3/?L. The reference range was not used to interpret this result as normal/abnormal . RBC (test code = See_Comment [Automated 789-8) message] The system which generated this result transmit daniel reference range : 3.93 - 5.25 10*6/?L. The reference range was not used to interpret this result as normal/abnormal . HGB (test code = 10.4 g/dL 11.6-15 L 718-7) HCT (test code = 32.9 % 35.7-45.2 L 4544-3) MCV (test code = 82.7 fL 80.6-95.5 787-2) MCH (test code = 26.1 pg 25.9-32.8 785-6) MCHC (test code = 31.6 g/dL 31.6-35.1 786-4) RDW-SD (test code = 42.4 fL 39-49.9 61029-1) RDW-CV (test code = 14.8 % 12-15.5 788-0) PLT (test code = See_Comment [Automated 777-3) message] The system which generated this result transmit daniel reference range : 166 - 358 10*3/ ?L. The reference range was not u sed to interpret th is result as normal/abnormal . MPV (test code = 11.0 fL 9.5-12.9 14762-2) NRBC/100 WBC (test See_Comment [Automat ed code = 9417886321) message] The system which generated this result transmit daniel reference range : 0.0 - 10.0 /100 WBCs. The reference range was not used to interpret this result as normal/abnormal . NRBC x10^3 (test code <0.01 See_Comment [Auto mated = 0695759377) message] The system which generated this result transmit daniel reference range : 10*3/?L. The reference range was not used to interpret this result as normal/abnormal . GRAN MAT (NEUT) % 76.2 % (test code = 770-8) IMM GRAN % (test code 1.30 % = 9008766493) LYMPH % (test code = 13.2 % 736-9) MONO % (test code = 8.2 % 5905-5) EOS % (test code = 0.8 % 713-8) BASO % (test code = 0.3 % 706-2) GRAN MAT x10^3(ANC) 13.18 10*3/uL 1.88-7.09 H (test code = 3257284475) IMM GRAN x10^3 (test 0.23 10*3/uL 0-0.06 H code = 1786346897) LYMPH x10^3 (test code 2.28 10*3/uL 1.32-3.29 = 731-0) MONO x10^3 (test code 1.42 10*3/uL 0.33-0.92 H = 742-7) EOS x10^3 (test code = 0.13 10*3/uL 0.03-0.39 711-2) BASO x10^3 (test code 0.05 10*3/uL 0.01-0.07 = 704-7) Lab Interpretation Abnormal (test code = 26015-4) [facility] OR ISA ONLY - [id number] 08:55:00 Test Item Value Reference Range Interpretation Comments RPR (Qualitative) (test code = Nonreactive Nonreactive 19594-9) Lab Interpretation (test code = Normal 39578-9) [facility] (D) IMMUNE [id number] 06:27:46 Test Item Value Reference Range Interpretation Comments RHIG CANDIDATE? No- see comment Patient i s not a (test code = candidate for R hIg- 5055) Patient is Rh Positive.Perfor med at [facility] Laboratory Services - [facility] Blood Rxes[address] [place] [phone] Free: [phone] A No. [id number] [facility] BranchARTERIAL CORD [id number] 01:12:00 Test Item Value Reference Range Interpretation Comments BASE EXCESS, CORD mEq/L (test code = 7098115921) AC PH, CORD (BEAKER) 7.18-7.38 (test code = 4330364939) PC02, CORD (test code See_Comment [Auto mated message] The = 1964493795) system which g enerated this result transmit daniel reference range : 32 - 66 mmHg. The refer ence range was not used to interpret this result as normal/abnormal . PO2, CORD (test code See_Comment [Autom ated message] The = 3548979271) system which g enerated this result transmit daniel reference range : 10 - 30 mmHg. The refer ence range was not used to interpret this result as normal/abnormal . BICARBONATE, CORD See_Comment [Automate d message] The (test code = system which ge nerated this 0064187182) result transmit daniel reference range : 17 - 27 mEq/L. The refe rence range was not used to interpret this result as normal/abnormal . [facility] BranchVENOUS CORD [id number] 01:08:00 Test Item Value Reference Range Interpretation Comments VENOUS BASE EXCESS, mEq/L CORD (test code = 1155747760) VENOUS PH, CORD (test 7.25-7.45 code = 5763422097) VENOUS PC02, CORD See_Comment [Automate d message] The (test code = system which ge nerated 1594955324) this result tra nsmitted reference range : 27 - 49 mmHg. The refer ence range was not used to interpret this result as normal/abnormal . VENOUS PO2, CORD (test See_Comment [Aut omated message] The code = 0979167075) system wh ich generated this result tra nsmitted reference range : 17 - 41 mmHg. The refer ence range was not used to interpret this result as normal/abnormal . VENOUS BICARBONATE, See_Comment QUES [Au tomated message] CORD (test code = The system which generated 9474209661) this result tra nsmitted reference range : 12 - 29 mEq/L. The refe rence range was not used to interpret this result as normal/abnormal . [facility] Center[facility]atitis B Surface [id number] 16:14:00 Test Item Value Reference Range Interpretation Comments HBsAg Semi-Quantitative (test code = Negative Negative 5195-3) [facility]Type and Screen - ONCE [id number] 12:25:45 Test Item Value Reference Range Interpretation Comments ABO & RH (test code O Positive Performe d at [facility] = 20) Laboratory Serv [facility] Blood Bank1 [address] [place], [place] [address]Toll Free: [phone] A No. [id number] IAT (test code = Negative Performed a t [facility] 1185) Laboratory Serv [facility] Blood Bank[address] [place], [place] [address]Toll Free: [phone] A No. [id number] [facility] 1/2 AG-AB WITH [id number] 12:19:00 Test Item Value Reference Range Interpretation Comments HIV Negative Negative Semi-quantitative (test code = 77532-3) COLLEEN (test code = Non-reactive for HIV-1 COLLEEN) antigen and HIV-1/HIV-2 antibodies. ?No laboratory evidence of HIV infection. ?Repeat in 2-4 weeks if acute HIV infection is suspected. [facility] CenterCBC with [id number] 11:28:00 Test Item Value Reference Range Interpretation Comments WBC (test code = See_Comment H [Automated 1490-2) message] The system which generated this result transmit daniel reference range : 4.30 - 11.10 10*3/?L. The reference range was not used to interpret this result as normal/abnormal . RBC (test code = See_Comment L [Automated 161-8) message] The system which generated this result [...] RDW-SD (test code = 41.6 fL 39-49.9 75576-7) RDW-CV (test code = 14.6 % 12-15.5 788-0) PLT (test code = See_Comment [Automated 777-3) message] The system which generated this result transmit daniel reference range : 166 - 358 10*3/ ?L. The reference range was not u sed to interpret th is result as normal/abnormal . MPV (test code = 10.6 fL 9.5-12.9 97584-2) NRBC/100 WBC (test See_Comment [Automat ed code = 1095754380) message] The system which generated this result transmit daniel reference range : 0.0 - 10.0 /100 WBCs. The reference range was not used to interpret this result as normal/abnormal . NRBC x10^3 (test code <0.01 See_Comment [Auto mated = 9509860795) message] The system which generated this result transmit daniel reference range : 10*3/?L. The reference range was not used to interpret this result as normal/abnormal . GRAN MAT (NEUT) % 73.3 % (test code = 770-8) IMM GRAN % (test code 2.20 % = 9032807421) LYMPH % (test code = 15.2 % 736-9) MONO % (test code = 7.6 % 5905-5) EOS % (test code = 1.2 % 713-8) BASO % (test code = 0.5 % 706-2) GRAN MAT x10^3(ANC) 12.36 10*3/uL 1.88-7.09 H (test code = 6502814165) IMM GRAN x10^3 (test 0.37 10*3/uL 0-0.06 H code = 1873541265) LYMPH x10^3 (test code 2.57 10*3/uL 1.32-3.29 = 731-0) MONO x10^3 (test code 1.28 10*3/uL 0.33-0.92 H = 742-7) EOS x10^3 (test code = 0.20 10*3/uL 0.03-0.39 711-2) BASO x10^3 (test code 0.08 10*3/uL 0.01-0.07 H = 704-7) Lab Interpretation Abnormal (test code = 05844-6) [facility]COVID[facility] (ID NOW RAPID TESTING)2020-08-14 09:59:00 Test Item Value Reference Range Interpretation Comments SARS-CoV-2 Rapid ID NOW Not Detected Not Detected (test code = 88918-3) COLLEEN (test code = COLLEEN) ID NOW COVID-19 Assay is an isothermal nucleic acid amplification test intended for the qualitative detection of nucleic acid from SARS-CoV-2 viral RNA in nasopharyngeal (BOOK CUTTER) specimens. It is used under Emergency Use [...] indicated. Lab Interpretation Normal (test code = 02182-6) [facility] ONLY - FERN [id number] 09:34:00 Test Item Value Reference Range Interpretation Comments Fern Test (test code = 1203349257) Positive [facility] CenterFETAL NON-STRESS [id number] 19:55:33NST: cat 1, reactive/reassuring, no ctx, +accels, neg decls, moderate variability [facility] CenterPOMD URINALYSIS W SPECIFIC [id number] 19:06:00 Test Item Value Reference Range Interpretation [...] POCT U APPEAR (test code = 3267) [facility] URINALYSIS W SPECIFIC [id number] 18:05:00 Test Item Value Reference Range Interpretation [...] POCT U APPEAR (test code = 3267) [facility] URINALYSIS W SPECIFIC [id number] 14:33:00 Test Item Value Reference Range Interpretation [...] POCT U APPEAR (test code = 3267) [facility] URINALYSIS W SPECIFIC [id number] 16:11:00 Test Item Value Reference Range Interpretation [...] POCT U APPEAR (test code = 3267) [facility] URINALYSIS W SPECIFIC [id number] 16:11:00 Test Item Value Reference Range Interpretation [...] POCT U APPEAR (test code = 3267) [facility] URINALYSIS W SPECIFIC [id number] 16:11:00 Test Item Value Reference Range Interpretation [...] POCT U APPEAR (test code = 3267) [facility] URINALYSIS W SPECIFIC [id number] 16:11:00 Test Item Value Reference Range Interpretation [...] POCT U APPEAR (test code = 3267) [facility] URINALYSIS W SPECIFIC [id number] 14:01:00 Test Item Value Reference Range Interpretation [...] POCT U APPEAR (test code = 3267) [facility] URINALYSIS W SPECIFIC [id number] 15:33:00 Test Item Value Reference Range Interpretation [...] POCT U APPEAR (test code = 3267) [facility] URINALYSIS W SPECIFIC [id number] 15:33:00 Test Item Value Reference Range Interpretation [...] POCT U APPEAR (test code = 3267) [facility] URINALYSIS W SPECIFIC [id number] 15:33:00 Test Item Value Reference Range Interpretation [...] POCT U APPEAR (test code = 3267) [facility] URINALYSIS W SPECIFIC [id number] 16:24:00 Test Item Value Reference Range Interpretation [...] POCT U APPEAR (test code = 3267) [facility] URINALYSIS W SPECIFIC [id number] 15:54:00 Test Item Value Reference Range Interpretation [...] POCT U APPEAR (test code = 3267) [facility] URINALYSIS W SPECIFIC [id number] 15:54:00 Test Item Value Reference Range Interpretation [...] POCT U APPEAR (test code = 3267) [facility] URINALYSIS W SPECIFIC [id number] 15:54:00 Test Item Value Reference Range Interpretation [...] POCT U APPEAR (test code = 3267) [facility] URINALYSIS W SPECIFIC [id number] 15:20:00 Test Item Value Reference Range Interpretation [...] POCT U APPEAR (test code = 3267) [facility] URINALYSIS W SPECIFIC [id number] 19:05:00 Test Item Value Reference Range Interpretation [...] POCT U APPEAR (test code = 3267) [facility] URINALYSIS W SPECIFIC [id number] 19:05:00 Test Item Value Reference Range Interpretation [...] POCT U APPEAR (test code = 3267) [facility] [id number] 14:49:00 Test Item Value Reference Range Interpretation Comments POCT PREG (test code = 1605) Positive On board controls acceptable with C Yes Line (test code = 3574) POCT PREG LOT # (test code = 3575) POCT PREG TEST DATE (test code = 3576) [facility] URINALYSIS W/O SPECIFIC [id number] 14:49:00 Test Item Value Reference Range Interpretation [...] code = 3257) Neg Negative - Negative [facility]
[2023-07-01] MEDS ORDERED: CODEINE 30MG/APAP 300MG TAB ONE (21:48)
[2023-07-01] MEDS ORDERED: ONDANSETRON 4 MG/2 ML VIAL ONE (21:49)
[2023-07-01] MEDS ORDERED: IBUPROFEN 400 MG TAB ONE (21:49)
[2023-07-01] MEDS ORDERED: METOCLOPRAMIDE 5 MG TAB ONE (21:49)
[2023-07-01] MEDS ORDERED: ONDANSETRON 4 MG (ODT) TAB ONE (22:07)
--- NOTE | 2023-07-01 22:22 | RAD REPORT ---
EXAM DESCRIPTION: CT - Head Brain Wo Cont - 07/01/2023 9:41 pm CLINICAL HISTORY: Head injury with head pain COMPARISON: 2013 TECHNIQUE: Computed axial tomography of the head was obtained. IV contrast was not requested. All CT scans are performed using dose optimization technique as appropriate and may include automated exposure control or mA/KV adjustment according to patient size. FINDINGS: An intracranial bleed is not seen The ventricles are normal in caliber No significant hypodense areas within the brain visualized No extra-axial fluid collection is noted. Fluid within the sinuses/ mastoids is not seen The most inferior slices demonstrate the predental space C1-2 measures 4.5 millimeter on the 2014 exa m it measured 2.5 millimeters IMPRESSION: No acute intracranial abnormality is seen The predental space C1-2 measures 4.5 millimeters which is widened. This can be seen with transverse ligament injury. Is recommended that patient have an MRI cervical spine for further evaluation
--- NOTE | 2023-07-01 22:51 | EDPHYS ---
Physician Documentation [facility] Name: Maricel Nur Age: 27 yrs Sex: Female : 1995 Arrival Date: 07/01/2023 Time: 21:13 Bed 13 Private MD: ED Physician Aldo Garcia HPI: 07/01 21:18 This 27 yrs old Female presents to ER via Unassigned with complaints of Head sp4 Injury-Adult, Blurred Vision. 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 Patient states she struck a pole of the camper with forehead about 30 minutes [place]. Since then patient had blurry vision and headache. Patient states she feels unwell she is here for evaluation. She denied loss of consciousness. . 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 - Social history:: Smoking status: Patient denies any tobacco usage or history of. Patient uses alcohol, but reports only rare drinking. Patient/guardian denies using street drugs. - Family history:: not pertinent. ROS: 21:26 Constitutional: Negative for fever, chills, and weight loss, positive head injury, sp4 positive blurry vision, positive dizziness, positive vomiting Eyes: Negative for injury, pain, redness, and discharge positive for blurry vision 21:26 All other systems are negative. Exam: 21:26 Constitutional: This is a well developed, well nourished patient who is awake, alert, sp4 and in no acute distress. Head/Face: Normocephalic, atraumatic. Eyes: Pupils equal round and reactive to light, extra-ocular motions intact. Lids and lashes normal. Conjunctiva and sclera are not injected. Cornea within normal limits. Periorbital areas with no swelling, redness, or edema. Bilateral funduscopy reveals no sign of papilledema. ENT: Nares patent. No nasal discharge, no septal abnormalities noted. Tympanic membranes are normal and external auditory canals are clear. Oropharynx with no redness, swelling, or masses, exudates, or evidence of obstruction, uvula midline. Mucous membranes moist. Neck: Trachea midline, no thyromegaly or masses palpated, and no cervical lymphadenopathy. Supple, full range of motion without nuchal rigidity, or vertebral point tenderness. Chest/axilla: Normal chest wall appearance and motion. Nontender with no deformity. No lesions are appreciated. Cardiovascular: Regular rate and rhythm with a normal S1 and S2. No gallops, murmurs, or rubs. Normal PMI, no JVD. No pulse deficits. Respiratory: Lungs have equal breath sounds bilaterally, clear to auscultation and percussion. No rales, rhonchi or wheezes noted. No increased work of breathing, no retractions or nasal flaring. Abdomen/GI: Soft, non-tender, with normal bowel sounds. No distension or tympany. No guarding or rebound. No evidence of tenderness throughout. Back: No spinal tenderness. No costovertebral tenderness. Skin: Warm, dry with normal turgor. Normal color with no rashes, no lesions, and no evidence of cellulitis. MS/ Extremity: Pulses equal, no cyanosis. Neurovascular intact. Full, normal range of motion. Neuro: Awake and alert, GCS 15, oriented to person, place, time, and situation. Cranial nerves II-XII grossly intact. Motor strength 5/5 in all extremities. Sensory grossly intact. Psych: Awake, alert, with orientation to person, place and time. Behavior, mood, and affect are within normal limits Vital Signs: 21:19 BP 126 / 86; Pulse 87; Resp 18; Temp 98.1; Pulse Ox 100% on R/A; Weight 61.23 kg; pf1 Height 5 ft. 5 in. ; Pain 8/10; 22:04 BP 111 / 80; Pulse 80; Resp 17 S; Pulse Ox 100% on R/A; ha1 23:02 BP 117 / 80; Pulse 78; Resp 18 S; Pulse Ox 100% on R/A; ha1 21:19 Body Mass Index 22.46 (61.23 kg, 165.1 cm) pf1 21:19 Pain Scale: Adult pf1 [place] Coma Score: 21:19 Eye Response: spontaneous(4). Motor Response: obeys commands(6). Verbal Response: pf1 oriented(5). Total: 15. 22:48 Eye Response: spontaneous(4). Motor Response: obeys commands(6). Verbal Response: sp4 oriented(5). Total: 15. MDM: 21:53 Patient medically screened. sp4 22:48 Differential diagnosis: Contusion of head, face, Hematoma on Intracranial bleed- sp4 Concussion cerebral contusion. Data reviewed: vital signs, nurses notes, radiologic studies, CT scan. ED course: CT head is negative.. Patient states she has had chronic neck pains. She will be advised to have nonemergent MRI of the C-spine.. Will prescribe Fioricet as needed for headaches. . 22:48 ED course: Patient has history of bilateral tubal ligation 2 years ago. test sp4 not necessary. 07/01 21:25 Order name: CT Head Brain wo Cont; Complete Time: 22:45 sp4 Administered Medications: 21:45 Drug: Acetaminophen-Codeine PO (300 mg-30 mg) 2 tabs Route: PO; ha1 22:10 Follow up: Response: No adverse reaction; Pain is decreased; RASS: Alert and Calm (0) ha1 21:45 Drug: Ondansetron Oral Disintegrating Tablet Oral Disintegrating Tablet 4 mg Route: PO; ha1 22:10 Follow up: Response: No adverse reaction; Nausea is decreased ha1 21:50 Drug: Ibuprofen PO 800 mg Route: PO; ha1 22:10 Follow up: Response: No adverse reaction; Pain is decreased ha1 21:50 Drug: MetoCLOPramide PO 10 mg Route: PO; ha1 22:10 Follow up: Response: No adverse reaction; Nausea is decreased ha1 21:55 CANCELLED (Duplicate Order): Ondansetron IVP 4 mg IVP once; over 2 minutes pf1 Disposition Summary: 07/01/23 22:51 Discharge Ordered Location: Home sp4 Problem: new sp4 Symptoms: have improved sp4 Condition: Stable sp4 Diagnosis - Unspecified injury of head, initial encounter sp4 - Concussion without LOC, closed head injury sp4 Followup: sp4 - With: Private Physician - When: 10 - 14 days - Reason: Recheck today's complaints Discharge Instructions: - Discharge Summary Sheet sp4 - Head Injury, Adult sp4 Forms: - Patient Portal Instructions sp4 Prescriptions: - Fioricet 50-300-40 mg Oral capsule - take 1 capsule by ORAL route every 6 hours PRN headaches; 30 capsule; Refills: sp4 0, Product Selection Permitted Signatures: Dispatcher [employer] EDYelena Ya RN RN ha1 Alannah Cheng RN RN pf1 Aldo Garcia MD MD sp4 Corrections: (The following items were deleted from the chart) 21:55 21:25 Ondansetron IVP 4 mg IVP once; over 2 minutes ordered. sp4 pf1 21:55 21:55 Ondansetron IVP 4 mg IVP once; over 2 minutes ordered. pf1 pf1
--- NOTE | 2023-07-01 22:51 | ER ---
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 Patient stated injured head, when pulling some baby wipes out of the diaper bag, while turning around fast, hit head onto the awning bar extending off the camper. 21:19 Coronavirus screen: Vaccine status: Patient reports receiving the 2nd dose of the covid pf1 vaccine. Client denies travel out of the [place] in the last 14 days. At this time, the client does not indicate any symptoms associated with coronavirus-19. Ebola Screen: Patient negative for fever greater than or equal to 101.5 degrees Fahrenheit, and additional compatible Ebola Virus Disease symptoms. Mechanism of Injury: The problem was sustained outdoors, resulted from a direct blow, a solid object. Initial Sepsis Screen: Does the patient meet any 2 criteria? No. Patient's initial sepsis screen is negative. Does the patient have a suspected source of infection? No. Patient's initial sepsis screen is negative. Risk Assessment: Do you want to hurt yourself or someone else? Patient reports no desire to harm self or others. 21:19 Method Of Arrival: Ambulatory pf1 21:19 Acuity: ALEXANDER 3 pf1 22:02 Onset of symptoms was July 01, 2023. 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 - Social history:: Smoking status: Patient denies any tobacco usage or history of. Patient uses alcohol, but reports only rare drinking. Patient/guardian denies using street drugs. - Family history:: not pertinent. Screenin:19 [facility] ED Fall Risk Assessment (Adult) History of falling in the last 3 months, ha1 including since admission No falls in past 3 months (0 pts) Confusion or Disorientation No (0 pts) Intoxicated or Sedated No (0 pts) Impaired Gait No (0 pts) Mobility Assist Device Used No (0 pt) Altered Elimination No (0 pt) Score/Fall Risk Level 0 - 2 = Low Risk. 22:02 Abuse screen: Denies threats or abuse. Denies injuries from another. Nutritional ha1 screening: No deficits noted. Tuberculosis screening: No symptoms or risk factors identified. Assessment: 21:19 General: Appears uncomfortable, Behavior is calm, cooperative. Pain: Complains of pain ha1 in forehead Pain does not radiate. Pain currently is 8 out of 10 on a pain scale. Quality of pain is described as pressure, sharp. Neuro: Level of Consciousness is awake, alert, obeys commands, Oriented to person, place, time, situation. Cardiovascular: Patient's skin is warm and dry. Respiratory: Airway is patent Respiratory effort is even, unlabored, Respiratory pattern is regular, symmetrical. GI: Abdomen is flat, non-distended, Bowel sounds present X 4 quads. Reports nausea, vomiting. Derm: Skin is pink, warm \T\ dry. Bruising that is bright red, on forehead. Musculoskeletal: Circulation, motion, and sensation intact. Range of motion: intact in all extremities. 22:20 Reassessment: Patient and/or family updated on plan of care and expected duration. Pain ha1 level reassessed. Patient is alert, oriented x 3, equal unlabored respirations, skin warm/dry/pink. Vital Signs: 21:19 BP 126 / 86; Pulse 87; Resp 18; Temp 98.1; Pulse Ox 100% on R/A; Weight 61.23 kg; pf1 Height 5 ft. 5 in. ; Pain 8/10; 22:04 BP 111 / 80; Pulse 80; Resp 17 S; Pulse Ox 100% on R/A; ha1 23:02 BP 117 / 80; Pulse 78; Resp 18 S; Pulse Ox 100% on R/A; ha1 21:19 Body Mass Index 22.46 (61.23 kg, 165.1 cm) pf1 21:19 Pain Scale: Adult pf1 [place] Coma Score: 21:19 Eye Response: spontaneous(4). Motor Response: obeys commands(6). Verbal Response: pf1 oriented(5). Total: 15. 22:48 Eye Response: spontaneous(4). Motor Response: obeys commands(6). Verbal Response: sp4 oriented(5). Total: 15. ED Course: 21:18 Patient arrived in ED. kj1 21:18 Aldo Garcia MD is Attending Physician. sp4 21:19 Arm band placed on right wrist. ha1 21:19 Patient has correct armband on for positive identification. Placed in gown. Bed in low ha1 position. Call light in reach. Side rails up X 1. 21:35 Triage completed. pf1 21:41 Yelena Carcamo RN is Primary Nurse. ha1 21:43 CT Head Brain wo Cont In Process Unspecified. EDMS 23:02 No provider procedures requiring assistance completed. Patient did not have IV access ha1 during this emergency room visit. 23:05 Provided Education on: follow ups. ha1 Administered Medications: 21:45 Drug: Acetaminophen-Codeine PO (300 mg-30 mg) 2 tabs Route: PO; ha1 22:10 Follow up: Response: No adverse reaction; Pain is decreased; RASS: Alert and Calm (0) ha1 21:45 Drug: Ondansetron Oral Disintegrating Tablet Oral Disintegrating Tablet 4 mg Route: PO; ha1 22:10 Follow up: Response: No adverse reaction; Nausea is decreased ha1 21:50 Drug: Ibuprofen PO 800 mg Route: PO; ha1 22:10 Follow up: Response: No adverse reaction; Pain is decreased ha1 21:50 Drug: MetoCLOPramide PO 10 mg Route: PO; ha1 22:10 Follow up: Response: No adverse reaction; Nausea is decreased ha1 21:55 CANCELLED (Duplicate Order): Ondansetron IVP 4 mg IVP once; over 2 minutes pf1 Medication: 22:05 VIS not applicable for this client. ha1 Outcome: 22:51 Discharge ordered by . sp4 23:03 Discharged to home ambulatory. ha1 23:03 Condition: stable 23:03 Discharge instructions given to patient, Instructed on discharge instructions, follow up and referral plans. medication usage, Demonstrated understanding of instructions, follow-up care, medications, Prescriptions given X 1. 23:05 Patient left the ED. ha1 Signatures: Dispatcher [employer] EDMS Cece Hernandez kj1 Yelena Carcamo RN RN ha1 Alannah Cheng RN RN pf1 Aldo Garcia MD MD sp4 Corrections: (The following items were deleted from the chart) 22:04 21:19 GI: Abdomen is flat, non-distended, ha1 ha1
[2023-07-01 23:31] VITALS: TEMP 98.1; O2SAT 100
[2023-07-01 23:33] VITALS: BP 117/80
== END 2023-07-01 23:05 | disposition home or self-care (01) ==
LOC: ER 21:13
DX: S06.0X0A Concussion without loss of consciousness, initial encounter (principal)
CPT/HCPCS: 70450; 99283; J2405; Q0162

== ENCOUNTER 2024-02-05 12:09 | Emergency (ER) | payer OTHER ==
--- OUTSIDE RECORDS SUMMARY | 2024-02-05 12:16 | XMS REPORT | Continuity of Care Document ---
Author Name Unknown Address [address] [facility] [address] [place] [address] [facility] Address [address] [facility] [address] [place] [address] Care Team Providers Care Associate Professor Of Law Name Role Phone MALLY HENRY Primary Care Physician Unav ailELAN Fischer Attending Clinician Unavailable MALLY HENRY Attending Clinician Unavail able HAFSA SMART Attending Clinician Unavailchris frye Provider, Flako Temp Attending Clinician Shauna vailaHafsa Frost CNM Attending Clinician [phone] Doctor Unassigned, [place] Attending Clinician U navailGIANNI Agudelo Attending Clinician Unavailab bree Gil PROJECT COACHGianni Zimmerman Attending Clinician + [phone] Mally Kruse Attending Clinician + Edel Carballo MD Attending Clinician [phone] Verito Davis MD, Shankar Attending Clinician + Juan Francisco Garcia MD Attending Clinician [phone] Lab, Flako Attending Clinician Unavailable Ultrasound, Ang-Mfm Attending Clinician Unavaila ble Joanne Nogueira MD Attending Clinician [phone] Olivier Jaramillo MD Attending Clinician [phone] Ange Weaver MD Attending Clinician [phone] Estela Esposito Attending Clinician Unavail able Amy Bartlett MD Attending Clinician [phone] Emma Francis Attending Clinician Unavailable Allan PEREZ, Last Burns Attending Clinician [phone] AMY BARTLETT Attending Clinician Unavailable AMY BARTLETT Attending Clinician Unavailable Faculty, [facility] Attending Clinician Unava ilJUAN FRANCISCO Vásquez Admitting Clinician Unavailable Edel Carballo MD Admitting Clinician Juan Francisco Garcia MD Admitting Clinician [phone] Payers Payer Name Policy Type Policy Number Effective Date Expirati on Date Source [employer] MEDICAID [id number] 2020 00:00:00 [employer] 5 O [employer]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 9 [id number] 2023 00:00:00 MEDICA[place] [id number] 2019 00:00:00 Problems Condition Name Condition Details Condition Category Status Onset Date Resolution Date Last Treatment Date Treating Clinician Comments Source Bleeding after intercours e Bleeding after intercours e Disease Active 11-15 00:00: 00 [facility] Family history of breast cancer gene mutation in first degree relative Family history of breast cancer gene mutation in first degree relative Disease Active 11-15 00:00: 00 [facility] Family history of breast cancer in first degree relative Family history of breast cancer in first degree relative Disease Active 11-15 00:00: 00 [facility] S/P tubal ligation S/P tubal ligation Disease Active 2019-10 00:00: 00 [facility] ROM (rupture of membranes) , premature ROM (rupture of membranes) , premature Disease Active 2019-10 00:00: 00 [facility] Obesity (BMI 30-39.9) Obesity (BMI 30-39.9) Disease Active 2019-10 00:00: 00 [facility] Anemia of mother in , antepartum Anemia of mother in , antepartum Disease Active 2020-1 0-19 00:00: 00 [facility] Heartburn in Heartburn in Disease Active 2020-0 9-11 00:00: 00 [facility] epistaxis epistaxis Disease Active 2020-0 7-14 00:00: 00 [facility] epistaxis epistaxis Disease Active 2020-0 7-14 00:00: 00 [facility] Supervisio n of high-risk Supervisio n of high-risk Disease Active 2020-0 5-18 00:00: 00 [facility] Multiparit y Multiparit y Disease Active 2020-0 5-18 00:00: 00 [facility] History of miscarriag e History of miscarriag e Disease Active 2020-0 5-18 00:00: 00 [facility] Depression during Depression during Disease Active 20200 4-03 00:00: 00 [facility] Generalize d anxiety disorder Generalize d anxiety disorder Disease Active 2020-0 4-03 00:00: 00 [facility] Major depressive disorder Major depressive disorder Disease Active 2020-0 4-03 00:00: 00 [facility] Nausea and vomiting during Nausea and vomiting during Disease Active 2020-0 4-03 00:00: 00 [facility] Rubella non-immune status, antepartum Rubella non-immune status, antepartum Disease Active 20200 3-20 00:00: 00 Overview: Formattin g of this note might be different from the original. Address pp [facility] Supervisio n of high-risk Supervisio n of high-risk Disease Active 2020-0 3-19 00:00: 00 [facility] Contracept kelle management Contracept kelle management Disease Active 20190 4-16 00:00: 00 [facility] (spontaneo us vaginal delivery) (spontaneo us vaginal delivery) Disease Active 2019 3-01 00:00: 00 [facility] Single live Single live Disease Active 20190 3-01 00:00: 00 [facility] 38 weeks gestation of 38 weeks gestation of Disease Active 2017-10 2-29 00:00: 00 [facility] Rubella non-immune status, antepartum Rubella non-immune status, antepartum Disease Active 04-24 00:00: 00 Overview: Address pp [facility] History of cleft palate History of cleft palate Disease Active 04-23 00:00: 00 Overview: Formattin g of this note might be different from the original. 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 04-23 00:00: 00 [facility] Pain pelvic Pain pelvic Disease Active 04-27 00:00: 00 [facility] Dysmenorrh ea Dysmenorrh ea Disease Active 04-08 00:00: 00 [facility] Allergies, Adverse Reactions, Alerts Allergy Name Allergy Type Status Severity Reaction(s) Onset Date Inactive Date Treating Clinician Comments Source CEFPROZI L DRUG INGREDI Active Hives 12-12 00:00: 00 [facility] Cefprozi l Propensi ty to adverse reaction s Active Hives 12-12 00:00: 00 [facility] Social History Social Habit Start Date Stop Date Quantity Comments Source ASSERTION 2019-12-06 00:00:00 [facility] Exposure to SARS-CoV-2 (event) 2022-12-31 00:00:00 2023-01-10 14:55:00 Not sure [facility] Alcohol Comment 2022-11-15 00:00:00 2022-11-15 00:00:00 rarely for cans of beer , once a month for wine [facility] History of Social function 2022-11-15 00:00:00 2022-11-15 00:00:00 [facility] Tobacco use and exposure 2022-11-15 00:00:00 2022-11-15 00:00:00 Smokeless tobacco non-user [facility] Alcohol intake 2022-11-15 00:00:00 2022-11-15 00:00:00 .14 /d [facility] Education 2020-08-14 00:00:00 2020-08-14 00:00:00 11 [facility] History SDOH Financial 2020-08-14 00:00:00 2020-08-14 00:00:00 4 [facility] Sex Assigned At 1995 00:00:00 1995 00:00:00 [facility] Smoking Status Start Date Stop Date Source Never smoked tobacco [facility] Medications Ordered Medication Name Filled Medication Name Start Date Stop Date Current Medication? Ordering Clinician Indication Dosage Frequency Signature (SIG) Comments Components Source metroNIDAZO LE 500 mg tablet 11-17 00:00: 00 11-25 05:59 :00 No [id number] 500mg Take 1 tablet by mouth in the morning and 1 tablet in the evening. Do all this for 7 days. [facility] PARoxetine 40 mg tablet 11-15 08:46: 56 Yes [id number] 40mg Take 40 mg by mouth in the morning. [facility] amoxicillin 500 mg capsule 10-26 00:00: 00 11-15 00:00 :00 No 1{capsu le} Take 1 capsule by mouth in the morning. [facility] acetaminoph en 325 mg tablet 2019-10 00:00: 00 11-15 00:00 :00 No [id number] 650mg Take 2 tablets by mouth every 6 (six) hours as needed for Pain (scale 1-3). [facility] docusate calcium 240 mg capsule 2019-10 00:00: 00 11-15 00:00 :00 No [id number] 240mg Take 1 capsule by mouth once daily as needed for Constipati on. [facility] vitamin w/FA tablet 2019-10 00:00: 00 11-15 00:00 :00 No [id number] 1{tbl} Take 1 tablet by mouth daily. [facility] ibuprofen 600 mg tablet 2019-10 00:00: 00 11-15 00:00 :00 No [id number] 600mg Take 1 tablet by mouth every 6 (six) hours as needed for Pain (scale 4-6). [facility] measles, mumps + rubella vac (M-M-R II) 1,000-12,50 0 TCID50/0.5 mL injection 0.5 mL 2019-10 18:00: 00 08-16 16:57 :00 No .5mL 0.5 mL, Subcutaneo us, ONCE, 1 dose, 08/16/20 at 1200, Routine [facility] vitamin w/FA tablet 2019-10 00:00: 00 Yes [id number] 1{tbl} Take 1 tablet by mouth daily. [facility] docusate calcium 240 mg capsule 2019-10 00:00: 00 Yes [id number] 240mg Take 1 capsule by mouth once daily as needed for Constipati on. [facility] ibuprofen 600 mg tablet 2019-10 00:00: 00 Yes [id number] 600mg Take 1 tablet by mouth every 6 (six) hours as needed (Pain). Take with food or milk. [facility] ferrous sulfate 325 mg (65 mg iron) tablet 2019-10 00:00: 00 11-15 00:00 :00 No [id number] 325mg Take 1 tablet by mouth 2 (two) times daily. [facility] acetaminoph en 325 mg tablet 2019-10 00:00: 08-17 04:59 :00 No [id number] 650mg Take 2 tablets by mouth every 6 (six) hours as needed for Pain (scale 1-3). [facility] measles, mumps + rubella vac 1,000-12,50 0 TCID50/0.5 mL injection 2019-10 00:00: 00 08-17 05:59 :00 No [id number] .5mL inject 0.5 mL under the skin once now for 1 dose. [facility] HYDROcodone -acetaminop hen (NORCO 5) 5-325 mg tablet 2 tablet 2019-10 14:50: 03 Yes 2{tbl} 2 tablet, Oral, Q6HPRN, Starting 08/15/20 at 0950, Until Discontinu ed, Routine, Pain (scale 7-10) [facility] lactated ringers IV infusion 2019-10 13:42: 00 08-15 23:29 :23 No IV Infusion, CONTINUOUS PRN, Starting 08/15/20 at 0842, Until Discontinu ed, Routine, Intra-op [facility] sodium citrate-cit lana acid (BICITRA) 500-334 mg/5 mL solution 30 mL 2019-10 13:15: 00 08-15 13:32 :00 No 30mL 30 mL, Oral, ONCE, 1 dose, 08/15/20 at 0830, Routine [facility] rho(D) immune globulin (RHOGAM) syringe 300 mcg 2019-10 03:12: 24 Yes 300ug 300 mcg, Intramuscu lar, ONCE, For 1 dose, Conditiona l, Routine [facility] ibuprofen (IBU) tablet 600 mg 2019-10 03:12: 19 Yes 600mg 600 mg, Oral, Q6HPRN, Starting 08/14/20 at 2212, Until Discontinu ed, Routine, Pain (scale 4-6) [facility] diphenhydrA MINE-0.9 % sod.chlr (BENADRYL) 25 mg/50 mL piggyback 25 mg 2019-10 03:12: 19 Yes 25mg 25 mg, IV Piggyback, Q6HPRN, Starting Mon08/14/20 at 221, Until Discontinu ed, 50 mL [facility] ondansetron (ZOFRAN (PF)) injection 4 mg 2019-10 03:12: 19 Yes 4mg 4 mg, Slow IV Push, Q8HPRN, Starting Mon08/14/20 at 2211, Until Discontinu ed, Routine, Nausea and Vomiting (N/V) [facility] simethicone (GAS RELIEF (SIMETHICON E)) chewable tablet 160 mg 2019-10 03:12: 19 Yes 160mg 160 mg, Oral, PC+HSPRN, Starting Mon08/14/20 at 2212, Until Discontinu ed, Routine, Gas [facility] docusate calcium (SURFAK) capsule 240 mg 2019-10 03:12: 19 Yes 240mg 240 mg, Oral, QDAILYPRN, Starting Mon08/14/20 at 221, Until Discontinu ed, Routine, Constipati on [facility] magnesium hydroxide (MILK OF MAGNESIA) 400 mg/5 mL suspension 30 mL 2019-10 03:12: 19 Yes 30mL 30 mL, Oral, QDAILYPRN, Starting Mon08/14/20 at 2211, Until Discontinu ed, Routine, Constipati on [facility] acetaminoph en (TYLENOL) tablet 650 mg 2019-10 03:12: 18 Yes 650mg 650 mg, Oral, Q6HPRN, Starting Mon08/14/20 at 2211, Until Discontinu ed, Routine, Pain (scale 1-3) [facility] diphenhydrA MINE (BENADRYL) tablet 25 mg 2019-10 03:12: 18 Yes 25mg 25 mg, Oral, Q6HPRN, Starting Mon08/14/20 at 2211, Until Discontinu ed, Routine, Sleep, Itching [facility] benzocaine- menthol (DERMOPLAST ) 20-0.5 % topical spray 2019-10 03:12: 18 Yes Topical, PRN, Starting Mon08/14/20 at 221, Until Discontinu ed, Routine, Perineum discomfort [facility] diphenhydrA MINE (BENADRYL) injection 25 mg 2019-10 23:30: 00 08-14 23:38 :00 No 25mg 25 mg, Slow IV Push, ONCE, 1 dose, Mon08/14/20 at 1845, Routine [facility] sodium citrate-cit lana acid (BICITRA) 500-334 mg/5 mL solution 30 mL 2019-10 17:55: 09 08-14 18:31 :00 No 30mL 30 mL, Oral, PRE-PROCED URE ONCE, 1 dose, Starting Mon08/14/20 at 1255, Until Mon08/14/20 at 1331, Routine, Surgery/Pr ocedure [facility] lactated ringers IV infusion 500 mL 2019-10 17:55: 09 08-14 18:31 :00 No 500mL at 999 mL/hr, 500 mL, IV Infusion, PRN - SEE INSTRUCTIO NS, 1 dose, Starting Mon08/14/20 at 1255, Until Mon08/14/20 at 1331, Routine [facility] terbutaline (BRETHINE) injection 0.25 mg 2019-10 13:09: 00 08-14 13:11 :00 No .25mg 0.25 mg, Subcutaneo us, ONCE, 1 dose, Mon08/14/20 at 0815, Routine [facility] D5W-LR IV infusion 1,000 mL 2019-10 10:00: 00 08-15 03:12 :25 No 1000mL at 125 mL/hr, IV Infusion, CONTINUOUS , Starting Mon08/14/20 at 0500, Until Mon08/14/20 at 2212, Routine [facility] proMETHazin e (PHENERGAN) 25 mg in NaCl 0.9% (NS) 50 mL piggyback 2019-10 09:58: 29 08-15 03:12 :25 No 25mg 25 mg, IV Piggyback, Q4HPRN, Starting Mon08/14/20 at 0458, Until Mon08/14/20 at 2212, 50 mL [facility] FENTanyl PF (SUBLIMAZE (PF)) injection 100 mcg 2019-10 09:58: 14 08-15 03:12 :25 No 100ug 100 mcg, Slow IV Push, Q1HPRN, Starting Mon08/14/20 at 0458, Until Mon08/14/20 at 2212, Routine, Pain (scale 4-6), Pain (scale 7-10) [facility] LR 1000 mL + oxytocin 20 units IV Solution 2019-10 09:45: 00 08-15 03:12 :25 No 2mU/min at 6-120 mL/hr, IV Infusion, TITRATE, Starting Mon08/14/20 at 0445, Until Mon08/14/20 at 2212, VEENA [facility] ascorbic acid, vitamin C, 500 mg tablet 2019-10 0- 00:00: 00 08-16 00:00 :00 No [id number] 500mg Take 1 tablet by mouth 3 (three) times daily. [facility] ferrous sulfate 325 mg (65 mg iron) tablet 2019-10 0 00:00: 00 08-16 00:00 :00 No [id number] 325mg Take 1 tablet by mouth 2 (two) times daily. [facility] SERTraline (ZOLOFT) 50 mg tablet 01-19 00:00: 00 11-15 00:00 :00 No [id number] 50mg Take 1 tablet by mouth daily. [facility] proMETHazin e 25 mg tablet 3- 00:00: 00 08-16 00:00 :00 No [id number] 25mg Take 1 tablet by mouth every 6 (six) hours as needed for Nausea and Vomiting (N/V). [facility] No known medications No Un clayton [facility] Immunizations Ordered Immunization Name Filled Immunization Name Date Status Comments Source SARS-COV-2 COVID-19 VACCINE - (MODERNA) 2021-04-14 00:00:00 Completed [facility] SARS-COV-2 COVID-19 VACCINE - (MODERNA) 2021-04-14 00:00:00 Completed [facility] SARS-COV-2 COVID-19 VACCINE - (MODERNA) 2021-04-14 00:00:00 Completed [facility] SARS-COV-2 COVID-19 VACCINE - (MODERNA) 2021-04-14 00:00:00 Completed [facility] SARS-COV-2 COVID-19 VACCINE - (MODERNA) 2021-04-14 00:00:00 Completed [facility] SARS-COV-2 COVID-19 VACCINE - (MODERNA) 2021-04-14 00:00:00 Completed [facility] SARS-COV-2 COVID-19 VACCINE - (MODERNA) 2021-03-17 00:00:00 Completed [facility] SARS-COV-2 COVID-19 VACCINE - (MODERNA) 2021-03-17 00:00:00 Completed [facility] SARS-COV-2 COVID-19 VACCINE - (MODERNA) 2021-03-17 00:00:00 Completed [facility] SARS-COV-2 COVID-19 VACCINE - (MODERNA) 2021-03-17 00:00:00 Completed [facility] SARS-COV-2 COVID-19 VACCINE - (MODERNA) 2021-03-17 00:00:00 Completed [facility] SARS-COV-2 COVID-19 VACCINE - (MODERNA) 2021-03-17 00:00:00 Completed [facility] MMR 2020-08-16 00:00:00 Completed [facility] MMR 2020-08-16 00:00:00 Completed [facility] MMR 2020-08-16 00:00:00 Completed [facility] MMR 2020-08-16 00:00:00 Completed [facility] MMR 2020-08-16 00:00:00 Completed [facility] MMR 2020-08-16 00:00:00 Completed [facility] MMR 2020-08-16 00:00:00 Completed [facility] MMR 2020-08-16 00:00:00 Completed [facility] MMR 2020-08-16 00:00:00 Completed [facility] MMR 2020-08-16 00:00:00 Completed [facility] Influenza Virus Vaccine Quad .5 mL IM 6+ MO 2020-01-02 00:00:00 Completed [facility] Influenza Virus Vaccine Quad .5 mL IM 6+ MO 2020-01-02 00:00:00 Completed [facility] Influenza Virus Vaccine Quad .5 mL IM 6+ MO 2020-01-02 00:00:00 Completed [facility] Influenza Virus Vaccine Quad .5 mL IM 6+ MO 2020-01-02 00:00:00 Completed [facility] Influenza Virus Vaccine Quad .5 mL IM 6+ MO 2020-01-02 00:00:00 Completed [facility] Influenza Virus Vaccine Quad .5 mL IM 6+ MO 2020-01-02 00:00:00 Completed [facility] Influenza Virus Vaccine Quad .5 mL IM 6+ MO 2020-01-02 00:00:00 Completed [facility] Influenza Virus Vaccine Quad .5 mL IM 6+ MO 2020-01-02 00:00:00 Completed [facility] Influenza Virus Vaccine Quad .5 mL IM 6+ MO 2020-01-02 00:00:00 Completed [facility] Influenza Virus Vaccine Quad .5 mL IM 6+ MO 2020-01-02 00:00:00 Completed [facility] Influenza Virus Vaccine Quad .5 mL IM 6+ MO 2020-01-02 00:00:00 Completed [facility] Influenza Virus Vaccine Quad .5 mL IM 6+ MO 2020-01-02 00:00:00 Completed [facility] Influenza Virus Vaccine Quad .5 mL IM 6+ MO 2020-01-02 00:00:00 Completed [facility] Influenza Virus Vaccine Quad .5 mL IM 6+ MO 2020-01-02 00:00:00 Completed [facility] Influenza Virus Vaccine Quad .5 mL IM 6+ MO 2020-01-02 00:00:00 Completed [facility] Influenza Virus Vaccine Quad .5 mL IM 6+ MO 2020-01-02 00:00:00 Completed [facility] Influenza Virus Vaccine Quad .5 mL IM 6+ MO 2020-01-02 00:00:00 Completed [facility] Influenza Virus Vaccine Quad .5 mL IM 6+ MO 2020-01-02 00:00:00 Completed [facility] Influenza Virus Vaccine Quad .5 mL IM 6+ MO 2020-01-02 00:00:00 Completed [facility] Influenza Virus Vaccine Quad .5 mL IM 6+ MO 2020-01-02 00:00:00 Completed [facility] Influenza Virus Vaccine Quad .5 mL IM 6+ MO 2020-01-02 00:00:00 Completed [facility] Influenza Virus Vaccine Quad .5 mL IM 6+ MO 2020-01-02 00:00:00 Completed [facility] Influenza Virus Vaccine Quad .5 mL IM 6+ MO 2020-01-02 00:00:00 Completed [facility] Influenza Virus Vaccine Quad .5 mL IM 6+ MO 2020-01-02 00:00:00 Completed [facility] Influenza Virus Vaccine Quad .5 mL IM 6+ MO 2020-01-02 00:00:00 Completed [facility] Influenza Virus Vaccine Quad .5 mL IM 6+ MO 2020-01-02 00:00:00 Completed [facility] Influenza Virus Vaccine Quad .5 mL IM 6+ MO 2020-01-02 00:00:00 Completed [facility] Influenza Virus Vaccine Quad .5 mL IM 6+ MO 2020-01-02 00:00:00 Completed [facility] Influenza Virus Vaccine Quad .5 mL IM 6+ MO 2020-01-02 00:00:00 Completed [facility] Influenza Virus Vaccine Quad .5 mL IM 6+ MO 2020-01-02 00:00:00 Completed [facility] Influenza Virus Vaccine Quad .5 mL IM 6+ MO 2020-01-02 00:00:00 Completed [facility] Influenza Virus Vaccine Quad .5 mL IM 6+ MO 2020-01-02 00:00:00 Completed [facility] Influenza Virus Vaccine Quad .5 mL IM 6+ MO 2020-01-02 00:00:00 Completed [facility] Influenza Virus Vaccine Quad .5 mL IM 6+ MO 2020-01-02 00:00:00 Completed [facility] Influenza Virus Vaccine Quad .5 mL IM 6+ MO 2020-01-02 00:00:00 Completed [facility] Influenza Virus Vaccine Quad .5 mL IM 6+ MO 2020-01-02 00:00:00 Completed [facility] Influenza Virus Vaccine Quad .5 mL IM 6+ MO 2020-01-02 00:00:00 Completed [facility] Influenza Virus Vaccine Quad .5 mL IM 6+ MO 2020-01-02 00:00:00 Completed [facility] Influenza Virus Vaccine Quad .5 mL IM 6+ MO 2020-01-02 00:00:00 Completed [facility] Influenza Virus Vaccine Quad .5 mL IM 6+ MO 2020-01-02 00:00:00 Completed [facility] Influenza Virus Vaccine Quad .5 mL IM 6+ MO 2020-01-02 00:00:00 Completed [facility] Influenza Virus Vaccine Quad .5 mL IM 6+ MO 2020-01-02 00:00:00 Completed [facility] Influenza Virus Vaccine Quad .5 mL IM 6+ MO 2020-01-02 00:00:00 Completed [facility] Influenza Virus Vaccine Quad .5 mL IM 6+ MO 2020-01-02 00:00:00 Completed [facility] Influenza Virus Vaccine Quad .5 mL IM 6+ MO 2020-01-02 00:00:00 Completed [facility] Influenza Virus Vaccine Quad .5 mL IM 6+ MO 2020-01-02 00:00:00 Completed [facility] Influenza Virus Vaccine Quad .5 mL IM 6+ MO 2020-01-02 00:00:00 Completed [facility] Influenza Virus Vaccine Quad .5 mL IM 6+ MO 2020-01-02 00:00:00 Completed [facility] Influenza Virus Vaccine Quad .5 mL IM 6+ MO 2020-01-02 00:00:00 Completed [facility] Influenza Virus Vaccine Quad .5 mL IM 6+ MO 2020-01-02 00:00:00 Completed [facility] Influenza Virus Vaccine Quad .5 mL IM 6+ MO 2020-01-02 00:00:00 Completed [facility] Influenza Virus Vaccine Quad .5 mL IM 6+ MO 2020-01-02 00:00:00 Completed [facility] Influenza Virus Vaccine Quad .5 mL IM 6+ MO 2020-01-02 00:00:00 Completed [facility] Influenza Virus Vaccine Quad .5 mL IM 6+ MO 2020-01-02 00:00:00 Completed [facility] Influenza Virus Vaccine Quad .5 mL IM 6+ MO 2020-01-02 00:00:00 Completed [facility] Influenza Virus Vaccine Quad .5 mL IM 6+ MO 2020-01-02 00:00:00 Completed [facility] Tdap 2018-10-18 00:00:00 Completed [facility] TDAP 2018-10-18 00:00:00 Completed [facility] TDAP 2018-10-18 00:00:00 Completed [facility] TDAP 2018-10-18 00:00:00 Completed [facility] TDAP 2018-10-18 00:00:00 Completed [facility] TDAP 2018-10-18 00:00:00 Completed [facility] TDAP 2018-10-18 00:00:00 Completed [facility] Tdap 2018-10-18 00:00:00 Completed [facility] TDAP 2018-10-18 00:00:00 Completed [facility] Tdap 2018-10-18 00:00:00 Completed [facility] Tdap 2018-10-18 00:00:00 Completed [facility] Tdap 2018-10-18 00:00:00 Completed [facility] Tdap 2018-10-18 00:00:00 Completed [facility] Tdap 2018-10-18 00:00:00 Completed [facility] Tdap 2018-10-18 00:00:00 Completed [facility] Tdap 2018-10-18 00:00:00 Completed [facility] Tdap 2018-10-18 00:00:00 Completed [facility] [facility] 2018-10-18 00:00:00 Completed [facility] Tdap 2018-10-18 00:00:00 Completed [facility] Tdap 2018-10-18 00:00:00 Completed [facility] Tdap 2018-10-18 00:00:00 Completed [facility] Tdap 2018-10-18 00:00:00 Completed [facility] Tdap 2018-10-18 00:00:00 Completed [facility] TDAP 2018-10-18 00:00:00 Completed [facility] TDAP 2018-10-18 00:00:00 Completed [facility] TDAP 2018-10-18 00:00:00 Completed [facility] TDAP 2018-10-18 00:00:00 Completed [facility] TDAP 2018-10-18 00:00:00 Completed [facility] Tdap 2018-10-18 00:00:00 Completed [facility] TDAP 2018-10-18 00:00:00 Completed [facility] TDAP 2018-10-18 00:00:00 Completed [facility] TDAP 2018-10-18 00:00:00 Completed [facility] TDAP 2018-10-18 00:00:00 Completed [facility] TDAP 2018-10-18 00:00:00 Completed [facility] TDAP 2018-10-18 00:00:00 Completed [facility] TDAP 2018-10-18 00:00:00 Completed [facility] TDAP 2018-10-18 00:00:00 Completed [facility] TDAP 2018-10-18 00:00:00 Completed [facility] TDAP 2018-10-18 00:00:00 Completed [facility] TDAP 2018-10-18 00:00:00 Completed [facility] TDAP 2018-10-18 00:00:00 Completed [facility] TDAP 2018-10-18 00:00:00 Completed [facility] TDAP 2018-10-18 00:00:00 Completed [facility] TDAP 2018-10-18 00:00:00 Completed [facility] TDAP 2018-10-18 00:00:00 Completed [facility] TDAP 2018-10-18 00:00:00 Completed [facility] TDAP 2018-10-18 00:00:00 Completed [facility] TDAP 2018-10-18 00:00:00 Completed [facility] Tdap 2018-10-18 00:00:00 Completed [facility] TDAP 2018-10-18 00:00:00 Completed [facility] TDAP 2018-10-18 00:00:00 Completed [facility] TDAP 2018-10-18 00:00:00 Completed [facility] TDAP 2018-10-18 00:00:00 Completed [facility] Tdap 2018-10-18 00:00:00 Completed [facility] TDAP 2018-10-18 00:00:00 Completed [facility] TDAP 2018-10-18 00:00:00 Completed [facility] TDAP 2018-10-18 00:00:00 Completed [facility] Influenza Virus Vaccine Quad IM Multi-dose 6+ MO 2018-08-20 00:00:00 Completed [facility] Influenza Virus Vaccine Quad IM Multi-dose 6+ MO 2018-08-20 00:00:00 Completed [facility] Influenza Virus Vaccine Quad IM Multi-dose 6+ MO 2018-08-20 00:00:00 Completed [facility] Influenza Virus Vaccine Quad IM Multi-dose 6+ MO 2018-08-20 00:00:00 Completed [facility] Influenza Virus Vaccine Quad IM Multi-dose 6+ MO 2018-08-20 00:00:00 Completed [facility] Influenza Virus Vaccine Quad IM Multi-dose 6+ MO 2018-08-20 00:00:00 Completed [facility] Influenza Virus Vaccine Quad IM Multi-dose 6+ MO 2018-08-20 00:00:00 Completed [facility] Influenza Virus Vaccine Quad IM Multi-dose 6+ MO 2018-08-20 00:00:00 Completed [facility] Influenza Virus Vaccine Quad IM Multi-dose 6+ MO 2018-08-20 00:00:00 Completed [facility] Influenza Virus Vaccine Quad IM Multi-dose 6+ MO 2018-08-20 00:00:00 Completed [facility] Influenza Virus Vaccine Quad IM Multi-dose 6+ MO 2018-08-20 00:00:00 Completed [facility] Influenza Virus Vaccine Quad IM Multi-dose 6+ MO 2018-08-20 00:00:00 Completed [facility] Influenza Virus Vaccine Quad IM Multi-dose 6+ MO 2018-08-20 00:00:00 Completed [facility] Influenza Virus Vaccine Quad IM Multi-dose 6+ MO 2018-08-20 00:00:00 Completed [facility] Influenza Virus Vaccine Quad IM Multi-dose 6+ MO 2018-08-20 00:00:00 Completed [facility] Influenza Virus Vaccine Quad IM Multi-dose 6+ MO 2018-08-20 00:00:00 Completed [facility] Influenza Virus Vaccine Quad IM Multi-dose 6+ MO 2018-08-20 00:00:00 Completed [facility] Influenza Virus Vaccine Quad IM Multi-dose 6+ MO 2018-08-20 00:00:00 Completed [facility] Influenza Virus Vaccine Quad IM Multi-dose 6+ MO 2018-08-20 00:00:00 Completed [facility] Influenza Virus Vaccine Quad IM Multi-dose 6+ MO 2018-08-20 00:00:00 Completed [facility] Influenza Virus Vaccine Quad IM Multi-dose 6+ MO 2018-08-20 00:00:00 Completed [facility] Influenza Virus Vaccine Quad IM Multi-dose 6+ MO 2018-08-20 00:00:00 Completed [facility] Influenza Virus Vaccine Quad IM Multi-dose 6+ MO 2018-08-20 00:00:00 Completed [facility] Influenza Virus Vaccine Quad IM Multi-dose 6+ MO 2018-08-20 00:00:00 Completed [facility] Influenza Virus Vaccine Quad IM Multi-dose 6+ MO 2018-08-20 00:00:00 Completed [facility] Influenza Virus Vaccine Quad IM Multi-dose 6+ MO 2018-08-20 00:00:00 Completed [facility] Influenza Virus Vaccine Quad IM Multi-dose 6+ MO 2018-08-20 00:00:00 Completed [facility] Influenza Virus Vaccine Quad IM Multi-dose 6+ MO 2018-08-20 00:00:00 Completed [facility] Influenza Virus Vaccine Quad IM Multi-dose 6+ MO 2018-08-20 00:00:00 Completed [facility] Influenza Virus Vaccine Quad IM Multi-dose 6+ MO 2018-08-20 00:00:00 Completed [facility] Influenza Virus Vaccine Quad IM Multi-dose 6+ MO 2018-08-20 00:00:00 Completed [facility] Influenza Virus Vaccine Quad IM Multi-dose 6+ MO 2018-08-20 00:00:00 Completed [facility] Influenza Virus Vaccine Quad IM Multi-dose 6+ MO 2018-08-20 00:00:00 Completed [facility] Influenza Virus Vaccine Quad IM Multi-dose 6+ MO 2018-08-20 00:00:00 Completed [facility] Influenza Virus Vaccine Quad IM Multi-dose 6+ MO 2018-08-20 00:00:00 Completed [facility] Influenza Virus Vaccine Quad IM Multi-dose 6+ MO 2018-08-20 00:00:00 Completed [facility] Influenza Virus Vaccine Quad IM Multi-dose 6+ MO 2018-08-20 00:00:00 Completed [facility] Influenza Virus Vaccine Quad IM Multi-dose 6+ MO 2018-08-20 00:00:00 Completed [facility] Influenza Virus Vaccine Quad IM Multi-dose 6+ MO 2018-08-20 00:00:00 Completed [facility] Influenza Virus Vaccine Quad IM Multi-dose 6+ MO 2018-08-20 00:00:00 Completed [facility] Influenza Virus Vaccine Quad IM Multi-dose 6+ MO 2018-08-20 00:00:00 Completed [facility] Influenza Virus Vaccine Quad IM Multi-dose 6+ MO 2018-08-20 00:00:00 Completed [facility] Influenza Virus Vaccine Quad IM Multi-dose 6+ MO 2018-08-20 00:00:00 Completed [facility] Influenza Virus Vaccine Quad IM Multi-dose 6+ MO 2018-08-20 00:00:00 Completed [facility] Influenza Virus Vaccine Quad IM Multi-dose 6+ MO 2018-08-20 00:00:00 Completed [facility] Influenza Virus Vaccine Quad IM Multi-dose 6+ MO 2018-08-20 00:00:00 Completed [facility] Influenza Virus Vaccine Quad IM Multi-dose 6+ MO 2018-08-20 00:00:00 Completed [facility] Influenza Virus Vaccine Quad IM Multi-dose 6+ MO 2018-08-20 00:00:00 Completed [facility] Influenza Virus Vaccine Quad IM Multi-dose 6+ MO 2018-08-20 00:00:00 Completed [facility] Influenza Virus Vaccine Quad IM Multi-dose 6+ MO 2018-08-20 00:00:00 Completed [facility] Influenza Virus Vaccine Quad IM Multi-dose 6+ MO 2018-08-20 00:00:00 Completed [facility] Influenza Virus Vaccine Quad IM Multi-dose 6+ MO 2018-08-20 00:00:00 Completed [facility] Influenza Virus Vaccine Quad IM Multi-dose 6+ MO 2018-08-20 00:00:00 Completed [facility] Influenza Virus Vaccine Quad IM Multi-dose 6+ MO 2018-08-20 00:00:00 Completed [facility] Influenza Virus Vaccine Quad IM Multi-dose 6+ MO 2018-08-20 00:00:00 Completed [facility] Influenza Virus Vaccine Quad IM Multi-dose 6+ MO 2018-08-20 00:00:00 Completed [facility] Influenza Virus Vaccine Quad IM Multi-dose 6+ MO 2018-08-20 00:00:00 Completed [facility] HPV 2015-05-06 00:00:00 Completed [facility] HPV 2015-05-06 00:00:00 Completed [facility] HPV 2015-05-06 00:00:00 Completed [facility] HPV 2015-05-06 00:00:00 Completed [facility] HPV 2015-05-06 00:00:00 Completed [facility] HPV 2015-05-06 00:00:00 Completed [facility] HPV 2015-05-06 00:00:00 Completed [facility] HPV 2015-05-06 00:00:00 Completed [facility] HPV 2015-05-06 00:00:00 Completed [facility] HPV 2015-05-06 00:00:00 Completed [facility] HPV 2015-05-06 00:00:00 Completed [facility] HPV 2015-05-06 00:00:00 Completed [facility] HPV 2015-05-06 00:00:00 Completed [facility] HPV 2015-05-06 00:00:00 Completed [facility] HPV 2015-05-06 00:00:00 Completed [facility] HPV 2015-05-06 00:00:00 Completed [facility] HPV 2015-05-06 00:00:00 Completed [facility] HPV 2015-05-06 00:00:00 Completed [facility] HPV 2015-05-06 00:00:00 Completed [facility] HPV 2015-05-06 00:00:00 Completed [facility] HPV 2015-05-06 00:00:00 Completed [facility] HPV 2015-05-06 00:00:00 Completed [facility] HPV 2015-05-06 00:00:00 Completed [facility] HPV 2015-05-06 00:00:00 Completed [facility] HPV 2015-05-06 00:00:00 Completed [facility] HPV 2015-05-06 00:00:00 Completed [facility] HPV 2015-05-06 00:00:00 Completed [facility] HPV 2015-05-06 00:00:00 Completed [facility] HPV 2015-05-06 00:00:00 Completed [facility] HPV 2015-05-06 00:00:00 Completed [facility] HPV 2015-05-06 00:00:00 Completed [facility] HPV 2015-05-06 00:00:00 Completed [facility] HPV 2015-05-06 00:00:00 Completed [facility] HPV 2015-05-06 00:00:00 Completed [facility] HPV 2015-05-06 00:00:00 Completed [facility] HPV 2015-05-06 00:00:00 Completed [facility] HPV 2015-05-06 00:00:00 Completed [facility] HPV 2015-05-06 00:00:00 Completed [facility] HPV 2015-05-06 00:00:00 Completed [facility] HPV 2015-05-06 00:00:00 Completed [facility] HPV 2015-05-06 00:00:00 Completed [facility] HPV 2015-05-06 00:00:00 Completed [facility] HPV 2015-05-06 00:00:00 Completed [facility] HPV 2015-05-06 00:00:00 Completed [facility] HPV 2015-05-06 00:00:00 Completed [facility] HPV 2015-05-06 00:00:00 Completed [facility] HPV 2015-05-06 00:00:00 Completed [facility] HPV 2015-05-06 00:00:00 Completed [facility] HPV 2015-05-06 00:00:00 Completed [facility] HPV 2015-05-06 00:00:00 Completed [facility] HPV 2015-05-06 00:00:00 Completed [facility] HPV 2015-05-06 00:00:00 Completed [facility] HPV 2015-05-06 00:00:00 Completed [facility] HPV 2015-05-06 00:00:00 Completed [facility] HPV 2015-05-06 00:00:00 Completed [facility] HPV 2015-05-06 00:00:00 Completed [facility] HPV 2015-05-06 00:00:00 Completed [facility] HPV 2015-01-02 00:00:00 Completed [facility] MMR 2015-01-02 00:00:00 Completed [facility] HPV 2015-01-02 00:00:00 Completed [facility] MMR 2015-01-02 00:00:00 Completed [facility] HPV 2015-01-02 00:00:00 Completed [facility] MMR 2015-01-02 00:00:00 Completed [facility] HPV 2015-01-02 00:00:00 Completed [facility] MMR 2015-01-02 00:00:00 Completed [facility] HPV 2015-01-02 00:00:00 Completed [facility] MMR 2015-01-02 00:00:00 Completed [facility] HPV 2015-01-02 00:00:00 Completed [facility] HPV 2015-01-02 00:00:00 Completed [facility] MMR 2015-01-02 00:00:00 Completed [facility] MMR 2015-01-02 00:00:00 Completed [facility] HPV 2015-01-02 00:00:00 Completed [facility] MMR 2015-01-02 00:00:00 Completed [facility] HPV 2015-01-02 00:00:00 Completed [facility] MMR 2015-01-02 00:00:00 Completed [facility] HPV 2015-01-02 00:00:00 Completed [facility] MMR 2015-01-02 00:00:00 Completed [facility] HPV 2015-01-02 00:00:00 Completed [facility] MMR 2015-01-02 00:00:00 Completed [facility] HPV 2015-01-02 00:00:00 Completed [facility] MMR 2015-01-02 00:00:00 Completed [facility] HPV 2015-01-02 00:00:00 Completed [facility] MMR 2015-01-02 00:00:00 Completed [facility] HPV 2015-01-02 00:00:00 Completed [facility] HPV 2015-01-02 00:00:00 Completed [facility] MMR 2015-01-02 00:00:00 Completed [facility] MMR 2015-01-02 00:00:00 Completed [facility] HPV 2015-01-02 00:00:00 Completed [facility] MMR 2015-01-02 00:00:00 Completed [facility] HPV 2015-01-02 00:00:00 Completed [facility] MMR 2015-01-02 00:00:00 Completed [facility] HPV 2015-01-02 00:00:00 Completed [facility] MMR 2015-01-02 00:00:00 Completed [facility] HPV 2015-01-02 00:00:00 Completed [facility] MMR 2015-01-02 00:00:00 Completed [facility] HPV 2015-01-02 00:00:00 Completed [facility] MMR 2015-01-02 00:00:00 Completed [facility] HPV 2015-01-02 00:00:00 Completed [facility] MMR 2015-01-02 00:00:00 Completed [facility] HPV 2015-01-02 00:00:00 Completed [facility] MMR 2015-01-02 00:00:00 Completed [facility] HPV 2015-01-02 00:00:00 Completed [facility] MMR 2015-01-02 00:00:00 Completed [facility] HPV 2015-01-02 00:00:00 Completed [facility] MMR 2015-01-02 00:00:00 Completed [facility] HPV 2015-01-02 00:00:00 Completed [facility] MMR 2015-01-02 00:00:00 Completed [facility] HPV 2015-01-02 00:00:00 Completed [facility] MMR 2015-01-02 00:00:00 Completed [facility] HPV 2015-01-02 00:00:00 Completed [facility] HPV 2015-01-02 00:00:00 Completed [facility] MMR 2015-01-02 00:00:00 Completed [facility] MMR 2015-01-02 00:00:00 Completed [facility] HPV 2015-01-02 00:00:00 Completed [facility] MMR 2015-01-02 00:00:00 Completed [facility] HPV 2015-01-02 00:00:00 Completed [facility] MMR 2015-01-02 00:00:00 Completed [facility] HPV 2015-01-02 00:00:00 Completed [facility] MMR 2015-01-02 00:00:00 Completed [facility] HPV 2015-01-02 00:00:00 Completed [facility] MMR 2015-01-02 00:00:00 Completed [facility] HPV 2015-01-02 00:00:00 Completed [facility] MMR 2015-01-02 00:00:00 Completed [facility] HPV 2015-01-02 00:00:00 Completed [facility] MMR 2015-01-02 00:00:00 Completed [facility] HPV 2015-01-02 00:00:00 Completed [facility] MMR 2015-01-02 00:00:00 Completed [facility] HPV 2015-01-02 00:00:00 Completed [facility] MMR 2015-01-02 00:00:00 Completed [facility] HPV 2015-01-02 00:00:00 Completed [facility] MMR 2015-01-02 00:00:00 Completed [facility] HPV 2015-01-02 00:00:00 Completed [facility] MMR 2015-01-02 00:00:00 Completed [facility] HPV 2015-01-02 00:00:00 Completed [facility] MMR 2015-01-02 00:00:00 Completed [facility] HPV 2015-01-02 00:00:00 Completed [facility] MMR 2015-01-02 00:00:00 Completed [facility] HPV 2015-01-02 00:00:00 Completed [facility] MMR 2015-01-02 00:00:00 Completed [facility] HPV 2015-01-02 00:00:00 Completed [facility] MMR 2015-01-02 00:00:00 Completed [facility] HPV 2015-01-02 00:00:00 Completed [facility] MMR 2015-01-02 00:00:00 Completed [facility] HPV 2015-01-02 00:00:00 Completed [facility] MMR 2015-01-02 00:00:00 Completed [facility] HPV 2015-01-02 00:00:00 Completed [facility] MMR 2015-01-02 00:00:00 Completed [facility] HPV 2015-01-02 00:00:00 Completed [facility] MMR 2015-01-02 00:00:00 Completed [facility] HPV 2015-01-02 00:00:00 Completed [facility] MMR 2015-01-02 00:00:00 Completed [facility] HPV 2015-01-02 00:00:00 Completed [facility] MMR 2015-01-02 00:00:00 Completed [facility] HPV 2015-01-02 00:00:00 Completed [facility] MMR 2015-01-02 00:00:00 Completed [facility] HPV 2015-01-02 00:00:00 Completed [facility] MMR 2015-01-02 00:00:00 Completed [facility] HPV 2015-01-02 00:00:00 Completed [facility] MMR 2015-01-02 00:00:00 Completed [facility] HPV 2015-01-02 00:00:00 Completed [facility] MMR 2015-01-02 00:00:00 Completed [facility] HPV 2015-01-02 00:00:00 Completed [facility] HPV 2015-01-02 00:00:00 Completed [facility] MMR 2015-01-02 00:00:00 Completed [facility] MMR 2015-01-02 00:00:00 Completed [facility] HPV 2015-01-02 00:00:00 Completed [facility] MMR 2015-01-02 00:00:00 Completed [facility] HPV 2015-01-02 00:00:00 Completed [facility] MMR 2015-01-02 00:00:00 Completed [facility] HPV 2015-01-02 00:00:00 Completed [facility] MMR 2015-01-02 00:00:00 Completed [facility] HPV 2014-11-06 00:00:00 Completed [facility] HPV 2014-11-06 00:00:00 Completed [facility] HPV 2014-11-06 00:00:00 Completed [facility] HPV 2014-11-06 00:00:00 Completed [facility] HPV 2014-11-06 00:00:00 Completed [facility] HPV 2014-11-06 00:00:00 Completed [facility] HPV 2014-11-06 00:00:00 Completed [facility] HPV 2014-11-06 00:00:00 Completed [facility] HPV 2014-11-06 00:00:00 Completed [facility] HPV 2014-11-06 00:00:00 Completed [facility] HPV 2014-11-06 00:00:00 Completed [facility] HPV 2014-11-06 00:00:00 Completed [facility] HPV 2014-11-06 00:00:00 Completed [facility] HPV 2014-11-06 00:00:00 Completed [facility] HPV 2014-11-06 00:00:00 Completed [facility] HPV 2014-11-06 00:00:00 Completed [facility] HPV 2014-11-06 00:00:00 Completed [facility] HPV 2014-11-06 00:00:00 Completed [facility] HPV 2014-11-06 00:00:00 Completed [facility] HPV 2014-11-06 00:00:00 Completed [facility] HPV 2014-11-06 00:00:00 Completed [facility] HPV 2014-11-06 00:00:00 Completed [facility] HPV 2014-11-06 00:00:00 Completed [facility] HPV 2014-11-06 00:00:00 Completed [facility] HPV 2014-11-06 00:00:00 Completed [facility] HPV 2014-11-06 00:00:00 Completed [facility] HPV 2014-11-06 00:00:00 Completed [facility] HPV 2014-11-06 00:00:00 Completed [facility] HPV 2014-11-06 00:00:00 Completed [facility] HPV 2014-11-06 00:00:00 Completed [facility] HPV 2014-11-06 00:00:00 Completed [facility] HPV 2014-11-06 00:00:00 Completed [facility] HPV 2014-11-06 00:00:00 Completed [facility] HPV 2014-11-06 00:00:00 Completed [facility] HPV 2014-11-06 00:00:00 Completed [facility] HPV 2014-11-06 00:00:00 Completed [facility] HPV 2014-11-06 00:00:00 Completed [facility] HPV 2014-11-06 00:00:00 Completed [facility] HPV 2014-11-06 00:00:00 Completed [facility] HPV 2014-11-06 00:00:00 Completed [facility] HPV 2014-11-06 00:00:00 Completed [facility] HPV 2014-11-06 00:00:00 Completed [facility] HPV 2014-11-06 00:00:00 Completed [facility] HPV 2014-11-06 00:00:00 Completed [facility] HPV 2014-11-06 00:00:00 Completed [facility] HPV 2014-11-06 00:00:00 Completed [facility] HPV 2014-11-06 00:00:00 Completed [facility] HPV 2014-11-06 00:00:00 Completed [facility] HPV 2014-11-06 00:00:00 Completed [facility] HPV 2014-11-06 00:00:00 Completed [facility] HPV 2014-11-06 00:00:00 Completed [facility] HPV 2014-11-06 00:00:00 Completed [facility] HPV 2014-11-06 00:00:00 Completed [facility] HPV 2014-11-06 00:00:00 Completed [facility] HPV 2014-11-06 00:00:00 Completed [facility] HPV 2014-11-06 00:00:00 Completed [facility] HPV 2014-11-06 00:00:00 Completed [facility] Td 2008-10-16 00:00:00 Completed [facility] TD, NOS 2008-10-16 00:00:00 Completed [facility] TD, NOS 2008-10-16 00:00:00 Completed [facility] TD, NOS 2008-10-16 00:00:00 Completed [facility] Td 2008-10-16 00:00:00 Completed [facility] TD, NOS 2008-10-16 00:00:00 Completed [facility] TD, NOS 2008-10-16 00:00:00 Completed [facility] TD, NOS 2008-10-16 00:00:00 Completed [facility] TD, NOS 2008-10-16 00:00:00 Completed [facility] Td 2008-10-16 00:00:00 Completed [facility] Td 2008-10-16 00:00:00 Completed [facility] Td 2008-10-16 00:00:00 Completed [facility] Td 2008-10-16 00:00:00 Completed [facility] Td 2008-10-16 00:00:00 Completed [facility] Td 2008-10-16 00:00:00 Completed [facility] Td 2008-10-16 00:00:00 Completed [facility] Td 2008-10-16 00:00:00 Completed [facility] Td 2008-10-16 00:00:00 Completed [facility] Td 2008-10-16 00:00:00 Completed [facility] Td 2008-10-16 00:00:00 Completed [facility] Td 2008-10-16 00:00:00 Completed [facility] Td 2008-10-16 00:00:00 Completed [facility] Td 2008-10-16 00:00:00 Completed [facility] Td 2008-10-16 00:00:00 Completed [facility] Td 2008-10-16 00:00:00 Completed [facility] Td 2008-10-16 00:00:00 Completed [facility] Td 2008-10-16 00:00:00 Completed [facility] Td 2008-10-16 00:00:00 Completed [facility] 2008-10-16 00:00:00 Completed [facility] 2008-10-16 00:00:00 Completed [facility] 2008-10-16 00:00:00 Completed [facility] 2008-10-16 00:00:00 Completed [facility] 2008-10-16 00:00:00 Completed [facility] 2008-10-16 00:00:00 Completed [facility] 2008-10-16 00:00:00 Completed [facility] 2008-10-16 00:00:00 Completed [facility] 2008-10-16 00:00:00 Completed [facility] 2008-10-16 00:00:00 Completed [facility] 2008-10-16 00:00:00 Completed [facility] 2008-10-16 00:00:00 Completed [facility] 2008-10-16 00:00:00 Completed [facility] 2008-10-16 00:00:00 Completed [facility] 2008-10-16 00:00:00 Completed [facility] 2008-10-16 00:00:00 Completed [facility] 2008-10-16 00:00:00 Completed [facility] 2008-10-16 00:00:00 Completed [facility] 2008-10-16 00:00:00 Completed [facility] 2008-10-16 00:00:00 Completed [facility] 2008-10-16 00:00:00 Completed [facility] 2008-10-16 00:00:00 Completed [facility] 2008-10-16 00:00:00 Completed [facility] 2008-10-16 00:00:00 Completed [facility] 2008-10-16 00:00:00 Completed [facility] 2008-10-16 00:00:00 Completed [facility] 2008-10-16 00:00:00 Completed [facility] 2008-10-16 00:00:00 Completed [facility] 2008-10-16 00:00:00 Completed [facility] TD, NOS Unknown Completed [facility] HPV Unknown Completed [facility] HPV Unknown Completed [facility] MMR Unknown Completed [facility] HPV Unknown Completed [facility] Influenza Virus Vaccine Quad IM Multi-dose 6+ MO Unknown Completed [facility] TDAP Unknown Completed [facility] Influenza Virus Vaccine Quad .5 mL IM 6+ MO (FLUZONE/FLULAVAL/F LUARIX) Unknown Completed [facility] MMR Unknown Completed [facility] SARS-COV-2 COVID-19 VACCINE - (MODERNA) Unknown Completed [facility] SARS-COV-2 COVID-19 VACCINE - (MODERNA) Unknown Completed [facility] Vital Signs Vital Name Observation Time Observation Value Comments S ource Systolic blood pressure 2023-01-10 20:24:00 118 mm[Hg] [facility] Diastolic blood pressure 2023-01-10 20:24:00 95 mm[Hg] [facility] Heart rate 2023-01-10 20:24:00 72 /min [facility] Body temperature 2023-01-10 20:24:00 36.61 Delma [facility] Respiratory rate 2023-01-10 20:24:00 18 /min [facility] Body height 2023-01-10 20:24:00 165.1 cm [facility] Body weight 2023-01-10 20:24:00 61.054 kg [facility] BMI 2023-01-10 20:24:00 22.40 kg/m2 [facility] Systolic blood pressure 2022-11-15 14:28:00 104 mm[Hg] [facility] Diastolic blood pressure 2022-11-15 14:28:00 54 mm[Hg] [facility] Heart rate 2022-11-15 14:28:00 81 /min [facility] Body temperature 2022-11-15 14:28:00 37.39 Delma [facility] Respiratory rate 2022-11-15 14:28:00 18 /min [facility] Body height 2022-11-15 14:28:00 165.1 cm [facility] Body weight 2022-11-15 14:28:00 60.691 kg [facility] BMI 2022-11-15 14:28:00 22.27 kg/m2 [facility] Systolic blood pressure 2020-09-07 16:25:00 103 mm[Hg] [facility] Diastolic blood pressure 2020-09-07 16:25:00 67 mm[Hg] [facility] Heart rate 2020-09-07 16:25:00 61 /min [facility] Body temperature 2020-09-07 16:25:00 36.83 Delma [facility] Respiratory rate 2020-09-07 16:25:00 16 /min [facility] Body height 2020-09-07 16:25:00 165.1 cm [facility] Body weight 2020-09-07 16:25:00 74.299 kg [facility] BMI 2020-09-07 16:25:00 27.26 kg/m2 [facility] Systolic blood pressure 2020-09-07 16:25:00 103 mm[Hg] [facility] Diastolic blood pressure 2020-09-07 16:25:00 67 mm[Hg] [facility] Heart rate 2020-09-07 16:25:00 61 /min [facility] Body temperature 2020-09-07 16:25:00 36.83 Delma [facility] Respiratory rate 2020-09-07 16:25:00 16 /min [facility] Body height 2020-09-07 16:25:00 [facility].1 [facility] Body weight 2020-09-07 16:25:00 74.299 [facility] BMI 2020-09-07 16:25:00 27.26 kg/m2 [facility] Systolic blood pressure 2020-08-16 13:55:00 125 mm[Hg] [facility] Diastolic blood pressure 2020-08-16 13:55:00 85 mm[Hg] [facility] Heart rate 2020-08-16 13:55:00 73 /min [facility] Body temperature 2020-08-16 13:55:00 37 Delma [facility] Respiratory rate 2020-08-16 13:55:00 17 /min [facility] Oxygen saturation in Arterial blood by Pulse oximetry 2020-08-16 13:55:00 97 /min [facility] Body height 2020-08-14 15:45:00 165.1 cm [facility] Body weight 2020-08-14 15:45:00 83.689 [facility] BMI 2020-08-14 15:45:00 30.70 kg/m2 [facility] Systolic blood pressure 2020-08-16 13:55:00 125 mm[Hg] [facility] Diastolic blood pressure 2020-08-16 13:55:00 85 mm[Hg] [facility] Heart rate 2020-08-16 13:55:00 73 /min [facility] Body temperature 2020-08-16 13:55:00 37 Delma [facility] Respiratory rate 2020-08-16 13:55:00 17 /min [facility] Oxygen saturation in Arterial blood by Pulse oximetry 2020-08-16 13:55:00 97 /min [facility] Body height 2020-08-14 15:45:00 165.1 cm [facility] Body weight 2020-08-14 15:45:00 83.689 [facility] BMI 2020-08-14 15:45:00 30.70 kg/m2 [facility] Heart rate 2020-08-11 05:30:00 83 /min [facility] saturation in Arterial blood by Pulse oximetry 2020-08-11 04:45:00 98 /min [facility] Systolic blood pressure 2020-08-11 04:39:00 113 mm[Hg] [facility] Diastolic blood pressure 2020-08-11 04:39:00 78 mm[Hg] [facility] Body temperature 2020-08-11 04:39:00 36.83 Delma [facility] Respiratory rate 2020-08-11 04:39:00 16 /min [facility] Body height 2020-08-11 04:39:00 165.1 cm [facility] Body weight 2020-08-11 04:39:00 83.462 kg [facility] BMI 2020-08-11 04:39:00 30.62 kg/m2 [facility] Heart rate 2020-08-11 05:30:00 83 /min [facility] Oxygen saturation in Arterial blood by Pulse oximetry 2020-08-11 04:45:00 98 /min [facility] Systolic blood pressure 2020-08-11 04:39:00 113 mm[Hg] [facility] Diastolic blood pressure 2020-08-11 04:39:00 78 mm[Hg] [facility] Body temperature 2020-08-11 04:39:00 36.83 Delma [facility] Respiratory rate 2020-08-11 04:39:00 16 /min [facility] Body height 2020-08-11 04:39:00 165.1 cm [facility] Body weight 2020-08-11 04:39:00 83.462 [facility] BMI 2020-08-11 04:39:00 30.62 kg/m2 [facility] Systolic blood pressure 2020-08-06 19:05:00 119 mm[Hg] [facility] Diastolic blood pressure 2020-08-06 19:05:00 72 mm[Hg] [facility] Heart rate 2020-08-06 19:05:00 91 /min [facility] Body temperature 2020-08-06 19:05:00 36.72 Delma [facility] Respiratory rate 2020-08-06 19:05:00 16 /min [facility] Body height 2020-08-06 19:05:00 165.1 cm [facility] Body weight 2020-08-06 19:05:00 81.279 kg [facility] BMI 2020-08-06 19:05:00 29.82 kg/m2 [facility] Systolic blood pressure 2020-08-06 19:05:00 119 mm[Hg] [facility] Diastolic blood pressure 2020-08-06 19:05:00 72 mm[Hg] [facility] Heart rate 2020-08-06 19:05:00 91 /min [facility] Body temperature 2020-08-06 19:05:00 36.72 Delma [facility] Respiratory rate 2020-08-06 19:05:00 16 /min [facility] Body height 2020-08-06 19:05:00 165.1 cm [facility] Body weight 2020-08-06 19:05:00 81.279 kg [facility] BMI 2020-08-06 19:05:00 29.82 kg/m2 [facility] Systolic blood pressure 2020-07-31 18:04:00 108 mm[Hg] [facility] Diastolic blood pressure 2020-07-31 18:04:00 68 mm[Hg] [facility] Heart rate 2020-07-31 18:04:00 81 /min [facility] Body temperature 2020-07-31 18:04:00 37 Delma [facility] Respiratory rate 2020-07-31 18:04:00 16 /min [facility] Body height 2020-07-31 18:04:00 165.1 cm [facility] Body weight 2020-07-31 18:04:00 80.105 kg [facility] BMI 2020-07-31 18:04:00 29.39 kg/m2 [facility] Systolic blood pressure 2020-07-24 14:32:00 115 mm[Hg] [facility] Diastolic blood pressure 2020-07-24 14:32:00 72 mm[Hg] [facility] Heart rate 2020-07-24 14:32:00 104 /min [facility] Body temperature 2020-07-24 14:32:00 36.72 Delma [facility] Respiratory rate 2020-07-24 14:32:00 16 /min [facility] Body height 2020-07-24 14:32:00 165.1 cm [facility] Body weight 2020-07-24 14:32:00 79.153 [facility] BMI 2020-07-24 14:32:00 29.04 kg/m2 [facility] Systolic blood pressure 2020-07-10 16:09:00 115 mm[Hg] [facility] Diastolic blood pressure 2020-07-10 16:09:00 69 mm[Hg] [facility] Heart rate 2020-07-10 16:09:00 81 /min [facility] Body temperature 2020-07-10 16:09:00 36.39 Delma [facility] Respiratory rate 2020-07-10 16:09:00 16 /min [facility] Body height 2020-07-10 16:09:00 165.1 cm [facility] Body weight 2020-07-10 16:09:00 76.885 [facility] BMI 2020-07-10 16:09:00 28.21 kg/m2 [facility] Systolic blood pressure 2020-06-26 13:58:00 110 mm[Hg] [facility] Diastolic blood pressure 2020-06-26 13:58:00 73 mm[Hg] [facility] Heart rate 2020-06-26 13:58:00 99 /min [facility] Body temperature 2020-06-26 13:58:00 36.11 Delma [facility] Respiratory rate 2020-06-26 13:58:00 16 /min [facility] Body height 2020-06-26 13:58:00 162.6 cm [facility] Body weight 2020-06-26 13:58:00 74.078 kg [facility] BMI 2020-06-26 13:58:00 28.03 kg/m2 [facility] Systolic blood pressure 2020-06-12 15:31:00 108 mm[Hg] [place] [facility] Diastolic blood pressure 2020-06-12 15:31:00 69 mm[Hg] [facility] Heart rate 2020-06-12 15:31:00 97 /min [facility] Body temperature 2020-06-12 15:31:00 36.11 [facility] Respiratory rate 2020-06-12 15:31:00 16 /min [facility] Body height 2020-06-12 15:31:00 162.6 cm [facility] Body weight 2020-06-12 15:31:00 72.689 kg [facility] BMI 2020-06-12 15:31:00 27.51 kg/m2 [facility] Systolic blood pressure 2020-05-28 16:20:00 114 mm[Hg] [facility] Diastolic blood pressure 2020-05-28 16:20:00 69 mm[Hg] [facility] Heart rate 2020-05-28 16:20:00 85 /min [facility] Body temperature 2020-05-28 16:20:00 36.11 Delma [facility] Respiratory rate 2020-05-28 16:20:00 16 /min [facility] Body height 2020-05-28 16:20:00 162.6 cm [facility] Body weight 2020-05-28 16:20:00 70.988 kg [facility] BMI 2020-05-28 16:20:00 26.86 kg/m2 [facility] Systolic blood pressure 2020-04-28 15:52:00 114 mm[Hg] [facility] Diastolic blood pressure 2020-04-28 15:52:00 73 mm[Hg] [facility] Heart rate 2020-04-28 15:52:00 87 /min [facility] Body temperature 2020-04-28 15:52:00 36.22 Delma [facility] Respiratory rate 2020-04-28 15:52:00 16 /min [facility] Body height 2020-04-28 15:52:00 162.6 cm [facility] Body weight 2020-04-28 15:52:00 68.266 kg [facility] BMI 2020-04-28 15:52:00 25.83 kg/m2 [facility] Systolic blood pressure 2020-03-31 15:19:00 97 mm[Hg] [facility] Diastolic blood pressure 2020-03-31 15:19:00 63 mm[Hg] [facility] Heart rate 2020-03-31 15:19:00 69 /min [facility] Body temperature 2020-03-31 15:19:00 36.39 Delma [facility] Respiratory rate 2020-03-31 15:19:00 16 /min [facility] Body height 2020-03-31 15:19:00 162.6 cm [facility] Body weight 2020-03-31 15:19:00 67.841 [facility] BMI 2020-03-31 15:19:00 25.67 kg/m2 [facility] Body weight 2020-02-14 18:17:00 63.504 kg [facility] BMI 2020-02-14 18:17:00 23.30 kg/m2 [facility] Systolic blood pressure 2020-02-04 16:13:00 115 mm[Hg] [facility] Diastolic blood pressure 2020-02-04 16:13:00 70 mm[Hg] [facility] Heart rate 2020-02-04 16:13:00 79 /min [facility] Body temperature 2020-02-04 16:13:00 36.17 Delma [facility] Respiratory rate 2020-02-04 16:13:00 16 /min [facility] Body height 2020-02-04 16:13:00 165.1 [facility] Body weight 2020-02-04 16:13:00 63.645 [facility] BMI 2020-02-04 16:13:00 23.35 kg/m2 [facility] Systolic blood pressure 2020-01-02 14:54:00 105 mm[Hg] [place] [facility] Diastolic blood pressure 2020-01-02 14:54:00 64 mm[Hg] [facility] Heart rate 2020-01-02 14:54:00 83 /min [facility] Body temperature 2020-01-02 14:54:00 37 Delma [facility] Respiratory rate 2020-01-02 14:54:00 16 /min [facility] Body height 2020-01-02 14:54:00 165.1 cm [facility] Body weight 2020-01-02 14:54:00 62.171 [facility] BMI 2020-01-02 14:54:00 22.81 kg/m2 [facility] Procedures Procedure Date / Time Performed Performing Clinician Source HCV ANTIBODY 2023-01-10 21:00:00 [facility] HIV 1/2 AG-AB WITH REFLEX 2023-01-10 21:00:00 Hafsa Reese [facility] SYPHILIS IGG/IGM 2023-01-10 21:00:00 Hafsa Smart [facility] PATIENT FINANCIAL POLICY 2023-01-10 19:57:03 Doctor Unassigned, [place] [facility] CONSENT/REFUSAL FOR DIAGNOSIS AND TREATMENT 2022-11-15 14:10:32 Doctor Unassigned, [place] [facility] ASSIGNMENT OF BENEFITS 2022-11-15 14:10:13 Docto r Unassigned, [place] [facility] CBC WITH DIFF 2020-08-15 09:11:00 Felecia Villavicencio [facility] VENOUS CORD GAS 2020-08-15 00:55:00 Vonnie Cline [facility] CBC WITH DIFF 2020-08-14 10:24:00 Edel Carballo [facility] HEPATITIS B SURFACE ANTIGEN 2020-08-14 10:24:00 CarballoEdel [facility] ADC OR ISA ONLY - RPR 2020-08-14 10:24:00 CarballoPablo [facility] HIV 1/2 AG-AB WITH REFLEX 2020-08-14 10:24:00 Haris Pablo ian [facility] HB ABO GROUPING 2020-08-14 10:20:00 CarballoEdel [facility] RHO (D) IMMUNE GLOBULIN 2020-08-14 10:20:00 Bree Villavicencio [facility] COVID-19 (ID NOW RAPID TESTING) 2020-08-14 09:21:00 CarballoEdel Tanner [facility] ADC ONLY - FERN TEST 2020-08-14 09:05:00 Edel Carballo [facility] L&D VISIT (NON-DELIVERED) 2020-08-14 05:01:00 Do ctor Unassigned, [place] [facility] NON-STRESS TEST 2020-08-06 19:54:52 Alex Henry [facility] POCT URINALYSIS 2020-08-06 19:06:00 Mally Henry [facility] POCT URINALYSIS 2020-07-31 00:00:00 Mally Henry [facility] POCT URINALYSIS 2020-07-24 14:33:00 Mally Henry [facility] POCT URINALYSIS 2020-07-10 00:00:00 Mally Henry [facility] POCT URINALYSIS 2020-06-26 14:01:00 Mally Henry [facility] POCT URINALYSIS 2020-06-12 15:33:00 Mally Henry [facility] STERILIZATION CONSENT FORM 2020-06-12 05:01:00 Doctor Unassigned, [place] [facility] POCT URINALYSIS 2020-05-28 16:24:00 Mally Henry [facility] POCT URINALYSIS 2020-04-28 15:54:00 Mally Henry [facility] POCT URINALYSIS 2020-03-31 15:20:00 Mally Henry [facility] POCT URINALYSIS 2020-02-04 19:05:00 Mally Henry [facility] PATIENT CORRESPONDENCE (LETTERS, USPS DOCUMENTATION) 2020-02-04 05:01:00 Doctor Unassigned, [place] [facility] FLU VACC ([id number]), 6+ MONTHS, IM, QUAD 2020-01-02 15:11:35 Mally Henry [facility] POCT TEST 2020-01-02 14:49:00 Jonathan Henry [facility] POCT URINALYSIS W/O SPECIFIC GRAVITY 2020-01-02 14:49:00 Mally Henry [facility] NOTICE OF PRIVACY PRACTICES 2020-01-02 14:17:14 Doctor Unassigned, [place] [facility] Encounters Start Date/Time End Date/Time Encounter Type Admission Type Attending [facility] Facility Care Department Encounter ID Source 2021-08-14 01:11:54 Outpatient P [facility] [id number] [facility] 2021-08-14 01:11:26 Emergency [facility] [id number] [facility] 2021-08-14 01:11:26 Outpatient P [facility] [id number] [facility] 2024-02-06 11:00:00 2024-02-06 11:00:00 Outpatient [facility] [id number] Jing Chiang 2023-01-10 15:30:00 2023-01-10 16:00:41 Outpatient R HAFSA SMART [facility] [id number] [facility] 2023-01-10 15:30:00 2023-01-10 16:00:41 Office Visit Provider, Bonilla-Rmchp Hafsa Barrett [facility] [employer] [facility] [id number] 350.1.13.10 4.2.7.2.686 [id number] [facility] 2023-01-10 00:00:00 2023-01-10 00:00:00 Orders Only Doctor Unassigned, [place] [facility] 1.2.840.114 350.1.13.10 4.2.7.2.686 [id number] [facility] 2023-01-08 00:00:00 2023-01-08 00:00:00 Patient Secure Msg Doctor Unassigned, [place] [facility] [id number] 350.1.13.10 4.2.7.2.686 [id number] [facility] 2022-11-17 00:00:00 2022-11-17 00:00:00 Case Management Hafsa Smart [facility] [employer] [facility] 1.840.114 350.1.13.10 4.2.7.2.686 [id number] [facility] 2022-11-15 08:15:00 2022-11-15 10:03:13 Outpatient HAFSA RUIZ [facility] [id number] [facility] 2022-11-15 08:15:00 2022-11-15 10:03:13 Office Visit Provider, Ang-Rmchp [facility] Hafsa Smart [facility] [employer] [facility] [id number] 350.1.13.10 4.2.7.2.686 [id number] [facility] 2022-11-15 00:00:00 2022-11-15 00:00:00 Orders Only Doctor Unassigned, [place] [facility] [id number] 350.1.13.10 4.2.7.2.686 [id number] [facility] 2020-09-28 10:30:00 2020-09-28 10:30:00 Outpatient GIANNI JORDAN [facility] [id number] [facility] 2020-09-07 10:06:40 2020-09-07 10:21:40 Routine Visit Gianni Gil [facility] [employer] [facility] [id number] 350.1.13.10 4.2.7.2.686 [id number] 2020-09-07 10:06:40 2020-09-07 10:21:40 Routine Visit Gianni Gil [facility] [employer] [facility] [id number] 350.1.13.10 4.2.7.2.686 [id number] [facility] 2020-09-07 10:15:00 2020-09-07 10:15:00 Outpatient GIANNI JORDAN [facility] [id number] [facility] 2020-08-26 00:00:00 2020-08-26 00:00:00 Telephone Mally Henry [facility] [employer] [facility] [id number] 350.1.13.10 4.2.7.2.686 [id number] [facility] 2020-08-26 00:00:00 2020-08-26 00:00:00 Telephone Mally Henry [facility] [employer] [facility] 1.2.840.114 350.1.13.10 4.2.7.2.686 [id number] 2020-08-14 03:09:00 2020-08-16 12:55:00 Hospital Encounter Edel Carballo [facility] 1.2.840.114 350.1.13.10 4.2.7.2.686 [id number] [facility] 2020-08-14 03:09:00 2020-08-16 12:55:00 Hospital Encounter Edel Carballoouveli margot, Vonnie [facility] 1.2.840.114 350.1.13.10 4.2.7.2.686 [id number] 2020-08-14 08:00:00 2020-08-14 08:00:00 Outpatient R MALLY HENRY [facility] [id number] [facility] 2020-08-14 00:00:00 2020-08-14 00:00:00 Orders Only Doctor Unassigned, [place] [facility] 1.2.840.114 350.1.13.10 4.2.7.2.686 [id number] [facility] 2020-08-14 00:00:00 2020-08-14 00:00:00 Orders Only Doctor Unassigned, [place] [facility] 1.2.840.114 350.1.13.10 4.2.7.2.686 [id number] 2020-08-10 23:10:00 2020-08-11 01:00:00 Hospital Encounter Juan Francisco Garcia [facility] 1.2.840.114 350.1.13.10 4.2.7.2.686 [id number] [facility] 2020-08-10 23:10:00 2020-08-11 01:00:00 Hospital Encounter Juan Francisco Garcia [facility] 1.2.840.114 350.1.13.10 4.2.7.2.686 [id number] 2020-08-06 13:48:55 2020-08-06 14:59:03 Routine Visit Mally Henry [facility] [employer] [facility] [id number] 350.1.13.10 4.2.7.2.686 [id number] [facility] 2020-08-06 13:48:55 2020-08-06 14:59:03 Routine Visit Mally Henry [facility] [employer] [facility] [facility] 1.2.840.114 350.1.13.10 4.2.7.2.686 [id number] 107 [id number] 2020-08-06 14:00:00 2020-08-06 14:00:00 Outpatient R CARL MALLY VAPK [facility] [id number] [facility] 2020-08-03 00:00:00 2020-08-03 00:00:00 Telephone Mally Henry [facility] [employer] SE[employer]ER [facility] 1.2.840.114 350.1.13.10 4.2.7.2.686 [id number] [facility] 2020-08-03 00:00:00 2020-08-03 00:00:00 Telephone WingrenéMally [facility] [employer] SELLER [facility] 1.2.840.114 350.1.13.10 4.2.7.2.686 [id number] 2020-07-31 12:50:31 2020-07-31 13:29:28 Routine Visit WingrenéMally VAPK [employer] [facility] 1.2.840.114 350.1.13.10 4.2.7.2.686 [id number] [facility] 2020-07-31 13:00:00 2020-07-31 13:00:00 Outpatient R CARL MALLY [facility] [id number] [facility] 2020-07-24 09:28:35 2020-07-24 09:47:20 Routine Visit Ana MariajoshuarenéMally [facility] [employer] [facility] 1.2.840.114 350.1.13.10 4.2.7.2.686 [id number] [facility] 2020-07-24 09:30:00 2020-07-24 09:30:00 Outpatient R MALLY HENRY [facility] [id number] [facility] 2020-07-22 00:00:00 2020-07-22 00:00:00 Telephone Mally Henry [facility] [employer] [facility] 1.2.840.114 350.1.13.10 4.2.7.2.686 [id number] 107 [id number] [facility] 2020-07-10 11:02:49 2020-07-10 11:38:13 Routine Visit Mally Henry [facility] [employer] [facility] 1.840.114 350.1.13.10 4.2.7.2.686 [id number] [facility] 2020-07-10 11:00:00 2020-07-10 11:00:00 Outpatient R MALLY HENRY [facility] [id number] [facility] 2020-06-26 08:50:42 2020-06-26 09:05:42 Routine Visit Mally Henry [facility] [employer] [facility] 1..840.114 350.1.13.10 4.2.7.2.686 [id number] [facility] 2020-06-26 09:00:00 2020-06-26 09:00:00 Outpatient R MALLY HENRY [facility] [id number] [facility] 2020-06-16 09:30:00 2020-06-16 09:30:00 Outpatient R MALLY HENRY [facility] [id number] [facility] 2020-06-12 09:41:23 2020-06-12 10:59:00 Routine Visit Mally Henry [facility] [employer] [facility] 1.2.840.114 350.1.13.10 4.2.7.2.686 [id number] [facility] 2020-06-12 10:30:00 2020-06-12 10:30:00 Outpatient R WINGRENÉ MALLY [facility] [id number] [facility] 2020-06-12 09:30:00 2020-06-12 09:30:00 Outpatient R CARL MALLY [facility] [id number] [facility] 2020-06-12 00:00:00 2020-06-12 00:00:00 Orders Only Doctor Unassigned, [place] [facility] 1.2.840.114 350.1.13.10 4.2.7.2.686 [id number] [facility] 2020-06-11 10:30:00 2020-06-11 10:30:00 Outpatient R MALLY HENRY [facility] [id number] [facility] 2020-06-01 08:45:01 2020-06-01 08:51:02 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, [facility] Mally Henry [facility] [employer] SELLER [facility] 1.2.840.114 350.1.13.10 4.2.7.2.686 [id number] [facility] 2020-06-01 08:30:00 2020-06-01 08:30:00 Outpatient R MALLY HENRY [facility] [id number] [facility] 2020-05-29 08:30:00 2020-05-29 08:30:00 Outpatient R [facility] [id number] [facility] 2020-05-28 11:03:28 2020-05-28 11:33:11 Routine Visit Mally Henry [facility] [employer] [facility] 1..840.114 350.1.13.10 4.2.7.2.686 [id number] [facility] 2020-05-28 11:00:00 2020-05-28 11:00:00 Outpatient R MALLY HENRY [facility] [id number] [facility] 2020-05-26 12:45:00 2020-05-26 12:45:00 Outpatient R MALLY HENRY [facility] [id number] [facility] 2020-04-28 10:43:31 2020-04-28 11:38:20 Routine Visit Mally Henry [facility] [employer] SE[employer] 1..840.114 350.1.13.10 4.2.7.2.686 [id number] 107 [id number] [facility] 2020-04-28 10:45:00 2020-04-28 10:45:00 Outpatient R MALLY HENRY [facility] [id number] [facility] 2020-04-13 08:04:15 2020-04-13 09:19:15 Pigment Pusher Visit Ultrasound, Joanne Posada [facility] [employer] [facility] 1..840.114 350.1.13.10 4.2.7.2.686 [id number] [facility] 2020-04-13 08:00:00 2020-04-13 08:00:00 Outpatient P [facility] [id number] [facility] 2020-04-13 00:00:00 2020-04-13 00:00:00 Telephone Mally Henry [facility] [employer] [facility] 1..840.114 350.1.13.10 4.2.7.2.686 [id number] 107 [id number] [facility] 2020-04-13 00:00:00 2020-04-13 00:00:00 Abstract Mally Henry [facility] [employer] [facility] 1..840.114 350.1.13.10 4.2.7.2.686 [id number] 107 [id number] [facility] 2020-03-31 10:05:38 2020-03-31 10:46:23 Routine Visit Tamara Henryburke Schilling [facility] [employer] [facility] 1..114 350.1.13.10 4.2.7.2.686 [id number] 107 [id number] [facility] 2020-03-31 10:00:00 2020-03-31 10:00:00 Outpatient R ANA MARIAJOSHUARENÉMALLY [facility] [id number] [facility] 2020-03-30 00:00:00 2020-03-30 00:00:00 Telephone Olivier Jaramillo [facility] 1.114 350.1.13.10 4.2.7.2.686 [id number] [facility] 2020-03-03 09:41:40 2020-03-03 10:18:30 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, [facility] Ana MariajoshuarenéFordMally C [facility] [employer] [facility] 1..114 350.1.13.10 4.2.7.2.686 [id number] [facility] 2020-03-03 10:15:00 2020-03-03 10:15:00 Outpatient R MALLY HENRY [facility] [id number] [facility] 2020-03-02 08:01:18 2020-03-02 09:13:00 Telemedici ne Visit Carl Mally Schilling [facility] [employer] [facility] 1..114 350.1.13.10 4.2.7.2.686 [id number] [facility] 2020-03-02 08:30:00 2020-03-02 08:30:00 Outpatient R ANA MARIAJOSHUARENÉFORDMALLY [facility] [id number] [facility] 2020-03-02 00:00:00 2020-03-02 00:00:00 Case Management Ange Weaver [facility] 1..114 350.1.13.10 4.2.7.2.686 [id number] [facility] 2020-02-28 13:00:00 2020-02-28 13:00:00 Outpatient R MALLY HENRY [facility] [id number] [facility] 2020-02-27 00:00:00 2020-02-27 00:00:00 Case Management Ange Weaver [facility] 1.0.114 350.1.13.10 4.2.7.2.686 [id number] 161 [id number] [facility] 2020-02-14 10:30:00 2020-02-14 10:30:00 Outpatient P [facility] [id number] [facility] 2020-02-14 08:09:28 2020-02-14 08:54:28 Telemedici ne Visit Estela Esposito Joseph W [facility] 1..114 350.1.13.10 4.2.7.2.686 [id number] [facility] 2020-02-14 00:00:00 2020-02-14 00:00:00 Telephone Mally Henry [facility] [employer] SE[employer]ER [facility] 1.0.114 350.1.13.10 4.2.7.2.686 [id number] 107 [id number] [facility] 2020-02-13 00:00:00 2020-02-13 00:00:00 Telephone Amy Bartlett [facility] 1..114 350.1.13.10 4.2.7.2.686 [id number] [facility] 2020-02-07 00:00:00 2020-02-07 00:00:00 Telephone Mally Henry [facility] [employer] [facility] 1.840.114 350.1.13.10 4.2.7.2.686 [id number] [facility] 2020-02-04 10:45:23 2020-02-04 11:51:13 Routine Visit Ana MariajoshuaMally stephens [facility] [employer] [facility] 1..114 350.1.13.10 4.2.7.2.686 [id number] [facility] 2020-02-04 11:00:00 2020-02-04 11:00:00 Outpatient R MALLY HENRY [facility] [id number] [facility] 2020-02-04 00:00:00 2020-02-04 00:00:00 Orders Only Doctor Unassigned, [place] [facility] 1..114 350.1.13.10 4.2.7.2.686 [id number] [facility] 2020-01-24 00:00:00 2020-01-24 00:00:00 Telephone Emma Francis [facility] 1..114 350.1.13.10 4.2.7.2.686 [id number] 161 [id number] [facility] 2020-01-21 11:32:42 2020-01-21 12:02:42 Pigment Pusher Visit Ultrasound, Last Urrutia [facility] [employer] [facility] 1..114 350.1.13.10 4.2.7.2.686 [id number] [facility] 2020-01-21 11:30:00 2020-01-21 11:30:00 Outpatient P [facility] [id number] [facility] 2020-01-20 09:30:00 2020-01-20 09:30:00 Outpatient R AMY BARTLETT SHANNON [facility] [id number] [facility] 2020-01-20 08:11:20 2020-01-20 08:41:20 Routine Visit Faculty, Amy Broussard [facility] [employer] [facility] 1.0.114 350.1.13.10 4.2.7.2.686 [id number] [facility] 2020-01-02 09:46:25 2020-01-02 10:35:48 Initial Visit CarlMally [facility] [employer] SELLER [facility] 1.2.840.114 350.1.13.10 4.2.7.2.686 [id number] [facility] 2020-01-02 10:00:00 2020-01-02 10:00:00 Outpatient R CARLMALLY [facility] [id number] [facility] 2020-01-02 00:00:00 2020-01-02 00:00:00 Orders Only Doctor Unassigned, [place] [facility] 1.2.840.114 350.1.13.10 4.2.7.2.686 [id number] [facility] 2019-02-05 13:30:00 2019-02-05 13:38:17 Outpatient R FORD HENRYILOLA [facility] [id number] [facility] Results Test Description Test Time Test Comments Results Result Co mments Source [facility] [id number] 16:14:26* Test Item Value Reference Range Interpretation Comme nts Syphilis IgG/IgM (test code = 40805-5) Non-reactive Non-reactive COLLEEN (test code = COLLEEN) Non-reactive - No serologic evidence of T. pallidum infection. Cannot exclude incubating or early syphilis. Submit a second specimen in 2-4 weeks if syphilis is clinically suspected. Equivocal - Further testing to follow. Reactive - Further testing to follow. Lab Interpretation (test code = 32677-2) Normal [facility] [id number] 09:47:12* Test Item Value Reference Range Interpretation Comme nts HCV Ab (test code = 48851-6) Negative HCV Semi-Quantitative (test code = 24450-0) 0.04 [facility] [id number] 09:47:12* Test Item Value Reference Range Interpretation Comme nts HCV Ab (test code = 18405-7) Negative HCV Semi-Quantitative (test code = 85891-1) [facility]04 [facility] WITH [id number] 06:05:30* Test Item Value Reference Range Interpretation Comme nts HIV Semi-quantitative (test code = 53494-7) 0.09 Negative COLLEEN (test code = COLLEEN) Non-reactive for HIV-1 antigen and HIV-1/HIV-2 antibodies. ?No laboratory evidence of HIV infection. ?Repeat in 2-4 weeks if acute HIV infection is suspected. [facility] WITH [id number] 06:05:30* Test Item Value Reference Range Interpretation Comme nts HIV Semi-quantitative (test code = 60487-2) 0.09 Negative COLLEEN (test code = COLLEEN) Non-reactive for HIV-1 antigen and HIV-1/HIV-2 antibodies. ?No laboratory evidence of HIV infection. ?Repeat in 2-4 weeks if acute HIV infection is suspected. [facility] with [id number] 09:58:00* Test Item Value Reference Range Interpretation Comme nts WBC (test code = 6690-2) See_Comment H [Automated message] The system which generated this result transmitted reference range: 4.30 - 11.10 10*3/?L. The reference range was not used to interpret this result as normal/abnormal. RBC (test code = 789-8) See_Comment [Automated message] The system which generated this result transmitted reference range: 3.93 - 5.25 10*6/?L. The reference range was not used to interpret this result as normal/abnormal. HGB (test code = 718-7) 10.4 g/dL 11.6-15 L HCT (test code = 4544-3) 32.9 % 35.7-45.2 L MCV (test code = 787-2) 82.7 fL 80.6-95.5 MCH (test code = 785-6) 26.1 pg 25.9-32.8 MCHC (test code = 786-4) 31.6 g/dL 31.6-35.1 RDW-SD (test code = 83464-9) 42.4 fL 39-49.9 RDW-CV (test code = 788-0) 14.8 % 12-15.5 PLT (test code = 777-3) See_Comment [Automated message] The system which generated this result transmitted reference range: 166 - 358 10*3/?L. The reference range was not used to interpret this result as normal/abnormal. MPV (test code = 40618-0) 11.0 fL 9.5-12.9 NRBC/100 WBC (test code = 0647430956) See_Comment [Automated message] The system which generated this result transmitted reference range: 0.0 - 10.0 /100 WBCs. The reference range was not used to interpret this result as normal/abnormal. NRBC x10^3 (test code = 6866941227) <0.01 See_Comment [Automated message] The system which generated this result transmitted reference range: 10*3/?L. The reference range was not used to interpret this result as normal/abnormal. GRAN MAT (NEUT) % (test code = 770-8) 76.2 % IMM GRAN % (test code = 1122941062) 1.30 % LYMPH % (test code = 736-9) 13.2 % MONO % (test code = 5905-5) 8.2 % EOS % (test code = 713-8) 0.8 % BASO % (test code = 706-2) 0.3 % GRAN MAT x10^3(ANC) (test code = 6939593017) 13.18 10*3/uL 1.88-7.09 H IMM GRAN x10^3 (test code = 5171722321) 0.23 10*3/uL 0-0.06 H LYMPH x10^3 (test code = 731-0) 2.28 10*3/uL 1.32-3.29 MONO x10^3 (test code = 742-7) 1.42 10*3/uL 0.33-0.92 H EOS x10^3 (test code = 711-2) 0.13 10*3/uL 0.03-0.39 BASO x10^3 (test code = 704-7) 0.05 10*3/uL 0.01-0.07 Lab Interpretation (test code = 88225-7) Abnormal [facility] ONLY - [id number] 08:55:00* Test Item Value Reference Range Interpretation Comme nts RPR (Qualitative) (test code = 64869-0) Nonreactive Nonreactive Lab Interpretation (test cod e = 87593-0) Normal [facility] Hospital[facility]HO (D) IMMUNE [id number] 06:27:46* Test Item Value Reference Range Interpretation Comme nts RHIG CANDIDATE? (test code = 5055) No- see comment Patient is not a candidate for RhIg- Patient is Rh Positive.Performed at [facility] Laboratory Services - [facility] Blood [address] [place] [address]Gzxk Free: [phone] No. [id number] [facility] HospitalARTERIAL CORD [id number] 01:12:00* Test Item Value Reference Range Interpretation Comme nts BASE EXCESS, CORD (test code = 9938638524) mEq/L AC PH, CORD (BEAKER) (test code = 6239052349) 7.18-7.38 PC02, CORD (test code = 6080180883) See_Comment [Automated messa ge] The system which generated this result transmitted reference range: 32 - 66 mmHg. The reference range was not used to interpret this result as normal/abnormal. PO2, CORD (test code = 0467504594) See_Comment [Automated messa ge] The system which generated this result transmitted reference range: 10 - 30 mmHg. The reference range was not used to interpret this result as normal/abnormal. BICARBONATE, CORD (test code = 3342508925) See_Comment [Automated messa ge] The system which generated this result transmitted reference range: 17 - 27 mEq/L. The reference range was not used to interpret this result as normal/abnormal. [facility] HospitalVENOUS CORD [id number] 01:08:00* Test Item Value Reference Range Interpretation Comme nts VENOUS BASE EXCESS, CORD (test code = 7297541789) mEq/L VENOUS PH, CORD (test code = 2914420539) 7.25-7.45 VENOUS PC02, CORD (test code = 2071365702) See_Comment [Automated messa ge] The system which generated this result transmitted reference range: 27 - 49 mmHg. The reference range was not used to interpret this result as normal/abnormal. VENOUS PO2, CORD (test code = 8847822249) See_Comment [Automated me ssage] The system which generated this result transmitted reference range: 17 - 41 mmHg. The reference range was not used to interpret this result as normal/abnormal. VENOUS BICARBONATE, CORD (test code = 8496034917) See_Comment QUES [Automated message] The system which generated this result transmitted reference range: 12 - 29 mEq/L. The reference range was not used to interpret this result as normal/abnormal. [facility] HospitalHepatitis B Surface [id number] 16:14:00 * Test Item Value Reference Range Interpretation Comme nts HBsAg Semi-Quantitative (bebe t code = 5195-3) Negative Negative [facility] HospitalType and Screen - ONCE [id number] 12:25:45 * Test Item Value Reference Range Interpretation Comme nts ABO & RH (test code = 20) O Positive Performed at [facility] Laboratory [facility] Blood [address] Free: [phone] No. [id number] IAT (test code = 1185) Negative Performed at [facility] Laboratory [facility] Blood [address] Free: [phone] No. [id number] [facility] HospitalHIV 1/2 AG-AB WITH [id number] 12:19:00* Test Item Value Reference Range Interpretation Comme nts HIV Semi-quantitative (test code = 47632-4) Negative Negative COLLEEN (test code = COLLEEN) Non-reactive for HIV-1 antigen and HIV-1/HIV-2 antibodies. ?No laboratory evidence of HIV infection. ?Repeat in 2-4 weeks if acute HIV infection is suspected. [facility] HospitalCBC with [id number] 11:28:00* Test Item Value Reference Range Interpretation Comme nts WBC (test code = 6690-2) See_Comment H [Automated message] The system which generated this result transmitted reference range: 4.30 - 11.10 10*3/?L. The reference range was not used to interpret this result as normal/abnormal. RBC (test code = 789-8) See_Comment L [Automated message] The system which generated this result transmitted reference range: 3.93 - 5.25 10*6/?L. The reference range was not used to interpret this result as normal/abnormal. HGB (test code = 718-7) 9.8 g/dL 11.6-15 L HCT (test code = 4544-3) 31.7 % 35.7-45.2 L MCV (test code = 787-2) 82.3 fL 80.6-95.5 MCH (test code = 785-6) 25.5 pg 25.9-32.8 L MCHC (test code = 786-4) 30.9 g/dL 31.6-35.1 L RDW-SD (test code = 74712-8) 41.6 fL 39-49.9 RDW-CV (test code = 788-0) 14.6 % 12-15.5 PLT (test code = 777-3) See_Comment [Automated message] The system which generated this result transmitted reference range: 166 - 358 10*3/?L. The reference range was not used to interpret this result as normal/abnormal. MPV (test code = 90988-2) 10.6 fL 9.5-12.9 NRBC/100 WBC (test code = 0855792508) See_Comment [Automated message] The system which generated this result transmitted reference range: 0.0 - 10.0 /100 WBCs. The reference range was not used to interpret this result as normal/abnormal. NRBC x10^3 (test code = 8846564941) <0.01 See_Comment [Automated message] The system which generated this result transmitted reference range: 10*3/?L. The reference range was not used to interpret this result as normal/abnormal. GRAN MAT (NEUT) % (test code = 770-8) 73.3 % IMM GRAN % (test code = 4103820418) 2.20 % LYMPH % (test code = 736-9) 15.2 % MONO % (test code = 5905-5) 7.6 % EOS % (test code = 713-8) 1.2 % BASO % (test code = 706-2) 0.5 % GRAN MAT x10^3(ANC) (test code = 0803792555) 12.36 10*3/uL 1.88-7.09 H IMM GRAN x10^3 (test code = 6083400635) 0.37 10*3/uL 0-0.06 H LYMPH x10^3 (test code = 731-0) 2.57 10*3/uL 1.32-3.29 MONO x10^3 (test code = 742-7) 1.28 10*3/uL 0.33-0.92 H EOS x10^3 (test code = 711-2) 0.20 10*3/uL 0.03-0.39 BASO x10^3 (test code = 704-7) 0.08 10*3/uL 0.01-0.07 H Lab Interpretation (test code = 88242-3) Abnormal [facility] HospitalCOVID-[facility] (ID NOW RAPID TESTING)2020-08-14 09:59:00* Test Item Value Reference Range Interpretation Comme nts SARS-CoV-2 Rapid ID NOW (test code = 34352-1) Not Detected Not Detected COLLEEN (test code = COLLEEN) ID NOW COVID-19 As say is an isothermal nucleic acid amplification test intended for the qualitative detection of nucleic acid from SARS-CoV-2 viral RNA in nasopharyngeal (RAILCAR SWITCHMAN) specimens. It is used under Emergency Use [...] patient testing if clinically indicated. Lab Interpretation (test code = 64781-9) Normal [facility] HospitalAD ONLY - FERN [id number] 09:34:00* Test Item Value Reference Range Interpretation Comme nts Fern Test (test code = 8438098860) Positive [facility] HospitalFETAL NON-STRESS [id number] 19:55:33NST: cat 1, reactive/reassuring, no ctx, +accels, neg decls, moderate variability [facility] URINALYSIS W SPECIFIC [id number] 19:06:00* Test Item Value Reference Range Interpretation Comme nts POCT U SP GRAV (test code = 3255) . 1.005-1.025 POCT PH U (test code = 3254) . 5-8 POCT U LEUK EST (test code = 3263) . Negative - N egative POCT U NIT (test code = 3262) . Negative - Negati ve POCT U PROT (test code = 3259) Trace Negative - Negat kelle POCT U GLU (test code = 3256) Neg Negative - Negati ve POCT U KETONE (test code = 3258) . Negative - Neg ative POCT U UROBILI (test code = 3260) . 0.2-1 POCT U BILI (test code = 3261) . Negative - Negat kelle POCT U BLD (test code = 3257) . Negative - Negati ve POCT U COLOR (test code = 3266) POCT U APPEAR (test code = 3267) [facility] URINALYSIS W SPECIFIC [id number] 18:05:00* Test Item Value Reference Range Interpretation Comme nts POCT U SP GRAV (test code = 3255) . 1.005-1.025 POCT PH U (test code = 3254) . 5-8 POCT U LEUK EST (test code = 3263) . Negative - N egative POCT U NIT (test code = 3262) . Negative - Negati ve POCT U PROT (test code = 3259) TRACE Negative - Negat kelle POCT U GLU (test code = 3256) NEG Negative - Negati ve POCT U KETONE (test code = 3258) . Negative - Neg ative POCT U UROBILI (test code = 3260) . 0.2-1 POCT U BILI (test code = 3261) . Negative - Negat kelle POCT U BLD (test code = 3257) . Negative - Negati ve POCT U COLOR (test code = 3266) POCT U APPEAR (test code = 3267) [facility] URINALYSIS W SPECIFIC [id number] 14:33:00* Test Item Value Reference Range Interpretation Comme nts POCT U SP GRAV (test code = 3255) . 1.005-1.025 POCT PH U (test code = 3254) . 5-8 POCT U LEUK EST (test code = 3263) . Negative - N egative POCT U NIT (test code = 3262) . Negative - Negati ve POCT U PROT (test code = 3259) Trace Negative - Negat kelle POCT U GLU (test code = 3256) Neg Negative - Negati ve POCT U KETONE (test code = 3258) . Negative - Neg ative POCT U UROBILI (test code = 3260) . 0.2-1 POCT U BILI (test code = 3261) . Negative - Negat kelle POCT U BLD (test code = 3257) . Negative - Negati ve POCT U COLOR (test code = 3266) POCT U APPEAR (test code = 3267) [facility] URINALYSIS W SPECIFIC [id number] 16:11:00* Test Item Value Reference Range Interpretation Comme nts POCT U SP GRAV (test code = 3255) . 1.005-1.025 POCT PH U (test code = 3254) . 5-8 POCT U LEUK EST (test code = 3263) . Negative - N egative POCT U NIT (test code = 3262) . Negative - Negati ve POCT U PROT (test code = 3259) trace Negative - Negat kelle POCT U GLU (test code = 3256) normal Negative - Negati ve POCT U KETONE (test code = 3258) . Negative - Neg ative POCT U UROBILI (test code = 3260) . 0.2-1 POCT U BILI (test code = 3261) . Negative - Negat kelle POCT U BLD (test code = 3257) . Negative - Negati ve POCT U COLOR (test code = 3266) POCT U APPEAR (test code = 3267) [facility] URINALYSIS W SPECIFIC [id number] 16:11:00* Test Item Value Reference Range Interpretation Comme nts POCT U SP GRAV (test code = 3255) . 1.005-1.025 POCT PH U (test code = 3254) . 5-8 POCT U LEUK EST (test code = 3263) . Negative - N egative POCT U NIT (test code = 3262) . Negative - Negati ve POCT U PROT (test code = 3259) trace Negative - Negat kelle POCT U GLU (test code = 3256) normal Negative - Negati ve POCT U KETONE (test code = 3258) . Negative - Neg ative POCT U UROBILI (test code = 3260) . 0.2-1 POCT U BILI (test code = 3261) . Negative - Negat kelle POCT U BLD (test code = 3257) . Negative - Negati ve POCT U COLOR (test code = 3266) POCT U APPEAR (test code = 3267) [facility] URINALYSIS W SPECIFIC [id number] 16:11:00* Test Item Value Reference Range Interpretation Comme nts POCT U SP GRAV (test code = 3255) . 1.005-1.025 POCT PH U (test code = 3254) . 5-8 POCT U LEUK EST (test code = 3263) . Negative - N egative POCT U NIT (test code = 3262) . Negative - Negati ve POCT U PROT (test code = 3259) trace Negative - Negat kelle POCT U GLU (test code = 3256) normal Negative - Negati ve POCT U KETONE (test code = 3258) . Negative - Neg ative POCT U UROBILI (test code = 3260) . 0.2-1 POCT U BILI (test code = 3261) . Negative - Negat kelle POCT U BLD (test code = 3257) . Negative - Negati ve POCT U COLOR (test code = 3266) POCT U APPEAR (test code = 3267) [facility] URINALYSIS W SPECIFIC [id number] 16:11:00* Test Item Value Reference Range Interpretation Comme nts POCT U SP GRAV (test code = 3255) . 1.005-1.025 POCT PH U (test code = 3254) . 5-8 POCT U LEUK EST (test code = 3263) . Negative - N egative POCT U NIT (test code = 3262) . Negative - Negati ve POCT U PROT (test code = 3259) trace Negative - Negat kelle POCT U GLU (test code = 3256) normal Negative - Negati ve POCT U KETONE (test code = 3258) . Negative - Neg ative POCT U UROBILI (test code = 3260) . 0.2-1 POCT U BILI (test code = 3261) . Negative - Negat kelle POCT U BLD (test code = 3257) . Negative - Negati ve POCT U COLOR (test code = 3266) POCT U APPEAR (test code = 3267) [facility] URINALYSIS W SPECIFIC [id number] 14:01:00* Test Item Value Reference Range Interpretation Comme nts POCT U SP GRAV (test code = 3255) . 1.005-1.025 POCT PH U (test code = 3254) . 5-8 POCT U LEUK EST (test code = 3263) . Negative - N egative POCT U NIT (test code = 3262) . Negative - Negati ve POCT U PROT (test code = 3259) Trace Negative - Negat kelle POCT U GLU (test code = 3256) Neg Negative - Negati ve POCT U KETONE (test code = 3258) . Negative - Neg ative POCT U UROBILI (test code = 3260) . 0.2-1 POCT U BILI (test code = 3261) . Negative - Negat kelle POCT U BLD (test code = 3257) . Negative - Negati ve POCT U COLOR (test code = 3266) POCT U APPEAR (test code = 3267) [facility] URINALYSIS W SPECIFIC [id number] 15:33:00* Test Item Value Reference Range Interpretation Comme nts POCT U SP GRAV (test code = 3255) . 1.005-1.025 POCT PH U (test code = 3254) . 5-8 POCT U LEUK EST (test code = 3263) . Negative - N egative POCT U NIT (test code = 3262) . Negative - Negati ve POCT U PROT (test code = 3259) Trace Negative - Negat kelle POCT U GLU (test code = 3256) Neg Negative - Negati ve POCT U KETONE (test code = 3258) . Negative - Neg ative POCT U UROBILI (test code = 3260) . 0.2-1 POCT U BILI (test code = 3261) . Negative - Negat kelle POCT U BLD (test code = 3257) . Negative - Negati ve POCT U COLOR (test code = 3266) POCT U APPEAR (test code = 3267) [facility] URINALYSIS W SPECIFIC [id number] 15:33:00* Test Item Value Reference Range Interpretation Comme nts POCT U SP GRAV (test code = 3255) . 1.005-1.025 POCT PH U (test code = 3254) . 5-8 POCT U LEUK EST (test code = 3263) . Negative - N egative POCT U NIT (test code = 3262) . Negative - Negati ve POCT U PROT (test code = 3259) Trace Negative - Negat kelle POCT U GLU (test code = 3256) Neg Negative - Negati ve POCT U KETONE (test code = 3258) . Negative - Neg ative POCT U UROBILI (test code = 3260) . 0.2-1 POCT U BILI (test code = 3261) . Negative - Negat kelle POCT U BLD (test code = 3257) . Negative - Negati ve POCT U COLOR (test code = 3266) POCT U APPEAR (test code = 3267) [facility] URINALYSIS W SPECIFIC [id number] 15:33:00* Test Item Value Reference Range Interpretation Comme nts POCT U SP GRAV (test code = 3255) . 1.005-1.025 POCT PH U (test code = 3254) . 5-8 POCT U LEUK EST (test code = 3263) . Negative - N egative POCT U NIT (test code = 3262) . Negative - Negati ve POCT U PROT (test code = 3259) Trace Negative - Negat kelle POCT U GLU (test code = 3256) Neg Negative - Negati ve POCT U KETONE (test code = 3258) . Negative - Neg ative POCT U UROBILI (test code = 3260) . 0.2-1 POCT U BILI (test code = 3261) . Negative - Negat kelle POCT U BLD (test code = 3257) . Negative - Negati ve POCT U COLOR (test code = 3266) POCT U APPEAR (test code = 3267) [facility] URINALYSIS W SPECIFIC [id number] 16:24:00* Test Item Value Reference Range Interpretation Comme nts POCT U SP GRAV (test code = 3255) . 1.005-1.025 POCT PH U (test code = 3254) . 5-8 POCT U LEUK EST (test code = 3263) . Negative - N egative POCT U NIT (test code = 3262) . Negative - Negati ve POCT U PROT (test code = 3259) Trace Negative - Negat kelle POCT U GLU (test code = 3256) Neg Negative - Negati ve POCT U KETONE (test code = 3258) . Negative - Neg ative POCT U UROBILI (test code = 3260) . 0.2-1 POCT U BILI (test code = 3261) . Negative - Negat kelle POCT U BLD (test code = 3257) . Negative - Negati ve POCT U COLOR (test code = 3266) POCT U APPEAR (test code = 3267) [facility] URINALYSIS W SPECIFIC [id number] 15:54:00* Test Item Value Reference Range Interpretation Comme nts POCT U SP GRAV (test code = 3255) . 1.005-1.025 POCT PH U (test code = 3254) . 5-8 POCT U LEUK EST (test code = 3263) . Negative - N egative POCT U NIT (test code = 3262) . Negative - Negati ve POCT U PROT (test code = 3259) Trace Negative - Negat kelle POCT U GLU (test code = 3256) Neg Negative - Negati ve POCT U KETONE (test code = 3258) . Negative - Neg ative POCT U UROBILI (test code = 3260) . 0.2-1 POCT U BILI (test code = 3261) . Negative - Negat kelle POCT U BLD (test code = 3257) . Negative - Negati ve POCT U COLOR (test code = 3266) POCT U APPEAR (test code = 3267) [facility] URINALYSIS W SPECIFIC [id number] 15:54:00* Test Item Value Reference Range Interpretation Comme nts POCT U SP GRAV (test code = 3255) . 1.005-1.025 POCT PH U (test code = 3254) . 5-8 POCT U LEUK EST (test code = 3263) . Negative - N egative POCT U NIT (test code = 3262) . Negative - Negati ve POCT U PROT (test code = 3259) Trace Negative - Negat kelle POCT U GLU (test code = 3256) Neg Negative - Negati ve POCT U KETONE (test code = 3258) . Negative - Neg ative POCT U UROBILI (test code = 3260) . 0.2-1 POCT U BILI (test code = 3261) . Negative - Negat kelle POCT U BLD (test code = 3257) . Negative - Negati ve POCT U COLOR (test code = 3266) POCT U APPEAR (test code = 3267) [facility] URINALYSIS W SPECIFIC [id number] 15:54:00* Test Item Value Reference Range Interpretation Comme nts POCT U SP GRAV (test code = 3255) . 1.005-1.025 POCT PH U (test code = 3254) . 5-8 POCT U LEUK EST (test code = 3263) . Negative - N egative POCT U NIT (test code = 3262) . Negative - Negati ve POCT U PROT (test code = 3259) Trace Negative - Negat kelle POCT U GLU (test code = 3256) Neg Negative - Negati ve POCT U KETONE (test code = 3258) . Negative - Neg ative POCT U UROBILI (test code = 3260) . 0.2-1 POCT U BILI (test code = 3261) . Negative - Negat kelle POCT U BLD (test code = 3257) . Negative - Negati ve POCT U COLOR (test code = 3266) POCT U APPEAR (test code = 3267) [facility] URINALYSIS W SPECIFIC [id number] 15:20:00* Test Item Value Reference Range Interpretation Comme nts POCT U SP GRAV (test code = 3255) . 1.005-1.025 POCT PH U (test code = 3254) . 5-8 POCT U LEUK EST (test code = 3263) . Negative - Negative POCT U NIT (test code = 3262) . Negative - Negati ve POCT U PROT (test code = 3259) trace Negative - Negat kelle POCT U GLU (test code = 3256) negative Negative - Negati ve POCT U KETONE (test code = 3258) . Negative - Neg ative POCT U UROBILI (test code = 3260) . 0.2-1 POCT U BILI (test code = 3261) . Negative - Negat kelle POCT U BLD (test code = 3257) . Negative - Negati ve POCT U COLOR (test code = 3266) POCT U APPEAR (test code = 3267) [facility] URINALYSIS W SPECIFIC [id number] 19:05:00* Test Item Value Reference Range Interpretation Comme nts POCT U SP GRAV (test code = 3255) . 1.005-1.025 POCT PH U (test code = 3254) . 5-8 POCT U LEUK EST (test code = 3263) . Negative - N egative POCT U NIT (test code = 3262) . Negative - Negati ve POCT U PROT (test code = 3259) Trace Negative - Negat kelle POCT U GLU (test code = 3256) Neg. Negative - Negati ve POCT U KETONE (test code = 3258) . Negative - Neg ative POCT U UROBILI (test code = 3260) . 0.2-1 POCT U BILI (test code = 3261) . Negative - Negat kelle POCT U BLD (test code = 3257) . Negative - Negati ve POCT U COLOR (test code = 3266) POCT U APPEAR (test code = 3267) [facility] URINALYSIS W SPECIFIC [id number] 19:05:00* Test Item Value Reference Range Interpretation Comme nts POCT U SP GRAV (test code = 3255) . 1.005-1.025 POCT PH U (test code = 3254) . 5-8 POCT U LEUK EST (test code = 3263) . Negative - N egative POCT U NIT (test code = 3262) . Negative - Negati ve POCT U PROT (test code = 3259) Trace Negative - Negat kelle POCT U GLU (test code = 3256) Neg. Negative - Negati ve POCT U KETONE (test code = 3258) . Negative - Neg ative POCT U UROBILI (test code = 3260) . 0.2-1 POCT U BILI (test code = 3261) . Negative - Negat kelle POCT U BLD (test code = 3257) . Negative - Negati ve POCT U COLOR (test code = 3266) POCT U APPEAR (test code = 3267) [facility] [id number] 14:49:00* Test Item Value Reference Range Interpretation Comme nts POCT PREG (test code = 1605) Positive On board controls acceptable with C Line (test code = 3574) Yes POCT PREG LOT # (test code = 3575) POCT PREG TEST DATE ( test code = 3576) [facility] URINALYSIS W/O SPECIFIC [id number] 14:49:00* Test Item Value Reference Range Interpretation Comme nts POCT PH U (test code = 3254) 6 mg/dl 5-8 POCT U LEUK EST (test code = 3263) 1+ Negative - Negative POCT U NIT (test code = 3262) Neg Negative - Negati ve POCT U PROT (test code = 3259) 1+ Negative - Negat kelle POCT U GLU (test code = 3256) Neg Negative - Negati ve POCT U KETONE (test code = 3258) None Negative - Neg ative POCT U BLD (test code = 3257) Neg Negative - Negati ve [facility]
--- NOTE | 2024-02-05 14:30 | EDPHYS ---
Physician Documentation [facility] Name: Maricel Nur Age: 28 yrs Sex: Female : 1995 Arrival Date: 02/05/2024 Time: 12:09 Bed IW2 Private MD: ED Physician Jose Marx HPI: 02/04 14:30 This 28 yrs old Female presents to ER via Ambulatory with complaints of Chest Pain, ms3 Headache. 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 Patient states the chest pain is sharp and worse with deep breathing. Patient endorses popping ears, runny nose, cough. Patient states she is taken Bromfed without relief. 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 - Infectious Disease History:: Denies. - Social history:: Smoking status: Patient denies any tobacco usage or history of. ROS: 14:30 Constitutional: Negative for fever, and chills. Neck: Negative for injury, pain, and ms3 swelling, Cardiovascular: Negative for chest pain, and palpitations. 14:30 MS/Extremity: Negative for injury and deformity, Skin: Negative for injury, rash, and discoloration, 14:30 ENT: Positive for nasal discharge, rhinorrhea, 14:30 Respiratory: Positive for cough, Exam: 14:30 Constitutional: This is a well developed, well nourished patient who is awake, alert, ms3 and in no acute distress. Head/Face: Normocephalic, atraumatic. Neck: Trachea midline, no cervical lymphadenopathy. Supple, full range of motion without nuchal rigidity, or vertebral point tenderness. No Meningismus. Chest/axilla: Normal chest wall appearance and motion. Nontender with no deformity. Cardiovascular: Regular rate and rhythm with a normal S1 and S2. No gallops, murmurs, or rubs. Normal PMI, no JVD. No pulse deficits. Respiratory: Lungs have equal breath sounds bilaterally, clear to auscultation and percussion. No rales, rhonchi or wheezes noted. No increased work of breathing, no retractions or nasal flaring. Abdomen/GI: Soft, non-tender, with normal bowel sounds. No distension or tympany. No guarding or rebound. No evidence of tenderness throughout. Skin: Warm, dry with normal turgor. Normal color with no rashes, no lesions, and no evidence of cellulitis. Vital Signs: 12:44 BP 105 / 73; Pulse 96; Resp 18; Temp 97.3; Pulse Ox 100% ; ko1 MDM: 12:52 Patient medically screened. ms3 14:30 Differential diagnosis: acute pericarditis. Data reviewed: vital signs, nurses notes. ms3 ED course: Discussed treatment plan with patient. Prior to patient receiving x-ray or EKG patient left from the lobby. Attempted to call patient x 2 without success. Patient is free to return to continue her care at any time.. 02/04 12:42 Order name: EKG; Complete Time: 12:42 ms3 02/04 12:42 Order name: EKG - Nurse/Tech; Complete Time: 10:35 ms3 Administered Medications: No medications were administered Disposition Summary: 02/05/24 14:30 Discharge Ordered Notes: Location: Home ms3 Condition: Stable ms3 Diagnosis - Chest pain on breathing ms3 - Headache ms3 - Nasal congestion ms3 - Cough ms3 Followup: ms3 - With: Matt Caceres DO - When: 2 - 3 days - Reason: Recheck today's complaints Discharge Instructions: - Discharge Summary Sheet ms3 - Nonspecific Chest Pain, Adult ms3 - General Headache Without Cause ms3 - Cough, Adult, [id number] ms3 - Cough, Adult ms3 Forms: - Medication Reconciliation Form ms3 - Thank You Letter ms3 - Antibiotic Education ms3 - Prescription Opioid Use ms3 - Patient Portal Instructions ms3 - Leadership Thank You Letter ms3 Signatures: Dispatcher [employer] EDMS Jose Marx DO DO ms3 Nayana Gutiérrez, RN RN ko1 Corrections: (The following items were deleted from the chart) 14:53 12:42 Chest Pa And Lat (2 Views)+RAD.[email or web address] ordered. EDMS EDMS
--- NOTE | 2024-02-05 14:30 | ER ---
Nurse's Notes [facility] Name: Maricel Nur Age: 28 yrs Sex: Female : 1995 Arrival Date: 02/05/2024 Time: 12:09 Bed IW2 Private MD: Diagnosis: Chest pain on breathing;Headache;Nasal congestion;Cough Presentation: 02/04 12:44 Chief complaint: Patient states: chest pain and headache since last week, stays ko1 constant, kids have been sick. Coronavirus screen: At this time, the client does not indicate any symptoms associated with coronavirus-19. Ebola Screen: No symptoms or risks identified at this time. Initial Sepsis Screen: Does the patient meet any 2 criteria? No. Patient's initial sepsis screen is negative. Does the patient have a suspected source of infection? No. Patient's initial sepsis screen is negative. Risk Assessment: Do you want to hurt yourself or someone else? Patient reports no desire to harm self or others. Onset of symptoms is unknown. 12:44 Method Of Arrival: Ambulatory ko1 12:44 Acuity: ALEXANDER 4 ko1 Triage Assessment: 12:45 General: Appears in no apparent distress. Behavior is calm, cooperative, appropriate ko1 for age. Pain: Complains of pain in chest. Cardiovascular: Reports chest pain. 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 - Infectious Disease History:: Denies. - Social history:: Smoking status: Patient denies any tobacco usage or history of. Screenin:08 [facility] ED Fall Risk Assessment (Adult) History of falling in the last 3 months, as6 including since admission No falls in past 3 months (0 pts) Confusion or Disorientation No (0 pts) Intoxicated or Sedated No (0 pts) Impaired Gait No (0 pts) Mobility Assist Device Used No (0 pt) Altered Elimination No (0 pt) Score/Fall Risk Level 0 - 2 = Low Risk Oriented to surroundings, Maintained a safe environment, Educated pt \T\ family on fall prevention, incl call for assistance when getting out of bed, Assessed \T\ reinforced patient's understanding of fall precautions. Abuse screen: Denies threats or abuse. Denies injuries from another. Nutritional screening: No deficits noted. Tuberculosis screening: No symptoms or risk factors identified. Assessment: 12:50 General: Appears in no apparent distress. uncomfortable, Behavior is calm, cooperative. rs5 12:50 Pain: Complains of pain in chest Pain currently is 3 out of 10 on a pain scale. Quality rs5 of pain is described as aching, Is continuous. Neuro: Level of Consciousness is awake, alert, obeys commands, Oriented to person, place, time, situation. Cardiovascular: Patient's skin is warm and dry. Rhythm is regular. Respiratory: Airway is patent Respiratory effort is even, unlabored, Respiratory pattern is regular, symmetrical. GI: Abdomen is round non-distended, Abd is soft and non tender. : No signs and/or symptoms were reported regarding the genitourinary system. EENT: No signs and/or symptoms were reported regarding the EENT system. Derm: Skin is intact, Skin is pink, warm \T\ dry. Musculoskeletal: Range of motion: intact in all extremities. 13:05 Reassessment: Patient and/or family updated on plan of care and expected duration. Pain rs5 level reassessed. Patient is alert, oriented x 3, equal unlabored respirations, skin warm/dry/pink. Vital Signs: 12:44 BP 105 / 73; Pulse 96; Resp 18; Temp 97.3; Pulse Ox 100% ; ko1 ED Course: 12:12 Patient arrived in ED. mg5 12:18 Jose Marx DO is Attending Physician. ms3 12:45 Triage completed. ko1 12:45 Arm band placed on right wrist. Patient placed in waiting room, Patient notified of ko1 wait time. 13:44 Paul Bryan, RN is Primary Nurse. rs5 13:44 Patient's name was called from ER lobby. No response. aa5 13:50 Radiology exam delayed due to pt was not found in the lobby when called for. az 14:23 Radiology exam delayed due to pt called for again by radiology staff and no answer. rs4 14:29 Matt Caceres DO is Referral Physician. ms3 15:08 Patient has correct armband on for positive identification. as6 15:09 No provider procedures requiring assistance completed. Patient did not have IV access as6 during this emergency room visit. Administered Medications: No medications were administered Medication: 15:09 VIS not applicable for this client. as6 Outcome: 14:30 Discharge ordered by MD. ms3 15:09 Discharged to home ambulatory, as6 15:09 Condition: stable 15:09 Discharge instructions given to pt left before receiving discharge instructions 15:10 Patient left the ED. as6 Signatures: Shelby Ramirez, RN RN aa5 Urvashi Carpenter Marcus, DO DO ms3 Jamey Mojica, RN RN as6 Nayana Gutiérrez RN RN juan c1 Berta Vyas rs4 Paul Bryan RN RN rs5 Heidi Sanchez [facility] [place]
[2024-02-05 15:42] VITALS: BP 105/73; TEMP 97.3; O2SAT 100
== END 2024-02-05 15:10 | disposition home or self-care (01) ==
LOC: ER 12:09
DX: R07.1 Chest pain on breathing (principal); R51.9 Headache, unspecified; R09.81 Nasal congestion; R05.9 Cough, unspecified; Z88.8 Allergy status to other drugs, medicaments and biological substances
CPT/HCPCS: 99282

== ENCOUNTER 2025-01-05 07:33 | Emergency (ER) | payer OTHER ==
--- OUTSIDE RECORDS SUMMARY | 2025-01-05 07:41 | XMS REPORT | Continuity of Care Document ---
Author Name Unknown Address [address] [facility] [place] [address] [facility] [address] [facility] [address] [place] [address] Care Team Providers Care Seam Checker Name Role Phone Pcp, Patient Does Not Have A Primary Care Physic arvind ALANNAH IRWIN Attending Clinician Unavailable ALANNAH IRWIN Attending Clinician Unavailable Alannah Irwin NP Attending Clinician [phone] MD CAMILLE Attending Clinician Unavailab YAJAIRA Milton Attending Clinician UnavailELAN Izaguirre Attending Clinician Unavailable EDUARDO HENRY Attending Clinician Unavail able HAFSA SMART Attending Clinician Unavaila uday Provider, [facility] Shauna Hafsa Guadalupe CNM Attending Clinician [phone] Doctor Unassigned, Exira Attending Clinician GIANNI Shook Attending Clinician UnavailGianni Lee Attending Clinician + [phone] Eduardo Kruse Attending Clinician + Edel Carballo MD Attending Clinician [phone] Verito Davis MD, Shankar Attending Clinician + Juan Francisco Garcia MD Attending Clinician [phone] Lab, Bonilla-Rmchp Attending Clinician Unavailable Ultrasound, Bonilla-Salomon Attending Clinician Unavaila uday Nogueira MD, Joanne Attending Clinician [phone] Clint PEREZ, Olivier Stark Attending Clinician [phone] Owen PEREZ, Ange Attending Clinician [phone] Estela Esposito Attending Clinician Unavail able Amy Bartlett MD Attending Clinician [phone] Emma Francis Attending Clinician Unavailable Allan PEREZ, Last Burns Attending Clinician [phone] AMY BARTLETT Attending Clinician Unavailable AMY BARTLETT Attending Clinician Unavailable Faculty, Bonilla Latif Attending Clinician Unava ilable JUAN FRANCISCO GARCIA Admitting Clinician Unavailable Haris PEREZ, Edel Hart Admitting Clinician [phone] Juan Francisco Garcia MD Admitting Clinician [phone] Payers Payer Name Policy Type Policy Number Effective Date Expirati on Date Source [facility] MEDICAID [id number] 2020 00:00:00 [facility] [id number] 2024 00:00:00 ROBBIE E[facility] [employer] VERIF[employer] 94 ON 9 [id number] 2023 00:00:00 [place] [id number] 2019 00:00:00 Problems Condition Name Condition Details Condition Category Status Onset Date Resolution Date Last Treatment Date Treating Clinician Comments Source Family history of breast cancer Family history of breast cancer Disease Active 04-01 00:00: 00 Jing cabrera Family history of breast cancer gene mutation in first degree relative Family history of breast cancer gene mutation in first degree relative Disease Active 11-15 00:00: 00 [facility] Family history of breast cancer in first degree relative Family history of breast cancer in first degree relative Disease Active 11-15 00:00: 00 [facility] S/P tubal ligation S/P tubal ligation Disease Active 2019-10 00:00: 00 [facility] Anemia of mother in , antepartum Anemia of mother in , antepartum Disease Active 2020-1 0-19 00:00: 00 [facility] epistaxis epistaxis Disease Active 2020-0 7-14 00:00: 00 [facility] Generalize d anxiety disorder Generalize d anxiety disorder Disease Active 2019-0 4-03 00:00: 00 [facility] Major depressive disorder Major depressive disorder Disease Active 0 4-03 00:00: 00 [facility] Nausea and vomiting during Nausea and vomiting during Disease Active 0 4-03 00:00: 00 [facility] Stickler's syndrome Stickler's syndrome Disease Active 2018 7-09 00:00: 00 [facility] Bleeding after intercours e Bleeding after intercours e Disease Resolve d 1- 00:00: 00 2023-01-11 00:00:00 2023-01-11 11:23:28 [facility] ROM (rupture of membranes) , premature ROM (rupture of membranes) , premature Disease Resolve d 2019-1 0-30 00:00: 00 2022-11-15 00:00:00 2022-11-15 09:06:23 [facility] Obesity (BMI 30-39.9) Obesity (BMI 30-39.9) Disease Resolve d 2019-10 0-30 00:00: 00 2022-11-15 00:00:00 2022-11-15 09:06:19 [facility] Anemia of mother in , antepartum Anemia of mother in , antepartum Disease Resolve d 2019-1 0-19 00:00: 00 2022-11-15 00:00:00 2022-11-15 09:06:08 [facility] Heartburn in Heartburn in Disease Resolve d 2020-0 9-11 00:00: 00 2022-11-15 00:00:00 2022-11-15 09:06:11 [facility] epistaxis epistaxis Disease Resolve d 2020-0 7-14 00:00: 00 2022-11-15 00:00:00 2022-11-15 09:06:21 [facility] Supervisio n of high-risk Supervisio n of high-risk Disease Resolve d 2019-0 5-18 00:00: 00 2022-11-15 00:00:00 2022-11-15 09:06:30 [facility] Multiparit y Multiparit y Disease Resolve d 2019-0 5-18 00:00: 00 2022-11-15 00:00:00 2022-11-15 09:06:16 [facility] History of miscarriag e History of miscarriag e Disease Resolve d 2019-0 5-18 00:00: 00 2022-11-15 00:00:00 2022-11-15 09:06:14 [facility] Nausea and vomiting during Nausea and vomiting during Disease Resolve d 2019-0 4-03 00:00: 00 2022-11-15 00:00:00 2022-11-15 09:06:17 [facility] Depression during Depression during Disease Resolve d 2019-0 4-03 00:00: 00 2022-11-15 00:00:00 2022-11-15 09:06:09 [facility] Rubella non-immune status, antepartum Rubella non-immune status, antepartum Disease Resolve d 2019-0 3-20 00:00: 00 2022-11-15 00:00:00 2022-11-15 09:06:24 Overview: Formattin g of this note might be different from the original. Address pp [facility] (spontaneo us vaginal delivery) (spontaneo us vaginal delivery) Disease Resolve d 2018-0 3-01 00:00: 00 2022-11-15 00:00:00 2022-11-15 09:06:31 [facility] Single live Single live Disease Resolve d 2018-0 3-01 00:00: 00 2022-11-15 00:00:00 2022-11-15 09:06:27 [facility] 38 weeks gestation of 38 weeks gestation of Disease Resolve d 2017-1 2-29 00:00: 00 2022-11-15 00:00:00 2022-11-15 09:06:07 [facility] History of cleft palate History of cleft palate Disease Resolve d 7 00:00: 00 2022-11-15 00:00:00 2022-11-15 09:06:13 Overview: Formattin g of this note might be different from the original. Repaired [facility] Supervisio n of high-risk Supervisio n of high-risk Disease Resolve d 01-01 00:00: 00 2020-01-17 00:00:00 2020-01-17 14:27:25 [facility] Efrain Wai's syndrome Efrain Wai's syndrome Disease Resolve d 04-23 00:00: 00 2020-01-17 00:00:00 2020-01-17 14:27:20 [facility] Pain pelvic Pain pelvic Disease Resolve d 7- 00:00: 00 2020-01-17 00:00:00 2020-01-17 14:27:14 [facility] Dysmenorrh ea Dysmenorrh ea Disease Resolve d 6-24 00:00: 00 2020-01-17 00:00:00 2020-01-17 14:27:13 [facility] Contracept kelle management Contracept kelle management Disease Resolve d 4-16 00:00: 00 2020-01-02 00:00:00 2020-01-02 10:12:35 [facility] Rubella non-immune status, antepartum Rubella non-immune status, antepartum Disease Resolve d 7- 00:00: 00 2020-01-02 00:00:00 2020-01-02 10:13:38 Overview: Address pp [facility] Routine follow-up Routine follow-up Disease Resolve d 01-07 00:00: 00 2019-01-29 00:00:00 2019-01-29 11:05:41 [facility] Labor and delivery, indication for care Labor and delivery, indication for care Disease Resolve d 3 00:00: 00 2019-01-07 00:00:00 2019-01-07 10:34:15 [facility] Premature uterine contractio ns Premature uterine contractio ns Disease Resolve d 2018-0 2-28 00:00: 00 2019-01-07 00:00:00 2019-01-07 10:33:57 [facility] H/O maternal Chlamydia infection, currently , third trimester H/O maternal Chlamydia infection, currently , third trimester Disease Resolve d 2018- 2-07 00:00: 00 2019-01-07 00:00:00 2019-01-07 10:34:08 [facility] Supervisio n of high-risk Supervisio n of high-risk Disease Resolve d - 00:00: 00 2019-01-07 00:00:00 2019-01-07 10:34:24 [facility] History of miscarriag e History of miscarriag e Disease Resolve d 7-09 00:00: 00 2019-01-07 00:00:00 2019-01-07 10:34:14 [facility] Threatened labor, third trimester Threatened labor, third trimester Disease Resolve d 2017-10 2-29 00:00: 00 2018-12-10 00:00:00 2018-12-10 00:59:37 [facility] Vaginal bleeding in , first trimester Vaginal bleeding in , first trimester Disease Resolve d 2017-0 9-12 00:00: 00 2018-12-10 00:00:00 2018-12-10 01:00:13 [facility] Chlamydia infection affecting Chlamydia infection affecting Disease Resolve d 7-10 00:00: 00 2018-12-10 00:00:00 2018-12-10 01:00:04 [facility] History of maternal Chlamydia infection, currently , third trimester History of maternal Chlamydia infection, currently , third trimester Disease Resolve d 7-09 00:00: 00 2018-12-10 00:00:00 2018-12-10 00:59:57 [facility] Contracept kelle management Contracept kelle management Disease Resolve d 2014-10 1-15 00:00: 00 2018-04-23 00:00:00 2018-04-23 15:28:44 [facility] Leukorrhea , not specified as infective Leukorrhea , not specified as infective Disease Resolve d 04-27 00:00: 00 2017-10-27 00:00:00 2017-10-27 13:29:56 [facility] Well woman exam Well woman exam Disease Resolve d 04-08 00:00: 00 2017-10-27 00:00:00 2017-10-27 13:30:00 [facility] Pain pelvic Pain pelvic Disease Resolve d 04-08 00:00: 00 2017-04-27 00:00:00 2017-04-27 15:37:14 [facility] Breast pain, left Breast pain, left Disease Resolve d 2014-10 00:00: 00 2016-04-08 00:00:00 2016-04-08 15:51:55 [facility] History of spontaneou s History of spontaneou s Disease Resolve d 2014-10 00:00: 00 2016-04-08 00:00:00 2022-05-01 00:38:07 [facility] Underweigh t Underweigh t Disease Resolve d 2-06 00:00: 00 2016-04-08 00:00:00 2016-04-08 15:52:12 [facility] Simple ovarian cyst Simple ovarian cyst Disease Resolve d 9- 00:00: 00 2015-08-30 00:00:00 2015-08-30 13:34:36 [facility] Abdominal pain, other specified site Abdominal pain, other specified site Disease Resolve d 3-03 00:00: 00 2015-08-30 00:00:00 2015-08-30 13:34:31 [facility] Urinary tract infection, site not specified Urinary tract infection, site not specified Disease Resolve d 3-03 00:00: 00 2015-08-03 00:00:00 2015-08-03 11:04:23 [facility] Surveillan ce of previously prescribed contracept kelle pill Surveillan ce of previously prescribed contracept kelle pill Disease Resolve d 11-21 00:00: 00 2015-08-03 00:00:00 2015-08-03 11:04:05 [facility] Encounter for routine gynecologi kavon examinatio n Encounter for routine gynecologi kavon examinatio n Disease Resolve d 11-21 00:00: 00 2015-08-03 00:00:00 2022-05-01 00:34:25 [facility] Need for HPV vaccinatio n Need for HPV vaccinatio n Disease Resolve d 11-21 00:00: 00 2015-08-03 00:00:00 2015-08-03 11:04:14 [facility] Retinoschi sis, Macular Retinoschi sis, Macular Disease Resolve d 05-06 00:00: 00 2014-11-21 00:00:00 2014-11-21 16:12:44 [facility] Cataract, Right Eye Cataract, Right Eye Disease Resolve d 05-06 00:00: 00 2014-11-21 00:00:00 2014-11-21 16:12:42 [facility] Allergies, Adverse Reactions, Alerts Allergy Name Allergy Type Status Severity Reaction(s) Onset Date Inactive Date Treating Clinician Comments Source Cefprozi l Monohydr ate Propensi ty to adverse reaction s Active Hives 12-12 00:00: 00 Jing Norton Externa l CEFPROZI L DRUG INGREDI Active Hives 12-12 00:00: 00 [facility] Cefprozi l Propensi ty to adverse reaction s Active Hives 12-12 00:00: 00 [facility] Social History Social Habit Start Date Stop Date Quantity Comments Source ASSERTION 2019-12-06 00:00:00 [facility] Sexual orientation Hakan Chiang - External Alcoholic beverage intake 2024-11-19 00:00:00 2024-11-19 00:00:00 .14 /d [facility] History of Social function 2024-02-27 00:00:00 2024-02-27 00:00:00 Jing Chiang - External Alcohol Comment 2024-02-27 00:00:00 2024-02-27 00:00:00 social drinker Jing Chiang - External Exposure to SARS-CoV-2 (event) 2022-12-31 00:00:00 2023-01-10 14:55:00 Not sure [facility] Tobacco use and exposure 2022-11-15 00:00:00 2022-11-15 00:00:00 Smokeless tobacco non-user [facility] Alcohol intake 2022-11-15 00:00:00 2022-11-15 00:00:00 .14 /d [facility] Education 2020-08-14 00:00:00 2020-08-14 00:00:00 11 [facility] History SDOH Financial 2020-08-14 00:00:00 2020-08-14 00:00:00 4 [facility] Sex assigned at 1995 00:00:00 1995 00:00:00 Jing Chiang - External Smoking Status Start Date Stop Date Source Never smoked tobacco [facility] Medications Ordered Medication Name Filled Medication Name Start Date Stop Date Current Medication? Ordering Clinician Indication Dosage Frequency Signature (SIG) Comments Components Source methylPREDN ISolone 4 mg tablets 11-20 00:00: 00 Yes [id number] Take by mouth SEE-INSTRU CTIONS. follow package directions [facility] dexamethaso ne (DECADRON PHOSPHATE) 4 mg/mL injection 4 mg 11-19 07:45: 00 11-19 06:51 :00 No 4mg 4 mg, Intramuscu lar, ONCE, 1 dose, On Mon11/19/24 at 0145, Routine [facility] penicillin g benzathine (BICILLIN L-A) injection 1.2 Million Units 11-19 07:00: 00 11-19 06:56 :00 No 1.210 1.2 Million Units, Intramuscu lar, ONCE, 1 dose, On Mon11/19/24 at 0100, VEENA, Reason for Anti-Infec tive: Documented Infection, Documented Infection Site: HEENT, Duration of Therapy: Once (ED) [facility] ketorolac 10 mg tablet 2-04 00:00: 00 Yes [id number] 10mg Take 1 tablet by mouth every 6 (six) hours as needed for Pain (scale 4-6), Pain (scale 1-3) or Pain (scale 7-10). [facility] maalox-lido nancy 2% viscous 1:1 Susp suspension 2- 00:00: 00 Yes [id number] 10mL Take 10 mL by mouth as needed (gargle and swallow). [facility] Norethin Ponce-Eth Estrad-FE 1-20 MG-MCG(24) oral Tablet 04-03 00:00: 00 Yes [id number] 1{tbl} Take 1 tablet by mouth daily Refill q72 days, continuous use skip placebo. Jing cabrera Norethin Ponce-Eth Estrad-FE 1-20 MG-MCG(24) oral Tablet 02-26 00:00: 00 04-03 00:00 :00 No [id number] 1{tbl} Take 1 tablet by mouth daily. Jing cabrera Doxycycline Hyclate 100 MG oral Tablet 02-26 00:00: 00 03-13 04:59 :00 No [id number] 100mg Take 1 tablet (100 mg total) by mouth 2 times daily for 14 days. Jing cabrera Metronidazo le (Flagyl) 500 MG oral Tablet 02-26 00:00: 00 03-13 04:59 :00 No [id number] 500mg Take 1 tablet (500 mg total) by mouth 2 times daily for 14 days No alcohol while on this medication . Jing cabrera metroNIDAZO LE 500 mg tablet 11-17 00:00: 00 11-25 05:59 :00 No [id number] 500mg Take 1 tablet by mouth in the morning and 1 tablet in the evening. Do all this for 7 days. [facility] PARoxetine 40 mg tablet 1-31 08:46: 56 Yes [id number] 40mg Take 40 mg by mouth in the morning. [facility] amoxicillin 500 mg capsule 10-26 00:00: 00 11-15 00:00 :00 No 1{capsu le} Take 1 capsule by mouth in the morning. [facility] acetaminoph en 325 mg tablet 2019-10 00:00: 00 11-15 00:00 :00 No [id number] 650mg Take 2 tablets by mouth every 6 (six) hours as needed for Pain (scale 1-3). [facility] docusate calcium 240 mg capsule 2019-10 00:00: 00 11-15 00:00 :00 No [id number] 240mg Take 1 capsule by mouth once daily as needed for Constipati on. [facility] vitamin w/FA tablet 2019-10 00:00: 00 11-15 00:00 :00 No [id number] 1{tbl} Take 1 tablet by mouth daily. [facility] ibuprofen 600 mg tablet 2019-10 00:00: 00 11-15 00:00 :00 No [id number] 600mg Take 1 tablet by mouth every 6 (six) hours as needed for Pain (scale 4-6). [facility] measles, mumps + rubella vac (M-M-R II) 1,000-12,50 0 TCID50/0.5 mL injection 0.5 mL 2019-10 18:00: 00 08-16 16:57 :00 No .5mL 0.5 mL, Subcutaneo us, ONCE, 1 dose, 08/16/20 at 1200, Routine [facility] docusate calcium 240 mg capsule 2019-10 00:00: 00 Yes [id number] 240mg Take 1 capsule by mouth once daily as needed for Constipati on. [facility] ibuprofen 600 mg tablet 2019-10 00:00: 00 Yes [id number] 600mg Take 1 tablet by mouth every 6 (six) hours as needed for Pain (scale 4-6). [facility] vitamin w/FA tablet 2019-10 00:00: 00 Yes [id number] 1{tbl} Take 1 tablet by mouth daily. [facility] ferrous sulfate 325 mg (65 mg iron) tablet 2019-10 00:00: 00 11-15 00:00 :00 No [id number] 325mg Take 1 tablet by mouth 2 (two) times daily. [facility] acetaminoph en 325 mg tablet 2019-10 00:00: 00 08-17 04:59 :00 No [id number] 650mg Take 2 tablets by mouth every 6 (six) hours as needed for Pain (scale 1-3). [facility] measles, mumps + rubella vac 1,000-12,50 0 TCID50/0.5 mL injection 2019-10 00:00: 00 08-17 05:59 :00 No [id number] .5mL inject 0.5 mL under the skin once now for 1 dose. [facility] HYDROcodone -acetaminop hen (NORCO 5) 5-325 mg tablet 2 tablet 2019-10 14:50: 03 Yes 2{tbl} 2 tablet, Oral, Q6HPRN, Starting 08/15/20 at 0950, Until Discontinu ed, Routine, Pain (scale 7-10) [facility] lactated ringers IV infusion 2019-10 13:42: 00 08-15 23:29 :23 No IV Infusion, CONTINUOUS PRN, Starting 08/15/20 at 0842, Until Discontinu ed, Routine, Intra-op [facility] sodium citrate-cit lana acid (BICITRA) 500-334 mg/5 mL solution 30 mL 2019-10 13:15: 00 08-15 13:32 :00 No 30mL 30 mL, Oral, ONCE, 1 dose, 08/15/20 at 0830, Routine [facility] rho(D) immune globulin (RHOGAM) syringe 300 mcg 2019-10 03:12: 24 Yes 300ug 300 mcg, Intramuscu lar, ONCE, For 1 dose, Conditiona l, Routine [facility] ibuprofen (IBU) tablet 600 mg 2019-10 03:12: 19 Yes 600mg 600 mg, Oral, Q6HPRN, Starting Mon08/14/20 at 2211, Until Discontinu ed, Routine, Pain (scale 4-6) [facility] diphenhydrA MINE-0.9 % sod.chlr (BENADRYL) 25 mg/50 mL piggyback 25 mg 2019-10 0 03:12: 19 Yes 25mg 25 mg, IV Piggyback, Q6HPRN, Starting Mon08/14/20 at 2211, Until Discontinu ed, 50 mL [facility] ondansetron (ZOFRAN (PF)) injection 4 mg 2019-10 03:12: 19 Yes 4mg 4 mg, Slow IV Push, Q8HPRN, Starting Mon08/14/20 at 2211, Until Discontinu ed, Routine, Nausea and Vomiting (N/V) [facility] simethicone (GAS RELIEF (SIMETHICON E)) chewable tablet 160 mg 2019-10 03:12: 19 Yes 160mg 160 mg, Oral, PC+HSPRN, Starting Mon08/14/20 at 2211, Until Discontinu ed, Routine, Gas [facility] docusate calcium (SURFAK) capsule 240 mg 2019-10 03:12: 19 Yes 240mg 240 mg, Oral, QDAILYPRN, Starting Mon08/14/20 at 2211, Until Discontinu ed, Routine, Constipati on [facility] magnesium hydroxide (MILK OF MAGNESIA) 400 mg/5 mL suspension 30 mL 2019-10 03:12: 19 Yes 30mL 30 mL, Oral, QDAILYPRN, Starting Mon08/14/20 at 2211, Until Discontinu ed, Routine, Constipati on [facility] acetaminoph en (TYLENOL) tablet 650 mg 2019-10 03:12: 18 Yes 650mg 650 mg, Oral, Q6HPRN, Starting Mon08/14/20 at 2211, Until Discontinu ed, Routine, Pain (scale 1-3) [facility] diphenhydrA MINE (BENADRYL) tablet 25 mg 2019-10 03:12: 18 Yes 25mg 25 mg, Oral, Q6HPRN, Starting Mon08/14/20 at 2212, Until Discontinu ed, Routine, Sleep, Itching [facility] benzocaine- menthol (DERMOPLAST ) 20-0.5 % topical spray 2019-10 03:12: 18 Yes Topical, PRN, Starting Mon08/14/20 at 2212, Until Discontinu ed, Routine, Perineum discomfort [facility] diphenhydrA MINE (BENADRYL) injection 25 mg 2019-10 23:30: 00 08-14 23:38 :00 No 25mg 25 mg, Slow IV Push, ONCE, 1 dose, Mon08/14/20 at 1845, Routine [facility] sodium citrate-cit lana acid (BICITRA) 500-334 mg/5 mL solution 30 mL 2019-10 17:55: 09 08-14 18:31 :00 No 30mL 30 mL, Oral, PRE-PROCED URE ONCE, 1 dose, Starting Mon08/14/20 at 1255, Until Mon08/14/20 at 1331, Routine, Surgery/Pr ocedure [facility] lactated ringers IV infusion 500 mL 2019-10 17:55: 09 08-14 18:31 :00 No 500mL at 999 mL/hr, 500 mL, IV Infusion, PRN - SEE INSTRUCTIO NS, 1 dose, Starting Mon08/14/20 at 1255, Until Mon08/14/20 at 1331, Routine [facility] terbutaline (BRETHINE) injection 0.25 mg 2019-10 13:09: 00 08-14 13:11 :00 No .25mg 0.25 mg, Subcutaneo us, ONCE, 1 dose, Mon08/14/20 at 0815, Routine [facility] D5W-LR IV infusion 1,000 mL 2019-10 10:00: 00 08-15 03:12 :25 No 1000mL at 125 mL/hr, IV Infusion, CONTINUOUS , Starting Mon08/14/20 at 0500, Until Mon08/14/20 at 2212, Routine [facility] proMETHazin e (PHENERGAN) 25 mg in NaCl 0.9% (NS) 50 mL piggyback 2019-10 09:58: 29 08-15 03:12 :25 No 25mg 25 mg, IV Piggyback, Q4HPRN, Starting Mon08/14/20 at 0458, Until Mon08/14/20 at 2212, 50 mL [facility] FENTanyl PF (SUBLIMAZE (PF)) injection 100 mcg 2019-10 09:58: 14 08-15 03:12 :25 No 100ug 100 mcg, Slow IV Push, Q1HPRN, Starting Mon08/14/20 at 0458, Until Mon08/14/20 at 2212, Routine, Pain (scale 4-6), Pain (scale 7-10) [facility] LR 1000 mL + oxytocin 20 units IV Solution 2019-10 09:45: 00 08-15 03:12 :25 No 2mU/min at 6-120 mL/hr, IV Infusion, TITRATE, Starting Mon08/14/20 at 0445, Until Mon08/14/20 at 2212, VEENA [facility] ascorbic acid, vitamin C, 500 mg tablet 2019-10 0 00:00: 00 08-16 00:00 :00 No [id number] 500mg Take 1 tablet by mouth 3 (three) times daily. [facility] ferrous sulfate 325 mg (65 mg iron) tablet 2019-10 0 00:00: 08-16 00:00 :00 No [id number] 325mg Take 1 tablet by mouth 2 (two) times daily. [facility] SERTraline (ZOLOFT) 50 mg tablet 4-06 00:00: 00 11-15 00:00 :00 No [id number] 50mg Take 1 tablet by mouth daily. [facility] proMETHazin e 25 mg tablet 3-19 00:00: 00 08-16 00:00 :00 No [id number] 25mg Take 1 tablet by mouth every 6 (six) hours as needed for Nausea and Vomiting (N/V). [facility] No known medications No Un [facility] Immunizations Ordered Immunization Name Filled Immunization Name Date Status Comments Source SARS-COV-2 COVID-19 VACCINE - (MODERNA) 2021-04-14 00:00:00 Completed [facility] SARS-COV-2 COVID-19 VACCINE - (MODERNA) 2021-04-14 00:00:00 Completed [facility] SARS-COV-2 COVID-19 VACCINE - (MODERNA) 2021-04-14 00:00:00 Completed [facility] SARS-COV-2 COVID-19 VACCINE - (MODERNA) 2021-04-14 00:00:00 Completed [facility] SARS-COV-2 COVID-19 VACCINE - (MODERNA) 2021-04-14 00:00:00 Completed SARS-COV-2 COVID-19 VACCINE - (MODERNA) 2021-03-17 00:00:00 Completed [facility] SARS-COV-2 COVID-19 VACCINE - (MODERNA) 2021-03-17 00:00:00 Completed [facility] SARS-COV-2 COVID-19 VACCINE - (MODERNA) 2021-03-17 00:00:00 Completed [facility] SARS-COV-2 COVID-19 VACCINE - (MODERNA) 2021-03-17 00:00:00 Completed [facility] SARS-COV-2 COVID-19 VACCINE - (MODERNA) 2021-03-17 00:00:00 Completed MMR 2020-08-16 00:00:00 Completed [facility] MMR 2020-08-16 00:00:00 Completed [facility] MMR 2020-08-16 00:00:00 Completed [facility] MMR 2020-08-16 00:00:00 Completed [facility] MMR 2020-08-16 00:00:00 Completed [facility] MMR 2020-08-16 00:00:00 Completed [facility] MMR 2020-08-16 00:00:00 Completed [facility] MMR 2020-08-16 00:00:00 Completed [facility] MMR 2020-08-16 00:00:00 Completed [facility] Influenza Virus Vaccine Quad .5 mL IM 6+ MO 2020-01-02 00:00:00 Completed [facility] Influenza Virus Vaccine Quad .5 mL IM 6+ MO 2020-01-02 00:00:00 Completed [facility] Influenza Virus Vaccine Quad .5 mL IM 6+ MO 2020-01-02 00:00:00 Completed [facility] Influenza Virus Vaccine Quad .5 mL IM 6+ MO 2020-01-02 00:00:00 Completed [facility] Influenza Virus Vaccine Quad .5 mL IM 6+ MO 2020-01-02 00:00:00 Completed [facility] Influenza Virus Vaccine Quad .5 mL IM 6+ MO 2020-01-02 00:00:00 Completed [facility] Influenza Virus Vaccine Quad .5 mL IM 6+ MO 2020-01-02 00:00:00 Completed [facility] Influenza Virus Vaccine Quad .5 mL IM 6+ MO 2020-01-02 00:00:00 Completed [facility] Influenza Virus Vaccine Quad .5 mL IM 6+ MO 2020-01-02 00:00:00 Completed [facility] Influenza Virus Vaccine Quad .5 mL IM 6+ MO 2020-01-02 00:00:00 Completed [facility] Influenza Virus Vaccine Quad .5 mL IM 6+ MO 2020-01-02 00:00:00 Completed [facility] Influenza Virus Vaccine Quad .5 mL IM 6+ MO 2020-01-02 00:00:00 Completed [facility] Influenza Virus Vaccine Quad .5 mL IM 6+ MO 2020-01-02 00:00:00 Completed [facility] Influenza Virus Vaccine Quad .5 mL IM 6+ MO 2020-01-02 00:00:00 Completed [facility] Influenza Virus Vaccine Quad .5 mL IM 6+ MO 2020-01-02 00:00:00 Completed [facility] Influenza Virus Vaccine Quad .5 mL IM 6+ MO 2020-01-02 00:00:00 Completed [facility] Influenza Virus Vaccine Quad .5 mL IM 6+ MO 2020-01-02 00:00:00 Completed [facility] Influenza Virus Vaccine Quad .5 mL IM 6+ MO 2020-01-02 00:00:00 Completed [facility] Influenza Virus Vaccine Quad .5 mL IM 6+ MO 2020-01-02 00:00:00 Completed [facility] Influenza Virus Vaccine Quad .5 mL IM 6+ MO 2020-01-02 00:00:00 Completed [facility] Influenza Virus Vaccine Quad .5 mL IM 6+ MO (FLUZONE/FLULAVAL/F LUARIX) 2020-01-02 00:00:00 Completed [facility] Influenza Virus Vaccine Quad .5 mL IM 6+ MO 2020-01-02 00:00:00 Completed [facility] Influenza Virus Vaccine Quad .5 mL IM 6+ MO 2020-01-02 00:00:00 Completed [facility] Influenza Virus Vaccine Quad .5 mL IM 6+ MO 2020-01-02 00:00:00 Completed [facility] Influenza Virus Vaccine Quad .5 mL IM 6+ MO 2020-01-02 00:00:00 Completed [facility] Influenza Virus Vaccine Quad .5 mL IM 6+ MO 2020-01-02 00:00:00 Completed [facility] Influenza Virus Vaccine Quad .5 mL IM 6+ MO 2020-01-02 00:00:00 Completed [facility] Influenza Virus Vaccine Quad .5 mL IM 6+ MO 2020-01-02 00:00:00 Completed [facility] Influenza Virus Vaccine Quad .5 mL IM 6+ MO 2020-01-02 00:00:00 Completed [facility] Influenza Virus Vaccine Quad .5 mL IM 6+ MO 2020-01-02 00:00:00 Completed [facility] Influenza Virus Vaccine Quad .5 mL IM 6+ MO 2020-01-02 00:00:00 Completed [facility] Influenza Virus Vaccine Quad .5 mL IM 6+ MO 2020-01-02 00:00:00 Completed [facility] Influenza Virus Vaccine Quad .5 mL IM 6+ MO 2020-01-02 00:00:00 Completed [facility] Influenza Virus Vaccine Quad .5 mL IM 6+ MO 2020-01-02 00:00:00 Completed [facility] Influenza Virus Vaccine Quad .5 mL IM 6+ MO 2020-01-02 00:00:00 Completed [facility] Influenza Virus Vaccine Quad .5 mL IM 6+ MO 2020-01-02 00:00:00 Completed [facility] Influenza Virus Vaccine Quad .5 mL IM 6+ MO 2020-01-02 00:00:00 Completed [facility] Influenza Virus Vaccine Quad .5 mL IM 6+ MO 2020-01-02 00:00:00 Completed [facility] Influenza Virus Vaccine Quad .5 mL IM 6+ MO 2020-01-02 00:00:00 Completed [facility] Influenza Virus Vaccine Quad .5 mL IM 6+ MO 2020-01-02 00:00:00 Completed [facility] Influenza Virus Vaccine Quad .5 mL IM 6+ MO 2020-01-02 00:00:00 Completed [facility] Influenza Virus Vaccine Quad .5 mL IM 6+ MO 2020-01-02 00:00:00 Completed [facility] Tdap 2018-10-18 00:00:00 Completed [facility] TDAP 2018-10-18 00:00:00 Completed [facility] TDAP 2018-10-18 00:00:00 Completed [facility] TDAP 2018-10-18 00:00:00 Completed [facility] TDAP 2018-10-18 00:00:00 Completed [facility] TDAP 2018-10-18 00:00:00 Completed [facility] TDAP 2018-10-18 00:00:00 Completed [facility] Tdap 2018-10-18 00:00:00 Completed [facility] Tdap 2018-10-18 00:00:00 Completed [facility] Tdap 2018-10-18 00:00:00 Completed [facility] Tdap 2018-10-18 00:00:00 Completed [facility] Tdap 2018-10-18 00:00:00 Completed [facility] Tdap 2018-10-18 00:00:00 Completed [facility] Tdap 2018-10-18 00:00:00 Completed [facility] Tdap 2018-10-18 00:00:00 Completed [facility] Tdap 2018-10-18 00:00:00 Completed [facility] Tdap 2018-10-18 00:00:00 Completed [facility] Tdap 2018-10-18 00:00:00 Completed [facility] Tdap 2018-10-18 00:00:00 Completed [facility] Tdap 2018-10-18 00:00:00 Completed [facility] TDAP 2018-10-18 00:00:00 Completed [facility] TDAP 2018-10-18 00:00:00 Completed [facility] TDAP 2018-10-18 00:00:00 Completed [facility] TDAP 2018-10-18 00:00:00 Completed [facility] Tdap 2018-10-18 00:00:00 Completed [facility] TDAP 2018-10-18 00:00:00 Completed [facility] TDAP 2018-10-18 00:00:00 Completed [facility] TDAP 2018-10-18 00:00:00 Completed [facility] TDAP 2018-10-18 00:00:00 Completed [facility] TDAP 2018-10-18 00:00:00 Completed [facility] TDAP 2018-10-18 00:00:00 Completed [facility] TDAP 2018-10-18 00:00:00 Completed [facility] TDAP 2018-10-18 00:00:00 Completed [facility] TDAP 2018-10-18 00:00:00 Completed [facility] TDAP 2018-10-18 00:00:00 Completed [facility] Tdap 2018-10-18 00:00:00 Completed [facility] TDAP 2018-10-18 00:00:00 Completed [facility] TDAP 2018-10-18 00:00:00 Completed [facility] TDAP 2018-10-18 00:00:00 Completed [facility] Tdap 2018-10-18 00:00:00 Completed [facility] TDAP 2018-10-18 00:00:00 Completed [facility] TDAP 2018-10-18 00:00:00 Completed [facility] TDAP 2018-10-18 00:00:00 Completed [facility] Influenza Virus Vaccine Quad IM Multi-dose 6+ MO 2018-08-20 00:00:00 Completed [facility] Influenza Virus Vaccine Quad IM Multi-dose 6+ MO 2018-08-20 00:00:00 Completed [facility] Influenza Virus Vaccine Quad IM Multi-dose 6+ MO 2018-08-20 00:00:00 Completed [facility] Influenza Virus Vaccine Quad IM Multi-dose 6+ MO 2018-08-20 00:00:00 Completed [facility] Influenza Virus Vaccine Quad IM Multi-dose 6+ MO 2018-08-20 00:00:00 Completed [facility] Influenza Virus Vaccine Quad IM Multi-dose 6+ MO 2018-08-20 00:00:00 Completed [facility] Influenza Virus Vaccine Quad IM Multi-dose 6+ MO 2018-08-20 00:00:00 Completed [facility] Influenza Virus Vaccine Quad IM Multi-dose 6+ MO 2018-08-20 00:00:00 Completed [facility] Influenza Virus Vaccine Quad IM Multi-dose 6+ MO 2018-08-20 00:00:00 Completed [facility] Influenza Virus Vaccine Quad IM Multi-dose 6+ MO 2018-08-20 00:00:00 Completed [facility] Influenza Virus Vaccine Quad IM Multi-dose 6+ MO 2018-08-20 00:00:00 Completed [facility] Influenza Virus Vaccine Quad IM Multi-dose 6+ MO 2018-08-20 00:00:00 Completed [facility] Influenza Virus Vaccine Quad IM Multi-dose 6+ MO 2018-08-20 00:00:00 Completed [facility] Influenza Virus Vaccine Quad IM Multi-dose 6+ MO 2018-08-20 00:00:00 Completed [facility] Influenza Virus Vaccine Quad IM Multi-dose 6+ MO 2018-08-20 00:00:00 Completed [facility] Influenza Virus Vaccine Quad IM Multi-dose 6+ MO 2018-08-20 00:00:00 Completed [facility] Influenza Virus Vaccine Quad IM Multi-dose 6+ MO 2018-08-20 00:00:00 Completed [facility] Influenza Virus Vaccine Quad IM Multi-dose 6+ MO 2018-08-20 00:00:00 Completed [facility] Influenza Virus Vaccine Quad IM Multi-dose 6+ MO 2018-08-20 00:00:00 Completed [facility] Influenza Virus Vaccine Quad IM Multi-dose 6+ MO 2018-08-20 00:00:00 Completed [facility] Influenza Virus Vaccine Quad IM Multi-dose 6+ MO 2018-08-20 00:00:00 Completed [facility] Influenza Virus Vaccine Quad IM Multi-dose 6+ MO 2018-08-20 00:00:00 Completed [facility] Influenza Virus Vaccine Quad IM Multi-dose 6+ MO 2018-08-20 00:00:00 Completed [facility] Influenza Virus Vaccine Quad IM Multi-dose 6+ MO 2018-08-20 00:00:00 Completed [facility] Influenza Virus Vaccine Quad IM Multi-dose 6+ MO 2018-08-20 00:00:00 Completed [facility] Influenza Virus Vaccine Quad IM Multi-dose 6+ MO 2018-08-20 00:00:00 Completed [facility] Influenza Virus Vaccine Quad IM Multi-dose 6+ MO 2018-08-20 00:00:00 Completed [facility] Influenza Virus Vaccine Quad IM Multi-dose 6+ MO 2018-08-20 00:00:00 Completed [facility] Influenza Virus Vaccine Quad IM Multi-dose 6+ MO 2018-08-20 00:00:00 Completed [facility] Influenza Virus Vaccine Quad IM Multi-dose 6+ MO 2018-08-20 00:00:00 Completed [facility] Influenza Virus Vaccine Quad IM Multi-dose 6+ MO 2018-08-20 00:00:00 Completed [facility] Influenza Virus Vaccine Quad IM Multi-dose 6+ MO 2018-08-20 00:00:00 Completed [facility] Influenza Virus Vaccine Quad IM Multi-dose 6+ MO 2018-08-20 00:00:00 Completed [facility] Influenza Virus Vaccine Quad IM Multi-dose 6+ MO 2018-08-20 00:00:00 Completed [facility] Influenza Virus Vaccine Quad IM Multi-dose 6+ MO 2018-08-20 00:00:00 Completed [facility] Influenza Virus Vaccine Quad IM Multi-dose 6+ MO 2018-08-20 00:00:00 Completed [facility] Influenza Virus Vaccine Quad IM Multi-dose 6+ MO 2018-08-20 00:00:00 Completed [facility] Influenza Virus Vaccine Quad IM Multi-dose 6+ MO 2018-08-20 00:00:00 Completed [facility] Influenza Virus Vaccine Quad IM Multi-dose 6+ MO 2018-08-20 00:00:00 Completed [facility] Influenza Virus Vaccine Quad IM Multi-dose 6+ MO 2018-08-20 00:00:00 Completed [facility] Influenza Virus Vaccine Quad IM Multi-dose 6+ MO 2018-08-20 00:00:00 Completed [facility] Influenza Virus Vaccine Quad IM Multi-dose 6+ MO 2018-08-20 00:00:00 Completed [facility] Influenza Virus Vaccine Quad IM Multi-dose 6+ MO 2018-08-20 00:00:00 Completed [facility] HPV 2015-05-06 00:00:00 Completed [facility] HPV 2015-05-06 00:00:00 Completed [facility] HPV 2015-05-06 00:00:00 Completed [facility] HPV 2015-05-06 00:00:00 Completed [facility] HPV 2015-05-06 00:00:00 Completed [facility] HPV 2015-05-06 00:00:00 Completed [facility] HPV 2015-05-06 00:00:00 Completed [facility] HPV 2015-05-06 00:00:00 Completed [facility] HPV 2015-05-06 00:00:00 Completed [facility] HPV 2015-05-06 00:00:00 Completed [facility] HPV 2015-05-06 00:00:00 Completed [facility] HPV 2015-05-06 00:00:00 Completed [facility] HPV 2015-05-06 00:00:00 Completed [facility] HPV 2015-05-06 00:00:00 Completed [facility] HPV 2015-05-06 00:00:00 Completed [facility] HPV 2015-05-06 00:00:00 Completed [facility] HPV 2015-05-06 00:00:00 Completed [facility] HPV 2015-05-06 00:00:00 Completed [facility] HPV 2015-05-06 00:00:00 Completed [facility] HPV 2015-05-06 00:00:00 Completed [facility] HPV 2015-05-06 00:00:00 Completed [facility] HPV 2015-05-06 00:00:00 Completed [facility] HPV 2015-05-06 00:00:00 Completed [facility] HPV 2015-05-06 00:00:00 Completed [facility] HPV 2015-05-06 00:00:00 Completed [facility] HPV 2015-05-06 00:00:00 Completed [facility] HPV 2015-05-06 00:00:00 Completed [facility] HPV 2015-05-06 00:00:00 Completed [facility] HPV 2015-05-06 00:00:00 Completed [facility] HPV 2015-05-06 00:00:00 Completed [facility] HPV 2015-05-06 00:00:00 Completed [facility] HPV 2015-05-06 00:00:00 Completed [facility] HPV 2015-05-06 00:00:00 Completed [facility] HPV 2015-05-06 00:00:00 Completed [facility] HPV 2015-05-06 00:00:00 Completed [facility] HPV 2015-05-06 00:00:00 Completed [facility] HPV 2015-05-06 00:00:00 Completed [facility] HPV 2015-05-06 00:00:00 Completed [facility] HPV 2015-05-06 00:00:00 Completed [facility] HPV 2015-05-06 00:00:00 Completed [facility] HPV 2015-05-06 00:00:00 Completed [facility] HPV 2015-05-06 00:00:00 Completed [facility] HPV 2015-05-06 00:00:00 Completed [facility] HPV 2015-01-02 00:00:00 Completed [facility] MMR 2015-01-02 00:00:00 Completed [facility] HPV 2015-01-02 00:00:00 Completed [facility] MMR 2015-01-02 00:00:00 Completed [facility] HPV 2015-01-02 00:00:00 Completed [facility] MMR 2015-01-02 00:00:00 Completed [facility] HPV 2015-01-02 00:00:00 Completed [facility] MMR 2015-01-02 00:00:00 Completed [facility] HPV 2015-01-02 00:00:00 Completed [facility] MMR 2015-01-02 00:00:00 Completed [facility] HPV 2015-01-02 00:00:00 Completed [facility] MMR 2015-01-02 00:00:00 Completed [facility] HPV 2015-01-02 00:00:00 Completed [facility] HPV 2015-01-02 00:00:00 Completed MMR 2015-01-02 00:00:00 Completed MMR 2015-01-02 00:00:00 Completed [facility] HPV 2015-01-02 00:00:00 Completed [facility] MMR 2015-01-02 00:00:00 Completed [facility] HPV 2015-01-02 00:00:00 Completed [facility] MMR 2015-01-02 00:00:00 Completed [facility] HPV 2015-01-02 00:00:00 Completed [facility] HPV 2015-01-02 00:00:00 Completed [facility] MMR 2015-01-02 00:00:00 Completed [facility] MMR 2015-01-02 00:00:00 Completed [facility] HPV 2015-01-02 00:00:00 Completed [facility] MMR 2015-01-02 00:00:00 Completed [facility] HPV 2015-01-02 00:00:00 Completed [facility] MMR 2015-01-02 00:00:00 Completed [facility] HPV 2015-01-02 00:00:00 Completed [facility] MMR 2015-01-02 00:00:00 Completed [facility] HPV 2015-01-02 00:00:00 Completed [facility] MMR 2015-01-02 00:00:00 Completed [facility] HPV 2015-01-02 00:00:00 Completed [facility] MMR 2015-01-02 00:00:00 Completed [facility] HPV 2015-01-02 00:00:00 Completed [facility] MMR 2015-01-02 00:00:00 Completed [facility] HPV 2015-01-02 00:00:00 Completed [facility] MMR 2015-01-02 00:00:00 Completed [facility] HPV 2015-01-02 00:00:00 Completed [facility] MMR 2015-01-02 00:00:00 Completed [facility] HPV 2015-01-02 00:00:00 Completed [facility] MMR 2015-01-02 00:00:00 Completed [facility] HPV 2015-01-02 00:00:00 Completed [facility] MMR 2015-01-02 00:00:00 Completed [facility] HPV 2015-01-02 00:00:00 Completed [facility] MMR 2015-01-02 00:00:00 Completed [facility] HPV 2015-01-02 00:00:00 Completed [facility] HPV 2015-01-02 00:00:00 Completed [facility] MMR 2015-01-02 00:00:00 Completed [facility] MMR 2015-01-02 00:00:00 Completed [facility] HPV 2015-01-02 00:00:00 Completed [facility] MMR 2015-01-02 00:00:00 Completed [facility] HPV 2015-01-02 00:00:00 Completed [facility] MMR 2015-01-02 00:00:00 Completed [facility] HPV 2015-01-02 00:00:00 Completed [facility] MMR 2015-01-02 00:00:00 Completed [facility] HPV 2015-01-02 00:00:00 Completed [facility] MMR 2015-01-02 00:00:00 Completed [facility] HPV 2015-01-02 00:00:00 Completed [facility] MMR 2015-01-02 00:00:00 Completed [facility] HPV 2015-01-02 00:00:00 Completed [facility] MMR 2015-01-02 00:00:00 Completed [facility] HPV 2015-01-02 00:00:00 Completed [facility] MMR 2015-01-02 00:00:00 Completed [facility] HPV 2015-01-02 00:00:00 Completed [facility] MMR 2015-01-02 00:00:00 Completed [facility] HPV 2015-01-02 00:00:00 Completed [facility] MMR 2015-01-02 00:00:00 Completed [facility] HPV 2015-01-02 00:00:00 Completed [facility] MMR 2015-01-02 00:00:00 Completed [facility] HPV 2015-01-02 00:00:00 Completed [facility] MMR 2015-01-02 00:00:00 Completed [facility] HPV 2015-01-02 00:00:00 Completed [facility] MMR 2015-01-02 00:00:00 Completed [facility] HPV 2015-01-02 00:00:00 Completed [facility] MMR 2015-01-02 00:00:00 Completed [facility] HPV 2015-01-02 00:00:00 Completed [facility] HPV 2015-01-02 00:00:00 Completed [facility] MMR 2015-01-02 00:00:00 Completed [facility] MMR 2015-01-02 00:00:00 Completed [facility] HPV 2015-01-02 00:00:00 Completed [facility] MMR 2015-01-02 00:00:00 Completed [facility] HPV 2015-01-02 00:00:00 Completed [facility] MMR 2015-01-02 00:00:00 Completed [facility] HPV 2015-01-02 00:00:00 Completed [facility] MMR 2015-01-02 00:00:00 Completed [facility] HPV 2014-11-06 00:00:00 Completed [facility] HPV 2014-11-06 00:00:00 Completed [facility] HPV 2014-11-06 00:00:00 Completed [facility] HPV 2014-11-06 00:00:00 Completed [facility] HPV 2014-11-06 00:00:00 Completed [facility] HPV 2014-11-06 00:00:00 Completed [facility] HPV 2014-11-06 00:00:00 Completed [facility] HPV 2014-11-06 00:00:00 Completed [facility] HPV 2014-11-06 00:00:00 Completed [facility] HPV 2014-11-06 00:00:00 Completed [facility] HPV 2014-11-06 00:00:00 Completed [facility] HPV 2014-11-06 00:00:00 Completed [facility] HPV 2014-11-06 00:00:00 Completed [facility] HPV 2014-11-06 00:00:00 Completed [facility] HPV 2014-11-06 00:00:00 Completed [facility] HPV 2014-11-06 00:00:00 Completed [facility] HPV 2014-11-06 00:00:00 Completed [facility] HPV 2014-11-06 00:00:00 Completed [facility] HPV 2014-11-06 00:00:00 Completed [facility] HPV 2014-11-06 00:00:00 Completed [facility] HPV 2014-11-06 00:00:00 Completed [facility] HPV 2014-11-06 00:00:00 Completed [facility] HPV 2014-11-06 00:00:00 Completed [facility] HPV 2014-11-06 00:00:00 Completed [facility] HPV 2014-11-06 00:00:00 Completed [facility] HPV 2014-11-06 00:00:00 Completed [facility] HPV 2014-11-06 00:00:00 Completed [facility] HPV 2014-11-06 00:00:00 Completed [facility] HPV 2014-11-06 00:00:00 Completed [facility] HPV 2014-11-06 00:00:00 Completed [facility] HPV 2014-11-06 00:00:00 Completed [facility] HPV 2014-11-06 00:00:00 Completed [facility] HPV 2014-11-06 00:00:00 Completed [facility] HPV 2014-11-06 00:00:00 Completed [facility] HPV 2014-11-06 00:00:00 Completed [facility] HPV 2014-11-06 00:00:00 Completed [facility] HPV 2014-11-06 00:00:00 Completed [facility] HPV 2014-11-06 00:00:00 Completed [facility] HPV 2014-11-06 00:00:00 Completed [facility] HPV 2014-11-06 00:00:00 Completed [facility] HPV 2014-11-06 00:00:00 Completed [facility] HPV 2014-11-06 00:00:00 Completed [facility] HPV 2014-11-06 00:00:00 Completed [facility] Td 2008-10-16 00:00:00 Completed [facility] TD, NOS 2008-10-16 00:00:00 Completed [facility] TD, NOS 2008-10-16 00:00:00 Completed [facility] TD, NOS 2008-10-16 00:00:00 Completed [facility] TD, NOS 2008-10-16 00:00:00 Completed [facility] TD, NOS 2008-10-16 00:00:00 Completed [facility] Td 2008-10-16 00:00:00 Completed [facility] TD, NOS 2008-10-16 00:00:00 Completed [facility] Td 2008-10-16 00:00:00 Completed [facility] Td 2008-10-16 00:00:00 Completed [facility] Td 2008-10-16 00:00:00 Completed [facility] Td 2008-10-16 00:00:00 Completed [facility] Td 2008-10-16 00:00:00 Completed [facility] Td 2008-10-16 00:00:00 Completed [facility] Td 2008-10-16 00:00:00 Completed [facility] Td 2008-10-16 00:00:00 Completed [facility] Td 2008-10-16 00:00:00 Completed [facility] Td 2008-10-16 00:00:00 Completed [facility] Td 2008-10-16 00:00:00 Completed [facility] Td 2008-10-16 00:00:00 Completed [facility] Td 2008-10-16 00:00:00 Completed [facility] Td 2008-10-16 00:00:00 Completed [facility] Td 2008-10-16 00:00:00 Completed [facility] Td 2008-10-16 00:00:00 Completed [facility] Td 2008-10-16 00:00:00 Completed [facility] Td 2008-10-16 00:00:00 Completed [facility] Td 2008-10-16 00:00:00 Completed [facility] Td 2008-10-16 00:00:00 Completed [facility] Td 2008-10-16 00:00:00 Completed [facility] Td 2008-10-16 00:00:00 Completed [facility] Td 2008-10-16 00:00:00 Completed [facility] Td 2008-10-16 00:00:00 Completed [facility] Td 2008-10-16 00:00:00 Completed [facility] Td 2008-10-16 00:00:00 Completed [facility] Td 2008-10-16 00:00:00 Completed [facility] Td 2008-10-16 00:00:00 Completed [facility] Td 2008-10-16 00:00:00 Completed [facility] Td 2008-10-16 00:00:00 Completed [facility] Td 2008-10-16 00:00:00 Completed [facility] Td 2008-10-16 00:00:00 Completed [facility] Td 2008-10-16 00:00:00 Completed [facility] Td 2008-10-16 00:00:00 Completed [facility] Td 2008-10-16 00:00:00 Completed [facility] TD, NOS Unknown Completed [facility] HPV Unknown Completed [facility] MMR Unknown Completed [facility] Influenza Virus Vaccine Quad IM Multi-dose 6+ MO Unknown Completed [facility] TDAP Unknown Completed [facility] Influenza Virus Vaccine Quad .5 mL IM 6+ MO (FLUZONE/FLULAVAL/F LUARIX) Unknown Completed [facility] SARS-COV-2 COVID-19 VACCINE - (MODERNA) Unknown Completed [facility] Vital Signs Vital Name Observation Time Observation Value Comments S ource Systolic blood pressure 2024-11-19 07:30:00 105 mm[Hg] [facility] Diastolic blood pressure 2024-11-19 07:30:00 76 mm[Hg] [facility] Heart rate 2024-11-19 07:30:00 64 /min [facility] Body temperature 2024-11-19 07:30:00 36.61 Delma [facility] Respiratory rate 2024-11-19 07:30:00 18 /min [facility] Oxygen saturation in Arterial blood by Pulse oximetry 2024-11-19 07:30:00 100 /min [facility] Body height 2024-11-19 05:57:00 165.1 cm [facility] Body weight 2024-11-19 05:57:00 56.7 kg [facility] BMI 2024-11-19 05:57:00 20.80 kg/m2 [facility] Body height 2024-04-03 13:53:00 165.1 cm Hilda ey Seybold - External Systolic blood pressure 2024-02-27 16:29:00 114 mm[Hg] Jing Seybo ld - External Diastolic blood pressure 2024-02-27 16:29:00 75 mm[Hg] Jing Seybo [facility] - External Heart rate 2024-02-27 16:29:00 83 /min Kelse y Seybold - External Respiratory rate 2024-02-27 16:29:00 18 /min Jing Seybold - External Body height 2024-02-27 16:29:00 165.1 cm Hilda ey Seybold - External Body weight 2024-02-27 16:29:00 58.786 kg Hilda ey Seybold - External BMI 2024-02-27 16:29:00 21.57 kg/m2 Hilda ey Seybold - External Systolic blood pressure 2023-01-10 20:24:00 118 mm[Hg] [facility] Diastolic blood pressure 2023-01-10 20:24:00 95 mm[Hg] [facility] Heart rate 2023-01-10 20:24:00 72 /min [facility] Body temperature 2023-01-10 20:24:00 36.61 Delma [facility] Respiratory rate 2023-01-10 20:24:00 18 /min [facility] Body height 2023-01-10 20:24:00 165.1 cm [facility] Body weight 2023-01-10 20:24:00 61.054 kg [facility] BMI 2023-01-10 20:24:00 22.40 kg/m2 [facility] Systolic blood pressure 2022-11-15 14:28:00 104 mm[Hg] [facility] Diastolic blood pressure 2022-11-15 14:28:00 54 mm[Hg] [facility] Heart rate 2022-11-15 14:28:00 81 /min [facility] Body temperature 2022-11-15 14:28:00 37.39 Delma [facility] Respiratory rate 2022-11-15 14:28:00 18 /min [facility] Body height 2022-11-15 14:28:00 165.1 cm [facility] Body weight 2022-11-15 14:28:00 60.691 kg [facility] BMI 2022-11-15 14:28:00 22.27 kg/m2 [facility] Systolic blood pressure 2020-09-07 16:25:00 103 mm[Hg] [facility] Diastolic blood pressure 2020-09-07 16:25:00 67 mm[Hg] [facility] Heart rate 2020-09-07 16:25:00 61 /min [facility] Body temperature 2020-09-07 16:25:00 36.83 Delma [facility] Respiratory rate 2020-09-07 16:25:00 16 /min [facility] Body height 2020-09-07 16:25:00 165.1 cm [facility] Body weight 2020-09-07 16:25:00 74.299 kg [facility] BMI 2020-09-07 16:25:00 27.26 kg/m2 [facility] Systolic blood pressure 2020-09-07 16:25:00 103 mm[Hg] [facility] Diastolic blood pressure 2020-09-07 16:25:00 67 mm[Hg] [facility] Heart rate 2020-09-07 16:25:00 61 /min [facility] Body temperature 2020-09-07 16:25:00 36.83 Delma [facility] Respiratory rate 2020-09-07 16:25:00 16 /min [facility] Body height 2020-09-07 16:25:00 165.1 cm [facility] Body weight 2020-09-07 16:25:00 74.299 kg [facility] BMI 2020-09-07 16:25:00 27.26 kg/m2 [facility] Systolic blood pressure 2020-08-16 13:55:00 125 mm[Hg] [facility] Diastolic blood pressure 2020-08-16 13:55:00 85 mm[Hg] [facility] Heart rate 2020-08-16 13:55:00 73 /min [facility] Body temperature 2020-08-16 13:55:00 [facility] Respiratory rate 2020-08-16 13:55:00 17 /min [facility] Oxygen saturation in Arterial blood by Pulse oximetry 2020-08-16 13:55:00 97 /min [facility] Body height 2020-08-14 15:45:00 165.1 cm [facility] Body weight 2020-08-14 15:45:00 83.689 kg [facility] BMI 2020-08-14 15:45:00 30.70 kg/m2 [facility] Systolic blood pressure 2020-08-16 13:55:00 125 mm[Hg] [facility] Diastolic blood pressure 2020-08-16 13:55:00 85 mm[Hg] [facility] Heart rate 2020-08-16 13:55:00 73 /min [facility] Body temperature 2020-08-16 13:55:00 [facility] Respiratory rate 2020-08-16 13:55:00 17 /min [facility] Oxygen saturation in Arterial blood by Pulse oximetry 2020-08-16 13:55:00 97 /min [facility] Body height 2020-08-14 15:45:00 165.1 cm [facility] Body weight 2020-08-14 15:45:00 83.689 kg [facility] BMI 2020-08-14 15:45:00 30.70 kg/m2 [facility] Heart rate 2020-08-11 05:30:00 83 /min [facility] Oxygen saturation in Arterial blood by Pulse oximetry 2020-08-11 04:45:00 98 /min [facility] Systolic blood pressure 2020-08-11 04:39:00 113 mm[Hg] [facility] Diastolic blood pressure 2020-08-11 04:39:00 78 mm[Hg] [facility] Body temperature 2020-08-11 04:39:00 36.83 Delma [facility] Respiratory rate 2020-08-11 04:39:00 16 /min [facility] Body height 2020-08-11 04:39:00 165.1 cm [facility] Body weight 2020-08-11 04:39:00 83.462 kg [facility] BMI 2020-08-11 04:39:00 30.62 kg/m2 [facility] Heart rate 2020-08-11 05:30:00 83 /min [facility] Oxygen saturation in Arterial blood by Pulse oximetry 2020-08-11 04:45:00 98 /min [facility] Systolic blood pressure 2020-08-11 04:39:00 113 mm[Hg] [facility] Diastolic blood pressure 2020-08-11 04:39:00 78 mm[Hg] [facility] Body temperature 2020-08-11 04:39:00 36.83 Delma [facility] Respiratory rate 2020-08-11 04:39:00 16 /min [facility] Body height 2020-08-11 04:39:00 165.1 cm [facility] Body weight 2020-08-11 04:39:00 83.462 kg [facility] BMI 2020-08-11 04:39:00 30.62 kg/m2 [facility] Systolic blood pressure 2020-08-06 19:05:00 119 mm[Hg] [facility] Diastolic blood pressure 2020-08-06 19:05:00 72 mm[Hg] [facility] Heart rate 2020-08-06 19:05:00 91 /min [facility] Body temperature 2020-08-06 19:05:00 36.72 Delma [facility] Respiratory rate 2020-08-06 19:05:00 16 /min [facility] Body height 2020-08-06 19:05:00 165.1 cm [facility] Body weight 2020-08-06 19:05:00 81.279 kg [facility] BMI 2020-08-06 19:05:00 29.82 kg/m2 [facility] Systolic blood pressure 2020-08-06 19:05:00 119 mm[Hg] [facility] Diastolic blood pressure 2020-08-06 19:05:00 72 mm[Hg] [facility] Heart rate 2020-08-06 19:05:00 91 /min [facility] Body temperature 2020-08-06 19:05:00 36.72 Delma [facility] Respiratory rate 2020-08-06 19:05:00 16 /min [facility] Body height 2020-08-06 19:05:00 165.1 cm [facility] Body weight 2020-08-06 19:05:00 81.279 kg [facility] BMI 2020-08-06 19:05:00 29.82 kg/m2 [facility] Systolic blood pressure 2020-07-31 18:04:00 108 mm[Hg] [facility] Diastolic blood pressure 2020-07-31 18:04:00 68 mm[Hg] [facility] Heart rate 2020-07-31 18:04:00 81 /min [facility] Body temperature 2020-07-31 18:04:00 37 Delma [facility] Respiratory rate 2020-07-31 18:04:00 16 /min [facility] Body height 2020-07-31 18:04:00 165.1 cm [facility] Body weight 2020-07-31 18:04:00 80.105 kg [facility] BMI 2020-07-31 18:04:00 29.39 kg/m2 [facility] Systolic blood pressure 2020-07-24 14:32:00 115 mm[Hg] [facility] Diastolic blood pressure 2020-07-24 14:32:00 72 mm[Hg] [facility] Heart rate 2020-07-24 14:32:00 104 /min [facility] Body temperature 2020-07-24 14:32:00 36.72 Delma [facility] Respiratory rate 2020-07-24 14:32:00 16 /min [facility] Body height 2020-07-24 14:32:00 165.1 cm [facility] Body weight 2020-07-24 14:32:00 79.153 kg [facility] BMI 2020-07-24 14:32:00 29.04 kg/m2 [facility] Systolic blood pressure 2020-07-10 16:09:00 115 mm[Hg] [facility] Diastolic blood pressure 2020-07-10 16:09:00 69 mm[Hg] [facility] Heart rate 2020-07-10 16:09:00 81 /min [facility] Body temperature 2020-07-10 16:09:00 36.39 Delma [facility] Respiratory rate 2020-07-10 16:09:00 16 /min [facility] Body height 2020-07-10 16:09:00 165.1 cm [facility] Body weight 2020-07-10 16:09:00 76.885 kg [facility] BMI 2020-07-10 16:09:00 28.21 kg/m2 [facility] Systolic blood pressure 2020-06-26 13:58:00 110 mm[Hg] [facility] Diastolic blood pressure 2020-06-26 13:58:00 73 mm[Hg] [facility] Heart rate 2020-06-26 13:58:00 99 /min [facility] Body temperature 2020-06-26 13:58:00 36.11 Delma [facility] Respiratory rate 2020-06-26 13:58:00 16 /min [facility] Body height 2020-06-26 13:58:00 162.6 cm [facility] Body weight 2020-06-26 13:58:00 74.078 kg [facility] BMI 2020-06-26 13:58:00 28.03 kg/m2 [facility] Systolic blood pressure 2020-06-12 15:31:00 108 mm[Hg] [facility] Diastolic blood pressure 2020-06-12 15:31:00 69 mm[Hg] [facility] Heart rate 2020-06-12 15:31:00 97 /min [facility] Body temperature 2020-06-12 15:31:00 36.11 Delma [facility] Respiratory rate 2020-06-12 15:31:00 16 /min [facility] Body height 2020-06-12 15:31:00 162.6 cm [facility] Body weight 2020-06-12 15:31:00 72.689 kg [facility] BMI 2020-06-12 15:31:00 27.51 kg/m2 [facility] Systolic blood pressure 2020-05-28 16:20:00 114 mm[Hg] [facility] Diastolic blood pressure 2020-05-28 16:20:00 69 mm[Hg] [facility] Heart rate 2020-05-28 16:20:00 85 /min [facility] Body temperature 2020-05-28 16:20:00 36.11 Delma [facility] Respiratory rate 2020-05-28 16:20:00 16 /min [facility] Body height 2020-05-28 16:20:00 162.6 cm [facility] Body weight 2020-05-28 16:20:00 70.988 kg [facility] BMI 2020-05-28 16:20:00 26.86 kg/m2 [facility] Systolic blood pressure 2020-04-28 15:52:00 114 mm[Hg] [facility] Diastolic blood pressure 2020-04-28 15:52:00 73 mm[Hg] [facility] Heart rate 2020-04-28 15:52:00 87 /min [facility] Body temperature 2020-04-28 15:52:00 36.22 Delma [facility] Respiratory rate 2020-04-28 15:52:00 16 /min [facility] Body height 2020-04-28 15:52:00 162.6 cm [facility] Body weight 2020-04-28 15:52:00 68.266 kg [facility] BMI 2020-04-28 15:52:00 25.83 kg/m2 [facility] Systolic blood pressure 2020-03-31 15:19:00 97 mm[Hg] [facility] Diastolic blood pressure 2020-03-31 15:19:00 63 mm[Hg] [facility] Heart rate 2020-03-31 15:19:00 69 /min [facility] Body temperature 2020-03-31 15:19:00 36.39 Delma [facility] Respiratory rate 2020-03-31 15:19:00 16 /min [facility] Body height 2020-03-31 15:19:00 162.6 cm [facility] Body weight 2020-03-31 15:19:00 67.841 kg [facility] BMI 2020-03-31 15:19:00 25.67 kg/m2 [facility] Body weight 2020-02-14 18:17:00 63.504 kg [facility] BMI 2020-02-14 18:17:00 23.30 kg/m2 [facility] Systolic blood pressure 2020-02-04 16:13:00 115 mm[Hg] [facility] Diastolic blood pressure 2020-02-04 16:13:00 70 mm[Hg] [facility] Heart rate 2020-02-04 16:13:00 79 /min [facility] Body temperature 2020-02-04 16:13:00 36.17 Delma [facility] Respiratory rate 2020-02-04 16:13:00 16 /min [facility] Body height 2020-02-04 16:13:00 165.1 cm [facility] Body weight 2020-02-04 16:13:00 63.645 kg [facility] BMI 2020-02-04 16:13:00 23.35 kg/m2 [facility] Systolic blood pressure 2020-01-02 14:54:00 105 mm[Hg] [facility] Diastolic blood pressure 2020-01-02 14:54:00 64 mm[Hg] [facility] Heart rate 2020-01-02 14:54:00 83 /min [facility] Body temperature 2020-01-02 14:54:00 37 Delma [facility] Respiratory rate 2020-01-02 14:54:00 16 /min [facility] Body height 2020-01-02 14:54:00 165.1 cm [facility] Body weight 2020-01-02 14:54:00 62.171 kg [facility] BMI 2020-01-02 14:54:00 22.81 kg/m2 [facility] Procedures Procedure Date / Time Performed Performing Clinician Source RAPID STREP SCREEN FOR GROUP A 2024-11-19 06:06:00 Alannah Irwin [facility] INFLUENZA A/B RSV COVID NAAT 2024-11-19 06:06:00 Alannah Irwin [facility] HCV ANTIBODY 2023-01-10 21:00:00 Hafsa Smart [facility] HIV 1/2 AG-AB WITH REFLEX 2023-01-10 21:00:00 Hafsa Reese [facility] SYPHILIS IGG/IGM 2023-01-10 21:00:00 Hafsa Smart [facility] PATIENT FINANCIAL POLICY 2023-01-10 19:57:03 Doctor Unassigned, Exira [facility] CONSENT/REFUSAL FOR DIAGNOSIS AND TREATMENT 2022-11-15 14:10:32 Doctor Unassigned, Exira [facility] ASSIGNMENT OF BENEFITS 2022-11-15 14:10:13 Docto r Unassigned, Exira [facility] CBC WITH DIFF 2020-08-15 09:11:00 Felecia Villavicencio [facility] VENOUS CORD GAS 2020-08-15 00:55:00 Vonnie Cline [facility] CBC WITH DIFF 2020-08-14 10:24:00 Edel Carballo [facility] HEPATITIS B SURFACE ANTIGEN 2020-08-14 10:24:00 Edel Carballo [facility] ADC OR ISA ONLY - RPR 2020-08-14 10:24:00 Pablo Carballo [facility] HIV 1/2 AG-AB WITH REFLEX 2020-08-14 10:24:00 Pablo Carballo [facility] HB ABO GROUPING 2020-08-14 10:20:00 Edel Carballo [facility] RHO (D) IMMUNE GLOBULIN 2020-08-14 10:20:00 Carrie Villavicencio [facility] COVID-19 (ID NOW RAPID TESTING) 2020-08-14 09:21:00 Haris Edel Tanner [facility] ADC ONLY - FERN TEST 2020-08-14 09:05:00 Kaitlyn Carballoen Tanner [facility] L&D VISIT (NON-DELIVERED) 2020-08-14 05:01:00 Do ctor Unassigned, Exira [facility] NON-STRESS TEST 2020-08-06 19:54:52 Alex Henry [facility] POCT URINALYSIS 2020-08-06 19:06:00 Eduardo Henry [facility] POCT URINALYSIS 2020-07-31 00:00:00 Eduardo Henry [facility] POCT URINALYSIS 2020-07-24 14:33:00 Eduardo Henry [facility] POCT URINALYSIS 2020-07-10 00:00:00 Eduardo Henry [facility] POCT URINALYSIS 2020-06-26 14:01:00 Eduardo Henry [facility] POCT URINALYSIS 2020-06-12 15:33:00 Eduardo Henry [facility] STERILIZATION CONSENT FORM 2020-06-12 05:01:00 Doctor Unassigned, Exira [facility] POCT URINALYSIS 2020-05-28 16:24:00 Eduardo Henry [facility] POCT URINALYSIS 2020-04-28 15:54:00 Eduardo Henry [facility] POCT URINALYSIS 2020-03-31 15:20:00 Eduardo Henry [facility] POCT URINALYSIS 2020-02-04 19:05:00 Eduardo Henry [facility] PATIENT CORRESPONDENCE (LETTERS, USPS DOCUMENTATION) 2020-02-04 05:01:00 Doctor Unassigned, Exira [facility] FLU VACC ([id number]), 6+ MONTHS, IM, QUAD 2020-01-02 15:11:35 Eduardo Henry [facility] POCT TEST 2020-01-02 14:49:00 Jonathan Henry [facility] POCT URINALYSIS W/O SPECIFIC GRAVITY 2020-01-02 14:49:00 Eduardo Henry [facility] NOTICE OF PRIVACY PRACTICES 2020-01-02 14:17:14 Doctor Unassigned, Exira [facility] Encounters Start Date/Time End Date/Time Encounter Type Admission Type Attending [facility] Care Department Encounter ID Source 2021-08-14 01:11:54 Outpatient P [facility] [id number] [facility] 2021-08-14 01:11:26 Emergency [facility] [id number] [facility] 2021-08-14 01:11:26 Outpatient P [facility] [id number] [facility] 2024-12-12 09:26:02 2024-12-12 09:26:02 Outpatient SFA SFA [id number] Adalberto Miranda 2024-11-22 10:36:09 2024-11-22 10:36:09 Outpatient SFA SFA [id number] Adalberto Miranda 2024-11-19 00:01:00 2024-11-19 01:32:00 Emergency X ALANNAH IRWIN PAMALA [facility] ERT [id number] [facility] 2024-11-19 00:01:00 2024-11-19 01:32:00 Emergency Alannah Irwin G [facility] AT [facility] 1.2.840.114 350.1.13.10 4.2.7.2.686 [id number] [facility] 2024-11-15 13:53:24 2024-11-15 13:53:24 Outpatient SFA SFA [id number] Adalberto Burns Ruben 2024-05-02 00:00:00 2024-05-02 00:00:00 Outpatient MD JING MENENDEZ [id number] Jing Chiang 2024-04-08 10:30:00 2024-04-08 10:30:00 Outpatient YAJAIRA OCHOA JING [facility] [id number] [facility] 2024-04-03 09:00:00 2024-04-03 09:00:00 Outpatient OU, ELAN JING SOSA [id number] J[facility] 2024-03-14 00:00:00 2024-03-14 00:00:00 Outpatient OU, ELAN JING SOSA [id number] J[facility] 2024-02-27 11:15:00 2024-02-27 11:15:00 Outpatient OU, ELANIain SOSA [id number] [facility] 2024-02-06 11:00:00 2024-02-06 11:00:00 Outpatient OU, ELANCLARE SOSA [id number] [facility] 2023-01-10 15:30:00 2023-01-10 16:00:41 Outpatient R HAFSA SMART [facility] [id number] [facility] 2023-01-10 15:30:00 2023-01-10 16:00:41 Office Visit Provider, Ang-Rmchp Hafsa Barrett [facility] [employer]BILE [facility] [facility] ..114 350.1.13.10 4.2.7.2.686 [id number] [facility] 2023-01-10 00:00:00 2023-01-10 00:00:00 Orders Only Doctor Unassigned, Exira [facility] .114 350.1.13.10 4.2.7.2.686 [id number] [facility] 2023-01-08 00:00:00 2023-01-08 00:00:00 Patient Secure Msg Doctor Unassigned, Exira [facility] .114 350.1.13.10 4.2.7.2.686 [id number] [facility] 2022-11-17 00:00:00 2022-11-17 00:00:00 Case Management Hafsa Smart [facility] [employer]BILE [employer] [facility] CHILD [facility] 1.2.840.114 350.1.13.10 4.2.7.2.686 [id number] [facility] 2022-11-15 08:15:00 2022-11-15 10:03:13 Outpatient R HAFSA SMART [facility] [id number] [facility] 2022-11-15 08:15:00 2022-11-15 10:03:13 Office Visit Provider, Hafsa Urias [facility] [employer] [facility] CHILD [facility] 1.2840.114 350.1.13.10 4.2.7.2.686 [id number] [facility] 2022-11-15 00:00:00 2022-11-15 00:00:00 Orders Only Doctor Unassigned, Exira [facility] 1.0.114 350.1.13.10 4.2.7.2.686 [id number] [facility] 2020-09-28 10:30:00 2020-09-28 10:30:00 Outpatient R GIANNI DURAN [facility] [id number] [facility] 2020-09-07 10:06:40 2020-09-07 10:21:40 Routine Visit Gianni Duran [facility] [employer] [facility] CHILD [facility] 1.2840.114 350.1.13.10 4.2.7.2.686 [id number] [facility] 2020-09-07 10:06:40 2020-09-07 10:21:40 Routine Visit Gianni Duran [facility] [employer] [facility] CHILD [facility] 1.2840.114 350.1.13.10 4.2.7.2.686 [id number] 2020-09-07 10:15:00 2020-09-07 10:15:00 Outpatient Marcello HOYTEGIANNI [facility] [id number] [facility] 2020-08-26 00:00:00 2020-08-26 00:00:00 Telephone Eduardo Henry [facility] [employer] [facility] 1.2.840.114 350.1.13.10 4.2.7.2.686 [id number] [facility] 2020-08-26 00:00:00 2020-08-26 00:00:00 Telephone Eduardo Henry [facility] [employer]BILE [employer]ER [facility] 1.2.840.114 350.1.13.10 4.2.7.2.686 [id number] 2020-08-14 03:09:00 2020-08-16 12:55:00 Hospital Encounter Edel Carballo [facility], [facility] 1.2840.114 350.1.13.10 4.2.7.2.686 [id number] [facility] 2020-08-14 03:09:00 2020-08-16 12:55:00 Hospital Encounter Edel Carballo Tanner [facility], [facility] 1.2840.114 350.1.13.10 4.2.7.2.686 [id number] 2020-08-14 08:00:00 2020-08-14 08:00:00 Outpatient R EDUARDO HENRY [facility] [id number] [facility] 2020-08-14 00:00:00 2020-08-14 00:00:00 Orders Only Doctor Unassigned, Exira [facility] 1.2840.114 350.1.13.10 4.2.7.2.686 [id number] [facility] 2020-08-14 00:00:00 2020-08-14 00:00:00 Orders Only Doctor Unassigned, Exira [facility] 1.2.840.114 350.1.13.10 4.2.7.2.686 [id number] 2020-08-10 23:10:00 2020-08-11 01:00:00 Hospital Encounter Juan Francisco Garcia [facility] 1.2.840.114 350.1.13.10 4.2.7.2.686 [id number] [facility] 2020-08-10 23:10:00 2020-08-11 01:00:00 Hospital Encounter Juan Francisco Garcia [facility] 1.2.840.114 350.1.13.10 4.2.7.2.686 [id number] 2020-08-06 13:48:55 2020-08-06 14:59:03 Routine Visit Eduardo Henry [facility] AUT[employer]LE [employer] [facility] & CHILD [facility] 1.2.840.114 350.1.13.10 4.2.7.2.686 [id number] [facility] 2020-08-06 13:48:55 2020-08-06 14:59:03 Routine Visit Eduardo Henry [facility] [employer] [facility] 1.2.840.114 350.1.13.10 4.2.7.2.686 [id number] 2020-08-06 14:00:00 2020-08-06 14:00:00 Outpatient R EDUARDO HENRY [facility] [id number] [facility] 2020-08-03 00:00:00 2020-08-03 00:00:00 Telephone Eduardo Henry [facility] [employer] [facility] 1.2.840.114 350.1.13.10 4.2.7.2.686 [id number] [facility] 2020-08-03 00:00:00 2020-08-03 00:00:00 Telephone Eduardo Henry [facility] [employer] [facility] 1.2.840.114 350.1.13.10 4.2.7.2.686 [id number] 2020-07-31 12:50:31 2020-07-31 13:29:28 Routine Visit Eduardo Henry [facility] [employer] [facility] 1.2.840.114 350.1.13.10 4.2.7.2.686 [id number] 107 [id number] [facility] 2020-07-31 13:00:00 2020-07-31 13:00:00 Outpatient R WINGKATEDUARDO [facility] [id number] [facility] 2020-07-24 09:28:35 2020-07-24 09:47:20 Routine Visit Eduardo Henry [facility] [employer] [facility] CH[facility] 1.2.840.114 350.1.13.10 4.2.7.2.686 [id number] [facility] 2020-07-24 09:30:00 2020-07-24 09:30:00 Outpatient R EDUARDO HENRY [facility] [id number] [facility] 2020-07-22 00:00:00 2020-07-22 00:00:00 Telephone Eduardo Henry [facility] [employer] [facility] CH[facility] 1.2.840.114 350.1.13.10 4.2.7.2.686 [id number] [facility] 2020-07-10 11:02:49 2020-07-10 11:38:13 Routine Visit WingkatEduardo [facility] [employer] [facility] CHILD [facility] 1.2.840.114 350.1.13.10 4.2.7.2.686 [id number] [facility] 2020-07-10 11:00:00 2020-07-10 11:00:00 Outpatient R WINGKAT EDUARDO [facility] [id number] [facility] 2020-06-26 08:50:42 2020-06-26 09:05:42 Routine Visit Eduardo Henry [facility] AUTOMOBILE [employer] [facility] CH[facility] 1..840.114 350.1.13.10 4.2.7.2.686 [id number] [facility] 2020-06-26 09:00:00 2020-06-26 09:00:00 Outpatient R KODY HENRYOLA [facility] [id number] [facility] 2020-06-16 09:30:00 2020-06-16 09:30:00 Outpatient R CHRISTOPHE EDUARDO [facility] [id number] [facility] 2020-06-12 09:41:23 2020-06-12 10:59:00 Routine Visit Kody Henryola Tonie [facility] [employer] [facility] CHILD [facility] 1.840.114 350.1.13.10 4.2.7.2.686 [id number] [facility] 2020-06-12 10:30:00 2020-06-12 10:30:00 Outpatient R ANA MARIAJOSHUAKAT EDUARDO [facility] [id number] [facility] 2020-06-12 09:30:00 2020-06-12 09:30:00 Outpatient R WINGKAT EDUARDO [facility] [id number] [facility] 2020-06-12 00:00:00 2020-06-12 00:00:00 Orders Only Doctor Unassigned, Exira [facility] 1..840.114 350.1.13.10 4.2.7.2.686 [id number] [facility] 2020-06-11 10:30:00 2020-06-11 10:30:00 Outpatient R EDUARDO HENRY [facility] [id number] [facility] 2020-06-01 08:45:01 2020-06-01 08:51:02 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 Lab, Ang-Rmchp Eduardo Henry [facility] [employer]BI[employer] [facility] & CHILD [facility] 1.2.840.114 350.1.13.10 4.2.7.2.686 [id number] [facility] 2020-06-01 08:30:00 2020-06-01 08:30:00 Outpatient R WINGKATEDUARDO [facility] [id number] [facility] 2020-05-29 08:30:00 2020-05-29 08:30:00 Outpatient R [facility] [id number] [facility] 2020-05-28 11:03:28 2020-05-28 11:33:11 Routine Visit WingkatEduardo [facility] AUT[employer]BILE [employer] [facility] CHILD [facility] 1.2.840.114 350.1.13.10 4.2.7.2.686 [id number] [facility] 2020-05-28 11:00:00 2020-05-28 11:00:00 Outpatient R EDUARDO HENRY [facility] [id number] [facility] 2020-05-26 12:45:00 2020-05-26 12:45:00 Outpatient R EDUARDO HENRY [facility] [id number] [facility] 2020-04-28 10:43:31 2020-04-28 11:38:20 Routine Visit Ana MariajoshuakatEduardo [facility] AUT[employer]BILE [employer] [facility] CH[facility] 1.2.840.114 350.1.13.10 4.2.7.2.686 [id number] [facility] 2020-04-28 10:45:00 2020-04-28 10:45:00 Outpatient R WINGKATEDUARDO [facility] [id number] [facility] 2020-04-13 08:04:15 2020-04-13 09:19:15 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7.2.686 [id number] [facility] 2020-04-13 00:00:00 2020-04-13 00:00:00 Abstract Eduardo Henry [facility] AUTOM[employer]LE [employer]ER [facility] 1..114 350.1.13.10 4.2.7.2.686 [id number] [facility] 2020-03-31 10:05:38 2020-03-31 10:46:23 Routine Visit Eduardo Henry [facility] AUTOM[employer]BILE [employer]ER [facility] CH[facility] 1..114 350.1.13.10 4.2.7.2.686 [id number] [facility] 2020-03-31 10:00:00 2020-03-31 10:00:00 Outpatient R EDUARDO HENRY [facility] [id number] [facility] 2020-03-30 00:00:00 2020-03-30 00:00:00 Telephone Olivier Jaramillo [facility] .114 350.1.13.10 4.2.7.2.686 [id number] [facility] 2020-03-03 09:41:40 2020-03-03 10:18:30 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84.114 350.1.13.10 4.2.7.2.686 [id number] [facility] 2020-03-02 08:30:00 2020-03-02 08:30:00 Outpatient R EDUARDO HENRY [facility] [id number] [facility] 2020-03-02 00:00:00 2020-03-02 00:00:00 Case Management [facility] 1.84.114 350.1.13.10 4.2.7.2.686 [id number] [facility] 2020-02-28 13:00:00 2020-02-28 13:00:00 Outpatient R EDUARDO HENRY [facility] [id number] [facility] 2020-02-27 00:00:00 2020-02-27 00:00:00 [facility]..114 350.1.13.10 4.2.7.2.686 [id number] [facility] 2020-02-14 10:30:00 2020-02-14 10:30:00 Outpatient P [facility] [id number] [facility] 2020-02-14 08:09:28 2020-02-14 08:54:28 Telemedici ne Visit Estela Esposito Joseph W [facility] 1.2840.114 350.1.13.10 4.2.7.2.686 [id number] [facility] 2020-02-14 00:00:00 2020-02-14 00:00:00 Telephone Eduardo Henry [facility] AUTOM[employer]BILE [employer]ER [facility]ILD [facility] 1.2.840.114 350.1.13.10 4.2.7.2.686 [id number] [facility] 2020-02-13 00:00:00 2020-02-13 00:00:00 Telephone Amy Bartlett [facility] 1.0.114 350.1.13.10 4.2.7.2.686 [id number] [facility] 2020-02-07 00:00:00 2020-02-07 00:00:00 Telephone Eduardo Henry [facility] AUTOMOBILE UPHOLSTERER [facility] CHILD [facility] 1..840.114 350.1.13.10 4.2.7.2.686 [id number] 107 [id number] [facility] 2020-02-04 10:45:23 2020-02-04 11:51:13 Routine Visit Eduardo Henry [facility] AUTOMOBILE U[employer]ER [facility] CH[facility] 1.2.840.114 350.1.13.10 4.2.7.2.686 [id number] [facility] 2020-02-04 11:00:00 2020-02-04 11:00:00 Outpatient R EDUARDO HENRY [facility] [id number] [facility] 2020-02-04 00:00:00 2020-02-04 00:00:00 Orders Only Doctor Unassigned, Exira [facility] 1.2.840.114 350.1.13.10 4.2.7.2.686 [id number] [facility] 2020-01-24 00:00:00 2020-01-24 00:00:00 Telephone Emma Francis [facility] 1.2.840.114 350.1.13.10 4.2.7.2.686 [id number] [facility] 2020-01-21 11:32:42 2020-01-21 12:02:42 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 Ultrasound, Last Urrutia [facility] AUTOM[employer]BILE U[employer]ER [facility] CHILD [facility] 1.2840.114 350.1.13.10 4.2.7.2.686 [id number] [facility] 2020-01-21 11:30:00 2020-01-21 11:30:00 Outpatient P [facility] [id number] [facility] 2020-01-20 09:30:00 2020-01-20 09:30:00 Outpatient R AMY BARTLETT SHANNON [facility] [id number] [facility] 2020-01-20 08:11:20 2020-01-20 08:41:20 Routine Visit Faculty, Amy Broussard [facility] [employer]BILE [employer]ER [facility] CH[facility] 1.2840.114 350.1.13.10 4.2.7.2.686 [id number] [facility] 2020-01-02 09:46:25 2020-01-02 10:35:48 Initial Visit dEuardo Henry [facility] AUT[employer]LE [employer]ER [facility] CH[facility] 1.2.840.114 350.1.13.10 4.2.7.2.686 [id number] [facility] 2020-01-02 10:00:00 2020-01-02 10:00:00 Outpatient R EDUARDO HENRY [facility] [id number] [facility] 2020-01-02 00:00:00 2020-01-02 00:00:00 Orders Only Doctor Unassigned, [place] [facility] [id number] [facility] 2019-02-05 13:30:00 2019-02-05 13:38:17 Outpatient [facility] [id number] [facility] Results Test Description Test Time Test Comments Results Result Co mments Source CHLAMYDIA, NAAT, [id number] 11:45:43* Test Item Value Reference Range Interpretation Comme nts CHLAMYDIA, NAAT, URINE (test code = 85870) NEGATIVE NEGATIVE Testing is perfo rmed with [employer] 6800/8800 systems usingreal-time polymerase chain reaction (PCR) method. A negative result does not exclude low level infection, specimensampling error, or collection error. GONORRHEA, NAAT, [id number] 11:45:43* Test Item Value Reference Range Interpretation Comme nts GONORRHEA, NAAT, URINE (test code = 05974) NEGATIVE NEGATIVE Testing is perfo rmed with [employer] 6800/8800 systems usingreal-time polymerase chain reaction (PCR) method. A negative result does not exclude low level infection, specimensampling error, or collection error. VAGINAL PATHOGENS DNA [id number] 12:39:37* Test Item Value Reference Range Interpretation Comme nts FRANCES SPECIES (test code = 12564) NEGATIVE NEGATIVE G. VAGINALIS (test code = 00049) POSITIVE NEGATIVE A T. VAGINALIS (test code = 62971) NEGATIVE NEGATIVE Note: The [employer] irm VPIII Microbial Identification Testis a DNA probe test intended for use in the detectionand identification of Frances species, Gardnerellavaginalis and Trichomonas vaginalis nucleic acid. HEPATITIS PANEL, [id number] 05:14:38* Test Item Value Reference Range Interpretation Comments HEPATITIS A TOTAL AB (test code = 2725) REACTIVE NON-REACTIVE A HEPATITIS B SURF AG (test code = 2739) NON-REACTIVE NON-REACTIVE HEP B CORE TOTAL AB (test code = 2729) NON-REACTIVE NON-REACTIVE HEPATITIS B SURFACE AB (test code = 2737) NON-REACTIVE NON-REACTIVE HEPATITIS C ANTIBODY (test code = 4675) NON-REACTIVE NON-REACTIVE INTERPRETATION HEPATITIS A: (test code = 2552) (NOTE) Hepatitis A sero logy consistent with past exposure or previousvaccination to hepatitis A virus. No evidence of current acutehepatitis A infection. INTERPRETATION HEPATITIS B: (test code = 99037) (NOTE) Hepatitis B sero logy shows no evidence of past exposure to orcurrent infection with hepatitis B virus. No evidence of hepatitis Bimmunization is identified. INTERPRETATION HEPATITIS C: (test code = 55351) (NOTE) Hepatitis C sero logy shows no evidence of exposure to hepatitisC virus at this time. It can take up to 12 months after exposure tothe hepatitis C virus for antibodies to become detectable in the blood in certain patients. HEPATITIS A [id number] 05:14:38* Test Item Value Reference Range Interpretation Comme nts HEPATITIS A IgM (test code = 2728) NON-REACTIVE NON-REACTIVE UNLESS OTHERW ISE INDICATED, ALL TESTING PERFORMED AT [facility] [address] [place] [address] [employer]CHOOL BUS OPERATOR: FREDRICK PACK M.D. [place] NUMBER [id number] [facility] [place]. [id number] HIV 1/2 4TH GEN, RFLX [id number] 05:14:38* Test Item Value Reference Range Interpretation Comme nts HIV 1/2 4TH GEN, RFLX CONF ( test code = 3514) NON-REACTIVE NON-REACTIVE RPR REFLEX TO T. PALLIDUM - [id number] 04:12:26* Test Item Value Reference Range Interpretation Comme nts RPR (test code = 00022) NON-REACTIVE NON-REACTIVE RPR TITER (test code = 3500) NOT INDIC. TITER NOT INDIC. [facility] ONLY - SYPHILIS [id number] 16:14:26* Test Item Value Reference Range Interpretation Comme nts Syphilis IgG/IgM (test code = 04275-4) Non-reactive Non-reactive COLLEEN (test code = COLLEEN) Non-reactive - No serologic evidence of T. pallidum infection. Cannot exclude incubating or early syphilis. Submit a second specimen in 2-4 weeks if syphilis is clinically suspected. Equivocal - Further testing to follow. Reactive - Further testing to follow. Lab Interpretation (test code = 05675-0) [facility] - SYPHILIS [id number] 16:14:26* Test Item Value Reference Range Interpretation Comme nts Syphilis IgG/IgM (test code = 08281-9) Non-reactive Non-reactive COLLEEN (test code = COLLEEN) Non-reactive - No serologic evidence of T. pallidum infection. Cannot exclude incubating or early syphilis. Submit a second specimen in 2-4 weeks if syphilis is clinically suspected. Equivocal - Further testing to follow. Reactive - Further testing to follow. Lab Interpretation (test code = 86529-8) Normal [facility] [id number] 09:47:12* Test Item Value Reference Range Interpretation Comme [facility] HCV Ab (test code = 86320-8) Negative HCV Semi-Quantitative (test code = 12046-2) 0.04 [facility] [id number] 09:47:12* Test Item Value Reference Range Interpretation Comme [facility] HCV Ab (test code = 29570-9) Negative HCV Semi-Quantitative (test code = 00527-8) 0.04 [facility] AG-AB WITH [id number] 06:05:30* Test Item Value Reference Range Interpretation Comme nts HIV Semi-quantitative (test code = 96681-9) 0.09 Negative COLLEEN (test code = COLLEEN) Non-reactive for HIV-1 antigen and HIV-1/HIV-2 antibodies. ?No laboratory evidence of HIV infection. ?Repeat in 2-4 weeks if acute HIV infection is suspected. [facility] 1/2 AG-AB WITH [id number] 06:05:30* Test Item Value Reference Range Interpretation Comme [facility] HIV Semi-quantitative (test code = 37915-6) 0.09 Negative COLLEEN (test code = COLLEEN) Non-reactive for HIV-1 antigen and HIV-1/HIV-2 antibodies. ?No laboratory evidence of HIV infection. ?Repeat in 2-4 weeks if acute HIV infection is suspected. [facility] with [id number] 09:58:00* Test Item Value Reference Range Interpretation [...] 31.6 g/dL 31.6-35.1 RDW-SD (test code = 38961-9) 42.4 fL 39-49.9 RDW-CV (test code = 788-0) 14.8 % 12-15.5 PLT (test code = 777-3) See_Comment [Automated message] The system which generated this result transmitted reference range: 166 - 358 10*3/?L. The reference range was not used to interpret this result as normal/abnormal. MPV (test code = 20775-6) 11.0 fL 9.5-12.9 NRBC/100 WBC (test code = 8789396964) See_Comment [Automated message] The system which generated this result transmitted reference range: 0.0 - 10.0 /100 WBCs. The reference range was not used to interpret this result as normal/abnormal. NRBC x10^3 (test code = 2263547682) <0.01 See_Comment [Automated message] The system which generated this result transmitted reference range: 10*3/?L. The reference range was not used to interpret this result as normal/abnormal. GRAN MAT (NEUT) % (test code = 770-8) 76.2 % IMM GRAN % (test code = 6972258626) 1.30 % LYMPH % (test code = 736-9) 13.2 % MONO % (test code = 5905-5) 8.2 % EOS % (test code = 713-8) 0.8 % BASO % (test code = 706-2) 0.3 % GRAN MAT x10^3(ANC) (test code = 2592757640) 13.18 10*3/uL 1.88-7.09 H IMM GRAN x10^3 (test code = 6844804300) 0.23 10*3/uL 0-0.06 H LYMPH x10^3 (test code = 731-0) 2.28 10*3/uL 1.32-3.29 MONO x10^3 (test code = 742-7) 1.42 10*3/uL 0.33-0.92 H EOS x10^3 (test code = 711-2) 0.13 10*3/uL 0.03-0.39 BASO x10^3 (test code = 704-7) 0.05 10*3/uL 0.01-0.07 Lab Interpretation (test code = 33207-4) Abnormal [facility] ONLY - [id number] 08:55:00* Test Item Value Reference Range Interpretation Comme nts RPR (Qualitative) (test code = 29586-1) Nonreactive Nonreactive Lab Interpretation (test cod e = 48866-3) Normal [facility] Irving[facility] (D) IMMUNE [id number] 06:27:46* Test Item Value Reference Range Interpretation Comme nts RHIG CANDIDATE? (test code = 5055) No- see comment Patient is not a candidate for RhIg- Patient is Rh Positive.Performed at [facility] Laboratory Services - [facility] Blood [address] [place] [address]Fefx Free: [phone] No. [id number] [facility] IrvingARTERIAL CORD [id number] 01:12:00* Test Item Value Reference Range Interpretation Comme nts BASE EXCESS, CORD (test code = 7794241295) mEq/L AC PH, CORD (BEAKER) (test code = 5281433017) 7.18-7.38 PC02, CORD (test code = 1043528506) See_Comment [Automated messa ge] The system which generated this result transmitted reference range: 32 - 66 mmHg. The reference range was not used to interpret this result as normal/abnormal. PO2, CORD (test code = 8112178955) See_Comment [Automated messa ge] The system which generated this result transmitted reference range: 10 - 30 mmHg. The reference range was not used to interpret this result as normal/abnormal. BICARBONATE, CORD (test code = 8685050103) See_Comment [Automated messa ge] The system which generated this result transmitted reference range: 17 - 27 mEq/L. The reference range was not used to interpret this result as normal/abnormal. [facility] IrvingVENOUS CORD [id number] 01:08:00* Test Item Value Reference Range Interpretation Comme nts VENOUS BASE EXCESS, CORD (test code = 1670873504) mEq/L VENOUS PH, CORD (test code = 5237895165) 7.25-7.45 VENOUS PC02, CORD (test code = 0054418315) See_Comment [Automated messa ge] The system which generated this result transmitted reference range: 27 - 49 mmHg. The reference range was not used to interpret this result as normal/abnormal. VENOUS PO2, CORD (test code = 6402528493) See_Comment [Automated me ssage] The system which generated this result transmitted reference range: 17 - 41 mmHg. The reference range was not used to interpret this result as normal/abnormal. VENOUS BICARBONATE, CORD (test code = 0999343402) See_Comment QUES [Automated message] The system which generated this result transmitted reference range: 12 - 29 mEq/L. The reference range was not used to interpret this result as normal/abnormal. [facility] IrvingHepatitis B Surface [id number] 16:14:00 * Test Item Value Reference Range Interpretation Comme nts HBsAg Semi-Quantitative (bebe t code = 5195-3) Negative Negative [facility] IrvingType and Screen - ONCE [id number] 12:25:45 * Test Item Value Reference Range Interpretation Comme nts ABO & RH (test code = 20) O Positive Performed at [facility] Laboratory [facility] Blood [address] [place], [place] [address]Vtgy Free: [phone] No. [id number] IAT (test code = 1185) Negative Performed at [facility] Laboratory Services - [facility] Blood [address] [place] [address]Aekl Free: [phone] No. [id number] [facility] Irving[facility] 1/2 AG-AB WITH [id number] 12:19:00* Test Item Value Reference Range Interpretation Comme nts HIV Semi-quantitative (test code = 09987-1) Negative Negative COLLEEN (test code = COLLEEN) Non-reactive for HIV-1 antigen and HIV-1/HIV-2 antibodies. ?No laboratory evidence of HIV infection. ?Repeat in 2-4 weeks if acute HIV infection is suspected. [facility] IrvingCBC with [id number] 11:28:00* Test Item Value Reference Range Interpretation [...] g/dL 31.6-35.1 L RDW-SD (test code = 82256-0) 41.6 fL 39-49.9 RDW-CV (test code = 788-0) 14.6 % 12-15.5 PLT (test code = 777-3) See_Comment [Automated message] The system which generated this result transmitted reference range: 166 - 358 10*3/?L. The reference range was not used to interpret this result as normal/abnormal. MPV (test code = 68863-5) 10.6 fL 9.5-12.9 NRBC/100 WBC (test code = 6605109564) See_Comment [Automated message] The system which generated this result transmitted reference range: 0.0 - 10.0 /100 WBCs. The reference range was not used to interpret this result as normal/abnormal. NRBC x10^3 (test code = 7421527817) <0.01 See_Comment [Automated message] The system which generated this result transmitted reference range: 10*3/?L. The reference range was not used to interpret this result as normal/abnormal. GRAN MAT (NEUT) % (test code = 770-8) 73.3 % IMM GRAN % (test code = 2184755740) 2.20 % LYMPH % (test code = 736-9) 15.2 % MONO % (test code = 5905-5) 7.6 % EOS % (test code = 713-8) 1.2 % BASO % (test code = 706-2) 0.5 % GRAN MAT x10^3(ANC) (test code = 2955758645) 12.36 10*3/uL 1.88-7.09 H IMM GRAN x10^3 (test code = 4456709840) 0.37 10*3/uL 0-0.06 H LYMPH x10^3 (test code = 731-0) 2.57 10*3/uL 1.32-3.29 MONO x10^3 (test code = 742-7) 1.28 10*3/uL 0.33-0.92 H EOS x10^3 (test code = 711-2) 0.20 10*3/uL 0.03-0.39 BASO x10^3 (test code = 704-7) 0.08 10*3/uL 0.01-0.07 H Lab Interpretation (test code = 55169-1) Abnormal [facility] IrvingCOVID-[facility] (ID NOW RAPID TESTING)2020-08-14 09:59:00* Test Item Value Reference Range Interpretation Comme nts SARS-CoV-2 Rapid ID NOW (test code = 14961-8) Not Detected Not Detected COLLEEN (test code = COLLEEN) ID NOW COVID-19 As say is an isothermal nucleic acid amplification test intended for the qualitative detection of nucleic acid from SARS-CoV-2 viral RNA in nasopharyngeal (CHANNEL ACCOUNT MANAGER) specimens. It is used under Emergency Use [...] clinically indicated. Lab Interpretation (test code = 59739-5) Normal [facility] ONLY - FERN [id number] 09:34:00* Test Item Value Reference Range Interpretation Comme nts Fern Test (test code = 2507329261) Positive [facility] IrvingFETAL NON-STRESS [id number] 19:55:33NST: cat 1, reactive/reassuring, no ctx, +accels, neg decls, moderate variability [facility] URINALYSIS W SPECIFIC [id number] 19:06:00* Test Item Value Reference Range Interpretation [...] POCT U APPEAR (test code = 3267) [facility] URINALYSIS W SPECIFIC [id number] 18:05:00* Test Item Value Reference Range Interpretation [...] POCT U APPEAR (test code = 3267) [facility] URINALYSIS W SPECIFIC [id number] 14:33:00* Test Item Value Reference Range Interpretation [...] POCT U APPEAR (test code = 3267) [facility] URINALYSIS W SPECIFIC [id number] 16:11:00* Test Item Value Reference Range Interpretation [...] POCT U APPEAR (test code = 3267) [facility] URINALYSIS W SPECIFIC [id number] 16:11:00* Test Item Value Reference Range Interpretation [...] POCT U APPEAR (test code = 3267) [facility] URINALYSIS W SPECIFIC [id number] 16:11:00* Test Item Value Reference Range Interpretation [...] POCT U APPEAR (test code = 3267) [facility] URINALYSIS W SPECIFIC [id number] 16:11:00* Test Item Value Reference Range Interpretation [...] POCT U APPEAR (test code = 3267) [facility] URINALYSIS W SPECIFIC [id number] 14:01:00* Test Item Value Reference Range Interpretation [...] POCT U APPEAR (test code = 3267) [facility] URINALYSIS W SPECIFIC [id number] 15:33:00* Test Item Value Reference Range Interpretation [...] POCT U APPEAR (test code = 3267) [facility] URINALYSIS W SPECIFIC [id number] 15:33:00* Test Item Value Reference Range Interpretation [...] POCT U APPEAR (test code = 3267) [facility] URINALYSIS W SPECIFIC [id number] 15:33:00* Test Item Value Reference Range Interpretation [...] POCT U APPEAR (test code = 3267) [facility] URINALYSIS W SPECIFIC [id number] 16:24:00* Test Item Value Reference Range Interpretation [...] POCT U APPEAR (test code = 3267) [facility] URINALYSIS W SPECIFIC [id number] 15:54:00* Test Item Value Reference Range Interpretation [...] POCT U APPEAR (test code = 3267) [facility] URINALYSIS W SPECIFIC [id number] 15:54:00* Test Item Value Reference Range Interpretation [...] POCT U APPEAR (test code = 3267) [facility] URINALYSIS W SPECIFIC [id number] 15:54:00* Test Item Value Reference Range Interpretation [...] POCT U APPEAR (test code = 3267) [facility] URINALYSIS W SPECIFIC [id number] 15:20:00* Test Item Value Reference Range Interpretation [...] POCT U APPEAR (test code = 3267) [facility] URINALYSIS W SPECIFIC [id number] 19:05:00* Test Item Value Reference Range Interpretation [...] POCT U APPEAR (test code = 3267) [facility] URINALYSIS W SPECIFIC [id number] 19:05:00* Test Item Value Reference Range Interpretation [...] POCT U APPEAR (test code = 3267) [facility] [id number] 14:49:00* Test Item Value Reference Range Interpretation Comme nts POCT PREG (test code = 1605) Positive On board controls acceptable with C Line (test code = 3574) Yes POCT PREG LOT # (test code = 3575) POCT PREG TEST DATE ( test code = 3576) [facility] W/O SPECIFIC [id number] 14:49:00* Test Item Value Reference Range Interpretation [...] = 3257) Neg Negative - Negati ve [facility] Notes Date/Time Note Provider Source 2024-11-19 01:31:07 Pt given printed and verbal discharge instructions regarding strep pharyngitis, encouraged hydration, Prescription x2 sent to pharmacy, x1 sent with patient Pt verbalized understanding of instructions, pt awake alert oriented, resp reg unlabored, skin w/d, color appropriate for race, moves all ext well,pt encouraged to follow up with pcp Advised to seek medical attention for new/prolonged/worsening of symptoms No adverse reaction to meds given in ER noted upon discharge Awake, alert oriented, resp reg unlabored, skin w/d, pt leaving ambulatory without assist, in no apparent distress, ENY Suh RN [facility] 2024-11-18 23:55:39 C/o sore throat, body aches, chest congestion, bilateral ear pain x2 days ENY Lynch RN [facility] 2024-04-03 08:53:31 Chief Complaint Patient presents with Contraception Follow up on control Juan Perez LVN T [facility] 2024-02-27 11:27:29 PATIENT IS IN ROOM: 15 PHQ questionnaire score: 0 NIMESH questionnaire score: 0 Not on File Patient agreed to STD testing today. Patient has complaints and concerns of vaginal dryness, pain with intercourse, and bleeding with intercourse. control: B/L tubal ligation LMP Dates from Last 1 Encounters: No data found for LMP No results found for: "PAP" [facility]
[2025-01-05] MEDS ORDERED: PANTOPRAZOLE 40 MG INJ ONE (07:59)
[2025-01-05] MEDS ORDERED: ONDANSETRON 4 MG/2 ML VIAL ONE ×2 (07:59→09:32)
[2025-01-05] MEDS ORDERED: MORPHINE 4 MG/ML SYR ONE (07:59)
[2025-01-05] MEDS ORDERED: NA CHLORIDE 0.9% 1,000 ML ONE (08:00)
[2025-01-05 08:30] LABS: Specific Gravity 1.023 (1.005-1.030)
[2025-01-05 08:32] LABS: Specific Gravity 1.023 (1.005-1.030); Sqamous Epithelial <5 /HPF (None Seen); Urine Bacteria None Seen /HPF (<20); Urine Bilirubin NEGATIVE (Negative); Urine Blood Trace (Negative); Urine Clarity Clear (Clear); Urine Color Light-Yellow (Yellow); Urine Culture Reflex Order NOT NEEDED; Urine Glucose NEGATIVE (Negative); Urine Ketones NEGATIVE (Negative); Urine Microscopic Reflex YN ORDER UMIC; Urine Mucus Slight /HPF (None Seen); Urine Nitrite NEGATIVE (Negative); Urine Protein NEGATIVE (Negative); Urine RBC <5 /HPF (None Seen); Urine Urobilinogen Normal (Normal); Urine WBC <5 /HPF (<5); Urine pH 6.5 (5.0-7.0)
[2025-01-05 08:36] LABS: Absolute Eosinophils 0.2 K/uL (0-0.5); Absolute Lymphocytes (CBC) 1.9 K/uL (0.7-4.9); Absolute Monocytes 0.7 K/uL (0.1-1.3); Absolute Neutrophil 7.3 K/uL (1.8-8.0); Basophils % 0.4 % (0-1.3); Eosinophils % 1.6 % (0-4.4); Hematocrit 40.1 % (36.0-45.0); Hemoglobin 13.4 g/dL (12.0-15.0); Lymphocytes % 18.3 % (15.3-44.8); MCH 29.4 pg (27.0-35.0); MCHC 33.6 g/dL (32.0-36.0); MCV 87.6 fL (80-100); MPV 8.3 fL (7.6-11.3); Monocytes % 7.1 % (3.3-12.3); Neutrophils % 72.6 % (41.7-73.7); Platelets 386 thou/uL (152-406); RBC Red Blood Cell Count 4.57 M/uL (3.86-4.86)
[2025-01-05 08:46] LABS: PT Prothrombin Time 11.7 SECONDS (10-13.0); PTT, Activated Partial Thromb 33.9 SECONDS (27.2-37.4); Protime INR 1.03
[2025-01-05] MEDS ORDERED: DICYCLOMINE HCL 10 MG CAP ONE (09:56)
[2025-01-05 09:58] LABS: Albumin 3.7 g/dL (3.4-5.0); Albumin/Globulin Ratio 0.9 (1.1-1.8); Alkaline Phosphatase 63 U/L (45-117); Anion Gap 7.6 mEq/L (5.0-15.0); BUN Blood Urea Nitrogen 16 mg/dL (7-18); Bicarbonate 26 mEq/L (21-32); Bilirubin Total 0.5 mg/dL (0.2-1.0); Globulin 4.1 g/dL (2.3-3.5); Glomerular Filtration Rate 112 ml/min (=/>90); Glucose Level 100 mg/dL (74-106); Lipase 40 U/L (13-75); Potassium 3.6 mEq/L (3.5-5.1); Protein, Total 7.8 g/dL (6.4-8.2); Sodium Level 139 mEq/L (136-145)
[2025-01-05 10:11] LABS: ALT/SGPT < 14 U/L (13-56); AST/SGOT < 10 U/L (15-37)
--- NOTE | 2025-01-05 10:31 | RAD REPORT ---
EXAMINATION: CT Abdomen Pelvis W Contrast CLINICAL INDICATION: Female, 29 years old. bloody diarrhea;Abd pain TECHNIQUE: CT abdomen and pelvis was performed, after the administration of IV contrast, as per [facility] protocol. Axial, sagittal and coronal reconstructions were obtained. One or more of the following dose reduction techniques were used: Automated exposure control, adjustment of the mA and k V according to patient size, and iterative reconstruction. Unless otherwise specified, incidental findings do not require dedicated imaging follow-up. COMPARISON: 06/24/2017 FINDINGS: LOWER CHEST: The visualized lung bases are clear. LIVER: Normal in size and contour. No focal lesion. BILIARY SYSTEM: No suspicious abnormalities. SPLEEN: Normal size. No focal lesion. PANCREAS: No mass, ductal dilation, or camille-pancreatic fluid. ADRENALS: Normal; no mass. KIDNEYS: Normal size and contour. No hydronephrosis. URINARY BLADDER: Unremarkable. GASTROINTESTINAL TRACT: No evidence of free air, bowel obstruction or abscess. Small volume free pel jazmyne fluid. APPENDIX: Normal appendix. LYMPH NODES: No lymphadenopathy. MUSCULOSKELETAL: No acute or suspicious osseous abnormality. ADDITIONAL FINDINGS: Presacral fat stranding, nonspecific. Enhancing heterogeneous right adnexal stru cture may represent a ruptured cyst or follicle. Dominant left 2.6 cm adnexal cyst decreased in size since prior exam. IMPRESSION: Presacral fat stranding, could relate to infectious or inflammatory proctitis. Probably physiologic adnexal lesions as above, with small volume free pelvic fluid.
--- NOTE | 2025-01-05 10:41 | EDPHYS ---
Physician Documentation [facility] Name: Maricel Nur Age: 29 yrs Sex: Female : 1995 Arrival Date: 01/05/2025 Time: 07:33 Bed 19 Private MD: ED Physician Anali Caceres HPI: 01/05 07:52 This 29 yrs old Female presents to ER via Ambulatory with complaints of Vomiting - sp3 blood, Bloody Stools. 07:52 29-year-old female with history of prior colitis, childhood palate and ENT surgeries, sp3 Efrain Wai syndrome, Stickler syndrome, anxiety now presents to the ED with chief complaint vomiting and diarrhea with bloody diarrhea and a few episodes of bloody emesis. No history of Crohn's disease or ulcerative colitis though she does states she has had "colitis" in the past. She also endorses crampy abdominal pain. She denies any fever, headache, neck pain, chest pain, shortness of breath, significant pain or syncope, bleeding elsewhere, rash, known sick contacts, travel history, or any other signs or symptoms on ROS at this time.. 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 - Infectious Disease History:: Denies. - Social history:: Smoking status: Patient denies any tobacco usage or history of. ROS: 07:54 Constitutional: Negative for fever, chills, and weight loss, Eyes: Negative for injury, sp3 pain, redness, and discharge, ENT: Negative for injury, pain, and discharge, Neck: Negative for injury, pain, and swelling, Cardiovascular: Negative for chest pain, palpitations, and edema, Respiratory: Negative for shortness of breath, cough, wheezing, and pleuritic chest pain, Back: Negative for injury and pain, MS/Extremity: Negative for injury and deformity, Skin: Negative for injury, rash, and discoloration, Neuro: Negative for headache, weakness, numbness, tingling, and seizure, Psych: Negative for depression, anxiety, suicide ideation, homicidal ideation, and hallucinations, Allergy/Immunology: Negative for hives, rash, and allergies, Endocrine: Negative for neck swelling, polydipsia, polyuria, polyphagia, and marked weight changes, 07:54 All other systems are negative, Exam: 07:54 Constitutional: This is a well developed, well nourished patient who is awake, alert, sp3 and in no acute distress. Head/Face: Normocephalic, atraumatic. Eyes: Pupils equal round and reactive to light, extra-ocular motions intact. Lids and lashes normal. Conjunctiva and sclera are non-icteric and not injected. Cornea within normal limits. Periorbital areas with no swelling, redness, or edema. Neck: Trachea midline, no thyromegaly or masses palpated, and no cervical lymphadenopathy. Supple, full range of motion without nuchal rigidity, or vertebral point tenderness. No Meningismus. Chest/axilla: Normal chest wall appearance and motion. Nontender with no deformity. No lesions are appreciated. Cardiovascular: Regular rate and rhythm with a normal S1 and S2. No gallops, murmurs, or rubs. Normal PMI, no JVD. No pulse deficits. Respiratory: Lungs have equal breath sounds bilaterally, clear to auscultation and percussion. No rales, rhonchi or wheezes noted. No increased work of breathing, no retractions or nasal flaring. Back: No spinal tenderness. No costovertebral tenderness. Full range of motion. Skin: Warm, dry with normal turgor. Normal color with no rashes, no lesions, and no evidence of cellulitis. MS/ Extremity: Pulses equal, no cyanosis. Neurovascular intact. Full, normal range of motion. Neuro: Awake and alert, GCS 15, oriented to person, place, time, and situation. Cranial nerves II-XII grossly intact. Motor strength 5/5 in all extremities. Sensory grossly intact. Cerebellar exam normal. Normal gait. Psych: Awake, alert, with orientation to person, place and time. Behavior, mood, and affect are within normal limits. 07:54 Abdomen/GI: Mild crampy abdominal pain without peritoneal signs, rebound or guarding., Vital Signs: 07:46 BP 113 / 80; Pulse 84; Resp 14; Temp 98.2(O); Pulse Ox 100% on R/A; Weight 58.97 kg; ss Height 5 ft. 5 in. ; Pain 6/10; 10:05 BP 115 / 82; Pulse 82; Resp 20; Pulse Ox 100% on R/A; hb 10:57 BP 118 / 78; Pulse 80; Resp 20; Temp 98; Pulse Ox 100% on R/A; hb 07:46 Body Mass Index 21.63 (58.97 kg, 165.1 cm) ss 07:46 Pain Scale: Adult ss MDM: 07:37 Medical Screening Exam initiated sp3 07:54 Data reviewed: vital signs, nurses notes, lab test result(s), radiologic studies. ED sp3 course: 29-year-old female with PMH above now presents to the ED with vomiting and diarrhea bloody in nature. Differential diagnosis includes colitis, other intra-abdominal inflammatory process, coagulopathy, infectious diarrhea/gastroenteritis, among others. Workup will include general labs, IV fluids, CT scan of the abdomen pelvis with IV contrast and general supportive care. Vital signs are normal including heart rate and blood pressure patient is not clinically in shock or hypotensive. Disposition pending workup and patient course.. 10:40 ED course: CT demonstrates mild proctitis otherwise normal exam. Labs are all within sp3 normal limits. Patient has not had any bloody vomiting or diarrhea in the ED. Will place on Cipro and Flagyl and have her follow-up with GI.. 01/05 07:46 Order name: CBC with Diff; Complete Time: 08:48 sp3 01/05 07:46 Order name: CMP; Complete Time: 10:28 sp3 01/05 07:46 Order name: Lipase; Complete Time: 10:28 sp3 01/05 07:46 Order name: Test, Urine; Complete Time: 08:48 sp3 01/05 07:46 Order name: Urinalysis w/ reflexes; Complete Time: 08:48 sp3 01/05 07:46 Order name: PT-INR; Complete Time: 09:54 sp3 01/05 07:46 Order name: Ptt, Activated; Complete Time: 09:54 sp3 01/05 07:46 Order name: Lactate w/ 2H reflex if indic.; Complete Time: 09:54 sp3 01/05 07:46 Order name: CT Abd/Pelvis - IV Contrast Only; Complete Time: 10:39 sp3 01/05 07:46 Order name: IV Saline Lock; Complete Time: 08:25 sp3 01/05 07:46 Order name: Labs collected and sent; Complete Time: 08:25 sp3 01/05 07:46 Order name: NPO; Complete Time: 07:58 sp3 Administered Medications: 08:25 Drug: Ondansetron IVP 4 mg IVP once; over 2 minutes Route: IVP; Site: right wrist; hb 11:02 Follow up: Response: No adverse reaction hb 08:25 Drug: morphine IVP or IV 4 mg IVP once over 4 mins Route: IVP; Infused Over: 4 mins; hb Site: right wrist; 11:02 Follow up: Response: No adverse reaction hb 08:25 Drug: NS 0.9% IV 1000 ml IV at 1 bolus Per protocol; to be given as a bolus over 60 hb minutes Route: IV; Rate: 1 bolus; Site: right wrist; 08:25 Drug: Pantoprazole IVP 40 mg IVP once Route: IVP; Site: right wrist; hb 10:57 Follow up: Response: No adverse reaction hb 09:40 Drug: Ondansetron IVP 4 mg IVP once; over 2 minutes Route: IVP; Site: right wrist; hb 10:57 Follow up: Response: No adverse reaction hb 10:12 Drug: Dicyclomine PO 20 mg PO once Route: PO; hb 10:57 Follow up: Response: No adverse reaction hb Disposition Summary: 01/05/25 10:41 Discharge Ordered Notes: Location: Home sp3 Condition: Stable sp3 Diagnosis - Proctitis, diarrhea sp3 Followup: sp3 - With: Milo Blancas MD - When: Upon discharge from the Emergency Department - Reason: Recheck today's complaints Discharge Instructions: - Discharge Summary Sheet sp3 - Proctitis sp3 Forms: - Work release form sp - Medication Reconciliation Form sp3 - Antibiotic Education sp3 - Prescription Opioid Use sp3 - Patient Portal Instructions sp3 - Leadership Thank You Letter sp3 Prescriptions: - Flagyl 500 mg Oral tablet - take 1 tablet ORAL route every 8 hours for 7 days; 21 tablet; Refills: 0, sp3 Product Selection Permitted - Cipro 500 mg Oral Tablet - take 1 tablet ORAL route every 12 hours for 7 days; 14 tablet; Refills: 0, sp3 Product Selection Permitted - Tramadol 50 mg Oral Tablet - take 1 tablet ORAL route every 8 hours as needed; 12 tablet; Refills: 0, sp3 Product Selection Permitted Signatures: Dispatcher [employer] EDMS Matilde Espinal RN RN Beverly Fischer RN RN hb Patel, Setul, MD MD sp3 Corrections: (The following items were deleted from the chart) 07:46 07:46 Abdomen Pelvis W [id number] ordered. EDMS EDMS
--- NOTE | 2025-01-05 10:41 | ER ---
Nurse's Notes [facility] Name: Maricel Nur Age: 29 yrs Sex: Female : 1995 Arrival Date: 01/05/2025 Time: 07:33 Bed 19 Private MD: Diagnosis: Proctitis, diarrhea Presentation: 01/05 07:39 Coronavirus screen: Client denies travel out of the [place] in the last 14 days. Ebola ss Screen: Patient denies exposure to infectious person. Patient denies travel to an Ebola-affected area in the 21 days before illness onset. Initial Sepsis Screen: Does the patient meet any 2 criteria? No. Patient's initial sepsis screen is negative. Does the patient have a suspected source of infection? No. Patient's initial sepsis screen is negative. Risk Assessment: Do you want to hurt yourself or someone else? Patient reports no desire to harm self or others. Onset of symptoms. 07:39 Acuity: ALEXANDER 3 ss 07:39 Method Of Arrival: Ambulatory ss 07:47 Chief complaint: Patient states: bloody emesis and bloody stool since yesterday. 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 - Infectious Disease History:: Denies. - Social history:: Smoking status: Patient denies any tobacco usage or history of. Screenin:26 [facility] ED Fall Risk Assessment (Adult) History of falling in the last 3 months, hb including since admission No falls in past 3 months (0 pts) Confusion or Disorientation No (0 pts) Intoxicated or Sedated No (0 pts) Impaired Gait No (0 pts) Mobility Assist Device Used No (0 pt) Altered Elimination No (0 pt) Score/Fall Risk Level 0 - 2 = Low Risk Oriented to surroundings, Maintained a safe environment, Educated pt \T\ family on fall prevention, incl call for assistance when getting out of bed. Abuse screen: Denies threats or abuse. Denies injuries from another. Nutritional screening: No deficits noted. Tuberculosis screening: No symptoms or risk factors identified. Assessment: 08:26 General: Appears in no apparent distress. Behavior is calm, cooperative. Pain: Pain hb currently is 7 out of 10 on a pain scale. Neuro: Level of Consciousness is awake, alert, obeys commands, Oriented to person, place, time, situation. Cardiovascular: Patient's skin is warm and dry. Rhythm is regular. Respiratory: Respiratory effort is even, unlabored, Respiratory pattern is regular, symmetrical. GI: Reports lower abdominal pain, upper abdominal pain, bloody stool, nausea, vomiting. : No signs and/or symptoms were reported regarding the genitourinary system. EENT: No signs and/or symptoms were reported regarding the EENT system. Derm: Skin is pink, warm \T\ dry. Musculoskeletal: No signs and/or symptoms reported regarding the musculoskeletal system. 10:05 Reassessment: Patient appears in no apparent distress at this time. Patient and/or hb family updated on plan of care and expected duration. Pain level reassessed. Patient is alert, oriented x 3, equal unlabored respirations, skin warm/dry/pink. 10:05 GI: Abdomen is flat. hb 10:59 Reassessment: Patient appears in no apparent distress at this time. Patient and/or hb family updated on plan of care and expected duration. Pain level reassessed. Patient is alert, oriented x 3, equal unlabored respirations, skin warm/dry/pink. Vital Signs: 07:46 BP 113 / 80; Pulse 84; Resp 14; Temp 98.2(O); Pulse Ox 100% on R/A; Weight 58.97 kg; ss Height 5 ft. 5 in. ; Pain 6/10; 10:05 BP 115 / 82; Pulse 82; Resp 20; Pulse Ox 100% on R/A; hb 10:57 BP 118 / 78; Pulse 80; Resp 20; Temp 98; Pulse Ox 100% on R/A; hb 07:46 Body Mass Index 21.63 (58.97 kg, 165.1 cm) ss 07:46 Pain Scale: Adult ss ED Course: 07:35 Patient arrived in ED. im 07:37 Anali Caceres MD is Attending Physician. sp3 07:39 Triage completed. ss 07:39 Arm band placed on right wrist. ss 08:17 Inserted saline lock: 22 gauge in right wrist, using aseptic technique. Blood hb collected. Flushed with 10 mL NS. 08:18 Initial lab(s) drawn, by me, sent to lab. Urine collected: clean catch specimen, clear. hb 08:25 CBC with Diff Sent. hb 08:25 CMP Sent. hb 08:25 Lipase Sent. hb 08:25 Test, Urine Sent. hb 08:25 Urinalysis w/ reflexes Sent. hb 08:28 Patient has correct armband on for positive identification. Provided Education on: use hb of call light, tests, result times. 09:12 Beverly Pena, RN is Primary Nurse. hb 09:33 CT Abd/Pelvis - IV Contrast Only In Process Unspecified. EDMS 10:41 Milo Blancas MD is Referral Physician. sp3 10:56 No provider procedures requiring assistance completed. IV discontinued, intact, hb bleeding controlled, No redness/swelling at site. Pressure dressing applied. Administered Medications: 08:25 Drug: Ondansetron IVP 4 mg IVP once; over 2 minutes Route: IVP; Site: right wrist; hb 11:02 Follow up: Response: No adverse reaction hb 08:25 Drug: morphine IVP or IV 4 mg IVP once over 4 mins Route: IVP; Infused Over: 4 mins; hb Site: right wrist; 11:02 Follow up: Response: No adverse reaction hb 08:25 Drug: NS 0.9% IV 1000 ml IV at 1 bolus Per protocol; to be given as a bolus over 60 hb minutes Route: IV; Rate: 1 bolus; Site: right wrist; 08:25 Drug: Pantoprazole IVP 40 mg IVP once Route: IVP; Site: right wrist; hb 10:57 Follow up: Response: No adverse reaction hb 09:40 Drug: Ondansetron IVP 4 mg IVP once; over 2 minutes Route: IVP; Site: right wrist; hb 10:57 Follow up: Response: No adverse reaction hb 10:12 Drug: Dicyclomine PO 20 mg PO once Route: PO; hb 10:57 Follow up: Response: No adverse reaction hb Medication: 08:26 VIS not applicable for this client. hb Outcome: 10:41 Discharge ordered by . sp3 10:56 Discharged to home ambulatory, hb 10:56 Condition: stable 10:56 Discharge instructions given to patient, Instructed on discharge instructions, follow up and referral plans. Demonstrated understanding of instructions, follow-up care, 11:05 Patient left the ED. Signatures: Dispatcher [employer] Matilde Loza RN RN Beverly Pena RN RN Anali Caceres MD MD sp3 Sakshi Trevino
[2025-01-05 11:19] VITALS: O2SAT 100
[2025-01-05 11:31] VITALS: BP 118/78; TEMP 98
== END 2025-01-05 11:05 | disposition home or self-care (01) ==
LOC: ER 07:33
DX: K62.89 Other specified diseases of anus and rectum (principal)
CPT/HCPCS: 85025; 81001; 36415; 81025; 85610; 83605; 85730; 83690; 80053; 74177; 96375; 96374; 99284; Q9967; J2470; J2405 ×2; J7030

== ENCOUNTER 2025-01-22 09:01 | Emergency (ER) | payer OTHER ==
--- OUTSIDE RECORDS SUMMARY | 2025-01-22 09:10 | XMS REPORT | Continuity of Care Document ---
Author Name Unknown Address [address] [place] [address] [facility] Address [address] [place] [address] Care Team Providers Care See Wheeler Name Role Phone Pcp, Patient Does Not Have A Primary Care Physic arvind ALANNAH IRWIN Attending Clinician Unavailable ALANNAH IRWIN Attending Clinician Unavailable Alannah Irwin NP Attending Clinician [phone] MD CAMILLE Attending Clinician Unavailab YAJAIRA Milton Attending Clinician UnavailELAN Izaguirre Attending Clinician Unavailable EDUARDO HENRY Attending Clinician Unavail able HAFSA SMART Attending Clinician Unavaila uday Provider, [facility]ending [facility] Shauna Hafsa Guadalupe CNM Attending Clinician [phone] Doctor Unassigned, [place] Attending Clinician U GIANNI Sanchez Attending Clinician Unavailab Gianni Ruiz Attending Clinician + [phone] Eduardo Kruse Attending Clinician + Edel Carballo MD Attending Clinician [phone] Verito Davis MD, Vonnie Attending Clinician + Juan Francisco Garcia MD Attending Clinician [phone] Lab, [facility] Attending Clinician Unavailable Ultrasound, [facility] Attending Clinician Unavaila uday Nogueira MD, Joanne Attending Clinician [phone] Olivier Jaramillo MD Attending Clinician [phone] Ange Weaver MD Attending Clinician [phone] Estela Esposito Attending Clinician Unavail able Amy Bartlett MD Attending Clinician [phone] Emma Francis Attending Clinician Unavailable Allan PEREZ, Last Burns Attending Clinician [phone] AMY BARTLETT Attending Clinician Unavailable AMY BARTLETT Attending Clinician Unavailable Faculty, Bonilla Latif Attending Clinician Unava ilable JUAN FRANCISCO GARCIA Admitting Clinician Unavailable Edel Carballo MD Admitting Clinician [phone] Juan Francisco Garcia MD Admitting Clinician [phone] Payers Payer Name Policy Type Policy Number Effective Date Expirati on Date Source [facility] MEDICAID [id number] 2020 00:00:00 [facility] [id number] 2024 00:00:00 ROBBIE EID [facility] [employer] [address] [employer] [employer] 94 ON 9 [id number] 2023 00:00:00 [place] [id number] 2019 00:00:00 Problems Condition Name Condition Details [...] degree relative Disease Active 11-15 00:00: 00 [facility] Family history of breast cancer in first degree relative Family history of breast cancer in first degree relative Disease Active 11-15 00:00: 00 [facility] S/P tubal ligation S/P tubal ligation Disease Active 2019-10 00:00: 00 [facility] Anemia of mother in , antepartum Anemia of mother in , antepartum Disease Active 2019-10 0-19 00:00: 00 [facility] epistaxis epistaxis Disease Active 0 7-14 00:00: 00 [facility] Generalize d anxiety disorder Generalize d anxiety disorder Disease Active 0 4-03 00:00: 00 [facility] Major depressive disorder Major depressive disorder Disease Active 4-03 00:00: 00 [facility] Nausea and vomiting during Nausea and vomiting during Disease Active 4-03 00:00: 00 [facility] Stickler's syndrome Stickler's syndrome Disease Active 7-09 00:00: 00 [facility] Bleeding after intercours e Bleeding after intercours e Disease Resolve d 1- 00:00: 00 2023-01-11 00:00:00 2023-01-11 11:23:28 [facility] ROM (rupture of membranes) , premature ROM (rupture of membranes) , premature Disease Resolve d 2019-10 0-30 00:00: 00 2022-11-15 00:00:00 2022-11-15 09:06:23 [facility] Obesity (BMI 30-39.9) Obesity (BMI 30-39.9) Disease Resolve d 2019-10 0-30 00:00: 00 2022-11-15 00:00:00 2022-11-15 09:06:19 [facility] Anemia of mother in , antepartum Anemia of mother in , antepartum Disease Resolve d 2019-10 0-19 00:00: 00 2022-11-15 00:00:00 2022-11-15 09:06:08 [facility] Heartburn in Heartburn in Disease Resolve d 2019-0 9-11 00:00: 00 2022-11-15 00:00:00 2022-11-15 09:06:11 [facility] epistaxis epistaxis Disease Resolve d 0 7-14 00:00: 00 2022-11-15 00:00:00 2022-11-15 09:06:21 [facility] Supervisio n of high-risk Supervisio n of high-risk Disease Resolve d 2019-0 5-18 00:00: 00 2022-11-15 00:00:00 2022-11-15 09:06:30 [facility] Multiparit y Multiparit y Disease Resolve d 2019-0 5-18 00:00: 00 2022-11-15 00:00:00 2022-11-15 09:06:16 [facility] History of miscarriag e History of miscarriag e Disease Resolve d 2019-0 5-18 00:00: 00 2022-11-15 00:00:00 2022-11-15 09:06:14 [facility] Nausea and vomiting during Nausea and vomiting during Disease Resolve d 2019- 4-03 00:00: 00 2022-11-15 00:00:00 2022-11-15 09:06:17 [facility] Depression during Depression during Disease Resolve d 2019-0 4-03 00:00: 00 2022-11-15 00:00:00 2022-11-15 09:06:09 [facility] Rubella non-immune status, antepartum Rubella non-immune status, antepartum Disease Resolve d 2019-0 3-20 00:00: 00 2022-11-15 00:00:00 2022-11-15 09:06:24 Overview: Formattin g of this note might be different from the original. Address pp [facility] (spontaneo us vaginal delivery) (spontaneo us vaginal delivery) Disease Resolve d 2018-0 3-01 00:00: 00 2022-11-15 00:00:00 2022-11-15 09:06:31 [facility] Single live Single live Disease Resolve d 2018-0 3-01 00:00: 00 2022-11-15 00:00:00 2022-11-15 09:06:27 [facility] 38 weeks gestation of 38 weeks gestation of Disease Resolve d 2017-1 2-29 00:00: 00 2022-11-15 00:00:00 2022-11-15 09:06:07 [facility] History of cleft palate History of cleft palate Disease Resolve d 7- 00:00: 00 2022-11-15 00:00:00 2022-11-15 09:06:13 Overview: Formattin g of this note might be different from the original. Repaired [facility] Supervisio n of high-risk Supervisio n of high-risk Disease Resolve d 01-01 00:00: 00 2020-01-17 00:00:00 2020-01-17 14:27:25 [facility] Efrain Wai's syndrome Efrain Wai's syndrome Disease Resolve d 7- 00:00: 00 2020-01-17 00:00:00 2020-01-17 14:27:20 [facility] Pain pelvic Pain pelvic Disease Resolve d 7- 00:00: 00 2020-01-17 00:00:00 2020-01-17 14:27:14 [facility] Dysmenorrh ea Dysmenorrh ea Disease Resolve d 6-24 00:00: 00 2020-01-17 00:00:00 2020-01-17 14:27:13 [facility] Contracept kelle management Contracept kelle management Disease Resolve d 4-16 00:00: 00 2020-01-02 00:00:00 2020-01-02 10:12:35 [facility] Rubella non-immune status, antepartum Rubella non-immune status, antepartum Disease Resolve d 7- 00:00: 00 2020-01-02 00:00:00 2020-01-02 10:13:38 Overview: Address pp [facility] Routine follow-up Routine follow-up Disease Resolve d 01-07 00:00: 00 2019-01-29 00:00:00 2019-01-29 11:05:41 [facility] Labor and delivery, indication for care Labor and delivery, indication for care Disease Resolve d 3- 00:00: 00 2019-01-07 00:00:2019-01-07 10:34:15 [facility] Premature uterine contractio ns Premature uterine contractio ns Disease Resolve d 2018-0 2-28 00:00: 00 2019-01-07 00:00:00 2019-01-07 10:33:57 [facility] H/O maternal Chlamydia infection, currently , third trimester H/O maternal Chlamydia infection, currently , third trimester Disease Resolve d 2018- 2-07 00:00: 00 2019-01-07 00:00:00 2019-01-07 10:34:08 [facility] Supervisio n of high-risk Supervisio n of high-risk Disease Resolve d - 00:00: 00 2019-01-07 00:00:00 2019-01-07 10:34:24 [facility] History of miscarriag e History of miscarriag e Disease Resolve d 7-09 00:00: 00 2019-01-07 00:00:00 2019-01-07 10:34:14 [facility] Threatened labor, third trimester Threatened labor, third trimester Disease Resolve d 2017-10 2-29 00:00: 00 2018-12-10 00:00:00 2018-12-10 00:59:37 [facility] Vaginal bleeding in , first trimester Vaginal bleeding in , first trimester Disease Resolve d 9-12 00:00: 00 2018-12-10 00:00:00 2018-12-10 01:00:13 [facility] Chlamydia infection affecting Chlamydia infection affecting Disease Resolve d 7-10 00:00: 00 2018-12-10 00:00:00 2018-12-10 01:00:04 [facility] History of maternal Chlamydia infection, currently , third trimester History of maternal Chlamydia infection, currently , third trimester Disease Resolve d 7-09 00:00: 00 2018-12-10 00:00:00 2018-12-10 00:59:57 [facility] Contracept kelle management Contracept kelle management Disease Resolve d 2014-10 1-15 00:00: 00 2018-04-23 00:00:00 2018-04-23 15:28:44 [facility] Leukorrhea , not specified as infective Leukorrhea , not specified as infective Disease Resolve d 04-27 00:00: 00 2017-10-27 00:00:00 2017-10-27 13:29:56 [facility] Well woman exam Well woman exam Disease Resolve d 04-08 00:00: 00 2017-10-27 00:00:00 2017-10-27 13:30:00 [facility] Pain pelvic Pain pelvic Disease Resolve d 04-08 00:00: 00 2017-04-27 00:00:00 2017-04-27 15:37:14 [facility] Breast pain, left Breast pain, left Disease Resolve d 2014-10 00:00: 00 2016-04-08 00:00:00 2016-04-08 15:51:55 [facility] History of spontaneou s History of spontaneou s Disease Resolve d 2014-10 00:00: 00 2016-04-08 00:00:00 2022-05-01 00:38:07 [facility] Underweigh t Underweigh t Disease Resolve d 11-21 00:00: 00 2016-04-08 00:00:00 2016-04-08 15:52:12 [facility] Simple ovarian cyst Simple ovarian cyst Disease Resolve d 07-10 00:00: 00 2015-08-30 00:00:00 2015-08-30 13:34:36 [facility] Abdominal pain, other specified site Abdominal pain, other specified site Disease Resolve d 3- 00:00: 00 2015-08-30 00:00:00 2015-08-30 13:34:31 [facility] Urinary tract infection, site not specified Urinary tract infection, site not specified Disease Resolve d 3- 00:00: 00 2015-08-03 00:00:00 2015-08-03 11:04:23 [facility] Surveillan ce of previously prescribed contracept kelle pill Surveillan ce of previously prescribed contracept kelle pill Disease Resolve d 2015-11-21 00:00: 00 2015-08-03 00:00:00 2015-08-03 11:04:05 [facility] Encounter for routine gynecologi kavon examinatio n Encounter for routine gynecologi kavon examinatio n Disease Resolve d 11-21 00:00: 00 2015-08-03 00:00:00 2022-05-01 00:34:25 [facility] Need for HPV vaccinatio n Need for HPV vaccinatio n Disease Resolve d 11-21 00:00: 00 2015-08-03 00:00:00 2015-08-03 11:04:14 [facility] Retinoschi sis, Macular Retinoschi sis, Macular Disease Resolve d 05-06 00:00: 00 2014-11-21 00:00:00 2014-11-21 16:12:44 [facility] Cataract, Right Eye Cataract, Right Eye Disease Resolve d 05-06 00:00: 00 2014-11-21 00:00:00 2014-11-21 16:12:42 [facility] Allergies, Adverse Reactions, Alerts Allergy Name Allergy Type Status Severity Reaction(s) Onset Date Inactive Date Treating Clinician Comments Source Cefprozi l Monohydr ate Propensi ty to adverse reaction s Active Hives 12-12 00:00: 00 Jing Chiang - Externa l CEFPROZI L DRUG INGREDI Active Hives 12-12 00:00: 00 [facility] Cefprozi l Propensi ty to adverse reaction s Active Hives 12-12 00:00: 00 [facility] Social History Social Habit Start Date Stop Date Quantity Comments Source ASSERTION 2019-12-06 00:00:00 [facility] Sexual orientation Hakan Chiang - External Alcoholic beverage intake 2024-11-19 00:00:00 2024-11-19 00:00:00 .14 /d [facility] History of Social function 2024-02-27 00:00:00 2024-02-27 00:00:00 Jing Chiang - External Alcohol Comment 2024-02-27 00:00:00 2024-02-27 00:00:00 social drinker Jing Chiang - External Exposure to SARS-CoV-2 (event) 2022-12-31 00:00:00 2023-01-10 14:55:00 Not sure [facility] Tobacco use and exposure 2022-11-15 00:00:00 2022-11-15 00:00:00 Smokeless tobacco non-user [facility] Alcohol intake 2022-11-15 00:00:00 2022-11-15 00:00:00 .14 /d [facility] Education 2020-08-14 00:00:00 2020-08-14 00:00:00 11 [facility] History SDOH Financial 2020-08-14 00:00:00 2020-08-14 00:00:00 4 [facility] Sex assigned at 1995 00:00:00 1995 00:00:00 Jing Chiang - External Smoking Status Start Date Stop Date Source Never smoked tobacco [facility] Medications Ordered Medication Name Filled Medication Name Start Date Stop Date Current Medication? Ordering Clinician Indication Dosage Frequency Signature (SIG) Comments Components Source methylPREDN ISolone 4 mg tablets 11-20 00:00: 00 Yes [id number] Take by mouth SEE-INSTRU CTIONS. follow package directions [facility] dexamethaso ne (DECADRON PHOSPHATE) 4 mg/mL injection 4 mg 11-19 07:45: 00 11-19 06:51 :00 No 4mg 4 mg, Intramuscu lar, ONCE, 1 dose, On Mon11/19/24 at 0145, Routine [facility] penicillin g benzathine (BICILLIN L-A) injection 1.2 Million Units 11-19 07:00: 00 11-19 06:56 :00 No 1.210 1.2 Million Units, Intramuscu lar, ONCE, 1 dose, On Mon11/19/24 at 0100, VEENA, Reason for Anti-Infec tive: Documented Infection, Documented Infection Site: HEENT, Duration of Therapy: Once (ED) [facility] ketorolac 10 mg tablet 2025-0 2-04 00:00: 00 Yes [id number] 10mg Take 1 tablet by mouth every 6 (six) hours as needed for Pain (scale 4-6), Pain (scale 1-3) or Pain (scale 7-10). [facility] maalox-lido nancy 2% viscous 1:1 Susp suspension 2-04 00:00: 00 Yes [id number] 10mL Take 10 mL by mouth as needed (gargle and swallow). [facility] Norethin Ponce-Eth Estrad-FE 1-20 MG-MCG(24) oral Tablet 04-03 00:00: 00 Yes [id number] 1{tbl} Take 1 tablet by mouth daily Refill q72 days, continuous use skip placebo. Jing cabrera Norethin Ponce-Eth Estrad-FE 1-20 MG-MCG(24) oral Tablet 02-26 00:00: 00 04-03 00:00 :00 No [id number] 1{tbl} Take 1 tablet by mouth daily. Jing cabrera Doxycycline Hyclate 100 MG oral Tablet 02-26 00:00: 00 03-13 04:59 :00 No [id number] 100mg Take 1 tablet (100 mg total) by mouth 2 times daily for 14 days. Jing cabrera Metronidazo le (Flagyl) 500 MG oral Tablet 02-26 00:00: 00 03-13 04:59 :00 No [id number] 500mg Take 1 tablet (500 mg total) by mouth 2 times daily for 14 days No alcohol while on this medication . Jing cabrera metroNIDAZO LE 500 mg tablet 11-17 00:00: 00 11-25 05:59 :00 No [id number] 500mg Take 1 tablet by mouth in the morning and 1 tablet in the evening. Do all this for 7 days. [facility] PARoxetine 40 mg tablet 1-31 08:46: 56 Yes [id number] 40mg Take 40 mg by mouth in the morning. [facility] amoxicillin 500 mg capsule 10-26 00:00: 00 11-15 00:00 :00 No 1{capsu le} Take 1 capsule by mouth in the morning. [facility] acetaminoph en 325 mg tablet 2019-10 00:00: 00 11-15 00:00 :00 No [id number] 650mg Take 2 tablets by mouth every 6 (six) hours as needed for Pain (scale 1-3). [facility] docusate calcium 240 mg capsule 2019-10 00:00: 00 11-15 00:00 :00 No [id number] 240mg Take 1 capsule by mouth once daily as needed for Constipati on. [facility] vitamin w/FA tablet 2019-10 00:00: 00 11-15 00:00 :00 No [id number] 1{tbl} Take 1 tablet by mouth daily. [facility] ibuprofen 600 mg tablet 2019-10 00:00: 11-15 00:00 :00 No [id number] 600mg Take 1 tablet by mouth every 6 (six) hours as needed for Pain (scale 4-6). [facility] measles, mumps + rubella vac (M-M-R II) 1,000-12,50 0 TCID50/0.5 mL injection 0.5 mL 2019-10 18:00: 00 08-16 16:57 :00 No .5mL 0.5 mL, Subcutaneo us, ONCE, 1 dose, 08/16/20 at 1200, Routine [facility] docusate calcium 240 mg capsule 2019-10 00:00: 00 Yes [id number] 240mg Take 1 capsule by mouth once daily as needed for Constipati on. [facility] ibuprofen 600 mg tablet 2019-10 00:00: 00 Yes [id number] 600mg Take 1 tablet by mouth every 6 (six) hours as needed for Pain (scale 4-6). [facility] vitamin w/FA tablet 2019-10 00:00: 00 Yes [id number] 1{tbl} Take 1 tablet by mouth daily. [facility] ferrous sulfate 325 mg (65 mg iron) tablet 2019-10 00:00: 00 11-15 00:00 :00 No [id number] 325mg Take 1 tablet by mouth 2 (two) times daily. [facility] acetaminoph en 325 mg tablet 2019-10 00:00: 00 08-17 04:59 :00 No [id number] 650mg Take 2 tablets by mouth every 6 (six) hours as needed for Pain (scale 1-3). [facility] measles, mumps + rubella vac 1,000-12,50 0 TCID50/0.5 mL injection 2019-10 00:00: 00 08-17 05:59 :00 No [id number] .5mL inject 0.5 mL under the skin once now for 1 dose. [facility] HYDROcodone -acetaminop hen (NORCO 5) 5-325 mg tablet 2 tablet 2019-10 14:50: 03 Yes 2{tbl} 2 tablet, Oral, Q6HPRN, Starting 08/15/20 at 0950, Until Discontinu ed, Routine, Pain (scale 7-10) [facility] lactated ringers IV infusion 2019-10 13:42: 00 08-15 23:29 :23 No IV Infusion, CONTINUOUS PRN, Starting 08/15/20 at 0842, Until Discontinu ed, Routine, Intra-op [facility] sodium citrate-cit lana acid (BICITRA) 500-334 mg/5 mL solution 30 mL 2019-10 13:15: 00 08-15 13:32 :00 No 30mL 30 mL, Oral, ONCE, 1 dose, 08/15/20 at 0830, Routine [facility] rho(D) immune globulin (RHOGAM) syringe 300 mcg 2019-10 03:12: 24 Yes 300ug 300 mcg, Intramuscu lar, ONCE, For 1 dose, Conditiona l, Routine [facility] ibuprofen (IBU) tablet 600 mg 2019-10 03:12: 19 Yes 600mg 600 mg, Oral, Q6HPRN, Starting Fri 30/20 at 2211, Until Discontinu ed, Routine, Pain (scale 4-6) [facility] diphenhydrA MINE-0.9 % sod.chlr (BENADRYL) 25 mg/50 mL piggyback 25 mg 2019-10 03:12: 19 Yes 25mg 25 mg, IV Piggyback, Q6HPRN, Starting Mon08/14/20 at 2211, Until Discontinu ed, 50 mL [facility] ondansetron (ZOFRAN (PF)) injection 4 mg 2019-10 03:12: 19 Yes 4mg 4 mg, Slow IV Push, Q8HPRN, Starting Mon08/14/20 at 2211, Until Discontinu ed, Routine, Nausea and Vomiting (N/V) [facility] simethicone (GAS RELIEF (SIMETHICON E)) chewable tablet 160 mg 2019-10 03:12: 19 Yes 160mg 160 mg, Oral, PC+HSPRN, Starting Mon08/14/20 at 2211, Until Discontinu ed, Routine, Gas [facility] docusate calcium (SURFAK) capsule 240 mg 2019-10 03:12: 19 Yes 240mg 240 mg, Oral, QDAILYPRN, Starting Mon08/14/20 at 2211, Until Discontinu ed, Routine, Constipati on [facility] magnesium hydroxide (MILK OF MAGNESIA) 400 mg/5 mL suspension 30 mL 2019-10 03:12: 19 Yes 30mL 30 mL, Oral, QDAILYPRN, Starting Mon08/14/20 at 2211, Until Discontinu ed, Routine, Constipati on [facility] acetaminoph en (TYLENOL) tablet 650 mg 2019-10 03:12: 18 Yes 650mg 650 mg, Oral, Q6HPRN, Starting Mon08/14/20 at 2211, Until Discontinu ed, Routine, Pain (scale 1-3) [facility] diphenhydrA MINE (BENADRYL) tablet 25 mg 2019-10 03:12: 18 Yes 25mg 25 mg, Oral, Q6HPRN, Starting Mon08/14/20 at 2212, Until Discontinu ed, Routine, Sleep, Itching [facility] benzocaine- menthol (DERMOPLAST ) 20-0.5 % topical spray 2019-10 03:12: 18 Yes Topical, PRN, Starting Mon08/14/20 at 2212, Until Discontinu ed, Routine, Perineum discomfort [facility] diphenhydrA MINE (BENADRYL) injection 25 mg 2019-10 23:30: 00 08-14 23:38 :00 No 25mg 25 mg, Slow IV Push, ONCE, 1 dose, Mon08/14/20 at 1845, Routine [facility] sodium citrate-cit lana acid (BICITRA) 500-334 mg/5 mL solution 30 mL 2019-10 17:55: 09 08-14 18:31 :00 No 30mL 30 mL, Oral, PRE-PROCED URE ONCE, 1 dose, Starting Mon08/14/20 at 1255, Until Mon08/14/20 at 1331, Routine, Surgery/Pr ocedure [facility] lactated ringers IV infusion 500 mL 2019-10 17:55: 09 08-14 18:31 :00 No 500mL at 999 mL/hr, 500 mL, IV Infusion, PRN - SEE INSTRUCTIO NS, 1 dose, Starting Mon08/14/20 at 1255, Until Mon08/14/20 at 1331, Routine [facility] terbutaline (BRETHINE) injection 0.25 mg 2019-10 13:09: 00 08-14 13:11 :00 No .25mg 0.25 mg, Subcutaneo us, ONCE, 1 dose, Mon08/14/20 at 0815, Routine [facility] D5W-LR IV infusion 1,000 mL 2019-10 10:00: 00 08-15 03:12 :25 No 1000mL at 125 mL/hr, IV Infusion, CONTINUOUS , Starting Mon08/14/20 at 0500, Until Mon08/14/20 at 2212, Routine [facility] proMETHazin e (PHENERGAN) 25 mg in NaCl 0.9% (NS) 50 mL piggyback 2019-10 09:58: 29 08-15 03:12 :25 No 25mg 25 mg, IV Piggyback, Q4HPRN, Starting Mon08/14/20 at 0458, Until Mon08/14/20 at 2212, 50 mL [facility] FENTanyl PF (SUBLIMAZE (PF)) injection 100 mcg 2019-10 09:58: 14 08-15 03:12 :25 No 100ug 100 mcg, Slow IV Push, Q1HPRN, Starting Mon08/14/20 at 0458, Until Mon08/14/20 at 221, Routine, Pain (scale 4-6), Pain (scale 7-10) [facility] LR 1000 mL + oxytocin 20 units IV Solution 2019-10 09:45: 00 08-15 03:12 :25 No 2mU/min at 6-120 mL/hr, IV Infusion, TITRATE, Starting Mon08/14/20 at 0445, Until Mon08/14/20 at 2212, VEENA [facility] ascorbic acid, vitamin C, 500 mg tablet 2019-10 00:00: 00 08-16 00:00 :00 No [id number] 500mg Take 1 tablet by mouth 3 (three) times daily. [facility] ferrous sulfate 325 mg (65 mg iron) tablet 2019-10 00:00: 00 08-16 00:00 :00 No [id number] 325mg Take 1 tablet by mouth 2 (two) times daily. [facility] SERTraline (ZOLOFT) 50 mg tablet 4-06 00:00: 00 11-15 00:00 :00 No [id number] 50mg Take 1 tablet by mouth daily. [facility] proMETHazin e 25 mg tablet -19 00:00: 00 08-16 00:00 :00 No [id number] 25mg Take 1 tablet by mouth every 6 (six) hours as needed for Nausea and Vomiting (N/V). [facility] No known medications No Un clayton [facility] Immunizations Ordered Immunization Name Filled Immunization Name Date Status Comments Source SARS-COV-2 COVID-19 VACCINE - (MODERNA) 2021-04-14 00:00:00 Completed [facility] SARS-COV-2 COVID-19 VACCINE - (MODERNA) 2021-04-14 00:00:00 Completed [facility] SARS-COV-2 COVID-19 VACCINE - (MODERNA) 2021-04-14 00:00:00 Completed [facility] SARS-COV-2 COVID-19 VACCINE - (MODERNA) 2021-04-14 00:00:00 Completed [facility] SARS-COV-2 COVID-19 VACCINE - (MODERNA) 2021-04-14 00:00:00 Completed SARS-COV-2 COVID-19 VACCINE - (MODERNA) 2021-03-17 00:00:00 Completed [facility] SARS-COV-2 COVID-19 VACCINE - (MODERNA) 2021-03-17 00:00:00 Completed [facility] SARS-COV-2 COVID-19 VACCINE - (MODERNA) 2021-03-17 00:00:00 Completed [facility] SARS-COV-2 COVID-19 VACCINE - (MODERNA) 2021-03-17 00:00:00 Completed [facility] SARS-COV-2 COVID-19 VACCINE - (MODERNA) 2021-03-17 00:00:00 Completed MMR 2020-08-16 00:00:00 Completed [facility] MMR 2020-08-16 00:00:00 Completed [facility] MMR 2020-08-16 00:00:00 Completed [facility] MMR 2020-08-16 00:00:00 Completed [facility] MMR 2020-08-16 00:00:00 Completed [facility] MMR 2020-08-16 00:00:00 Completed [facility] MMR 2020-08-16 00:00:00 Completed [facility] MMR 2020-08-16 00:00:00 Completed [facility] MMR 2020-08-16 00:00:00 Completed [facility] Influenza Virus Vaccine Quad .5 mL IM 6+ MO 2020-01-02 00:00:00 Completed [facility] Influenza Virus Vaccine Quad .5 mL IM 6+ MO 2020-01-02 00:00:00 Completed [facility] Influenza Virus Vaccine Quad .5 mL IM 6+ MO 2020-01-02 00:00:00 Completed [facility] Influenza Virus Vaccine Quad .5 mL IM 6+ MO 2020-01-02 00:00:00 Completed [facility] Influenza Virus Vaccine Quad .5 mL IM 6+ MO 2020-01-02 00:00:00 Completed [facility] Influenza Virus Vaccine Quad .5 mL IM 6+ MO 2020-01-02 00:00:00 Completed [facility] Influenza Virus Vaccine Quad .5 mL IM 6+ MO 2020-01-02 00:00:00 Completed [facility] Influenza Virus Vaccine Quad .5 mL IM 6+ MO 2020-01-02 00:00:00 Completed [facility] Influenza Virus Vaccine Quad .5 mL IM 6+ MO 2020-01-02 00:00:00 Completed [facility] Influenza Virus Vaccine Quad .5 mL IM 6+ MO 2020-01-02 00:00:00 Completed [facility] Influenza Virus Vaccine Quad .5 mL IM 6+ MO 2020-01-02 00:00:00 Completed [facility] Influenza Virus Vaccine Quad .5 mL IM 6+ MO 2020-01-02 00:00:00 Completed [facility] Influenza Virus Vaccine Quad .5 mL IM 6+ MO 2020-01-02 00:00:00 Completed [facility] Influenza Virus Vaccine Quad .5 mL IM 6+ MO 2020-01-02 00:00:00 Completed [facility] Influenza Virus Vaccine Quad .5 mL IM 6+ MO 2020-01-02 00:00:00 Completed [facility] Influenza Virus Vaccine Quad .5 mL IM 6+ MO 2020-01-02 00:00:00 Completed [facility] Influenza Virus Vaccine Quad .5 mL IM 6+ MO 2020-01-02 00:00:00 Completed [facility] Influenza Virus Vaccine Quad .5 mL IM 6+ MO 2020-01-02 00:00:00 Completed [facility] Influenza Virus Vaccine Quad .5 mL IM 6+ MO 2020-01-02 00:00:00 Completed [facility] Influenza Virus Vaccine Quad .5 mL IM 6+ MO 2020-01-02 00:00:00 Completed [facility] Influenza Virus Vaccine Quad .5 mL IM 6+ MO (FLUZONE/FLULAVAL/F LUARIX) 2020-01-02 00:00:00 Completed [facility] Influenza Virus Vaccine Quad .5 mL IM 6+ MO 2020-01-02 00:00:00 Completed [facility] Influenza Virus Vaccine Quad .5 mL IM 6+ MO 2020-01-02 00:00:00 Completed [facility] Influenza Virus Vaccine Quad .5 mL IM 6+ MO 2020-01-02 00:00:00 Completed [facility] Influenza Virus Vaccine Quad .5 mL IM 6+ MO 2020-01-02 00:00:00 Completed [facility] Influenza Virus Vaccine Quad .5 mL IM 6+ MO 2020-01-02 00:00:00 Completed [facility] Influenza Virus Vaccine Quad .5 mL IM 6+ MO 2020-01-02 00:00:00 Completed [facility] Influenza Virus Vaccine Quad .5 mL IM 6+ MO 2020-01-02 00:00:00 Completed [facility] Influenza Virus Vaccine Quad .5 mL IM 6+ MO 2020-01-02 00:00:00 Completed [facility] Influenza Virus Vaccine Quad .5 mL IM 6+ MO 2020-01-02 00:00:00 Completed [facility] Influenza Virus Vaccine Quad .5 mL IM 6+ MO 2020-01-02 00:00:00 Completed [facility] Influenza Virus Vaccine Quad .5 mL IM 6+ MO 2020-01-02 00:00:00 Completed [facility] Influenza Virus Vaccine Quad .5 mL IM 6+ MO 2020-01-02 00:00:00 Completed [facility] Influenza Virus Vaccine Quad .5 mL IM 6+ MO 2020-01-02 00:00:00 Completed [facility] Influenza Virus Vaccine Quad .5 mL IM 6+ MO 2020-01-02 00:00:00 Completed [facility] Influenza Virus Vaccine Quad .5 mL IM 6+ MO 2020-01-02 00:00:00 Completed [facility] Influenza Virus Vaccine Quad .5 mL IM 6+ MO 2020-01-02 00:00:00 Completed [facility] Influenza Virus Vaccine Quad .5 mL IM 6+ MO 2020-01-02 00:00:00 Completed [facility] Influenza Virus Vaccine Quad .5 mL IM 6+ MO 2020-01-02 00:00:00 Completed [facility] Influenza Virus Vaccine Quad .5 mL IM 6+ MO 2020-01-02 00:00:00 Completed [facility] Influenza Virus Vaccine Quad .5 mL IM 6+ MO 2020-01-02 00:00:00 Completed [facility] Influenza Virus Vaccine Quad .5 mL IM 6+ MO 2020-01-02 00:00:00 Completed [facility] Tdap 2018-10-18 00:00:00 Completed [facility] TDAP 2018-10-18 00:00:00 Completed [facility] TDAP 2018-10-18 00:00:00 Completed [facility] TDAP 2018-10-18 00:00:00 Completed [facility] TDAP 2018-10-18 00:00:00 Completed [facility] TDAP 2018-10-18 00:00:00 Completed [facility] TDAP 2018-10-18 00:00:00 Completed [facility] Tdap 2018-10-18 00:00:00 Completed [facility] Tdap 2018-10-18 00:00:00 Completed [facility] Tdap 2018-10-18 00:00:00 Completed [facility] Tdap 2018-10-18 00:00:00 Completed [facility] Tdap 2018-10-18 00:00:00 Completed [facility] Tdap 2018-10-18 00:00:00 Completed [facility] Tdap 2018-10-18 00:00:00 Completed [facility] Tdap 2018-10-18 00:00:00 Completed [facility] Tdap 2018-10-18 00:00:00 Completed [facility] Tdap 2018-10-18 00:00:00 Completed [facility] Tdap 2018-10-18 00:00:00 Completed [facility] Tdap 2018-10-18 00:00:00 Completed [facility] Tdap 2018-10-18 00:00:00 Completed [facility] TDAP 2018-10-18 00:00:00 Completed [facility] TDAP 2018-10-18 00:00:00 Completed [facility] TDAP 2018-10-18 00:00:00 Completed [facility] TDAP 2018-10-18 00:00:00 Completed [facility] Tdap 2018-10-18 00:00:00 Completed [facility] TDAP 2018-10-18 00:00:00 Completed [facility] TDAP 2018-10-18 00:00:00 Completed [facility] TDAP 2018-10-18 00:00:00 Completed [facility] TDAP 2018-10-18 00:00:00 Completed [facility] TDAP 2018-10-18 00:00:00 Completed [facility] TDAP 2018-10-18 00:00:00 Completed [facility] TDAP 2018-10-18 00:00:00 Completed [facility] TDAP 2018-10-18 00:00:00 Completed [facility] TDAP 2018-10-18 00:00:00 Completed [facility] TDAP 2018-10-18 00:00:00 Completed [facility] Tdap 2018-10-18 00:00:00 Completed [facility] TDAP 2018-10-18 00:00:00 Completed [facility] TDAP 2018-10-18 00:00:00 Completed [facility] TDAP 2018-10-18 00:00:00 Completed [facility] Tdap 2018-10-18 00:00:00 Completed [facility] TDAP 2018-10-18 00:00:00 Completed [facility] TDAP 2018-10-18 00:00:00 Completed [facility] TDAP 2018-10-18 00:00:00 Completed [facility] Influenza Virus Vaccine Quad IM Multi-dose 6+ MO 2018-08-20 00:00:00 Completed [facility] Influenza Virus Vaccine Quad IM Multi-dose 6+ MO 2018-08-20 00:00:00 Completed [facility] Influenza Virus Vaccine Quad IM Multi-dose 6+ MO 2018-08-20 00:00:00 Completed [facility] Influenza Virus Vaccine Quad IM Multi-dose 6+ MO 2018-08-20 00:00:00 Completed [facility] Influenza Virus Vaccine Quad IM Multi-dose 6+ MO 2018-08-20 00:00:00 Completed [facility] Influenza Virus Vaccine Quad IM Multi-dose 6+ MO 2018-08-20 00:00:00 Completed [facility] Influenza Virus Vaccine Quad IM Multi-dose 6+ MO 2018-08-20 00:00:00 Completed [facility] Influenza Virus Vaccine Quad IM Multi-dose 6+ MO 2018-08-20 00:00:00 Completed [facility] Influenza Virus Vaccine Quad IM Multi-dose 6+ MO 2018-08-20 00:00:00 Completed [facility] Influenza Virus Vaccine Quad IM Multi-dose 6+ MO 2018-08-20 00:00:00 Completed [facility] Influenza Virus Vaccine Quad IM Multi-dose 6+ MO 2018-08-20 00:00:00 Completed [facility] Influenza Virus Vaccine Quad IM Multi-dose 6+ MO 2018-08-20 00:00:00 Completed [facility] Influenza Virus Vaccine Quad IM Multi-dose 6+ MO 2018-08-20 00:00:00 Completed [facility] Influenza Virus Vaccine Quad IM Multi-dose 6+ MO 2018-08-20 00:00:00 Completed [facility] Influenza Virus Vaccine Quad IM Multi-dose 6+ MO 2018-08-20 00:00:00 Completed [facility] Influenza Virus Vaccine Quad IM Multi-dose 6+ MO 2018-08-20 00:00:00 Completed [facility] Influenza Virus Vaccine Quad IM Multi-dose 6+ MO 2018-08-20 00:00:00 Completed [facility] Influenza Virus Vaccine Quad IM Multi-dose 6+ MO 2018-08-20 00:00:00 Completed [facility] Influenza Virus Vaccine Quad IM Multi-dose 6+ MO 2018-08-20 00:00:00 Completed [facility] Influenza Virus Vaccine Quad IM Multi-dose 6+ MO 2018-08-20 00:00:00 Completed [facility] Influenza Virus Vaccine Quad IM Multi-dose 6+ MO 2018-08-20 00:00:00 Completed [facility] Influenza Virus Vaccine Quad IM Multi-dose 6+ MO 2018-08-20 00:00:00 Completed [facility] Influenza Virus Vaccine Quad IM Multi-dose 6+ MO 2018-08-20 00:00:00 Completed [facility] Influenza Virus Vaccine Quad IM Multi-dose 6+ MO 2018-08-20 00:00:00 Completed [facility] Influenza Virus Vaccine Quad IM Multi-dose 6+ MO 2018-08-20 00:00:00 Completed [facility] Influenza Virus Vaccine Quad IM Multi-dose 6+ MO 2018-08-20 00:00:00 Completed [facility] Influenza Virus Vaccine Quad IM Multi-dose 6+ MO 2018-08-20 00:00:00 Completed [facility] Influenza Virus Vaccine Quad IM Multi-dose 6+ MO 2018-08-20 00:00:00 Completed [facility] Influenza Virus Vaccine Quad IM Multi-dose 6+ MO 2018-08-20 00:00:00 Completed [facility] Influenza Virus Vaccine Quad IM Multi-dose 6+ MO 2018-08-20 00:00:00 Completed [facility] Influenza Virus Vaccine Quad IM Multi-dose 6+ MO 2018-08-20 00:00:00 Completed [facility] Influenza Virus Vaccine Quad IM Multi-dose 6+ MO 2018-08-20 00:00:00 Completed [facility] Influenza Virus Vaccine Quad IM Multi-dose 6+ MO 2018-08-20 00:00:00 Completed [facility] Influenza Virus Vaccine Quad IM Multi-dose 6+ MO 2018-08-20 00:00:00 Completed [facility] Influenza Virus Vaccine Quad IM Multi-dose 6+ MO 2018-08-20 00:00:00 Completed [facility] Influenza Virus Vaccine Quad IM Multi-dose 6+ MO 2018-08-20 00:00:00 Completed [facility] Influenza Virus Vaccine Quad IM Multi-dose 6+ MO 2018-08-20 00:00:00 Completed [facility] Influenza Virus Vaccine Quad IM Multi-dose 6+ MO 2018-08-20 00:00:00 Completed [facility] Influenza Virus Vaccine Quad IM Multi-dose 6+ MO 2018-08-20 00:00:00 Completed [facility] Influenza Virus Vaccine Quad IM Multi-dose 6+ MO 2018-08-20 00:00:00 Completed [facility] Influenza Virus Vaccine Quad IM Multi-dose 6+ MO 2018-08-20 00:00:00 Completed [facility] Influenza Virus Vaccine Quad IM Multi-dose 6+ MO 2018-08-20 00:00:00 Completed [facility] Influenza Virus Vaccine Quad IM Multi-dose 6+ MO 2018-08-20 00:00:00 Completed [facility] HPV 2015-05-06 00:00:00 Completed [facility] HPV 2015-05-06 00:00:00 Completed [facility] HPV 2015-05-06 00:00:00 Completed [facility] HPV 2015-05-06 00:00:00 Completed [facility] HPV 2015-05-06 00:00:00 Completed [facility] HPV 2015-05-06 00:00:00 Completed [facility] HPV 2015-05-06 00:00:00 Completed [facility] HPV 2015-05-06 00:00:00 Completed [facility] HPV 2015-05-06 00:00:00 Completed [facility] HPV 2015-05-06 00:00:00 Completed [facility] HPV 2015-05-06 00:00:00 Completed [facility] HPV 2015-05-06 00:00:00 Completed [facility] HPV 2015-05-06 00:00:00 Completed [facility] HPV 2015-05-06 00:00:00 Completed [facility] HPV 2015-05-06 00:00:00 Completed [facility] HPV 2015-05-06 00:00:00 Completed [facility] HPV 2015-05-06 00:00:00 Completed [facility] HPV 2015-05-06 00:00:00 Completed [facility] HPV 2015-05-06 00:00:00 Completed [facility] HPV 2015-05-06 00:00:00 Completed [facility] HPV 2015-05-06 00:00:00 Completed [facility] HPV 2015-05-06 00:00:00 Completed [facility] HPV 2015-05-06 00:00:00 Completed [facility] HPV 2015-05-06 00:00:00 Completed [facility] HPV 2015-05-06 00:00:00 Completed [facility] HPV 2015-05-06 00:00:00 Completed [facility] HPV 2015-05-06 00:00:00 Completed [facility] HPV 2015-05-06 00:00:00 Completed [facility] HPV 2015-05-06 00:00:00 Completed [facility] HPV 2015-05-06 00:00:00 Completed [facility] HPV 2015-05-06 00:00:00 Completed [facility] HPV 2015-05-06 00:00:00 Completed [facility] HPV 2015-05-06 00:00:00 Completed [facility] HPV 2015-05-06 00:00:00 Completed [facility] HPV 2015-05-06 00:00:00 Completed [facility] HPV 2015-05-06 00:00:00 Completed [facility] HPV 2015-05-06 00:00:00 Completed [facility] HPV 2015-05-06 00:00:00 Completed [facility] HPV 2015-05-06 00:00:00 Completed [facility] HPV 2015-05-06 00:00:00 Completed [facility] HPV 2015-05-06 00:00:00 Completed [facility] HPV 2015-05-06 00:00:00 Completed [facility] HPV 2015-05-06 00:00:00 Completed [facility] HPV 2015-01-02 00:00:00 Completed [facility] MMR 2015-01-02 00:00:00 Completed [facility] HPV 2015-01-02 00:00:00 Completed [facility] MMR 2015-01-02 00:00:00 Completed [facility] HPV 2015-01-02 00:00:00 Completed [facility] MMR 2015-01-02 00:00:00 Completed [facility] HPV 2015-01-02 00:00:00 Completed [facility] MMR 2015-01-02 00:00:00 Completed [facility] HPV 2015-01-02 00:00:00 Completed [facility] MMR 2015-01-02 00:00:00 Completed [facility] HPV 2015-01-02 00:00:00 Completed [facility] MMR 2015-01-02 00:00:00 Completed [facility] HPV 2015-01-02 00:00:00 Completed [facility] HPV 2015-01-02 00:00:00 Completed MMR 2015-01-02 00:00:00 Completed MMR 2015-01-02 00:00:00 Completed [facility] HPV 2015-01-02 00:00:00 Completed [facility] MMR 2015-01-02 00:00:00 Completed [facility] HPV 2015-01-02 00:00:00 Completed [facility] MMR 2015-01-02 00:00:00 Completed [facility] HPV 2015-01-02 00:00:00 Completed [facility] HPV 2015-01-02 00:00:00 Completed [facility] MMR 2015-01-02 00:00:00 Completed [facility] MMR 2015-01-02 00:00:00 Completed [facility] HPV 2015-01-02 00:00:00 Completed [facility] MMR 2015-01-02 00:00:00 Completed [facility] HPV 2015-01-02 00:00:00 Completed [facility] MMR 2015-01-02 00:00:00 Completed [facility] HPV 2015-01-02 00:00:00 Completed [facility] MMR 2015-01-02 00:00:00 Completed [facility] HPV 2015-01-02 00:00:00 Completed [facility] MMR 2015-01-02 00:00:00 Completed [facility] HPV 2015-01-02 00:00:00 Completed [facility] MMR 2015-01-02 00:00:00 Completed [facility] HPV 2015-01-02 00:00:00 Completed [facility] MMR 2015-01-02 00:00:00 Completed [facility] HPV 2015-01-02 00:00:00 Completed [facility] MMR 2015-01-02 00:00:00 Completed [facility] HPV 2015-01-02 00:00:00 Completed [facility] MMR 2015-01-02 00:00:00 Completed [facility] HPV 2015-01-02 00:00:00 Completed [facility] MMR 2015-01-02 00:00:00 Completed [facility] HPV 2015-01-02 00:00:00 Completed [facility] MMR 2015-01-02 00:00:00 Completed [facility] HPV 2015-01-02 00:00:00 Completed [facility] MMR 2015-01-02 00:00:00 Completed [facility] HPV 2015-01-02 00:00:00 Completed [facility] HPV 2015-01-02 00:00:00 Completed [facility] MMR 2015-01-02 00:00:00 Completed [facility] MMR 2015-01-02 00:00:00 Completed [facility] HPV 2015-01-02 00:00:00 Completed [facility] MMR 2015-01-02 00:00:00 Completed [facility] HPV 2015-01-02 00:00:00 Completed [facility] MMR 2015-01-02 00:00:00 Completed [facility] HPV 2015-01-02 00:00:00 Completed [facility] MMR 2015-01-02 00:00:00 Completed [facility] HPV 2015-01-02 00:00:00 Completed [facility] MMR 2015-01-02 00:00:00 Completed [facility] HPV 2015-01-02 00:00:00 Completed [facility] MMR 2015-01-02 00:00:00 Completed [facility] HPV 2015-01-02 00:00:00 Completed [facility] MMR 2015-01-02 00:00:00 Completed [facility] HPV 2015-01-02 00:00:00 Completed [facility] MMR 2015-01-02 00:00:00 Completed [facility] HPV 2015-01-02 00:00:00 Completed [facility] MMR 2015-01-02 00:00:00 Completed [facility] HPV 2015-01-02 00:00:00 Completed [facility] MMR 2015-01-02 00:00:00 Completed [facility] HPV 2015-01-02 00:00:00 Completed [facility] MMR 2015-01-02 00:00:00 Completed [facility] HPV 2015-01-02 00:00:00 Completed [facility] MMR 2015-01-02 00:00:00 Completed [facility] HPV 2015-01-02 00:00:00 Completed [facility] MMR 2015-01-02 00:00:00 Completed [facility] HPV 2015-01-02 00:00:00 Completed [facility] MMR 2015-01-02 00:00:00 Completed [facility] HPV 2015-01-02 00:00:00 Completed [facility] HPV 2015-01-02 00:00:00 Completed [facility] MMR 2015-01-02 00:00:00 Completed [facility] MMR 2015-01-02 00:00:00 [facility] [facility] 2015-01-02 00:00:00 Completed [facility] MMR 2015-01-02 00:00:00 Completed [facility] HPV 2015-01-02 00:00:00 Completed [facility] MMR 2015-01-02 00:00:00 Completed [facility] HPV 2015-01-02 00:00:00 Completed [facility] MMR 2015-01-02 00:00:00 Completed [facility] HPV 2014-11-06 00:00:00 Completed [facility] HPV 2014-11-06 00:00:00 Completed [facility] HPV 2014-11-06 00:00:00 Completed [facility] HPV 2014-11-06 00:00:00 Completed [facility] HPV 2014-11-06 00:00:00 Completed [facility] HPV 2014-11-06 00:00:00 Completed [facility] HPV 2014-11-06 00:00:00 Completed [facility] HPV 2014-11-06 00:00:00 Completed [facility] HPV 2014-11-06 00:00:00 Completed [facility] HPV 2014-11-06 00:00:00 Completed [facility] HPV 2014-11-06 00:00:00 Completed [facility] HPV 2014-11-06 00:00:00 Completed [facility] HPV 2014-11-06 00:00:00 Completed [facility] HPV 2014-11-06 00:00:00 Completed [facility] HPV 2014-11-06 00:00:00 Completed [facility] HPV 2014-11-06 00:00:00 Completed [facility] HPV 2014-11-06 00:00:00 Completed [facility] HPV 2014-11-06 00:00:00 Completed [facility] HPV 2014-11-06 00:00:00 Completed [facility] HPV 2014-11-06 00:00:00 Completed [facility] HPV 2014-11-06 00:00:00 Completed [facility] HPV 2014-11-06 00:00:00 Completed [facility] HPV 2014-11-06 00:00:00 Completed [facility] HPV 2014-11-06 00:00:00 Completed [facility] HPV 2014-11-06 00:00:00 Completed [facility] HPV 2014-11-06 00:00:00 Completed [facility] HPV 2014-11-06 00:00:00 Completed [facility] HPV 2014-11-06 00:00:00 Completed [facility] HPV 2014-11-06 00:00:00 Completed [facility] HPV 2014-11-06 00:00:00 Completed [facility] HPV 2014-11-06 00:00:00 Completed [facility] HPV 2014-11-06 00:00:00 Completed [facility] HPV 2014-11-06 00:00:00 Completed [facility] HPV 2014-11-06 00:00:00 Completed [facility] HPV 2014-11-06 00:00:00 Completed [facility] HPV 2014-11-06 00:00:00 Completed [facility] HPV 2014-11-06 00:00:00 Completed [facility] HPV 2014-11-06 00:00:00 Completed [facility] HPV 2014-11-06 00:00:00 Completed [facility] HPV 2014-11-06 00:00:00 Completed [facility] HPV 2014-11-06 00:00:00 Completed [facility] HPV 2014-11-06 00:00:00 Completed [facility] HPV 2014-11-06 00:00:00 Completed [facility] Td 2008-10-16 00:00:00 Completed [facility] TD, NOS 2008-10-16 00:00:00 Completed [facility] TD, NOS 2008-10-16 00:00:00 Completed [facility] TD, NOS 2008-10-16 00:00:00 Completed [facility] TD, NOS 2008-10-16 00:00:00 Completed [facility] TD, NOS 2008-10-16 00:00:00 Completed [facility] Td 2008-10-16 00:00:00 Completed [facility] TD, NOS 2008-10-16 00:00:00 Completed [facility] Td 2008-10-16 00:00:00 Completed [facility] Td 2008-10-16 00:00:00 Completed [facility] Td 2008-10-16 00:00:00 Completed [facility] Td 2008-10-16 00:00:00 Completed [facility] Td 2008-10-16 00:00:00 Completed [facility] Td 2008-10-16 00:00:00 Completed [facility] Td 2008-10-16 00:00:00 Completed [facility] Td 2008-10-16 00:00:00 Completed [facility] Td 2008-10-16 00:00:00 Completed [facility] Td 2008-10-16 00:00:00 Completed [facility] Td 2008-10-16 00:00:00 Completed [facility] Td 2008-10-16 00:00:00 Completed [facility] Td 2008-10-16 00:00:00 Completed [facility] Td 2008-10-16 00:00:00 Completed [facility] Td 2008-10-16 00:00:00 Completed [facility] Td 2008-10-16 00:00:00 Completed [facility] Td 2008-10-16 00:00:00 Completed [facility] Td 2008-10-16 00:00:00 Completed [facility] Td 2008-10-16 00:00:00 Completed [facility] Td 2008-10-16 00:00:00 Completed [facility] Td 2008-10-16 00:00:00 Completed [facility] Td 2008-10-16 00:00:00 Completed [facility] Td 2008-10-16 00:00:00 Completed [facility] Td 2008-10-16 00:00:00 Completed [facility] Td 2008-10-16 00:00:00 Completed [facility] Td 2008-10-16 00:00:00 Completed [facility] Td 2008-10-16 00:00:00 Completed [facility] Td 2008-10-16 00:00:00 Completed [facility] Td 2008-10-16 00:00:00 Completed [facility] Td 2008-10-16 00:00:00 Completed [facility] Td 2008-10-16 00:00:00 Completed [facility] Td 2008-10-16 00:00:00 Completed [facility] Td 2008-10-16 00:00:00 Completed [facility] Td 2008-10-16 00:00:00 Completed [facility] Td 2008-10-16 00:00:00 Completed [facility] TD, NOS Unknown Completed [facility] HPV Unknown Completed [facility] MMR Unknown Completed [facility] Influenza Virus Vaccine Quad IM Multi-dose 6+ MO Unknown Completed [facility] TDAP Unknown Completed [facility] Influenza Virus Vaccine Quad .5 mL IM 6+ MO (FLUZONE/FLULAVAL/F LUARIX) Unknown Completed [facility] SARS-COV-2 COVID-19 VACCINE - (MODERNA) Unknown Completed [facility] Vital Signs Vital Name Observation Time Observation Value Comments S ource Systolic blood pressure 2024-11-19 07:30:00 105 mm[Hg] [facility] Diastolic blood pressure 2024-11-19 07:30:00 76 mm[Hg] [facility] Heart rate 2024-11-19 07:30:00 64 /min [facility] Body temperature 2024-11-19 07:30:00 36.61 Delma [facility] Respiratory rate 2024-11-19 07:30:00 18 /min [facility] Oxygen saturation in Arterial blood by Pulse oximetry 2024-11-19 07:30:00 100 /min [facility] Body height 2024-11-19 05:57:00 165.1 cm [facility] Body weight 2024-11-19 05:57:00 56.7 kg [facility] BMI 2024-11-19 05:57:00 20.80 kg/m2 [facility] Body height 2024-04-03 13:53:00 165.1 cm Hilda ey Seybold - External Systolic blood pressure 2024-02-27 16:29:00 114 mm[Hg] Jing Seybo ld - External Diastolic blood pressure 2024-02-27 16:29:00 75 mm[Hg] Jing [facility]bo [facility] - External Heart rate 2024-02-27 16:29:00 83 /min Kelse y Seybold - External Respiratory rate 2024-02-27 16:29:00 18 /min Jing Seybold - External Body height 2024-02-27 16:29:00 165.1 cm Hidla ey Seybold - External Body weight 2024-02-27 16:29:00 58.786 kg Hilda ey Seybold - External BMI 2024-02-27 16:29:00 21.57 kg/m2 Hilda ey Seybold - External Systolic blood pressure 2023-01-10 20:24:00 118 mm[Hg] [facility] Diastolic blood pressure 2023-01-10 20:24:00 95 mm[Hg] [facility] Heart rate 2023-01-10 20:24:00 72 /min [facility] 2023-01-10 20:24:00 36.61 Delma [facility] Respiratory rate 2023-01-10 20:24:00 18 /min [facility] Body height 2023-01-10 20:24:00 165.1 cm [facility] Body weight 2023-01-10 20:24:00 61.054 kg [facility] BMI 2023-01-10 20:24:00 22.40 kg/m2 [facility] Systolic blood pressure 2022-11-15 14:28:00 104 mm[Hg] [facility] Diastolic blood pressure 2022-11-15 14:28:00 54 mm[Hg] [facility] Heart rate 2022-11-15 14:28:00 81 /min [facility] Body temperature 2022-11-15 14:28:00 37.39 Delma [facility] Respiratory rate 2022-11-15 14:28:00 18 /min [facility] Body height 2022-11-15 14:28:00 165.1 cm [facility] weight 2022-11-15 14:28:00 60.691 kg [facility] BMI 2022-11-15 14:28:00 22.27 kg/m2 [facility] Systolic blood pressure 2020-09-07 16:25:00 103 mm[Hg] [facility] Diastolic blood pressure 2020-09-07 16:25:00 67 mm[Hg] [facility] Heart rate 2020-09-07 16:25:00 61 /min [facility] Body temperature 2020-09-07 16:25:00 36.83 Delma [facility] Respiratory rate 2020-09-07 16:25:00 16 /min [facility] Body height 2020-09-07 16:25:00 165.1 cm [facility] weight 2020-09-07 16:25:00 74.299 kg [facility] BMI 2020-09-07 16:25:00 27.26 kg/m2 [facility] Systolic blood pressure 2020-09-07 16:25:00 103 mm[Hg] [facility] Diastolic blood pressure 2020-09-07 16:25:00 67 mm[Hg] [facility] Heart rate 2020-09-07 16:25:00 61 /min [facility] Body temperature 2020-09-07 16:25:00 36.83 Delma [facility] Respiratory rate 2020-09-07 16:25:00 16 /min [facility] Body height 2020-09-07 16:25:00 165.1 cm [facility] 2020-09-07 16:25:00 74.299 kg [facility] 2020-09-07 16:25:00 27.26 kg/m2 [facility] Systolic blood pressure 2020-08-16 13:55:00 125 mm[Hg] [facility] Diastolic blood pressure 2020-08-16 13:55:00 85 mm[Hg] [facility] Heart rate 2020-08-16 13:55:00 73 /min [facility] Body temperature 2020-08-16 13:55:00 37 [facility] Respiratory rate 2020-08-16 13:55:00 17 /min [facility] Oxygen saturation in Arterial blood by Pulse oximetry 2020-08-16 13:55:00 97 /min [facility] Body height 2020-08-14 15:45:00 165.1 cm [facility] Body weight 2020-08-14 15:45:00 83.689 kg [facility] BMI 2020-08-14 15:45:00 30.70 kg/m2 [facility] Systolic blood pressure 2020-08-16 13:55:00 125 mm[Hg] [facility] Diastolic blood pressure 2020-08-16 13:55:00 85 mm[Hg] [facility] Heart rate 2020-08-16 13:55:00 73 /min [facility] Body temperature 2020-08-16 13:55:00 37 [facility] Respiratory rate 2020-08-16 13:55:00 17 /min [facility] Oxygen saturation in Arterial blood by Pulse oximetry 2020-08-16 13:55:00 97 /min [facility] Body height 2020-08-14 15:45:00 165.1 cm [facility] Body weight 2020-08-14 15:45:00 83.689 kg [facility] BMI 2020-08-14 15:45:00 30.70 kg/m2 [facility] Heart rate 2020-08-11 05:30:00 83 /min [facility] Oxygen saturation in Arterial blood by Pulse oximetry 2020-08-11 04:45:00 98 /min [facility] Systolic blood pressure 2020-08-11 04:39:00 113 mm[Hg] [facility] Diastolic blood pressure 2020-08-11 04:39:00 78 mm[Hg] [facility] Body temperature 2020-08-11 04:39:00 36.83 Delma [facility] Respiratory rate 2020-08-11 04:39:00 16 /min [facility] Body height 2020-08-11 04:39:00 165.1 cm [facility] Body weight 2020-08-11 04:39:00 83.462 kg [facility] BMI 2020-08-11 04:39:00 30.62 kg/m2 [facility] Heart rate 2020-08-11 05:30:00 83 /min [facility] Oxygen saturation in Arterial blood by Pulse oximetry 2020-08-11 04:45:00 98 /min [facility] Systolic blood pressure 2020-08-11 04:39:00 113 mm[Hg] [facility] Diastolic blood pressure 2020-08-11 04:39:00 78 mm[Hg] [facility] Body temperature 2020-08-11 04:39:00 36.83 Delma [facility] Respiratory rate 2020-08-11 04:39:00 16 /min [facility] Body height 2020-08-11 04:39:00 165.1 cm [facility] Body weight 2020-08-11 04:39:00 83.462 kg [facility] BMI 2020-08-11 04:39:00 30.62 kg/m2 [facility] Systolic blood pressure 2020-08-06 19:05:00 119 mm[Hg] [facility] Diastolic blood pressure 2020-08-06 19:05:00 72 mm[Hg] [facility] Heart rate 2020-08-06 19:05:00 91 /min [facility] Body temperature 2020-08-06 19:05:00 36.72 Delma [facility] Respiratory rate 2020-08-06 19:05:00 16 /min [facility] Body height 2020-08-06 19:05:00 165.1 cm [facility] weight 2020-08-06 19:05:00 81.279 kg [facility] BMI 2020-08-06 19:05:00 29.82 kg/m2 [facility] Sy[facility] pressure 2020-08-06 19:05:00 119 mm[Hg] [facility] Diastolic blood pressure 2020-08-06 19:05:00 72 mm[Hg] [facility] Heart rate 2020-08-06 19:05:00 91 /min [facility] Body temperature 2020-08-06 19:05:00 36.72 Delma [facility] Respiratory rate 2020-08-06 19:05:00 16 /min [facility] Body height 2020-08-06 19:05:00 165.1 cm [facility] Body weight 2020-08-06 19:05:00 81.279 kg [facility] BMI 2020-08-06 19:05:00 29.82 kg/m2 [facility] Systolic blood pressure 2020-07-31 18:04:00 108 mm[Hg] [facility] Diastolic blood pressure 2020-07-31 18:04:00 68 mm[Hg] [facility] Heart rate 2020-07-31 18:04:00 81 /min [facility] Body temperature 2020-07-31 18:04:00 37 Delma [facility] Respiratory rate 2020-07-31 18:04:00 16 /min [facility] Body height 2020-07-31 18:04:00 165.1 cm [facility] Body weight 2020-07-31 18:04:00 80.105 kg [facility] BMI 2020-07-31 18:04:00 29.39 kg/m2 [facility] Systolic blood pressure 2020-07-24 14:32:00 115 mm[Hg] [facility] Diastolic blood pressure 2020-07-24 14:32:00 72 mm[Hg] [facility] Heart rate 2020-07-24 14:32:00 104 /min [facility] Body temperature 2020-07-24 14:32:00 36.72 Delma [facility] Respiratory rate 2020-07-24 14:32:00 16 /min [facility] Body height 2020-07-24 14:32:00 165.1 cm [facility] 2020-07-24 14:32:00 79.153 kg [facility] BMI 2020-07-24 14:32:00 29.04 kg/m2 [facility] Systolic blood pressure 2020-07-10 16:09:00 115 mm[Hg] [place] [facility] Diastolic blood pressure 2020-07-10 16:09:00 69 mm[Hg] [facility] Heart rate 2020-07-10 16:09:00 81 /min [facility] Body temperature 2020-07-10 16:09:00 36.39 Delma [facility] Respiratory rate 2020-07-10 16:09:00 16 /min [facility] Body height 2020-07-10 16:09:00 165.1 cm [facility] Body weight 2020-07-10 16:09:00 76.885 kg [facility] BMI 2020-07-10 16:09:00 28.21 kg/m2 [facility] Systolic blood pressure 2020-06-26 13:58:00 110 mm[Hg] [facility] Diastolic blood pressure 2020-06-26 13:58:00 73 mm[Hg] [facility] Heart rate 2020-06-26 13:58:00 99 /min [facility] Body temperature 2020-06-26 13:58:00 36.11 Delma [facility] Respiratory rate 2020-06-26 13:58:00 16 /min [facility] Body height 2020-06-26 13:58:00 162.6 cm [facility] Body weight 2020-06-26 13:58:00 74.078 kg [facility] BMI 2020-06-26 13:58:00 28.03 kg/m2 [facility] Systolic blood pressure 2020-06-12 15:31:00 108 mm[Hg] [facility] Diastolic blood pressure 2020-06-12 15:31:00 69 mm[Hg] [facility] Heart rate 2020-06-12 15:31:00 97 /min [facility] Body temperature 2020-06-12 15:31:00 36.11 Delma [facility] Respiratory rate 2020-06-12 15:31:00 16 /min [facility] Body height 2020-06-12 15:31:00 162.6 cm [facility] Body weight 2020-06-12 15:31:00 72.689 kg [facility] BMI 2020-06-12 15:31:00 27.51 kg/m2 [facility] Systolic blood pressure 2020-05-28 16:20:00 114 mm[Hg] [facility] Diastolic blood pressure 2020-05-28 16:20:00 69 mm[Hg] [facility] Heart rate 2020-05-28 16:20:00 85 /min [facility] Body temperature 2020-05-28 16:20:00 36.11 Delma [facility] Respiratory rate 2020-05-28 16:20:00 16 /min [facility] Body height 2020-05-28 16:20:00 162.6 cm [facility] Body weight 2020-05-28 16:20:00 70.988 kg [facility] BMI 2020-05-28 16:20:00 26.86 kg/m2 [facility] Systolic blood pressure 2020-04-28 15:52:00 114 mm[Hg] [facility] Diastolic blood pressure 2020-04-28 15:52:00 73 mm[Hg] [facility] Heart rate 2020-04-28 15:52:00 87 /min [facility] Body temperature 2020-04-28 15:52:00 36.22 Delma [facility] Respiratory rate 2020-04-28 15:52:00 16 /min [facility] Body height 2020-04-28 15:52:00 162.6 cm [facility] Body weight 2020-04-28 15:52:00 68.266 kg [facility] BMI 2020-04-28 15:52:00 25.83 kg/m2 [facility] Systolic blood pressure 2020-03-31 15:19:00 97 mm[Hg] [facility] Diastolic blood pressure 2020-03-31 15:19:00 63 mm[Hg] [facility] Heart rate 2020-03-31 15:19:00 69 /min [facility] Body temperature 2020-03-31 15:19:00 36.39 Delma [facility] Respiratory rate 2020-03-31 15:19:00 16 /min [facility] Body height 2020-03-31 15:19:00 162.6 cm [facility] 2020-03-31 15:19:00 67.841 kg [facility] BMI 2020-03-31 15:19:00 25.67 kg/m2 [facility] Body weight 2020-02-14 18:17:00 63.504 kg [facility] BMI 2020-02-14 18:17:00 23.30 kg/m2 [facility] Systolic blood pressure 2020-02-04 16:13:00 115 mm[Hg] [facility] Diastolic blood pressure 2020-02-04 16:13:00 70 mm[Hg] [facility] Heart rate 2020-02-04 16:13:00 79 /min [facility] Body temperature 2020-02-04 16:13:00 36.17 Delma [facility] Respiratory rate 2020-02-04 16:13:00 16 /min [facility] Body height 2020-02-04 16:13:00 165.1 cm [facility] Body weight 2020-02-04 16:13:00 63.645 kg [facility] BMI 2020-02-04 16:13:00 23.35 kg/m2 [facility] Systolic blood pressure 2020-01-02 14:54:00 105 mm[Hg] [facility] Diastolic blood pressure 2020-01-02 14:54:00 64 mm[Hg] [facility] Heart rate 2020-01-02 14:54:00 83 /min [facility] Body temperature 2020-01-02 14:54:00 37 Delma [facility] Respiratory rate 2020-01-02 14:54:00 16 /min [facility] Body height 2020-01-02 14:54:00 165.1 cm [facility] Body weight 2020-01-02 14:54:00 62.171 kg [facility] BMI 2020-01-02 14:54:00 22.81 kg/m2 [facility] Procedures Procedure Date / Time Performed Performing Clinician Source RAPID STREP SCREEN FOR GROUP A 2024-11-19 06:06:00 Alannah Irwin [facility] INFLUENZA A/B RSV COVID NAAT 2024-11-19 06:06:00 Alannah Irwin [facility] HCV ANTIBODY 2023-01-10 21:00:00 Hafsa Smart [facility] HIV 1/2 AG-AB WITH REFLEX 2023-01-10 21:00:00 Hafsa Reese [facility] SYPHILIS IGG/IGM 2023-01-10 21:00:00 Hafsa Smart [facility] PATIENT FINANCIAL POLICY 2023-01-10 19:57:03 Doctor Unassigned, [place] [facility] CONSENT/REFUSAL FOR DIAGNOSIS AND TREATMENT 2022-11-15 14:10:32 Doctor Unassigned, [place] [facility] ASSIGNMENT OF BENEFITS 2022-11-15 14:10:13 Docto r Unassigned, [place] [facility] CBC WITH DIFF 2020-08-15 09:11:00 Felecia Villavicencio [facility] VENOUS CORD GAS 2020-08-15 00:55:00 Vonnie Cline [facility] CBC WITH DIFF 2020-08-14 10:24:00 Edel Carballo [facility] HEPATITIS B SURFACE ANTIGEN 2020-08-14 10:24:00 Edel Carballo [facility] ADC OR ISA ONLY - RPR 2020-08-14 10:24:00 Pablo Carballo [facility] HIV 1/2 AG-AB WITH REFLEX 2020-08-14 10:24:00 Pablo Carballo [facility] HB ABO GROUPING 2020-08-14 10:20:00 Edel Carballo [facility] RHO (D) IMMUNE GLOBULIN 2020-08-14 10:20:00 Raeshaheed Carrie glass [facility] COVID-19 (ID NOW RAPID TESTING) 2020-08-14 09:21:00 Edel Carballo [facility] ADC ONLY - FERN TEST 2020-08-14 09:05:00 Edel Carballo [facility] L&D VISIT (NON-DELIVERED) 2020-08-14 05:01:00 Do ctor Unassigned, [place] [facility] NON-STRESS TEST 2020-08-06 19:54:52 Alex Henry [facility] POCT URINALYSIS 2020-08-06 19:06:00 Eduardo Henry [facility] POCT URINALYSIS 2020-07-31 00:00:00 Eduardo Henry [facility] POCT URINALYSIS 2020-07-24 14:33:00 Eduardo Henry [facility] POCT URINALYSIS 2020-07-10 00:00:00 Eduardo Henry [facility] POCT URINALYSIS 2020-06-26 14:01:00 Eduardo Henry [facility] POCT URINALYSIS 2020-06-12 15:33:00 Eduardo Henry [facility] STERILIZATION CONSENT FORM 2020-06-12 05:01:00 Doctor Unassigned, [place] [facility] POCT URINALYSIS 2020-05-28 16:24:00 Eduardo Henry [facility] POCT URINALYSIS 2020-04-28 15:54:00 Eduardo Henry [facility] POCT URINALYSIS 2020-03-31 15:20:00 Eduardo Henry [facility] POCT URINALYSIS 2020-02-04 19:05:00 Eduardo Henry [facility] PATIENT CORRESPONDENCE (LETTERS, USPS DOCUMENTATION) 2020-02-04 05:01:00 Doctor Unassigned, [place] [facility] FLU VACC ([id number]), 6+ MONTHS, IM, QUAD 2020-01-02 15:11:35 Eduardo Henry [facility] POCT TEST 2020-01-02 14:49:00 Jonathan Henry [facility] POCT URINALYSIS W/O SPECIFIC GRAVITY 2020-01-02 14:49:00 Eduardo Henry [facility] NOTICE OF PRIVACY PRACTICES 2020-01-02 14:17:14 Doctor Unassigned, [place] [facility] Encounters Start Date/Time End Date/Time Encounter Type Admission Type Attending [facility] Facility Care Department Encounter ID Source 2021-08-14 01:11:54 Outpatient P [facility] [id number] [facility] 2021-08-14 01:11:26 Emergency [facility] [id number] [facility] 2021-08-14 01:11:26 Outpatient P [facility] [id number] [facility] 2024-12-12 09:26:02 2024-12-12 09:26:02 Outpatient SFA SFA [id number] Adalberto Miranda 2024-11-22 10:36:09 2024-11-22 10:36:09 Outpatient SFA SFA [id number] Adalberto Miranda 2024-11-19 00:01:00 2024-11-19 01:32:00 Emergency X ALANNAH IRWIN PAMALA [facility] ERT [id number] [facility] 2024-11-19 00:01:00 2024-11-19 01:32:00 Emergency Alannah Irwin G [facility] 1.2.840.114 350.1.13.10 4.2.7.2.686 [id number] [facility] 2024-11-15 13:53:24 2024-11-15 13:53:24 Outpatient SFA SFA [id number] Adalberto Miranda 2024-05-02 00:00:00 2024-05-02 00:00:00 Outpatient MD JING MENENDEZ [id number] Jing Chiang 2024-04-08 10:30:00 2024-04-08 10:30:00 Outpatient YAJAIRA OCHOA JING JING [id number] [facility] 2024-04-03 09:00:00 2024-04-03 09:00:00 Outpatient OU, ELAN JING JING [id number] [facility] 2024-03-14 00:00:00 2024-03-14 00:00:00 Outpatient OU, ELAN JING SOSA [id number] [facility] 2024-02-27 11:15:00 2024-02-27 11:15:00 Outpatient OU, ELNA JING SOSA [id number] [facility] 2024-02-06 11:00:00 2024-02-06 11:00:00 Outpatient OU, ELAN JING SOSA [id number] [facility] 2023-01-10 15:30:00 2023-01-10 16:00:41 Outpatient R HAFSA SMART [facility] [id number] [facility] 2023-01-10 15:30:00 2023-01-10 16:00:41 Office Visit Provider, Ang-Rmchp Hafsa Barrett [facility] FIELD NATURALIST [facility] .840.114 350.1.13.10 4.2.7.2.686 [id number] [facility] 2023-01-10 00:00:00 2023-01-10 00:00:00 Orders Only Doctor Unassigned, [place] [facility] ..114 350.1.13.10 4.2.7.2.686 [id number] [facility] 2023-01-08 00:00:00 2023-01-08 00:00:00 Patient Secure Msg Doctor Unassigned, [place] [facility] .84.114 350.1.13.10 4.2.7.2.686 [id number] [facility] 2022-11-17 00:00:00 2022-11-17 00:00:00 Case Management Hafsa Smart [facility] FIELD NATURALIST [facility] & CHILD [facility] 1.2.840.114 350.1.13.10 4.2.7.2.686 [id number] [facility] 2022-11-15 08:15:00 2022-11-15 10:03:13 Outpatient R HAFSA SMART [facility] [id number] [facility] 2022-11-15 08:15:00 2022-11-15 10:03:13 Office Visit Provider, Bonilla-Rmchp Hafsa Barrett [facility] FIELD NATURALIST [facility] CHILD [facility] 1.2840.114 350.1.13.10 4.2.7.2.686 [id number] [facility] 2022-11-15 00:00:00 2022-11-15 00:00:00 Orders Only Doctor Unassigned, [place] [facility] 1.2840.114 350.1.13.10 4.2.7.2.686 [id number] [facility] 2020-09-28 10:30:00 2020-09-28 10:30:00 Outpatient R GIANNI DURAN [facility] [id number] [facility] 2020-09-07 10:06:40 2020-09-07 10:21:40 Routine Visit Gianni Durna [facility] FIELD NATURALIST [facility] & CHILD [facility] 1.2.840.114 350.1.13.10 4.2.7.2.686 [id number] [facility] 2020-09-07 10:06:40 2020-09-07 10:21:40 Routine Visit Gianni Duran [facility] FIELD NATURALIST [facility] & CHILD [facility] 1.2.840.114 350.1.13.10 4.2.7.2.686 [id number] 2020-09-07 10:15:00 2020-09-07 10:15:00 Outpatient Marcello HOYTEGIANNI [facility] [id number] [facility] 2020-08-26 00:00:00 2020-08-26 00:00:00 Telephone Eduardo Henry [facility] FIELD NATURALIST [facility] & CHILD [facility] 1.2.840.114 350.1.13.10 4.2.7.2.686 [id number] [facility] 2020-08-26 00:00:00 2020-08-26 00:00:00 Telephone Eduardo Henry [facility] FIELD NATURALIST [facility] 1.2.840.114 350.1.13.10 4.2.7.2.686 [id number] 2020-08-14 03:09:00 2020-08-16 12:55:00 Hospital [facility] 1.2.840.114 350.1.13.10 4.2.7.2.686 [id number] [facility] 2020-08-14 03:09:00 2020-08-16 12:55:00 Hospital Encounter Edel Carballo [facility] 1.2.840.114 350.1.13.10 4.2.7.2.686 [id number] 2020-08-14 08:00:00 2020-08-14 08:00:00 Outpatient R EDUARDO HENRY [facility] [id number] [facility] 2020-08-14 00:00:00 2020-08-14 00:00:00 Orders Only Doctor Unassigned, [place] [facility] 1.2.840.114 350.1.13.10 4.2.7.2.686 [id number] [facility] 2020-08-14 00:00:00 2020-08-14 00:00:00 Orders Only Doctor Unassigned, [place] [facility] 1.2.840.114 350.1.13.10 4.2.7.2.686 [id number] 2020-08-10 23:10:00 2020-08-11 01:00:00 Hospital Encounter Juan Francisco Garcia [facility] 1.2.840.114 350.1.13.10 4.2.7.2.686 [id number] [facility] 2020-08-10 23:10:00 2020-08-11 01:00:00 Hospital Encounter Juan Francisco Garcia [facility] 1.2.840.114 350.1.13.10 4.2.7.2.686 [id number] 2020-08-06 13:48:55 2020-08-06 14:59:03 Routine Visit Eduardo Henry [facility] FIELD NATURALIST [facility] MATERNAL & CHILD [facility] 1.2.840.114 350.1.13.10 4.2.7.2.686 [id number] [facility] 2020-08-06 13:48:55 2020-08-06 14:59:03 Routine Visit Eduardo Henry MIPK FIELD NATURALIST [facility] MATERNAL & CHILD [facility] 1.2.840.114 350.1.13.10 4.2.7.2.686 [id number] 107 [id number] 2020-08-06 14:00:00 2020-08-06 14:00:00 Outpatient R EDUARDO HENRY [facility] [id number] [facility] 2020-08-03 00:00:00 2020-08-03 00:00:00 Telephone Eduardo Henry [facility] FIELD NATURALIST [facility] MATERNAL & CHILD [facility] 1.2.840.114 350.1.13.10 4.2.7.2.686 [id number] [facility] 2020-08-03 00:00:00 2020-08-03 00:00:00 Telephone Eduardo Henry [facility] FIELD NATURALIST [facility] CHILD [facility] 1.2.840.114 350.1.13.10 4.2.7.2.686 [id number] 2020-07-31 12:50:31 2020-07-31 13:29:28 Routine Visit Eduardo Henry [facility] FIELD NATURALIST [facility] & CHILD [facility] 1.2.840.114 350.1.13.10 4.2.7.2.686 [id number] [facility] 2020-07-31 13:00:00 2020-07-31 13:00:00 Outpatient R EDUARDO HENRY [facility] [id number] [facility] 2020-07-24 09:28:35 2020-07-24 09:47:20 Routine Visit Eduardo Henry [facility] FIELD NATURALIST [facility] CHILD [facility] 1.2.840.114 350.1.13.10 4.2.7.2.686 [id number] [facility] 2020-07-24 09:30:00 2020-07-24 09:30:00 Outpatient R EDUARDO HENRY [facility] [id number] [facility] 2020-07-22 00:00:00 2020-07-22 00:00:00 Telephone Eduardo Henry [facility] FIELD NATURALIST [facility] & CHILD [facility] 1.2.840.114 350.1.13.10 4.2.7.2.686 [id number] [facility] 2020-07-10 11:02:49 2020-07-10 11:38:13 Routine Visit Eduardo Henry [facility] FIELD NATURALIST [facility] CHILD [facility] 1.2.840.114 350.1.13.10 4.2.7.2.686 [id number] [facility] 2020-07-10 11:00:00 2020-07-10 11:00:00 Outpatient R EDUARDO HENRY [facility] [id number] [facility] 2020-06-26 08:50:42 2020-06-26 09:05:42 Routine Visit Wingkat Eduardo Schilling MIMB FIELD NATURALIST [facility] MATERNAL & CHILD [facility] 1..840.114 350.1.13.10 4.2.7.2.686 [id number] 107 [id number] [facility] 2020-06-26 09:00:00 2020-06-26 09:00:00 Outpatient R WINGKATEDUARDO [facility] [id number] [facility] 2020-06-16 09:30:00 2020-06-16 09:30:00 Outpatient R WINGKATEDUARDO [facility] [id number] [facility] 2020-06-12 09:41:23 2020-06-12 10:59:00 Routine Visit WingkatEduardo [facility] FIELD NATURALIST [facility] MATERNAL & CHILD [facility] 1..840.114 350.1.13.10 4.2.7.2.686 [id number] [facility] 2020-06-12 10:30:00 2020-06-12 10:30:00 Outpatient R WINGKATEDUARDO [facility] [id number] [facility] 2020-06-12 09:30:00 2020-06-12 09:30:00 Outpatient R EDUARDO HENRY [facility] [id number] [facility] 2020-06-12 00:00:00 2020-06-12 00:00:00 Orders Only Doctor Unassigned, [place] [facility] 1..840.114 350.1.13.10 4.2.7.2.686 [id number] [facility] 2020-06-11 10:30:00 2020-06-11 10:30:00 Outpatient R AKINSIPE, EDUARDO [facility] [id number] [facility] 2020-06-01 08:45:01 2020-06-01 08:51:02 Funeral Counselor Visit Lab, Ang-Rmchp Eduardo Henry MIPK FIELD NATURALIST [facility] & CHILD [facility] 1.2.840.114 350.1.13.10 4.2.7.2.686 [id number] [facility] 2020-06-01 08:30:00 2020-06-01 08:30:00 Outpatient R EDUARDO HENRY [facility] [id number] [facility] 2020-05-29 08:30:00 2020-05-29 08:30:00 Outpatient R [facility] [id number] [facility] 2020-05-28 11:03:28 2020-05-28 11:33:11 Routine Visit Eduardo Henry [facility] FIELD NATURALIST [facility] & CHILD [facility] 1..840.114 350.1.13.10 4.2.7.2.686 [id number] [facility] 2020-05-28 11:00:00 2020-05-28 11:00:00 Outpatient R EDUARDO HENRY [facility] [id number] [facility] 2020-05-26 12:45:00 2020-05-26 12:45:00 Outpatient R EDUARDO HENRY [facility] [id number] [facility] 2020-04-28 10:43:31 2020-04-28 11:38:20 Routine Visit JohnnyjoshuakatEduardo [facility] FIELD NATURALIST [facility] & CHILD [facility] 1.2.840.114 350.1.13.10 4.2.7.2.686 [id number] [facility] 2020-04-28 10:45:00 2020-04-28 10:45:00 Outpatient R WINGKATEDUARDO [facility] [id number] [facility] 2020-04-13 08:04:15 2020-04-13 09:19:15 Funeral Counselor Visit Ultrasound, Joanne Posada [facility] FIELD NATURALIST [facility] MATERNAL & CHILD [facility] 1.284.114 350.1.13.10 4.2.7.2.686 [id number] [facility] 2020-04-13 08:00:00 2020-04-13 08:00:00 Outpatient P [facility] [id number] [facility] 2020-04-13 00:00:00 2020-04-13 00:00:00 Telephone Eduardo Henry [facility] FIELD NATURALIST [facility] & CHILD [facility] 1.840.114 350.1.13.10 4.2.7.2.686 [id number] [facility] 2020-04-13 00:00:00 2020-04-13 00:00:00 Abstract Eduardo Henry [facility] FIELD NATURALIST [facility] & CHILD [facility] 1.84.114 350.1.13.10 4.2.7.2.686 [id number] [facility] 2020-03-31 10:05:38 2020-03-31 10:46:23 Routine Visit Eduardo Henry [facility] FIELD NATURALIST [facility] & CHILD [facility] 1.84.114 350.1.13.10 4.2.7.2.686 [id number] [facility] 2020-03-31 10:00:00 2020-03-31 10:00:00 Outpatient R EDUARDO HENRY [facility] [id number] [facility] 2020-03-30 00:00:00 2020-03-30 00:00:00 Telephone Olivier Jaramillo [facility] 1..114 350.1.13.10 4.2.7.2.686 [id number] [facility] 2020-03-03 09:41:40 2020-03-03 10:18:30 Funeral Counselor Visit Lab, Ang-Rmchp Eduardo Henry Tonie [facility] FIELD NATURALIST [facility] & CHILD [facility] 1.84.114 350.1.13.10 4.2.7.2.686 [id number] [facility] 2020-03-03 10:15:00 2020-03-03 10:15:00 Outpatient R EDUARDO HENRY [facility] [id number] [facility] 2020-03-02 08:01:18 2020-03-02 09:13:00 Telemedici ne Visit Eduardo Henry Tonie [facility] FIELD NATURALIST [facility] & CHILD [facility] 1.840.114 350.1.13.10 4.2.7.2.686 [id number] [facility] 2020-03-02 08:30:00 2020-03-02 08:30:00 Outpatient R EDUARDO HENRY [facility] [id number] [facility] 2020-03-02 00:00:00 2020-03-02 00:00:00 Case Management Owen [facility] 1.840.114 350.1.13.10 4.2.7.2.686 [id number] [facility] 2020-02-28 13:00:00 2020-02-28 13:00:00 Outpatient R EDUARDO HENRY [facility] [id number] [facility] 2020-02-27 00:00:00 2020-02-27 00:00:00 [facility] 1..114 350.1.13.10 4.2.7.2.686 [id number] [facility] 2020-02-14 10:30:00 2020-02-14 10:30:00 Outpatient P [facility] [id number] [facility] 2020-02-14 08:09:28 2020-02-14 08:54:28 Telemedici ne Visit Estela Esposito Joseph W [facility] 1.20.114 350.1.13.10 4.2.7.2.686 [id number] [facility] 2020-02-14 00:00:00 2020-02-14 00:00:00 Telephone Eduardo Henry [facility] FIELD NATURALIST [facility] & CHILD [facility] 1.2840.114 350.1.13.10 4.2.7.2.686 [id number] [facility] 2020-02-13 00:00:00 2020-02-13 00:00:00 Telephone Amy Bartlett [facility] 1.0.114 350.1.13.10 4.2.7.2.686 [id number] [facility] 2020-02-07 00:00:00 2020-02-07 00:00:00 Telephone Eduardo Henry [facility] FIELD NATURALIST [facility] CHILD [facility] 1..114 350.1.13.10 4.2.7.2.686 [id number] [facility] 2020-02-04 10:45:23 2020-02-04 11:51:13 Routine Visit Eduardo Henry [facility] FIELD NATURALIST [facility] & CHILD [facility] 1.20.114 350.1.13.10 4.2.7.2.686 [id number] [facility] 2020-02-04 11:00:00 2020-02-04 11:00:00 Outpatient R EDUARDO HENRY [facility] [id number] [facility] 2020-02-04 00:00:00 2020-02-04 00:00:00 Orders Only Doctor Unassigned, [place] [facility] 1.840.114 350.1.13.10 4.2.7.2.686 [id number] [facility] 2020-01-24 00:00:00 2020-01-24 00:00:00 Telephone Emma Francis [facility] 1.2.114 350.1.13.10 4.2.7.2.686 [id number] [facility] 2020-01-21 11:32:42 2020-01-21 12:02:42 Funeral Counselor Visit Ultrasound, Last Urrutia [facility] FIELD NATURALIST [facility] MATERNAL & CHILD [facility] 1.84.114 350.1.13.10 4.2.7.2.686 [id number] [facility] 2020-01-21 11:30:00 2020-01-21 11:30:00 Outpatient P [facility] [id number] [facility] 2020-01-20 09:30:00 2020-01-20 09:30:00 Outpatient R AMY BARTLETT SHANNON [facility] [id number] [facility] 2020-01-20 08:11:20 2020-01-20 08:41:20 Routine Visit Faculty, Amy Broussard [facility] FIELD NATURALIST [facility] MATERNAL & CHILD [facility] 1.84.114 350.1.13.10 4.2.7.2.686 [id number] [facility] 2020-01-02 09:46:25 2020-01-02 10:35:48 Initial Visit Eduardo Henry [facility] FIELD NATURALIST [facility] MATERNAL & CHILD [facility] 1.84.114 350.1.13.10 4.2.7.2.686 [id number] [facility] 2020-01-02 10:00:00 2020-01-02 10:00:00 Outpatient R EDUARDO HENRY [facility] [id number] [facility] 2020-01-02 00:00:00 2020-01-02 00:00:00 Orders Only Doctor Unassigned, [place] [facility] 1.2.840.114 350.1.13.10 4.2.7.2.686 [id number] [facility] 2019-02-05 13:30:00 2019-02-05 13:38:17 Outpatient R EDUARDO HENRY [facility] [id number] [facility] Results Test Description Test Time Test Comments Results Result Co mments Source CHLAMYDIA, NAAT, [id number] 11:45:43* Test Item Value Reference Range Interpretation Comme nts CHLAMYDIA, NAAT, URINE (test code = 95525) NEGATIVE NEGATIVE Testing is perfo rmed with [employer] 6800/8800 systems usingreal-time polymerase chain reaction (PCR) method. A negative result does not exclude low level infection, specimensampling error, or collection error. GONORRHEA, NAAT, [id number] 11:45:43* Test Item Value Reference Range Interpretation Comme nts GONORRHEA, NAAT, URINE (test code = 49382) NEGATIVE NEGATIVE Testing is perfo rmed with [employer] 6800/8800 systems usingreal-time polymerase chain reaction (PCR) method. A negative result does not exclude low level infection, specimensampling error, or collection error. VAGINAL PATHOGENS DNA [id number] 12:39:37* Test Item Value Reference Range Interpretation Comme nts FRANCES SPECIES (test code = 29469) NEGATIVE NEGATIVE G. VAGINALIS (test code = 96886) POSITIVE NEGATIVE A T. VAGINALIS (test code = 16334) NEGATIVE NEGATIVE Note: The [facility] irm VPIII Microbial Identification Testis a DNA probe test intended for use in the detectionand identification of Frances species, Gardnerellavaginalis and Trichomonas vaginalis nucleic acid. HEPATITIS PANEL, [id number] 05:14:38* Test Item Value Reference Range Interpretation [...] infection. INTERPRETATION HEPATITIS B: (test code = 38266) (NOTE) Hepatitis B sero logy shows no evidence of past exposure to orcurrent infection with hepatitis B virus. No evidence of hepatitis Bimmunization is identified. INTERPRETATION HEPATITIS C: (test code = 59777) (NOTE) Hepatitis C sero logy shows no evidence of exposure to hepatitisC virus at this time. It can take up to 12 months after exposure tothe hepatitis C virus for antibodies to become detectable in the blood in certain patients. HEPATITIS A [id number] 05:14:38* Test Item Value Reference Range Interpretation Comme nts HEPATITIS A IgM (test code = 2728) NON-REACTIVE NON-REACTIVE UNLESS OTHERW ISE INDICATED, ALL TESTING PERFORMED AT [facility] [address] [place] [address] PATIENT INSURANCE CLERK: FREDRICK PACK M.D. CLIA NUMBER [id number] [facility] [place] [id number] HIV 1/2 4TH GEN, RFLX [id number] 05:14:38* Test Item Value Reference Range Interpretation Comme nts HIV 1/2 4TH GEN, RFLX CONF ( test code = 3514) NON-REACTIVE NON-REACTIVE RPR REFLEX TO T. PALLIDUM - [id number] 04:12:26* Test Item Value Reference Range Interpretation Comme nts RPR (test code = 53782) NON-REACTIVE NON-REACTIVE RPR TITER (test code = 3500) NOT INDIC. TITER NOT INDIC. [facility] ONLY - SYPHILIS [id number] 16:14:26* Test Item Value Reference Range Interpretation Comme nts Syphilis IgG/IgM (test code = 48703-9) Non-reactive Non-reactive COLLEEN (test code = COLLEEN) Non-reactive - No serologic evidence of T. pallidum infection. Cannot exclude incubating or early syphilis. Submit a second specimen in 2-4 weeks if syphilis is clinically suspected. Equivocal - Further testing to follow. Reactive - Further testing to follow. Lab Interpretation (test code = 03753-1) [facility] SY[facility]ILIS [id number] 16:14:26* Test Item Value Reference Range Interpretation Comme nts Syphilis IgG/IgM (test code = 15838-7) Non-reactive Non-reactive COLLEEN (test code = COLLEEN) Non-reactive - No serologic evidence of T. pallidum infection. Cannot exclude incubating or early syphilis. Submit a second specimen in 2-4 weeks if syphilis is clinically suspected. Equivocal - Further testing to follow. Reactive - Further testing to follow. Lab Interpretation (test code = 50744-3) Normal [facility] [id number] 09:47:12* Test Item Value Reference Range Interpretation Comme [facility] HCV Ab (test code = 89146-7) Negative HCV Semi-Quantitative (test code = 67756-9) 0.04 [facility] [id number] 09:47:12* Test Item Value Reference Range Interpretation Comme [facility] HCV Ab (test code = 30422-7) Negative HCV Semi-Quantitative (test code = 83384-2) 0.04 [facility] 1/2 AG-AB WITH [id number] 06:05:30* Test Item Value Reference Range Interpretation Comme [facility] HIV Semi-quantitative (test code = 40089-8) 0.09 Negative COLLEEN (test code = COLLEEN) Non-reactive for HIV-1 antigen and HIV-1/HIV-2 antibodies. ?No laboratory evidence of HIV infection. ?Repeat in 2-4 weeks if acute HIV infection is suspected. [facility] 1/2 AG-AB WITH [id number] 06:05:30* Test Item Value Reference Range Interpretation Comme [facility] HIV Semi-quantitative (test code = 36580-1) 0.09 Negative COLLEEN (test code = COLLEEN) Non-reactive for HIV-1 antigen and HIV-1/HIV-2 antibodies. ?No laboratory evidence of HIV infection. ?Repeat in 2-4 weeks if acute HIV infection is suspected. [facility] with [id number] 09:58:00* Test Item Value Reference Range Interpretation [...] 31.6 g/dL 31.6-35.1 RDW-SD (test code = 17651-4) 42.4 fL 39-49.9 RDW-CV (test code = 788-0) 14.8 % 12-15.5 PLT (test code = 777-3) See_Comment [Automated message] The system which generated this result transmitted reference range: 166 - 358 10*3/?L. The reference range was not used to interpret this result as normal/abnormal. MPV (test code = 06918-9) 11.0 fL 9.5-12.9 NRBC/100 WBC (test code = 6250220635) See_Comment [Automated message] The system which generated this result transmitted reference range: 0.0 - 10.0 /100 WBCs. The reference range was not used to interpret this result as normal/abnormal. NRBC x10^3 (test code = 0705113796) <0.01 See_Comment [Automated message] The system which generated this result transmitted reference range: 10*3/?L. The reference range was not used to interpret this result as normal/abnormal. GRAN MAT (NEUT) % (test code = 770-8) 76.2 % IMM GRAN % (test code = 8252976182) 1.30 % LYMPH % (test code = 736-9) 13.2 % MONO % (test code = 5905-5) 8.2 % EOS % (test code = 713-8) 0.8 % BASO % (test code = 706-2) 0.3 % GRAN MAT x10^3(ANC) (test code = 0681489383) 13.18 10*3/uL 1.88-7.09 H IMM GRAN x10^3 (test code = 1699409131) 0.23 10*3/uL 0-0.06 H LYMPH x10^3 (test code = 731-0) 2.28 10*3/uL 1.32-3.29 MONO x10^3 (test code = 742-7) 1.42 10*3/uL 0.33-0.92 H EOS x10^3 (test code = 711-2) 0.13 10*3/uL 0.03-0.39 BASO x10^3 (test code = 704-7) 0.05 10*3/uL 0.01-0.07 Lab Interpretation (test code = 34556-6) [facility]normal [facility] - [id number] 08:55:00* Test Item Value Reference Range Interpretation Comme nts RPR (Qualitative) (test code = 95153-9) Nonreactive Nonreactive Lab Interpretation (test cod e = 35258-4) Normal [facility] IMMUNE [id number] 06:27:46* Test Item Value Reference Range Interpretation Comme nts RHIG CANDIDATE? (test code = 5055) No- see comment Patient is not a candidate for RhIg- Patient is Rh Positive.Performed at [facility] Laboratory Services - [facility] Blood [address] [place] [id number] Free: [phone] No. [id number] [facility]ennial[facility]TERIAL CORD [id number] 01:12:00* Test Item Value Reference Range Interpretation Comme nts BASE EXCESS, CORD (test code = 5780823600) mEq/L AC PH, CORD (BEAKER) (test code = 1776480751) 7.18-7.38 PC02, CORD (test code = 2864430578) See_Comment [Automated messa ge] The system which generated this result transmitted reference range: 32 - 66 mmHg. The reference range was not used to interpret this result as normal/abnormal. PO2, CORD (test code = 0357781833) See_Comment [Automated messa ge] The system which generated this result transmitted reference range: 10 - 30 mmHg. The reference range was not used to interpret this result as normal/abnormal. BICARBONATE, CORD (test code = 9041570225) See_Comment [Automated messa ge] The system which generated this result transmitted reference range: 17 - 27 mEq/L. The reference range was not used to interpret this result as normal/abnormal. [facility]ennial[facility] CORD [id number] 01:08:00* Test Item Value Reference Range Interpretation Comme nts VENOUS BASE EXCESS, CORD (test code = 5981722214) mEq/L VENOUS PH, CORD (test code = 8042596732) 7.25-7.45 VENOUS PC02, CORD (test code = 2540000473) See_Comment [Automated messa ge] The system which generated this result transmitted reference range: 27 - 49 mmHg. The reference range was not used to interpret this result as normal/abnormal. VENOUS PO2, CORD (test code = 8814010002) See_Comment [Automated me ssage] The system which generated this result transmitted reference range: 17 - 41 mmHg. The reference range was not used to interpret this result as normal/abnormal. VENOUS BICARBONATE, CORD (test code = 7825607532) See_Comment QUES [Automated message] The system which generated this result transmitted reference range: 12 - 29 mEq/L. The reference range was not used to interpret this result as normal/abnormal. [facility]ennial[facility]atitis B Surface [id number] 16:14:00 * Test Item Value Reference Range Interpretation Comme nts HBsAg Semi-Quantitative (bebe t code = 5195-3) Negative Negative [facility]ennialType and Screen - ONCE [id number] 12:25:45 * Test Item Value Reference Range Interpretation Comme nts ABO & RH (test code = 20) O Positive Performed at [facility] Laboratory [facility] - [facility] Blood [address] [place] [id number] Free: [phone] No. [id number] IAT (test code = 1185) Negative Performed at [facility] Laboratory [facility] Blood [address] [phone] Free: [phone] No. [id number] [facility]ennialHIV 1/2 AG-AB WITH [id number] 12:19:00* Test Item Value Reference Range Interpretation Comme nts HIV Semi-quantitative (test code = 57017-1) Negative Negative COLLEEN (test code = COLLEEN) Non-reactive for HIV-1 antigen and HIV-1/HIV-2 antibodies. ?No laboratory evidence of HIV infection. ?Repeat in 2-4 weeks if acute HIV infection is suspected. [facility] with [id number] 11:28:00* Test Item Value Reference Range Interpretation [...] g/dL 31.6-35.1 L RDW-SD (test code = 36680-7) 41.6 fL 39-49.9 RDW-CV (test code = 788-0) 14.6 % 12-15.5 PLT (test code = 777-3) See_Comment [Automated message] The system which generated this result transmitted reference range: 166 - 358 10*3/?L. The reference range was not used to interpret this result as normal/abnormal. MPV (test code = 44940-9) 10.6 fL 9.5-12.9 NRBC/100 WBC (test code = 7413948497) See_Comment [Automated message] The system which generated this result transmitted reference range: 0.0 - 10.0 /100 WBCs. The reference range was not used to interpret this result as normal/abnormal. NRBC x10^3 (test code = 6816014203) <0.01 See_Comment [Automated message] The system which generated this result transmitted reference range: 10*3/?L. The reference range was not used to interpret this result as normal/abnormal. GRAN MAT (NEUT) % (test code = 770-8) 73.3 % IMM GRAN % (test code = 6820226875) 2.20 % LYMPH % (test code = 736-9) 15.2 % MONO % (test code = 5905-5) 7.6 % EOS % (test code = 713-8) 1.2 % BASO % (test code = 706-2) 0.5 % GRAN MAT x10^3(ANC) (test code = 3408606102) 12.36 10*3/uL 1.88-7.09 H IMM GRAN x10^3 (test code = 3809766141) 0.37 10*3/uL 0-0.06 H LYMPH x10^3 (test code = 731-0) 2.57 10*3/uL 1.32-3.29 MONO x10^3 (test code = 742-7) 1.28 10*3/uL 0.33-0.92 H EOS x10^3 (test code = 711-2) 0.20 10*3/uL 0.03-0.39 BASO x10^3 (test code = 704-7) 0.08 10*3/uL 0.01-0.07 H Lab Interpretation (test code = 08239-9) Abnormal [facility]OVID-[facility] (ID NOW RAPID TESTING)2020-08-14 09:59:00* Test Item Value Reference Range Interpretation Comme nts SARS-CoV-2 Rapid ID NOW (test code = 90723-1) Not Detected Not Detected COLLEEN (test code = COLLEEN) ID NOW COVID-19 As say is an isothermal nucleic acid amplification test intended for the qualitative detection of nucleic acid from SARS-CoV-2 viral RNA in nasopharyngeal (EMERGENCY MEDICINE PHYSICIAN) specimens. It is used under Emergency Use [...] clinically indicated. Lab Interpretation (test code = 32944-7) Normal [facility] ONLY - FERN [id number] 09:34:00* Test Item Value Reference Range Interpretation Comme nts Fern Test (test code = 0035572523) Positive [facility]ennialFETAL NON-STRESS [id number] 19:55:33NST: cat 1, reactive/reassuring, no ctx, +accels, neg decls, moderate variability [facility] URINALYSIS W SPECIFIC [id number] 19:06:00* Test Item Value Reference Range Interpretation [...] POCT U APPEAR (test code = 3267) [facility] URINALYSIS W SPECIFIC [id number] 18:05:00* Test Item Value Reference Range Interpretation [...] POCT U APPEAR (test code = 3267) [facility] URINALYSIS W SPECIFIC [id number] 14:33:00* Test Item Value Reference Range Interpretation [...] POCT U APPEAR (test code = 3267) [facility] URINALYSIS W SPECIFIC [id number] 16:11:00* Test Item Value Reference Range Interpretation [...] POCT U APPEAR (test code = 3267) [facility] URINALYSIS W SPECIFIC [id number] 16:11:00* Test Item Value Reference Range Interpretation [...] POCT U APPEAR (test code = 3267) [facility] URINALYSIS W SPECIFIC [id number] 16:11:00* Test Item Value Reference Range Interpretation [...] POCT U APPEAR (test code = 3267) [facility] URINALYSIS W SPECIFIC [id number] 16:11:00* Test Item Value Reference Range Interpretation [...] POCT U APPEAR (test code = 3267) [facility] URINALYSIS W SPECIFIC [id number] 14:01:00* Test Item Value Reference Range Interpretation [...] POCT U APPEAR (test code = 3267) [facility] URINALYSIS W SPECIFIC [id number] 15:33:00* Test Item Value Reference Range Interpretation [...] POCT U APPEAR (test code = 3267) [facility] URINALYSIS W SPECIFIC [id number] 15:33:00* Test Item Value Reference Range Interpretation [...] POCT U APPEAR (test code = 3267) [facility] URINALYSIS W SPECIFIC [id number] 15:33:00* Test Item Value Reference Range Interpretation [...] POCT U APPEAR (test code = 3267) [facility] URINALYSIS W SPECIFIC [id number] 16:24:00* Test Item Value Reference Range Interpretation [...] POCT U APPEAR (test code = 3267) [facility] URINALYSIS W SPECIFIC [id number] 15:54:00* Test Item Value Reference Range Interpretation [...] POCT U APPEAR (test code = 3267) [facility] URINALYSIS W SPECIFIC [id number] 15:54:00* Test Item Value Reference Range Interpretation [...] POCT U APPEAR (test code = 3267) [facility] URINALYSIS W SPECIFIC [id number] 15:54:00* Test Item Value Reference Range Interpretation [...] POCT U APPEAR (test code = 3267) [facility] URINALYSIS W SPECIFIC [id number] 15:20:00* Test Item Value Reference Range Interpretation [...] POCT U APPEAR (test code = 3267) [facility] URINALYSIS W SPECIFIC [id number] 19:05:00* Test Item Value Reference Range Interpretation [...] POCT U APPEAR (test code = 3267) [facility] URINALYSIS W SPECIFIC [id number] 19:05:00* Test Item Value Reference Range Interpretation [...] POCT U APPEAR (test code = 3267) [facility] [id number] 14:49:00* Test Item Value Reference Range Interpretation Comme nts POCT PREG (test code = 1605) Positive On board controls acceptable with C Line (test code = 3574) Yes POCT PREG LOT # (test code = 3575) POCT PREG TEST DATE ( test code = 3576) [facility] W/O SPECIFIC [id number] 14:49:00* Test Item Value Reference Range Interpretation [...] [facility] Notes Date/Time Note Provider Source 2024-11-19 01:31:07 [...] in no apparent distress, ENY Suh RN [facility] 2024-11-18 23:55:39 C/o sore throat, body aches, chest congestion, bilateral ear pain x2 days ENY Lynch RN [facility] 2024-04-03 08:53:31 Chief Complaint Patient presents with Contraception Follow up on control Juan Perez LVN [facility] 2024-02-27 11:27:29 PATIENT IS IN ROOM: 15 PHQ questionnaire score: 0 NIMESH questionnaire score: 0 Not on File Patient agreed to STD testing today. Patient has complaints and concerns of vaginal dryness, pain with intercourse, and bleeding with intercourse. control: B/L tubal ligation LMP Dates from Last 1 Encounters: No data found for LMP No results found for: "PAP" [facility]
[2025-01-22] MEDS ORDERED: KETOROLAC 30 MG/ML INJ ONE (09:36)
[2025-01-22] MEDS ORDERED: NA CHLORIDE 0.9% 1,000 ML ONE (09:37)
[2025-01-22 09:45] LABS: PT Prothrombin Time 12.6 SECONDS (10-13.0); Protime INR 1.11
[2025-01-22 09:50] LABS: Absolute Basophils 0.1 K/uL (0-0.5); Absolute Eosinophils 0.1 K/uL (0-0.5); Absolute Lymphocytes (CBC) 2.2 K/uL (0.7-4.9); Absolute Monocytes 0.6 K/uL (0.1-1.3); Absolute Neutrophil 7.3 K/uL (1.8-8.0); Basophils % 0.6 % (0-1.3); Eosinophils % 1.3 % (0-4.4); MCH 28.9 pg (27.0-35.0); MCHC 33.3 g/dL (32.0-36.0); MCV 86.7 fL (80-100); MPV 7.7 fL (7.6-11.3); Neutrophils % 71.1 % (41.7-73.7); Nucleated Red Blood Cells % 0.1 % (0-0); Platelets 424 thou/uL (152-406); RBC Red Blood Cell Count 4.49 M/uL (3.86-4.86); Red Cell Distribution Width 13.8 % (12.1-15.2)
--- NOTE | 2025-01-22 09:56 | RAD REPORT ---
EXAM: CT brain without contrast HISTORY: HEADACHE COMPARISON: 07/01/2023 TECHNIQUE: Multiple contiguous axial images were obtained and a CT of the brain without contrast. Sag ittal and coronal reformats were performed. One or more of the following dose reduction techniques were used: Automated exposure control, adjust ment of the mA and/or kV according to patient size, and/or iterative reconstruction. FINDINGS: No evidence of hydrocephalus, intracranial hemorrhage, or extra-axial fluid collection. The brain is normal in morphology. No evidence of midline shift or areas of brain edema. The calvarium is intact. The visualized paranasal sinuses and mastoid air cells are essentially clear . IMPRESSION: No evidence of acute intracranial abnormality.
--- NOTE | 2025-01-22 10:07 | RAD REPORT ---
EXAMINATION: ONE VIEW CHEST XR CLINICAL INDICATION: near syncope TECHNIQUE: Frontal chest projection is submitted. Examination is limited by patient positioning and t echnique. COMPARISON: 09/01/2018 FINDINGS: The lungs are well inflated and clear. The heart is normal in size. No displaced fractures identified . Mild thoracic dextroscoliosis. IMPRESSION: No acute intrathoracic abnormalities.
[2025-01-22 10:58] LABS: ALT/SGPT < 14 U/L (13-56); AST/SGOT < 10 U/L (15-37); Albumin 3.7 g/dL (3.4-5.0); Albumin/Globulin Ratio 0.9 (1.1-1.8); Alkaline Phosphatase 64 U/L (45-117); Anion Gap 8.3 mEq/L (5.0-15.0); BUN Blood Urea Nitrogen 16 mg/dL (7-18); Bicarbonate 27 mEq/L (21-32); Bilirubin Direct < 0.2 mg/dL (0-0.2); Bilirubin Indirect, Calculated 0.3 mg/dL (0.2-0.8); Bilirubin Total 0.5 mg/dL (0.2-1.0); Globulin 4.2 g/dL (2.3-3.5); Glomerular Filtration Rate 84 ml/min (=/>90); Glucose Level 101 mg/dL (74-106); Magnesium 2.1 mg/dL (1.6-2.4); Potassium 3.3 mEq/L (3.5-5.1); Protein, Total 7.9 g/dL (6.4-8.2); Sodium Level 138 mEq/L (136-145); Troponin High Sensitivity 4.1 pg/mL (<58.9)
--- NOTE | 2025-01-22 11:13 | ER ---
Nurse's Notes [facility] Name: Maricel Nur Age: 29 yrs Sex: Female : 1995 Arrival Date: 01/22/2025 Time: 09:01 Bed 5 Private MD: Diagnosis: Syncope Near;Headache Presentation: 01/22 09:13 Chief complaint: EMS states: Toned out for weakness and near syncope. Pt reports jl7 standing the kitchen, got diaphoretic and started seeing black a felt like she was going to pass out. Coronavirus screen: At this time, the client does not indicate any symptoms associated with coronavirus-19. Ebola Screen: No symptoms or risks identified at this time. Initial Sepsis Screen: Does the patient meet any 2 criteria? No. Patient's initial sepsis screen is negative. Does the patient have a suspected source of infection? No. Patient's initial sepsis screen is negative. Risk Assessment: Do you want to hurt yourself or someone else? Patient reports no desire to harm self or others. Onset of symptoms was January 22, 2025. 09:13 Method Of Arrival: EMS: [facility] jl7 09:13 Acuity: ALEXANDER 3 jl7 09:13 Care prior to arrival: BGL 79, 15 G oral glucose given and BGL 130. jl7 Triage Assessment: 09:17 General: Appears in no apparent distress. uncomfortable, Behavior is calm, cooperative, jl7 appropriate for age. Pain: Complains of pain in headache Pain currently is 10 out of 10 on a pain scale. 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 - Infectious Disease History:: Denies. - Social history:: Smoking status: Patient denies any tobacco usage or history of. Screenin:25 [facility] ED Fall Risk Assessment (Adult) History of falling in the last 3 months, iw including since admission No falls in past 3 months (0 pts) Confusion or Disorientation No (0 pts) Intoxicated or Sedated No (0 pts) Impaired Gait No (0 pts) Mobility Assist Device Used No (0 pt) Altered Elimination No (0 pt) Score/Fall Risk Level 0 - 2 = Low Risk Oriented to surroundings, Maintained a safe environment. Abuse screen: Denies threats or abuse. Denies injuries from another. 11:53 Nutritional screening: No deficits noted. Tuberculosis screening: No symptoms or risk cm10 factors identified. Assessment: 09:24 General: Appears in no apparent distress. Behavior is. Pain: Complains of pain in head iw Pain currently is 10 out of 10 on a pain scale. Neuro: Level of Consciousness is awake, alert, obeys commands, Oriented to person, place, time, situation, Moves all extremities. Neuro: Reports dizziness, headache a syncopal episode. Cardiovascular: Patient's skin is warm and dry. Respiratory: Respiratory effort is even, unlabored, Respiratory pattern is regular, symmetrical. GI: Abdomen is flat, non-distended. Derm: Skin is intact, is healthy with good turgor. Musculoskeletal: Range of motion: intact in all extremities. 10:57 Reassessment: Patient appears in no apparent distress at this time. Patient and/or db family updated on plan of care and expected duration. Pain level reassessed. Patient is alert, oriented x 3, equal unlabored respirations, skin warm/dry/pink. 11:51 Reassessment: Patient appears in no apparent distress at this time. Patient and/or cm10 family updated on plan of care and expected duration. Pain level reassessed. Patient is alert, oriented x 3, equal unlabored respirations, skin warm/dry/pink. Vital Signs: 09:13 BP 102 / 72; Pulse 76; Resp 17; Temp 97; Pulse Ox 100% ; Weight 61.23 kg; Height 5 ft. jl7 5 in. ; Pain 10/10; 10:45 BP 104 / 57; Pulse 54; Resp 16; Pulse Ox 100% ; db 11:30 BP 109 / 57; Pulse 63; Resp 14; Pulse Ox 93% ; cm10 09:13 Body Mass Index 22.46 (61.23 kg, 165.1 cm) jl7 09:13 Pain Scale: Adult jl7 ED Course: 09:07 Patient arrived in ED. ms3 09:07 Marx, Jose, DO is Attending Physician. ms3 09:16 Triage completed. jl7 09:17 Arm band placed on. EKG completed in triage. Results shown to MD. jl7 09:24 Jessica Perez, RN is Primary Nurse. iw 09:30 Basic Metabolic Panel Sent. bc6 09:30 CBC with Diff Sent. bc6 09:30 LFT's Sent. bc6 09:30 Magnesium Sent. bc6 09:30 PT-INR Sent. bc6 09:30 Troponin HS Sent. bc6 09:30 Initial lab(s) drawn, by pr, sent to lab. Inserted saline lock: 24 gauge in left bc6 antecubital area, using aseptic technique. Blood collected. Flushed with 10 mL NS. 09:34 CT Head Brain wo Cont In Process Unspecified. EDMS 09:40 XRAY Chest (1 view) In Process Unspecified. EDMS 09:51 Patient has correct armband on for positive identification. Provided Education on: lab iw draw. Client placed on continuous cardiac and pulse oximetry monitoring. NIBP monitoring applied. 11:12 Matt Caceres DO is Referral Physician. ms3 11:52 No provider procedures requiring assistance completed. IV discontinued, intact, cm10 bleeding controlled, No redness/swelling at site. Pressure dressing applied. Administered Medications: 09:42 Drug: Ketorolac IVP 10 mg 10 mg IVP once Route: IVP; Site: left antecubital; iw 11:50 Follow up: Response: No adverse reaction cm10 09:42 Drug: NS 0.9% IV 1000 ml IV at 1000 ml once; to be given as a bolus over 60 minutes iw Route: IV; Rate: 1000 ml; Site: left antecubital; 11:50 Follow up: Response: No adverse reaction; IV Status: Completed infusion; IV Intake: cm10 1000ml 11:51 Drug: Potassium Chloride PO 20 mEq PO once Route: PO; cm10 11:53 Follow up: Response: Medication administered at discharge. cm10 Medication: 09:52 VIS not applicable for this client. iw Intake: 11:50 IV: 1000ml; Total: 1000ml. cm10 Outcome: 11:12 Discharge ordered by MD. ms3 11:52 Discharged to home ambulatory, cm10 11:52 Condition: good 11:52 Discharge instructions given to patient, Instructed on discharge instructions, follow up and referral plans. Demonstrated understanding of instructions, follow-up care, 11:53 Patient left the ED. cm10 Signatures: Dispatcher [employer] EDJessica Hoover, RN RN Tyrone Arguelles RN RN jl7 Jose Marx, DO ms3 Crystal Levin RN RN db Audelia Tarango 6 Brenda Fields RN RN cm10
--- NOTE | 2025-01-22 11:13 | EDPHYS ---
Physician Documentation [facility] Name: Maricel Nur Age: 29 yrs Sex: Female : 1995 Arrival Date: 01/22/2025 Time: 09:01 Bed 5 Private MD: ED Physician Jose Marx HPI: 01/22 09:19 This 29 yrs old Female presents to ER via EMS with complaints of General Weakness - ms3 lightheaded. 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 Patient states she was standing when she became sweaty and her vision became dark. Patient states she sat down without improvement of her symptoms and then laid onto the floor. Patient denies loss of consciousness. Patient endorses headache that she rates a 10/10. She denies any alleviating or inciting factors.. 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 - Infectious Disease History:: Denies. - Social history:: Smoking status: Patient denies any tobacco usage or history of. ROS: 09:25 Constitutional: Negative for fever, and chills. Cardiovascular: Negative for chest ms3 pain, and palpitations. Respiratory: Negative for shortness of breath, cough, wheezing, and pleuritic chest pain, Abdomen/GI: Negative for abdominal pain, nausea, vomiting, diarrhea, and constipation, :25 Skin: Negative for injury, rash, and discoloration, : Neuro: Positive for headache, near syncope, Exam: : Constitutional: This is a well developed, well nourished patient who is awake, alert, ms3 and in no acute distress. Cardiovascular: Regular rate and rhythm with a normal S1 and S2. No gallops, murmurs, or rubs. Normal PMI, no JVD. No pulse deficits. Respiratory: Lungs have equal breath sounds bilaterally, clear to auscultation and percussion. No rales, rhonchi or wheezes noted. No increased work of breathing, no retractions or nasal flaring. Abdomen/GI: Soft, non-tender, with normal bowel sounds. No distension or tympany. No guarding or rebound. No evidence of tenderness throughout. Skin: Warm, dry with normal turgor. Normal color with no rashes, no lesions, and no evidence of cellulitis. MS/ Extremity: Pulses equal, no cyanosis. Neurovascular intact. Full, normal range of motion. 09:43 ECG was reviewed by the Attending Physician. ms3 Vital Signs: 09:13 BP 102 / 72; Pulse 76; Resp 17; Temp 97; Pulse Ox 100% ; Weight 61.23 kg; Height 5 ft. jl7 5 in. ; Pain 10/10; 10:45 BP 104 / 57; Pulse 54; Resp 16; Pulse Ox 100% ; db 11:30 BP 109 / 57; Pulse 63; Resp 14; Pulse Ox 93% ; cm10 09:13 Body Mass Index 22.46 (61.23 kg, 165.1 cm) jl7 09:13 Pain Scale: Adult jl7 MDM: 09:22 Medical Screening Exam initiated ms3 09:25 Differential Diagnosis: cardiac arrhythmia, vasovagal episode, Hypoglycemia vs SAH. ms3 11:13 Data reviewed: vital signs, nurses notes, lab test result(s), EKG, radiologic studies, ms3 and as a result, I will discharge patient. I considered the following discharge prescriptions or medication management in the emergency department Medications were administered in the Emergency Department. See MAR. Independent interpretation of the following test(s) in the Emergency Department EKG: See my EKG interpretation above. Historians other than the Patient: EMS: [facility]. Counseling: I had a detailed discussion with the patient and/or guardian regarding the historical points, exam findings, and any diagnostic results supporting the discharge/admit diagnosis, lab results, radiology results, the need for outpatient follow up, to return to the emergency department if symptoms worsen or persist or if there are any questions or concerns that arise at home. ED course: Discussed labs, imaging, EKG with patient. Patient remains alert and orient x 4, no apparent distress, nontoxic-appearing, speaking full sentences. Patient to follow-up Dr. Caceres in 2 to 3 days. Patient understands agrees with plan. All questions were answered. CBC without significant abnormalities, chemistry reveals mild hypokalemia. Troponin normal. EKG normal. Chest x-ray without acute or maladies. CT head does not show subarachnoid hemorrhage. Discussed lumbar puncture with patient patient declines at this time.. 01/22 09:08 Order name: Basic Metabolic Panel; Complete Time: 11:02 ms3 01/22 09:08 Order name: CBC with Diff; Complete Time: 10:21 ms3 01/22 09:08 Order name: LFT's; Complete Time: 11:02 ms3 01/22 09:08 Order name: Magnesium; Complete Time: 11:02 ms3 01/22 09:08 Order name: PT-INR; Complete Time: 10:21 ms3 01/22 09:08 Order name: Troponin HS; Complete Time: 11:02 ms3 01/22 09:08 Order name: XRAY Chest (1 view); Complete Time: 10:21 ms3 01/22 09:19 Order name: CT Head Brain wo Cont; Complete Time: 10:21 ms3 01/22 09:08 Order name: EKG; Complete Time: 09:10 ms3 01/22 09:08 Order name: Cardiac monitoring; Complete Time: 09:18 ms3 01/22 09:08 Order name: EKG - Nurse/Tech; Complete Time: 09:18 ms3 01/22 09:08 Order name: IV Saline Lock; Complete Time: 09:30 ms3 01/22 09:08 Order name: Labs collected and sent; Complete Time: 09:30 ms3 01/22 09:08 Order name: O2 Per Protocol; Complete Time: 09:18 ms3 01/22 09:08 Order name: O2 Sat Monitoring; Complete Time: 09:18 ms3 EC:43 Rate is 64 beats/min. Rhythm is regular. QRS [place] is Normal. MA interval is normal. QRS ms3 interval is normal. Clinical impression: NSR w/ Non-specific ST/T Changes. Interpreted by me. Reviewed by me. Administered Medications: 09:42 Drug: Ketorolac IVP 10 mg 10 mg IVP once Route: IVP; Site: left antecubital; iw 11:50 Follow up: Response: No adverse reaction cm10 09:42 Drug: NS 0.9% IV 1000 ml IV at 1000 ml once; to be given as a bolus over 60 minutes iw Route: IV; Rate: 1000 ml; Site: left antecubital; 11:50 Follow up: Response: No adverse reaction; IV Status: Completed infusion; IV Intake: cm10 1000ml 11:51 Drug: Potassium Chloride PO 20 mEq PO once Route: PO; cm10 11:53 Follow up: Response: Medication administered at discharge. cm10 Disposition Summary: 01/22/25 11:12 Discharge Ordered Notes: Location: Home ms3 Condition: Stable ms3 Diagnosis - Syncope Near ms3 - Headache ms3 Followup: ms3 - With: Matt Caceres DO - When: 2 - 3 days - Reason: Recheck today's complaints Discharge Instructions: - Discharge Summary Sheet ms3 - General Headache Without Cause ms3 - Near-Syncope ms3 Forms: - Work release form jl7 - SBAR form jl7 - Medication Reconciliation Form ms3 - Antibiotic Education ms3 - Prescription Opioid Use ms3 - Patient Portal Instructions ms3 - Leadership Thank You Letter ms3 Signatures: Dispatcher [employer] Jessica Rose RN RN iw Tyrone Bañuelos RN RN jl7 Jose Marx DO DO ms3 Brenda Fields RN RN cm10 Corrections: (The following items were deleted from the chart) 09:11 09:11 BASIC METABOLIC PANEL+C.LAB.BRZ ordered. EDMS EDMS 09:11 09:11 CBC+H.LAB.BRZ ordered. EDMS EDMS 09:11 09:11 HEPATIC FUNCTION+C.LAB.BRZ ordered. EDMS EDMS 09:11 09:11 MAGNESIUM+C.LAB.BRZ ordered. EDMS EDMS 09:11 09:11 PROTIME (+INR)+COAG.LAB.BRZ ordered. EDMS EDMS 09:11 09:11 Troponin High Sensitivity+C.LAB.BRZ ordered. EDMS EDMS 09:11 09:11 Chest Single View+RAD.RAD.BRZ ordered. EDMS EDMS 09:26 09:19 . ms3 ms3
[2025-01-22] MEDS ORDERED: POTASSIUM CL SA 10 MEQ TAB PO ONE (11:49)
[2025-01-22 12:46] VITALS: TEMP 97
[2025-01-22 12:53] VITALS: BP 109/57; O2SAT 93
--- NOTE | 2025-01-23 11:50 | EKG ---
Test Date: 2025-01-22 Test Time: 09:10:01 Operations Logistics Analyst: JUAN MEASUREMENT RESULTS: Intervals: Rate: 64 GA: 124 QRSD: 82 QT: 400 QTc: 412 [place]: P: 81 GA: 124 QRS: 74 T: 73 INTERPRETIVE STATEMENTS: Normal sinus rhythm with sinus arrhythmia Right atrial enlargement Borderline ECG Compared to ECG 10/02/2022 09:13:40 No significant changes Electronically Signed On 01-23-25 11:48:44 CDT by Holger Esparza
== END 2025-01-22 11:53 | disposition home or self-care (01) ==
LOC: ER 09:01
DX: R55 Syncope and collapse (principal); R51.9 Headache, unspecified
CPT/HCPCS: 85025; 80048; 36415; 83735; 85610; 80076; 84484; 70450; 71045; J7030; 93005